=== PATIENT | female | born 1950 | race Caucasian/White ===

== ENCOUNTER → 2016-06-10 | Outpatient (CLI) | payer MEDICARE, BC ==
[2016-06-10 12:07] LABS: Basophils # (A) 0.1 k/uL (0-0.2); Basophils % (A) 1 %; CH 31.7; CHCM 31.8; Eosinophils # (A) 0.5 k/uL (0-0.7); Eosinophils % (A) 8 %; HCT 48.8 % (34.0-46.0); HDW 2.62; HGB 15.2 gm/dL (11.4-16.0); Luc # (Auto) 0.13; Luc % (Auto) 2; Lymphocytes # (A) 1.3 k/uL (1.0-4.8); Lymphocytes % (A) 20 %; MCH 31.2 pg (25.0-35.0); MCHC 31.2 g/dL (31.0-37.0); MCV 100.1 fL (80.0-100.0); Mean Platelet Volume 9.4; Monocytes # (A) 0.4 k/uL (0-1.0); Monocytes % (A) 6 %; Neutrophils # (A) 4.1 k/uL (1.3-7.7); Neutrophils % (A) 63 %; RBC 4.88 m/uL (3.80-5.40); RDW 13.1 % (11.5-15.5); WBC 6.6 k/uL (3.8-10.6); WBC (Perox) 6.54
[2016-06-10 12:42] LABS: ALT 37 U/L (9-52); AST 34 U/L (14-36); Alkaline Phosphatase 95 U/L (38-126); Anion Gap 10 mmol/L; Blood Urea Nitrogen 21 mg/dL (7-17); Calcium 9.6 mg/dL (8.4-10.2); Carbon Dioxide 29 mmol/L (22-30); Chloride 104 mmol/L (98-107); Glucose 182 mg/dL (74-99); Non-African American GFR(MDRD) >60 (>60 ml/min/1.73 sqM); Potassium 4.9 mmol/L (3.5-5.1); Sodium 143 mmol/L (137-145); Total Bilirubin 0.9 mg/dL (0.2-1.3); Total Protein 7.3 g/dL (6.3-8.2)
[2016-06-10 14:20] LABS: Hemoglobin A1C 7.8 % (4.2-6.1)
== END | disposition home or self-care (01) ==
LOC: LABWHC1 11:08
PROVIDERS: ATTEND Family Medicine
DX: E11.9 Type 2 diabetes mellitus without complications (principal)
CPT/HCPCS: 36415; 80053; 83036; 85025

== ENCOUNTER → 2016-11-28 | Outpatient (CLI) | payer MEDICARE, BC ==
[2016-11-28 11:50] LABS: Basophils % (A) 1 %; CH 31.8; CHCM 32.4; Eosinophils # (A) 0.4 k/uL (0-0.7); Eosinophils % (A) 8 %; HCT 47.4 % (34.0-46.0); HDW 2.65; HGB 15.3 gm/dL (11.4-16.0); Luc # (Auto) 0.11; Luc % (Auto) 2; Lymphocytes # (A) 1.2 k/uL (1.0-4.8); Lymphocytes % (A) 24 %; MCH 31.8 pg (25.0-35.0); MCHC 32.3 g/dL (31.0-37.0); MCV 98.6 fL (80.0-100.0); Mean Platelet Volume 8.4; Monocytes # (A) 0.3 k/uL (0-1.0); Monocytes % (A) 5 %; Neutrophils # (A) 3.2 k/uL (1.3-7.7); Neutrophils % (A) 61 %; RBC 4.81 m/uL (3.80-5.40); RDW 12.6 % (11.5-15.5); WBC 5.3 k/uL (3.8-10.6); WBC (Perox) 5.41
[2016-11-28 12:04] LABS: ALT 40 U/L (9-52); AST 26 U/L (14-36); Alkaline Phosphatase 85 U/L (38-126); Anion Gap 9 mmol/L; Blood Urea Nitrogen 20 mg/dL (7-17); Calcium 9.7 mg/dL (8.4-10.2); Carbon Dioxide 28 mmol/L (22-30); Chloride 105 mmol/L (98-107); Cholesterol 163 mg/dL (<200); Glucose 153 mg/dL (74-99); HDL Cholesterol 61 mg/dL (40-60); Non-African American GFR(MDRD) >60 (>60 ml/min/1.73 sqM); Potassium 4.9 mmol/L (3.5-5.1); Sodium 142 mmol/L (137-145); Total Bilirubin 0.8 mg/dL (0.2-1.3); Total Protein 6.8 g/dL (6.3-8.2); Triglycerides 167 mg/dL (<150)
[2016-11-28 13:59] LABS: Hemoglobin A1C 7.6 % (4.2-6.1)
== END | disposition home or self-care (01) ==
LOC: LABWHC1 11:14
PROVIDERS: ATTEND Family Medicine
DX: E55.9 Vitamin D deficiency, unspecified (principal); E66.9 Obesity, unspecified; E11.9 Type 2 diabetes mellitus without complications
CPT/HCPCS: 36415; 80053; 80061; 82306; 83036; 84443; 85025

== ENCOUNTER → 2016-12-20 | Outpatient (CLI) | payer MEDICARE, BC ==
--- NOTE | 2016-12-24 07:13 | MM ---
Reason for exam: screening (asymptomatic). Last mammogram was performed 1 year and 3 months ago. History: Patient is postmenopausal. Family history of premenopausal breast cancer in sister at age 40. Physical Findings: A clinical breast exam by your physician is recommended on an annual basis and results should be correlated with mammographic findings. MG 3D Screening Mammo W/Cad Bilateral CC and MLO view(s) were taken. Prior study comparison: October 04, 2015, bilateral MG 3d screening mammo w/cad. April 13, 2014, bilateral MG screening mammo w CAD. March 05, 2013, bilateral digital screening mammo w/CAD. There are scattered fibroglandular densities. Finding: There are typically benign round, linear calcifications in both breasts. There is no discrete abnormality. ASSESSMENT: Benign, BI-RAD 2 RECOMMENDATION: Routine screening mammogram of both breasts in 1 year.
== END | disposition home or self-care (01) ==
LOC: RADMAMWWP 14:46
PROVIDERS: ATTEND Family Medicine
DX: Z12.31 Encounter for screening mammogram for malignant neoplasm of breast (principal)
CPT/HCPCS: 77063; G0202

== ENCOUNTER → 2017-02-05 | Outpatient (CLI) | payer MEDICARE, BC ==
[2017-02-05 11:57] LABS: Basophils % (A) 0 %; CH 32.1; CHCM 32.4; Eosinophils # (A) 0.5 k/uL (0-0.7); Eosinophils % (A) 8 %; HCT 48.5 % (34.0-46.0); HDW 2.66; HGB 15.8 gm/dL (11.4-16.0); Luc # (Auto) 0.16; Luc % (Auto) 2; Lymphocytes # (A) 1.7 k/uL (1.0-4.8); Lymphocytes % (A) 24 %; MCH 32.5 pg (25.0-35.0); MCHC 32.7 g/dL (31.0-37.0); MCV 99.6 fL (80.0-100.0); Mean Platelet Volume 8.5; Monocytes # (A) 0.4 k/uL (0-1.0); Monocytes % (A) 5 %; Neutrophils # (A) 4.2 k/uL (1.3-7.7); Neutrophils % (A) 60 %; RBC 4.87 m/uL (3.80-5.40); RDW 12.6 % (11.5-15.5); WBC (Perox) 6.82
[2017-02-05 12:32] LABS: Hemoglobin A1C 6.8 % (4.2-6.1)
[2017-02-05 12:50] LABS: ALT 34 U/L (9-52); AST 26 U/L (14-36); Alkaline Phosphatase 92 U/L (38-126); Anion Gap 10 mmol/L; Blood Urea Nitrogen 18 mg/dL (7-17); C Reactive Protein 9.5 mg/L (<10.0); Calcium 9.5 mg/dL (8.4-10.2); Carbon Dioxide 27 mmol/L (22-30); Chloride 104 mmol/L (98-107); Cholesterol 189 mg/dL (<200); Creatine Kinase 29 U/L (30-135); Glucose 166 mg/dL (74-99); HDL Cholesterol 57 mg/dL (40-60); Magnesium 1.8 mg/dL (1.6-2.3); Non-African American GFR(MDRD) >60 (>60 ml/min/1.73 sqM); Potassium 5.5 mmol/L (3.5-5.1); Sodium 141 mmol/L (137-145); Total Bilirubin 0.8 mg/dL (0.2-1.3); Total Protein 7.1 g/dL (6.3-8.2); Uric Acid 6.6 mg/dL (3.7-7.4)
[2017-02-05 14:35] LABS: Erythrocyte Sedimentation Rate 10 mm/hr (0-20)
[2017-02-06 01:45] LABS: ANA w/Reflex to Titer POSITIVE (NEGATIVE); Cyclic Citrull Pep IgG Unit <0.5 U/mL; Cyclic Citrullinated Pep IgG NEGATIVE (NEGATIVE)
== END | disposition home or self-care (01) ==
LOC: LABWHC1 10:36
PROVIDERS: ATTEND Internal Medicine
DX: E78.5 Hyperlipidemia, unspecified (principal); E11.9 Type 2 diabetes mellitus without complications; E03.9 Hypothyroidism, unspecified; E66.9 Obesity, unspecified; E55.9 Vitamin D deficiency, unspecified; M06.9 Rheumatoid arthritis, unspecified
CPT/HCPCS: 36415; 80053; 80061; 82306; 82550; 82570; 83036; 83605; 83735; 84156; 84439; 84443; 84550; 85025; 85652; 86038; 86039; 86140; 86200; 86225

== ENCOUNTER → 2017-02-17 | Outpatient (CLI) | payer MEDICARE, BC | END | disposition home or self-care (01) | LOC: LABWHC1 14:42 | PROVIDERS: ATTEND Internal Medicine | DX: E87.5 Hyperkalemia (principal); E11.9 Type 2 diabetes mellitus without complications | CPT/HCPCS: 36415; 84132 ==

== ENCOUNTER → 2017-07-03 | Outpatient (CLI) | payer MEDICARE, BC ==
[2017-07-03 10:55] LABS: Basophils # (A) 0.1 k/uL (0-0.2); Basophils % (A) 1 %; Eosinophils # (A) 0.6 k/uL (0-0.7); Eosinophils % (A) 9 %; HCT 46.8 % (34.0-46.0); HGB 14.5 gm/dL (11.4-16.0); Lymphocytes # (A) 1.5 k/uL (1.0-4.8); Lymphocytes % (A) 24 %; MCH 31.5 pg (25.0-35.0); MCHC 31.1 g/dL (31.0-37.0); MCV 101.3 fL (80.0-100.0); Mean Platelet Volume 8.7; Monocytes # (A) 0.3 k/uL (0-1.0); Monocytes % (A) 5 %; Neutrophils # (A) 3.7 k/uL (1.3-7.7); Neutrophils % (A) 59 %; Platelet Count 191 k/uL (150-450); RBC 4.62 m/uL (3.80-5.40); RDW 12.3 % (11.5-15.5); WBC 6.2 k/uL (3.8-10.6)
[2017-07-03 11:14] LABS: ALT 25 U/L (9-52); AST 22 U/L (14-36); Albumin 3.7 g/dL (3.5-5.0); Alkaline Phosphatase 90 U/L (38-126); Anion Gap 9 mmol/L; Blood Urea Nitrogen 18 mg/dL (7-17); Calcium 9.4 mg/dL (8.4-10.2); Carbon Dioxide 30 mmol/L (22-30); Chloride 105 mmol/L (98-107); Cholesterol 165 mg/dL (<200); Glucose 167 mg/dL (74-99); HDL Cholesterol 55 mg/dL (40-60); LDL Cholesterol,Calculated 84 mg/dL (0-99); Potassium 4.8 mmol/L (3.5-5.1); Sodium 144 mmol/L (137-145); Total Bilirubin 0.5 mg/dL (0.2-1.3); Total Protein 6.5 g/dL (6.3-8.2); Triglycerides 131 mg/dL (<150)
--- NOTE | 2017-07-03 13:47 | XR ---
EXAMINATION TYPE: XR bone survey complete DATE OF EXAM: 07/03/2017 COMPARISON: NONE HISTORY: Deep vein thrombosis of lower extremities (HCC) Technique: Complete bone survey. FINDINGS: CXR: Lungs are clear without pleural effusion or pneumothorax seen bilaterally. Cardiac silhouette size is within normal limits. Accessory right C7 rib noted. No suspicious focal lytic or expansile o sseous lesion clearly seen. Bony calvarium : 2 views of the bony calvarium demonstrate no suspicious definitive focal irregular l ytic lesion. Spine: Two views of the cervical, thoracic and lumbar spines are submitted. Lumbar spine shows disc space narrowing with spurring L2-L3 level. There is vacuum disc phenomenon with sclerosis L3-L4 level . There is moderate to advanced disc space narrowing with vacuum disc phenomenon L4-L5 level. Spine i s straightened on lateral view. Osseous structures are somewhat demineralized. No definitive focal ly tic lesion is present. Moderate vascular calcification right neck is noted at carotid bulb level. PELVIS: Single view of the pelvis demonstrates metallic stent graft left common iliac region. Lucenc y from overlying bowel gas is noted making evaluation slightly suboptimal. No obvious suspicious lyti c lesion is present. UPPER EXTREMITIES: Two views of the upper extremities show no definitive focal lytic lesion. LOWER EXTREMITIES: 2 views of the lower extremities shows degenerative change at bilateral knee joint s. No definitive suspicious focal lytic scalloping lesion is identified. IMPRESSION: No definitive suspicious focal lytic lesions identified on survey.
[2017-07-03 17:37] LABS: Hemoglobin A1C 7.3 % (4.0-6.0)
== END | disposition home or self-care (01) ==
LOC: LABWHC1 10:18
PROVIDERS: ATTEND Internal Medicine Hematology & Oncology
DX: E03.9 Hypothyroidism, unspecified (principal); E11.9 Type 2 diabetes mellitus without complications; E78.2 Mixed hyperlipidemia; E55.9 Vitamin D deficiency, unspecified; I82.5Z9 Chronic embolism and thrombosis of unspecified deep veins of unspecified distal lower extremity; M17.0 Bilateral primary osteoarthritis of knee
CPT/HCPCS: 36415; 77075; 80053; 80061; 82043; 82306; 82570; 83036; 84443; 85025

== ENCOUNTER → 2018-06-09 | Outpatient (CLI) | payer MEDICARE, BC ==
--- NOTE | 2018-06-13 11:09 | MM ---
Reason for exam: screening (asymptomatic). Last mammogram was performed 1 year and 6 months ago. History: Patient is postmenopausal. Family history of premenopausal breast cancer in sister at age 40. Took hormonal contraceptives for 5 years. MG 3D Screening Mammo W/Cad Bilateral CC and MLO view(s) were taken. Prior study comparison: December 20, 2016, bilateral MG 3d screening mammo w/cad. October 04, 2015, bilateral MG 3d screening mammo w/cad. There are scattered fibroglandular densities. No significant changes when compared with prior studies. ASSESSMENT: Benign, BI-RAD 2 RECOMMENDATION: Routine screening mammogram of both breasts in 1 year.
== END | disposition home or self-care (01) ==
LOC: RADMAMWWP 15:39
PROVIDERS: ATTEND Internal Medicine
DX: Z12.31 Encounter for screening mammogram for malignant neoplasm of breast (principal)
CPT/HCPCS: 77063; 77067

== ENCOUNTER → 2018-10-30 | Outpatient (CLI) | payer MEDICARE, BC ==
--- NOTE | 2018-10-30 15:38 | XR ---
EXAMINATION TYPE: XR chest 2V DATE OF EXAM: 10/30/2018 COMPARISON: 06/08/2013 HISTORY: Persistent cough TECHNIQUE: Frontal and lateral views of the chest are obtained. FINDINGS: Diffuse interstitial prominence in the gradient effect greatest at the lung bases. Cardiom ediastinal limits within normal limits. No sizable pleural effusion or pneumothorax. Mild diffuse oss eous demineralization and minimal degenerative changes of the spine are seen. Overall there are low l faustino volumes. IMPRESSION: Although there are low lung volumes accentuate pulmonary vasculature there appears to be mild diffuse interstitial prominence that can be seen in atypical pneumonitis or mild interstitial p ulmonary edema.
== END ==
LOC: RADXRMAIN 15:13
PROVIDERS: ATTEND Internal Medicine
DX: R05 Cough (principal)
CPT/HCPCS: 71046

== ENCOUNTER → 2018-11-17 | Outpatient (CLI) | payer MEDICARE, BC ==
[2018-11-17 12:52] LABS: Basophils % (A) 1 %; Eosinophils # (A) 0.4 k/uL (0-0.7); Eosinophils % (A) 7 %; HGB 14.5 gm/dL (11.4-16.0); Lymphocytes # (A) 1.3 k/uL (1.0-4.8); Lymphocytes % (A) 19 %; MCH 31.5 pg (25.0-35.0); MCHC 31.5 g/dL (31.0-37.0); MCV 100.3 fL (80.0-100.0); Mean Platelet Volume 8.2; Monocytes # (A) 0.3 k/uL (0-1.0); Monocytes % (A) 5 %; Neutrophils # (A) 4.4 k/uL (1.3-7.7); Neutrophils % (A) 66 %; Platelet Count 183 k/uL (150-450); RBC 4.59 m/uL (3.80-5.40); RDW 12.6 % (11.5-15.5); WBC 6.6 k/uL (3.8-10.6)
[2018-11-17 13:12] LABS: Appearance,Urine Cloudy (Clear); Bilirubin,Urine Negative (Negative); Blood,Urine Small (Negative); Color,Urine Yellow; Glucose,Urine (UA) Negative (Negative); Hyaline Casts,Urine 1 /lpf (0-2); Ketones,Urine Negative (Negative); Leukocyte Esterase,Urine Trace (Negative); Mucus,Urine Rare /hpf; Nitrite,Urine Negative (Negative); PH, Urine 5.5 (5.0-8.0); Protein,Urine 1+ (Negative); RBC,Urine 8 /hpf (0-5); Specific Gravity,Urine 1.027 (1.001-1.035); Squamous Epithelial Cell,Urine 3 /hpf (0-4); Uric Acid Crystals,Urine Few /hpf; Urobilinogen,Urine <2.0 mg/dL (<2.0); WBC,Urine 7 /hpf (0-5)
[2018-11-17 22:35] LABS: Hemoglobin A1C 7.2 % (4.0-6.0)
[2018-11-18 03:47] LABS: African American GFR (CKD) 103.2 (60.0-200.0); Albumin 4.1 g/dL (3.80-4.90); Albumin/Globulin Ratio 1.78 (1.60-3.17); Anion Gap 10.2 mmol/L (4.00-12.00); BUN/Creat Ratio 24.29 Ratio (12.00-20.00); Calcium 9.7 mg/dL (8.7-10.3); Carbon Dioxide 23.8 mmol/L (21.6-31.8); Globulin 2.3 g/dL (1.6-3.3); Potassium 5.3 mmol/L (3.5-5.5); Total Bilirubin 0.8 mg/dL (0.3-1.2); Total Protein 6.4 g/dL (6.2-8.2)
== END | disposition home or self-care (01) ==
LOC: LABWHC1 11:21
PROVIDERS: ATTEND Internal Medicine
DX: E11.9 Type 2 diabetes mellitus without complications (principal); E55.9 Vitamin D deficiency, unspecified; N39.0 Urinary tract infection, site not specified; E03.9 Hypothyroidism, unspecified; E78.2 Mixed hyperlipidemia
CPT/HCPCS: 36415; 80053; 80061; 81001; 82043; 82306; 82570; 83036; 84443; 85025; 87086

== ENCOUNTER 2018-12-01 15:21 | Emergency (ER) | payer MEDICARE, BC ==
[2018-12-01] MEDS ORDERED: OXYMETAZOLINE 0.05% NASL SPRAY 1 SPRAY BOTTLE NASAL STA (16:13)
[2018-12-01 16:28] VITALS: RESP 20
--- NOTE | 2018-12-01 17:00 | ED ---
ENT HPI - General Chief complaint: ENT Stated complaint: nose bleed Time Seen by Provider: 12/01/18 15:41 Source: patient Mode of arrival: wheelchair Limitations: no limitations - History of Present Illness Initial comments: Patient is a 68-year-old female presenting to emergency Department with epistaxis. Patient reports active bleeding started approximately one hour ago and has only resolved recently. Patient reports swallowing and spitting up blood. Patient reports applying pressure on bilateral nostrils leaning her head forward. Patient reports the bleeding is localized to the right nausea. Patient denies nausea, vomiting, headache, dizziness, lightheadedness or syncope. Patient denies any trauma to the nose. Patient denies previous h istory of epistaxis. Patient reports sleeping next to her and her conditioning vent. - Related Data Home Medications Medication Instructions Recorded Confirmed Acetaminophen [Tylenol 8 Hour] 650 mg PO Q8H 12/01/18 12/01/18 Albuterol Sulfate [Proair Hfa] 2 puff INHALATION RT-Q6H PRN 12/01/18 12/01/18 Aspirin EC [Ecotrin Low Dose] 81 mg PO BID 12/01/18 12/01/18 Cholecalciferol [Vitamin D3 (25 4,000 unit PO BID 12/01/18 12/01/18 Mcg = 1000 Iu)] metFORMIN HCL [Glucophage] 500 mg PO BID 12/01/18 12/01/18 Allergies Allergy/AdvReac Type Severity Reaction Status Date / Time amoxicillin Allergy Rash/Hives Verified 12/01/18 16:05 dill weed Allergy Rash/Hives Uncoded 12/01/18 16:05 Review of Systems ROS Statement: Those systems with pertinent positive or pertinent negative responses have been documented in the HPI. ROS Other: All systems not noted in ROS Statement are negative. Past Medical History Additional Past Medical History / Comment(s): kidney stones. blood clot in leg History of Any Multi-Drug Resistant Organisms: None Reported Past Surgical History: Hysterectomy, Orthopedic Surgery, Tubal Ligation Additional Past Surgical History / Comment(s): kidney stone removal Past Psychological History: No Psychological Hx Reported Smoking Status: Former smoker Past Alcohol Use History: None Reported Past Drug Use History: None Reported General Exam Limitations: no limitations General appearance: alert, in no apparent distress, obese Head exam: Present: atraumatic, normocephalic, normal inspection Eye exam: Present: normal appearance, PERRL, EOMI Pupils: Present: normal accommodation ENT exam: Present: mucous membranes moist, normal external ear exam. Absent: normal exam, normal oropharynx (Blood residue noted in the right nostril. Blood residue also noted on the posterior pharynx. Ruptured blood vessel cannot be localized) Neck exam: Present: normal inspection, full ROM Respiratory exam: Present: normal lung sounds bilaterally Cardiovascular Exam: Present: regular rate, normal rhythm, normal heart sounds Extremities exam: Present: normal inspection, full ROM Back exam: Present: normal inspection, full ROM Neurological exam: Present: alert, oriented X3 Psychiatric exam: Present: normal affect, normal mood Skin exam: Present: warm, intact, normal color Course Vital Signs 12/01/18 12/01/18 12/01/18 15:33 16:27 17:10 Temperature 97.5 F L 98.1 F Pulse Rate 101 H 106 H 88 Respiratory 18 20 20 Rate Blood Pressure 173/108 154/91 157/85 O2 Sat by Pulse 95 95 99 Oximetry Medical Decision Making - Medical Decision Making Patient is a 68-year-old female presenting to the emergency department with epistaxis. On examination no active bleeding was noted . Afrin nasal spray was applied to bilateral nostrils and pressure was reapplied for approximately 10- 15 minutes. At this point the bleeding has completely resolved. I could not visualize a blood vessel responsible for the epistaxis. Although I suspect this to be an anterior nosebleed. Patient advised to use [place] several times throughout the day and avoid staying close to open air vents. Patient advised to apply Vaseline bilateral nostrils twice a day. Patient advised to follow up with ENT. Strict return parameters were thoroughly discussed with patient who is understanding and agreeable. Case discussed with physician. Disposition Clinical Impression: Epistaxis not due to trauma Disposition: HOME SELF-CARE Condition: Stable Instructions (If sedation given, give patient instructions): Nosebleed (ED) Additional Instructions: Please follow-up with ENT. Avoid staying close to air-conditioning or events. Apply [place] several times throughout the day and Vaseline in both nostrils. Use Afrin spray if the nosebleed recurs. Is patient prescribed a controlled substance at d/c from ED?: No Referrals: Pat Angulo MD [Primary Care Provider] - 1-2 days Ronni Bateman DO [Doctor of Osteopathic Medicine] - 1-2 days Time of Disposition: 17:00
[2018-12-01 17:20] VITALS: BP 157/85; PULSE 88; TEMP 98.1
== END 2018-12-01 17:10 | disposition home or self-care (01) ==
LOC: EC 15:21
DX: R04.0 Epistaxis (principal); Z79.82 Long term (current) use of aspirin; Z79.84 Long term (current) use of oral hypoglycemic drugs; Z88.0 Allergy status to penicillin; Z91.048 Other nonmedicinal substance allergy status; Z87.891 Personal history of nicotine dependence
CPT/HCPCS: 99283

== ENCOUNTER → 2018-12-24 | Outpatient (CLI) | payer MEDICARE, BC ==
--- NOTE | 2018-12-25 07:57 | XR ---
EXAMINATION TYPE: XR KUB DATE OF EXAM: 12/24/2018 4:14 PM CLINICAL HISTORY: Follow-up for bilateral kidney stones TECHNIQUE: Single supine KUB image of the abdomen is obtained. COMPARISON: 05/16/2013. FINDINGS: There is a levoscoliosis of the lumbar spine and severe degenerative disc disease. Left com mon iliac vascular graft is noted. Similar to 2013 there is a calculus overlying the right renal shadow appearing 1.7 cm in size. Puncta te 2 mm left lower pole renal calculus is suspected. Phleboliths are seen within the pelvis. No calcu li overlie the course of the ureters. No dilated large or small bowel. IMPRESSION: Similar approximately 1.6 cm calculus overlying the right renal midpole/pelvis in compari son the prior 2012 with probable left lower pole renal calculus.
== END | disposition home or self-care (01) ==
LOC: RADXRMAIN 16:03
PROVIDERS: ATTEND Urology
DX: N20.0 Calculus of kidney (principal)
CPT/HCPCS: 74018

== ENCOUNTER 2019-02-05 14:15 | Emergency (ER) | payer MEDICARE, BC ==
[2019-02-05 15:02] LABS: Appearance,Urine Clear (Clear); Bilirubin,Urine Negative (Negative); Blood,Urine Moderate (Negative); Color,Urine Yellow; Glucose,Urine (UA) 2+ (Negative); Ketones,Urine Negative (Negative); Leukocyte Esterase,Urine Negative (Negative); Mucus,Urine Rare /hpf; Nitrite,Urine Negative (Negative); PH, Urine 5.5 (5.0-8.0); Protein,Urine 1+ (Negative); RBC,Urine 178 /hpf (0-5); Specific Gravity,Urine 1.011 (1.001-1.035); Squamous Epithelial Cell,Urine 1 /hpf (0-4); Urobilinogen,Urine <2.0 mg/dL (<2.0); WBC,Urine 5 /hpf (0-5)
[2019-02-05] MEDS ORDERED: SODIUM CHLORIDE 0.9% 500 ML 500 ML IV STA (15:32)
[2019-02-05 16:33] LABS: Basophils # (A) 0.2 k/uL (0-0.2); Basophils % (A) 1 %; Eosinophils # (A) 0.5 k/uL (0-0.7); Eosinophils % (A) 4 %; HCT 48.7 % (34.0-46.0); HGB 15.2 gm/dL (11.4-16.0); Lymphocytes # (A) 1.6 k/uL (1.0-4.8); Lymphocytes % (A) 12 %; MCH 30.9 pg (25.0-35.0); MCHC 31.2 g/dL (31.0-37.0); MCV 99.2 fL (80.0-100.0); Mean Platelet Volume 8.4; Monocytes # (A) 0.5 k/uL (0-1.0); Monocytes % (A) 4 %; Neutrophils # (A) 10.4 k/uL (1.3-7.7); Neutrophils % (A) 78 %; Platelet Count 216 k/uL (150-450); RBC 4.91 m/uL (3.80-5.40); RDW 12.4 % (11.5-15.5); WBC 13.4 k/uL (3.8-10.6)
--- NOTE | 2019-02-05 16:53 | XR ---
EXAMINATION TYPE: XR KUB DATE OF EXAM: 02/05/2019 4:47 PM CLINICAL HISTORY: Left lower quadrant pain. History of kidney stones. TECHNIQUE: Two Upright KUB images of the abdomen are obtained. COMPARISON: Abdominal x-ray December 24, 2018. FINDINGS: Some paucity of bowel gas. Scattered gas seen in nondistended small and large bowel loops i ncluding rectum. Left common iliac artery stent graft noted. Underlying levoconvex scoliosis. Multile nicolette moderate to severe disc space narrowing and spurring in the mid to lower lumbar spine. No definit veronica nephrolithiasis. Lung bases are clear. IMPRESSION: Overall nonobstructive bowel gas pattern. No definitive nephrolithiasis.
--- NOTE | 2019-02-05 17:02 | US ---
EXAMINATION TYPE: US renals and bladder DATE OF EXAM: 02/05/2019 COMPARISON: CT abdomen and pelvis May 17, 2013 CLINICAL HISTORY: pain, hx kidney stone. LLQ pain hx of kidney stones stent in left kidney.Exam limit ed due to body habitus. EXAM MEASUREMENTS: Right Kidney: 12.3 x 6.8 x 7.3 cm Left Kidney: 11.3 x 5.8 x 5.4 cm Right Kidney: Multiple echogenic foci seen suggestive of kidney stones. Left Kidney: No hydronephrosis or stones seen. Bladder: wnl Bilateral Jets seen: No left. Suboptimal due to body habitus. No gross hydronephrosis is present bilaterally. Bladder not greatly d istended. Probable large simple appearing cyst right kidney as there is lobulated anechoic to hypoech oic area upper to midpole level correlating with CT. IMPRESSION: Suboptimal study without gross hydronephrosis identified bilaterally.
[2019-02-05 18:11] LABS: ALT 18 U/L (9-52); AST 25 U/L (14-36); African American GFR (CKD) >90 (>60 ml/min/1.73 sqM); Albumin 3.7 g/dL (3.5-5.0); Alkaline Phosphatase 69 U/L (38-126); Anion Gap 9 mmol/L; Blood Urea Nitrogen 17 mg/dL (7-17); Calcium 8.9 mg/dL (8.4-10.2); Carbon Dioxide 22 mmol/L (22-30); Chloride 110 mmol/L (98-107); Glucose 125 mg/dL (74-99); Non-African American GFR(CKD) >90 (>60 ml/min/1.73 sqM); Potassium 4.6 mmol/L (3.5-5.1); Sodium 141 mmol/L (137-145); Total Bilirubin 0.6 mg/dL (0.2-1.3); Total Protein 6.5 g/dL (6.3-8.2)
--- NOTE | 2019-02-05 19:28 | CT ---
EXAMINATION TYPE: CT abdomen pelvis wo con DATE OF EXAM: 02/05/2019 COMPARISON: CT abdomen/pelvis 05/17/2013 HISTORY: LLQ pain CT DLP: [id number] mGycm Automated exposure control for dose reduction was used. TECHNIQUE: Helical acquisition of images was performed from the lung bases through the pelvis. No co ntrast was given. FINDINGS: The study is limited due to lack of intravenous contrast. Limited evaluation of the lung bases due to respiratory motion. The liver is morphologically normal. Fatty atrophy of the pancreas. The spleen is not enlarged. No ca lcified gallstones. Adrenal glands are morphologically normal. Bilateral fluid attenuation renal lesions statistically represent cysts. Multiple calculi within the right renal pelvis which are noncoalescing currently. Nonspecific perinephric fat stranding, left mor e so than right. Punctate calcification in the region of the right ureterovesicular junction without hydronephrosis. Punctate nonobstructing left renal calculi. No urinary bladder calculi. Atrophic vers us surgically absent uterus. Multiple pelvic phleboliths. No dilated bowel, free air, or free fluid. Sigmoid colonic diverticula without mesenteric inflammatio n. Appendix is nondilated. Small sliding-type hiatal hernia. Aortoiliac vascular calcifications without aortic aneurysm. Left common iliac venous stent noted. No osseous destructive lesion. Degenerative changes throughout the lumbar spine, advanced on L2-L5. IMPRESSION: 1. Multiple calculi within the right renal pelvis possibly forming early staghorn calculus. Punctate calcification near the right ureterovesicular junction favors a small ureteral calculus over phleboli th; no hydronephrosis. Nonobstructing left renal calculi. 2. Colonic diverticulosis without evidence of diverticulitis. 3. Small hiatal hernia.
--- NOTE | 2019-02-05 20:00 | ED ---
General Adult HPI <Haris Loyola - Last Filed: 02/05/19 20:04> - General Source: patient, RN notes reviewed, old records reviewed Mode of arrival: wheelchair Limitations: no limitations <Antony Posada - Last Filed: 02/05/19 20:11> - General Chief complaint: Abdominal Pain Stated complaint: kidney stone Time Seen by Provider: 02/05/19 14:58 - History of Present Illness Initial comments: 68-year-old female patient past history of renal calculi presents ED with left- sided lower flank pain, left lower quadrant pain. Patient reports she has some nausea without emesis. Denies any chest pain shortness of breath. Denies any complaints. Patient follows up with Dr. Nicole for her renal calculi. Denies other complaints. Systemic: Pt denies fatigue, fever/chills, rash. Pt denies weakness, night swe ats, weight loss. Neuro: Pt denies headache, visual disturbances, syncope or pre-syncope. HEENT: Pt denies ocular discharge or irritation, otalgia, rhinorrhea, pharyngitis or notable lymphadenopathy. Cardiopulmonary: Pt denies chest pain, SOB, heart palpitations, dyspnea on exertion. Abdominal/GI: Pt denies abdominal pain, n/v/d. : Pt denies dysuria, burning w/ urination, frequency/urgency. Denies new onset urinary or bowel incontinence. MSK: Pt denies myalgia, loss of strength or function in extremities. Neuro: Pt denies new onset weakness, paresthesias. (Antony Posada) - Related Data Home Medications Medication Instructions Recorded Confirmed Acetaminophen [Tylenol 8 Hour] 650 mg PO Q8H 12/01/18 02/05/19 Albuterol Sulfate [Proair Hfa] 2 puff INHALATION RT-Q6H PRN 12/01/18 02/05/19 Aspirin EC [Ecotrin Low Dose] 81 mg PO BID 12/01/18 02/05/19 Cholecalciferol [Vitamin D3 (25 4,000 unit PO BID 12/01/18 02/05/19 Mcg = 1000 Iu)] metFORMIN HCL [Glucophage] 500 mg PO BID 12/01/18 02/05/19 Previous Rx's Medication Instructions Recorded traMADol HCl [Ultram] 50 mg PO Q6H PRN 3 Days #12 tab 02/05/19 Allergies Allergy/AdvReac Type Severity Reaction Status Date / Time amoxicillin Allergy Rash/Hives Verified 02/05/19 15:13 dill weed Allergy Rash/Hives Uncoded 02/05/19 15:13 Review of Systems ROS Other: All systems not noted in ROS Statement are negative. <NirHaris - Last Filed: 02/05/19 20:04> ROS Other: All systems not noted in ROS Statement are negative. <Antony Posada - Last Filed: 02/05/19 20:11> ROS Statement: Those systems with pertinent positive or pertinent negative responses have been documented in the HPI. Past Medical History Additional Past Medical History / Comment(s): kidney stones. blood clot in leg History of Any Multi-Drug Resistant Organisms: None Reported Past Surgical History: Hysterectomy, Orthopedic Surgery, Tubal Ligation Additional Past Surgical History / Comment(s): kidney stone removal Past Psychological History: No Psychological Hx Reported Smoking Status: Former smoker Past Alcohol Use History: None Reported Past Drug Use History: None Reported <Antony Posada - Last Filed: 02/05/19 20:11> General Exam Limitations: no limitations <Antony Posada - Last Filed: 02/05/19 20:11> - General Exam Comments Initial Comments: Constitutional: NAD, AOX3, Pt has pleasant affect. HEENT: NC/AT, trachea midline, neck supple, no lymphadenopathy. Posterior pharynx non erythematous, without exudates. External ears appear normal, without discharge. Mucous membranes moist. Eyes PERRLA, EOM intact. There is no scleral icterus. No pallor noted. Cardiopulmonary: RRR, no murmurs, rubs or gallops, no JVD noted. Lungs CTAB in anterior and posterior davis. No peripheral edema. Abdominal exam: Abdomen soft and non-distended. Left lower quadrant mild tenderness to palpation, no other areas of rebound tenderness, no ecchymoses.. Bowel sounds active in LLQ. No hepatosplenomegaly. No ecchymosis Neuro: CN II-XII grossly intact. No nuchal rigidity. No raccon eyes, no tao sign, no hemotympanum. No cervical spinal tenderness. MSK: No posterior calf tenderness bilaterally, homans sign negative bilaterally. Posterior tibialis and radial pulse +2 bilaterally. Sensation intact in upper and lower extremities. Full active ROM in upper and lower extremities, 5/5 stregnth. (Antony Posada) Course Vital Signs 02/05/19 02/05/19 14:15 18:37 Temperature 97.9 F Pulse Rate 104 H 90 Respiratory 20 16 Rate Blood Pressure 159/93 145/97 O2 Sat by Pulse 94 L 95 Oximetry Medical Decision Making - Lab Data Result diagrams: 02/05/19 16:20 02/05/19 17:30 <Haris Loyola - Last Filed: 02/05/19 20:04> - Lab Data Result diagrams: 02/05/19 16:20 02/05/19 17:30 <Antony Posada - Last Filed: 02/05/19 20:11> - Medical Decision Making Medical decision making; this is a 68-year-old female here with significant other. The patient had left lower quadrant pain. She thought she may be having a kidney stone as she has had multiple the past. She has chronic blood in the urine from chronic kidney stones and renal cyst. The patient took one Ultram the pain went away. The patient is in emergency room at this time. Parent cur rently pain-free no nausea no vomiting. The patient was also afraid she may have had an episode of diverticulitis. In emergency room the patient had lab work done that showed a white count of 13.4 hemoglobin 15 hematocrit of 48 with potassium 4.6. BUN 17 creatinine 0.59 and GFR greater than 90. Glucose 125. Urine shows 178 reds and 5 whites. Patient has chronic hematuria. She does see a year and a urologist for this. The patient had an ultrasound which evaluated probable renal cyst but due to the body habitus was difficult for the radiologist to determine. Patient had a CAT scan of the abdomen and pelvis and the radiologist states her multiple calculi. There is especially in the right renal pelvis. Possibly one small stone at the right UVJ but otherwise no hydronephrosis. There is colonic diverticulosis but no diverticulitis. As read by I evaluated the patient and she states she is pain-free since taking that one Ultram earlier when the pain started. She'll be following up with her urologist. Advised increase her fluids. Use Ultram for resolution of discom fort. Denies any nausea denies or declines antinausea medications at this time. Patient denies any chills or fever or sweats. Patient will be discharged home and advised to strain her urine and follow with her urologist. Dr. Loyola (Haris Loyola) 68-year-old female patient past history of renal calculi presents ED with left- sided lower flank pain, left lower quadrant pain. Patient reports she has some nausea without emesis. Denies any chest pain shortness of breath. Denies any complaints. Patient follows up with Dr. Nicole for her renal calculi. Denies other complaints. Patient vital signs stable, afebrile. Physical exam displayed mild left lower quadrant tenderness to palpation. No CVA tenderness. Investigations revealed monocytosis at 13.4. CMP unremarkable. Lactic acid 2.0. UA displayed hematuria. Patient reports this has been ongoing for weeks to to kidney stones. Patient initially declined CT abdomen and pelvis, KUB and renal ultrasound as acute process. At. Patient stressed concern that this could be diverticulitis. This was previously discussed with patient on CT was recommended. Patient reports that she does now want a CT. CTM pelvis displayed right renal calculi in the right renal pelvis, right ureteral calculi. left renal colic light. Diverticulosis without diverticulitis, small hiatal hernia. Patient reports that pain was relieved iwth ultram. At reccomendation by Dr. Loyola, Pt will be discharged with 3 days of ultram and f/u with urology and PCP. Case discussed and pt seen by Dr. Loyola. (Antony Posada) - Lab Data Lab Results 02/05/19 02/05/19 02/05/19 Range/Units 14:10 16:20 16:20 WBC 13.4 H (3.8-10.6) k/uL RBC 4.91 (3.80-5.40) m/uL Hgb 15.2 (11.4-16.0) gm/dL Hct 48.7 H (34.0-46.0) % MCV 99.2 (80.0-100.0) fL MCH 30.9 (25.0-35.0) pg MCHC 31.2 (31.0-37.0) g/dL RDW 12.4 (11.5-15.5) % Plt Count 216 (150-450) k/uL Neutrophils % 78 % Lymphocytes % 12 % Monocytes % 4 % Eosinophils % 4 % Basophils % 1 % Neutrophils # 10.4 H (1.3-7.7) k/uL Lymphocytes # 1.6 (1.0-4.8) k/uL Monocytes # 0.5 (0-1.0) k/uL Eosinophils # 0.5 (0-0.7) k/uL Basophils # 0.2 (0-0.2) k/uL Sodium (137-145) mmol/L Potassium (3.5-5.1) mmol/L Chloride (98-107) mmol/L Carbon Dioxide (22-30) mmol/L Anion Gap mmol/L BUN (7-17) mg/dL Creatinine (0.52-1.04) mg/dL Est GFR (CKD-EPI)AfAm (>60 ml/min/1.73 sqM) Est GFR (CKD-EPI)NonAf (>60 ml/min/1.73 sqM) Glucose (74-99) mg/dL Plasma Lactic Acid Srinivasa 2.0 (0.7-2.0) mmol/L Calcium (8.4-10.2) mg/dL Total Bilirubin (0.2-1.3) mg/dL AST (14-36) U/L ALT (9-52) U/L Alkaline Phosphatase (38-126) U/L Total Protein (6.3-8.2) g/dL Albumin (3.5-5.0) g/dL Urine Color Yellow Urine Appearance Clear (Clear) Urine pH 5.5 (5.0-8.0) Ur Specific [place] 1.011 (1.001-1.035) Urine Protein 1+ H (Negative) Urine Glucose (UA) 2+ H (Negative) Urine Ketones Negative (Negative) Urine Blood Moderate H (Negative) Urine Nitrite Negative (Negative) Urine Bilirubin Negative (Negative) Urine Urobilinogen <2.0 (<2.0) mg/dL Ur Leukocyte Esterase Negative (Negative) Urine RBC 178 H (0-5) /hpf Urine WBC 5 (0-5) /hpf Ur Squamous Epith Cells 1 (0-4) /hpf Urine Mucus Rare H (None) /hpf 02/05/19 Range/Units 17:30 WBC (3.8-10.6) k/uL RBC (3.80-5.40) m/uL Hgb (11.4-16.0) gm/dL Hct (34.0-46.0) % MCV (80.0-100.0) fL MCH (25.0-35.0) pg MCHC (31.0-37.0) g/dL RDW (11.5-15.5) % Plt Count (150-450) k/uL Neutrophils % % Lymphocytes % % Monocytes % % Eosinophils % % Basophils % % Neutrophils # (1.3-7.7) k/uL Lymphocytes # (1.0-4.8) k/uL Monocytes # (0-1.0) k/uL Eosinophils # (0-0.7) k/uL Basophils # (0-0.2) k/uL Sodium 141 (137-145) mmol/L Potassium 4.6 (3.5-5.1) mmol/L Chloride 110 H (98-107) mmol/L Carbon Dioxide 22 (22-30) mmol/L Anion Gap 9 mmol/L BUN 17 (7-17) mg/dL Creatinine 0.59 (0.52-1.04) mg/dL Est GFR (CKD-EPI)AfAm >90 (>60 ml/min/1.73 sqM) Est GFR (CKD-EPI)NonAf >90 (>60 ml/min/1.73 sqM) Glucose 125 H (74-99) mg/dL Plasma Lactic Acid Srinivasa (0.7-2.0) mmol/L Calcium 8.9 (8.4-10.2) mg/dL Total Bilirubin 0.6 (0.2-1.3) mg/dL AST 25 (14-36) U/L ALT 18 (9-52) U/L Alkaline Phosphatase 69 (38-126) U/L Total Protein 6.5 (6.3-8.2) g/dL Albumin 3.7 (3.5-5.0) g/dL Urine Color Urine Appearance (Clear) Urine pH (5.0-8.0) Ur Specific [place] (1.001-1.035) Urine Protein (Negative) Urine Glucose (UA) (Negative) Urine Ketones (Negative) Urine Blood (Negative) Urine Nitrite (Negative) Urine Bilirubin (Negative) Urine Urobilinogen (<2.0) mg/dL Ur Leukocyte Esterase (Negative) Urine RBC (0-5) /hpf Urine WBC (0-5) /hpf Ur Squamous Epith Cells (0-4) /hpf Urine Mucus (None) /hpf Disposition <Haris Loyola - Last Filed: 02/05/19 20:04> Is patient prescribed a controlled substance at d/c from ED?: No <Antony Posada Kathy - Last Filed: 02/05/19 20:11> Clinical Impression: Abdominal pain, Ureteral calculi Disposition: HOME SELF-CARE Condition: Stable Instructions (If sedation given, give patient instructions): Renal Colic (ED), Kidney Stones (ED) Additional Instructions: Patient to adhere to previously discussed treatment plan and will take medication(s) as directed. Patient to follow up with PCP in 1-2 days. Patient to return to ED if symptoms do not improve. Take medication as directed. Follow-up with urologist. Return to ER if condition worsens. Prescriptions: traMADol HCl [Ultram] 50 mg PO Q6H PRN 3 Days #12 tab PRN Reason: Pain Referrals: Pat Angulo MD [Primary Care Provider] - 1-2 days Ayush Nicole MD [Family Provider] - 1-2 days
--- NOTE | 2019-02-05 20:12 | ED ---
Medical Decision Making - Lab Data Result diagrams: 02/05/19 16:20 02/05/19 17:30 Lab Results 02/05/19 02/05/19 02/05/19 Range/Units 14:10 16:20 16:20 WBC 13.4 H (3.8-10.6) k/uL RBC 4.91 (3.80-5.40) m/uL Hgb 15.2 (11.4-16.0) gm/dL Hct 48.7 H (34.0-46.0) % MCV 99.2 (80.0-100.0) fL MCH 30.9 (25.0-35.0) pg MCHC 31.2 (31.0-37.0) g/dL RDW 12.4 (11.5-15.5) % Plt Count 216 (150-450) k/uL Neutrophils % 78 % Lymphocytes % 12 % Monocytes % 4 % Eosinophils % 4 % Basophils % 1 % Neutrophils # 10.4 H (1.3-7.7) k/uL Lymphocytes # 1.6 (1.0-4.8) k/uL Monocytes # 0.5 (0-1.0) k/uL Eosinophils # 0.5 (0-0.7) k/uL Basophils # 0.2 (0-0.2) k/uL Sodium (137-145) mmol/L Potassium (3.5-5.1) mmol/L Chloride (98-107) mmol/L Carbon Dioxide (22-30) mmol/L Anion Gap mmol/L BUN (7-17) mg/dL Creatinine (0.52-1.04) mg/dL Est GFR (CKD-EPI)AfAm (>60 ml/min/1.73 sqM) Est GFR (CKD-EPI)NonAf (>60 ml/min/1.73 sqM) Glucose (74-99) mg/dL Plasma Lactic Acid Srinivasa 2.0 (0.7-2.0) mmol/L Calcium (8.4-10.2) mg/dL Total Bilirubin (0.2-1.3) mg/dL AST (14-36) U/L ALT (9-52) U/L Alkaline Phosphatase (38-126) U/L Total Protein (6.3-8.2) g/dL Albumin (3.5-5.0) g/dL Urine Color Yellow Urine Appearance Clear (Clear) Urine pH 5.5 (5.0-8.0) Ur Specific [place] 1.011 (1.001-1.035) Urine Protein 1+ H (Negative) Urine Glucose (UA) 2+ H (Negative) Urine Ketones Negative (Negative) Urine Blood Moderate H (Negative) Urine Nitrite Negative (Negative) Urine Bilirubin Negative (Negative) Urine Urobilinogen <2.0 (<2.0) mg/dL Ur Leukocyte Esterase Negative (Negative) Urine RBC 178 H (0-5) /hpf Urine WBC 5 (0-5) /hpf Ur Squamous Epith Cells 1 (0-4) /hpf Urine Mucus Rare H (None) /hpf 02/05/19 Range/Units 17:30 WBC (3.8-10.6) k/uL RBC (3.80-5.40) m/uL Hgb (11.4-16.0) gm/dL Hct (34.0-46.0) % MCV (80.0-100.0) fL MCH (25.0-35.0) pg MCHC (31.0-37.0) g/dL RDW (11.5-15.5) % Plt Count (150-450) k/uL Neutrophils % % Lymphocytes % % Monocytes % % Eosinophils % % Basophils % % Neutrophils # (1.3-7.7) k/uL Lymphocytes # (1.0-4.8) k/uL Monocytes # (0-1.0) k/uL Eosinophils # (0-0.7) k/uL Basophils # (0-0.2) k/uL Sodium 141 (137-145) mmol/L Potassium 4.6 (3.5-5.1) mmol/L Chloride 110 H (98-107) mmol/L Carbon Dioxide 22 (22-30) mmol/L Anion Gap 9 mmol/L BUN 17 (7-17) mg/dL Creatinine 0.59 (0.52-1.04) mg/dL Est GFR (CKD-EPI)AfAm >90 (>60 ml/min/1.73 sqM) Est GFR (CKD-EPI)NonAf >90 (>60 ml/min/1.73 sqM) Glucose 125 H (74-99) mg/dL Plasma Lactic Acid Srinivasa (0.7-2.0) mmol/L Calcium 8.9 (8.4-10.2) mg/dL Total Bilirubin 0.6 (0.2-1.3) mg/dL AST 25 (14-36) U/L ALT 18 (9-52) U/L Alkaline Phosphatase 69 (38-126) U/L Total Protein 6.5 (6.3-8.2) g/dL Albumin 3.7 (3.5-5.0) g/dL Urine Color Urine Appearance (Clear) Urine pH (5.0-8.0) Ur Specific [place] (1.001-1.035) Urine Protein (Negative) Urine Glucose (UA) (Negative) Urine Ketones (Negative) Urine Blood (Negative) Urine Nitrite (Negative) Urine Bilirubin (Negative) Urine Urobilinogen (<2.0) mg/dL Ur Leukocyte Esterase (Negative) Urine RBC (0-5) /hpf Urine WBC (0-5) /hpf Ur Squamous Epith Cells (0-4) /hpf Urine Mucus (None) /hpf Disposition Clinical Impression: Abdominal pain, Ureteral calculi Disposition: HOME SELF-CARE Condition: Stable Instructions (If sedation given, give patient instructions): Kidney Stones (ED), Renal Colic (ED) Additional Instructions: Patient to adhere to previously discussed treatment plan and will take medication(s) as directed. Patient to follow up with PCP in 1-2 days. Patient to return to ED if symptoms do not improve. Take medication as directed. Follow-up with urologist. Return to ER if condition worsens. Prescriptions: traMADol HCl [Ultram] 50 mg PO Q6H PRN 3 Days #12 tab PRN Reason: Pain Is patient prescribed a controlled substance at d/c from ED?: Yes When asked, does pt state using other controlled substances?: No If prescribed controlled substance>3 days was MAPS reviewed?: Prescribed <3 Days If opioid is for acute pain is fill amount 7 days or less?: Yes If Rx opioid, was Start Talking consent form obtained?: Yes Referrals: Ayush Nicole MD [Family Provider] - 1-2 days Pat Angulo MD [Primary Care Provider] - 1-2 days
[2019-02-05 20:51] VITALS: BP 139/79; PULSE 77; RESP 20; TEMP 97
== END 2019-02-05 20:51 | disposition home or self-care (01) ==
LOC: EC 14:15
DX: N20.2 Calculus of kidney with calculus of ureter (principal); K57.30 Diverticulosis of large intestine without perforation or abscess without bleeding; K44.9 Diaphragmatic hernia without obstruction or gangrene; Z87.891 Personal history of nicotine dependence; Z88.0 Allergy status to penicillin; Z91.048 Other nonmedicinal substance allergy status; Z79.82 Long term (current) use of aspirin; Z79.84 Long term (current) use of oral hypoglycemic drugs; Z79.891 Long term (current) use of opiate analgesic; Z98.890 Other specified postprocedural states
CPT/HCPCS: 36415; 74018; 74176; 76770; 80053; 81001; 83605; 85025; 96360; 96361; 99284

== ENCOUNTER → 2019-07-28 | Outpatient (CLI) | payer MEDICARE, BC ==
--- NOTE | 2019-07-30 13:22 | MM ---
Reason for exam: screening (asymptomatic). Last mammogram was performed 1 year and 2 months ago. History: Patient is postmenopausal. Family history of premenopausal breast cancer in sister at age 40. Took hormonal contraceptives for 5 years. Physical Findings: A clinical breast exam by your physician is recommended on an annual basis and results should be correlated with mammographic findings. MG 3D Screening Mammo W/Cad Bilateral CC and MLO view(s) were taken. Prior study comparison: June 09, 2018, bilateral MG 3d screening mammo w/cad. December 20, 2016, bilateral MG 3d screening mammo w/cad. There are scattered fibroglandular densities. No significant changes when compared with prior studies. ASSESSMENT: Negative, BI-RAD 1 RECOMMENDATION: Routine screening mammogram of both breasts in 1 year.
== END | disposition home or self-care (01) ==
LOC: RADMAMWWP 14:03
PROVIDERS: ATTEND Internal Medicine
DX: Z12.31 Encounter for screening mammogram for malignant neoplasm of breast (principal)
CPT/HCPCS: 77063; 77067

== ENCOUNTER → 2019-12-07 | Outpatient (CLI) | payer MEDICARE, BC ==
--- NOTE | 2019-12-07 17:11 | XR ---
EXAMINATION TYPE: XR KUB DATE OF EXAM: 12/07/2019 COMPARISON: 02/05/2019 INDICATION: Renal calculus TECHNIQUE: Single view abdomen supine view FINDINGS: There is a normal bowel gas pattern. Psoas margins are normal. No organomegaly is present. 1.6 and 2.1 cm large calcifications may lie within the expected region of the right renal pelvis. Cou ple smaller calcifications may be more laterally. Stent is within the left iliac region. Degenerative lumbar spine changes are present. IMPRESSION: 1. Large renal pelvic region calcifications on the right.
== END | disposition home or self-care (01) ==
LOC: RADXRMAIN 11:46
PROVIDERS: ATTEND Urology
DX: N20.0 Calculus of kidney (principal)
CPT/HCPCS: 74018

== ENCOUNTER → 2019-12-07 | Outpatient (CLI) | payer MEDICARE, BC ==
[2019-12-07 13:35] LABS: Basophils % (A) 1 %; Eosinophils # (A) 0.4 k/uL (0-0.7); Eosinophils % (A) 7 %; HCT 46.8 % (34.0-46.0); HGB 14.5 gm/dL (11.4-16.0); Lymphocytes # (A) 1.5 k/uL (1.0-4.8); Lymphocytes % (A) 23 %; MCH 31.6 pg (25.0-35.0); MCHC 31.1 g/dL (31.0-37.0); MCV 101.5 fL (80.0-100.0); Monocytes # (A) 0.3 k/uL (0-1.0); Monocytes % (A) 5 %; Neutrophils # (A) 4.1 k/uL (1.3-7.7); Neutrophils % (A) 63 %; Platelet Count 196 k/uL (150-450); RBC 4.61 m/uL (3.80-5.40); RDW 12.3 % (11.5-15.5); WBC 6.6 k/uL (3.8-10.6)
[2019-12-07 18:44] LABS: African American GFR (CKD) 102.5 (60.0-200.0); Albumin 4.1 g/dL (3.80-4.90); Albumin/Globulin Ratio 1.78 (1.60-3.17); Anion Gap 8.5 mmol/L (4.00-12.00); BUN/Creat Ratio 22.86 Ratio (12.00-20.00); Calcium 9.4 mg/dL (8.7-10.3); Carbon Dioxide 27.5 mmol/L (21.6-31.8); Chol/HDL Ratio 3.73; Globulin 2.3 g/dL (1.6-3.3); LDL Cholesterol,Calculated 99.8 mg/dL (0.0-131.0); Non-African American GFR(CKD) 88.4 (60.0-200.0); Potassium 4.9 mmol/L (3.5-5.5); Total Bilirubin 0.8 mg/dL (0.3-1.2); Total Protein 6.4 g/dL (6.2-8.2); VLDL Calculation 34.2 mg/dL (5.00-40.00)
== END | disposition home or self-care (01) ==
LOC: LABWHC1 12:02
PROVIDERS: ATTEND Internal Medicine
DX: E78.2 Mixed hyperlipidemia (principal); E55.9 Vitamin D deficiency, unspecified; R53.83 Other fatigue; E11.65 Type 2 diabetes mellitus with hyperglycemia
CPT/HCPCS: 36415; 80053; 80061; 82306; 84443; 85025

== ENCOUNTER → 2020-01-06 | Outpatient (CLI) | payer MEDICARE, BC ==
[2020-01-06 15:23] LABS: Basophils # (A) 0.1 k/uL (0-0.2); Basophils % (A) 1 %; Eosinophils # (A) 0.4 k/uL (0-0.7); Eosinophils % (A) 4 %; HCT 47.4 % (34.0-46.0); HGB 14.9 gm/dL (11.4-16.0); Hypochromasia Slight; Lymphocytes # (A) 1.9 k/uL (1.0-4.8); Lymphocytes % (A) 23 %; MCH 32.4 pg (25.0-35.0); MCHC 31.6 g/dL (31.0-37.0); MCV 102.5 fL (80.0-100.0); Macrocytosis Slight; Monocytes # (A) 0.4 k/uL (0-1.0); Monocytes % (A) 5 %; Neutrophils # (A) 5.5 k/uL (1.3-7.7); Neutrophils % (A) 66 %; Platelet Count 213 k/uL (150-450); RBC 4.62 m/uL (3.80-5.40); RDW 12.3 % (11.5-15.5); WBC 8.4 k/uL (3.8-10.6)
[2020-01-06 15:32] LABS: African American GFR (CKD) >90 (>60 ml/min/1.73 sqM); Anion Gap 9 mmol/L; Blood Urea Nitrogen 19 mg/dL (7-17); Calcium 9.4 mg/dL (8.4-10.2); Carbon Dioxide 23 mmol/L (22-30); Chloride 106 mmol/L (98-107); Glucose 252 mg/dL (74-99); Non-African American GFR(CKD) >90 (>60 ml/min/1.73 sqM); Potassium 4.6 mmol/L (3.5-5.1); Sodium 138 mmol/L (137-145)
== END | disposition home or self-care (01) ==
LOC: LABPAT 14:47
PROVIDERS: ATTEND Urology
DX: Z01.810 Encounter for preprocedural cardiovascular examination (principal); Z01.818 Encounter for other preprocedural examination; N20.0 Calculus of kidney
CPT/HCPCS: 80048; 85025; 87086; 93005

== ENCOUNTER → 2020-01-13 | Day surgery (SDC) | payer MEDICARE, BC ==
[2020-01-07 13:22] VITALS: BMI 48.1
--- NOTE | 2020-01-10 06:47 | P.GSHP ---
History of Present Illness H&P Date: 12/26/19 Chief Complaint: Right flank pain The patient is a 69-year-old white female with a history of recurrent urolithiasis. A recent KUB x-ray shows 2 large right renal pelvic calcifications, measuring 16 and 21 mm in size. The patient was offered the options of extracorporal shockwave lithotripsy (ESWL), percutaneous nephrolithotomy (PCNL), and ureteroscopy with laser lithotripsy. The pros and cons of each were reviewed. ESWL was discouraged due to the large stone burden. PCNL is the favored treatment given the stone burden, but the patient prefers to undergo ureteroscopy with laser lithotripsy. She understands that multiple treatments are likely to be required. - Constitutional Constitutional: Denies chills, Denies fever - Gastrointestinal Gastrointestinal: Reports nausea - Genitourinary (Female) Genitourinary: Reports flank pain, Reports hematuria, Reports kidney stones Past Medical History Additional Past Medical History / Comment(s): kidney stones. blood clot in leg History of Any Multi-Drug Resistant Organisms: None Reported Past Surgical History: Hysterectomy, Orthopedic Surgery, Tubal Ligation Additional Past Surgical History / Comment(s): kidney stone removal Past Psychological History: No Psychological Hx Reported Past Alcohol Use History: None Reported Past Drug Use History: None Reported - Past Family History Mother Family Medical History: Cancer Father Family Medical History: Cancer Sister(s) Family Medical History: Cancer Additional Family Medical History / Comment(s): breast cancer Brother(s) Family Medical History: Cancer Daughter(s) Additional Family Medical History / Comment(s): daughter developed blood clot to shoulder and neck after IV insertion. granddaughter hx MTHFR with blood clot to groin Medications and Allergies Home Medications Medication Instructions Recorded Confirmed Type Acetaminophen [Tylenol 8 Hour] 650 mg PO Q8H 12/01/18 01/07/20 History Albuterol Sulfate [Proair Hfa] 2 puff INHALATION RT-Q6H PRN 12/01/18 01/07/20 History Aspirin EC [Ecotrin Low Dose] 81 mg PO BID 12/01/18 01/07/20 History Cholecalciferol [Vitamin D3 (25 2,000 unit PO BID 12/01/18 01/07/20 History Mcg = 1000 Iu)] metFORMIN HCL [Glucophage] 500 mg PO BID 12/01/18 01/07/20 History traMADol HCl [Ultram] 50 mg PO Q6H PRN 3 Days #12 tab 02/05/19 01/07/20 Rx Allergies Allergy/AdvReac Type Severity Reaction Status Date / Time amoxicillin Allergy Rash/Hives Verified 01/07/20 13:02 dill weed Allergy Rash/Hives Uncoded 01/07/20 13:02 Surgical - Exam - General well developed, well nourished, no distress - Respiratory normal respiratory effort, clear to auscultation - Cardiovascular Rhythm: regular Abnormal Heart Sounds: no systolic murmur, no diastolic murmur, no rub, no S3 Gallop, no S4 Gallop, no click, no other - Abdomen Abdomen: soft, non tender, no guarding, no rigid, no rebound - Psychiatric oriented to time, oriented to person, oriented to place, speech is normal, memory intact Results - Imaging Abdominal x-ray: report reviewed, image reviewed Assessment and Plan (1) Calculus of kidney Status: Acute Code(s): N20.0 - CALCULUS OF KIDNEY SNOMED Code(s): 14808177 Plan: Cystoscopy, right ureteroscopy with Holmium laser lithotripsy, right ureteral stent insertion. The procedure has been reviewed in detail with the patient and her . They have been made aware of potential risks, which include anesthesia, bleeding, infection, and ureteral injury. The planned approach will be to fragment the calculi as much as possible, likely utilizing a dusting technique. A ureteral stent will be placed, and a secondary procedure will be required to remove any residual calculus fragments.
[~2020-01-13] MED LIST: DEXAMETHASONE SOD PHOSPHATE 10 MG/ML 1 ML VIAL IV ONE; HYDROmorphone 0.5 MG/0.5 ML SYRINGE IVP PRN; INSULIN ASPART (NovoLOG) 100 UNIT/ML VIAL SQ ONE; LACTATED RINGERS 1,000 ML IV SCH; LEVOFLOXACIN 500MG-D5W PMX 500 MG in DEXTROSE/WATER 1 100ML.BAG IVPB ONE; LIDOCAINE 1% INJ 10MG/ML (20 ML MDV) ONE; MIDAZOLAM 2 MG/2 ML VIAL ONE; ONDANSETRON 4 MG/2 ML VIAL IVP ONE; ONDANSETRON 4 MG/2 ML VIAL ONE; PROPOFOL 10 MG/ML 20 ML VIAL IV ONE; SUCCINYLCHOLINE CHLORIDE 100 MG/5 ML SYR IV ONE; fentaNYL (PF) 50 MCG/ML 2 ML AMP ONE
--- NOTE | 2020-01-13 08:45 | XR ---
EXAMINATION TYPE: XR KUB DATE OF EXAM: 01/13/2020 COMPARISON: 12/07/2019 HISTORY: Preop TECHNIQUE: One view abdominal series FINDINGS: The osseous structures are intact. The bowel gas pattern is nonspecific. Vascular stent noted. Stabl e appearing pelvic calcifications. Arthropathy of the hips. Severe multilevel degenerative disc disea se. No definite radio metallic densities overlying the kidneys. Vague densities previously noted in o verlying the upper pole persist measuring 1.6 and 2.1 cm. IMPRESSION: 1. Stable vague densities overlying the right kidney likely related to renal calculi.
[2020-01-13 09:01] VITALS: RESP 16
[2020-01-13 09:14] LABS: Glucose,Whole Blood 184 mg/dL (75-99)
--- NOTE | 2020-01-13 12:34 | FL ---
EXAMINATION TYPE: FL guidance operating room DATE OF EXAM: 01/13/2020 HISTORY: Fluoroscopy time 11 seconds of fluoroscopy provided. IMPRESSION: 1. Fluoroscopy time.
[2020-01-13 12:38] VITALS: TEMP 98
--- NOTE | 2020-01-13 12:51 | P.OP ---
Date of Procedure: 01/13/20 Preoperative Diagnosis: Right renal calculi Postoperative Diagnosis: Same Procedure(s) Performed: Cystoscopy, right ureteroscopy with Holmium laser lithotripsy, right ureteral stent insertion Anesthesia: GETA Surgeon: Ayush Nicole Estimated Blood Loss (ml): 10 IV fluids (ml): 700 Pathology: none sent Condition: stable Disposition: PACU Indications for Procedure: The patient is a 69-year-old white female with a history of recurrent urolithiasis. A recent KUB x-ray shows 2 large right renal pelvic calcifications, measuring 16 and 21 mm in size. The patient was offered the options of extracorporal shockwave lithotripsy (ESWL), percutaneous nephroli thotomy (PCNL), and ureteroscopy with laser lithotripsy. The pros and cons of each were reviewed. ESWL was discouraged due to the large stone burden. PCNL is the favored treatment given the stone burden, but the patient prefers to undergo ureteroscopy with laser lithotripsy. She understands that multiple treatments are likely to be required. Operative Findings: Several right renal calculi, fragmented completely. Description of Procedure: The patient was taken to the operating room and placed in the dorsolithotomy position, with legs supported in Stephon stirrups. The external genitalia was prepped and draped sterilely. The 30 lens was used to introduce the 21-Dominican Higginbotham cystoscopic sheath through the urethra and into the bladder under direct vision. The bladder was examined in its entirety. Both ureteral orifices were normal anatomic location and configuration, and clear urine effluxed from both. No tumors or foreign bodies were seen. A 0.038 inch Glidewire was passed through the cystoscope. The right ureteral orifice was cannulated, and the Glidewire was advanced up to the right renal pelvis. An 11/13-Dominican ureteral access catheter was passed over the wire, up to the proximal ureter. The Boa flexible ureteroscope was passed through the ureteral access catheter sheath and up to the right renal pelvis, were several large calculi were seen in addition to multiple tiny calculi. The 272 micron Holmium laser probe was passed through the ureteroscope, and lithotripsy was performed using both fragmenting and dusting modes. This was done until there were no visible calculus fragments exceeding 2 mm in size, though visualization was quite limited due to a snowstorm effect. The Glidewire was passed through the ureteroscope, which was removed. The Glidewire was backloaded into the cystoscope, which was passed into the bladder. A 24 cm, 6-Dominican double-J ureteral stent was placed over the wire. Proper stent positioning was verified fluoroscopically and endoscopically. The bladder was emptied and the cystoscope removed. The patient tolerated the procedure well and was taken to the recovery room in stable condition. [facility] Report: Procedure Acuity: Elective Ureteral Dilation: No Ureteral Access Sheath Used: Yes Stone Sent for Analysis: Yes All Stones/Fragments Were Removed with a Basket: No Complications: No Preoperative Antibiotics Given: Yes Stent Placed: Yes If Stent Placed, Was String Left Attached: No If Stent Placed, When is it to be Removed: 3 weeks Discharge Medications: None
[2020-01-13 13:56] LABS: Glucose,Whole Blood 239 mg/dL (75-99)
[2020-01-13 14:38] VITALS: BP 139/87; PULSE 108
[2020-01-13 14:52] LABS: Glucose,Whole Blood 228 mg/dL (75-99)
== END | disposition home or self-care (01) ==
LOC: OR 08:22
PROVIDERS: ATTEND Urology
DX: N20.0 Calculus of kidney (principal); Z87.442 Personal history of urinary calculi; F41.9 Anxiety disorder, unspecified; E11.9 Type 2 diabetes mellitus without complications; E66.01 Morbid (severe) obesity due to excess calories; I82.409 Acute embolism and thrombosis of unspecified deep veins of unspecified lower extremity; H35.30 Unspecified macular degeneration; J30.2 Other seasonal allergic rhinitis; Z88.0 Allergy status to penicillin; Z91.09 Other allergy status, other than to drugs and biological substances; Z88.6 Allergy status to analgesic agent; Z79.84 Long term (current) use of oral hypoglycemic drugs; Z79.891 Long term (current) use of opiate analgesic; Z79.82 Long term (current) use of aspirin; Z79.899 Other long term (current) drug therapy; Z90.710 Acquired absence of both cervix and uterus; Z98.51 Tubal ligation status; Z98.890 Other specified postprocedural states; Z80.3 Family history of malignant neoplasm of breast; Z80.9 Family history of malignant neoplasm, unspecified; Z68.42 Body mass index [BMI] 45.0-49.9, adult
CPT/HCPCS: 52356; 74018; C2625; C1769; J2250; J1100; J2405; J1956; J2001; J3010; J0330; J2704

== ENCOUNTER 2020-01-27 08:59 | Day surgery (SDC) | payer MEDICARE, BC ==
--- NOTE | 2020-01-22 17:30 | P.GSHP ---
History of Present Illness H&P Date: 01/22/20 Chief Complaint: Right flank pain The patient is a 69-year-old white female with a history of recurrent urolithiasis. A recent KUB x-ray shows 2 large right renal pelvic calcifications, measuring 16 and 21 mm in size. The patient was offered the options of extracorporal shockwave lithotripsy (ESWL), percutaneous nephrolithotomy (PCNL), and ureteroscopy with laser lithotripsy. The pros and cons of each were reviewed. She underwent ureteroscopy with laser lithotripsy, and both calculi were fragmented. A ureteral stent was placed. She now returns for stent removal, and ureteroscopy will be performed to treat any residual fragments. - Constitutional Constitutional: Denies chills, Denies fever - Gastrointestinal Gastrointestinal: Reports nausea - Genitourinary (Female) Genitourinary: Reports flank pain, Reports hematuria Past Medical History Past Medical History: Diabetes Mellitus, Deep Vein Thrombosis (DVT), Pneumonia Additional Past Medical History / Comment(s): kidney stones. blood clot in leg History of Any Multi-Drug Resistant Organisms: None Reported Past Surgical History: Hysterectomy, Orthopedic Surgery, Tubal Ligation Additional Past Surgical History / Comment(s): kidney stone removal Past Anesthesia/Blood Transfusion Reactions: Previous Problems w/ Anesthesia Additional Past Anesthesia/Blood Transfusion Reaction / Comment(s): difficulty with breathing when waking up from previous kidney stone surgery Past Psychological History: No Psychological Hx Reported - Past Family History Mother Family Medical History: Cancer Father Family Medical History: Cancer Sister(s) Family Medical History: Cancer Additional Family Medical History / Comment(s): breast cancer Brother(s) Family Medical History: Cancer Daughter(s) Additional Family Medical History / Comment(s): daughter developed blood clot to shoulder and neck after IV insertion. granddaughter hx MTHFR with blood clot to groin Medications and Allergies Home Medications Medication Instructions Recorded Confirmed Type Acetaminophen [Tylenol 8 Hour] 650 mg PO Q8H 12/01/18 01/13/20 History Albuterol Sulfate [Proair Hfa] 2 puff INHALATION RT-Q6H PRN 12/01/18 01/13/20 History Aspirin EC [Ecotrin Low Dose] 81 mg PO BID 12/01/18 01/13/20 History Cholecalciferol [Vitamin D3 (25 2,000 unit PO BID 12/01/18 01/13/20 History Mcg = 1000 Iu)] metFORMIN HCL [Glucophage] 500 mg PO BID 12/01/18 01/13/20 History traMADol HCl [Ultram] 50 mg PO Q6H PRN 3 Days #12 tab 02/05/19 01/13/20 Rx Allergies Allergy/AdvReac Type Severity Reaction Status Date / Time amoxicillin Allergy Rash/Hives Verified 01/13/20 08:54 dill weed Allergy Rash/Hives Uncoded 01/13/20 08:54 Surgical - Exam - General well developed, well nourished, no distress - Respiratory normal respiratory effort, clear to auscultation - Cardiovascular Rhythm: regular Abnormal Heart Sounds: no systolic murmur, no diastolic murmur, no rub, no S3 Gallop, no S4 Gallop, no click, no other - Abdomen Abdomen: soft, non tender, no guarding, no rigid, no rebound - Psychiatric oriented to time, oriented to person, oriented to place, speech is normal, memory intact Assessment and Plan (1) Calculus of kidney Status: Acute Code(s): N20.0 - CALCULUS OF KIDNEY SNOMED Code(s): 50295082 Plan: Cystoscopy, right ureteral stent removal, right ureteroscopy. If there are any remaining calculus fragments, these will be treated with laser lithotripsy and/or stone basketing.
[2020-01-24 09:26] VITALS: BMI 47.9
[~2020-01-27 08:59] MED LIST changes: -INSULIN ASPART (NovoLOG) 100 UNIT/ML VIAL SQ ONE; -LACTATED RINGERS 1,000 ML IV SCH; -LIDOCAINE 1% INJ 10MG/ML (20 ML MDV) ONE; -MIDAZOLAM 2 MG/2 ML VIAL ONE; -ONDANSETRON 4 MG/2 ML VIAL ONE; -PROPOFOL 10 MG/ML 20 ML VIAL IV ONE; -SUCCINYLCHOLINE CHLORIDE 100 MG/5 ML SYR IV ONE; -fentaNYL (PF) 50 MCG/ML 2 ML AMP ONE
--- NOTE | 2020-01-27 09:16 | XR ---
EXAMINATION TYPE: XR KUB DATE OF EXAM: 01/27/2020 Comparison: 01/13/2020 Clinical History: 69 year-old female right-sided stone eval Findings: Right ureteral stent is present. There is a vague 1.1 cm round density projecting at the lower pole o f the right kidney. Left iliac vessel stent. Phleboliths in the pelvis. Degenerative changes mid to l ower lumbar spine. Nonobstructive bowel gas pattern. Impression: Right ureteral stent. Suspect a 1.1 cm right lower pole renal calculus. Calcifications in the pelvis probably phleboliths.
[2020-01-27 09:44] VITALS: TEMP 97.2
[2020-01-27] MEDS ORDERED: LIDOCAINE 1% (10MG/ML) FOR IV START INTRADERMA ONE (10:00)
[2020-01-27] MEDS: LACTATED RINGERS 1,000 ML IV SCH ×2 (10:00→10:49)
[2020-01-27 10:07] LABS: Glucose,Whole Blood 183 mg/dL (75-99)
[2020-01-27] MEDS ORDERED: fentaNYL (PF) 50 MCG/ML 2 ML AMP ONE (10:47)
[2020-01-27] MEDS ORDERED: LIDOCAINE 1% INJ 10MG/ML (20 ML MDV) ONE (10:47)
[2020-01-27] MEDS ORDERED: SUCCINYLCHOLINE CHLORIDE 100 MG/5 ML SYR IV ONE (10:47)
[2020-01-27] MEDS ORDERED: MIDAZOLAM 2 MG/2 ML VIAL ONE (10:47)
[2020-01-27] MEDS ORDERED: PROPOFOL 10 MG/ML 20 ML VIAL IV ONE (10:47)
--- NOTE | 2020-01-27 12:28 | P.OP ---
Date of Procedure: 01/27/20 Preoperative Diagnosis: Right renal calculi Postoperative Diagnosis: Same Procedure(s) Performed: Cystoscopy, right ureteroscopy with Holmium laser lithotripsy and stone basketing, right ureteral stent change Anesthesia: VAZQUEZA Surgeon: Ayush Nicole Estimated Blood Loss (ml): 0 IV fluids (ml): 600 Pathology: none sent Condition: stable Disposition: PACU Indications for Procedure: The patient is a 69-year-old white female with a history of recurrent urol ithiasis. A recent KUB x-ray shows 2 large right renal pelvic calcifications, measuring 16 and 21 mm in size. The patient was offered the options of extracorporal shockwave lithotripsy (ESWL), percutaneous nephrolithotomy (PCNL), and ureteroscopy with laser lithotripsy. The pros and cons of each were reviewed. She underwent ureteroscopy with laser lithotripsy, and both calculi were fragmented. A ureteral stent was placed. She now returns for stent removal, and ureteroscopy will be performed to treat any residual fragments. Operative Findings: Large right renal pelvic calculus, fragmented completely. Description of Procedure: The patient was taken to the operating room and placed in the dorsolithotomy position, with legs supported in Stephon stirrups. The external genitalia was prepped and draped sterilely. The 30 lens was used to introduce the 21-Hebrew Higginbotham cystoscopic sheath through the urethra and into the bladder under direct vision. The bladder was examined in its entirety. Both ureteral orifices were normal anatomic location and configuration. No tumors or foreign bodies were seen. Grasping forceps were used to grasp the distal end of the right ureteral stent, which was withdrawn. The Higginbotham Boa flexible ureteroscope was advanced into the bladder, and the right ureteral orifice was cannulated. The uret eroscope was slowly advanced under direct vision up to the right renal pelvis. A large calculus was seen. The 272 micron Holmium laser probe was passed through the ureteroscope, and lithotripsy was performed using a dusting mode. The calculus fragmented well. Once the majority of the calculus had been dusted, the residual fragments were treated using a fragmenting mode, until there were no residual calculus fragments exceeding 1-2 mm in size. Within an upper pole calyx, several small round calculi were seen. Lithotripsy was performed, but the calculi simply rolled away. An attempt was made to pin the calculi within the calyx, but this was unsuccessful. Therefore, a 1.9 Hebrew nitinol basket was used to grasp these calculi. However, it proved to be so small that they could not be grasped. After ensuring that there were no residual calculus fragments too large to pass, the ureteroscope was slowly withdrawn under direct vision. The cystoscope was reintroduced into the bladder. A 0.035 inch Glidewire was passed through the cystoscope. The right ureteral orifice was cannulated, and the Glidewire was advanced up to the right renal pelvis. A 22 cm, 6-Hebrew double-J ureteral stent was placed over the wire. Proper stent positioning was verified fluoroscopically and endoscopically. The bladder was emptied and the cystoscope removed. The patient tolerated the procedure well and was taken to the recovery room in stable condition. [facility] Report: Procedure Acuity: Elective Stone Size and Location: 15 mm, right renal pelvis Ureteral Dilation: No Ureteral Access Sheath Used: No Stone Sent for Analysis: No All Stones/Fragments Were Removed with a Basket: No Complications: No Preoperative Antibiotics Given: Yes Stent Placed: Yes If Stent Placed, Was String Left Attached: No If Stent Placed, When is it to be Removed: 2 weeks Discharge Medications: None
[2020-01-27 12:59] VITALS: RESP 16
[2020-01-27 14:06] VITALS: BP 148/82; PULSE 99
--- NOTE | 2020-01-27 14:58 | FL ---
EXAMINATION TYPE: FL guidance operating room DATE OF EXAM: 01/27/2020 FLUOROSCOPY Fluoroscopy time of 10 seconds was used during right-sided lithotripsy. 2 image/s document/s the pro cedure.
== END 2020-01-27 14:12 | disposition home or self-care (01) ==
LOC: OR 08:59
PROVIDERS: ATTEND Urology
DX: N20.0 Calculus of kidney (principal); E66.01 Morbid (severe) obesity due to excess calories; E11.9 Type 2 diabetes mellitus without complications; Z88.0 Allergy status to penicillin; Z88.6 Allergy status to analgesic agent; Z79.82 Long term (current) use of aspirin; Z79.891 Long term (current) use of opiate analgesic; Z79.84 Long term (current) use of oral hypoglycemic drugs; Z79.899 Other long term (current) drug therapy; Z87.442 Personal history of urinary calculi; Z90.710 Acquired absence of both cervix and uterus; Z98.51 Tubal ligation status; Z91.09 Other allergy status, other than to drugs and biological substances; Z68.42 Body mass index [BMI] 45.0-49.9, adult
CPT/HCPCS: 52356; 74018; C1769; C1758; J2250; J1100; J2405; J1956; J2001; J3010; J0330; J2704

== ENCOUNTER → 2020-07-06 | Outpatient (CLI) | payer MEDICARE, BC ==
[2020-07-06 19:18] LABS: Basophils # (A) 0.04 X 10*3/uL (0.00-0.10); Basophils % (A) 0.6 %; Eosinophils # (A) 0.49 X 10*3/uL (0.04-0.35); Eosinophils % (A) 7.5 %; HCT 45.9 % (37.2-46.3); HGB 14.2 g/dL (12.0-15.0); Lymphocytes # (A) 1.51 X 10*3/uL (0.90-5.00); Lymphocytes % (A) 23.2 %; MCH 32.1 pg (27.0-32.0); MCHC 30.9 g/dL (32.0-37.0); MCV 103.6 fL (80.0-97.0); Mean Platelet Volume 11.8 fL (9.5-12.2); Monocytes # (A) 0.37 X 10*3/uL (0.20-1.00); Monocytes % (A) 5.7 %; Neutrophils # (A) 4.08 X 10*3/uL (1.80-7.70); Neutrophils % (A) 62.5 %; Platelet Count 193 X 10*3/uL (140-440); RBC 4.43 X 10*6/uL (4.10-5.20); RDW 12.1 % (11.5-14.5); WBC 6.52 X 10*3/uL (4.50-10.00)
[2020-07-06 20:03] LABS: African American GFR (CKD) 86.6 (60.0-200.0); Albumin 4.4 g/dL (3.80-4.90); Albumin/Globulin Ratio 2.32 (1.60-3.17); Calcium 9.2 mg/dL (8.7-10.3); Chol/HDL Ratio 4.11; Globulin 1.9 g/dL (1.6-3.3); Non-African American GFR(CKD) 74.7 (60.0-200.0); Potassium 4.7 mmol/L (3.5-5.5); Total Bilirubin 0.7 mg/dL (0.2-1.2); Total Protein 6.3 g/dL (6.2-8.2)
[2020-07-06 21:42] LABS: Hemoglobin A1C 7.9 % (4.0-6.0)
== END | disposition home or self-care (01) ==
LOC: LABWHC1 12:11
PROVIDERS: ATTEND Internal Medicine
DX: E11.65 Type 2 diabetes mellitus with hyperglycemia (principal); E55.9 Vitamin D deficiency, unspecified; E78.2 Mixed hyperlipidemia; R53.83 Other fatigue
CPT/HCPCS: 36415; 80053; 80061; 82306; 83036; 85025

== ENCOUNTER → 2020-07-06 | Outpatient (CLI) | payer MEDICARE, BC ==
--- NOTE | 2020-07-06 13:42 | US ---
EXAMINATION TYPE: US kidneys/renal and bladder DATE OF EXAM: 07/06/2020 COMPARISON: NONE CLINICAL HISTORY: N20.0 Calculus of kidney. lithotripsy 3 months ago on the right due to large stone, h/o multiple renal stones, large body habitus, came in wheelchair with limited mobility. EXAM MEASUREMENTS: Right Kidney: 11.1 x 6.9 x 6.7 cm Left Kidney: 10.4 x 4.7 x 6.6 cm Right Kidney: anechoic area within renal 7.2 x 5.5cm may represent cyst noted on previous CT, 1.4cm e chogenic area that my represent remanent stone, limited images of right renal due to habitus . There is some hypoechoic area adjacent to the renal stone which could be hydronephrosis. This is limited ho wever due to visualization through this region. Left Kidney: limited views appear wnl Bladder: wnl Bilateral Jets seen: left IMPRESSION: 1. Right renal cyst. 2. Right renal stone with hydronephrosis.. Visualization however is limited.
--- NOTE | 2020-07-06 21:08 | XR ---
EXAMINATION TYPE: XR KUB DATE OF EXAM: 07/06/2020 COMPARISON: 01/27/2020 INDICATION: History of kidney stones TECHNIQUE: Single view abdomen supine view FINDINGS: There is a normal bowel gas pattern. Psoas margins are normal. No organomegaly is present. There is a 0.9 cm calcification at the inferior pole right kidney. This is smaller than 1.1 cm previo us. Previous ureteral stent is been removed. Phleboliths remain within the pelvis common iliac stent is present IMPRESSION: 1. A 0.9 cm renal stone at the inferior pole right kidney. This is smaller than the 1.1 cm previous.
== END | disposition home or self-care (01) ==
LOC: RADUSWWP 12:14
PROVIDERS: ATTEND Urology
DX: N28.1 Cyst of kidney, acquired (principal); N13.2 Hydronephrosis with renal and ureteral calculous obstruction
CPT/HCPCS: 74018; 76770

== ENCOUNTER 2021-01-04 06:11 | Day surgery (SDC) | payer MEDICARE, BC ==
[2021-01-01 17:40] VITALS: BMI 48.1
--- NOTE | 2021-01-03 22:08 | P.GSHP ---
History of Present Illness H&P Date: 01/03/21 Chief Complaint: Right flank pain The patient is a 70-year-old white female with a history of recurrent urolithiasis. She was found last year to have 2 large right renal pelvic calcifications, measuring 16 and 21 mm in size. The patient was offered the options of extracorporal shockwave lithotripsy (ESWL), percutaneous nephrolithotomy (PCNL), and ureteroscopy with laser lithotripsy. She underwent 2 ureteroscopic procedures with laser lithotripsy and presents back with occasional right flank discomfort. KUB x-ray shows a 9 mm right renal calculus, and ultrasound shows mild right hydronephrosis. She now comes for ureteroscopic removal of the calculus. - Constitutional Constitutional: Denies chills, Denies fever - Gastrointestinal Gastrointestinal: Reports nausea, Reports vomiting - Genitourinary (Female) Genitourinary: Reports flank pain, Reports kidney stones, Denies hematuria Past Medical History Past Medical History: Diabetes Mellitus, Deep Vein Thrombosis (DVT), Eye Disorder, Osteoarthritis (OA), Pneumonia Additional Past Medical History / Comment(s): Seasonal allergies, recent congestions and also bladder infection, finishing po AB Rx. Macular degeneration, Rt eye worse. Edema in legs, hx water blisters, wears jobst stockings. kidney stones. Hx blood clot in leg History of Any Multi-Drug Resistant Organisms: None Reported Past Surgical History: Hysterectomy, Tubal Ligation Additional Past Surgical History / Comment(s): Multiple Kidney stone removals, LITHOTRIPSY. Blood clot removal left thigh, placed stent lt groin 2012 est. Past Anesthesia/Blood Transfusion Reactions: Previous Problems w/ Anesthesia Additional Past Anesthesia/Blood Transfusion Reaction / Comment(s): difficulty with breathing when waking up from previous kidney stone surgery x1 Smoking Status: Former smoker - Past Family History Mother Family Medical History: Cancer Additional Family Medical History / Comment(s): colon cancer Father Family Medical History: Cancer Additional Family Medical History / Comment(s): lung cancer Sister(s) Family Medical History: Cancer Additional Family Medical History / Comment(s): breast cancer Brother(s) Family Medical History: Cancer, Pulmonary Embolus Daughter(s) Additional Family Medical History / Comment(s): daughter developed blood clot to shoulder and neck after IV PICC line insertion. granddaughter hx MTHFR with blood clot to groin Medications and Allergies Home Medications Medication Instructions Recorded Confirmed Type Acetaminophen [Tylenol 8 Hour] 650 mg PO Q8H PRN 12/01/18 01/01/21 History Albuterol Sulfate [Proair Hfa] 2 puff INHALATION RT-Q6H PRN 12/01/18 01/01/21 H istory Aspirin EC [Ecotrin Low Dose] 81 mg PO BID 12/01/18 01/01/21 History Cholecalciferol [Vitamin D3 (25 2,000 unit PO BID 12/01/18 01/01/21 History Mcg = 1000 Iu)] metFORMIN HCL [Glucophage] 500 mg PO BID 12/01/18 01/01/21 History traMADol HCl [Ultram] 50 mg PO Q6H PRN 3 Days #12 tab 02/05/19 01/01/21 Rx Levofloxacin [Levaquin] 500 mg PO DAILY 01/01/21 01/01/21 History Allergies Allergy/AdvReac Type Severity Reaction Status Date / Time amoxicillin Allergy Rash/Hives Verified 01/01/21 17:08 dill weed Allergy Rash/Hives Uncoded 01/01/21 17:08 Surgical - Exam - General well developed, well nourished, no distress - Respiratory normal respiratory effort - Abdomen Abdomen: soft, non tender, no guarding, no rigid, no rebound - Psychiatric oriented to time, oriented to person, oriented to place, speech is normal, memory intact Results - Imaging CT scan - abdomen: report reviewed, image reviewed Assessment and Plan (1) Calculus of kidney Status: Acute Code(s): N20.0 - CALCULUS OF KIDNEY SNOMED Code(s): 19690062 Plan: Cystoscopy, right ureteroscopy with Holmium laser lithotripsy and possible stone basketing, right ureteral stent insertion. The procedure then reviewed in detail with the patient and her . They understand potential risks to include anesthesia, bleeding, infection, and ureteral injury.
[~2021-01-04 06:11] MED LIST changes: -DEXAMETHASONE SOD PHOSPHATE 10 MG/ML 1 ML VIAL IV ONE; +DEXAMETHASONE SOD PHOSPHATE 4 MG/ML 1 ML VIAL IV ONE; +LACTATED RINGERS 1,000 ML IV SCH; -LEVOFLOXACIN 500MG-D5W PMX 500 MG in DEXTROSE/WATER 1 100ML.BAG IVPB ONE; +LEVOFLOXACIN 500MG-D5W PMX 500 MG in DEXTROSE/WATER 1 100ML.BAG IVPB PRN
--- NOTE | 2021-01-04 06:34 | XR ---
EXAMINATION TYPE: XR KUB DATE OF EXAM: 01/04/2021 COMPARISON: 07/06/2020 HISTORY: Renal calculus. Preop TECHNIQUE: Single view FINDINGS: The bowel gas pattern is normal. There is no sign of intestinal obstruction or pneumoperito neum. Fecal pattern is normal. There is moderate spondylotic change in the lower lumbar spine. There is stent in the left iliac vein. There are some faint calcifications over both kidneys at the lower p oles. IMPRESSION: Bilateral renal calculi. No sign of an acute abdomen. Renal calculi not well seen. Calcul i probably increased compared to old exam.
[2021-01-04 06:58] VITALS: TEMP 98.6
[2021-01-04] MEDS ORDERED: LIDOCAINE 1% (10MG/ML) FOR IV START INTRADERMA ONE (07:09)
[2021-01-04 07:10] LABS: Glucose,Whole Blood 171 mg/dL (75-99)
[2021-01-04] MEDS ORDERED: ROCURONIUM 10 MG/ML (5 ML VIAL) IV ONE (07:25)
[2021-01-04] MEDS ORDERED: PHENYLEPHRINE-0.9% NACL SYG 1,000 MCG/10 ML SYRINGE ONE (07:25)
[2021-01-04] MEDS ORDERED: MIDAZOLAM 2 MG/2 ML VIAL ONE (07:25)
[2021-01-04] MEDS ORDERED: GLYCOPYRROLATE 0.2 MG/ML 2 ML VIAL ONE (07:25)
[2021-01-04] MEDS ORDERED: LIDOCAINE 1% INJ 10MG/ML (20 ML MDV) ONE (07:25)
[2021-01-04] MEDS ORDERED: NEOSTIGMINE 1 MG/ML 10 ML VIAL ONE (07:25)
[2021-01-04] MEDS ORDERED: SUCCINYLCHOLINE CHLORIDE 100 MG/5 ML SYR IV ONE (07:25)
[2021-01-04] MEDS ORDERED: PROPOFOL 10 MG/ML 20 ML VIAL IV ONE (07:25)
[2021-01-04] MEDS ORDERED: fentaNYL (PF) 50 MCG/ML 2 ML AMP ONE (07:25)
[2021-01-04] MEDS ORDERED: IOPAMIDOL-370 50ML BTL IRRIGATION ONE (07:58)
--- NOTE | 2021-01-04 09:02 | FL ---
EXAMINATION TYPE: FL urography retrograde DATE OF EXAM: 01/04/2021 FLUOROSCOPY Fluoroscopy time of 28 seconds was used during right kidney stone lithotripsy. 2 image/s document/s the procedure.
--- NOTE | 2021-01-04 09:18 | P.OP ---
Date of Procedure: 01/04/21 Preoperative Diagnosis: Right renal calculi Postoperative Diagnosis: Same Procedure(s) Performed: Cystoscopy, right retrograde pyelogram, right ureteroscopy with Holmium laser lithotripsy, right ureteral stent insertion Anesthesia: VAZQUEZA Surgeon: Ayush Nicole Estimated Blood Loss (ml): 0 IV fluids (ml): 300 Pathology: none sent Condition: stable Disposition: PACU Indications for Procedure: The patient is a 70-year-old white female with a history of recurrent urolithiasis. She was found last year to have 2 large right renal pelvic calcifications, measuring 16 and 21 mm in size. The patient was offered the options of extracorporal shockwave lithotripsy (ESWL), percutaneous nephrolithotomy (PCNL), and ureteroscopy with laser lithotripsy. She underwent 2 ureteroscopic procedures with laser lithotripsy and presents back with occasional right flank discomfort. KUB x-ray shows a 9 mm right renal calculus, and ultrasound shows mild right hydronephrosis. She now comes for ureteroscopic removal of the calculus. Operative Findings: Multiple small, round calculi within 3 separate calyces, all fragmented completely. Description of Procedure: The patient was taken to the operating room and placed in the dorsolithotomy position, with legs supported in Stephon stirrups. The external genitalia was prepped and draped sterilely. The 30 lens was used to introduce the 21-Slovak Higginbotham cystoscopic sheath through the urethra and into the bladder under direct vision. The bladder was examined in its entirety. Both ureteral orifices were normal anatomic location and configuration, and clear urine effluxed from both. No tumors or foreign bodies were seen. Using a 10-Slovak cone-tipped catheter, a right retrograde pyelogram was performed. The entire course of the ureter was seen on fluoroscopy. No filling defects were seen, and there was no evidence of obstruction as the ureter was normal in caliber. The right renal pelvis opacified incompletely. A 0.038 inch Glidewire was passed through the cystoscope. The right ureteral orifice was cannulated, and the Glidewire was advanced up to the right renal pelvis. The cystoscope was removed, and an 11/13-Slovak ureteral access catheter was passed over the wire, up to the proximal ureter. The flexible ureteroscope was then passed through the ureteral access catheter sheath and advanced under direct vision into the right renal pelvis. Each calyx was examined. Within 3 separate calyces, 2 lower pole and 1 mid pole, were multiple small, round calculi measuring up to 5 mm. The 272 micron Holmium laser probe was passed through the ureteroscope, and lithotripsy was performed with in each of the involved calyces using a popcorning method. This resulted in dusting of the calculi, leaving no residual calculus fragments exceeding 1 mm. Pullout ureteroscopy was performed, revealing no evidence of ureteral trauma. The cystoscope was passed into the bladder, and the Glidewire was advanced up to the right renal pelvis. A 24 cm, 4.8-Slovak double-J ureteral stent was placed over the wire. Proper stent positioning was verified fluoroscopically and endoscopically. The bladder was emptied and the cystoscope removed. The patient tolerated the procedure well and was taken to the recovery room in stable condition. [facility] Report: Procedure Acuity: Elective Stone Size and Location: Multiple right renal calculi measuring up to 5 mm Ureteral Dilation: No Ureteral Access Sheath Used: Yes Stone Sent for Analysis: No All Stones/Fragments Were Removed with a Basket: No Complications: No Preoperative Antibiotics Given: Yes Stent Placed: Yes If Stent Placed, Was String Left Attached: No If Stent Placed, When is it to be Removed: 2 weeks Discharge Medications: None
[2021-01-04 10:22] VITALS: BP 137/77; PULSE 90; RESP 18
== END 2021-01-04 10:51 | disposition home or self-care (01) ==
LOC: OR 06:11
PROVIDERS: ATTEND Urology
DX: N13.2 Hydronephrosis with renal and ureteral calculous obstruction (principal); Z87.442 Personal history of urinary calculi
CPT/HCPCS: 52356; 74420; 74018; C1758; C1769; C1894; J2250; J1100; J2710; J2405; J1956; J2001; J3010; J2370; J0330; J2704; Q9967

== ENCOUNTER → 2021-02-27 | Outpatient (CLI) | payer MEDICARE, BC ==
--- NOTE | 2021-02-28 08:11 | XR ---
EXAMINATION TYPE: XR KUB DATE OF EXAM: 02/27/2021 COMPARISON: 01/04/2021 INDICATION: Renal calculus TECHNIQUE: Single view abdomen frontal projection FINDINGS: There is a normal bowel gas pattern. Psoas margins are normal. No organomegaly is present. Phleboliths appear to be within the pelvis. There is iliac stent on the left. Scoliosis and degenerat veronica disc changes are within the lumbar spine. There may be a couple of faint calcifications over the inferior pole left kidney measuring 0.6 and 0.7 cm. No suspicious calcifications are otherwise ident ified. IMPRESSION: 1. May be a couple of calcifications over the inferior pole left kidney. 2. Abdomen is otherwise unremarkable
--- NOTE | 2021-02-28 08:11 | US ---
EXAMINATION TYPE: US kidneys/renal and bladder DATE OF EXAM: 02/27/2021 COMPARISON: Most recent ultrasound July 06, 2010. CLINICAL HISTORY: N20.0 Calculus of Kidney. Post lithotripsy EXAM MEASUREMENTS: Right Kidney: 13.7 x 5.7 x 5.7 cm Left Kidney: 10.0 x 5.2 x 5.7 cm Morbidly obese patient, technically difficult limited study. Right Kidney: cyst measuring 6.7 x 6.6 x 5.6cm, possible echogenic foci seen mid, measures large Left Kidney: cyst measuring 1.9 x 1.8 x 2.1cm Bladder: wnl Exam is suboptimal due to patient's large body habitus particularly for nonobstructing calculi. Large exophytic thin-walled cyst with lobulated contour upper pole level right kidney is redemonstrated. N o obvious hydronephrosis. Bladder not greatly distended. No left-sided hydronephrosis. Roughly 2.0 cm thin-walled cyst upper pole level left kidney noted towards end of study. IMPRESSION: Suboptimal study. No obvious hydronephrosis after recent lithotripsy.
== END | disposition home or self-care (01) ==
LOC: RADUSWWP 15:03
PROVIDERS: ATTEND Urology
DX: N20.0 Calculus of kidney (principal)
CPT/HCPCS: 74018; 76770

== ENCOUNTER → 2021-03-28 | Outpatient (CLI) | payer MEDICARE, BC ==
[2021-03-28 13:48] LABS: HCT 45.3 % (34.0-46.0); HGB 14.9 gm/dL (11.4-16.0); MCH 33.3 pg (25.0-35.0); Macrocytosis Slight; Mean Platelet Volume 9.3; Platelet Count 177 k/uL (150-450); RBC 4.48 m/uL (3.80-5.40); RDW 13.1 % (11.5-15.5); WBC 6.9 k/uL (3.8-10.6)
[2021-03-28 14:09] LABS: ALT 13 U/L (4-34); AST 21 U/L (14-36); African American GFR (CKD) >90 (>60 ml/min/1.73 sqM); Albumin 4.1 g/dL (3.5-5.0); Albumin/Globulin Ratio 1.4; Alkaline Phosphatase 81 U/L (38-126); Anion Gap 7 mmol/L; Blood Urea Nitrogen 18 mg/dL (7-17); Calcium 9.6 mg/dL (8.4-10.2); Carbon Dioxide 28 mmol/L (22-30); Chloride 103 mmol/L (98-107); Glucose 146 mg/dL (74-99); Non-African American GFR(CKD) >90 (>60 ml/min/1.73 sqM); Potassium 5.2 mmol/L (3.5-5.1); Sodium 138 mmol/L (137-145); Total Bilirubin 0.7 mg/dL (0.2-1.3); Total Protein 7.1 g/dL (6.3-8.2)
[2021-03-29 02:26] LABS: Chol/HDL Ratio 3.47 Ratio
--- NOTE | 2021-03-29 16:19 | BD ---
EXAMINATION TYPE: Axial Bone Density DATE OF EXAM: 03/28/2021 COMPARISON: NONE CLINICAL HISTORY: Postmenopausal screening Height: 64 Weight: 291.0 FRAX RISK QUESTIONS: Alcohol (3 or more units per day): no Family History (Parent hip fracture): no Glucocorticoids (More than 3mos): no (Ex: prednisone, prednisolone, methylprednisolone, dexamethasone, and hydrocortisone). History of Fracture in Adulthood: no Secondary Osteoporosis: 1. Type 1 Diabetes: no 2. Hyperthyroidism: no 3. Menopause before 45: yes 4. Malnutrition: no 5. Chronic liver disease: no Rheumatoid Arthritis: no Current Tobacco Use: no RISK FACTORS HISTORY OF: Surgery to Spine/Hip(right/left)/Wrist (right/left): no Family History of Osteoporosis: no Active: yes Diet low in dairy products/other sources of calcium: no Postmenopausal woman: yes Lost more than 2 inches in height since high school: no Medication: tramadol as needed, aspirin, vit d3, Tylenol, metformin Additional History: EXAM MEASUREMENTS: Bone mineral densitometry was performed using the [employer] System. Bone mineral density as measured about the Lumbar spine is: ----- L1-L4(G/cm2): 1.493 T Score Values are as follows: ----- L2: 1.6 ----- L3: 4.1 ----- L4: 5.2 ----- L1-L4: 2.6 Bone mineral density : baseline Bone mineral density about the R hip (g/cm2): 0.852 Bone mineral density about the L hip (g/cm2): 0.857 T Score values are as follows: -----R Neck: -1.3 -----L Neck: -1.3 -----R Total: -0.8 -----L Total: -0.7 Bone mineral density : baseline IMPRESSION: Osteopenia (T Score between -2.5 and -1). There is slightly increased risk of fracture and the patient may be considered for treatment. Re-Screen 2-5 years. NOTE: T-SCORE=SD OF THE YOUNG ADULT MEAN.
--- NOTE | 2021-03-30 14:25 | MM ---
Reason for exam: screening (asymptomatic). Last mammogram was performed 1 year and 8 months ago. History: Patient is postmenopausal. Family history of premenopausal breast cancer in sister at age 40. Took hormonal contraceptives for 5 years. Physical Findings: A clinical breast exam by your physician is recommended on an annual basis and results should be correlated with mammographic findings. MG 3D Screening Mammo W/Cad Bilateral CC and MLO view(s) were taken. Prior study comparison: July 28, 2019, bilateral MG 3d screening mammo w/cad. June 09, 2018, bilateral MG 3d screening mammo w/cad. There are scattered fibroglandular densities. Scattered benign round calcifications. Elongated group of calcifications left upper outer quadrant has been gradually increasing. ASSESSMENT: Incomplete: need additional imaging evaluation, BI-RAD 0 RECOMMENDATION: Special view mammogram of the left breast. (magnification) [facility] will attempt to contact patient to return for supplemental views.
== END | disposition home or self-care (01) ==
LOC: RADMAMWWP 11:56
PROVIDERS: ATTEND Internal Medicine
DX: Z12.31 Encounter for screening mammogram for malignant neoplasm of breast (principal); N95.1 Menopausal and female climacteric states; E11.9 Type 2 diabetes mellitus without complications; E78.5 Hyperlipidemia, unspecified; M85.80 Other specified disorders of bone density and structure, unspecified site
CPT/HCPCS: 77063; 77067; 77080; 80053; 80061; 83036; 84443; 85027

== ENCOUNTER → 2021-04-13 | Outpatient (CLI) | payer MEDICARE, BC ==
--- NOTE | 2021-04-16 13:31 | MM ---
Reason for exam: additional evaluation requested from abnormal screening. Last mammogram was performed 1 month ago. History: Patient is postmenopausal. Family history of premenopausal breast cancer in sister at age 40. Took hormonal contraceptives for 5 years. Physical Findings: Nurse did not find any significant physical abnormalities on exam. MG 3D Work Up W/Cad LT CC with magnification, LM with magnification, and LM view(s) were taken of the left breast. Prior study comparison: March 28, 2021, bilateral MG 3d screening mammo w/cad. July 28, 2019, bilateral MG 3d screening mammo w/cad. There are scattered fibroglandular densities. 2 o'clock grouped and regional calcifications, punctate and round, likely benign. 6 month follow up recommended. These results were verbally communicated with the patient and result sheet given to the patient on 04/13/21. ASSESSMENT: Probably benign, BI-RAD 3 RECOMMENDATION: Routine screening mammogram of the left breast in 6 months.
== END | disposition home or self-care (01) ==
LOC: RADMAMWWP 14:59
PROVIDERS: ATTEND Internal Medicine
DX: R92.8 Other abnormal and inconclusive findings on diagnostic imaging of breast (principal)
CPT/HCPCS: 77065; G0279; 77061

== ENCOUNTER → 2021-12-06 | Outpatient (CLI) | payer MEDICARE, BC ==
--- NOTE | 2021-12-07 14:01 | MM ---
Reason for Exam: Follow-up at short interval from prior study. Last screening mammogram was performed 8 month(s) ago. Patient History: Menarche at age 12. First Full-Term at age 18. Hysterectomy at age 39. Postmenopausal. Patient used Hormonal Contraceptives for 5 years. Sister had breast cancer, age 40. Risk Values: Abena 5 year model risk: 3.2%. NCI Lifetime model risk: 8.8%. Prior Study Comparison: 07/28/2019 Bilateral Screening Mammogram, [facility]. 03/28/2021 Bilateral Screening Mammogram, [facility]. 04/13/2021 Left Diagnostic Mammogram, [facility]. Tissue Density: Left: The breast tissue is heterogeneously dense. This may lower the sensitivity of mammography. Findings: Analyzed By CAD. Loosely clustered calcifications remain unchanged upper outer quadrant left breast dating back to 2019. Continued follow-up advised. No evidence for distortion or mass. Overall Assessment: Probably benign, BI-RAD 3 Management: Diagnostic Mammogram of both breasts in 4 months. A clinical breast exam by your physician is recommended on an annual basis and results should be correlated with mammographic findings. This exam should not preclude additional follow-up of suspicious palpable abnormalities. Results were given to the patient verbally at the time of exam. Electronically signed and approved by: Estuardo Cardona M.D. Radiologis
== END | disposition home or self-care (01) ==
LOC: RADMAMWWP 14:59
PROVIDERS: ATTEND Internal Medicine
DX: R92.8 Other abnormal and inconclusive findings on diagnostic imaging of breast (principal)
CPT/HCPCS: 77065; G0279; 77061

== ENCOUNTER 2023-04-24 15:15 | Inpatient (IN) | payer MEDICARE, BC ==
--- NOTE | 2023-04-24 17:35 | ED ---
General Adult HPI - General Chief complaint: Extremity Problem,Nontraumatic Stated complaint: Cellulitis Time Seen by Provider: 04/24/23 15:18 Source: patient, EMS Mode of arrival: EMS Limitations: no limitations - History of Present Illness Initial comments: This patient is a 72-year-old woman who presents with multiple complaints that been going on over the past couple of weeks. She states she is having swelling of the legs bilaterally. She is feeling short of breath and has a cough with some clear to white sputum. Patient denies fever or chills. She also has had some tingling to the hands bilaterally and she has seen Dr. Jha from orthop edic surgery about that. Today she has some pain to the right lower extremity from the low back down to the buttock and thigh. Patient denied trauma. She does note she has some weeping ulcers bilaterally. -: days(s) Improves with: none Worsens with: none Treatments Prior to Arrival: none - Related Data Home Medications Medication Instructions Recorded Confirmed Acetaminophen [Tylenol 8 Hour] 650 mg PO Q8H PRN 12/01/18 04/24/23 Albuterol Sulfate [Proair Hfa] 2 puff INHALATION RT-Q6H PRN 12/01/18 04/24/23 Aspirin EC [Ecotrin Low Dose] 81 mg PO BID 12/01/18 04/24/23 metFORMIN HCL [Glucophage] 500 mg PO BID 12/01/18 04/24/23 Cholecalciferol [Vitamin D3 (25 25 mcg PO BID 04/24/23 04/24/23 Mcg = 1000 Iu)] Tolterodine ER [Detrol LA] 4 mg PO HS 04/24/23 04/24/23 traMADol HCl [Ultram] 50 mg PO TID PRN 04/24/23 04/24/23 Allergies Allergy/AdvReac Type Severity Reaction Status Date / Time amoxicillin Allergy Rash/Hives Verified 04/24/23 18:42 dill weed Allergy Rash/Hives Uncoded 04/24/23 15:42 Review of Systems ROS Statement: Those systems with pertinent positive or pertinent negative responses have been documented in the HPI. ROS Other: All systems not noted in ROS Statement are negative. Constitutional: Denies: fever, chills Respiratory: Reports: cough, dyspnea. Denies: wheezes, hemoptysis Cardiovascular: Reports: orthopnea, edema. Denies: chest pain, palpitations, syncope Gastrointestinal: Denies: abdominal pain, vomiting, diarrhea Genitourinary: Denies: dysuria, hematuria Musculoskeletal: Reports: back pain Skin: Reports: other (Weeping leg ulcers). Denies: rash Neurological: Reports: paresthesias. Denies: headache, weakness Past Medical History Past Medical History: Diabetes Mellitus, Deep Vein Thrombosis (DVT), Eye Disorder, Osteoarthritis (OA), Pneumonia Additional Past Medical History / Comment(s): Seasonal allergies, recent congestions and also bladder infection, finishing po AB Rx. Macular degeneration, Rt eye worse. Edema in legs, hx water blisters, wears jobst stockings. kidney stones. Hx blood clot in leg History of Any Multi-Drug Resistant Organisms: None Reported Past Surgical History: Hysterectomy, Tubal Ligation Additional Past Surgical History / Comment(s): Multiple Kidney stone removals, LITHOTRIPSY. Blood clot removal left thigh, placed stent lt groin 2012 est. Past Anesthesia/Blood Transfusion Reactions: Previous Problems w/ Anesthesia Additional Past Anesthesia/Blood Transfusion Reaction / Comment(s): difficulty with breathing when waking up from previous kidney stone surgery x1 Past Psychological History: No Psychological Hx Reported Smoking Status: Former smoker - Past Family History Mother Family Medical History: Cancer Additional Family Medical History / Comment(s): colon cancer Father Family Medical History: Cancer Additional Family Medical History / Comment(s): lung cancer Sister(s) Family Medical History: Cancer Additional Family Medical History / Comment(s): breast cancer Brother(s) Family Medical History: Cancer, Pulmonary Embolus Daughter(s) Additional Family Medical History / Comment(s): daughter developed blood clot to shoulder and neck after IV PICC line insertion. granddaughter hx MTHFR with blood clot to groin General Exam Limitations: no limitations General appearance: alert, in no apparent distress Head exam: Present: atraumatic, normocephalic Eye exam: Present: normal appearance. Absent: scleral icterus, conjunctival injection ENT exam: Present: normal oropharynx Neck exam: Present: normal inspection, full ROM Respiratory exam: Present: normal lung sounds bilaterally. Absent: respiratory distress, wheezes, rales, rhonchi, stridor Cardiovascular Exam: Present: regular rate, normal rhythm GI/Abdominal exam: Present: soft. Absent: distended, tenderness, guarding, rebound, rigid, mass Extremities exam: Present: normal capillary refill, pedal edema. Absent: calf tenderness Neurological exam: Present: alert Skin exam: Present: warm, dry, intact, normal color. Absent: rash Course Vital Signs 04/24/23 04/24/23 04/24/23 15:27 18:26 20:06 Temperature 98.4 F 98.0 F Pulse Rate 100 94 93 Pulse Rate [ Director Game ] Respiratory 20 20 20 Rate Blood Pressure 135/76 143/101 126/79 O2 Sat by Pulse 93 L 93 L 96 Oximetry 04/24/23 04/25/23 04/25/23 22:57 00:00 04:00 Temperature 97.5 F L Pulse Rate 106 H 96 103 H Pulse Rate [ 103 H Director Game ] Respiratory 18 18 14 Rate Blood Pressure 130/76 138/70 143/79 O2 Sat by Pulse 94 L 94 L 94 L Oximetry 04/25/23 04/25/23 04/25/23 07:56 15:09 18:37 Temperature 98.9 F 98 F Pulse Rate 95 96 100 Pulse Rate [ Director Game ] Respiratory 18 20 20 Rate Blood Pressure 122/63 125/63 148/79 O2 Sat by Pulse 96 97 Oximetry EKG Findings - EKG Comments: EKG Findings:: Possible old inferior infarct - EKG Results: EKG: interpreted by HOLLY, sinus rhythm (Rate 93 bpm) - Blocks, [place], Hypertrophy, ST Abn: QRS axis and voltage: indeterminate axis, low voltage (<0.5 MV total QRS and <1.0 MV in each precordial lead) Medical Decision Making - Medical Decision Making Patient is 72-year-old woman who presents with a constellation of symptoms that includes dyspnea, orthopnea, cough with occasional clear or white sputum, leg swelling and weeping. The workup and exam consistent with congestive heart failure. Patient denies known history of this. The patient is admitted to have further workup including echocardiogram, cardiology consultation, and is pending computed tomography scan for PE and duplex Doppler to rule out DVT at the time of admission. The patient is given dose of Lovenox. Was pt. sent in by a medical professional or institution (, PA, DOT NET DEVELOPER, urgent care, hospital, or fdc...) When possible be specific @ -[No] Did you speak to anyone other than the patient for history (EMS, parent, family, police, friend...)? What history was obtained from this source @ -[No] Did you review nursing and triage notes (agree or disagree)? Why? @ -[I reviewed and agree with nursing and triage notes] Were old charts reviewed (outside hosp., previous admission, EMS record, old EKG, old radiological studies, urgent care reports/EKG's, fdc records)? Report findings @ -[No old charts were reviewed] Differential Diagnosis (chest pain, altered mental status, abdominal pain women, abdominal pain men, vaginal bleeding, weakness, fever, dyspnea, syncope, headache, dizziness, GI bleed, back pain, seizure, CVA, palpatations, mental health, musculoskeletal)? @ -[Differential Dyspnea: Coronary syndrome, arrhythmia, tamponade, asthma, COPD, pulmonary embolism, pneumonia, pneumothorax, pulmonary effusion, anaphylaxis, diabetic ketoacidosis, flailed chest, pulmonary contusion, diaphragmatic rupture, anemia, neuromuscular, this is not meant to be an all-inclusive list. EKG interpreted by me (3pts min.). @ -[I interpreted As above] X-rays interpreted by me (1pt min.). @ -[I interpreted as above CT interpreted by me (1pt min.). @ -[None done] U/S interpreted by me (1pt. min.). @ -[None done] What testing was considered but not performed or refused? (CT, X-rays, U/S, labs)? Why? @ -[None] What meds were considered but not given or refused? Why? @ -[None] Did you discuss the management of the patient with other professionals (professionals i.e. , PA, DOT NET DEVELOPER, lab, RT, psych nurse, social service liaison, hand former helper, teacher, head correction officer, spring encaser)? Give summary @ -Case is discussed with admitting physician and treatment recommendations are incorporated Was smoking cessation discussed for >3mins.? @ -[No] Was critical care preformed (if so, how long)? @ -[No] Were there social determinants of health that impacted care today? How? (Homel essness, low income, unemployed, alcoholism, drug addiction, transportation, low edu. Level, literacy, decrease access to med. care, prison, rehab)? @ -[No] Was there de-escalation of care discussed even if they declined (Discuss DNR or withdrawal of care, Hospice)? DNR status @ -[No] What co-morbidities impacted this encounter? (DM, HTN, Smoking, COPD, CAD, Cancer, CVA, ARF, Chemo, Hep., AIDS, mental health diagnosis, sleep apnea, morbid obesity)? @ -[None] Was patient admitted / discharged? Hospital course, mention meds given and route, prescriptions, significant lab abnormalities, going to OR and other pertinent info. @ -[I's patient is 72-year-old woman admitted for what appears to be congestive heart failure, there are some outstanding studies at time of admission including CT for possible pulmonary embolism and urinalysis. Undiagnosed new problem with uncertain prognosis? @ -[No] Drug Therapy requiring intensive monitoring for toxicity (Heparin, Nitro, Insulin, Cardizem)? @ -[No] Were any procedures done? @ -[No] Diagnosis/symptom? @ -[Acute congestive heart failure Elevated d-dimer Acute, or Chronic, or Acute on Chronic? @ -[Acute Uncomplicated (without systemic symptoms) or Complicated (systemic symptoms)? @ -[Complicated by dyspnea Side effects of treatment? @ -[No] Exacerbation, Progression, or Severe Exacerbation? @ -[No] Poses a threat to life or bodily function? How? (Chest pain, [place], [place], pneumonia, PE, COPD, DKA, ARF, appy, cholecystitis, CVA, Diverticulitis, Homicidal, Suicidal, threat to staff... and all critical care pts) @ -[Yes untreated congestive heart failure may progress to respiratory failure and - Lab Data Result diagrams: 05/09/23 06:00 05/09/23 06:00 Lab Results 04/24/23 04/24/23 04/24/23 Range/Units 16:57 16:57 16:57 WBC 6.6 (3.8-10.6) k/uL RBC 4.35 (3.80-5.40) m/uL Hgb 12.9 (11.4-16.0) gm/dL Hct 42.6 (34.0-46.0) % MCV 97.9 (80.0-100.0) fL MCH 29.7 (25.0-35.0) pg MCHC 30.3 L (31.0-37.0) g/dL RDW 15.8 H (11.5-15.5) % Plt Count 101 L (150-450) k/uL MPV 9.8 Neutrophils % 71 % Lymphocytes % 19 % Monocytes % 4 % Eosinophils % 5 % Basophils % 0 % Neutrophils # 4.7 (1.3-7.7) k/uL Lymphocytes # 1.2 (1.0-4.8) k/uL Monocytes # 0.3 (0-1.0) k/uL Eosinophils # 0.3 (0-0.7) k/uL Basophils # 0.0 (0-0.2) k/uL Hypochromasia Marked Macrocytosis Slight PT (10.0-12.5) sec INR (<1.2) APTT (22.0-30.0) sec D-Dimer (<0.60) mg/L FEU VBG pH (7.31-7.41) VBG pCO2 (37-51) mmHg VBG HCO3 (24-28) mmol/L Sodium 140 (137-145) mmol/L Potassium 4.7 (3.5-5.1) mmol/L Chloride 105 (98-107) mmol/L Carbon Dioxide 25 (22-30) mmol/L Anion Gap 10 mmol/L BUN 22 H (7-17) mg/dL Creatinine 0.69 (0.52-1.04) mg/dL Est GFR (CKD-EPI)AfAm >90 (>60 ml/min/1.73 sqM) Est GFR (CKD-EPI)NonAf 87 (>60 ml/min/1.73 sqM) Glucose 119 H (74-99) mg/dL Lactic Ac Sepsis Rflx Plasma Lactic Acid Srinivasa (0.7-2.0) mmol/L Calcium 8.6 (8.4-10.2) mg/dL Total Bilirubin 0.7 (0.2-1.3) mg/dL AST 19 (14-36) U/L ALT 12 (4-34) U/L Alkaline Phosphatase 78 (38-126) U/L Troponin I (0.000-0.034) ng/mL NT-Pro-B Natriuret Pep 5250 pg/mL Total Protein 6.4 (6.3-8.2) g/dL Albumin 3.4 L (3.5-5.0) g/dL Urine Color Yellow Urine Appearance Clear (Clear) Urine pH 5.5 (5.0-8.0) Ur Specific Harvel 1.025 (1.001-1.035) Urine Protein 2+ H (Negative) Urine Glucose (UA) Negative (Negative) Urine Ketones Negative (Negative) Urine Blood Moderate H (Negative) Urine Nitrite Negative (Negative) Urine Bilirubin Negative (Negative) Urine Urobilinogen <2.0 (<2.0) mg/dL Ur Leukocyte Esterase Large H (Negative) Urine RBC 93 H (0-5) /hpf Urine WBC 74 H (0-5) /hpf Ur Squamous Epith Cells 1 (0-4) /hpf Urine Bacteria Rare H (None) /hpf Hyaline Casts 1 (0-2) /lpf Urine Mucus Occasional H (None) /hpf 04/24/23 04/24/23 04/24/23 Range/Units 16:57 16:57 18:04 WBC (3.8-10.6) k/uL RBC (3.80-5.40) m/uL Hgb (11.4-16.0) gm/dL Hct (34.0-46.0) % MCV (80.0-100.0) fL MCH (25.0-35.0) pg MCHC (31.0-37.0) g/dL RDW (11.5-15.5) % Plt Count (150-450) k/uL MPV Neutrophils % % Lymphocytes % % Monocytes % % Eosinophils % % Basophils % % Neutrophils # (1.3-7.7) k/uL Lymphocytes # (1.0-4.8) k/uL Monocytes # (0-1.0) k/uL Eosinophils # (0-0.7) k/uL Basophils # (0-0.2) k/uL Hypochromasia Macrocytosis PT (10.0-12.5) sec INR (<1.2) APTT (22.0-30.0) sec D-Dimer (<0.60) mg/L FEU VBG pH (7.31-7.41) VBG pCO2 (37-51) mmHg VBG HCO3 (24-28) mmol/L Sodium (137-145) mmol/L Potassium (3.5-5.1) mmol/L Chloride (98-107) mmol/L Carbon Dioxide (22-30) mmol/L Anion Gap mmol/L BUN (7-17) mg/dL Creatinine (0.52-1.04) mg/dL Est GFR (CKD-EPI)AfAm (>60 ml/min/1.73 sqM) Est GFR (CKD-EPI)NonAf (>60 ml/min/1.73 sqM) Glucose (74-99) mg/dL Lactic Ac Sepsis Rflx Y Plasma Lactic Acid Srinivasa 2.1 H* (0.7-2.0) mmol/L Calcium (8.4-10.2) mg/dL Total Bilirubin (0.2-1.3) mg/dL AST (14-36) U/L ALT (4-34) U/L Alkaline Phosphatase (38-126) U/L Troponin I <0.012 (0.000-0.034) ng/mL NT-Pro-B Natriuret Pep pg/mL Total Protein (6.3-8.2) g/dL Albumin (3.5-5.0) g/dL Urine Color Urine Appearance (Clear) Urine pH (5.0-8.0) Ur Specific [place] (1.001-1.035) Urine Protein (Negative) Urine Glucose (UA) (Negative) Urine Ketones (Negative) Urine Blood (Negative) Urine Nitrite (Negative) Urine Bilirubin (Negative) Urine Urobilinogen (<2.0) mg/dL Ur Leukocyte Esterase (Negative) Urine RBC (0-5) /hpf Urine WBC (0-5) /hpf Ur Squamous Epith Cells (0-4) /hpf Urine Bacteria (None) /hpf Hyaline Casts (0-2) /lpf Urine Mucus (None) /hpf 04/24/23 04/24/23 Range/Units 18:29 18:35 WBC (3.8-10.6) k/uL RBC (3.80-5.40) m/uL Hgb (11.4-16.0) gm/dL Hct (34.0-46.0) % MCV (80.0-100.0) fL MCH (25.0-35.0) pg MCHC (31.0-37.0) g/dL RDW (11.5-15.5) % Plt Count (150-450) k/uL MPV Neutrophils % % Lymphocytes % % Monocytes % % Eosinophils % % Basophils % % Neutrophils # (1.3-7.7) k/uL Lymphocytes # (1.0-4.8) k/uL Monocytes # (0-1.0) k/uL Eosinophils # (0-0.7) k/uL Basophils # (0-0.2) k/uL Hypochromasia Macrocytosis PT 11.3 (10.0-12.5) sec INR 1.0 (<1.2) APTT 19.7 L (22.0-30.0) sec D-Dimer 2.31 H (<0.60) mg/L FEU VBG pH 7.36 (7.31-7.41) VBG pCO2 49 (37-51) mmHg VBG HCO3 27 (24-28) mmol/L Sodium (137-145) mmol/L Potassium (3.5-5.1) mmol/L Chloride (98-107) mmol/L Carbon Dioxide (22-30) mmol/L Anion Gap mmol/L BUN (7-17) mg/dL Creatinine (0.52-1.04) mg/dL Est GFR (CKD-EPI)AfAm (>60 ml/min/1.73 sqM) Est GFR (CKD-EPI)NonAf (>60 ml/min/1.73 sqM) Glucose (74-99) mg/dL Lactic Ac Sepsis Rflx Plasma Lactic Acid Srinivasa (0.7-2.0) mmol/L Calcium (8.4-10.2) mg/dL Total Bilirubin (0.2-1.3) mg/dL AST (14-36) U/L ALT (4-34) U/L Alkaline Phosphatase (38-126) U/L Troponin I (0.000-0.034) ng/mL NT-Pro-B Natriuret Pep pg/mL Total Protein (6.3-8.2) g/dL Albumin (3.5-5.0) g/dL Urine Color Urine Appearance (Clear) Urine pH (5.0-8.0) Ur Specific [place] (1.001-1.035) Urine Protein (Negative) Urine Glucose (UA) (Negative) Urine Ketones (Negative) Urine Blood (Negative) Urine Nitrite (Negative) Urine Bilirubin (Negative) Urine Urobilinogen (<2.0) mg/dL Ur Leukocyte Esterase (Negative) Urine RBC (0-5) /hpf Urine WBC (0-5) /hpf Ur Squamous Epith Cells (0-4) /hpf Urine Bacteria (None) /hpf Hyaline Casts (0-2) /lpf Urine Mucus (None) /hpf Disposition Clinical Impression: CHF (congestive heart failure), Elevated d-dimer Disposition: ADMITTED IP TO THIS HOSP Condition: Fair
[2023-04-24 17:51] LABS: Basophils % (A) 0 %; Eosinophils # (A) 0.3 k/uL (0-0.7); Eosinophils % (A) 5 %; HCT 42.6 % (34.0-46.0); HGB 12.9 gm/dL (11.4-16.0); Hypochromasia Marked; Lymphocytes # (A) 1.2 k/uL (1.0-4.8); Lymphocytes % (A) 19 %; MCH 29.7 pg (25.0-35.0); MCHC 30.3 g/dL (31.0-37.0); MCV 97.9 fL (80.0-100.0); Macrocytosis Slight; Mean Platelet Volume 9.8; Monocytes # (A) 0.3 k/uL (0-1.0); Monocytes % (A) 4 %; Neutrophils # (A) 4.7 k/uL (1.3-7.7); Neutrophils % (A) 71 %; Platelet Count 101 k/uL (150-450); RBC 4.35 m/uL (3.80-5.40); RDW 15.8 % (11.5-15.5); WBC 6.6 k/uL (3.8-10.6)
[2023-04-24 17:55] LABS: Appearance,Urine Clear (Clear); Bacteria,Urine Rare /hpf; Bilirubin,Urine Negative (Negative); Blood,Urine Moderate (Negative); Color,Urine Yellow; Glucose,Urine (UA) Negative (Negative); Hyaline Casts,Urine 1 /lpf (0-2); Ketones,Urine Negative (Negative); Leukocyte Esterase,Urine Large (Negative); Mucus,Urine Occasional /hpf; Nitrite,Urine Negative (Negative); PH, Urine 5.5 (5.0-8.0); Protein,Urine 2+ (Negative); RBC,Urine 93 /hpf (0-5); Specific Gravity,Urine 1.025 (1.001-1.035); Squamous Epithelial Cell,Urine 1 /hpf (0-4); Urobilinogen,Urine <2.0 mg/dL (<2.0); WBC,Urine 74 /hpf (0-5)
[2023-04-24 18:00] LABS: ALT 12 U/L (4-34); AST 19 U/L (14-36); African American GFR (CKD) >90 (>60 ml/min/1.73 sqM); Albumin 3.4 g/dL (3.5-5.0); Alkaline Phosphatase 78 U/L (38-126); Anion Gap 10 mmol/L; Blood Urea Nitrogen 22 mg/dL (7-17); Calcium 8.6 mg/dL (8.4-10.2); Carbon Dioxide 25 mmol/L (22-30); Chloride 105 mmol/L (98-107); Glucose 119 mg/dL (74-99); Non-African American GFR(CKD) 87 (>60 ml/min/1.73 sqM); Potassium 4.7 mmol/L (3.5-5.1); Sodium 140 mmol/L (137-145); Total Bilirubin 0.7 mg/dL (0.2-1.3); Total Protein 6.4 g/dL (6.3-8.2)
[2023-04-24 18:09] LABS: NT-Pro-B-Type Natriuretic Pept 5250 pg/mL
--- NOTE | 2023-04-24 18:14 | XR ---
EXAMINATION: XR chest 2V: 04/24/2023 5:59 PM CLINICAL INDICATION: difficulty breathing TECHNIQUE: Departmental protocol COMPARISON: 10/30/2018 FINDINGS: Overlying soft tissues are prominent. There is prominent pulmonary venous congestion and moderate bilateral symmetric silhouetting of the p ulmonary vasculature throughout the bilateral upper, mid, and lower lung zones by a fine reticular pa ttern of increased density reaching the periphery as septal lines. Pleural spaces appear negative. The cardiac silhouette appears moderately enlarged, mildly more so than on 10/30/2018. The skeletal structures and soft tissues are negative for acute findings. IMPRESSION: Marked interstitial phase pulmonary edema, presumably cardiogenic etiology.
[2023-04-24 18:51] LABS: VBG PH 7.36 (7.31-7.41)
[2023-04-24] MEDS ORDERED: FUROSEMIDE 10 MG/ML 4 ML VIAL IV SCH (19:00)
[2023-04-24] MEDS ORDERED: FUROSEMIDE 10 MG/ML 4 ML VIAL IV STA (19:05)
[2023-04-24] MEDS ORDERED: NITROGLYCERIN OINT 1 INCH/GM PACKET TOPICAL STA (19:05)
[2023-04-24 19:08] LABS: Prothrombin Time 11.3 sec (10.0-12.5)
[2023-04-24 19:12] LABS: Partial Thromboplastin Time 19.7 sec (22.0-30.0)
[2023-04-24] MEDS ORDERED: ENOXAPARIN 150 MG/ML SYRINGE SQ STA (21:09)
--- NOTE | 2023-04-24 22:59 | CT ---
EXAM: CT Angiography Chest With Intravenous Contrast CLINICAL HISTORY: CT Reason: possible PE TECHNIQUE: Axial computed tomographic angiography images of the chest with intravenous contrast. CTDI is 65.2 mGy and DLP is 1654.6 mGy-cm. This CT exam was performed using one or more of the following dose reduction techniques: automated exposure control, adjustment of the mA and/or kV according to patient size, and/or use of iterative reconstruction technique. MIP reconstructed images were created and reviewed. COMPARISON: Chest x-ray from October 30, 2018 FINDINGS: Pulmonary arteries: The pulmonary arterial tree is adequately opacified with contrast. No large central emboli are visible. There is under opacification of a small segmental branches in the left lower lobe laterally. No discrete thrombus is visible. This is of questionable significance. Aorta: The aortic arch is mildly calcified but nondilated. There is no aneurysm or dissection. Lungs: Scattered reticular infiltrates in the right upper lobe and both lung bases. Consider viral interstitial pneumonia. No focal consolidation is seen. Pleural space: Unremarkable. No significant effusion. No pneumothorax. Heart: The heart is mildly enlarged. Moderate to severe coronary calcification is present. There is a trace pericardial effusion. No evidence of RV dysfunction. Bones/joints: Mild degenerative changes in the spine. No acute fracture or destructive bone lesion is seen. No dislocation. Soft tissues: Unremarkable. Lymph nodes: Unremarkable. No enlarged lymph nodes. IMPRESSION: 1. The heart is mildly enlarged. Moderate to severe coronary calcification is present. There is a trace pericardial effusion. 2. Scattered reticular infiltrates in the right upper lobe and both lung bases. Consider viral interstitial pneumonia. No focal consolidation is seen. 3. The pulmonary arterial tree is adequately opacified with contrast. No large central emboli are visible. There is under opacification of a small segmental branch in the left lower lobe laterally. No discrete thrombus is visible. This is of questionable significance. A small segmental pulmonary embolism cannot be excluded. 4. The aortic arch is mildly calcified but nondilated. There is no aneurysm or dissection. <MYCVCSECTION> Communications: 04/24/23 23:09 Call Doctor Regarding Above results, called Dr. Olea on 04/24 23:09 (-05:00)
--- NOTE | 2023-04-25 00:08 | US ---
EXAM: US Duplex Bilateral Lower Extremities Veins CLINICAL HISTORY: ITS.REASON US Reason: possible DVT TECHNIQUE: Real-time duplex ultrasound scan of the bilateral lower extremity veins integrating B-mode two-dimensional vascular structure, Doppler spectral analysis, color flow Doppler imaging and compression. COMPARISON: None FINDINGS: Right deep veins: No DVT in the right common femoral, proximal and mid femoral, or proximal deep femoral. The visualized veins demonstrate normal color flow, are normally compressible, with normal phasic flow and/or augmentation response. The right distal superficial femoral vein and popliteal vein and calf veins are not well visualized. Right superficial veins: Unremarkable. No thrombus in the visualized right great saphenous vein. Left deep veins: No DVT in the left common femoral, femoral, proximal deep femoral or popliteal veins. The veins demonstrate normal color flow, are normally compressible, with normal phasic flow and/or augmentation response. The left distal superficial femoral vein and popliteal vein and calf veins are not well visualized. Left superficial veins: Unremarkable. No thrombus in the visualized left great saphenous vein. Soft tissues: No acute findings. No popliteal cyst. IMPRESSION: No deep venous thrombosis identified in the visualized veins of either lower extremity. The bilateral distal superficial femoral veins, popliteal veins, and calf veins are not visualized.
[2023-04-25] MEDS: FUROSEMIDE 10 MG/ML 4 ML VIAL IV SCH ×2 (06:47→20:14)
[2023-04-25] MEDS ORDERED: ALBUTEROL HFA INHALER INHALATION PRN (09:02)
--- NOTE | 2023-04-25 12:24 | P.CRDCN ---
History of Present Illness History of present illness: HISTORY OF PRESENT ILLNESS: This is a 72-year-old female with a past medical history significant for diabetes and morbid obesity. 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 We have been asked to see the patient in consultation for new onset CHF. Patient examined at the bedside in the emergency room. Patient states that she presented to the hospital due to shortness of breath with exertion and increased lower extremity edema. She also reports her hands were swollen and sore. The patient was diagnosed with pneumonia and was started on antibiotics. She was also found to be in acute congestive heart failure and was started on IV Lasix 40 mg every 12 hours. The patient denies a previous history of congestive heart failure. She states that she does have some chronic lower extremity edema at baseline and sees Dr. Hennessy on an outpatient basis regarding this. She states that he had prescribed her KUSH hose in the past. The patient denies a history of obstructive sleep apnea but states that she was supposed to have a sleep study performed in which she has not done yet. * EKG reveals sinus mechanism with no signs of acute ischemia * Chest xray marked interstitial phase pulmonary edema * Laboratory data: D-dimer 2.31. Troponin negative 3. ProBNP 5250 * Current home cardiac medications include aspirin 81 mg twice a day * Chest CTA: Negative for pulmonary embolism. Moderate to severe coronary calcifications. No evidence of RV dysfunction. Scattered reticular infiltrates in the right upper lobe and both lung bases. Consider bilateral interstitial pneumonia. No large central embolism is visible. A small segmental pulmonary embolus and cannot be excluded. * Lower extremity Doppler: Negative for DVT REVIEW OF SYSTEMS: At the time of my exam: CONSTITUTIONAL: Denies fever or chills. HEENT: Denies blurred vision, vision changes, or eye pain. Denies hemoptysis CARDIOVASCULAR: Denies chest pain. Denies orthopnea. Denies PND. Denies palpitations RESPIRATORY: Denies shortness of breath. GASTROINTESTINAL: Denies abdominal pain. Denies nausea or vomiting. HEMATOLOGIC: Denies bleeding disorders. GENITOURINARY: Denies any blood in urine. SKIN: Denies pruitis. Denies rash. PHYSICAL EXAM: VITAL SIGNS: Reviewed. GENERAL: Well-developed in no acute distress. HEENT: Head is normocephalic. Pupils are equal, round. Sclerae anicteric. Mucous membranes of the mouth are moist. Neck supple. No JVD or thyromegaly LUNGS: Respirations even and unlabored. Lungs essentially clear to auscultation bilaterally. HEART: Regular rate and rhythm. S1 and S2 heard. ABDOMEN: Soft. Nondistended. Nontender. EXTREMITIES: Normal range of motion. No clubbing or cyanosis. Peripheral pulses intact. Bilateral lower extremity edema noted. NEUROLOGIC: Awake and alert. Oriented x 3. ASSESSMENT: Bilateral pneumonia New onset heart failure, type unknown, echo pending, proBNP 5250 Moderate to severe coronary calcifications, per computed tomography scan Diabetes Morbid obesity: BMI 50.6 PLAN: Obtain 2-D echo to assess cardiac structure and function Continue IV Lasix 40 mg every 12 hours Daily weights, accurate I&O, and monitoring of kidney function Continue treatment of pneumonia per primary medicine Recommend outpatient sleep study evaluation Further recommendations pending patient's course Nurse practitioner note has been reviewed by physician. Signing provider agrees with the documented findings, assessment, and plan of care. Past Medical History Past Medical History: Diabetes Mellitus, Deep Vein Thrombosis (DVT), Eye Disorder, Osteoarthritis (OA), Pneumonia Additional Past Medical History / Comment(s): Seasonal allergies, recent congestions and also bladder infection, finishing po AB Rx. Macular degeneration, Rt eye worse. Edema in legs, hx water blisters, wears jobst stockings. kidney stones. Hx blood clot in leg History of Any Multi-Drug Resistant Organisms: None Reported Past Surgical History: Hysterectomy, Tubal Ligation Additional Past Surgical History / Comment(s): Multiple Kidney stone removals, LITHOTRIPSY. Blood clot removal left thigh, placed stent lt groin 2012 est. Past Anesthesia/Blood Transfusion Reactions: Previous Problems w/ Anesthesia Additional Past Anesthesia/Blood Transfusion Reaction / Comment(s): difficulty with breathing when waking up from previous kidney stone surgery x1 Past Psychological History: No Psychological Hx Reported Smoking Status: Former smoker - Past Family History Mother Family Medical History: Cancer Additional Family Medical History / Comment(s): colon cancer Father Family Medical History: Cancer Additional Family Medical History / Comment(s): lung cancer Sister(s) Family Medical History: Cancer Additional Family Medical History / Comment(s): breast cancer Brother(s) Family Medical History: Cancer, Pulmonary Embolus Daughter(s) Additional Family Medical History / Comment(s): daughter developed blood clot to shoulder and neck after IV PICC line insertion. granddaughter hx MTHFR with blood clot to groin Medications and Allergies Home Medications Medication Instructions Recorded Confirmed Type Acetaminophen [Tylenol 8 Hour] 650 mg PO Q8H PRN 12/01/18 04/24/23 History Albuterol Sulfate [Proair Hfa] 2 puff INHALATION RT-Q6H PRN 12/01/18 04/24/23 History Aspirin EC [Ecotrin Low Dose] 81 mg PO BID 12/01/18 04/24/23 History metFORMIN HCL [Glucophage] 500 mg PO BID 12/01/18 04/24/23 History Cholecalciferol [Vitamin D3 (25 25 mcg PO BID 04/24/23 04/24/23 History Mcg = 1000 Iu)] Tolterodine ER [Detrol LA] 4 mg PO HS 04/24/23 04/24/23 History traMADol HCl [Ultram] 50 mg PO TID PRN 04/24/23 04/24/23 History Allergies Allergy/AdvReac Type Severity Reaction Status Date / Time amoxicillin Allergy Rash/Hives Verified 04/24/23 18:42 dill weed Allergy Rash/Hives Uncoded 04/24/23 15:42 Physical Exam Vitals: Vital Signs Temp Pulse Pulse Resp BP Pulse Ox 04/25/23 07:56 95 18 122/63 96 04/25/23 04:00 103 H 103 H 14 143/79 94 L 04/25/23 00:00 96 18 138/70 94 L 04/24/23 22:57 97.5 F L 106 H 18 130/76 94 L 04/24/23 20:06 98.0 F 93 20 126/79 96 04/24/23 18:26 94 20 143/101 93 L 04/24/23 15:27 98.4 F 100 20 135/76 93 L Intake and Output 04/24/23 04/25/23 04/25/23 22:59 06:59 14:59 Output Total 1400 1500 Balance -1400 -1500 Output: Urine 1400 1500 Other: Voiding Method External Catheter Weight 137.892 kg Results 04/24/23 16:57 04/24/23 16:57 Cardiac Enzymes 04/24/23 04/24/23 04/24/23 Range/Units 16:57 16:57 19:51 AST 19 (14-36) U/L Troponin I <0.012 <0.012 (0.000-0.034) ng/mL 04/25/23 Range/Units 00:38 AST (14-36) U/L Troponin I <0.012 (0.000-0.034) ng/mL Coagulation 04/24/23 Range/Units 18:29 PT 11.3 (10.0-12.5) sec APTT 19.7 L (22.0-30.0) sec CBC 04/24/23 Range/Units 16:57 WBC 6.6 (3.8-10.6) k/uL RBC 4.35 (3.80-5.40) m/uL Hgb 12.9 (11.4-16.0) gm/dL Hct 42.6 (34.0-46.0) % Plt Count 101 L (150-450) k/uL Comprehensive Metabolic Panel 04/24/23 Range/Units 16:57 Sodium 140 (137-145) mmol/L Potassium 4.7 (3.5-5.1) mmol/L Chloride 105 (98-107) mmol/L Carbon Dioxide 25 (22-30) mmol/L BUN 22 H (7-17) mg/dL Creatinine 0.69 (0.52-1.04) mg/dL Glucose 119 H (74-99) mg/dL Calcium 8.6 (8.4-10.2) mg/dL AST 19 (14-36) U/L ALT 12 (4-34) U/L Alkaline Phosphatase 78 (38-126) U/L Total Protein 6.4 (6.3-8.2) g/dL Albumin 3.4 L (3.5-5.0) g/dL Current Medications Generic Name Dose Route Start Last Admin Trade Name Freq PRN Reason Stop Dose Admin Albuterol Sulfate 2 puff 04/25/23 09:02 Albuterol Hfa Inhaler INHALATION RT-Q6H PRN Shortness Of Breath Aspirin 81 mg 04/25/23 21:00 Aspirin 81 Mg PO BID GUS Cholecalciferol 25 mcg 04/25/23 21:00 Cholecalciferol 25 Mcg (1000 Iu) Tablet PO BID GUS Furosemide 40 mg 04/25/23 07:00 04/25/23 06:47 Furosemide 10 Mg/Ml 4 Ml Vial IV 40 mg Q12H GUS Administration Oxybutynin Chloride 10 mg 04/25/23 21:00 Oxybutynin 10 Mg Tab.Er.24 PO HS GUS Sodium Chloride 10 ml 04/24/23 21:00 04/24/23 22:41 Sodium Chloride 0.9% Flush 10 Ml Syringe IV 10 ml BID GUS Administration Tramadol HCl 50 mg 04/25/23 09:02 Tramadol 50 Mg Tab PO TID PRN Pain Intake and Output 04/24/23 04/25/23 04/25/23 22:59 06:59 14:59 Output Total 1400 1500 Balance -1400 -1500 Output: Urine 1400 1500 Other: Voiding Method External Catheter Weight 137.892 kg 04/24/23 16:57 04/24/23 16:57
[2023-04-25] MEDS: ENOXAPARIN 40 MG/0.4 ML SYRINGE SQ SCH (14:52)
--- NOTE | 2023-04-25 15:45 | CA ---
Transthoracic Echo Report Name: Lorene Palma Age: 72 Gender: F : 1950 Exam Date: 04/25/2023 11:01 Exam Location: [facility] Ht (in): 65 Wt (lb): 305 Ordering Physician: Eldon Fernandes MD Attending/Referring Phys: Knife Grinder Lydia Arellano RDCS Procedure CPT: Indications: Heart failure Cardiac Hx: Technical Quality: Poor Contrast 1: Definity Total Dose (mL): 2 Contrast 2: Total Dose (mL): MEASUREMENTS (Male / Female) Normal Values 2D ECHO LV Diastolic Diameter PLAX 4.6 cm 4.2 - 5.9 / 3.9 - 5.3 cm LV Systolic Diameter PLAX 2.6 cm IVS Diastolic Thickness 0.9 cm 0.6 - 1.0 / 0.6 - 0.9 cm LVPW Diastolic Thickness 1.0 cm 0.6 - 1.0 / 0.6 - 0.9 cm LV Relative Wall Thickness 0.4 RV Internal Dim ED PLAX 4.9 cm LVOT Diameter 1.7 cm LA Volume 70.6 cm??? 18 - 58 / 22 - 52 cm??? LA Volume Index 27.1 cm???/m??? 16 - 28 cm???/m??? M-MODE Aortic Root Diameter MM 3.3 cm LA Systolic Diameter MM 4.3 cm LA Ao Ratio MM 1.3 DOPPLER AV Peak Velocity 195.9 cm/s AV Peak Gradient 15.3 mmHg AV Mean Velocity 154.1 cm/s AV Mean Gradient 10.2 mmHg AV Velocity Time Integral 38.1 cm LVOT Peak Velocity 91.0 cm/s LVOT Peak Gradient 3.3 mmHg LVOT Velocity Time Integral 18.3 cm LVOT Stroke Volume 41.5 cm??? LVOT Stroke Volume Index 17.5 ml/m??? LVOT Cardiac Index 1515.2 cm???/min???m??? AV Area Cont Eq vti 1.1 cm??? AV Area Cont Eq pk 1.1 cm??? MV Area PHT 3.7 cm??? Mitral E Point Velocity 79.1 cm/s Mitral A Point Velocity 123.3 cm/s Mitral E to A Ratio 0.6 MV Deceleration Time 203.3 ms MV E' Velocity 5.5 cm/s Mitral E to MV E' Ratio 14.4 TR Peak Velocity 347.7 cm/s TR Peak Gradient 48.4 mmHg Right Atrial Pressure 20.0 mmHg Pulmonary Artery Systolic Pressu 68.4 mmHg Right Ventricular Systolic Press 68.4 mmHg FINDINGS Left Ventricle Left ventricular cavity size normal. Left ventricular wall thickness normal. No obvious regional wall motion abnormalities. Left ventricular ejection fraction is estimated at 50-55%. Right Ventricle Severe right ventricular dilatation. Severe pulmonary hypertension. Right Atrium Moderate right atrial dilatation. Left Atrium Moderately increased left atrial volume. Mildly increased left atrial area. Mitral Valve Structurally normal mitral valve. Mitral valve thickened. Mild mitral annular calcification. [id number] mitral regurgitation. Aortic Valve No aortic valve stenosis or regurgitation. Tricuspid Valve Structurally normal tricuspid valve. [id number] tricuspid regurgitation. Pulmonic Valve Trace pulmonic regurgitation. Pericardium Small pericardial effusion. Aorta Normal size aortic root and proximal ascending aorta. CONCLUSIONS Normal LV function Severe pulmonary hypertension Moderate to severe tricuspid regurgitation Small pericardial effusion Previewed by: Dr. Jarvis Galindo MD (Electronically Signed) Final Date: 25 April 2023 15:44
--- NOTE | 2023-04-25 16:06 | P.CNPUL ---
History of Present Illness Consult date: 04/25/23 Requesting physician: Pat Angulo Reason for consult: hypoxemia, pleural effusion, abnormal CXR/CT Chief complaint: Shortness of breath. History of present illness: Pulmonary consult dated 04/25/2023. 72-year-old female seen in the emergency department, room 15. She's here with her . She apparently presented to the emergency department, on April 24, with multiple complaints including leg swelling, shortness of breath, cough, and generally just not feeling well. She also has some tingling to her hands bilaterally, and apparently has been seen by one of the hand surgeons. The patient is laying flat in bed. She is on a couple liters of oxygen. She's not receiving any IV fluids. She tells me that she has cellulitis of the lower extremities. She is a rather large woman. She also tells me that her only major medical problem is diabetes mellitus. Although, she apparently has a history of DVT, osteoarthritis, and pneumonia. She also has a previous history of kidney stones, status post lithotripsy. Current labs include a white count 6.6, hemoglobin 12.9, hematocrit 42.6, and a platelet count of 101,000. D-dimer is 2.31. Venous blood gases showed CO2 49 and a pH is 7.36. Sodium 140, potassium 4.7, chlorides 105, CO2 25, BUN 22, creatinine 0.69. The N-terminal proBNP is elevated at 5250. Troponins were negative 2. Urine showed 2+ protein and moderate blood and large leukocyte esterase, 93 RBCs 74 WBCs, rare bacteria, and occasional mucus. Testing for coronavirus was negative. Chest x- ray showed changes consistent with pulmonary edema/fluid overload. CT angiogram was negative for pulmonary embolism. Doppler of the lower semis was negative for DVT. Review of Systems REVIEW OF SYSTEMS: CONSTITUTIONAL: [Negative.] NEUROLOGIC: Tingling in her hands. HEENT: [ Negative.] CARDIAC: Lower extremity edema. PULMONARY: Shortness of breath. GI: [Negative.] : [Negative.] RHEUMATOLOGIC: [ Negative.] IMMUNOLOGIC: [ Negative.] ENDOCRINE: [Negative. ] DERMATOLOGIC: Possible sinusitis. Past Medical History Past Medical History: Diabetes Mellitus, Deep Vein Thrombosis (DVT), Eye Disorder, Osteoarthritis (OA), Pneumonia Additional Past Medical History / Comment(s): Seasonal allergies, recent congestions and also bladder infection, finishing po AB Rx. Macular degeneration, Rt eye worse. Edema in legs, hx water blisters, wears jobst stockings. kidney stones. Hx blood clot in leg History of Any Multi-Drug Resistant Organisms: None Reported Past Surgical History: Hysterectomy, Tubal Ligation Additional Past Surgical History / Comment(s): Multiple Kidney stone removals, LITHOTRIPSY. Blood clot removal left thigh, placed stent lt groin 2012 est. Past Anesthesia/Blood Transfusion Reactions: Previous Problems w/ Anesthesia Additional Past Anesthesia/Blood Transfusion Reaction / Comment(s): difficulty with breathing when waking up from previous kidney stone surgery x1 Past Psychological History: No Psychological Hx Reported Smoking Status: Former smoker - Past Family History Mother Family Medical History: Cancer Additional Family Medical History / Comment(s): colon cancer Father Family Medical History: Cancer Additional Family Medical History / Comment(s): lung cancer Sister(s) Family Medical History: Cancer Additional Family Medical History / Comment(s): breast cancer Brother(s) Family Medical History: Cancer, Pulmonary Embolus Daughter(s) Additional Family Medical History / Comment(s): daughter developed blood clot to shoulder and neck after IV PICC line insertion. granddaughter hx MTHFR with blood clot to groin Medications and Allergies Home Medications Medication Instructions Recorded Confirmed Type Acetaminophen [Tylenol 8 Hour] 650 mg PO Q8H PRN 12/01/18 04/24/23 History Albuterol Sulfate [Proair Hfa] 2 puff INHALATION RT-Q6H PRN 12/01/18 04/24/23 History Aspirin EC [Ecotrin Low Dose] 81 mg PO BID 12/01/18 04/24/23 History metFORMIN HCL [Glucophage] 500 mg PO BID 12/01/18 04/24/23 History Cholecalciferol [Vitamin D3 (25 25 mcg PO BID 04/24/23 04/24/23 History Mcg = 1000 Iu)] Tolterodine ER [Detrol LA] 4 mg PO HS 04/24/23 04/24/23 History traMADol HCl [Ultram] 50 mg PO TID PRN 04/24/23 04/24/23 History Allergies Allergy/AdvReac Type Severity Reaction Status Date / Time amoxicillin Allergy Rash/Hives Verified 04/24/23 18:42 dill weed Allergy Rash/Hives Uncoded 04/24/23 15:42 Physical Exam Osteopathic Statement: *. No significant issues noted on an osteopathic structural exam other than those noted in the History and Physical/Consult. Vitals: Vital Signs Temp Pulse Pulse Resp BP Pulse Ox 04/25/23 15:09 98.9 F 96 20 125/63 04/25/23 07:56 95 18 122/63 96 04/25/23 04:00 103 H 103 H 14 143/79 94 L 04/25/23 00:00 96 18 138/70 94 L 04/24/23 22:57 97.5 F L 106 H 18 130/76 94 L 04/24/23 20:06 98.0 F 93 20 126/79 96 04/24/23 18:26 94 20 143/101 93 L Intake and Output 04/25/23 04/25/23 04/25/23 06:59 14:59 22:59 Output Total 1400 2600 Balance -1400 -2600 Output: Urine 1400 2600 Other: Voiding Method External Catheter No acute distress, oriented 3. Currently on 2 L of oxygen. HEENT examination is grossly unremarkable. Neck supple. Full range of motion. No adenopathy thyromegaly or neck vein distention. Cardiovascular examination reveals regular rhythm rate. S1-S2 normal. No S3 or S4. No discernible murmur noted. Heart rate 96 bpm. Heart sounds are distant. Lungs reveal scattered crackles. Breath sounds equal. 3 L saturation is 93%. No rhonchi or wheezes. Abdomen obese, without masses or tenderness. Bowel sounds are noted. Extremities are intact. No cyanosis or clubbing. After significant bilateral lower shimmy edema. Skin reveals cellulitic changes in the lower extremities. Neurologic examination is brief but nonfocal. Results - Laboratory Findings CBC and BMP: 04/24/23 16:57 04/24/23 16:57 PT/INR, D-dimer PT 11.3 sec (10.0-12.5) 04/24/23 18:29 INR 1.0 (<1.2) 04/24/23 18:29 D-Dimer 2.31 mg/L FEU (<0.60) H 04/24/23 18:29 Abnormal lab findings: Abnormal Labs 04/24/23 04/24/23 04/24/23 16:57 16:57 16:57 MCHC 30.3 L RDW 15.8 H Plt Count 101 L APTT D-Dimer BUN 22 H Glucose 119 H Plasma Lactic Acid Srinivasa Albumin 3.4 L Urine Protein 2+ H Urine Blood Moderate H Ur Leukocyte Esterase Large H Urine RBC 93 H Urine WBC 74 H Urine Bacteria Rare H Urine Mucus Occasional H 04/24/23 04/24/23 16:57 18:29 MCHC RDW Plt Count APTT 19.7 L D-Dimer 2.31 H BUN Glucose Plasma Lactic Acid Srinivasa 2.1 H* Albumin Urine Protein Urine Blood Ur Leukocyte Esterase Urine RBC Urine WBC Urine Bacteria Urine Mucus - Diagnostic Findings Chest x-ray: image reviewed CT scan - chest: image reviewed U/S of Legs: image reviewed Assessment and Plan Assessment: Shortness of breath, consistent with fluid overload, given the x-ray changes, lower extremity edema, and elevated BNP. Probable cellulitis, bilateral lower extremities. No evidence of pulmonary embolism or DVT. Morbid obesity. History of diabetes mellitus. History of vitamin D deficiency. Prior history of DVT. History of osteoarthritis. History of pneumonia. History of kidney stones. Stress urinary incontinence. Plan: Plan dated 04/25/2023. The patient was placed on Rocephin, for suspected cellulitis. She may also have a urinary tract infection. She should receive diuretics, for her shortness of breath, and findings consistent with CHF. The patient has no history of pulmonary disease. We will continue to follow. She's currently on 2 L. Labs, x-rays, and medications are reviewed. Prognosis is guarded. Time with Patient: Greater than 30
[2023-04-25] MEDS: traMADol 50 MG TAB PO PRN (17:38)
[2023-04-25] MEDS: ceFAZolin 3 GM in SODIUM CHLORIDE 0.9% 100 ML IVPB SCH (18:17)
[2023-04-25 20:12] LABS: Glucose,Whole Blood 181 mg/dL (70-110)
[2023-04-25] MEDS: ASPIRIN 81 MG PO SCH (20:13)
[2023-04-25] MEDS: ACETAMINOPHEN TAB 325 MG TAB PO PRN (20:13)
[2023-04-25] MEDS: OXYBUTYNIN 10 MG TAB.ER.24 PO SCH (20:14)
[2023-04-25] MEDS: metFORMIN 500 MG TAB PO SCH (20:14)
[2023-04-25] MEDS: CHOLECALCIFEROL 25 MCG (1000 IU) TABLET PO SCH (20:14)
--- NOTE | 2023-04-25 21:59 | P.CONS ---
History of Present Illness - Reason for Consult Consult date: 04/25/23 Cellulitis, UTI Requesting physician: Pat Angulo - Chief Complaint Increasing swelling redness to bilateral lower extremity x 2 weeks - History of Present Illness Patient is a 72-year-old female with a past medical history significant for diabetes mellitus DVT osteoarthritis pneumonia patient was brought into the hospital for evaluation of increasing swelling to bilateral lower extremity apparently has been getting worse over the last 2 weeks with progressive swelling to the legs and also has developed erythema and some superficial ulceration from ruptured blister, patient complaining of pain to the lower extremity to be sharp moderate intensity without radiation patient also complaining of increasing shortness of breath on minimal exertion patient denies having any chest pain cough or sputum production no nausea vomiting no abdominal pain or any diarrhea patient on presentation to the hospital was afebrile and no fever was recorded subsequently patient was mildly tachycardic patient was mildly hypoxic requiring supplemental oxygen patient did have white count of 6.6 creatinine 0.69 lactic acid was 2.1 liver enzymes are normal urine was positive COVID testing was negative patient did have a chest x-ray mild exacerbation of his pulmonary edema presumably cardiac etiology CT angiogram of the chest no PE scattered reticular infiltrate patient was started on Rocephin concerning for possible UTI with a positive UA however the patient do not have significant urinary symptom infectious disease was consulted for further management of antibiotic therapy Review of Systems Positive point and negatives has been mentioned in the HPI, complete review of systems was performed and all other systems are negative Past Medical History Past Medical History: Diabetes Mellitus, Deep Vein Thrombosis (DVT), Eye Disorder, Osteoarthritis (OA), Pneumonia Additional Past Medical History / Comment(s): Seasonal allergies, recent congestions and also bladder infection, finishing po AB Rx. Macular degeneration, Rt eye worse. Edema in legs, hx water blisters, wears jobst stockings. kidney stones. Hx blood clot in leg History of Any Multi-Drug Resistant Organisms: None Reported Past Surgical History: Hysterectomy, Tubal Ligation Additional Past Surgical History / Comment(s): Multiple Kidney stone removals, LITHOTRIPSY. Blood clot removal left thigh, placed stent lt groin 2012 est. Past Anesthesia/Blood Transfusion Reactions: Previous Problems w/ Anesthesia Additional Past Anesthesia/Blood Transfusion Reaction / Comm: difficulty with breathing when waking up from previous kidney stone surgery x1 Past Psychological History: No Psychological Hx Reported Smoking Status: Former smoker - Past Family History Mother Family Medical History: Cancer Additional Family Medical History / Comment(s): colon cancer Father Family Medical History: Cancer Additional Family Medical History / Comment(s): lung cancer Sister(s) Family Medical History: Cancer Additional Family Medical History / Comment(s): breast cancer Brother(s) Family Medical History: Cancer, Pulmonary Embolus Daughter(s) Additional Family Medical History / Comment(s): daughter developed blood clot to shoulder and neck after IV PICC line insertion. granddaughter hx MTHFR with blood clot to groin Medications and Allergies Home Medications Medication Instructions Recorded Confirmed Type Acetaminophen [Tylenol 8 Hour] 650 mg PO Q8H PRN 12/01/18 04/24/23 History Albuterol Sulfate [Proair Hfa] 2 puff INHALATION RT-Q6H PRN 12/01/18 04/24/23 History Aspirin EC [Ecotrin Low Dose] 81 mg PO BID 12/01/18 04/24/23 History metFORMIN HCL [Glucophage] 500 mg PO BID 12/01/18 04/24/23 History Cholecalciferol [Vitamin D3 (25 25 mcg PO BID 04/24/23 04/24/23 History Mcg = 1000 Iu)] Tolterodine ER [Detrol LA] 4 mg PO HS 04/24/23 04/24/23 History traMADol HCl [Ultram] 50 mg PO TID PRN 04/24/23 04/24/23 History Allergies Allergy/AdvReac Type Severity Reaction Status Date / Time amoxicillin Allergy Rash/Hives Verified 04/24/23 18:42 dill weed Allergy Rash/Hives Uncoded 04/24/23 15:42 Physical Exam Vitals: Vital Signs Temp Pulse Pulse Resp BP Pulse Ox 04/25/23 07:56 95 18 122/63 96 04/25/23 04:00 103 H 103 H 14 143/79 94 L 04/25/23 00:00 96 18 138/70 94 L 04/24/23 22:57 97.5 F L 106 H 18 130/76 94 L 04/24/23 20:06 98.0 F 93 20 126/79 96 04/24/23 18:26 94 20 143/101 93 L 04/24/23 15:27 98.4 F 100 20 135/76 93 L Intake and Output 04/24/23 04/25/23 04/25/23 22:59 06:59 14:59 Output Total 1400 2600 Balance -1400 -2600 Output: Urine 1400 2600 Other: Voiding Method External Catheter Weight 137.892 kg GENERAL DESCRIPTION: Elderly female lying in bed, no distress. No tachypnea or accessory muscle of respiration use. HEENT: Shows Pallor , no scleral icterus. Oral mucous membrane is dry. NECK: Trachea central, no thyromegaly. LUNGS: Unlabored breathing. Decreased breath sound at the base. HEART: S1, S2, regular rate and rhythm. No loud murmur ABDOMEN: Soft, no tenderness , guarding or rigidity, no organomegaly EXTREMITIES: Diffuse swelling redness to bilateral lower extremity is warm and tender to touch SKIN: No rash, no masses palpable. NEUROLOGICAL: The patient is awake, alert, oriented x3, mood and affect normal. Results CBC & Chem 7: 04/24/23 16:57 04/24/23 16:57 Labs: Abnormal Lab Results - Last 24 Hours (Table) 04/24/23 04/24/23 04/24/23 Range/Units 16:57 16:57 16:57 MCHC 30.3 L (31.0-37.0) g/dL RDW 15.8 H (11.5-15.5) % Plt Count 101 L (150-450) k/uL APTT (22.0-30.0) sec D-Dimer (<0.60) mg/L FEU BUN 22 H (7-17) mg/dL Glucose 119 H (74-99) mg/dL Plasma Lactic Acid Srinivasa (0.7-2.0) mmol/L Albumin 3.4 L (3.5-5.0) g/dL Urine Protein 2+ H (Negative) Urine Blood Moderate H (Negative) Ur Leukocyte Esterase Large H (Negative) Urine RBC 93 H (0-5) /hpf Urine WBC 74 H (0-5) /hpf Urine Bacteria Rare H (None) /hpf Urine Mucus Occasional H (None) /hpf 04/24/23 04/24/23 Range/Units 16:57 18:29 MCHC (31.0-37.0) g/dL RDW (11.5-15.5) % Plt Count (150-450) k/uL APTT 19.7 L (22.0-30.0) sec D-Dimer 2.31 H (<0.60) mg/L FEU BUN (7-17) mg/dL Glucose (74-99) mg/dL Plasma Lactic Acid Srinivasa 2.1 H* (0.7-2.0) mmol/L Albumin (3.5-5.0) g/dL Urine Protein (Negative) Urine Blood (Negative) Ur Leukocyte Esterase (Negative) Urine RBC (0-5) /hpf Urine WBC (0-5) /hpf Urine Bacteria (None) /hpf Urine Mucus (None) /hpf Assessment and Plan (1) Bilateral lower leg cellulitis Current Visit: Yes Status: Acute Code(s): L03.116 - CELLULITIS OF LEFT LOWER LIMB; L03.115 - CELLULITIS OF RIGHT LOWER LIMB SNOMED Code(s): 791696170 (2) Penicillin allergy Current Visit: Yes Status: Acute Code(s): Z88.0 - ALLERGY STATUS TO PENICILLIN SNOMED Code(s): 89434776 Plan: 1patient presented to hospital with increasing swelling to bilateral lower extremity patient did have evidence of erythema warmth and tenderness to touch concerning for cellulitis likely from gram-positive skin poli such as trapped less likely MRSA or gram-negative infection 2-positive UA but no urinary symptoms more likely asymptomatic bacteriuria 3-we will discontinue Rocephin 4-apply Matthias wrap to both extremities from just about her toes to below the knee 5-start the patient cefazolin 2 g every 8 hours We will follow on clinical condition and cultures to further adjust medication if needed Thank you for this consultation we will follow the patient along with you Dictation was produced using [employer] dictation software. please excuse any grammatical, word or spelling errors. Time with Patient: Greater than 30
[2023-04-26] MEDS: traMADol 50 MG TAB PO PRN ×2 (00:26→13:39)
[2023-04-26] MEDS: ceFAZolin 3 GM in SODIUM CHLORIDE 0.9% 100 ML IVPB SCH ×4 (00:27→16:41)
[2023-04-26] MEDS: ACETAMINOPHEN TAB 325 MG TAB PO PRN (05:15)
[2023-04-26] MEDS: FUROSEMIDE 10 MG/ML 4 ML VIAL IV SCH ×2 (06:32→18:06)
[2023-04-26] MEDS: PANTOPRAZOLE 40 MG TABLET PO SCH (06:33)
--- NOTE | 2023-04-26 09:04 | P.HPIM ---
History of Present Illness H&P Date: 04/25/23 Chief Complaint: Increased shortness of breath bilateral leg swelling cellulitis UTI This is a 72-year-old female who presented with multiple complaints that have been occurring over the past few weeks. Patient reports she's had increased swelling to the lower extremity with weeping ulcers. Patient also reports she's had increased shortness of breath and cough. Patient also reports she's had tingling to hands bilaterally but has followed up with orthopedic surgeon out patient. Patient has a past medical history of diabetes mellitus, DVT, I disorder, osteoporosis, pneumonia and macular degeneration. Chest x-ray completed showing marked interstitial phase pulmonary edema presumably cardiogenic etiology. Lab work revealing elevated d-dimer 2.31. CT of the chest performed showing trace pericardial effusion, scattered reticular infiltrates in the right upper lobe and both lung bases consider viral or interstitial pneumonia. Pulmonary arterial tree is adequately opacified with contrast no large central emboli are visible there is under opacification of a small segmental branch in the left lower lobe laterally no discrete thrombus is visible. This is of questioned significance small segmental pulmonary embolism cannot be excluded. Aortic arch is mildly calcified but nondilated. Will consult pulmonary services. Venous Doppler completed no deep vein thrombosis identified. Troponins negative. BNP elevated at 5250. UA positive for urinary tract infection. At this time patient will be admitted cardiology pulmonary service is consulted. Bilateral lower extremities noted for cellulitis. Infectious disease service is consulted patient started on IV antibiotics. 2-D echo ordered. COVID-19 negative. Patient started on IV Lasix Review of Systems Please refer to HPI otherwise unremarkable Past Medical History Past Medical History: Diabetes Mellitus, Deep Vein Thrombosis (DVT), Eye Disorder, Osteoarthritis (OA), Pneumonia Additional Past Medical History / Comment(s): Seasonal allergies, recent congestions and also bladder infection, finishing po AB Rx. Macular degeneration, Rt eye worse. Edema in legs, hx water blisters, wears jobst stockings. kidney stones. Hx blood clot in leg History of Any Multi-Drug Resistant Organisms: None Reported Past Surgical History: Hysterectomy, Tubal Ligation Additional Past Surgical History / Comment(s): Multiple Kidney stone removals, LITHOTRIPSY. Blood clot removal left thigh, placed stent lt groin 2012 est. Past Anesthesia/Blood Transfusion Reactions: Previous Problems w/ Anesthesia Additional Past Anesthesia/Blood Transfusion Reaction / Comment(s): difficulty with breathing when waking up from previous kidney stone surgery x1 Past Psychological History: No Psychological Hx Reported Smoking Status: Former smoker - Past Family History Mother Family Medical History: Cancer Additional Family Medical History / Comment(s): colon cancer Father Family Medical History: Cancer Additional Family Medical History / Comment(s): lung cancer Sister(s) Family Medical History: Cancer Additional Family Medical History / Comment(s): breast cancer Brother(s) Family Medical History: Cancer, Pulmonary Embolus Daughter(s) Additional Family Medical History / Comment(s): daughter developed blood clot to shoulder and neck after IV PICC line insertion. granddaughter hx MTHFR with blood clot to groin Medications and Allergies Home Medications Medication Instructions Recorded Confirmed Type Acetaminophen [Tylenol 8 Hour] 650 mg PO Q8H PRN 12/01/18 04/24/23 History Albuterol Sulfate [Proair Hfa] 2 puff INHALATION RT-Q6H PRN 12/01/18 04/24/23 History Aspirin EC [Ecotrin Low Dose] 81 mg PO BID 12/01/18 04/24/23 History metFORMIN HCL [Glucophage] 500 mg PO BID 12/01/18 04/24/23 History Cholecalciferol [Vitamin D3 (25 25 mcg PO BID 04/24/23 04/24/23 History Mcg = 1000 Iu)] Tolterodine ER [Detrol LA] 4 mg PO HS 04/24/23 04/24/23 History traMADol HCl [Ultram] 50 mg PO TID PRN 04/24/23 04/24/23 History Allergies Allergy/AdvReac Type Severity Reaction Status Date / Time amoxicillin Allergy Rash/Hives Verified 04/24/23 18:42 dill weed Allergy Rash/Hives Uncoded 04/24/23 15:42 Physical Exam Vitals: Vital Signs Temp Pulse Pulse Resp BP Pulse Ox 04/25/23 07:56 95 18 122/63 96 04/25/23 04:00 103 H 103 H 14 143/79 94 L 04/25/23 00:00 96 18 138/70 94 L 04/24/23 22:57 97.5 F L 106 H 18 130/76 94 L 04/24/23 20:06 98.0 F 93 20 126/79 96 04/24/23 18:26 94 20 143/101 93 L 04/24/23 15:27 98.4 F 100 20 135/76 93 L Intake and Output 04/24/23 04/25/23 04/25/23 22:59 06:59 14:59 Output Total 1400 1500 Balance -1400 -1500 Output: Urine 1400 1500 Other: Voiding Method External Catheter Weight 137.892 kg Head normocephalic Neck supple Lungs clear to auscultation bilaterally no wheezing or crackles Heart regular rate and rhythm S1-S2, no rub or gallop Abdomen is soft nontender nondistended positive bowel sounds no hepatosplenomegaly Extremities bilateral lower extremities erythema with open ulcers Neuro alert and orientated to 3 Results CBC & Chem 7: 04/24/23 16:57 04/24/23 16:57 Labs: Abnormal Lab Results - Last 24 Hours (Table) 04/24/23 04/24/23 04/24/23 Range/Units 16:57 16:57 16:57 MCHC 30.3 L (31.0-37.0) g/dL RDW 15.8 H (11.5-15.5) % Plt Count 101 L (150-450) k/uL APTT (22.0-30.0) sec D-Dimer (<0.60) mg/L FEU BUN 22 H (7-17) mg/dL Glucose 119 H (74-99) mg/dL Plasma Lactic Acid Srinivasa (0.7-2.0) mmol/L Albumin 3.4 L (3.5-5.0) g/dL Urine Protein 2+ H (Negative) Urine Blood Moderate H (Negative) Ur Leukocyte Esterase Large H (Negative) Urine RBC 93 H (0-5) /hpf Urine WBC 74 H (0-5) /hpf Urine Bacteria Rare H (None) /hpf Urine Mucus Occasional H (None) /hpf 04/24/23 04/24/23 Range/Units 16:57 18:29 MCHC (31.0-37.0) g/dL RDW (11.5-15.5) % Plt Count (150-450) k/uL APTT 19.7 L (22.0-30.0) sec D-Dimer 2.31 H (<0.60) mg/L FEU BUN (7-17) mg/dL Glucose (74-99) mg/dL Plasma Lactic Acid Srinivasa 2.1 H* (0.7-2.0) mmol/L Albumin (3.5-5.0) g/dL Urine Protein (Negative) Urine Blood (Negative) Ur Leukocyte Esterase (Negative) Urine RBC (0-5) /hpf Urine WBC (0-5) /hpf Urine Bacteria (None) /hpf Urine Mucus (None) /hpf Assessment and Plan Assessment: 1. Shortness of breath 2. CHF exacerbation. Noted elevated BNP. 2-D echo ordered patient started on IV Lasix 3. Elevated d-dimer. CTA performed negative venous Doppler 4. Possible pneumonia. Pulmonary service is consulted 5. Urinary tract infection urine culture ordered 6. Lower extremity cellulitis. Patient started on IV antibiotics infectious disease service is consulted 7. History of diabetes mellitus 8. History of DVT 9. History of pneumonia 10. History of macular degeneration DVT prophylaxis Lovenox. GI prophylaxis Protonix Cardiology, pulmonary and infectious disease service is consulted Patient started on IV Lasix Patient started on IV antibiotic Blood and urine cultures ordered Repeat labs ordered 2-D echo ordered Time with Patient: Greater than 30 (Greater than 60% of the total time spent in counseling and coordination of care)
[2023-04-26] MEDS: metFORMIN 500 MG TAB PO SCH ×2 (09:14→20:50)
[2023-04-26] MEDS: ASPIRIN 81 MG PO SCH ×2 (09:14→20:50)
[2023-04-26] MEDS: CHOLECALCIFEROL 25 MCG (1000 IU) TABLET PO SCH ×2 (09:14→20:50)
[2023-04-26] MEDS: ENOXAPARIN 40 MG/0.4 ML SYRINGE SQ SCH (09:15)
--- NOTE | 2023-04-26 09:41 | P.PN ---
Subjective Progress Note Date: 04/26/23 Lorene Palma, is a 72-year-old female who presented with multiple complaints that have been occurring over the past few weeks. Patient reports she's had increased swelling to the lower extremity with weeping ulcers. Patient also reports she's had increased shortness of breath and cough. Patient also reports she's had tingling to hands bilaterally but has followed up with orthopedic surgeon outpatient. Patient has a past medical history of diabetes mellitus, DVT, I disorder, osteoporosis, pneumonia and macular degeneration. Chest x-ray completed showing marked interstitial phase pulmonary edema presumably cardiogenic etiology. Lab work revealing elevated d-dimer 2.31. CT of the chest performed showing trace pericardial effusion, scattered reticular infiltrates in the right upper lobe and both lung bases consider viral or interstitial pneumonia. Pulmonary arterial tree is adequately opacified with contrast no large central emboli are visible there is under opacification of a small segmental branch in the left lower lobe laterally no discrete thrombus is visible. This is of questioned significance small segmental pulmonary embolism cannot be excluded. Aortic arch is mildly calcified but nondilated. Will consult pulmonary services. Venous Doppler completed no deep vein thrombosis identified. Troponins negative. BNP elevated at 5250. UA positive for urinary tract infection. At this time patient will be admitted cardiology pulmonary service is consulted. Bilateral lower extremities noted for cellulitis. Infectious disease service is consulted patient started on IV antibiotics. 2-D echo ordered. COVID-19 negative. Patient started on IV Lasix On 04/26/2023 patient was seen and examined on the telemetry floor she is alert and oriented 3 in no apparent distress, she is complaining of bilateral lower extremity pain, site of cellulitis and ulcers, she is also complaining of left shoulder pain and shortness of breath with any activity, otherwise she denies any complaints there is no fever or chills no headache or dizziness no chest pain no cough no nausea or vomiting no abdominal pain no diarrhea no blood in the stools no burning with urination no frequency or urgency and no hematuria. At this time awaiting further recommendation from cardiology. Patient is maintained on IV antibiotic for bilateral lower extremity cellulitis with ulcers, awaiting further input from infectious disease. Objective - Vital Signs Vital signs: Vital Signs Temp 97.9 F 04/26/23 04:00 Pulse 99 04/26/23 04:00 Resp 20 04/26/23 04:00 BP 120/72 04/26/23 04:00 Pulse Ox 92 L 04/26/23 04:00 FiO2 Intake & Output 04/25/23 04/26/23 04/26/23 18:59 06:59 18:59 Output Total 2600 Balance -2600 Weight 137.892 kg Output: Urine 2600 Other: Voiding Method External Catheter - Exam In general patient is alert and oriented x 3 in no distress HEENT head normocephalic and atraumatic Neck is supple no JVD no goiter no lymphadenopathy no carotid bruit Chest examination is clear to auscultation no crackles no wheezing Cardiac exam reveals regular heart sounds S1 and S2 no gallops no murmurs Abdomen is soft nontender no organomegaly with normal bowel sounds Extremity exam reveals bilateral pretibial erythema with superficial ulcers and 2+ edema Neurological examination reveals no gross focal deficits - Labs CBC & Chem 7: 04/24/23 16:57 04/24/23 16:57 Labs: Abnormal Lab Results - Last 24 Hours (Table) 04/25/23 Range/Units 20:11 POC Glucose (mg/dL) 181 H (70-110) mg/dL Microbiology - Last 24 Hours (Table) 04/24/23 20:01 Blood Culture - Preliminary Blood 04/24/23 19:51 Blood Culture - Preliminary Blood Assessment and Plan Assessment: 1. Shortness of breath 2. CHF exacerbation. Noted elevated BNP. 2-D echo ordered patient started on IV Lasix 3. Elevated d-dimer. CTA performed negative venous Doppler 4. Possible pneumonia. Pulmonary service is consulted 5. Urinary tract infection urine culture ordered 6. Lower extremity cellulitis. Patient started on IV antibiotics infectious disease service is consulted 7. History of diabetes mellitus 8. History of DVT 9. History of pneumonia 10. History of macular degeneration DVT prophylaxis Lovenox. GI prophylaxis Protonix Cardiology, pulmonary and infectious disease service is consulted Patient started on IV Lasix Patient started on IV antibiotic Blood and urine cultures ordered Repeat labs ordered 2-D echo ordered
[2023-04-26] MEDS: HYDROmorphone 0.5 MG/0.5 ML SYRINGE IVP PRN (10:08)
--- NOTE | 2023-04-26 11:25 | P.PN ---
Subjective Progress Note Date: 04/26/23 Principal diagnosis: Shortness of breath and leg edema. Pulmonary consult dated 04/25/2023. 72-year-old female seen in the emergency department, room 15. She's here with her . She apparently presented to the emergency department, on April 24, with multiple complaints including leg swelling, shortness of breath, cough, and generally just not feeling well. She also has some tingling to her hands bilaterally, and apparently has been seen by one of the hand surgeons. The patient is laying flat in bed. She is on a couple liters of oxygen. She's not receiving any IV fluids. She tells me that she has cellulitis of the lower extremities. She is a rather large woman. She also tells me that her only major medical problem is diabetes mellitus. Although, she apparently has a history of DVT, osteoarthritis, and pneumonia. She also has a previous history of kidney stones, status post lithotripsy. Current labs include a white count 6.6, hemoglobin 12.9, hematocrit 42.6, and a platelet count of 101,000. D-dimer is 2.31. Venous blood gases showed CO2 49 and a pH is 7.36. Sodium 140, potassium 4.7, chlorides 105, CO2 25, BUN 22, creatinine 0.69. The N-terminal proBNP is elevated at 5250. Troponins were negative 2. Urine showed 2+ protein and moderate blood and large leukocyte esterase, 93 RBCs 74 WBCs, rare bacteria, and occasional mucus. Testing for coronavirus was negative. Chest x- ray showed changes consistent with pulmonary edema/fluid overload. CT angiogram was negative for pulmonary embolism. Doppler of the lower semis was negative for DVT. Progress note dated 04/26/2023. 72-year-old obese female seen yesterday in the emergency department. Today, she is seen in room 368. The patient's currently on 3 L of oxygen. She is rec eiving Lasix and her fluid overload, and Ancef, for her lower extremity edema. Her lower extremity edema is a bit better today. She does feel a bit better today, less short of breath. Current laboratory data includes a glucose of 181. Testing for harper virus was negative. Troponin was less than 0.012, 2. Objective - Vital Signs Vital signs: Vital Signs Temp 97.6 F 04/26/23 09:13 Pulse 98 04/26/23 09:13 Resp 17 04/26/23 09:13 BP 117/73 04/26/23 09:13 Pulse Ox 94 L 04/26/23 09:13 FiO2 Intake & Output 04/25/23 04/26/23 04/26/23 18:59 06:59 18:59 Intake Total 120 Output Total 2600 1600 Balance -2600 -1480 Weight 137.892 kg Intake: Oral 120 Output: Urine 2600 1600 Other: Voiding Method External Catheter External Catheter - Exam No acute distress, oriented 3. Currently on 2 L of oxygen. HEENT examination is grossly unremarkable. Neck supple. Full range of motion. No adenopathy thyromegaly or neck vein distention. Cardiovascular examination reveals regular rhythm rate. S1-S2 normal. No S3 or S4. No discernible murmur noted. Heart rate 88 bpm. Heart sounds are distant. Lungs reveal scattered crackles. Breath sounds equal. 2 L saturation is 94%. No rhonchi or wheezes. Abdomen obese, without masses or tenderness. Bowel sounds are noted. Extremities are intact. No cyanosis or clubbing. After significant bilateral lower extremity edema. Skin reveals cellulitic changes in the lower extremities. Neurologic examination is brief but nonfocal. - Labs CBC & Chem 7: 04/24/23 16:57 04/24/23 16:57 Labs: Abnormal Lab Results - Last 24 Hours (Table) 04/25/23 Range/Units 20:11 POC Glucose (mg/dL) 181 H (70-110) mg/dL Microbiology - Last 24 Hours (Table) 04/24/23 20:01 Blood Culture - Preliminary Blood 04/24/23 19:51 Blood Culture - Preliminary Blood Assessment and Plan Assessment: Shortness of breath, consistent with fluid overload, given the x-ray changes, lower extremity edema, and elevated BNP. Probable cellulitis, bilateral lower extremities. No evidence of pulmonary embolism or DVT. Morbid obesity. History of diabetes mellitus. History of vitamin D deficiency. Prior history of DVT. History of osteoarthritis. History of pneumonia. History of kidney stones. Stress urinary incontinence. Plan: Plan dated 04/25/2023. The patient was placed on Rocephin, for suspected cellulitis. She may also have a urinary tract infection. She should receive diuretics, for her shortness of breath, and findings consistent with CHF. The patient has no history of pulmonary disease. We will continue to follow. She's currently on 2 L. Labs, x-rays, and medications are reviewed. Prognosis is guarded. Plan dated 04/26/2023. Today, we did a consultation on this patient. We saw her in the emergency room. She was admitted with a diagnosis of lower extremity cellulitis, possible urinary tract infection, and fluid overload/CHF. She's currently receiving Ancef, and also receiving Lasix. Testing for coronavirus was negative. Clinically, she feels better. Saturations are more than adequate. We will cont inue to follow make recommendations along the way. Time with Patient: Less than 30
[2023-04-26 11:34] LABS: Anisocytosis Slight; Basophils % (A) 0 %; Eosinophils # (A) 0.5 k/uL (0-0.7); Eosinophils % (A) 7 %; HCT 42.4 % (34.0-46.0); HGB 12.7 gm/dL (11.4-16.0); Hypochromasia Marked; Lymphocytes # (A) 0.8 k/uL (1.0-4.8); Lymphocytes % (A) 11 %; MCH 29.4 pg (25.0-35.0); MCHC 29.9 g/dL (31.0-37.0); MCV 98.5 fL (80.0-100.0); Macrocytosis Slight; Monocytes # (A) 0.6 k/uL (0-1.0); Monocytes % (A) 9 %; Neutrophils # (A) 5.2 k/uL (1.3-7.7); Neutrophils % (A) 72 %; Platelet Count 195 k/uL (150-450); Poikilocytosis Slight; RBC 4.31 m/uL (3.80-5.40); WBC 7.2 k/uL (3.8-10.6)
[2023-04-26 11:58] LABS: ALT 10 U/L (4-34); AST 16 U/L (14-36); African American GFR (CKD) >90 (>60 ml/min/1.73 sqM); Albumin 3.4 g/dL (3.5-5.0); Alkaline Phosphatase 72 U/L (38-126); Anion Gap 10 mmol/L; Blood Urea Nitrogen 18 mg/dL (7-17); Calcium 8.5 mg/dL (8.4-10.2); Carbon Dioxide 32 mmol/L (22-30); Chloride 98 mmol/L (98-107); Glucose 143 mg/dL (74-99); Non-African American GFR(CKD) 87 (>60 ml/min/1.73 sqM); Potassium 3.9 mmol/L (3.5-5.1); Sodium 140 mmol/L (137-145); Total Bilirubin 0.6 mg/dL (0.2-1.3); Total Protein 6.3 g/dL (6.3-8.2)
--- NOTE | 2023-04-26 18:20 | P.PN ---
Subjective Progress Note Date: 04/26/23 Progress note: Patient is doing well from cardiac vessel standpoint. Blood pressure 122/72, BUN 18, creatinine 0.7, patient had good urine output on IV diuretic therapy. Echo cardiac rhythm showed an EF of 55%, normal left reduced systolic function, moderate MR, moderately dilated right atrium with RVSP of 68 mmHg consistent with pulmonary hypertension. PHYSICAL EXAM: VITAL SIGNS: Reviewed. GENERAL: Well-developed in no acute distress. HEENT: Head is normocephalic. Pupils are equal, round. Sclerae anicteric. Mucous membranes of the mouth are moist. Neck supple. No JVD or thyromegaly LUNGS: Respirations even and unlabored. Lungs essentially clear to auscultation bilaterally. HEART: Regular rate and rhythm. S1 and S2 heard. ABDOMEN: Soft. Nondistended. Nontender. EXTREMITIES: Normal range of motion. No clubbing or cyanosis. Peripheral pulses intact. Bilateral lower extremity edema noted. NEUROLOGIC: Awake and alert. Oriented x 3. ASSESSMENT: Bilateral pneumonia [id number] HFpEF exacerbation, currently euvolemic Moderate to severe coronary calcifications, per computed tomography scan Diabetes Morbid obesity: BMI 50.6 PLAN: Discontinue IV Lasix. Start Lasix 40 mg by mouth daily for next 5 days aspirin and statins Patient for benefit tomorrow from an outpatient left and right heart catheterization and sleep study. Continue treatment of pneumonia per primary medicine Further recommendations pending patient's course Objective - Vital Signs Vital signs: Vital Signs Temp 97.6 F 04/26/23 09:13 Pulse 95 04/26/23 15:21 Resp 19 04/26/23 15:21 BP 128/77 04/26/23 15:21 Pulse Ox 92 L 04/26/23 15:21 FiO2 Intake & Output 04/25/23 04/26/23 04/26/23 18:59 06:59 18:59 Intake Total 360 Output Total 2600 1999 Balance -2600 -1640 Weight 137.892 kg 137.892 kg Intake: Oral 360 Output: Urine 2600 1999 Other: Voiding Method External Catheter External Catheter - Labs CBC & Chem 7: 04/26/23 10:57 04/26/23 10:57 Labs: Abnormal Lab Results - Last 24 Hours (Table) 04/25/23 04/26/23 04/26/23 Range/Units 20:11 10:57 10:57 MCHC 29.9 L (31.0-37.0) g/dL RDW 16.0 H (11.5-15.5) % Lymphocytes # 0.8 L (1.0-4.8) k/uL Carbon Dioxide 32 H (22-30) mmol/L BUN 18 H (7-17) mg/dL Glucose 143 H (74-99) mg/dL POC Glucose (mg/dL) 181 H (70-110) mg/dL Albumin 3.4 L (3.5-5.0) g/dL Microbiology - Last 24 Hours (Table) 04/24/23 20:01 Blood Culture - Preliminary Blood 04/24/23 19:51 Blood Culture - Preliminary Blood
[2023-04-26] MEDS: METOPROLOL SUCCINATE (ER) 25 MG TAB.ER.24H PO SCH (18:34)
[2023-04-26] MEDS: ATORVASTATIN 20 MG TAB PO SCH (18:34)
[2023-04-26] MEDS: DAPAGLIFLOZIN PROPANEDIOL 10 MG TABLET PO SCH (18:54)
[2023-04-26 19:55] LABS: Glucose,Whole Blood 185 mg/dL (70-110)
[2023-04-26] MEDS: OXYBUTYNIN 10 MG TAB.ER.24 PO SCH (20:50)
--- NOTE | 2023-04-26 22:32 | P.PN ---
Subjective Progress Note Date: 04/26/23 Principal diagnosis: Reason for follow-up is bilateral lower extremity cellulitis Patient is a 72-year-old female with a past medical history significant for diabetes mellitus DVT osteoarthritis pneumonia patient was brought into the hospital for evaluation of increasing swelling to bilateral lower extremity, patient has been diagnosed with bilateral lower extremity c ellulitis. On today's evaluation that is 04/26/2020. Patient denies having any fever or any chills patient is breathing comfortably on 3 to nasal cannula oxygen patient denies having any chest pain or cough mention significant pain to lower extremity at the time of dressing changes but no drainage no nausea no vomiting no abdominal pain or diarrhea. Patient did have white count of 7.2, creatinine 0.70 cultures are currently pending. Objective - Vital Signs Vital signs: Vital Signs Temp 97.6 F 04/26/23 09:13 Pulse 107 H 04/26/23 12:22 Resp 18 04/26/23 12:22 BP 109/56 04/26/23 12:22 Pulse Ox 95 04/26/23 12:22 FiO2 Intake & Output 04/25/23 04/26/23 04/26/23 18:59 06:59 18:59 Intake Total 120 Output Total 2600 1600 Balance -2600 -1480 Weight 137.892 kg Intake: Oral 120 Output: Urine 2600 1600 Other: Voiding Method External Catheter External Catheter - Exam GENERAL DESCRIPTION: An elderly female lying in bed in no distress RESPIRATORY SYSTEM: Unlabored breathing , clear to auscultation anteriorly HEART: S1 S2 regular rate and rhythm , ABDOMEN: Soft , no tenderness EXTREMITIES: Bilateral lower extremity currently wrapped in Matthias wrap - Labs CBC & Chem 7: 04/26/23 10:57 04/26/23 10:57 Labs: Abnormal Lab Results - Last 24 Hours (Table) 04/25/23 04/26/23 04/26/23 Range/Units 20:11 10:57 10:57 MCHC 29.9 L (31.0-37.0) g/dL RDW 16.0 H (11.5-15.5) % Lymphocytes # 0.8 L (1.0-4.8) k/uL Carbon Dioxide 32 H (22-30) mmol/L BUN 18 H (7-17) mg/dL Glucose 143 H (74-99) mg/dL POC Glucose (mg/dL) 181 H (70-110) mg/dL Albumin 3.4 L (3.5-5.0) g/dL Microbiology - Last 24 Hours (Table) 04/24/23 20:01 Blood Culture - Preliminary Blood 04/24/23 19:51 Blood Culture - Preliminary Blood Assessment and Plan (1) Bilateral lower leg cellulitis Current Visit: Yes Status: Acute Code(s): L03.116 - CELLULITIS OF LEFT LOWER LIMB; L03.115 - CELLULITIS OF RIGHT LOWER LIMB SNOMED Code(s): 871270237 (2) Penicillin allergy Current Visit: Yes Status: Acute Code(s): Z88.0 - ALLERGY STATUS TO PENICILLIN SNOMED Code(s): 38502886 Plan: 1patient presented to hospital with increasing swelling to bilateral lower extremity patient did have evidence of erythema warmth and tenderness to touch concerning for cellulitis likely from gram-positive skin poli such as trapped less likely MRSA or gram-negative infection 2-positive UA but no urinary symptoms more likely asymptomatic bacteriuria 3we will continue the patient on cefazolin 2 g every 8 hours 4--Aquacel silver dressing to the open area followed by Matthias wrap dressing to be changed every 48 hours Questions concerns were answered Dictation was produced using [employer] dictation software. please excuse any grammatical, word or spelling errors. Time with Patient: Less than 30
[2023-04-27] MEDS: traMADol 50 MG TAB PO PRN ×2 (01:16→09:25)
[2023-04-27] MEDS: ceFAZolin 3 GM in SODIUM CHLORIDE 0.9% 100 ML IVPB SCH ×3 (01:16→17:13)
[2023-04-27 05:58] LABS: Glucose,Whole Blood 137 mg/dL (70-110)
[2023-04-27] MEDS: PANTOPRAZOLE 40 MG TABLET PO SCH (06:34)
[2023-04-27] MEDS: ASPIRIN 81 MG PO SCH ×2 (09:23→22:04)
[2023-04-27] MEDS: metFORMIN 500 MG TAB PO SCH ×2 (09:24→22:05)
[2023-04-27] MEDS: FUROSEMIDE 40 MG TAB PO SCH (09:24)
[2023-04-27] MEDS: CHOLECALCIFEROL 25 MCG (1000 IU) TABLET PO SCH ×2 (09:24→22:05)
[2023-04-27] MEDS: ENOXAPARIN 40 MG/0.4 ML SYRINGE SQ SCH (09:24)
[2023-04-27] MEDS: DAPAGLIFLOZIN PROPANEDIOL 10 MG TABLET PO SCH (09:24)
[2023-04-27] MEDS: METOPROLOL SUCCINATE (ER) 25 MG TAB.ER.24H PO SCH ×2 (09:25→22:05)
[2023-04-27] MEDS: ATORVASTATIN 20 MG TAB PO SCH (09:27)
[2023-04-27] MEDS ORDERED: bisacodyL 5 MG TABLET.DR PO PRN (09:41)
--- NOTE | 2023-04-27 10:19 | P.PN ---
Subjective Progress Note Date: 04/27/23 Lorene Palma, is a 72-year-old female who presented with multiple complaints that have been occurring over the past few weeks. Patient reports she's had increased swelling to the lower extremity with weeping ulcers. Patient also reports she's had increased shortness of breath and cough. Patient also reports she's had tingling to hands bilaterally but has followed up with orthopedic surgeon outpatient. Patient has a past medical history of diabetes mellitus, DVT, I disorder, osteoporosis, pneumonia and macular degeneration. Chest x-ray completed showing marked interstitial phase pulmonary edema presumably cardiogenic etiology. Lab work revealing elevated d-dimer 2.31. CT of the chest performed showing trace pericardial effusion, scattered reticular infiltrates in the right upper lobe and both lung bases consider viral or interstitial pneumonia. Pulmonary arterial tree is adequately opacified with contrast no large central emboli are visible there is under opacification of a small segmental branch in the left lower lobe laterally no discrete thrombus is visible. This is of questioned significance small segmental pulmonary embolism cannot be excluded. Aortic arch is mildly calcified but nondilated. Will consult pulmonary services. Venous Doppler completed no deep vein thrombosis identified. Troponins negative. BNP elevated at 5250. UA positive for urinary tract infection. At this time patient will be admitted cardiology pulmonary service is consulted. Bilateral lower extremities noted for cellulitis. Infectious disease service is consulted patient started on IV antibiotics. 2-D echo ordered. COVID-19 negative. Patient started on IV Lasix On 04/26/2023 patient was seen and examined on the telemetry floor she is alert and oriented 3 in no apparent distress, she is complaining of bilateral lower extremity pain, site of cellulitis and ulcers, she is also complaining of left shoulder pain and shortness of breath with any activity, otherwise she denies any complaints there is no fever or chills no headache or dizziness no chest pain no cough no nausea or vomiting no abdominal pain no diarrhea no blood in the stools no burning with urination no frequency or urgency and no hematuria. At this time awaiting further recommendation from cardiology. Patient is maintained on IV antibiotic for bilateral lower extremity cellulitis with ulcers, awaiting further input from infectious disease. On 04/27/2023 patient alert and oriented 3. Patient reports improvement with lower infection many pain. Patient remains on IV cefazolin. Tessalon pearls added for cough. Pulmonary cardiology and infectious disease service is consulted. Vital signs temp 98.3, heart rate 97, respiratory rate 18, blood pressure 119/63 with pulse ox of 91% on 2 L Objective - Vital Signs Vital signs: Vital Signs Temp 98.3 F 04/27/23 08:35 Pulse 97 04/27/23 08:35 Resp 18 04/27/23 08:35 BP 119/63 04/27/23 08:35 Pulse Ox 91 L 04/27/23 08:35 FiO2 Intake & Output 04/26/23 04/27/23 04/27/23 18:59 06:59 18:59 Intake Total 360 236 Output Total 2450 1475 Balance -2089 -1474 236 Weight 137.892 kg Intake: Oral 360 236 Output: Urine 2450 1475 Other: Voiding Method External Catheter External Catheter - Exam In general patient is alert and oriented x 3 in no distress HEENT head normocephalic and atraumatic Neck is supple no JVD no goiter no lymphadenopathy no carotid bruit Chest examination is clear to auscultation no crackles no wheezing Cardiac exam reveals regular heart sounds S1 and S2 no gallops no murmurs Abdomen is soft nontender no organomegaly with normal bowel sounds Extremity exam reveals bilateral pretibial erythema with superficial ulcers and 2+ edema Neurological examination reveals no gross focal deficits - Labs CBC & Chem 7: 04/26/23 10:57 04/26/23 10:57 Labs: Abnormal Lab Results - Last 24 Hours (Table) 04/26/23 04/26/23 04/26/23 Range/Units 10:57 10:57 19:54 MCHC 29.9 L (31.0-37.0) g/dL RDW 16.0 H (11.5-15.5) % Lymphocytes # 0.8 L (1.0-4.8) k/uL Carbon Dioxide 32 H (22-30) mmol/L BUN 18 H (7-17) mg/dL Glucose 143 H (74-99) mg/dL POC Glucose (mg/dL) 185 H (70-110) mg/dL Albumin 3.4 L (3.5-5.0) g/dL 04/27/23 Range/Units 05:57 MCHC (31.0-37.0) g/dL RDW (11.5-15.5) % Lymphocytes # (1.0-4.8) k/uL Carbon Dioxide (22-30) mmol/L BUN (7-17) mg/dL Glucose (74-99) mg/dL POC Glucose (mg/dL) 137 H (70-110) mg/dL Albumin (3.5-5.0) g/dL Microbiology - Last 24 Hours (Table) 04/24/23 20:01 Blood Culture - Preliminary Blood 04/24/23 19:51 Blood Culture - Preliminary Blood Assessment and Plan Assessment: 1. Shortness of breath 2. CHF exacerbation. Noted elevated BNP. 2-D echo ordered patient started on IV Lasix 3. Elevated d-dimer. CTA performed negative venous Doppler 4. Possible pneumonia. Pulmonary service is consulted 5. Urinary tract infection urine culture ordered 6. Lower extremity cellulitis. Patient started on IV antibiotics infectious disease service is consulted 7. History of diabetes mellitus 8. History of DVT 9. History of pneumonia 10. History of macular degeneration DVT prophylaxis Lovenox. GI prophylaxis Protonix Cardiology, pulmonary and infectious disease service is consulted Patient started on IV Lasix Patient started on IV antibiotic Blood and urine cultures ordered Repeat labs ordered 2-D echo ordered
[2023-04-27] MEDS ORDERED: DEXTROSE 50% SYRINGE 50 ML IVP PRN ×2 (11:05)
[2023-04-27] MEDS ORDERED: ONDANSETRON 4 MG/2 ML VIAL IVP PRN (11:17)
--- NOTE | 2023-04-27 11:29 | P.PN ---
Subjective Progress Note Date: 04/27/23 Principal diagnosis: Shortness of breath and leg edema. Pulmonary consult dated 04/25/2023. 72-year-old female seen in the emergency department, room 15. She's here with her . She apparently presented to the emergency department, on April 24, with multiple complaints including leg swelling, shortness of breath, cough, and generally just not feeling well. She also has some tingling to her hands bilaterally, and apparently has been seen by one of the hand surgeons. The patient is laying flat in bed. She is on a couple liters of oxygen. She's not receiving any IV fluids. She tells me that she has cellulitis of the lower extremities. She is a rather large woman. She also tells me that her only major medical problem is diabetes mellitus. Although, she apparently has a history of DVT, osteoarthritis, and pneumonia. She also has a previous history of kidney stones, status post lithotripsy. Current labs include a white count 6.6, hemoglobin 12.9, hematocrit 42.6, and a platelet count of 101,000. D-dimer is 2.31. Venous blood gases showed CO2 49 and a pH is 7.36. Sodium 140, potassium 4.7, chlorides 105, CO2 25, BUN 22, creatinine 0.69. The N-terminal proBNP is elevated at 5250. Troponins were negative 2. Urine showed 2+ protein and moderate blood and large leukocyte esterase, 93 RBCs 74 WBCs, rare bacteria, and occasional mucus. Testing for coronavirus was negative. Chest x- ray showed changes consistent with pulmonary edema/fluid overload. CT angiogram was negative for pulmonary embolism. Doppler of the lower semis was negative for DVT. Progress note dated 04/26/2023. 72-year-old obese female seen yesterday in the emergency department. Today, she is seen in room 368. The patient's currently on 3 L of oxygen. She is rec eiving Lasix and her fluid overload, and Ancef, for her lower extremity edema. Her lower extremity edema is a bit better today. She does feel a bit better today, less short of breath. Current laboratory data includes a glucose of 181. Testing for harper virus was negative. Troponin was less than 0.012, 2. Progress note dated 04/27/2023. 73-year-old female initially seen in the emergency department, but is seen in room 368 today. She continues on oxygen at 3 L. No IV fluids. For her cough, we ordered some Tessalon Perles. In addition, she continues on Ancef for her bilateral lower extremity cellulitis. Also, she is receiving diuretics, for her pulmonary edema. Today's laboratory data includes a glucose of 137. Testing for harper virus was negative. Blood cultures are negative. Objective - Vital Signs Vital signs: Vital Signs Temp 98.3 F 04/27/23 08:35 Pulse 97 04/27/23 08:35 Resp 18 04/27/23 08:35 BP 119/63 04/27/23 08:35 Pulse Ox 91 L 04/27/23 08:35 FiO2 Intake & Output 04/26/23 04/27/23 04/27/23 18:59 06:59 18:59 Intake Total 360 236 Output Total 2450 1475 Balance -2089 -1474 236 Weight 137.892 kg Intake: Oral 360 236 Output: Urine 2450 1475 Other: Voiding Method External Catheter External Catheter - Exam No acute distress, oriented 3. Currently on 3 L of oxygen. HEENT examination is grossly unremarkable. Neck supple. Full range of motion. No adenopathy thyromegaly or neck vein distention. Cardiovascular examination reveals regular rhythm rate. S1-S2 normal. No S3 or S4. No discernible murmur noted. Heart rate 91 bpm. Heart sounds are distant. Lungs reveal scattered crackles. Breath sounds equal. 3 L saturation is 95 %. No rhonchi or wheezes. Abdomen obese, without masses or tenderness. Bowel sounds are noted. Extremities are intact. No cyanosis or clubbing. After significant bilateral lower extremity edema. Her legs have been wrapped with BOGDAN bandages. Skin reveals cellulitic changes in the lower extremities. Neurologic examination is brief but nonfocal. - Labs CBC & Chem 7: 04/26/23 10:57 04/26/23 10:57 Labs: Abnormal Lab Results - Last 24 Hours (Table) 04/26/23 04/26/23 04/26/23 Range/Units 10:57 10:57 19:54 MCHC 29.9 L (31.0-37.0) g/dL RDW 16.0 H (11.5-15.5) % Lymphocytes # 0.8 L (1.0-4.8) k/uL Carbon Dioxide 32 H (22-30) mmol/L BUN 18 H (7-17) mg/dL Glucose 143 H (74-99) mg/dL POC Glucose (mg/dL) 185 H (70-110) mg/dL Albumin 3.4 L (3.5-5.0) g/dL 04/27/23 Range/Units 05:57 MCHC (31.0-37.0) g/dL RDW (11.5-15.5) % Lymphocytes # (1.0-4.8) k/uL Carbon Dioxide (22-30) mmol/L BUN (7-17) mg/dL Glucose (74-99) mg/dL POC Glucose (mg/dL) 137 H (70-110) mg/dL Albumin (3.5-5.0) g/dL Microbiology - Last 24 Hours (Table) 04/24/23 20:01 Blood Culture - Preliminary Blood 04/24/23 19:51 Blood Culture - Preliminary Blood Assessment and Plan Assessment: Shortness of breath, consistent with fluid overload, given the x-ray changes, lower extremity edema, and elevated BNP. Probable cellulitis, bilateral lower extremities. No evidence of pulmonary embolism or DVT. Morbid obesity. History of diabetes mellitus. History of vitamin D deficiency. Prior history of DVT. History of osteoarthritis. History of pneumonia. History of kidney stones. Stress urinary incontinence. Plan: Plan dated 04/25/2023. The patient was placed on Rocephin, for suspected cellulitis. She may also have a urinary tract infection. She should receive diuretics, for her shortness of breath, and findings consistent with CHF. The patient has no history of pulmonary disease. We will continue to follow. She's currently on 2 L. Labs, x-rays, and medications are reviewed. Prognosis is guarded. Plan dated 04/26/2023. Today, we did a consultation on this patient. We saw her in the emergency room. She was admitted with a diagnosis of lower extremity cellulitis, possible urinary tract infection, and fluid overload/CHF. She's currently receiving Ancef, and also receiving Lasix. Testing for coronavirus was negative. Clinically, she feels better. Saturations are more than adequate. We will continue to follow make recommendations along the way. Plan dated 04/27/2023. The patient appears to be relatively stable. Her breathing is improved. Her legs have been wrapped. She continues on Ancef, for her cellulitis. For her cough, we prescribed some Tessalon Perles. Labs, x-rays, and medications are reviewed. Overall, the patient appears to be improved. The patient continues o n diuretics. We will continue to follow make recommendations along the way. Prognosis is guarded. Time with Patient: Less than 30
--- NOTE | 2023-04-27 11:36 | P.PN ---
Progress Note - Text Progress Note Date: 04/27/23 Patient Name: Louie,Lorene Pltat Date of : 1950 Patient Status: Inpatient Attending Provider: Pat Angulo Date: 04/27/23 10:16 Initialization Date: 04/27/23 10:16 Subjective Progress Note Date: 04/27/23 Lorene Palma, is a 72-year-old female who presented with multiple complaints that have been occurring over the past few weeks. Patient reports she's had increased swelling to the lower extremity with weeping ulcers. Patient also reports she's had increased shortness of breath and cough. Patient also reports she's had tingling to hands bilaterally but has followed up with orthopedic surgeon outpatient. Patient has a past medical history of diabetes mellitus, DVT, I disorder, osteoporosis, pneumonia and macular degeneration. Chest x-ray completed showing marked interstitial phase pulmonary edema presumably cardiogenic etiology. Lab work revealing elevated d-dimer 2.31. CT of the chest performed showing trace pericardial effusion, scattered reticular infiltra lakshmi in the right upper lobe and both lung bases consider viral or interstitial pneumonia. Pulmonary arterial tree is adequately opacified with contrast no large central emboli are visible there is under opacification of a small segmental branch in the left lower lobe laterally no discrete thrombus is visible. This is of questioned significance small segmental pulmonary embolism cannot be excluded. Aortic arch is mildly calcified but nondilated. Will consult pulmonary services. Venous Doppler completed no deep vein thrombosis identified. Troponins negative. BNP elevated at 5250. UA positive for urinary tract infection. At this time patient will be admitted cardiology pulmonary service is consulted. Bilateral lower extremities noted for cellulitis. Infectious disease service is consulted patient started on IV antibiotics. 2-D echo ordered. COVID-19 negative. Patient started on IV Lasix On 04/26/2023 patient was seen and examined on the telemetry floor she is alert and oriented 3 in no apparent distress, she is complaining of bilateral lower extremity pain, site of cellulitis and ulcers, she is also complaining of left shoulder pain and shortness of breath with any activity, otherwise she denies any complaints there is no fever or chills no headache or dizziness no chest pain no cough no nausea or vomiting no abdominal pain no diarrhea no blood in the stools no burning with urination no frequency or urgency and no hematuria. At this time awaiting further recommendation from cardiology. Patient is maintained on IV antibiotic for bilateral lower extremity cellulitis with ulcers, awaiting further input from infectious disease. On 04/27/2023 patient alert and oriented 3. Patient reports improvement with lower infection many pain. Patient remains on IV cefazolin. Tessalon pearls added for cough. Pulmonary cardiology and infectious disease service is consulted. Vital signs temp 98.3, heart rate 97, respiratory rate 18, blood pressure 119/63 with pulse ox of 91% on 2 L Objective - Vital Signs Vital signs: Vital Signs Temp 98.3 F 04/27/23 08:35 Pulse 97 04/27/23 08:35 Resp 18 04/27/23 08:35 BP 119/63 04/27/23 08:35 Pulse Ox 91 L 04/27/23 08:35 FiO2 Intake & Output 04/26/23 04/27/23 04/27/23 18:59 06:59 18:59 Intake Total 360 236 Output Total 2450 1475 Balance -2089 236 Weight 137.892 kg Intake: Oral 360 236 Output: Urine 2450 1475 Other: Voiding Method External Catheter External Catheter - Exam In general patient is alert and oriented x 3 in no distress HEENT head normocephalic and atraumatic Neck is supple no JVD no goiter no lymphadenopathy no carotid bruit Chest examination is clear to auscultation no crackles no wheezing Cardiac exam reveals regular heart sounds S1 and S2 no gallops no murmurs Abdomen is soft nontender no organomegaly with normal bowel sounds Extremity exam reveals bilateral pretibial erythema with superficial ulcers and 2+ edema Neurological examination reveals no gross focal deficits - Labs CBC & Chem 7: 04/26/23 10:57 04/26/23 10:57 Labs: Abnormal Lab Results - Last 24 Hours (Table) 04/26/23 04/26/23 04/26/23 Range/Units 10:57 10:57 19:54 MCHC 29.9 L (31.0-37.0) g/dL RDW 16.0 H (11.5-15.5) % Lymphocytes # 0.8 L (1.0-4.8) k/uL Carbon Dioxide 32 H (22-30) mmol/L BUN 18 H (7-17) mg/dL Glucose 143 H (74-99) mg/dL POC Glucose (mg/dL) 185 H (70-110) mg/dL Albumin 3.4 L (3.5-5.0) g/dL 04/27/23 Range/Units 05:57 MCHC (31.0-37.0) g/dL RDW (11.5-15.5) % Lymphocytes # (1.0-4.8) k/uL Carbon Dioxide (22-30) mmol/L BUN (7-17) mg/dL Glucose (74-99) mg/dL POC Glucose (mg/dL) 137 H (70-110) mg/dL Albumin (3.5-5.0) g/dL Microbiology - Last 24 Hours (Table) 04/24/23 20:01 Blood Culture - Preliminary Blood 04/24/23 19:51 Blood Culture - Preliminary Blood Assessment and Plan Assessment: 1. Shortness of breath 2. CHF exacerbation. Noted elevated BNP. 2-D echo ordered patient started on IV Lasix 3. Elevated d-dimer. CTA performed negative venous Doppler 4. Possible pneumonia. Pulmonary service is consulted 5. Urinary tract infection urine culture ordered 6. Lower extremity cellulitis. Patient started on IV antibiotics infectious disease service is consulted 7. History of diabetes mellitus 8. History of DVT 9. History of pneumonia 10. History of macular degeneration DVT prophylaxis Lovenox. GI prophylaxis Protonix Cardiology, pulmonary and infectious disease service is consulted Patient started on IV Lasix Patient started on IV antibiotic Blood and urine cultures ordered Repeat labs ordered 2-D echo ordered
[2023-04-27 12:02] LABS: Glucose,Whole Blood 133 mg/dL (70-110)
[2023-04-27] MEDS: methylPREDNISolone SOD SUCCI 40 MG/ML 1 ML VIAL IV SCH ×2 (12:40→17:13)
[2023-04-27] MEDS: BENZONATATE 100 MG CAP PO SCH ×3 (12:41→22:05)
--- NOTE | 2023-04-27 13:37 | P.PN ---
Subjective Progress Note Date: 04/27/23 Principal diagnosis: Reason for follow-up is bilateral lower extremity cellulitis Patient is a 72-year-old female with a past medical history significant for diabetes mellitus DVT osteoarthritis pneumonia patient was brought into the hospital for evaluation of increasing swelling to bilateral lower extremity, patient has been diagnosed with bilateral lower extremity c ellulitis. On today's evaluation that is 04/27/2023 the patient denies any fever or any chills, the patient denies shortness of breath and is currently breathing comfortably on 2 L cannula oxygen, the patient denies any chest pain chest pain patient did have occasional cough with sputum production, the patient nausea/vomiting or diarrhea and no abdominal pain. Patient did have white count of 7.2, creatinine 0.70 as of 04/26/2023 cultures are currently pending. Objective - Vital Signs Vital signs: Vital Signs Temp 98.3 F 04/27/23 08:35 Pulse 97 04/27/23 08:35 Resp 18 04/27/23 08:35 BP 119/63 04/27/23 08:35 Pulse Ox 91 L 04/27/23 08:35 FiO2 Intake & Output 04/26/23 04/27/23 04/27/23 18:59 06:59 18:59 Intake Total 360 236 Output Total 2450 1475 900 Balance -3971 -0824 -027 Weight 137.892 kg Intake: Oral 360 236 Output: Urine 2450 1475 900 Other: Voiding Method External Catheter External Catheter - Exam GENERAL DESCRIPTION: An elderly female lying in bed in no distress RESPIRATORY SYSTEM: Unlabored breathing , clear to auscultation anteriorly HEART: S1 S2 regular rate and rhythm , ABDOMEN: Soft , no tenderness EXTREMITIES: Bilateral lower extremity currently wrapped in Matthias wrap - Labs CBC & Chem 7: 04/26/23 10:57 04/26/23 10:57 Labs: Abnormal Lab Results - Last 24 Hours (Table) 04/26/23 04/27/23 04/27/23 Range/Units 19:54 05:57 12:00 POC Glucose (mg/dL) 185 H 137 H 133 H (70-110) mg/dL Microbiology - Last 24 Hours (Table) 04/24/23 20:01 Blood Culture - Preliminary Blood 04/24/23 19:51 Blood Culture - Preliminary Blood Assessment and Plan (1) Bilateral lower leg cellulitis Current Visit: Yes Status: Acute Code(s): L03.116 - CELLULITIS OF LEFT LOWER LIMB; L03.115 - CELLULITIS OF RIGHT LOWER LIMB SNOMED Code(s): 784210779 (2) Penicillin allergy Current Visit: Yes Status: Acute Code(s): Z88.0 - ALLERGY STATUS TO PENICILLIN SNOMED Code(s): 84763356 Plan: 1patient presented to hospital with increasing swelling to bilateral lower extremity patient did have evidence of erythema warmth and tenderness to touch concerning for cellulitis likely from gram-positive skin poli such as trapped less likely MRSA or gram-negative infection 2-positive UA but no urinary symptoms more likely asymptomatic bacteriuria 3we will continue-Aquacel silver dressing to the open area followed by Matthias wrap dressing to be changed every 48 hours and reevaluate the legs at the time of dressing change tomorrow 4continue with the cefazolin and monitor clinical course closely Questions concerns were answered Dictation was produced using [employer] dictation software. please excuse any grammatical, word or spelling errors. Time with Patient: Less than 30
[2023-04-27 16:46] LABS: Glucose,Whole Blood 186 mg/dL (70-110)
--- NOTE | 2023-04-27 20:04 | P.PN ---
Subjective Progress Note Date: 04/27/23 Progress note: Patient is doing well from cardiac vessel standpoint. Blood pressure is stable on the current medical regimen. PHYSICAL EXAM: VITAL SIGNS: Reviewed. GENERAL: Well-developed in no acute distress. HEENT: Head is normocephalic. Pupils are equal, round. Sclerae anicteric. Mucous membranes of the mouth are moist. Neck supple. No JVD or thyromegaly LUNGS: Respirations even and unlabored. Lungs essentially clear to auscultation bilaterally. HEART: Regular rate and rhythm. S1 and S2 heard. ABDOMEN: Soft. Nondistended. Nontender. EXTREMITIES: Normal range of motion. No clubbing or cyanosis. Peripheral pulses intact. Bilateral lower extremity edema noted. NEUROLOGIC: Awake and alert. Oriented x 3. ASSESSMENT: Bilateral pneumonia [id number] HFpEF exacerbation, currently euvolemic Moderate to severe coronary calcifications, per computed tomography scan Diabetes Morbid obesity: BMI 50.6 PLAN: Continue Lasix 40 mg by mouth daily for next 5 days Continue Farxiga 10 mg daily Continue metoprolol 25 mg daily aspirin and statins Patient for benefit tomorrow from an outpatient left and right heart catheterization and sleep study. Continue treatment of pneumonia per primary medicine Patient is stable from cardiac vessel standpoint. At this time cardiology team will sign off. All questions were answered for the patient. Objective - Vital Signs Vital signs: Vital Signs Temp 98.5 F 04/27/23 15:32 Pulse 102 H 04/27/23 15:32 Resp 18 04/27/23 15:32 BP 101/55 04/27/23 15:32 Pulse Ox 92 L 04/27/23 15:32 FiO2 Intake & Output 04/27/23 04/27/23 04/28/23 06:59 18:59 06:59 Intake Total 354 Output Total 1475 1350 Balance -1475 -996 Intake: Oral 354 Output: Urine 1475 1350 Other: Voiding Method External Catheter External Catheter - Labs CBC & Chem 7: 04/26/23 10:57 04/26/23 10:57 Labs: Abnormal Lab Results - Last 24 Hours (Table) 04/26/23 04/27/23 04/27/23 Range/Units 10:57 05:57 12:00 POC Glucose (mg/dL) 137 H 133 H (70-110) mg/dL Uric Acid 8.9 H (3.7-7.4) mg/dL 04/27/23 Range/Units 16:45 POC Glucose (mg/dL) 186 H (70-110) mg/dL Uric Acid (3.7-7.4) mg/dL Microbiology - Last 24 Hours (Table) 04/24/23 20:01 Blood Culture - Preliminary Blood 04/24/23 19:51 Blood Culture - Preliminary Blood
[2023-04-27 20:56] LABS: Glucose,Whole Blood 206 mg/dL (70-110)
[2023-04-27] MEDS: OXYBUTYNIN 10 MG TAB.ER.24 PO SCH (22:04)
[2023-04-28] MEDS: traMADol 50 MG TAB PO PRN (00:35)
[2023-04-28] MEDS: ceFAZolin 3 GM in SODIUM CHLORIDE 0.9% 100 ML IVPB SCH ×3 (00:35→15:09)
[2023-04-28] MEDS: methylPREDNISolone SOD SUCCI 40 MG/ML 1 ML VIAL IV SCH ×3 (00:35→15:10)
[2023-04-28] MEDS: HYDROmorphone 0.5 MG/0.5 ML SYRINGE IVP PRN (00:59)
[2023-04-28 03:52] LABS: Glucose,Whole Blood 215 mg/dL (70-110)
[2023-04-28] MEDS ORDERED: FUROSEMIDE 10 MG/ML 4 ML VIAL IV STA (04:51)
[2023-04-28 06:16] LABS: Glucose,Whole Blood 193 mg/dL (70-110)
[2023-04-28] MEDS: PANTOPRAZOLE 40 MG TABLET PO SCH (06:18)
--- NOTE | 2023-04-28 07:11 | XR ---
EXAMINATION TYPE: XR chest 1V portable DATE OF EXAM: 04/28/2023 4:27 AM CLINICAL INDICATION:Female, 72 years old with history of dyspnea, low sats; PH[facility] COMPARISON: Chest radiographs from 04/24/2023 TECHNIQUE: XR chest 1V portable Frontal view of the chest. FINDINGS: Lungs/Pleura: There is no evidence of pleural effusion, focal consolidation, or pneumothorax. Pulmonary vascularity: Unremarkable. Heart/mediastinum: Cardiomediastinal silhouette is enlarged and stable. Musculoskeletal: No acute osseous pathology. Other findings: None IMPRESSION: Low lung volumes with a generalized hazy appearance which could represent atelectasis versus pulmonar y edema correlate with serum BNP.
[2023-04-28] MEDS: CHOLECALCIFEROL 25 MCG (1000 IU) TABLET PO SCH ×2 (08:04→20:48)
[2023-04-28] MEDS: ASPIRIN 81 MG PO SCH ×2 (08:04→20:48)
[2023-04-28] MEDS: metFORMIN 500 MG TAB PO SCH ×2 (08:04→20:54)
[2023-04-28] MEDS: DAPAGLIFLOZIN PROPANEDIOL 10 MG TABLET PO SCH (08:04)
[2023-04-28] MEDS: BENZONATATE 100 MG CAP PO SCH ×3 (08:04→20:48)
[2023-04-28] MEDS: ATORVASTATIN 20 MG TAB PO SCH (08:04)
[2023-04-28] MEDS: FUROSEMIDE 40 MG TAB PO SCH (08:05)
[2023-04-28] MEDS: ENOXAPARIN 40 MG/0.4 ML SYRINGE SQ SCH (08:05)
[2023-04-28] MEDS: METOPROLOL SUCCINATE (ER) 25 MG TAB.ER.24H PO SCH ×2 (08:05→20:48)
[2023-04-28 10:27] LABS: ALT 33 U/L (4-34); AST 139 U/L (14-36); African American GFR (CKD) 53 (>60 ml/min/1.73 sqM); Albumin 3.7 g/dL (3.5-5.0); Alkaline Phosphatase 91 U/L (38-126); Anion Gap 13 mmol/L; Blood Urea Nitrogen 34 mg/dL (7-17); Carbon Dioxide 31 mmol/L (22-30); Chloride 94 mmol/L (98-107); Glucose 209 mg/dL (74-99); Non-African American GFR(CKD) 46 (>60 ml/min/1.73 sqM); Sodium 138 mmol/L (137-145); Total Bilirubin 0.6 mg/dL (0.2-1.3); Total Protein 6.6 g/dL (6.3-8.2)
[2023-04-28 10:29] LABS: Calcium 8.7 mg/dL (8.4-10.2)
--- NOTE | 2023-04-28 10:48 | P.PN ---
Subjective Progress Note Date: 04/28/23 72-year-old female seen in the emergency department, room 15. She's here with her . She apparently presented to the emergency department, on April 24, with multiple complaints including leg swelling, shortness of breath, cough, and generally just not feeling well. She also has some tingling to her hands bilaterally, and apparently has been seen by one of the hand surgeons. The patient is laying flat in bed. She is on a couple liters of oxygen. She's not receiving any IV fluids. She tells me that she has cellulitis of the lower extremities. She is a rather large woman. She also tells me that her only major medical problem is diabetes mellitus. Although, she apparently has a his tory of DVT, osteoarthritis, and pneumonia. She also has a previous history of kidney stones, status post lithotripsy. Current labs include a white count 6.6, hemoglobin 12.9, hematocrit 42.6, and a platelet count of 101,000. D-dimer is 2.31. Venous blood gases showed CO2 49 and a pH is 7.36. Sodium 140, potassium 4.7, chlorides 105, CO2 25, BUN 22, creatinine 0.69. The N-terminal proBNP is elevated at 5250. Troponins were negative 2. Urine showed 2+ protein and moderate blood and large leukocyte esterase, 93 RBCs 74 WBCs, rare bacteria, and occasional mucus. Testing for coronavirus was negative. Chest x-ray showed changes consistent with pulmonary edema/fluid overload. CT angiogram was negative for pulmonary embolism. Doppler of the lower semis was negative for DVT. Progress note dated 04/26/2023. 72-year-old obese female seen yesterday in the emergency department. Today, she is seen in room 368. The patient's currently on 3 L of oxygen. She is receiving Lasix and her fluid overload, and Ancef, for her lower extremity edema. Her lower extremity edema is a bit better today. She does feel a bit better today, less short of breath. Current laboratory data includes a glucose of 181. Testing for harper virus was negative. Troponin was less than 0.012, 2. Progress note dated 04/27/2023. 73-year-old female initially seen in the emergency department, but is seen in room 368 today. She continues on oxygen at 3 L. No IV fluids. For her cough, we ordered some Tessalon Perles. In addition, she continues on Ancef for her bilateral lower extremity cellulitis. Also, she is receiving diuretics, for her pulmonary edema. Today's laboratory data includes a glucose of 137. Testing for harper virus was negative. Blood cultures are negative. On today's evaluation of 04/28/2023, I'm seeing the patient for a follow-up. She is on 10 L of oxygen by nasal cannula. She is in for increased lower extremity edema, hypoxic respiratory failure, lower extremity infection. The patient has some mild cardiomegaly on her CT angiogram. No evidence of any pulmonary embolism. Her echocardiogram showed LV function with ejection fraction of 50-55%. She has severe RV dilatation and severe pulmonary hypertension and she may have an underlying obstructive sleep apnea. No recent CBC, most recent electrolytes show a BUN of 34 with a creatinine 1.1 and sodium level is at 138. She is currently on oxygen at 10 L she is on IV cefazolin. She is also on oral Lasix 40 mg by mouth daily. She remains on bronchodilators with albuterol HFA, IV Solu-Medrol 20 mg every 8 hours and Lovenox 40 mg subcu portably prophylaxis. Objective - Vital Signs Vital signs: Vital Signs Temp 97.7 F 04/28/23 07:58 Pulse 88 04/28/23 07:58 Resp 18 04/28/23 07:58 BP 133/83 04/28/23 07:58 Pulse Ox 91 L 04/28/23 07:58 FiO2 Intake & Output 04/27/23 04/28/23 04/28/23 18:59 06:59 18:59 Intake Total 354 110 Output Total 1350 550 Balance -996 -550 110 Weight 139.5 kg Intake: Oral 354 110 Output: Urine 1350 550 Other: Voiding Method External Catheter External Catheter External Catheter - Exam No acute distress, oriented 3. Currently on 10 L of oxygen. HEENT examination is grossly unremarkable. Neck supple. Full range of motion. No adenopathy thyromegaly or neck vein distention. Cardiovascular examination reveals regular rhythm rate. S1-S2 normal. No S3 or S4. No discernible murmur noted. Heart sounds are distant. Lungs reveal scattered crackles. Breath sounds equal. 3 L saturation is 95 %. No rhonchi or wheezes. Abdomen obese, without masses or tenderness. Bowel sounds are noted. Extremities are intact. No cyanosis or clubbing. After significant bilateral lower extremity edema. Her legs have been wrapped with BOGDAN bandages. Skin reveals cellulitic changes in the lower extremities. Neurologic examination is brief but nonfocal. - Labs CBC & Chem 7: 04/26/23 10:57 04/28/23 08:41 Labs: Abnormal Lab Results - Last 24 Hours (Table) 04/26/23 04/27/23 04/27/23 Range/Units 10:57 12:00 16:45 Chloride (98-107) mmol/L Carbon Dioxide (22-30) mmol/L BUN (7-17) mg/dL Creatinine (0.52-1.04) mg/dL Glucose (74-99) mg/dL POC Glucose (mg/dL) 133 H 186 H (70-110) mg/dL Uric Acid 8.9 H (3.7-7.4) mg/dL AST (14-36) U/L 04/27/23 04/28/23 04/28/23 Range/Units 20:54 03:50 06:14 Chloride (98-107) mmol/L Carbon Dioxide (22-30) mmol/L BUN (7-17) mg/dL Creatinine (0.52-1.04) mg/dL Glucose (74-99) mg/dL POC Glucose (mg/dL) 206 H 215 H 193 H (70-110) mg/dL Uric Acid (3.7-7.4) mg/dL AST (14-36) U/L 04/28/23 Range/Units 08:41 Chloride 94 L (98-107) mmol/L Carbon Dioxide 31 H (22-30) mmol/L BUN 34 H (7-17) mg/dL Creatinine 1.19 H (0.52-1.04) mg/dL Glucose 209 H (74-99) mg/dL POC Glucose (mg/dL) (70-110) mg/dL Uric Acid (3.7-7.4) mg/dL AST 139 H (14-36) U/L Microbiology - Last 24 Hours (Table) 04/24/23 20:01 Blood Culture - Preliminary Blood 04/24/23 19:51 Blood Culture - Preliminary Blood Assessment and Plan Plan: Acute hypoxic respiratory failure, currently on 10 L of oxygen by nasal cannula. Shortness of breath is multifactorial. There is an obvious component of CHF with preserved LV function and severe right-sided heart failure with RV dysfunction and massive fluid overload, improving with diuretics. Right ventricular failure with severe pulmonary hypertension Shortness of breath, consistent with fluid overload, given the x-ray changes, lower extremity edema, and elevated BNP. Probable cellulitis, bilateral lower extremities. No evidence of pulmonary embolism or DVT. Morbid obesity. History of diabetes mellitus. History of vitamin D deficiency. Prior history of DVT. History of osteoarthritis. History of pneumonia. History of kidney stones. Stress urinary incontinence. Plan Wean down FiO2, to maintain a saturation above 90% Continue diuretics Provide incentive spirometer Monitor renal function We'll continue to follow. Obvious features of obstructive sleep apnea and this is to be further worked up on outpatient basis.
[2023-04-28 10:52] LABS: Basophils % (A) 0 %; Eosinophils % (A) 0 %; HCT 45.4 % (34.0-46.0); HGB 13.4 gm/dL (11.4-16.0); Hypochromasia Marked; Lymphocytes # (A) 0.8 k/uL (1.0-4.8); Lymphocytes % (A) 9 %; MCH 29.4 pg (25.0-35.0); MCHC 29.6 g/dL (31.0-37.0); MCV 99.5 fL (80.0-100.0); Macrocytosis Slight; Mean Platelet Volume 10.8; Monocytes # (A) 0.4 k/uL (0-1.0); Monocytes % (A) 5 %; Neutrophils # (A) 7.1 k/uL (1.3-7.7); Neutrophils % (A) 85 %; Platelet Count 185 k/uL (150-450); RBC 4.57 m/uL (3.80-5.40); RDW 15.6 % (11.5-15.5); WBC 8.4 k/uL (3.8-10.6)
[2023-04-28 11:13] LABS: Glucose,Whole Blood 232 mg/dL (70-110)
[2023-04-28 16:22] LABS: Glucose,Whole Blood 232 mg/dL (70-110)
--- NOTE | 2023-04-28 17:35 | P.PN ---
Subjective Progress Note Date: 04/28/23 Lorene Palma, is a 72-year-old female who presented with multiple complaints that have been occurring over the past few weeks. Patient reports she's had increased swelling to the lower extremity with weeping ulcers. Patient also reports she's had increased shortness of breath and cough. Patient also reports she's had tingling to hands bilaterally but has followed up with orthopedic surgeon outpatient. Patient has a past medical history of diabetes mellitus, DVT, I disorder, osteoporosis, pneumonia and macular degeneration. Chest x-ray completed showing marked interstitial phase pulmonary edema presumably cardiogenic etiology. Lab work revealing elevated d-dimer 2.31. CT of the chest performed showing trace pericardial effusion, scattered reticular infiltrates in the right upper lobe and both lung bases consider viral or interstitial pneumonia. Pulmonary arterial tree is adequately opacified with contrast no large central emboli are visible there is under opacification of a small segmental branch in the left lower lobe laterally no discrete thrombus is visible. This is of questioned significance small segmental pulmonary embolism cannot be excluded. Aortic arch is mildly calcified but nondilated. Will consult pulmonary services. Venous Doppler completed no deep vein thrombosis identified. Troponins negative. BNP elevated at 5250. UA positive for urinary tract infection. At this time patient will be admitted cardiology pulmonary service is consulted. Bilateral lower extremities noted for cellulitis. Infectious disease service is consulted patient started on IV antibiotics. 2-D echo ordered. COVID-19 negative. Patient started on IV Lasix On 04/26/2023 patient was seen and examined on the telemetry floor she is alert and oriented 3 in no apparent distress, she is complaining of bilateral lower extremity pain, site of cellulitis and ulcers, she is also complaining of left shoulder pain and shortness of breath with any activity, otherwise she denies any complaints there is no fever or chills no headache or dizziness no chest pain no cough no nausea or vomiting no abdominal pain no diarrhea no blood in the stools no burning with urination no frequency or urgency and no hematuria. At this time awaiting further recommendation from cardiology. Patient is maintained on IV antibiotic for bilateral lower extremity cellulitis with ulcers, awaiting further input from infectious disease. On 04/27/2023 patient alert and oriented 3. Patient reports improvement with lower infection many pain. Patient remains on IV cefazolin. Tessalon pearls added for cough. Pulmonary cardiology and infectious disease service is consulted. Vital signs temp 98.3, heart rate 97, respiratory rate 18, blood pressure 119/63 with pulse ox of 91% on 2 L On 04/28/2023 patient was seen and examined on the telemetry floor she is alert and oriented 3 in no apparent distress yesterday she had worsening shortness of breath at night with significant drop in her O2 sat duration down to the 70s O2 supplements was increased to 15 L high flow, pulmonary and cardiology are fol lowing patient is improving gradually during the day today, repeat chest x-ray ordered will follow closely Objective - Vital Signs Vital signs: Vital Signs Temp 97.7 F 04/28/23 07:58 Pulse 88 04/28/23 07:58 Resp 18 04/28/23 07:58 BP 133/83 04/28/23 07:58 Pulse Ox 91 L 04/28/23 07:58 FiO2 Intake & Output 04/27/23 04/28/23 04/28/23 18:59 06:59 18:59 Intake Total 354 110 Output Total 1350 550 Balance -996 -550 110 Weight 139.5 kg Intake: Oral 354 110 Output: Urine 1350 550 Other: Voiding Method External Catheter External Catheter External Catheter - Exam In general patient is alert and oriented x 3 in no distress HEENT head normocephalic and atraumatic Neck is supple no JVD no goiter no lymphadenopathy no carotid bruit Chest examination is clear to auscultation no crackles no wheezing Cardiac exam reveals regular heart sounds S1 and S2 no gallops no murmurs Abdomen is soft nontender no organomegaly with normal bowel sounds Extremity exam reveals bilateral pretibial erythema with superficial ulcers and 2+ edema Neurological examination reveals no gross focal deficits - Labs CBC & Chem 7: 04/28/23 08:41 04/28/23 08:41 Labs: Abnormal Lab Results - Last 24 Hours (Table) 04/26/23 04/27/23 04/27/23 Range/Units 10:57 12:00 16:45 MCHC (31.0-37.0) g/dL RDW (11.5-15.5) % Lymphocytes # (1.0-4.8) k/uL Chloride (98-107) mmol/L Carbon Dioxide (22-30) mmol/L BUN (7-17) mg/dL Creatinine (0.52-1.04) mg/dL Glucose (74-99) mg/dL POC Glucose (mg/dL) 133 H 186 H (70-110) mg/dL Uric Acid 8.9 H (3.7-7.4) mg/dL AST (14-36) U/L 04/27/23 04/28/23 04/28/23 Range/Units 20:54 03:50 06:14 MCHC (31.0-37.0) g/dL RDW (11.5-15.5) % Lymphocytes # (1.0-4.8) k/uL Chloride (98-107) mmol/L Carbon Dioxide (22-30) mmol/L BUN (7-17) mg/dL Creatinine (0.52-1.04) mg/dL Glucose (74-99) mg/dL POC Glucose (mg/dL) 206 H 215 H 193 H (70-110) mg/dL Uric Acid (3.7-7.4) mg/dL AST (14-36) U/L 04/28/23 04/28/23 Range/Units 08:41 08:41 MCHC 29.6 L (31.0-37.0) g/dL RDW 15.6 H (11.5-15.5) % Lymphocytes # 0.8 L (1.0-4.8) k/uL Chloride 94 L (98-107) mmol/L Carbon Dioxide 31 H (22-30) mmol/L BUN 34 H (7-17) mg/dL Creatinine 1.19 H (0.52-1.04) mg/dL Glucose 209 H (74-99) mg/dL POC Glucose (mg/dL) (70-110) mg/dL Uric Acid (3.7-7.4) mg/dL AST 139 H (14-36) U/L Microbiology - Last 24 Hours (Table) 04/24/23 20:01 Blood Culture - Preliminary Blood 04/24/23 19:51 Blood Culture - Preliminary Blood Assessment and Plan Assessment: 1. Shortness of breath 2. CHF exacerbation. Noted elevated BNP. 2-D echo ordered patient started on IV Lasix 3. Elevated d-dimer. CTA performed negative venous Doppler 4. Possible pneumonia. Pulmonary service is consulted 5. Urinary tract infection urine culture ordered 6. Lower extremity cellulitis. Patient started on IV antibiotics infectious disease service is consulted 7. History of diabetes mellitus 8. History of DVT 9. History of pneumonia 10. History of macular degeneration DVT prophylaxis Lovenox. GI prophylaxis Protonix Cardiology, pulmonary and infectious disease service is consulted Patient started on IV Lasix Patient started on IV antibiotic Blood and urine cultures ordered Repeat labs ordered 2-D echo ordered
[2023-04-28] MEDS: OXYBUTYNIN 10 MG TAB.ER.24 PO SCH (20:54)
[2023-04-29] MEDS: methylPREDNISolone SOD SUCCI 40 MG/ML 1 ML VIAL IV SCH ×2 (01:06→09:26)
[2023-04-29] MEDS: ceFAZolin 3 GM in SODIUM CHLORIDE 0.9% 100 ML IVPB SCH ×3 (01:06→16:35)
[2023-04-29 01:20] LABS: Glucose,Whole Blood 207 mg/dL (70-110)
[2023-04-29 06:27] LABS: Glucose,Whole Blood 212 mg/dL (70-110)
[2023-04-29] MEDS: PANTOPRAZOLE 40 MG TABLET PO SCH (06:48)
[2023-04-29] MEDS ORDERED: DEXTROSE 50% SYRINGE 50 ML IVP PRN ×2 (08:10)
[2023-04-29] MEDS: ASPIRIN 81 MG PO SCH ×2 (09:27→21:14)
[2023-04-29] MEDS: DAPAGLIFLOZIN PROPANEDIOL 10 MG TABLET PO SCH (09:27)
[2023-04-29] MEDS: metFORMIN 500 MG TAB PO SCH ×2 (09:28→21:14)
[2023-04-29] MEDS: METOPROLOL SUCCINATE (ER) 25 MG TAB.ER.24H PO SCH ×2 (09:28→21:14)
[2023-04-29] MEDS: BENZONATATE 100 MG CAP PO SCH ×3 (09:28→21:30)
[2023-04-29] MEDS: FUROSEMIDE 40 MG TAB PO SCH (09:28)
[2023-04-29] MEDS: CHOLECALCIFEROL 25 MCG (1000 IU) TABLET PO SCH ×2 (09:28→21:13)
[2023-04-29] MEDS: ATORVASTATIN 20 MG TAB PO SCH (09:28)
[2023-04-29] MEDS: ENOXAPARIN 40 MG/0.4 ML SYRINGE SQ SCH (09:29)
--- NOTE | 2023-04-29 09:31 | P.PN ---
Subjective Progress Note Date: 04/29/23 Lorene Palma, is a 72-year-old female who presented with multiple complaints that have been occurring over the past few weeks. Patient reports she's had increased swelling to the lower extremity with weeping ulcers. Patient also reports she's had increased shortness of breath and cough. Patient also reports she's had tingling to hands bilaterally but has followed up with orthopedic surgeon outpatient. Patient has a past medical history of diabetes mellitus, DVT, I disorder, osteoporosis, pneumonia and macular degeneration. Chest x-ray completed showing marked interstitial phase pulmonary edema presumably cardiogenic etiology. Lab work revealing elevated d-dimer 2.31. CT of the chest performed showing trace pericardial effusion, scattered reticular infiltrates in the right upper lobe and both lung bases consider viral or interstitial pneumonia. Pulmonary arterial tree is adequately opacified with contrast no large central emboli are visible there is under opacification of a small segmental branch in the left lower lobe laterally no discrete thrombus is visible. This is of questioned significance small segmental pulmonary embolism cannot be excluded. Aortic arch is mildly calcified but nondilated. Will consult pulmonary services. Venous Doppler completed no deep vein thrombosis identified. Troponins negative. BNP elevated at 5250. UA positive for urinary tract infection. At this time patient will be admitted cardiology pulmonary service is consulted. Bilateral lower extremities noted for cellulitis. Infectious disease service is consulted patient started on IV antibiotics. 2-D echo ordered. COVID-19 negative. Patient started on IV Lasix On 04/26/2023 patient was seen and examined on the telemetry floor she is alert and oriented 3 in no apparent distress, she is complaining of bilateral lower extremity pain, site of cellulitis and ulcers, she is also complaining of left shoulder pain and shortness of breath with any activity, otherwise she denies any complaints there is no fever or chills no headache or dizziness no chest pain no cough no nausea or vomiting no abdominal pain no diarrhea no blood in the stools no burning with urination no frequency or urgency and no hematuria. At this time awaiting further recommendation from cardiology. Patient is maintained on IV antibiotic for bilateral lower extremity cellulitis with ulcers, awaiting further input from infectious disease. On 04/27/2023 patient alert and oriented 3. Patient reports improvement with lower infection many pain. Patient remains on IV cefazolin. Tessalon pearls added for cough. Pulmonary cardiology and infectious disease service is consulted. Vital signs temp 98.3, heart rate 97, respiratory rate 18, blood pressure 119/63 with pulse ox of 91% on 2 L On 04/28/2023 patient was seen and examined on the telemetry floor she is alert and oriented 3 in no apparent distress yesterday she had worsening shortness of breath at night with significant drop in her O2 sat duration down to the 70s O2 supplements was increased to 15 L high flow, pulmonary and cardiology are f ollowing patient is improving gradually during the day today, repeat chest x-ray ordered will follow closely On 04/29/2023 patient is alert and oriented 3. Sliding scale insulin added. 97.9, heart rate 76, respiratory rate 14, blood pressure 112/73 with pulse ox of 94% on 6 L. Patient remains on IV Kefzol and IV steroids Objective - Vital Signs Vital signs: Vital Signs Temp 97.9 F 04/29/23 03:54 Pulse 76 04/29/23 03:54 Resp 14 04/29/23 03:54 BP 112/73 04/29/23 03:54 Pulse Ox 92 L 04/29/23 07:52 FiO2 Intake & Output 04/28/23 04/29/23 04/29/23 18:59 06:59 18:59 Intake Total 1000 780 240 Output Total 1000 1200 Balance 0 -420 240 Intake: Intake, IV Titration 100 Amount ceFAZolin 3 gm In Sodium 100 Chloride 0.9% 100 ml @ 200 mls/hr IVPB Q8HR [facility] Rx#:[id number] Oral 1000 680 240 Output: Urine 1000 1200 Other: Voiding Method External Catheter External Catheter # Bowel Movements 1 - Exam In general patient is alert and oriented x 3 in no distress HEENT head normocephalic and atraumatic Neck is supple no JVD no goiter no lymphadenopathy no carotid bruit Chest examination is clear to auscultation no crackles no wheezing Cardiac exam reveals regular heart sounds S1 and S2 no gallops no murmurs Abdomen is soft nontender no organomegaly with normal bowel sounds Extremity exam reveals bilateral pretibial erythema with superficial ulcers and 2+ edema Neurological examination reveals no gross focal deficits - Labs CBC & Chem 7: 04/28/23 08:41 04/28/23 08:41 Labs: Abnormal Lab Results - Last 24 Hours (Table) 04/28/23 04/28/23 04/28/23 Range/Units 08:41 08:41 08:41 MCHC 29.6 L (31.0-37.0) g/dL RDW 15.6 H (11.5-15.5) % Lymphocytes # 0.8 L (1.0-4.8) k/uL Chloride 94 L (98-107) mmol/L Carbon Dioxide 31 H (22-30) mmol/L BUN 34 H (7-17) mg/dL Creatinine 1.19 H (0.52-1.04) mg/dL Glucose 209 H (74-99) mg/dL POC Glucose (mg/dL) (70-110) mg/dL Hemoglobin A1c 7.8 H (<=6.0) % AST 139 H (14-36) U/L 04/28/23 04/28/23 04/29/23 Range/Units 11:11 16:20 01:09 MCHC (31.0-37.0) g/dL RDW (11.5-15.5) % Lymphocytes # (1.0-4.8) k/uL Chloride (98-107) mmol/L Carbon Dioxide (22-30) mmol/L BUN (7-17) mg/dL Creatinine (0.52-1.04) mg/dL Glucose (74-99) mg/dL POC Glucose (mg/dL) 232 H 232 H 207 H (70-110) mg/dL Hemoglobin A1c (<=6.0) % AST (14-36) U/L 04/29/23 Range/Units 06:24 MCHC (31.0-37.0) g/dL RDW (11.5-15.5) % Lymphocytes # (1.0-4.8) k/uL Chloride (98-107) mmol/L Carbon Dioxide (22-30) mmol/L BUN (7-17) mg/dL Creatinine (0.52-1.04) mg/dL Glucose (74-99) mg/dL POC Glucose (mg/dL) 212 H (70-110) mg/dL Hemoglobin A1c (<=6.0) % AST (14-36) U/L Microbiology - Last 24 Hours (Table) 04/24/23 20:01 Blood Culture - Preliminary Blood 04/24/23 19:51 Blood Culture - Preliminary Blood Assessment and Plan Assessment: 1. Shortness of breath 2. CHF exacerbation. Noted elevated BNP. 2-D echo ordered patient started on IV Lasix 3. Elevated d-dimer. CTA performed negative venous Doppler 4. Possible pneumonia. Pulmonary service is consulted 5. Urinary tract infection urine culture ordered 6. Lower extremity cellulitis. Patient started on IV antibiotics infectious disease service is consulted 7. History of diabetes mellitus 8. History of DVT 9. History of pneumonia 10. History of macular degeneration DVT prophylaxis Lovenox. GI prophylaxis Protonix Cardiology, pulmonary and infectious disease service is consulted Patient started on IV Lasix Patient started on IV antibiotic Blood and urine cultures ordered Repeat labs ordered 2-D echo ordered
--- NOTE | 2023-04-29 09:58 | P.PN ---
Subjective Progress Note Date: 04/29/23 72-year-old female seen in the emergency department, room 15. She's here with her . She apparently presented to the emergency department, on April 24, with multiple complaints including leg swelling, shortness of breath, cough, and generally just not feeling well. She also has some tingling to her hands bilaterally, and apparently has been seen by one of the hand surgeons. The patient is laying flat in bed. She is on a couple liters of oxygen. She's not receiving any IV fluids. She tells me that she has cellulitis of the lower extremities. She is a rather large woman. She also tells me that her only major medical problem is diabetes mellitus. Although, she apparently has a his tory of DVT, osteoarthritis, and pneumonia. She also has a previous history of kidney stones, status post lithotripsy. Current labs include a white count 6.6, hemoglobin 12.9, hematocrit 42.6, and a platelet count of 101,000. D-dimer is 2.31. Venous blood gases showed CO2 49 and a pH is 7.36. Sodium 140, potassium 4.7, chlorides 105, CO2 25, BUN 22, creatinine 0.69. The N-terminal proBNP is elevated at 5250. Troponins were negative 2. Urine showed 2+ protein and moderate blood and large leukocyte esterase, 93 RBCs 74 WBCs, rare bacteria, and occasional mucus. Testing for coronavirus was negative. Chest x-ray showed changes consistent with pulmonary edema/fluid overload. CT angiogram was negative for pulmonary embolism. Doppler of the lower semis was negative for DVT. Progress note dated 04/26/2023. 72-year-old obese female seen yesterday in the emergency department. Today, she is seen in room 368. The patient's currently on 3 L of oxygen. She is receiving Lasix and her fluid overload, and Ancef, for her lower extremity edema. Her lower extremity edema is a bit better today. She does feel a bit better today, less short of breath. Current laboratory data includes a glucose of 181. Testing for harper virus was negative. Troponin was less than 0.012, 2. Progress note dated 04/27/2023. 73-year-old female initially seen in the emergency department, but is seen in room 368 today. She continues on oxygen at 3 L. No IV fluids. For her cough, we ordered some Tessalon Perles. In addition, she continues on Ancef for her bilateral lower extremity cellulitis. Also, she is receiving diuretics, for her pulmonary edema. Today's laboratory data includes a glucose of 137. Testing for harper virus was negative. Blood cultures are negative. On today's evaluation of 04/28/2023, I'm seeing the patient for a follow-up. She is on 10 L of oxygen by nasal cannula. She is in for increased lower extremity edema, hypoxic respiratory failure, lower extremity infection. The patient has some mild cardiomegaly on her CT angiogram. No evidence of any pulmonary embolism. Her echocardiogram showed LV function with ejection fraction of 50-55%. She has severe RV dilatation and severe pulmonary hypertension and she may have an underlying obstructive sleep apnea. No recent CBC, most recent electrolytes show a BUN of 34 with a creatinine 1.1 and sodium level is at 138. She is currently on oxygen at 10 L she is on IV cefazolin. She is also on oral Lasix 40 mg by mouth daily. She remains on bronchodilators with albuterol HFA, IV Solu-Medrol 20 mg every 8 hours and Lovenox 40 mg subcu portably prophylaxis. On 04/29/2023, the patient is sitting up in a recliner. Doing well. She is down to 6 L of oxygen nasal cannula. She is still on Lasix. She is in a negative fluid balance. Labs from today are still pending. No other significant events overnight. No angina. No palpitations. No chest pain. Remains on albuterol HFA, IV Solu-Medrol 20 mg every 8 hours then Lovenox 40 mg subcu for DVT prophylaxis. Objective - Vital Signs Vital signs: Vital Signs Temp 97.9 F 04/29/23 03:54 Pulse 76 04/29/23 03:54 Resp 14 04/29/23 03:54 BP 112/73 04/29/23 03:54 Pulse Ox 92 L 04/29/23 07:52 FiO2 Intake & Output 04/28/23 04/29/23 04/29/23 18:59 06:59 18:59 Intake Total 1000 780 240 Output Total 1000 1200 Balance 0 -420 240 Intake: Intake, IV Titration 100 Amount ceFAZolin 3 gm In Sodium 100 Chloride 0.9% 100 ml @ 200 mls/hr IVPB Q8HR [facility] Rx#:[id number] Oral 1000 680 240 Output: Urine 1000 1200 Other: Voiding Method External Catheter External Catheter # Bowel Movements 1 - Exam No acute distress, oriented 3. Currently on 6L of oxygen. HEENT examination is grossly unremarkable. Neck supple. Full range of motion. No adenopathy thyromegaly or neck vein distention. Cardiovascular examination reveals regular rhythm rate. S1-S2 normal. No S3 or S4. No discernible murmur noted. Heart sounds are distant. Lungs reveal scattered crackles. Breath sounds equal. 3 L saturation is 95 %. No rhonchi or wheezes. Abdomen obese, without masses or tenderness. Bowel sounds are noted. Extremities are intact. No cyanosis or clubbing. After significant bilateral lower extremity edema. Her legs have been wrapped with BOGDAN bandages. Skin reveals cellulitic changes in the lower extremities. Neurologic examination is brief but nonfocal. - Labs CBC & Chem 7: 04/28/23 08:41 04/28/23 08:41 Labs: Abnormal Lab Results - Last 24 Hours (Table) 04/28/23 04/28/23 04/28/23 Range/Units 08:41 08:41 08:41 MCHC 29.6 L (31.0-37.0) g/dL RDW 15.6 H (11.5-15.5) % Lymphocytes # 0.8 L (1.0-4.8) k/uL Chloride 94 L (98-107) mmol/L Carbon Dioxide 31 H (22-30) mmol/L BUN 34 H (7-17) mg/dL Creatinine 1.19 H (0.52-1.04) mg/dL Glucose 209 H (74-99) mg/dL POC Glucose (mg/dL) (70-110) mg/dL Hemoglobin A1c 7.8 H (<=6.0) % AST 139 H (14-36) U/L 04/28/23 04/28/23 04/29/23 Range/Units 11:11 16:20 01:09 MCHC (31.0-37.0) g/dL RDW (11.5-15.5) % Lymphocytes # (1.0-4.8) k/uL Chloride (98-107) mmol/L Carbon Dioxide (22-30) mmol/L BUN (7-17) mg/dL Creatinine (0.52-1.04) mg/dL Glucose (74-99) mg/dL POC Glucose (mg/dL) 232 H 232 H 207 H (70-110) mg/dL Hemoglobin A1c (<=6.0) % AST (14-36) U/L 04/29/23 Range/Units 06:24 MCHC (31.0-37.0) g/dL RDW (11.5-15.5) % Lymphocytes # (1.0-4.8) k/uL Chloride (98-107) mmol/L Carbon Dioxide (22-30) mmol/L BUN (7-17) mg/dL Creatinine (0.52-1.04) mg/dL Glucose (74-99) mg/dL POC Glucose (mg/dL) 212 H (70-110) mg/dL Hemoglobin A1c (<=6.0) % AST (14-36) U/L Microbiology - Last 24 Hours (Table) 04/24/23 20:01 Blood Culture - Preliminary Blood 04/24/23 19:51 Blood Culture - Preliminary Blood Assessment and Plan Plan: Acute hypoxic respiratory failure, currently on 6 L of oxygen by nasal cannula. Shortness of breath is multifactorial. There is an obvious component of CHF with preserved LV function and severe right-sided heart failure with RV dysfunction and massive fluid overload, improving with diuretics. Patient is currently on oral Lasix. Negative fluid balance. Awaiting follow-up labs from this morning. Right ventricular failure with severe pulmonary hypertension Shortness of breath, consistent with fluid overload, given the x-ray changes, lo wer extremity edema, and elevated BNP. Probable cellulitis, bilateral lower extremities. No evidence of pulmonary embolism or DVT. Morbid obesity. History of diabetes mellitus. History of vitamin D deficiency. Prior history of DVT. History of osteoarthritis. History of pneumonia. History of kidney stones. Stress urinary incontinence. Plan Wean down FiO2, to maintain a saturation above 90% Continue diuretics Discontinue the Solu-Medrol Provide incentive spirometer Monitor renal function We'll continue to follow. Obvious features of obstructive sleep apnea and this is to be further worked up on outpatient basis.
[2023-04-29 10:19] LABS: Basophils % (A) 0 %; Eosinophils % (A) 0 %; HCT 45.7 % (34.0-46.0); HGB 13.1 gm/dL (11.4-16.0); Hypochromasia Marked; Lymphocytes # (A) 0.7 k/uL (1.0-4.8); Lymphocytes % (A) 9 %; MCH 28.8 pg (25.0-35.0); MCHC 28.7 g/dL (31.0-37.0); MCV 100.4 fL (80.0-100.0); Macrocytosis Slight; Mean Platelet Volume 9.7; Monocytes # (A) 0.3 k/uL (0-1.0); Monocytes % (A) 4 %; Neutrophils # (A) 6.3 k/uL (1.3-7.7); Neutrophils % (A) 86 %; Platelet Count 230 k/uL (150-450); RBC 4.55 m/uL (3.80-5.40); RDW 15.6 % (11.5-15.5); WBC 7.4 k/uL (3.8-10.6)
[2023-04-29 10:27] LABS: ALT 17 U/L (4-34); AST 46 U/L (14-36); African American GFR (CKD) 66 (>60 ml/min/1.73 sqM); Albumin 3.6 g/dL (3.5-5.0); Alkaline Phosphatase 86 U/L (38-126); Anion Gap 13 mmol/L; Blood Urea Nitrogen 45 mg/dL (7-17); Calcium 9.2 mg/dL (8.4-10.2); Carbon Dioxide 32 mmol/L (22-30); Chloride 92 mmol/L (98-107); Glucose 283 mg/dL (74-99); Non-African American GFR(CKD) 57 (>60 ml/min/1.73 sqM); Sodium 137 mmol/L (137-145); Total Bilirubin 0.5 mg/dL (0.2-1.3); Total Protein 6.7 g/dL (6.3-8.2)
[2023-04-29 11:25] LABS: Glucose,Whole Blood 239 mg/dL (70-110)
[2023-04-29] MEDS: INSULIN ASPART (NovoLOG) 100 UNIT/ML VIAL SQ SCH ×3 (11:37→21:14)
--- NOTE | 2023-04-29 14:37 | P.PN ---
Subjective Progress Note Date: 04/28/23 Principal diagnosis: Reason for follow-up is bilateral lower extremity cellulitis Patient is a 72-year-old female with a past medical history significant for diabetes mellitus DVT osteoarthritis pneumonia patient was brought into the hospital for evaluation of increasing swelling to bilateral lower extremity, patient has been diagnosed with bilateral lower extremity c ellulitis. On today's evaluation that is 04/28/2023 the patient remains to be afebrile, the patient is breathing comfortably however is requiring 10 L nasal cannula supplemental oxygen, the patient denies having any chest pain denies any cough or sputum production, patient denies any abdominal pain no nausea vomiting or any diarrhea, patient discomfort to lower extremity has decreased in intensity, bilateral lower extremity dressing was changed by the nurse this morning mention overall improvement in the redness Patient did have white count of 8.4, creatinine 1.19, blood cultures are currently pending. Objective - Vital Signs Vital signs: Vital Signs Temp 97.9 F 04/28/23 11:40 Pulse 80 04/28/23 11:40 Resp 18 04/28/23 11:40 BP 108/70 04/28/23 11:40 Pulse Ox 94 L 04/28/23 11:40 FiO2 Intake & Output 04/27/23 04/28/23 04/28/23 18:59 06:59 18:59 Intake Total 354 650 Output Total 1350 550 700 Balance -996 -550 -50 Weight 139.5 kg Intake: Oral 354 650 Output: Urine 1350 550 700 Other: Voiding Method External Catheter External Catheter External Catheter - Exam GENERAL DESCRIPTION: An elderly female lying in bed in no distress RESPIRATORY SYSTEM: Unlabored breathing , clear to auscultation anteriorly HEART: S1 S2 regular rate and rhythm , ABDOMEN: Soft , no tenderness EXTREMITIES: Bilateral lower extremity currently wrapped in Matthias wrap - Labs CBC & Chem 7: 04/29/23 09:26 04/29/23 09:26 Labs: Abnormal Lab Results - Last 24 Hours (Table) 04/26/23 04/27/23 04/27/23 Range/Units 10:57 16:45 20:54 MCHC (31.0-37.0) g/dL RDW (11.5-15.5) % Lymphocytes # (1.0-4.8) k/uL Chloride (98-107) mmol/L Carbon Dioxide (22-30) mmol/L BUN (7-17) mg/dL Creatinine (0.52-1.04) mg/dL Glucose (74-99) mg/dL POC Glucose (mg/dL) 186 H 206 H (70-110) mg/dL Uric Acid 8.9 H (3.7-7.4) mg/dL AST (14-36) U/L 04/28/23 04/28/23 04/28/23 Range/Units 03:50 06:14 08:41 MCHC 29.6 L (31.0-37.0) g/dL RDW 15.6 H (11.5-15.5) % Lymphocytes # 0.8 L (1.0-4.8) k/uL Chloride (98-107) mmol/L Carbon Dioxide (22-30) mmol/L BUN (7-17) mg/dL Creatinine (0.52-1.04) mg/dL Glucose (74-99) mg/dL POC Glucose (mg/dL) 215 H 193 H (70-110) mg/dL Uric Acid (3.7-7.4) mg/dL AST (14-36) U/L 04/28/23 04/28/23 Range/Units 08:41 11:11 MCHC (31.0-37.0) g/dL RDW (11.5-15.5) % Lymphocytes # (1.0-4.8) k/uL Chloride 94 L (98-107) mmol/L Carbon Dioxide 31 H (22-30) mmol/L BUN 34 H (7-17) mg/dL Creatinine 1.19 H (0.52-1.04) mg/dL Glucose 209 H (74-99) mg/dL POC Glucose (mg/dL) 232 H (70-110) mg/dL Uric Acid (3.7-7.4) mg/dL AST 139 H (14-36) U/L Microbiology - Last 24 Hours (Table) 04/24/23 20:01 Blood Culture - Preliminary Blood 04/24/23 19:51 Blood Culture - Preliminary Blood Assessment and Plan (1) Bilateral lower leg cellulitis Current Visit: Yes Status: Acute Code(s): L03.116 - CELLULITIS OF LEFT LOWER LIMB; L03.115 - CELLULITIS OF RIGHT LOWER LIMB SNOMED Code(s): 509284284 (2) Penicillin allergy Current Visit: Yes Status: Acute Code(s): Z88.0 - ALLERGY STATUS TO PENICILLIN SNOMED Code(s): 11730153 Plan: 1patient presented to hospital with increasing swelling to bilateral lower extremity patient did have evidence of erythema warmth and tenderness to touch concerning for cellulitis likely from gram-positive skin poli such as trapped less likely MRSA or gram-negative infection 2-positive UA but no urinary symptoms more likely asymptomatic bacteriuria 3patient to continue-Aquacel silver dressing to the open area followed by Matthias wrap dressing to be changed every 48 hours 4patient to continue with the cefazolin and monitor clinical course closely Questions concerns were answered Dictation was produced using [employer] dictation software. please excuse any grammatical, word or spelling errors. Time with Patient: Less than 30
--- NOTE | 2023-04-29 14:39 | P.PN ---
Subjective Progress Note Date: 04/29/23 Principal diagnosis: Reason for follow-up is bilateral lower extremity cellulitis Patient is a 72-year-old female with a past medical history significant for diabetes mellitus DVT osteoarthritis pneumonia patient was brought into the hospital for evaluation of increasing swelling to bilateral lower extremity, patient has been diagnosed with bilateral lower extremity c ellulitis. On today's evaluation that is 04/29/2023, the patient continues to be afebrile and is breathing comfortably requiring less supplemental oxygen currently on a 6 L nasal cannula, and patient denies any shortness of breath, chest pain, no cough or sputum production, patient denies nausea/vomiting /diarrhea and no abdominal pain. Lower extremity pain and swelling has decreased Patient did have white count of 7.4, creatinine 0.99, blood cultures are currently pending. Objective - Vital Signs Vital signs: Vital Signs Temp 97.9 F 04/29/23 03:54 Pulse 76 04/29/23 03:54 Resp 14 04/29/23 03:54 BP 112/73 04/29/23 03:54 Pulse Ox 92 L 04/29/23 07:52 FiO2 Intake & Output 04/28/23 04/29/23 04/29/23 18:59 06:59 18:59 Intake Total 1000 780 240 Output Total 1000 1200 Balance 0 -420 240 Intake: Intake, IV Titration 100 Amount ceFAZolin 3 gm In Sodium 100 Chloride 0.9% 100 ml @ 200 mls/hr IVPB Q8HR [facility] Rx#:[id number] Oral 1000 680 240 Output: Urine 1000 1200 Other: Voiding Method External Catheter External Catheter # Bowel Movements 1 - Exam GENERAL DESCRIPTION: An elderly female lying in bed in no distress RESPIRATORY SYSTEM: Unlabored breathing , clear to auscultation anteriorly HEART: S1 S2 regular rate and rhythm , ABDOMEN: Soft , no tenderness EXTREMITIES: Bilateral lower extremity currently wrapped in Matthias wrap - Labs CBC & Chem 7: 04/29/23 09:26 04/29/23 09:26 Labs: Abnormal Lab Results - Last 24 Hours (Table) 04/28/23 04/28/23 04/29/23 Range/Units 08:41 16:20 01:09 MCV (80.0-100.0) fL MCHC (31.0-37.0) g/dL RDW (11.5-15.5) % Lymphocytes # (1.0-4.8) k/uL Chloride (98-107) mmol/L Carbon Dioxide (22-30) mmol/L BUN (7-17) mg/dL Glucose (74-99) mg/dL POC Glucose (mg/dL) 232 H 207 H (70-110) mg/dL Hemoglobin A1c 7.8 H (<=6.0) % AST (14-36) U/L 04/29/23 04/29/23 04/29/23 Range/Units 06:24 09:26 09:26 MCV 100.4 H (80.0-100.0) fL MCHC 28.7 L (31.0-37.0) g/dL RDW 15.6 H (11.5-15.5) % Lymphocytes # 0.7 L (1.0-4.8) k/uL Chloride 92 L (98-107) mmol/L Carbon Dioxide 32 H (22-30) mmol/L BUN 45 H (7-17) mg/dL Glucose 283 H (74-99) mg/dL POC Glucose (mg/dL) 212 H (70-110) mg/dL Hemoglobin A1c (<=6.0) % AST 46 H (14-36) U/L 04/29/23 Range/Units 11:21 MCV (80.0-100.0) fL MCHC (31.0-37.0) g/dL RDW (11.5-15.5) % Lymphocytes # (1.0-4.8) k/uL Chloride (98-107) mmol/L Carbon Dioxide (22-30) mmol/L BUN (7-17) mg/dL Glucose (74-99) mg/dL POC Glucose (mg/dL) 239 H (70-110) mg/dL Hemoglobin A1c (<=6.0) % AST (14-36) U/L Assessment and Plan (1) Bilateral lower leg cellulitis Current Visit: Yes Status: Acute Code(s): L03.116 - CELLULITIS OF LEFT LOWER LIMB; L03.115 - CELLULITIS OF RIGHT LOWER LIMB SNOMED Code(s): 094888853 (2) Penicillin allergy Current Visit: Yes Status: Acute Code(s): Z88.0 - ALLERGY STATUS TO PENICILLIN SNOMED Code(s): 89351732 Plan: 1patient presented to hospital with increasing swelling to bilateral lower extremity patient did have evidence of erythema warmth and tenderness to touch concerning for cellulitis likely from gram-positive skin poli such as trapped less likely MRSA or gram-negative infection 2-positive UA but no urinary symptoms more likely asymptomatic bacteriuria 3patient to continue-Aquacel silver dressing to the open area followed by Matthias wrap dressing to be changed every 48 hours 4patient did have some clinical improvement as for as her lower extremity symptoms are concerned and will to continue with the cefazolin and monitor clinical course closely at the bedside, Questions concerns were answered Dictation was produced using [employer] dictation software. please excuse any grammatical, word or spelling errors. Time with Patient: Less than 30
[2023-04-29 16:17] LABS: Glucose,Whole Blood 282 mg/dL (70-110)
[2023-04-29 19:50] LABS: Glucose,Whole Blood 286 mg/dL (70-110)
[2023-04-29] MEDS: OXYBUTYNIN 10 MG TAB.ER.24 PO SCH (21:13)
[2023-04-30] MEDS: ceFAZolin 3 GM in SODIUM CHLORIDE 0.9% 100 ML IVPB SCH ×3 (00:24→17:34)
[2023-04-30 06:03] LABS: Glucose,Whole Blood 155 mg/dL (70-110)
[2023-04-30] MEDS: PANTOPRAZOLE 40 MG TABLET PO SCH (06:23)
[2023-04-30] MEDS: INSULIN ASPART (NovoLOG) 100 UNIT/ML VIAL SQ SCH ×4 (06:28→21:39)
[2023-04-30] MEDS: ASPIRIN 81 MG PO SCH ×2 (09:36→21:39)
[2023-04-30] MEDS: FUROSEMIDE 40 MG TAB PO SCH (09:36)
[2023-04-30] MEDS: METOPROLOL SUCCINATE (ER) 25 MG TAB.ER.24H PO SCH ×2 (09:37→21:39)
[2023-04-30] MEDS: ATORVASTATIN 20 MG TAB PO SCH (09:37)
[2023-04-30] MEDS: CHOLECALCIFEROL 25 MCG (1000 IU) TABLET PO SCH ×2 (09:37→21:39)
[2023-04-30] MEDS: BENZONATATE 100 MG CAP PO SCH ×3 (09:37→21:39)
[2023-04-30] MEDS: ENOXAPARIN 40 MG/0.4 ML SYRINGE SQ SCH (09:37)
[2023-04-30] MEDS: metFORMIN 500 MG TAB PO SCH ×2 (09:37→21:39)
[2023-04-30] MEDS: DAPAGLIFLOZIN PROPANEDIOL 10 MG TABLET PO SCH (09:40)
--- NOTE | 2023-04-30 10:24 | P.PN ---
Subjective Progress Note Date: 04/30/23 Lorene Palma, is a 72-year-old female who presented with multiple complaints that have been occurring over the past few weeks. Patient reports she's had increased swelling to the lower extremity with weeping ulcers. Patient also reports she's had increased shortness of breath and cough. Patient also reports she's had tingling to hands bilaterally but has followed up with orthopedic surgeon outpatient. Patient has a past medical history of diabetes mellitus, DVT, I disorder, osteoporosis, pneumonia and macular degeneration. Chest x-ray completed showing marked interstitial phase pulmonary edema presumably cardiogenic etiology. Lab work revealing elevated d-dimer 2.31. CT of the chest performed showing trace pericardial effusion, scattered reticular infiltrates in the right upper lobe and both lung bases consider viral or interstitial pneumonia. Pulmonary arterial tree is adequately opacified with contrast no large central emboli are visible there is under opacification of a small segmental branch in the left lower lobe laterally no discrete thrombus is visible. This is of questioned significance small segmental pulmonary embolism cannot be excluded. Aortic arch is mildly calcified but nondilated. Will consult pulmonary services. Venous Doppler completed no deep vein thrombosis identified. Troponins negative. BNP elevated at 5250. UA positive for urinary tract infection. At this time patient will be admitted cardiology pulmonary service is consulted. Bilateral lower extremities noted for cellulitis. Infectious disease service is consulted patient started on IV antibiotics. 2-D echo ordered. COVID-19 negative. Patient started on IV Lasix On 04/26/2023 patient was seen and examined on the telemetry floor she is alert and oriented 3 in no apparent distress, she is complaining of bilateral lower extremity pain, site of cellulitis and ulcers, she is also complaining of left shoulder pain and shortness of breath with any activity, otherwise she denies any complaints there is no fever or chills no headache or dizziness no chest pain no cough no nausea or vomiting no abdominal pain no diarrhea no blood in the stools no burning with urination no frequency or urgency and no hematuria. At this time awaiting further recommendation from cardiology. Patient is maintained on IV antibiotic for bilateral lower extremity cellulitis with ulcers, awaiting further input from infectious disease. On 04/27/2023 patient alert and oriented 3. Patient reports improvement with lower infection many pain. Patient remains on IV cefazolin. Tessalon pearls added for cough. Pulmonary cardiology and infectious disease service is consulted. Vital signs temp 98.3, heart rate 97, respiratory rate 18, blood pressure 119/63 with pulse ox of 91% on 2 L On 04/28/2023 patient was seen and examined on the telemetry floor she is alert and oriented 3 in no apparent distress yesterday she had worsening shortness of breath at night with significant drop in her O2 sat duration down to the 70s O2 supplements was increased to 15 L high flow, pulmonary and cardiology are f gabe patient is improving gradually during the day today, repeat chest x-ray ordered will follow closely On 04/29/2023 patient is alert and oriented 3. Sliding scale insulin added. 97.9, heart rate 76, respiratory rate 14, blood pressure 112/73 with pulse ox of 94% on 6 L. Patient remains on IV Kefzol and IV steroids On 04/30/2023 patient is alert and oriented 3. Patient reports improvement with shortness of breath and bilateral leg pain. Oxygen decreasing to 5 L. Per pulmonary services steroids have been DC'd. Patient remains on IV antibiotics. Pulmonary, cardiology and infectious disease services following. Current vital signs temp 97.9, heart rate 80, respiratory rate 18, blood pressure 115/73 with pulse ox 93% on 5 L Objective - Vital Signs Vital signs: Vital Signs Temp 97.9 F 04/29/23 19:49 Pulse 84 04/30/23 04:06 Resp 18 04/30/23 04:06 BP 145/83 04/30/23 04:06 Pulse Ox 93 L 04/30/23 08:54 FiO2 Intake & Output 04/29/23 04/30/23 04/30/23 18:59 06:59 18:59 Intake Total 465 298 Output Total 1250 1250 475 Balance -785 -1250 -177 Weight 160.5 kg Intake: Oral 465 298 Output: Urine 1250 1250 475 Other: Voiding Method External Catheter External Catheter # Bowel Movements 1 - Exam In general patient is alert and oriented x 3 in no distress HEENT head normocephalic and atraumatic Neck is supple no JVD no goiter no lymphadenopathy no carotid bruit Chest examination is clear to auscultation no crackles no wheezing Cardiac exam reveals regular heart sounds S1 and S2 no gallops no murmurs Abdomen is soft nontender no organomegaly with normal bowel sounds Extremity exam reveals bilateral pretibial erythema with superficial ulcers and 2+ edema Neurological examination reveals no gross focal deficits - Labs CBC & Chem 7: 04/29/23 09:26 04/29/23 09:26 Labs: Abnormal Lab Results - Last 24 Hours (Table) 04/29/23 04/29/23 04/29/23 Range/Units 09:26 11:21 16:15 Chloride 92 L (98-107) mmol/L Carbon Dioxide 32 H (22-30) mmol/L BUN 45 H (7-17) mg/dL Glucose 283 H (74-99) mg/dL POC Glucose (mg/dL) 239 H 282 H (70-110) mg/dL AST 46 H (14-36) U/L 04/29/23 04/30/23 Range/Units 19:47 06:01 Chloride (98-107) mmol/L Carbon Dioxide (22-30) mmol/L BUN (7-17) mg/dL Glucose (74-99) mg/dL POC Glucose (mg/dL) 286 H 155 H (70-110) mg/dL AST (14-36) U/L Microbiology - Last 24 Hours (Table) 04/24/23 20:01 Blood Culture - Final Blood 04/24/23 19:51 Blood Culture - Final Blood Assessment and Plan Assessment: 1. Shortness of breath 2. CHF exacerbation. Noted elevated BNP. 2-D echo ordered patient started on IV Lasix 3. Elevated d-dimer. CTA performed negative venous Doppler 4. Possible pneumonia. Pulmonary service is consulted 5. Urinary tract infection urine culture ordered 6. Lower extremity cellulitis. Patient started on IV antibiotics infectious disease service is consulted 7. History of diabetes mellitus 8. History of DVT 9. History of pneumonia 10. History of macular degeneration DVT prophylaxis Lovenox. GI prophylaxis Protonix Cardiology, pulmonary and infectious disease service is consulted Patient remains on IV antibiotics
[2023-04-30 10:39] LABS: Basophils % (A) 1 %; Eosinophils # (A) 0.1 k/uL (0-0.7); Eosinophils % (A) 1 %; HCT 43.2 % (34.0-46.0); HGB 13.1 gm/dL (11.4-16.0); Hypochromasia Marked; Lymphocytes # (A) 1.5 k/uL (1.0-4.8); Lymphocytes % (A) 16 %; MCH 29.6 pg (25.0-35.0); MCHC 30.2 g/dL (31.0-37.0); MCV 98.1 fL (80.0-100.0); Mean Platelet Volume 10.5; Monocytes # (A) 0.8 k/uL (0-1.0); Monocytes % (A) 9 %; Neutrophils # (A) 6.8 k/uL (1.3-7.7); Neutrophils % (A) 73 %; Platelet Count 243 k/uL (150-450); RDW 15.4 % (11.5-15.5); WBC 9.3 k/uL (3.8-10.6)
[2023-04-30 11:22] LABS: ALT 26 U/L (4-34); AST 45 U/L (14-36); African American GFR (CKD) 88 (>60 ml/min/1.73 sqM); Albumin 3.5 g/dL (3.5-5.0); Alkaline Phosphatase 75 U/L (38-126); Anion Gap 10 mmol/L; Blood Urea Nitrogen 44 mg/dL (7-17); Carbon Dioxide 33 mmol/L (22-30); Chloride 95 mmol/L (98-107); Glucose 168 mg/dL (74-99); Non-African American GFR(CKD) 77 (>60 ml/min/1.73 sqM); Potassium 4.6 mmol/L (3.5-5.1); Sodium 138 mmol/L (137-145); Total Bilirubin 0.5 mg/dL (0.2-1.3); Total Protein 6.4 g/dL (6.3-8.2)
[2023-04-30 11:31] LABS: Glucose,Whole Blood 147 mg/dL (70-110)
--- NOTE | 2023-04-30 12:33 | P.PN ---
Subjective Progress Note Date: 04/30/23 Principal diagnosis: Reason for follow-up is bilateral lower extremity cellulitis Patient is a 72-year-old female with a past medical history significant for diabetes mellitus DVT osteoarthritis pneumonia patient was brought into the hospital for evaluation of increasing swelling to bilateral lower extremity, patient has been diagnosed with bilateral lower extremity c ellulitis. On today's evaluation that is 04/30/2023 the patient remains to be afebrile, the patient is breathing comfortably on 5 L nasal cannula supplemental oxygen, the patient denies having any chest pain or cough and no sputum production, patient denies nausea vomiting or any diarrhea, and no abdominal pain , the patient bilateral lower extremity extremity pain and swelling has decreased, did have some discomfort with change this morning Patient did have white count of 9.3, creatinine is 0.78, blood cultures are negative Objective - Vital Signs Vital signs: Vital Signs Temp 97.9 F 04/29/23 19:49 Pulse 84 04/30/23 04:06 Resp 18 04/30/23 04:06 BP 145/83 04/30/23 04:06 Pulse Ox 93 L 04/30/23 08:54 FiO2 Intake & Output 04/29/23 04/30/23 04/30/23 18:59 06:59 18:59 Intake Total 465 298 Output Total 1250 1250 600 Balance -785 -1250 -302 Weight 160.5 kg Intake: Oral 465 298 Output: Urine 1250 1250 600 Other: Voiding Method External Catheter External Catheter # Bowel Movements 1 1 - Exam GENERAL DESCRIPTION: An elderly female lying in bed in no distress RESPIRATORY SYSTEM: Unlabored breathing , clear to auscultation anteriorly HEART: S1 S2 regular rate and rhythm , ABDOMEN: Soft , no tenderness EXTREMITIES: Bilateral lower extremity currently wrapped in Matthias wrap dressing changed this morning apparently redness has decreased - Labs CBC & Chem 7: 04/30/23 09:39 04/30/23 09:39 Labs: Abnormal Lab Results - Last 24 Hours (Table) 04/29/23 04/29/23 04/30/23 Range/Units 16:15 19:47 06:01 MCHC (31.0-37.0) g/dL Chloride (98-107) mmol/L Carbon Dioxide (22-30) mmol/L BUN (7-17) mg/dL Glucose (74-99) mg/dL POC Glucose (mg/dL) 282 H 286 H 155 H (70-110) mg/dL AST (14-36) U/L 04/30/23 04/30/23 04/30/23 Range/Units 09:39 09:39 11:29 MCHC 30.2 L (31.0-37.0) g/dL Chloride 95 L (98-107) mmol/L Carbon Dioxide 33 H (22-30) mmol/L BUN 44 H (7-17) mg/dL Glucose 168 H (74-99) mg/dL POC Glucose (mg/dL) 147 H (70-110) mg/dL AST 45 H (14-36) U/L Microbiology - Last 24 Hours (Table) 04/24/23 20:01 Blood Culture - Final Blood 04/24/23 19:51 Blood Culture - Final Blood Assessment and Plan (1) Bilateral lower leg cellulitis Current Visit: Yes Status: Acute Code(s): L03.116 - CELLULITIS OF LEFT LOWER LIMB; L03.115 - CELLULITIS OF RIGHT LOWER LIMB SNOMED Code(s): 506592250 (2) Penicillin allergy Current Visit: Yes Status: Acute Code(s): Z88.0 - ALLERGY STATUS TO PENICILLIN SNOMED Code(s): 89318402 Plan: 1patient presented to hospital with increasing swelling to bilateral lower extr emity patient did have evidence of erythema warmth and tenderness to touch concerning for cellulitis likely from gram-positive skin poli such as trapped less likely MRSA or gram-negative infection 2-positive UA but no urinary symptoms more likely asymptomatic bacteriuria 3patient to continue-Aquacel silver dressing to the open area followed by Matthias wrap dressing to be changed every 48 hours 4patient to continue with the cefazolin and plan to finish therapy with oral Keflex Dictation was produced using [employer] dictation software. please excuse any grammatical, word or spelling errors. Time with Patient: Less than 30
--- NOTE | 2023-04-30 16:26 | P.PN ---
Subjective Progress Note Date: 04/30/23 72-year-old female seen in the emergency department, room 15. She's here with her . She apparently presented to the emergency department, on April 24, with multiple complaints including leg swelling, shortness of breath, cough, and generally just not feeling well. She also has some tingling to her hands bilaterally, and apparently has been seen by one of the hand surgeons. The patient is laying flat in bed. She is on a couple liters of oxygen. She's not receiving any IV fluids. She tells me that she has cellulitis of the lower extremities. She is a rather large woman. She also tells me that her only major medical problem is diabetes mellitus. Although, she apparently has a his tory of DVT, osteoarthritis, and pneumonia. She also has a previous history of kidney stones, status post lithotripsy. Current labs include a white count 6.6, hemoglobin 12.9, hematocrit 42.6, and a platelet count of 101,000. D-dimer is 2.31. Venous blood gases showed CO2 49 and a pH is 7.36. Sodium 140, potassium 4.7, chlorides 105, CO2 25, BUN 22, creatinine 0.69. The N-terminal proBNP is elevated at 5250. Troponins were negative 2. Urine showed 2+ protein and moderate blood and large leukocyte esterase, 93 RBCs 74 WBCs, rare bacteria, and occasional mucus. Testing for coronavirus was negative. Chest x-ray showed changes consistent with pulmonary edema/fluid overload. CT angiogram was negative for pulmonary embolism. Doppler of the lower semis was negative for DVT. Progress note dated 04/26/2023. 72-year-old obese female seen yesterday in the emergency department. Today, she is seen in room 368. The patient's currently on 3 L of oxygen. She is receiving Lasix and her fluid overload, and Ancef, for her lower extremity edema. Her lower extremity edema is a bit better today. She does feel a bit better today, less short of breath. Current laboratory data includes a glucose of 181. Testing for harper virus was negative. Troponin was less than 0.012, 2. Progress note dated 04/27/2023. 73-year-old female initially seen in the emergency department, but is seen in room 368 today. She continues on oxygen at 3 L. No IV fluids. For her cough, we ordered some Tessalon Perles. In addition, she continues on Ancef for her bilateral lower extremity cellulitis. Also, she is receiving diuretics, for her pulmonary edema. Today's laboratory data includes a glucose of 137. Testing for harper virus was negative. Blood cultures are negative. On today's evaluation of 04/28/2023, I'm seeing the patient for a follow-up. She is on 10 L of oxygen by nasal cannula. She is in for increased lower extremity edema, hypoxic respiratory failure, lower extremity infection. The patient has some mild cardiomegaly on her CT angiogram. No evidence of any pulmonary embolism. Her echocardiogram showed LV function with ejection fraction of 50-55%. She has severe RV dilatation and severe pulmonary hypertension and she may have an underlying obstructive sleep apnea. No recent CBC, most recent electrolytes show a BUN of 34 with a creatinine 1.1 and sodium level is at 138. She is currently on oxygen at 10 L she is on IV cefazolin. She is also on oral Lasix 40 mg by mouth daily. She remains on bronchodilators with albuterol HFA, IV Solu-Medrol 20 mg every 8 hours and Lovenox 40 mg subcu portably prophylaxis. On 04/29/2023, the patient is sitting up in a recliner. Doing well. She is down to 6 L of oxygen nasal cannula. She is still on Lasix. She is in a negative fluid balance. Labs from today are still pending. No other significant events overnight. No angina. No palpitations. No chest pain. Remains on albuterol HFA, IV Solu-Medrol 20 mg every 8 hours then Lovenox 40 mg subcu for DVT prophylaxis. On 04/30/2023, the patient is being seen for a follow-up. Doing well. No new complaints. The patient has been weaned down to 5 L of oxygen by nasal cannula with a pulse ox of 95%. The patient is diuresing adequately and the patient is a negative fluid balance of at least 2 L over the past 24 hours. The patient is currently on Lasix 40 mg by mouth daily. The patient is still on IV cefazolin regarding lower extremity cellulitis. Edema still present in the legs bilaterally. Blood work from today shows a BUN of 44 with a creatinine of 0.7. Sodium level is at 138. The risks count of 9.3 with a hemoglobin 15.1 and a platelet count of 243. No chest pain. No interval worsening shortness of breath. Objective - Vital Signs Vital signs: Vital Signs Temp 97.9 F 04/29/23 19:49 Pulse 84 04/30/23 04:06 Resp 18 04/30/23 04:06 BP 145/83 04/30/23 04:06 Pulse Ox 93 L 04/30/23 08:54 FiO2 Intake & Output 04/29/23 04/30/23 04/30/23 18:59 06:59 18:59 Intake Total 465 298 Output Total 1250 1250 600 Balance -785 -1250 -302 Weight 160.5 kg Intake: Oral 465 298 Output: Urine 1250 1250 600 Other: Voiding Method External Catheter External Catheter # Bowel Movements 1 1 - Exam No acute distress, oriented 3. Currently on 5 L of oxygen. HEENT examination is grossly unremarkable. Neck supple. Full range of motion. No adenopathy thyromegaly or neck vein distention. Cardiovascular examination reveals regular rhythm rate. S1-S2 normal. No S3 or S4. No discernible murmur noted. Heart sounds are distant. Lungs reveal scattered crackles the patient has diminished breath on lung base bilaterally. No significant wheezes. Abdomen obese, without masses or tenderness. Bowel sounds are noted. Extremities are intact. No cyanosis or clubbing. After significant bilateral lower extremity edema. Her legs have been wrapped with BOGDAN bandages. Skin reveals cellulitic changes in the lower extremities. Neurologic examination is brief but nonfocal. - Labs CBC & Chem 7: 04/30/23 09:39 04/30/23 09:39 Labs: Abnormal Lab Results - Last 24 Hours (Table) 04/29/23 04/29/23 04/29/23 Range/Units 11:21 16:15 19:47 MCHC (31.0-37.0) g/dL POC Glucose (mg/dL) 239 H 282 H 286 H (70-110) mg/dL 04/30/23 04/30/23 Range/Units 06:01 09:39 MCHC 30.2 L (31.0-37.0) g/dL POC Glucose (mg/dL) 155 H (70-110) mg/dL Microbiology - Last 24 Hours (Table) 04/24/23 20:01 Blood Culture - Final Blood 04/24/23 19:51 Blood Culture - Final Blood Assessment and Plan Plan: Acute hypoxic respiratory failure, currently on 5 L of oxygen by nasal cannula. Shortness of breath is multifactorial. There is an obvious component of CHF with preserved LV function and severe right-sided heart failure with RV dysfunction and massive fluid overload, improving with diuretics. Patient is currently on oral Lasix. Negative fluid balance. The patient continues to produce adequate amount of urine output for now. Right ventricular failure with severe pulmonary hypertension Shortness of breath, consistent with fluid overload, given the x-ray changes, lower extremity edema, and elevated BNP. Clinically improving Probable cellulitis, bilateral lower extremities. The patient remains on IV cefazolin No evidence of pulmonary embolism or DVT. Morbid obesity. History of diabetes mellitus. History of vitamin D deficiency. Prior history of DVT. History of osteoarthritis. History of pneumonia. History of kidney stones. Stress urinary incontinence. Plan Wean down FiO2, to maintain a saturation above 90%, currently on 5 L Continue diuretics Monitor fluid balance Provide incentive spirometer Monitor renal function We'll continue to follow. Obvious features of obstructive sleep apnea and this is to be further worked up on outpatient basis.
[2023-04-30 16:30] LABS: Glucose,Whole Blood 146 mg/dL (70-110)
[2023-04-30 20:09] LABS: Glucose,Whole Blood 255 mg/dL (70-110)
[2023-04-30] MEDS: OXYBUTYNIN 10 MG TAB.ER.24 PO SCH (21:39)
[2023-05-01] MEDS: ceFAZolin 3 GM in SODIUM CHLORIDE 0.9% 100 ML IVPB SCH ×4 (00:12→23:34)
[2023-05-01 06:30] LABS: Glucose,Whole Blood 167 mg/dL (70-110)
[2023-05-01] MEDS: PANTOPRAZOLE 40 MG TABLET PO SCH (06:32)
[2023-05-01] MEDS: INSULIN ASPART (NovoLOG) 100 UNIT/ML VIAL SQ SCH ×4 (06:32→21:02)
[2023-05-01] MEDS: FUROSEMIDE 40 MG TAB PO SCH ×2 (08:50→17:27)
[2023-05-01] MEDS: CHOLECALCIFEROL 25 MCG (1000 IU) TABLET PO SCH ×2 (08:50→21:01)
[2023-05-01] MEDS: metFORMIN 500 MG TAB PO SCH ×2 (08:50→21:01)
[2023-05-01] MEDS: ATORVASTATIN 20 MG TAB PO SCH (08:50)
[2023-05-01] MEDS: ASPIRIN 81 MG PO SCH ×2 (08:50→21:01)
[2023-05-01] MEDS: BENZONATATE 100 MG CAP PO SCH ×3 (08:50→21:01)
[2023-05-01] MEDS: METOPROLOL SUCCINATE (ER) 25 MG TAB.ER.24H PO SCH ×2 (08:50→21:01)
[2023-05-01] MEDS: DAPAGLIFLOZIN PROPANEDIOL 10 MG TABLET PO SCH (08:51)
[2023-05-01] MEDS: ENOXAPARIN 40 MG/0.4 ML SYRINGE SQ SCH (08:51)
[2023-05-01 10:17] LABS: Basophils % (A) 0 %; Eosinophils # (A) 0.6 k/uL (0-0.7); Eosinophils % (A) 6 %; HCT 46.5 % (34.0-46.0); HGB 13.4 gm/dL (11.4-16.0); Hypochromasia Marked; Lymphocytes # (A) 0.9 k/uL (1.0-4.8); Lymphocytes % (A) 10 %; MCH 28.8 pg (25.0-35.0); MCHC 28.8 g/dL (31.0-37.0); Macrocytosis Slight; Mean Platelet Volume 10.3; Monocytes # (A) 0.5 k/uL (0-1.0); Monocytes % (A) 6 %; Neutrophils # (A) 6.7 k/uL (1.3-7.7); Neutrophils % (A) 76 %; Platelet Count 178 k/uL (150-450); Poikilocytosis Slight; RBC 4.65 m/uL (3.80-5.40); RDW 15.5 % (11.5-15.5); WBC 8.8 k/uL (3.8-10.6)
[2023-05-01 10:32] LABS: ALT 12 U/L (4-34); AST 25 U/L (14-36); African American GFR (CKD) >90 (>60 ml/min/1.73 sqM); Albumin 3.5 g/dL (3.5-5.0); Alkaline Phosphatase 88 U/L (38-126); Anion Gap 9 mmol/L; Blood Urea Nitrogen 34 mg/dL (7-17); Calcium 9.2 mg/dL (8.4-10.2); Carbon Dioxide 35 mmol/L (22-30); Chloride 97 mmol/L (98-107); Glucose 152 mg/dL (74-99); Non-African American GFR(CKD) 88 (>60 ml/min/1.73 sqM); Sodium 141 mmol/L (137-145); Total Bilirubin 0.5 mg/dL (0.2-1.3); Total Protein 6.3 g/dL (6.3-8.2)
[2023-05-01 10:39] LABS: Potassium 4.4 mmol/L (3.5-5.1)
[2023-05-01 11:19] LABS: Glucose,Whole Blood 168 mg/dL (70-110)
[2023-05-01 11:27] VITALS: BMI 60.3
--- NOTE | 2023-05-01 14:55 | P.PN ---
Subjective Progress Note Date: 05/01/23 72-year-old female seen in the emergency department, room 15. She's here with her . She apparently presented to the emergency department, on April 24, with multiple complaints including leg swelling, shortness of breath, cough, and generally just not feeling well. She also has some tingling to her hands bilaterally, and apparently has been seen by one of the hand surgeons. The patient is laying flat in bed. She is on a couple liters of oxygen. She's not receiving any IV fluids. She tells me that she has cellulitis of the lower extremities. She is a rather large woman. She also tells me that her only major medical problem is diabetes mellitus. Although, she apparently has a his tory of DVT, osteoarthritis, and pneumonia. She also has a previous history of kidney stones, status post lithotripsy. Current labs include a white count 6.6, hemoglobin 12.9, hematocrit 42.6, and a platelet count of 101,000. D-dimer is 2.31. Venous blood gases showed CO2 49 and a pH is 7.36. Sodium 140, potassium 4.7, chlorides 105, CO2 25, BUN 22, creatinine 0.69. The N-terminal proBNP is elevated at 5250. Troponins were negative 2. Urine showed 2+ protein and moderate blood and large leukocyte esterase, 93 RBCs 74 WBCs, rare bacteria, and occasional mucus. Testing for coronavirus was negative. Chest x-ray showed changes consistent with pulmonary edema/fluid overload. CT angiogram was negative for pulmonary embolism. Doppler of the lower semis was negative for DVT. Progress note dated 04/26/2023. 72-year-old obese female seen yesterday in the emergency department. Today, she is seen in room 368. The patient's currently on 3 L of oxygen. She is receiving Lasix and her fluid overload, and Ancef, for her lower extremity edema. Her lower extremity edema is a bit better today. She does feel a bit better today, less short of breath. Current laboratory data includes a glucose of 181. Testing for harper virus was negative. Troponin was less than 0.012, 2. Progress note dated 04/27/2023. 73-year-old female initially seen in the emergency department, but is seen in room 368 today. She continues on oxygen at 3 L. No IV fluids. For her cough, we ordered some Tessalon Perles. In addition, she continues on Ancef for her bilateral lower extremity cellulitis. Also, she is receiving diuretics, for her pulmonary edema. Today's laboratory data includes a glucose of 137. Testing for harper virus was negative. Blood cultures are negative. On today's evaluation of 04/28/2023, I'm seeing the patient for a follow-up. She is on 10 L of oxygen by nasal cannula. She is in for increased lower extremity edema, hypoxic respiratory failure, lower extremity infection. The patient has some mild cardiomegaly on her CT angiogram. No evidence of any pulmonary embolism. Her echocardiogram showed LV function with ejection fraction of 50-55%. She has severe RV dilatation and severe pulmonary hypertension and she may have an underlying obstructive sleep apnea. No recent CBC, most recent electrolytes show a BUN of 34 with a creatinine 1.1 and sodium level is at 138. She is currently on oxygen at 10 L she is on IV cefazolin. She is also on oral Lasix 40 mg by mouth daily. She remains on bronchodilators with albuterol HFA, IV Solu-Medrol 20 mg every 8 hours and Lovenox 40 mg subcu portably prophylaxis. On 04/29/2023, the patient is sitting up in a recliner. Doing well. She is down to 6 L of oxygen nasal cannula. She is still on Lasix. She is in a negative fluid balance. Labs from today are still pending. No other significant events overnight. No angina. No palpitations. No chest pain. Remains on albuterol HFA, IV Solu-Medrol 20 mg every 8 hours then Lovenox 40 mg subcu for DVT prophylaxis. On 04/30/2023, the patient is being seen for a follow-up. Doing well. No new complaints. The patient has been weaned down to 5 L of oxygen by nasal cannula with a pulse ox of 95%. The patient is diuresing adequately and the patient is a negative fluid balance of at least 2 L over the past 24 hours. The patient is currently on Lasix 40 mg by mouth daily. The patient is still on IV cefazolin regarding lower extremity cellulitis. Edema still present in the legs bilaterally. Blood work from today shows a BUN of 44 with a creatinine of 0.7. Sodium level is at 138. The risks count of 9.3 with a hemoglobin 15.1 and a platelet count of 243. No chest pain. No interval worsening shortness of breath. On 05/01/2023, the patient has been weaned down to 5 L. Her current pulse ox is 93%. She is making excellent urine output. Overall fluid balance is -2 L over the past 24 hours. She remains on Lasix 40 mg by mouth and the dose was increased up to twice a day. She remains on IV cefazolin. Lower extremity cellulitis is also improving. Mentally she is awake and alert and communicating. She is trying to increase her mobility. She is working with physical therapy. Blood work shows a sodium level of 141, BUN is 34 with a creatinine of 0.6. LFTs are normal. The viscosity 0.8 with a hemoglobin 15.4 and a platelet count of 178. Objective - Vital Signs Vital signs: Vital Signs Temp 97.7 F 05/01/23 08:20 Pulse 84 05/01/23 08:20 Resp 24 05/01/23 08:20 BP 153/76 05/01/23 08:20 Pulse Ox 95 05/01/23 08:20 FiO2 Intake & Output 04/30/23 05/01/23 05/01/23 18:59 06:59 18:59 Intake Total 520 240 698 Output Total 1000 600 700 Balance -480 -360 -2 Weight 164.5 kg 164.5 kg Intake: Intake, IV Titration 100 Amount ceFAZolin 3 gm In Sodium 100 Chloride 0.9% 100 ml @ 200 mls/hr IVPB Q8HR [facility] Rx#:[id number] Oral 520 240 598 Output: Urine 1000 600 700 Other: Voiding Method External Catheter External Catheter External Catheter # Bowel Movements 1 2 - Exam No acute distress, oriented 3. Currently on 5 L of oxygen. HEENT examination is grossly unremarkable. Neck supple. Full range of motion. No adenopathy thyromegaly or neck vein distention. Cardiovascular examination reveals regular rhythm rate. S1-S2 normal. No S3 or S4. No discernible murmur noted. Heart sounds are distant. Lungs reveal scattered crackles the patient has diminished breath on lung base bilaterally. No significant wheezes. Abdomen obese, without masses or tenderness. Bowel sounds are noted. Extremities are intact. No cyanosis or clubbing. After significant bilateral lower extremity edema. Her legs have been wrapped with BOGDAN bandages. Skin reveals cellulitic changes in the lower extremities. Neurologic examination is brief but nonfocal. - Labs CBC & Chem 7: 05/01/23 09:24 05/01/23 09:24 Labs: Abnormal Lab Results - Last 24 Hours (Table) 04/30/23 04/30/23 04/30/23 Range/Units 09:39 16:28 20:07 Hct (34.0-46.0) % MCHC (31.0-37.0) g/dL Lymphocytes # (1.0-4.8) k/uL Chloride (98-107) mmol/L Carbon Dioxide (22-30) mmol/L BUN (7-17) mg/dL Glucose (74-99) mg/dL POC Glucose (mg/dL) 146 H 255 H (70-110) mg/dL Hemoglobin A1c 8.1 H (<=6.0) % 05/01/23 05/01/23 05/01/23 Range/Units 06:28 09:24 09:24 Hct 46.5 H (34.0-46.0) % MCHC 28.8 L (31.0-37.0) g/dL Lymphocytes # 0.9 L (1.0-4.8) k/uL Chloride 97 L (98-107) mmol/L Carbon Dioxide 35 H (22-30) mmol/L BUN 34 H (7-17) mg/dL Glucose 152 H (74-99) mg/dL POC Glucose (mg/dL) 167 H (70-110) mg/dL Hemoglobin A1c (<=6.0) % 05/01/23 Range/Units 11:17 Hct (34.0-46.0) % MCHC (31.0-37.0) g/dL Lymphocytes # (1.0-4.8) k/uL Chloride (98-107) mmol/L Carbon Dioxide (22-30) mmol/L BUN (7-17) mg/dL Glucose (74-99) mg/dL POC Glucose (mg/dL) 168 H (70-110) mg/dL Hemoglobin A1c (<=6.0) % Assessment and Plan Plan: Acute hypoxic respiratory failure, currently on 5 L of oxygen by nasal cannula. Shortness of breath is multifactorial. There is an obvious component of CHF with preserved LV function and severe right-sided heart failure with RV dysfunction and massive fluid overload, improving with diuretics. Patient is currently on oral Lasix. Negative fluid balance. The patient continues to produce adequate amount of urine output for now. The patient is currently on Lasix and those will be modified to 40 mg twice a day. The patient has produced at least 2 L negative fluid balance over the past 24 hours. Rest or status is stable. Right ventricular failure with severe pulmonary hypertension Shortness of breath, consistent with fluid overload, given the x-ray changes, lower extremity edema, and elevated BNP. Clinically improving Probable cellulitis, bilateral lower extremities. The patient remains on IV cefazolin No evidence of pulmonary embolism or DVT. Morbid obesity. History of diabetes mellitus. History of vitamin D deficiency. Prior history of DVT. History of osteoarthritis. History of pneumonia. History of kidney stones. Stress urinary incontinence. Plan Wean down FiO2, to maintain a saturation above 90%, currently on 5 L, will try to wean her further Continue diuretics, continue Lasix and changed to 40 mg twice a day Fluid balance is negative Monitor fluid balance Provide incentive spirometer Monitor renal function, stable We'll continue to follow. Obvious features of obstructive sleep apnea and this is to be further worked up on outpatient basis. Work with physical therapy
--- NOTE | 2023-05-01 16:31 | P.PN ---
Subjective Progress Note Date: 05/01/23 Lorene Palma, is a 72-year-old female who presented with multiple complaints that have been occurring over the past few weeks. Patient reports she's had increased swelling to the lower extremity with weeping ulcers. Patient also reports she's had increased shortness of breath and cough. Patient also reports she's had tingling to hands bilaterally but has followed up with orthopedic surgeon outpatient. Patient has a past medical history of diabetes mellitus, DVT, I disorder, osteoporosis, pneumonia and macular degeneration. Chest x-ray completed showing marked interstitial phase pulmonary edema presumably cardiogenic etiology. Lab work revealing elevated d-dimer 2.31. CT of the chest performed showing trace pericardial effusion, scattered reticular infiltrates in the right upper lobe and both lung bases consider viral or interstitial pneumonia. Pulmonary arterial tree is adequately opacified with contrast no large central emboli are visible there is under opacification of a small segmental branch in the left lower lobe laterally no discrete thrombus is visible. This is of questioned significance small segmental pulmonary embolism cannot be excluded. Aortic arch is mildly calcified but nondilated. Will consult pulmonary services. Venous Doppler completed no deep vein thrombosis identified. Troponins negative. BNP elevated at 5250. UA positive for urinary tract infection. At this time patient will be admitted cardiology pulmonary service is consulted. Bilateral lower extremities noted for cellulitis. Infectious disease service is consulted patient started on IV antibiotics. 2-D echo ordered. COVID-19 negative. Patient started on IV Lasix On 04/26/2023 patient was seen and examined on the telemetry floor she is alert and oriented 3 in no apparent distress, she is complaining of bilateral lower extremity pain, site of cellulitis and ulcers, she is also complaining of left shoulder pain and shortness of breath with any activity, otherwise she denies any complaints there is no fever or chills no headache or dizziness no chest pain no cough no nausea or vomiting no abdominal pain no diarrhea no blood in the stools no burning with urination no frequency or urgency and no hematuria. At this time awaiting further recommendation from cardiology. Patient is maintained on IV antibiotic for bilateral lower extremity cellulitis with ulcers, awaiting further input from infectious disease. On 04/27/2023 patient alert and oriented 3. Patient reports improvement with lower infection many pain. Patient remains on IV cefazolin. Tessalon pearls added for cough. Pulmonary cardiology and infectious disease service is consulted. Vital signs temp 98.3, heart rate 97, respiratory rate 18, blood pressure 119/63 with pulse ox of 91% on 2 L On 04/28/2023 patient was seen and examined on the telemetry floor she is alert and oriented 3 in no apparent distress yesterday she had worsening shortness of breath at night with significant drop in her O2 sat duration down to the 70s O2 supplements was increased to 15 L high flow, pulmonary and cardiology are fol lowing patient is improving gradually during the day today, repeat chest x-ray ordered will follow closely. On 04/29/2023 patient is alert and oriented 3. Sliding scale insulin added. 97.9, heart rate 76, respiratory rate 14, blood pressure 112/73 with pulse ox of 94% on 6 L. Patient remains on IV Kefzol and IV steroids On 04/30/2023 patient is alert and oriented 3. Patient reports improvement with shortness of breath and bilateral leg pain. Oxygen decreasing to 5 L. Per pulmonary services steroids have been DC'd. Patient remains on IV antibiotics. Pulmonary, cardiology and infectious disease services following. Current vital signs temp 97.9, heart rate 80, respiratory rate 18, blood pressure 115/73 with pulse ox 93% on 5 L On 05/01/2023 patient was seen and examined on the telemetry floor she is alert and oriented 3 in no apparent distress there is no fever or chills no headache or dizziness she is still having shortness of breath she is still requiring 4 L of oxygen there is no chest pain no cough no nausea or vomiting no abdominal pain no diarrhea and no urinary symptoms, she remains on IV cefazolin for bilateral lower extremity cellulitis with ulcers. Objective - Vital Signs Vital signs: Vital Signs Temp 98.1 F 05/01/23 16:25 Pulse 86 05/01/23 16:25 Resp 24 05/01/23 16:25 BP 121/51 05/01/23 16:25 Pulse Ox 94 L 05/01/23 16:25 FiO2 Intake & Output 04/30/23 05/01/23 05/01/23 18:59 06:59 18:59 Intake Total 520 240 698 Output Total 9424 736 1247 Balance -484 -940 -9401 Weight 164.5 kg 164.5 kg Intake: Intake, IV Titration 100 Amount ceFAZolin 3 gm In Sodium 100 Chloride 0.9% 100 ml @ 200 mls/hr IVPB Q8HR [facility] Rx#:[id number] Oral 520 240 598 Output: Urine 1962 413 0360 Other: Voiding Method External Catheter External Catheter External Catheter # Bowel Movements 1 2 - Exam In general patient is alert and oriented x 3 in no distress HEENT head normocephalic and atraumatic Neck is supple no JVD no goiter no lymphadenopathy no carotid bruit Chest examination is clear to auscultation no crackles no wheezing Cardiac exam reveals regular heart sounds S1 and S2 no gallops no murmurs Abdomen is soft nontender no organomegaly with normal bowel sounds Extremity exam reveals bilateral pretibial erythema with superficial ulcers and 2+ edema Neurological examination reveals no gross focal deficits - Labs CBC & Chem 7: 05/01/23 09:24 05/01/23 09:24 Labs: Abnormal Lab Results - Last 24 Hours (Table) 04/30/23 04/30/23 04/30/23 Range/Units 09:39 16:28 20:07 Hct (34.0-46.0) % MCHC (31.0-37.0) g/dL Lymphocytes # (1.0-4.8) k/uL Chloride (98-107) mmol/L Carbon Dioxide (22-30) mmol/L BUN (7-17) mg/dL Glucose (74-99) mg/dL POC Glucose (mg/dL) 146 H 255 H (70-110) mg/dL Hemoglobin A1c 8.1 H (<=6.0) % 05/01/23 05/01/23 05/01/23 Range/Units 06:28 09:24 09:24 Hct 46.5 H (34.0-46.0) % MCHC 28.8 L (31.0-37.0) g/dL Lymphocytes # 0.9 L (1.0-4.8) k/uL Chloride 97 L (98-107) mmol/L Carbon Dioxide 35 H (22-30) mmol/L BUN 34 H (7-17) mg/dL Glucose 152 H (74-99) mg/dL POC Glucose (mg/dL) 167 H (70-110) mg/dL Hemoglobin A1c (<=6.0) % 05/01/23 Range/Units 11:17 Hct (34.0-46.0) % MCHC (31.0-37.0) g/dL Lymphocytes # (1.0-4.8) k/uL Chloride (98-107) mmol/L Carbon Dioxide (22-30) mmol/L BUN (7-17) mg/dL Glucose (74-99) mg/dL POC Glucose (mg/dL) 168 H (70-110) mg/dL Hemoglobin A1c (<=6.0) % Assessment and Plan Assessment: 1. Shortness of breath 2. CHF exacerbation. Noted elevated BNP. 2-D echo ordered patient started on IV Lasix 3. Elevated d-dimer. CTA performed negative venous Doppler 4. Possible pneumonia. Pulmonary service is consulted 5. Urinary tract infection urine culture ordered 6. Lower extremity cellulitis. Patient started on IV antibiotics infectious disease service is consulted 7. History of diabetes mellitus 8. History of DVT 9. History of pneumonia 10. History of macular degeneration DVT prophylaxis Lovenox. GI prophylaxis Protonix Cardiology, pulmonary and infectious disease service is consulted Patient started on IV Lasix Patient started on IV antibiotic Blood and urine cultures ordered Repeat labs ordered 2-D echo ordered
--- NOTE | 2023-05-01 16:32 | P.PN ---
Subjective Progress Note Date: 05/01/23 Principal diagnosis: Reason for follow-up is bilateral lower extremity cellulitis Patient is a 72-year-old female with a past medical history significant for diabetes mellitus DVT osteoarthritis pneumonia patient was brought into the hospital for evaluation of increasing swelling to bilateral lower extremity, patient has been diagnosed with bilateral lower extremity c ellulitis. On today's evaluation that is 05/01/2023, the patient continues to be afebrile and is breathing comfortably on 5 L nasal cannula oxygen, patient denies any chest pain and no cough or sputum production, patient denies abdominal pain, no nausea/vomiting and no diarrhea has been reported the patient bilateral lower extremity extremity pain and swelling has decreased in intensity Patient did have white count of 8.8 and a creatinine of 0.67 blood cultures are negative Objective - Vital Signs Vital signs: Vital Signs Temp 98 F 05/01/23 11:37 Pulse 76 05/01/23 11:37 Resp 24 05/01/23 11:37 BP 128/75 05/01/23 11:37 Pulse Ox 93 L 05/01/23 11:37 FiO2 Intake & Output 04/30/23 05/01/23 05/01/23 18:59 06:59 18:59 Intake Total 520 240 698 Output Total 3847 692 4055 Balance -634 -349 -2822 Weight 164.5 kg 164.5 kg Intake: Intake, IV Titration 100 Amount ceFAZolin 3 gm In Sodium 100 Chloride 0.9% 100 ml @ 200 mls/hr IVPB Q8HR [facility] Rx#:[id number] Oral 520 240 598 Output: Urine 0269 738 4540 Other: Voiding Method External Catheter External Catheter External Catheter # Bowel Movements 1 2 - Exam GENERAL DESCRIPTION: An elderly female lying in bed in no distress RESPIRATORY SYSTEM: Unlabored breathing , clear to auscultation anteriorly HEART: S1 S2 regular rate and rhythm , ABDOMEN: Soft , no tenderness EXTREMITIES: Bilateral lower extremity currently wrapped in Matthias wrap dressing changed this morning apparently redness has decreased - Labs CBC & Chem 7: 05/01/23 09:24 05/01/23 09:24 Labs: Abnormal Lab Results - Last 24 Hours (Table) 04/30/23 04/30/23 04/30/23 Range/Units 09:39 16:28 20:07 Hct (34.0-46.0) % MCHC (31.0-37.0) g/dL Lymphocytes # (1.0-4.8) k/uL Chloride (98-107) mmol/L Carbon Dioxide (22-30) mmol/L BUN (7-17) mg/dL Glucose (74-99) mg/dL POC Glucose (mg/dL) 146 H 255 H (70-110) mg/dL Hemoglobin A1c 8.1 H (<=6.0) % 05/01/23 05/01/23 05/01/23 Range/Units 06:28 09:24 09:24 Hct 46.5 H (34.0-46.0) % MCHC 28.8 L (31.0-37.0) g/dL Lymphocytes # 0.9 L (1.0-4.8) k/uL Chloride 97 L (98-107) mmol/L Carbon Dioxide 35 H (22-30) mmol/L BUN 34 H (7-17) mg/dL Glucose 152 H (74-99) mg/dL POC Glucose (mg/dL) 167 H (70-110) mg/dL Hemoglobin A1c (<=6.0) % 05/01/23 Range/Units 11:17 Hct (34.0-46.0) % MCHC (31.0-37.0) g/dL Lymphocytes # (1.0-4.8) k/uL Chloride (98-107) mmol/L Carbon Dioxide (22-30) mmol/L BUN (7-17) mg/dL Glucose (74-99) mg/dL POC Glucose (mg/dL) 168 H (70-110) mg/dL Hemoglobin A1c (<=6.0) % Assessment and Plan (1) Bilateral lower leg cellulitis Current Visit: Yes Status: Acute Code(s): L03.116 - CELLULITIS OF LEFT LOWER LIMB; L03.115 - CELLULITIS OF RIGHT LOWER LIMB SNOMED Code(s): 891624502 (2) Penicillin allergy Current Visit: Yes Status: Acute Code(s): Z88.0 - ALLERGY STATUS TO PENICILLIN SNOMED Code(s): 08916710 Plan: 1patient presented to hospital with increasing swelling to bilateral lower extremity patient did have evidence of erythema warmth and tenderness to touch concerning for cellulitis likely from gram-positive skin poli such as trapped less likely MRSA or gram-negative infection 2-positive UA but no urinary symptoms more likely asymptomatic bacteriuria 3patient to continue-Aquacel silver dressing to the open area followed by Matthias wrap dressing to be changed every 48 hours 4patient to continue with the cefazolin and will reevaluate lower extremity at the time of dressing change tomorrow and monitor clinical course closely Dictation was produced using [employer] dictation software. please excuse any grammatical, word or spelling errors. Time with Patient: Less than 30
[2023-05-01 17:01] LABS: Glucose,Whole Blood 146 mg/dL (70-110)
[2023-05-01 20:17] LABS: Glucose,Whole Blood 195 mg/dL (70-110)
[2023-05-01] MEDS: OXYBUTYNIN 10 MG TAB.ER.24 PO SCH (21:01)
[2023-05-01] MEDS: traMADol 50 MG TAB PO PRN (23:32)
[2023-05-02 05:56] LABS: Glucose,Whole Blood 156 mg/dL (70-110)
[2023-05-02] MEDS: INSULIN ASPART (NovoLOG) 100 UNIT/ML VIAL SQ SCH ×4 (06:25→21:26)
[2023-05-02] MEDS: PANTOPRAZOLE 40 MG TABLET PO SCH (06:25)
[2023-05-02] MEDS: METOPROLOL SUCCINATE (ER) 25 MG TAB.ER.24H PO SCH ×2 (08:48→21:24)
[2023-05-02] MEDS: ATORVASTATIN 20 MG TAB PO SCH (08:48)
[2023-05-02] MEDS: DAPAGLIFLOZIN PROPANEDIOL 10 MG TABLET PO SCH (08:48)
[2023-05-02] MEDS: metFORMIN 500 MG TAB PO SCH ×2 (08:48→21:24)
[2023-05-02] MEDS: FUROSEMIDE 40 MG TAB PO SCH ×2 (08:48→15:36)
[2023-05-02] MEDS: ASPIRIN 81 MG PO SCH ×2 (08:48→21:24)
[2023-05-02] MEDS: BENZONATATE 100 MG CAP PO SCH ×3 (08:48→21:24)
[2023-05-02] MEDS: CHOLECALCIFEROL 25 MCG (1000 IU) TABLET PO SCH ×2 (08:48→21:24)
[2023-05-02] MEDS: ceFAZolin 3 GM in SODIUM CHLORIDE 0.9% 100 ML IVPB SCH ×2 (08:49→15:36)
[2023-05-02] MEDS: ENOXAPARIN 40 MG/0.4 ML SYRINGE SQ SCH (08:49)
[2023-05-02 08:57] LABS: Basophils # (A) 0.1 k/uL (0-0.2); Basophils % (A) 1 %; Eosinophils # (A) 0.6 k/uL (0-0.7); Eosinophils % (A) 8 %; HGB 13.4 gm/dL (11.4-16.0); Hypochromasia Marked; Lymphocytes # (A) 0.9 k/uL (1.0-4.8); Lymphocytes % (A) 11 %; MCH 29.2 pg (25.0-35.0); MCHC 29.9 g/dL (31.0-37.0); MCV 97.6 fL (80.0-100.0); Mean Platelet Volume 9.3; Monocytes # (A) 0.5 k/uL (0-1.0); Monocytes % (A) 6 %; Neutrophils # (A) 6.1 k/uL (1.3-7.7); Neutrophils % (A) 74 %; Platelet Count 181 k/uL (150-450); RBC 4.61 m/uL (3.80-5.40); RDW 15.5 % (11.5-15.5); WBC 8.2 k/uL (3.8-10.6)
[2023-05-02 09:49] LABS: ALT 8 U/L (4-34); AST 19 U/L (14-36); African American GFR (CKD) >90 (>60 ml/min/1.73 sqM); Albumin 3.1 g/dL (3.5-5.0); Alkaline Phosphatase 78 U/L (38-126); Blood Urea Nitrogen 28 mg/dL (7-17); Calcium 8.8 mg/dL (8.4-10.2); Chloride 92 mmol/L (98-107); Glucose 137 mg/dL (74-99); Non-African American GFR(CKD) 90 (>60 ml/min/1.73 sqM); Sodium 140 mmol/L (137-145); Total Bilirubin 0.9 mg/dL (0.2-1.3); Total Protein 5.8 g/dL (6.3-8.2)
[2023-05-02 09:54] LABS: Anion Gap 9 mmol/L
[2023-05-02 09:55] LABS: Carbon Dioxide 39 mmol/L (22-30)
--- NOTE | 2023-05-02 10:15 | P.PN ---
Subjective Progress Note Date: 05/02/23 Lorene Palma, is a 72-year-old female who presented with multiple complaints that have been occurring over the past few weeks. Patient reports she's had increased swelling to the lower extremity with weeping ulcers. Patient also reports she's had increased shortness of breath and cough. Patient also reports she's had tingling to hands bilaterally but has followed up with orthopedic surgeon outpatient. Patient has a past medical history of diabetes mellitus, DVT, I disorder, osteoporosis, pneumonia and macular degeneration. Chest x-ray completed showing marked interstitial phase pulmonary edema presumably cardiogenic etiology. Lab work revealing elevated d-dimer 2.31. CT of the chest performed showing trace pericardial effusion, scattered reticular infiltrates in the right upper lobe and both lung bases consider viral or interstitial pneumonia. Pulmonary arterial tree is adequately opacified with contrast no large central emboli are visible there is under opacification of a small segmental branch in the left lower lobe laterally no discrete thrombus is visible. This is of questioned significance small segmental pulmonary embolism cannot be excluded. Aortic arch is mildly calcified but nondilated. Will consult pulmonary services. Venous Doppler completed no deep vein thrombosis identified. Troponins negative. BNP elevated at 5250. UA positive for urinary tract infection. At this time patient will be admitted cardiology pulmonary service is consulted. Bilateral lower extremities noted for cellulitis. Infectious disease service is consulted patient started on IV antibiotics. 2-D echo ordered. COVID-19 negative. Patient started on IV Lasix On 04/26/2023 patient was seen and examined on the telemetry floor she is alert and oriented 3 in no apparent distress, she is complaining of bilateral lower extremity pain, site of cellulitis and ulcers, she is also complaining of left shoulder pain and shortness of breath with any activity, otherwise she denies any complaints there is no fever or chills no headache or dizziness no chest pain no cough no nausea or vomiting no abdominal pain no diarrhea no blood in the stools no burning with urination no frequency or urgency and no hematuria. At this time awaiting further recommendation from cardiology. Patient is maintained on IV antibiotic for bilateral lower extremity cellulitis with ulcers, awaiting further input from infectious disease. On 04/27/2023 patient alert and oriented 3. Patient reports improvement with lower infection many pain. Patient remains on IV cefazolin. Tessalon pearls added for cough. Pulmonary cardiology and infectious disease service is consulted. Vital signs temp 98.3, heart rate 97, respiratory rate 18, blood pressure 119/63 with pulse ox of 91% on 2 L On 04/28/2023 patient was seen and examined on the telemetry floor she is alert and oriented 3 in no apparent distress yesterday she had worsening shortness of breath at night with significant drop in her O2 sat duration down to the 70s O2 supplements was increased to 15 L high flow, pulmonary and cardiology are fol lowing patient is improving gradually during the day today, repeat chest x-ray ordered will follow closely. On 04/29/2023 patient is alert and oriented 3. Sliding scale insulin added. 97.9, heart rate 76, respiratory rate 14, blood pressure 112/73 with pulse ox of 94% on 6 L. Patient remains on IV Kefzol and IV steroids On 04/30/2023 patient is alert and oriented 3. Patient reports improvement with shortness of breath and bilateral leg pain. Oxygen decreasing to 5 L. Per pulmonary services steroids have been DC'd. Patient remains on IV antibiotics. Pulmonary, cardiology and infectious disease services following. Current vital signs temp 97.9, heart rate 80, respiratory rate 18, blood pressure 115/73 with pulse ox 93% on 5 L On 05/01/2023 patient was seen and examined on the telemetry floor she is alert and oriented 3 in no apparent distress there is no fever or chills no headache or dizziness she is still having shortness of breath she is still requiring 4 L of oxygen there is no chest pain no cough no nausea or vomiting no abdominal pain no diarrhea and no urinary symptoms, she remains on IV cefazolin for bilateral lower extremity cellulitis with ulcers. On 05/02/2023 patient is alert and oriented 3. Current vital signs temp 98, heart rate 86, respiratory rate 22, blood pressure 128/76 with a pulse ox 92% on 5 L. By mouth Lasix increased to twice daily. Patient remains on IV antibiotics. Infectious disease pulmonary and cardiology services following Objective - Vital Signs Vital signs: Vital Signs Temp 98 F 05/02/23 08:00 Pulse 86 05/02/23 08:00 Resp 22 05/02/23 08:00 BP 128/76 05/02/23 08:00 Pulse Ox 92 L 05/02/23 08:00 FiO2 Intake & Output 05/01/23 05/02/23 05/02/23 18:59 06:59 18:59 Intake Total 1278 540 240 Output Total 3300 850 Balance -2021 240 Weight 164.5 kg 157 kg Intake: Intake, IV Titration 100 Amount ceFAZolin 3 gm In Sodium 100 Chloride 0.9% 100 ml @ 200 mls/hr IVPB Q8HR [facility] Rx#:[id number] Oral 1178 540 240 Output: Urine 3300 850 Other: Voiding Method External Catheter External Catheter External Catheter # Bowel Movements 2 - Exam In general patient is alert and oriented x 3 in no distress HEENT head normocephalic and atraumatic Neck is supple no JVD no goiter no lymphadenopathy no carotid bruit Chest examination is clear to auscultation no crackles no wheezing Cardiac exam reveals regular heart sounds S1 and S2 no gallops no murmurs Abdomen is soft nontender no organomegaly with normal bowel sounds Extremity exam reveals bilateral pretibial erythema with superficial ulcers and 2+ edema Neurological examination reveals no gross focal deficits - Labs CBC & Chem 7: 05/02/23 08:06 05/02/23 08:06 Labs: Abnormal Lab Results - Last 24 Hours (Table) 05/01/23 05/01/23 05/01/23 Range/Units 09:24 09:24 11:17 Hct 46.5 H (34.0-46.0) % MCHC 28.8 L (31.0-37.0) g/dL Lymphocytes # 0.9 L (1.0-4.8) k/uL Chloride 97 L (98-107) mmol/L Carbon Dioxide 35 H (22-30) mmol/L BUN 34 H (7-17) mg/dL Glucose 152 H (74-99) mg/dL POC Glucose (mg/dL) 168 H (70-110) mg/dL Total Protein (6.3-8.2) g/dL Albumin (3.5-5.0) g/dL 05/01/23 05/01/23 05/02/23 Range/Units 16:39 20:15 05:54 Hct (34.0-46.0) % MCHC (31.0-37.0) g/dL Lymphocytes # (1.0-4.8) k/uL Chloride (98-107) mmol/L Carbon Dioxide (22-30) mmol/L BUN (7-17) mg/dL Glucose (74-99) mg/dL POC Glucose (mg/dL) 146 H 195 H 156 H (70-110) mg/dL Total Protein (6.3-8.2) g/dL Albumin (3.5-5.0) g/dL 05/02/23 05/02/23 Range/Units 08:06 08:06 Hct (34.0-46.0) % MCHC 29.9 L (31.0-37.0) g/dL Lymphocytes # 0.9 L (1.0-4.8) k/uL Chloride 92 L (98-107) mmol/L Carbon Dioxide 39 H (22-30) mmol/L BUN 28 H (7-17) mg/dL Glucose 137 H (74-99) mg/dL POC Glucose (mg/dL) (70-110) mg/dL Total Protein 5.8 L (6.3-8.2) g/dL Albumin 3.1 L (3.5-5.0) g/dL Assessment and Plan Assessment: 1. Shortness of breath 2. CHF exacerbation. Noted elevated BNP. 2-D echo ordered patient started on IV Lasix 3. Elevated d-dimer. CTA performed negative venous Doppler 4. Possible pneumonia. Pulmonary service is consulted 5. Urinary tract infection urine culture ordered 6. Lower extremity cellulitis. Patient started on IV antibiotics infectious disease service is consulted 7. History of diabetes mellitus 8. History of DVT 9. History of pneumonia 10. History of macular degeneration DVT prophylaxis Lovenox. GI prophylaxis Protonix Cardiology, pulmonary and infectious disease service is consulted Patient started on IV antibiotic Maintained on by mouth Lasix
[2023-05-02 11:29] LABS: Glucose,Whole Blood 171 mg/dL (70-110)
--- NOTE | 2023-05-02 13:14 | P.PN ---
Subjective Progress Note Date: 05/02/23 72-year-old female seen in the emergency department, room 15. She's here with her . She apparently presented to the emergency department, on April 24, with multiple complaints including leg swelling, shortness of breath, cough, and generally just not feeling well. She also has some tingling to her hands bilaterally, and apparently has been seen by one of the hand surgeons. The patient is laying flat in bed. She is on a couple liters of oxygen. She's not receiving any IV fluids. She tells me that she has cellulitis of the lower extremities. She is a rather large woman. She also tells me that her only major medical problem is diabetes mellitus. Although, she apparently has a his tory of DVT, osteoarthritis, and pneumonia. She also has a previous history of kidney stones, status post lithotripsy. Current labs include a white count 6.6, hemoglobin 12.9, hematocrit 42.6, and a platelet count of 101,000. D-dimer is 2.31. Venous blood gases showed CO2 49 and a pH is 7.36. Sodium 140, potassium 4.7, chlorides 105, CO2 25, BUN 22, creatinine 0.69. The N-terminal proBNP is elevated at 5250. Troponins were negative 2. Urine showed 2+ protein and moderate blood and large leukocyte esterase, 93 RBCs 74 WBCs, rare bacteria, and occasional mucus. Testing for coronavirus was negative. Chest x-ray showed changes consistent with pulmonary edema/fluid overload. CT angiogram was negative for pulmonary embolism. Doppler of the lower semis was negative for DVT. Progress note dated 04/26/2023. 72-year-old obese female seen yesterday in the emergency department. Today, she is seen in room 368. The patient's currently on 3 L of oxygen. She is receiving Lasix and her fluid overload, and Ancef, for her lower extremity edema. Her lower extremity edema is a bit better today. She does feel a bit better today, less short of breath. Current laboratory data includes a glucose of 181. Testing for harper virus was negative. Troponin was less than 0.012, 2. Progress note dated 04/27/2023. 73-year-old female initially seen in the emergency department, but is seen in room 368 today. She continues on oxygen at 3 L. No IV fluids. For her cough, we ordered some Tessalon Perles. In addition, she continues on Ancef for her bilateral lower extremity cellulitis. Also, she is receiving diuretics, for her pulmonary edema. Today's laboratory data includes a glucose of 137. Testing for harper virus was negative. Blood cultures are negative. On today's evaluation of 04/28/2023, I'm seeing the patient for a follow-up. She is on 10 L of oxygen by nasal cannula. She is in for increased lower extremity edema, hypoxic respiratory failure, lower extremity infection. The patient has some mild cardiomegaly on her CT angiogram. No evidence of any pulmonary embolism. Her echocardiogram showed LV function with ejection fraction of 50-55%. She has severe RV dilatation and severe pulmonary hypertension and she may have an underlying obstructive sleep apnea. No recent CBC, most recent electrolytes show a BUN of 34 with a creatinine 1.1 and sodium level is at 138. She is currently on oxygen at 10 L she is on IV cefazolin. She is also on oral Lasix 40 mg by mouth daily. She remains on bronchodilators with albuterol HFA, IV Solu-Medrol 20 mg every 8 hours and Lovenox 40 mg subcu portably prophylaxis. On 04/29/2023, the patient is sitting up in a recliner. Doing well. She is down to 6 L of oxygen nasal cannula. She is still on Lasix. She is in a negative fluid balance. Labs from today are still pending. No other significant events overnight. No angina. No palpitations. No chest pain. Remains on albuterol HFA, IV Solu-Medrol 20 mg every 8 hours then Lovenox 40 mg subcu for DVT prophylaxis. On 04/30/2023, the patient is being seen for a follow-up. Doing well. No new complaints. The patient has been weaned down to 5 L of oxygen by nasal cannula with a pulse ox of 95%. The patient is diuresing adequately and the patient is a negative fluid balance of at least 2 L over the past 24 hours. The patient is currently on Lasix 40 mg by mouth daily. The patient is still on IV cefazolin regarding lower extremity cellulitis. Edema still present in the legs bilaterally. Blood work from today shows a BUN of 44 with a creatinine of 0.7. Sodium level is at 138. The risks count of 9.3 with a hemoglobin 15.1 and a platelet count of 243. No chest pain. No interval worsening shortness of breath. On 05/01/2023, the patient has been weaned down to 5 L. Her current pulse ox is 93%. She is making excellent urine output. Overall fluid balance is -2 L over the past 24 hours. She remains on Lasix 40 mg by mouth and the dose was increased up to twice a day. She remains on IV cefazolin. Lower extremity cellulitis is also improving. Mentally she is awake and alert and communicating. She is trying to increase her mobility. She is working with physical therapy. Blood work shows a sodium level of 141, BUN is 34 with a creatinine of 0.6. LFTs are normal. The viscosity 0.8 with a hemoglobin 15.4 and a platelet count of 178. on today's evaluation of 05/02/2023, the patient is still on 5 L of O2 nasal cannula. She is producing excellent urine output. There is significant improvement in lower extremity edema and the wound over the right lower extremity so is essentially eating at this point in time. There is no active drainage. The wound is very healthy-looking. Edema lower extremity is also improving. Meanwhile, the patient remains on oral Lasix. Fluid balance is negative at least 2 L over the past 24 hours.White cell count of 8.2 with a hemoglobin of 13.4 and a platelet count of 181. BUN is at 28 with a creatinine of 0.6 and a sodium level is at 140. Potassium levels at 4.0. The patient r emains on IV cefazolin. The patient is on Lasix 40 mg by mouth twice a day. Rest of the medications remain unchanged. The patient and KVO. We will balance is -2.3 L over the past 24 hours. Objective - Vital Signs Vital signs: Vital Signs Temp 98 F 05/02/23 08:00 Pulse 86 05/02/23 08:00 Resp 22 05/02/23 08:00 BP 128/76 05/02/23 08:00 Pulse Ox 92 L 05/02/23 08:00 FiO2 Intake & Output 05/01/23 05/02/23 05/02/23 18:59 06:59 18:59 Intake Total 1278 540 240 Output Total 3300 850 Balance -2021 -310 240 Weight 164.5 kg 157 kg Intake: Intake, IV Titration 100 Amount ceFAZolin 3 gm In Sodium 100 Chloride 0.9% 100 ml @ 200 mls/hr IVPB Q8HR [facility] Rx#:[id number] Oral 1178 540 240 Output: Urine 3300 850 Other: Voiding Method External Catheter External Catheter External Catheter # Bowel Movements 2 - Exam No acute distress, oriented 3. Currently on 5 L of oxygen. HEENT examination is grossly unremarkable. Neck supple. Full range of motion. No adenopathy thyromegaly or neck vein distention. Cardiovascular examination reveals regular rhythm rate. S1-S2 normal. No S3 or S4. No discernible murmur noted. Heart sounds are distant. Lungs reveal scattered crackles the patient has diminished breath on lung base bilaterally. No significant wheezes. Abdomen obese, without masses or tenderness. Bowel sounds are noted. Extremities are intact. No cyanosis or clubbing. After significant bilateral lower extremity edema. Her legs have been wrapped with BOGDAN bandages. Skin reveals cellulitic changes in the lower extremities. Neurologic examination is brief but nonfocal. - Labs CBC & Chem 7: 05/02/23 08:06 05/02/23 08:06 Labs: Abnormal Lab Results - Last 24 Hours (Table) 05/01/23 05/01/23 05/01/23 Range/Units 11:17 16:39 20:15 MCHC (31.0-37.0) g/dL Lymphocytes # (1.0-4.8) k/uL Chloride (98-107) mmol/L Carbon Dioxide (22-30) mmol/L BUN (7-17) mg/dL Glucose (74-99) mg/dL POC Glucose (mg/dL) 168 H 146 H 195 H (70-110) mg/dL Total Protein (6.3-8.2) g/dL Albumin (3.5-5.0) g/dL 05/02/23 05/02/23 05/02/23 Range/Units 05:54 08:06 08:06 MCHC 29.9 L (31.0-37.0) g/dL Lymphocytes # 0.9 L (1.0-4.8) k/uL Chloride 92 L (98-107) mmol/L Carbon Dioxide 39 H (22-30) mmol/L BUN 28 H (7-17) mg/dL Glucose 137 H (74-99) mg/dL POC Glucose (mg/dL) 156 H (70-110) mg/dL Total Protein 5.8 L (6.3-8.2) g/dL Albumin 3.1 L (3.5-5.0) g/dL Assessment and Plan Plan: Acute hypoxic respiratory failure, currently on 5 L of oxygen by nasal cannula. Shortness of breath is multifactorial. There is an obvious component of CHF with preserved LV function and severe right-sided heart failure with RV dysfunction and massive fluid overload, improving with diuretics. Patient is currently on oral Lasix. Negative fluid balance. The patient continues to produce adequate amount of urine output for now. patient is doing well. She'll be further weaned on 100 FiO2. Right ventricular failure with severe pulmonary hypertension Shortness of breath, consistent with fluid overload, given the x-ray changes, lower extremity edema, and elevated BNP. Clinically improving Probable cellulitis, bilateral lower extremities. The patient remains on IV cefazolin, and inspection of the right lower extremity so wound shows significant improvement. No evidence of pulmonary embolism or DVT. Morbid obesity. History of diabetes mellitus. History of vitamin D deficiency. Prior history of DVT. History of osteoarthritis. History of pneumonia. History of kidney stones. Stress urinary incontinence. Plan no new complaints and overall condition is stable. Shortness of breath is stable. Wean down FiO2, to maintain a saturation above 90%, currently on 5 L, will try to wean her further Continue diuretics, continue Lasix and changed to 40 mg twice a day Fluid balance is negative Monitor fluid balance Provide incentive spirometer Monitor renal function, stable We'll continue to follow. Obvious features of obstructive sleep apnea and this is to be further worked up on outpatient basis. Work with physical therapy
[2023-05-02] MEDS: SPIRONOLACTONE 25 MG TAB PO SCH (13:34)
--- NOTE | 2023-05-02 13:55 | P.PN ---
Subjective Progress Note Date: 05/02/23 This is a 72-year-old female with a past medical history significant for diabetes and morbid obesity. Patient does not follow with a edger technician. We have been asked to see the patient in consultation for new onset CHF. Patient examined at the bedside in the emergency room. Patient states that she presented to the hospital due to shortness of breath with exertion and increased lower extremity edema. She also reports her hands were swollen and sore. The patient was diagnosed with pneumonia and was started on antibiotics. She was also found to be in acute congestive heart failure and was started on IV Lasix 40 mg every 12 hours. The patient denies a previous history of congestive heart failure. She states that she does have some chronic lower extremity edema at baseline and sees Dr. Hennessy on an outpatient basis regarding this. She states that he had prescribed her KUSH hose in the past. The patient denies a history of obstructive sleep apnea but states that she was supposed to have a sleep study performed in which she has not done yet. * EKG reveals sinus mechanism with no signs of acute ischemia * Chest xray marked interstitial phase pulmonary edema * Laboratory data: D-dimer 2.31. Troponin negative 3. ProBNP 5250 * Current home cardiac medications include aspirin 81 mg twice a day * Chest CTA: Negative for pulmonary embolism. Moderate to severe coronary calcifications. No evidence of RV dysfunction. Scattered reticular infiltrates in the right upper lobe and both lung bases. Consider bilateral interstitial pneumonia. No large central embolism is visible. A small segmental pulmonary embolus and cannot be excluded. * Lower extremity Doppler: Negative for DVT 05/02 Patient has been treated for [id number] heart failure with preserved EF e xacerbation and was transitioned to oral Lasix and cardiology signed off. Yesterday, consult was added for CHF. Patient is being treated for pneumonia as well as bilateral lower extremity cellulitis with ulcers. She is currently on oral Lasix 40 mg twice daily which was increased in frequency yesterday by pulmonary medicine. Blood pressure 128/76, heart rate in the 80s, afebrile, pulse ox 92% on 4 L nasal cannula. Repeat blood work today reveals potassium 4, CO2 39, BUN 28 creatinine 0.63. States that her breathing is little bit better. She continues of cough with yellow sputum production. She states she has lower extremity edema on and off for some time. Patient is requesting follow-up with Dr. Carrasquillo at the time of discharge because her also sees Dr. Carrasquillo. PHYSICAL EXAM: VITAL SIGNS: Reviewed. GENERAL: Well-developed in no acute distress. HEENT: Head is normocephalic. Pupils are equal, round. Sclerae anicteric. Mucous membranes of the mouth are moist. Neck supple. No JVD or thyromegaly LUNGS: Respirations even and unlabored. Lungs essentially clear to auscultation bilaterally. HEART: Regular rate and rhythm. S1 and S2 heard. ABDOMEN: Soft. Nondistended. Nontender. EXTREMITIES: Normal range of motion. No clubbing or cyanosis. Peripheral pulses intact. Bilateral lower extremity edema noted. NEUROLOGIC: Awake and alert. Oriented x 3. ASSESSMENT: Bilateral pneumonia [id number] HFpEF exacerbation, currently euvolemic Moderate to severe coronary calcifications, per computed tomography scan Diabetes Morbid obesity: BMI 50.6 Cellulitis of the bilateral lower extremities PLAN: Continue Lasix 40 mg by mouth twice daily Continue Farxiga 10 mg daily Continue metoprolol 25 mg daily aspirin and statins Add Aldactone 25 mg daily. Continue treatment of pneumonia per primary medicine Patient will follow up with Dr. Carrasquillo in one to 2 weeks at the time of discharge. Nurse practitioner note has been reviewed, I agree with the documented findings and plan of care. Patient was seen and examined. Objective - Vital Signs Vital signs: Vital Signs Temp 98 F 05/02/23 08:00 Pulse 86 05/02/23 08:00 Resp 22 05/02/23 08:00 BP 128/76 05/02/23 08:00 Pulse Ox 92 L 05/02/23 08:00 FiO2 Intake & Output 05/01/23 05/02/23 05/02/23 18:59 06:59 18:59 Intake Total 1278 540 240 Output Total 3300 850 Balance -2021 240 Weight 164.5 kg 157 kg Intake: Intake, IV Titration 100 Amount ceFAZolin 3 gm In Sodium 100 Chloride 0.9% 100 ml @ 200 mls/hr IVPB Q8HR [facility] Rx#:[id number] Oral [id number] 540 240 Output: Urine 3300 850 Other: Voiding Method External Catheter External Catheter External Catheter # Bowel Movements 2 - Labs CBC & Chem 7: 05/02/23 08:06 05/02/23 08:06 Labs: Abnormal Lab Results - Last 24 Hours (Table) 05/01/23 05/01/23 05/01/23 Range/Units 09:24 09:24 11:17 Hct 46.5 H (34.0-46.0) % MCHC 28.8 L (31.0-37.0) g/dL Lymphocytes # 0.9 L (1.0-4.8) k/uL Chloride 97 L (98-107) mmol/L Carbon Dioxide 35 H (22-30) mmol/L BUN 34 H (7-17) mg/dL Glucose 152 H (74-99) mg/dL POC Glucose (mg/dL) 168 H (70-110) mg/dL Total Protein (6.3-8.2) g/dL Albumin (3.5-5.0) g/dL 05/01/23 05/01/23 05/02/23 Range/Units 16:39 20:15 05:54 Hct (34.0-46.0) % MCHC (31.0-37.0) g/dL Lymphocytes # (1.0-4.8) k/uL Chloride (98-107) mmol/L Carbon Dioxide (22-30) mmol/L BUN (7-17) mg/dL Glucose (74-99) mg/dL POC Glucose (mg/dL) 146 H 195 H 156 H (70-110) mg/dL Total Protein (6.3-8.2) g/dL Albumin (3.5-5.0) g/dL 05/02/23 05/02/23 Range/Units 08:06 08:06 Hct (34.0-46.0) % MCHC 29.9 L (31.0-37.0) g/dL Lymphocytes # 0.9 L (1.0-4.8) k/uL Chloride 92 L (98-107) mmol/L Carbon Dioxide 39 H (22-30) mmol/L BUN 28 H (7-17) mg/dL Glucose 137 H (74-99) mg/dL POC Glucose (mg/dL) (70-110) mg/dL Total Protein 5.8 L (6.3-8.2) g/dL Albumin 3.1 L (3.5-5.0) g/dL
[2023-05-02 16:37] LABS: Glucose,Whole Blood 286 mg/dL (70-110)
[2023-05-02 20:06] LABS: Glucose,Whole Blood 241 mg/dL (70-110)
[2023-05-02] MEDS: OXYBUTYNIN 10 MG TAB.ER.24 PO SCH (21:24)
[2023-05-03] MEDS: ceFAZolin 3 GM in SODIUM CHLORIDE 0.9% 100 ML IVPB SCH ×3 (00:16→16:32)
[2023-05-03 05:05] LABS: Basophils # (A) 0.1 k/uL (0-0.2); Basophils % (A) 0 %; Eosinophils # (A) 0.5 k/uL (0-0.7); Eosinophils % (A) 5 %; HCT 46.1 % (34.0-46.0); HGB 13.8 gm/dL (11.4-16.0); Hypochromasia Marked; Lymphocytes # (A) 1.2 k/uL (1.0-4.8); Lymphocytes % (A) 11 %; MCH 29.6 pg (25.0-35.0); MCV 98.9 fL (80.0-100.0); Macrocytosis Slight; Mean Platelet Volume 9.8; Monocytes # (A) 0.6 k/uL (0-1.0); Monocytes % (A) 5 %; Neutrophils # (A) 8.7 k/uL (1.3-7.7); Neutrophils % (A) 78 %; Platelet Count 181 k/uL (150-450); RBC 4.66 m/uL (3.80-5.40); RDW 15.6 % (11.5-15.5); WBC 11.1 k/uL (3.8-10.6)
[2023-05-03 05:15] LABS: ALT 7 U/L (4-34); AST 18 U/L (14-36); African American GFR (CKD) >90 (>60 ml/min/1.73 sqM); Albumin 3.2 g/dL (3.5-5.0); Alkaline Phosphatase 81 U/L (38-126); Blood Urea Nitrogen 28 mg/dL (7-17); Calcium 8.8 mg/dL (8.4-10.2); Chloride 92 mmol/L (98-107); Glucose 144 mg/dL (74-99); Non-African American GFR(CKD) 89 (>60 ml/min/1.73 sqM); Potassium 3.8 mmol/L (3.5-5.1); Sodium 140 mmol/L (137-145); Total Bilirubin 1.2 mg/dL (0.2-1.3)
[2023-05-03 05:22] LABS: Anion Gap 7 mmol/L
[2023-05-03 05:51] LABS: Carbon Dioxide 41 mmol/L (22-30)
[2023-05-03 07:37] LABS: Glucose,Whole Blood 146 mg/dL (70-110)
[2023-05-03] MEDS: INSULIN ASPART (NovoLOG) 100 UNIT/ML VIAL SQ SCH ×4 (07:42→21:13)
[2023-05-03] MEDS: acetaZOLAMIDE 250 MG TAB PO SCH ×2 (09:14→22:31)
[2023-05-03] MEDS: DAPAGLIFLOZIN PROPANEDIOL 10 MG TABLET PO SCH (09:14)
[2023-05-03] MEDS: PANTOPRAZOLE 40 MG TABLET PO SCH (09:15)
[2023-05-03] MEDS: ASPIRIN 81 MG PO SCH ×2 (09:15→21:14)
[2023-05-03] MEDS: BENZONATATE 100 MG CAP PO SCH ×3 (09:15→21:15)
[2023-05-03] MEDS: ENOXAPARIN 40 MG/0.4 ML SYRINGE SQ SCH (09:15)
[2023-05-03] MEDS: FUROSEMIDE 40 MG TAB PO SCH ×2 (09:15→16:32)
[2023-05-03] MEDS: CHOLECALCIFEROL 25 MCG (1000 IU) TABLET PO SCH ×2 (09:15→21:14)
[2023-05-03] MEDS: METOPROLOL SUCCINATE (ER) 25 MG TAB.ER.24H PO SCH ×2 (09:15→21:15)
[2023-05-03] MEDS: metFORMIN 500 MG TAB PO SCH ×2 (09:15→21:14)
[2023-05-03] MEDS: SPIRONOLACTONE 25 MG TAB PO SCH (09:15)
[2023-05-03] MEDS: ATORVASTATIN 20 MG TAB PO SCH (09:15)
--- NOTE | 2023-05-03 10:15 | P.PN ---
Subjective Progress Note Date: 05/03/23 Lorene Palma, is a 72-year-old female who presented with multiple complaints that have been occurring over the past few weeks. Patient reports she's had increased swelling to the lower extremity with weeping ulcers. Patient also reports she's had increased shortness of breath and cough. Patient also reports she's had tingling to hands bilaterally but has followed up with orthopedic surgeon outpatient. Patient has a past medical history of diabetes mellitus, DVT, I disorder, osteoporosis, pneumonia and macular degeneration. Chest x-ray completed showing marked interstitial phase pulmonary edema presumably cardiogenic etiology. Lab work revealing elevated d-dimer 2.31. CT of the chest performed showing trace pericardial effusion, scattered reticular infiltrates in the right upper lobe and both lung bases consider viral or interstitial pneumonia. Pulmonary arterial tree is adequately opacified with contrast no large central emboli are visible there is under opacification of a small segmental branch in the left lower lobe laterally no discrete thrombus is visible. This is of questioned significance small segmental pulmonary embolism cannot be excluded. Aortic arch is mildly calcified but nondilated. Will consult pulmonary services. Venous Doppler completed no deep vein thrombosis identified. Troponins negative. BNP elevated at 5250. UA positive for urinary tract infection. At this time patient will be admitted cardiology pulmonary service is consulted. Bilateral lower extremities noted for cellulitis. Infectious disease service is consulted patient started on IV antibiotics. 2-D echo ordered. COVID-19 negative. Patient started on IV Lasix On 04/26/2023 patient was seen and examined on the telemetry floor she is alert and oriented 3 in no apparent distress, she is complaining of bilateral lower extremity pain, site of cellulitis and ulcers, she is also complaining of left shoulder pain and shortness of breath with any activity, otherwise she denies any complaints there is no fever or chills no headache or dizziness no chest pain no cough no nausea or vomiting no abdominal pain no diarrhea no blood in the stools no burning with urination no frequency or urgency and no hematuria. At this time awaiting further recommendation from cardiology. Patient is maintained on IV antibiotic for bilateral lower extremity cellulitis with ulcers, awaiting further input from infectious disease. On 04/27/2023 patient alert and oriented 3. Patient reports improvement with lower infection many pain. Patient remains on IV cefazolin. Tessalon pearls added for cough. Pulmonary cardiology and infectious disease service is consulted. Vital signs temp 98.3, heart rate 97, respiratory rate 18, blood pressure 119/63 with pulse ox of 91% on 2 L On 04/28/2023 patient was seen and examined on the telemetry floor she is alert and oriented 3 in no apparent distress yesterday she had worsening shortness of breath at night with significant drop in her O2 sat duration down to the 70s O2 supplements was increased to 15 L high flow, pulmonary and cardiology are fol lowing patient is improving gradually during the day today, repeat chest x-ray ordered will follow closely. On 04/29/2023 patient is alert and oriented 3. Sliding scale insulin added. 97.9, heart rate 76, respiratory rate 14, blood pressure 112/73 with pulse ox of 94% on 6 L. Patient remains on IV Kefzol and IV steroids On 04/30/2023 patient is alert and oriented 3. Patient reports improvement with shortness of breath and bilateral leg pain. Oxygen decreasing to 5 L. Per pulmonary services steroids have been DC'd. Patient remains on IV antibiotics. Pulmonary, cardiology and infectious disease services following. Current vital signs temp 97.9, heart rate 80, respiratory rate 18, blood pressure 115/73 with pulse ox 93% on 5 L On 05/01/2023 patient was seen and examined on the telemetry floor she is alert and oriented 3 in no apparent distress there is no fever or chills no headache or dizziness she is still having shortness of breath she is still requiring 4 L of oxygen there is no chest pain no cough no nausea or vomiting no abdominal pain no diarrhea and no urinary symptoms, she remains on IV cefazolin for bilateral lower extremity cellulitis with ulcers. On 05/02/2023 patient is alert and oriented 3. Current vital signs temp 98, heart rate 86, respiratory rate 22, blood pressure 128/76 with a pulse ox 92% on 5 L. By mouth Lasix increased to twice daily. Patient remains on IV antibiotics. Infectious disease pulmonary and cardiology services following On 05/03/2023 patient alert and oriented 3 currently sitting up in chair. Patient was started on Diamox for elevated CO2. Patient also started on Aldactone per cardiology services. Pulmonary cardiology service is currently following. Current vital signs temp 97.9, pulse rate 79, respiratory rate 18, blood pressure 122/84 with a pulse ox 90% on 5 L Objective - Vital Signs Vital signs: Vital Signs Temp 97.5 F L 05/03/23 01:16 Pulse 84 05/03/23 01:16 Resp 28 H 05/03/23 01:16 BP 138/77 05/03/23 01:16 Pulse Ox 91 L 05/03/23 01:16 FiO2 Intake & Output 05/02/23 05/03/23 05/03/23 18:59 06:59 18:59 Intake Total 1545 Output Total 1950 Balance -405 Weight 153 kg Intake: Oral 1545 Output: Urine 1950 Other: Voiding Method External Catheter Diaper External Catheter # Voids 1 - Exam In general patient is alert and oriented x 3 in no distress HEENT head normocephalic and atraumatic Neck is supple no JVD no goiter no lymphadenopathy no carotid bruit Chest examination is clear to auscultation no crackles no wheezing Cardiac exam reveals regular heart sounds S1 and S2 no gallops no murmurs Abdomen is soft nontender no organomegaly with normal bowel sounds Extremity exam reveals bilateral pretibial erythema with superficial ulcers and 2+ edema Neurological examination reveals no gross focal deficits - Labs CBC & Chem 7: 05/03/23 04:42 05/03/23 04:42 Labs: Abnormal Lab Results - Last 24 Hours (Table) 05/02/23 05/02/23 05/02/23 Range/Units 08:06 08:06 11:19 WBC (3.8-10.6) k/uL Hct (34.0-46.0) % MCHC 29.9 L (31.0-37.0) g/dL RDW (11.5-15.5) % Neutrophils # (1.3-7.7) k/uL Lymphocytes # 0.9 L (1.0-4.8) k/uL Chloride 92 L (98-107) mmol/L Carbon Dioxide 39 H (22-30) mmol/L BUN 28 H (7-17) mg/dL Glucose 137 H (74-99) mg/dL POC Glucose (mg/dL) 171 H (70-110) mg/dL Total Protein 5.8 L (6.3-8.2) g/dL Albumin 3.1 L (3.5-5.0) g/dL 05/02/23 05/02/23 05/03/23 Range/Units 16:22 20:05 04:42 WBC 11.1 H (3.8-10.6) k/uL Hct 46.1 H (34.0-46.0) % MCHC 30.0 L (31.0-37.0) g/dL RDW 15.6 H (11.5-15.5) % Neutrophils # 8.7 H (1.3-7.7) k/uL Lymphocytes # (1.0-4.8) k/uL Chloride (98-107) mmol/L Carbon Dioxide (22-30) mmol/L BUN (7-17) mg/dL Glucose (74-99) mg/dL POC Glucose (mg/dL) 286 H 241 H (70-110) mg/dL Total Protein (6.3-8.2) g/dL Albumin (3.5-5.0) g/dL 05/03/23 05/03/23 Range/Units 04:42 07:35 WBC (3.8-10.6) k/uL Hct (34.0-46.0) % MCHC (31.0-37.0) g/dL RDW (11.5-15.5) % Neutrophils # (1.3-7.7) k/uL Lymphocytes # (1.0-4.8) k/uL Chloride 92 L (98-107) mmol/L Carbon Dioxide 41 H* (22-30) mmol/L BUN 28 H (7-17) mg/dL Glucose 144 H (74-99) mg/dL POC Glucose (mg/dL) 146 H (70-110) mg/dL Total Protein 6.0 L (6.3-8.2) g/dL Albumin 3.2 L (3.5-5.0) g/dL Assessment and Plan Assessment: 1. Shortness of breath 2. CHF exacerbation. Noted elevated BNP. 2-D echo ordered patient started on IV Lasix 3. Elevated d-dimer. CTA performed negative venous Doppler 4. Possible pneumonia. Pulmonary service is consulted 5. Urinary tract infection urine culture ordered 6. Lower extremity cellulitis. Patient started on IV antibiotics infectious disease service is consulted 7. History of diabetes mellitus 8. History of DVT 9. History of pneumonia 10. History of macular degeneration 11. Elevated CO2 patient started Diamox DVT prophylaxis Lovenox. GI prophylaxis Protonix Cardiology, pulmonary and infectious disease service is consulted Patient started on IV antibiotic Maintained on by mouth Lasix
--- NOTE | 2023-05-03 12:03 | P.PN ---
Subjective Progress Note Date: 05/03/23 This is a 72-year-old female with a past medical history significant for diabetes and morbid obesity. 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 We have been asked to see the patient in consultation for new onset CHF. Patient examined at the bedside in the emergency room. Patient states that she present ed to the hospital due to shortness of breath with exertion and increased lower extremity edema. She also reports her hands were swollen and sore. The patient was diagnosed with pneumonia and was started on antibiotics. She was also found to be in acute congestive heart failure and was started on IV Lasix 40 mg every 12 hours. The patient denies a previous history of congestive heart failure. She states that she does have some chronic lower extremity edema at baseline and sees Dr. Hennessy on an outpatient basis regarding this. She states that he had prescribed her KUSH hose in the past. The patient denies a history of obstructive sleep apnea but states that she was supposed to have a sleep study performed in which she has not done yet. * EKG reveals sinus mechanism with no signs of acute ischemia * Chest xray marked interstitial phase pulmonary edema * Laboratory data: D-dimer 2.31. Troponin negative 3. ProBNP 5250 * Current home cardiac medications include aspirin 81 mg twice a day * Chest CTA: Negative for pulmonary embolism. Moderate to severe coronary calcifications. No evidence of RV dysfunction. Scattered reticular infiltrates in the right upper lobe and both lung bases. Consider bilateral interstitial pneumonia. No large central embolism is visible. A small segm ental pulmonary embolus and cannot be excluded. * Lower extremity Doppler: Negative for DVT * Echocardiogram with Doppler study revealed ejection fraction 50-55% with severe RV dilatation and severe pulmonary hypertension, mild to moderate MR and moderate to severe TR. 05/03/2023 She was seen and examined sitting up in a chair. She continues to be on oral Lasix as well as spironolactone. Diamox was added due to elevated CO2. Overall her main complaint is feeling quite tired. According to the she dozes off frequently while sitting in the chair. Continues to be treated for pneumonia as well as bilateral lower extremity cellulitis with ulcers. She is being followed by pulmonary with plans for outpatient sleep study. Continues to cough up yellow sputum. The patient and her continue to request follow- up with Dr. aCrrasquillo. Objective - Vital Signs Vital signs: Vital Signs Temp 97.9 F 05/03/23 07:35 Pulse 79 05/03/23 07:35 Resp 18 05/03/23 07:35 BP 122/84 05/03/23 07:35 Pulse Ox 90 L 05/03/23 07:35 FiO2 Intake & Output 05/02/23 05/03/23 05/03/23 18:59 06:59 18:59 Intake Total 1545 Output Total 1950 Balance -405 Weight 153 kg Intake: Oral 1545 Output: Urine 1950 Other: Voiding Method External Catheter Diaper External Catheter # Voids 1 - Exam GENERAL: Well-developed in no acute distress. HEENT: Head is normocephalic. Pupils are equal, round. Sclerae anicteric. Mucous membranes of the mouth are moist. Neck supple. No JVD or thyromegaly LUNGS: Respirations even and unlabored. Lungs reveal expiratory wheezing throughout. HEART: Regular rate and rhythm. S1 and S2 heard. ABDOMEN: Soft. Nondistended. Nontender. EXTREMITIES: Normal range of motion. No clubbing or cyanosis. Peripheral pulses intact. Bilateral lower extremity edema noted. NEUROLOGIC: Awake and alert. Oriented x 3. - Labs CBC & Chem 7: 05/03/23 04:42 05/03/23 04:42 Labs: Abnormal Lab Results - Last 24 Hours (Table) 05/02/23 05/02/23 05/02/23 Range/Units 11:19 16:22 20:05 WBC (3.8-10.6) k/uL Hct (34.0-46.0) % MCHC (31.0-37.0) g/dL RDW (11.5-15.5) % Neutrophils # (1.3-7.7) k/uL Chloride (98-107) mmol/L Carbon Dioxide (22-30) mmol/L BUN (7-17) mg/dL Glucose (74-99) mg/dL POC Glucose (mg/dL) 171 H 286 H 241 H (70-110) mg/dL Total Protein (6.3-8.2) g/dL Albumin (3.5-5.0) g/dL 05/03/23 05/03/23 05/03/23 Range/Units 04:42 04:42 07:35 WBC 11.1 H (3.8-10.6) k/uL Hct 46.1 H (34.0-46.0) % MCHC 30.0 L (31.0-37.0) g/dL RDW 15.6 H (11.5-15.5) % Neutrophils # 8.7 H (1.3-7.7) k/uL Chloride 92 L (98-107) mmol/L Carbon Dioxide 41 H* (22-30) mmol/L BUN 28 H (7-17) mg/dL Glucose 144 H (74-99) mg/dL POC Glucose (mg/dL) 146 H (70-110) mg/dL Total Protein 6.0 L (6.3-8.2) g/dL Albumin 3.2 L (3.5-5.0) g/dL Assessment and Plan Assessment: Bilateral pneumonia [id number] HFpEF exacerbation, currently euvolemic Moderate to severe coronary calcifications, per computed tomography scan Diabetes Morbid obesity: BMI 50.6 Cellulitis of the bilateral lower extremities Plan: From cardiology's perspective medications were reviewed and we will continue the same. Continue to monitor renal function, electrolytes and daily weights. Plan for follow-up with Dr. Carrasquillo as an outpatient upon discharge. PLASTER MOLDER note has been reviewed, I agree with a documented findings and plan of care. Patient was seen and examined.
[2023-05-03 12:20] LABS: Glucose,Whole Blood 164 mg/dL (70-110)
--- NOTE | 2023-05-03 15:50 | P.PN ---
Subjective Progress Note Date: 05/03/23 72-year-old female seen in the emergency department, room 15. She's here with her . She apparently presented to the emergency department, on April 24, with multiple complaints including leg swelling, shortness of breath, cough, and generally just not feeling well. She also has some tingling to her hands bilaterally, and apparently has been seen by one of the hand surgeons. The patient is laying flat in bed. She is on a couple liters of oxygen. She's not receiving any IV fluids. She tells me that she has cellulitis of the lower extremities. She is a rather large woman. She also tells me that her only major medical problem is diabetes mellitus. Although, she apparently has a his tory of DVT, osteoarthritis, and pneumonia. She also has a previous history of kidney stones, status post lithotripsy. Current labs include a white count 6.6, hemoglobin 12.9, hematocrit 42.6, and a platelet count of 101,000. D-dimer is 2.31. Venous blood gases showed CO2 49 and a pH is 7.36. Sodium 140, potassium 4.7, chlorides 105, CO2 25, BUN 22, creatinine 0.69. The N-terminal proBNP is elevated at 5250. Troponins were negative 2. Urine showed 2+ protein and moderate blood and large leukocyte esterase, 93 RBCs 74 WBCs, rare bacteria, and occasional mucus. Testing for coronavirus was negative. Chest x-ray showed changes consistent with pulmonary edema/fluid overload. CT angiogram was negative for pulmonary embolism. Doppler of the lower semis was negative for DVT. Progress note dated 04/26/2023. 72-year-old obese female seen yesterday in the emergency department. Today, she is seen in room 368. The patient's currently on 3 L of oxygen. She is receiving Lasix and her fluid overload, and Ancef, for her lower extremity edema. Her lower extremity edema is a bit better today. She does feel a bit better today, less short of breath. Current laboratory data includes a glucose of 181. Testing for harper virus was negative. Troponin was less than 0.012, 2. Progress note dated 04/27/2023. 73-year-old female initially seen in the emergency department, but is seen in room 368 today. She continues on oxygen at 3 L. No IV fluids. For her cough, we ordered some Tessalon Perles. In addition, she continues on Ancef for her bilateral lower extremity cellulitis. Also, she is receiving diuretics, for her pulmonary edema. Today's laboratory data includes a glucose of 137. Testing for harper virus was negative. Blood cultures are negative. On today's evaluation of 04/28/2023, I'm seeing the patient for a follow-up. She is on 10 L of oxygen by nasal cannula. She is in for increased lower extremity edema, hypoxic respiratory failure, lower extremity infection. The patient has some mild cardiomegaly on her CT angiogram. No evidence of any pulmonary embolism. Her echocardiogram showed LV function with ejection fraction of 50-55%. She has severe RV dilatation and severe pulmonary hypertension and she may have an underlying obstructive sleep apnea. No recent CBC, most recent electrolytes show a BUN of 34 with a creatinine 1.1 and sodium level is at 138. She is currently on oxygen at 10 L she is on IV cefazolin. She is also on oral Lasix 40 mg by mouth daily. She remains on bronchodilators with albuterol HFA, IV Solu-Medrol 20 mg every 8 hours and Lovenox 40 mg subcu portably prophylaxis. On 04/29/2023, the patient is sitting up in a recliner. Doing well. She is down to 6 L of oxygen nasal cannula. She is still on Lasix. She is in a negative fluid balance. Labs from today are still pending. No other significant events overnight. No angina. No palpitations. No chest pain. Remains on albuterol HFA, IV Solu-Medrol 20 mg every 8 hours then Lovenox 40 mg subcu for DVT prophylaxis. On 04/30/2023, the patient is being seen for a follow-up. Doing well. No new complaints. The patient has been weaned down to 5 L of oxygen by nasal cannula with a pulse ox of 95%. The patient is diuresing adequately and the patient is a negative fluid balance of at least 2 L over the past 24 hours. The patient is currently on Lasix 40 mg by mouth daily. The patient is still on IV cefazolin regarding lower extremity cellulitis. Edema still present in the legs bilaterally. Blood work from today shows a BUN of 44 with a creatinine of 0.7. Sodium level is at 138. The risks count of 9.3 with a hemoglobin 15.1 and a platelet count of 243. No chest pain. No interval worsening shortness of breath. On 05/01/2023, the patient has been weaned down to 5 L. Her current pulse ox is 93%. She is making excellent urine output. Overall fluid balance is -2 L over the past 24 hours. She remains on Lasix 40 mg by mouth and the dose was increased up to twice a day. She remains on IV cefazolin. Lower extremity cellulitis is also improving. Mentally she is awake and alert and communicating. She is trying to increase her mobility. She is working with physical therapy. Blood work shows a sodium level of 141, BUN is 34 with a creatinine of 0.6. LFTs are normal. The viscosity 0.8 with a hemoglobin 15.4 and a platelet count of 178. on today's evaluation of 05/02/2023, the patient is still on 5 L of O2 nasal cannula. She is producing excellent urine output. There is significant improvement in lower extremity edema and the wound over the right lower extremity so is essentially eating at this point in time. There is no active drainage. The wound is very healthy-looking. Edema lower extremity is also improving. Meanwhile, the patient remains on oral Lasix. Fluid balance is negative at least 2 L over the past 24 hours.White cell count of 8.2 with a hemoglobin of 13.4 and a platelet count of 181. BUN is at 28 with a creatinine of 0.6 and a sodium level is at 140. Potassium levels at 4.0. The patient r emains on IV cefazolin. The patient is on Lasix 40 mg by mouth twice a day. Rest of the medications remain unchanged. The patient and KVO. We will balance is -2.3 L over the past 24 hours. On 05/03/2023, no new complaints. The patient is sitting up on a chair. She is currently on room air oxygen. Oxygen saturation is improved. The patient was transferred to the [facility]. The fluid balance is negative at least 2.3 L. The labs are all stable, the viscosity 11.1, he was 13.8, serum bicarbonate is 41, BUN is 28 with a creatinine of 0.66 Objective - Vital Signs Vital signs: Vital Signs Temp 97.8 F 05/03/23 13:14 Pulse 88 05/03/23 13:14 Resp 16 05/03/23 13:14 BP 115/74 05/03/23 13:14 Pulse Ox 93 L 05/03/23 13:14 FiO2 Intake & Output 05/02/23 05/03/23 05/03/23 18:59 06:59 18:59 Intake Total 1545 Output Total 1950 Balance -405 Weight 153 kg Intake: Oral 1545 Output: Urine 1950 Other: Voiding Method External Catheter Diaper Diaper External Catheter External Catheter # Voids 1 - Exam No acute distress, oriented 3. Currently on 5 L of oxygen. Patient was checked on room air oxygen and the pulse ox was 93% HEENT examination is grossly unremarkable. Neck supple. Full range of motion. No adenopathy thyromegaly or neck vein distention. Cardiovascular examination reveals regular rhythm rate. S1-S2 normal. No S3 or S4. No discernible murmur noted. Heart sounds are distant. Lungs reveal scattered crackles the patient has diminished breath on lung base bilaterally. No significant wheezes. Abdomen obese, without masses or tenderness. Bowel sounds are noted. Extremities are intact. No cyanosis or clubbing. After significant bilateral lower extremity edema. Her legs have been wrapped with BOGDAN bandages. Skin reveals cellulitic changes in the lower extremities. Neurologic examination is brief but nonfocal. - Labs CBC & Chem 7: 05/03/23 04:42 05/03/23 04:42 Labs: Abnormal Lab Results - Last 24 Hours (Table) 05/02/23 05/02/23 05/03/23 Range/Units 16:22 20:05 04:42 WBC 11.1 H (3.8-10.6) k/uL Hct 46.1 H (34.0-46.0) % MCHC 30.0 L (31.0-37.0) g/dL RDW 15.6 H (11.5-15.5) % Neutrophils # 8.7 H (1.3-7.7) k/uL Chloride (98-107) mmol/L Carbon Dioxide (22-30) mmol/L BUN (7-17) mg/dL Glucose (74-99) mg/dL POC Glucose (mg/dL) 286 H 241 H (70-110) mg/dL Total Protein (6.3-8.2) g/dL Albumin (3.5-5.0) g/dL 05/03/23 05/03/23 05/03/23 Range/Units 04:42 07:35 12:18 WBC (3.8-10.6) k/uL Hct (34.0-46.0) % MCHC (31.0-37.0) g/dL RDW (11.5-15.5) % Neutrophils # (1.3-7.7) k/uL Chloride 92 L (98-107) mmol/L Carbon Dioxide 41 H* (22-30) mmol/L BUN 28 H (7-17) mg/dL Glucose 144 H (74-99) mg/dL POC Glucose (mg/dL) 146 H 164 H (70-110) mg/dL Total Protein 6.0 L (6.3-8.2) g/dL Albumin 3.2 L (3.5-5.0) g/dL Assessment and Plan Plan: Acute hypoxic respiratory failure, currently on 5 L of oxygen by nasal cannula. Shortness of breath is multifactorial. There is an obvious component of CHF with preserved LV function and severe right-sided heart failure with RV dysfunction and massive fluid overload, improving with diuretics. Patient is currently on oral Lasix. Negative fluid balance. The patient continues to produce adequate amount of urine output for now. Oxygen she continues to improve and the patient be able to wean off to room air possibly today or within next 24 hours. Right ventricular failure with severe pulmonary hypertension Shortness of breath, consistent with fluid overload, given the x-ray changes, lower extremity edema, and elevated BNP. Clinically improving Probable cellulitis, bilateral lower extremities. The patient remains on IV cefazolin, and inspection of the right lower extremity so wound shows significant improvement. No evidence of pulmonary embolism or DVT. Morbid obesity. History of diabetes mellitus. History of vitamin D deficiency. Prior history of DVT. History of osteoarthritis. History of pneumonia. History of kidney stones. Stress urinary incontinence. Plan May down FiO2 no new complaints and overall condition is stable. Shortness of breath is stable. Clinically stable and improving Continue diuretics, continue Lasix and changed to 40 mg twice a day Fluid balance is negative Monitor fluid balance Provide incentive spirometer Monitor renal function, stable We'll continue to follow. Obvious features of obstructive sleep apnea and this is to be further worked up on outpatient basis. Work with physical therapy Stable from the pulmonary standpoint
[2023-05-03 17:43] LABS: Glucose,Whole Blood 159 mg/dL (70-110)
[2023-05-03 21:05] LABS: Glucose,Whole Blood 241 mg/dL (70-110)
[2023-05-03] MEDS: OXYBUTYNIN 10 MG TAB.ER.24 PO SCH (22:31)
[2023-05-04] MEDS: ceFAZolin 3 GM in SODIUM CHLORIDE 0.9% 100 ML IVPB SCH ×4 (00:05→23:54)
[2023-05-04 07:30] LABS: Glucose,Whole Blood 142 mg/dL (70-110)
[2023-05-04] MEDS: INSULIN ASPART (NovoLOG) 100 UNIT/ML VIAL SQ SCH ×4 (08:20→21:01)
[2023-05-04] MEDS: ENOXAPARIN 40 MG/0.4 ML SYRINGE SQ SCH (10:05)
[2023-05-04] MEDS: PANTOPRAZOLE 40 MG TABLET PO SCH (10:06)
[2023-05-04] MEDS: FUROSEMIDE 40 MG TAB PO SCH ×2 (10:06→16:18)
[2023-05-04] MEDS: BENZONATATE 100 MG CAP PO SCH ×3 (10:06→21:00)
[2023-05-04] MEDS: CHOLECALCIFEROL 25 MCG (1000 IU) TABLET PO SCH ×2 (10:07→21:00)
[2023-05-04] MEDS: ASPIRIN 81 MG PO SCH ×2 (10:07→21:00)
[2023-05-04] MEDS: ATORVASTATIN 20 MG TAB PO SCH (10:07)
[2023-05-04] MEDS: SPIRONOLACTONE 25 MG TAB PO SCH (10:07)
[2023-05-04] MEDS: metFORMIN 500 MG TAB PO SCH ×2 (10:07→21:00)
[2023-05-04] MEDS: METOPROLOL SUCCINATE (ER) 25 MG TAB.ER.24H PO SCH ×2 (10:07→21:00)
[2023-05-04] MEDS: DAPAGLIFLOZIN PROPANEDIOL 10 MG TABLET PO SCH (10:33)
[2023-05-04] MEDS: acetaZOLAMIDE 250 MG TAB PO SCH ×2 (10:33→21:00)
--- NOTE | 2023-05-04 11:57 | P.PN ---
Subjective Progress Note Date: 05/04/23 Lorene Palma, is a 72-year-old female who presented with multiple complaints that have been occurring over the past few weeks. Patient reports she's had increased swelling to the lower extremity with weeping ulcers. Patient also reports she's had increased shortness of breath and cough. Patient also reports she's had tingling to hands bilaterally but has followed up with orthopedic surgeon outpatient. Patient has a past medical history of diabetes mellitus, DVT, I disorder, osteoporosis, pneumonia and macular degeneration. Chest x-ray completed showing marked interstitial phase pulmonary edema presumably cardiogenic etiology. Lab work revealing elevated d-dimer 2.31. CT of the chest performed showing trace pericardial effusion, scattered reticular infiltrates in the right upper lobe and both lung bases consider viral or interstitial pneumonia. Pulmonary arterial tree is adequately opacified with contrast no large central emboli are visible there is under opacification of a small segmental branch in the left lower lobe laterally no discrete thrombus is visible. This is of questioned significance small segmental pulmonary embolism cannot be excluded. Aortic arch is mildly calcified but nondilated. Will consult pulmonary services. Venous Doppler completed no deep vein thrombosis identified. Troponins negative. BNP elevated at 5250. UA positive for urinary tract infection. At this time patient will be admitted cardiology pulmonary service is consulted. Bilateral lower extremities noted for cellulitis. Infectious disease service is consulted patient started on IV antibiotics. 2-D echo ordered. COVID-19 negative. Patient started on IV Lasix On 04/26/2023 patient was seen and examined on the telemetry floor she is alert and oriented 3 in no apparent distress, she is complaining of bilateral lower extremity pain, site of cellulitis and ulcers, she is also complaining of left shoulder pain and shortness of breath with any activity, otherwise she denies any complaints there is no fever or chills no headache or dizziness no chest pain no cough no nausea or vomiting no abdominal pain no diarrhea no blood in the stools no burning with urination no frequency or urgency and no hematuria. At this time awaiting further recommendation from cardiology. Patient is maintained on IV antibiotic for bilateral lower extremity cellulitis with ulcers, awaiting further input from infectious disease. On 04/27/2023 patient alert and oriented 3. Patient reports improvement with lower infection many pain. Patient remains on IV cefazolin. Tessalon pearls added for cough. Pulmonary cardiology and infectious disease service is consulted. Vital signs temp 98.3, heart rate 97, respiratory rate 18, blood pressure 119/63 with pulse ox of 91% on 2 L On 04/28/2023 patient was seen and examined on the telemetry floor she is alert and oriented 3 in no apparent distress yesterday she had worsening shortness of breath at night with significant drop in her O2 sat duration down to the 70s O2 supplements was increased to 15 L high flow, pulmonary and cardiology are fol lowing patient is improving gradually during the day today, repeat chest x-ray ordered will follow closely. On 04/29/2023 patient is alert and oriented 3. Sliding scale insulin added. 97.9, heart rate 76, respiratory rate 14, blood pressure 112/73 with pulse ox of 94% on 6 L. Patient remains on IV Kefzol and IV steroids On 04/30/2023 patient is alert and oriented 3. Patient reports improvement with shortness of breath and bilateral leg pain. Oxygen decreasing to 5 L. Per pulmonary services steroids have been DC'd. Patient remains on IV antibiotics. Pulmonary, cardiology and infectious disease services following. Current vital signs temp 97.9, heart rate 80, respiratory rate 18, blood pressure 115/73 with pulse ox 93% on 5 L On 05/01/2023 patient was seen and examined on the telemetry floor she is alert and oriented 3 in no apparent distress there is no fever or chills no headache or dizziness she is still having shortness of breath she is still requiring 4 L of oxygen there is no chest pain no cough no nausea or vomiting no abdominal pain no diarrhea and no urinary symptoms, she remains on IV cefazolin for bilateral lower extremity cellulitis with ulcers. On 05/02/2023 patient is alert and oriented 3. Current vital signs temp 98, heart rate 86, respiratory rate 22, blood pressure 128/76 with a pulse ox 92% on 5 L. By mouth Lasix increased to twice daily. Patient remains on IV antibiotics. Infectious disease pulmonary and cardiology services following On 05/03/2023 patient alert and oriented 3 currently sitting up in chair. Patient was started on Diamox for elevated CO2. Patient also started on Aldactone per cardiology services. Pulmonary cardiology service is currently following. Current vital signs temp 97.9, pulse rate 79, respiratory rate 18, blood pressure 122/84 with a pulse ox 90% on 5 L On 05/04/2023 patient was seen and examined on the medical floor, she is alert and oriented 3 in no apparent distress, she is still complaining of shortness of breath with any activity, she is also complaining of bilateral lower extremity edema erythema and tenderness, there is a large ulcer on the right pretibial area. Patient remains on oxygen supplements at 5 L/m, she remains on Lasix and Aldactone and Diamox vital exam reveals a temperature of 98.3 pulse 72 respiration 18 blood pressure 123/71 pulse ox 93% on 5 L nasal cannula, labs to day are still pending Objective - Vital Signs Vital signs: Vital Signs Temp 98.3 F 05/04/23 07:29 Pulse 72 05/04/23 07:29 Resp 18 05/04/23 07:29 BP 123/71 05/04/23 07:29 Pulse Ox 96 05/04/23 08:12 FiO2 Intake & Output 05/03/23 05/04/23 05/04/23 18:59 06:59 18:59 Intake Total 1600 Output Total 800 Balance 1600 -800 Weight 140.2 kg Intake: Intake, IV Titration 200 Amount ceFAZolin 3 gm In Sodium 200 Chloride 0.9% 100 ml @ 200 mls/hr IVPB Q8HR COUNTS INCLUDE 234 BEDS AT THE [facility] Rx#:[id number] Oral 1400 Output: Urine 800 Other: Voiding Method Diaper Diaper External Catheter External Catheter - Exam In general patient is alert and oriented x 3 in no distress HEENT head normocephalic and atraumatic Neck is supple no JVD no goiter no lymphadenopathy no carotid bruit Chest examination is clear to auscultation no crackles no wheezing Cardiac exam reveals regular heart sounds S1 and S2 no gallops no murmurs Abdomen is soft nontender no organomegaly with normal bowel sounds Extremity exam reveals bilateral pretibial erythema with superficial ulcers and 2+ edema Neurological examination reveals no gross focal deficits - Labs CBC & Chem 7: 05/03/23 04:42 05/03/23 04:42 Labs: Abnormal Lab Results - Last 24 Hours (Table) 05/03/23 05/03/23 05/03/23 Range/Units 12:18 17:41 20:55 POC Glucose (mg/dL) 164 H 159 H 241 H (70-110) mg/dL 05/04/23 Range/Units 07:28 POC Glucose (mg/dL) 142 H (70-110) mg/dL Assessment and Plan Assessment: 1. Shortness of breath 2. CHF exacerbation. Noted elevated BNP. 2-D echo ordered patient started on IV Lasix 3. Elevated d-dimer. CTA performed negative venous Doppler 4. Possible pneumonia. Pulmonary service is consulted 5. Urinary tract infection urine culture ordered 6. Lower extremity cellulitis. Patient started on IV antibiotics infectious disease service is consulted 7. History of diabetes mellitus 8. History of DVT 9. History of pneumonia 10. History of macular degeneration 11. Elevated CO2 patient started Diamox DVT prophylaxis Lovenox. GI prophylaxis Protonix Cardiology, pulmonary and infectious disease service is consulted Patient started on IV antibiotic Maintained on by mouth Lasix
[2023-05-04 12:06] LABS: Glucose,Whole Blood 197 mg/dL (70-110)
[2023-05-04] MEDS: IPRATROPIUM-ALBUTEROL 3 ML NEB INHALATION SCH ×3 (12:10→20:18)
--- NOTE | 2023-05-04 12:42 | P.PN ---
Subjective Progress Note Date: 05/04/23 72-year-old female seen in the emergency department, room 15. She's here with her . She apparently presented to the emergency department, on April 24, with multiple complaints including leg swelling, shortness of breath, cough, and generally just not feeling well. She also has some tingling to her hands bilaterally, and apparently has been seen by one of the hand surgeons. The patient is laying flat in bed. She is on a couple liters of oxygen. She's not receiving any IV fluids. She tells me that she has cellulitis of the lower extremities. She is a rather large woman. She also tells me that her only major medical problem is diabetes mellitus. Although, she apparently has a his tory of DVT, osteoarthritis, and pneumonia. She also has a previous history of kidney stones, status post lithotripsy. Current labs include a white count 6.6, hemoglobin 12.9, hematocrit 42.6, and a platelet count of 101,000. D-dimer is 2.31. Venous blood gases showed CO2 49 and a pH is 7.36. Sodium 140, potassium 4.7, chlorides 105, CO2 25, BUN 22, creatinine 0.69. The N-terminal proBNP is elevated at 5250. Troponins were negative 2. Urine showed 2+ protein and moderate blood and large leukocyte esterase, 93 RBCs 74 WBCs, rare bacteria, and occasional mucus. Testing for coronavirus was negative. Chest x-ray showed changes consistent with pulmonary edema/fluid overload. CT angiogram was negative for pulmonary embolism. Doppler of the lower semis was negative for DVT. Progress note dated 04/26/2023. 72-year-old obese female seen yesterday in the emergency department. Today, she is seen in room 368. The patient's currently on 3 L of oxygen. She is receiving Lasix and her fluid overload, and Ancef, for her lower extremity edema. Her lower extremity edema is a bit better today. She does feel a bit better today, less short of breath. Current laboratory data includes a glucose of 181. Testing for harper virus was negative. Troponin was less than 0.012, 2. Progress note dated 04/27/2023. 73-year-old female initially seen in the emergency department, but is seen in room 368 today. She continues on oxygen at 3 L. No IV fluids. For her cough, we ordered some Tessalon Perles. In addition, she continues on Ancef for her bilateral lower extremity cellulitis. Also, she is receiving diuretics, for her pulmonary edema. Today's laboratory data includes a glucose of 137. Testing for harper virus was negative. Blood cultures are negative. On today's evaluation of 04/28/2023, I'm seeing the patient for a follow-up. She is on 10 L of oxygen by nasal cannula. She is in for increased lower extremity edema, hypoxic respiratory failure, lower extremity infection. The patient has some mild cardiomegaly on her CT angiogram. No evidence of any pulmonary embolism. Her echocardiogram showed LV function with ejection fraction of 50-55%. She has severe RV dilatation and severe pulmonary hypertension and she may have an underlying obstructive sleep apnea. No recent CBC, most recent electrolytes show a BUN of 34 with a creatinine 1.1 and sodium level is at 138. She is currently on oxygen at 10 L she is on IV cefazolin. She is also on oral Lasix 40 mg by mouth daily. She remains on bronchodilators with albuterol HFA, IV Solu-Medrol 20 mg every 8 hours and Lovenox 40 mg subcu portably prophylaxis. On 04/29/2023, the patient is sitting up in a recliner. Doing well. She is down to 6 L of oxygen nasal cannula. She is still on Lasix. She is in a negative fluid balance. Labs from today are still pending. No other significant events overnight. No angina. No palpitations. No chest pain. Remains on albuterol HFA, IV Solu-Medrol 20 mg every 8 hours then Lovenox 40 mg subcu for DVT prophylaxis. On 04/30/2023, the patient is being seen for a follow-up. Doing well. No new complaints. The patient has been weaned down to 5 L of oxygen by nasal cannula with a pulse ox of 95%. The patient is diuresing adequately and the patient is a negative fluid balance of at least 2 L over the past 24 hours. The patient is currently on Lasix 40 mg by mouth daily. The patient is still on IV cefazolin regarding lower extremity cellulitis. Edema still present in the legs bilaterally. Blood work from today shows a BUN of 44 with a creatinine of 0.7. Sodium level is at 138. The risks count of 9.3 with a hemoglobin 15.1 and a platelet count of 243. No chest pain. No interval worsening shortness of breath. On 05/01/2023, the patient has been weaned down to 5 L. Her current pulse ox is 93%. She is making excellent urine output. Overall fluid balance is -2 L over the past 24 hours. She remains on Lasix 40 mg by mouth and the dose was increased up to twice a day. She remains on IV cefazolin. Lower extremity cellulitis is also improving. Mentally she is awake and alert and communicating. She is trying to increase her mobility. She is working with physical therapy. Blood work shows a sodium level of 141, BUN is 34 with a creatinine of 0.6. LFTs are normal. The viscosity 0.8 with a hemoglobin 15.4 and a platelet count of 178. on today's evaluation of 05/02/2023, the patient is still on 5 L of O2 nasal cannula. She is producing excellent urine output. There is significant improvement in lower extremity edema and the wound over the right lower extremity so is essentially eating at this point in time. There is no active drainage. The wound is very healthy-looking. Edema lower extremity is also improving. Meanwhile, the patient remains on oral Lasix. Fluid balance is negative at least 2 L over the past 24 hours.White cell count of 8.2 with a hemoglobin of 13.4 and a platelet count of 181. BUN is at 28 with a creatinine of 0.6 and a sodium level is at 140. Potassium levels at 4.0. The patient r emains on IV cefazolin. The patient is on Lasix 40 mg by mouth twice a day. Rest of the medications remain unchanged. The patient and KVO. We will balance is -2.3 L over the past 24 hours. On 05/03/2023, no new complaints. The patient is sitting up on a chair. She is currently on room air oxygen. Oxygen saturation is improved. The patient was transferred to the [facility]. The fluid balance is negative at least 2.3 L. The labs are all stable, the viscosity 11.1, he was 13.8, serum bicarbonate is 41, BUN is 28 with a creatinine of 0.66 05/04/2023, condition is stable. Still on 5 L of O2 nasal cannula. She patient continues to the stable and saturations improved. We should be able to wean down FiO2. No new complaints otherwise for now. Objective - Vital Signs Vital signs: Vital Signs Temp 98.3 F 05/04/23 07:29 Pulse 72 05/04/23 07:29 Resp 18 05/04/23 07:29 BP 123/71 05/04/23 07:29 Pulse Ox 96 05/04/23 08:12 FiO2 Intake & Output 05/03/23 05/04/23 05/04/23 18:59 06:59 18:59 Intake Total 1600 Output Total 800 Balance 1600 -800 Weight 140.2 kg Intake: Intake, IV Titration 200 Amount ceFAZolin 3 gm In Sodium 200 Chloride 0.9% 100 ml @ 200 mls/hr IVPB Q8HR [facility] Rx#:[id number] Oral 1400 Output: Urine 800 Other: Voiding Method Diaper Diaper External Catheter External Catheter - Exam No acute distress, oriented 3. Currently on 5 L of oxygen. Patient was checked on room air oxygen and the pulse ox was 93% HEENT examination is grossly unremarkable. Neck supple. Full range of motion. No adenopathy thyromegaly or neck vein dist ention. Cardiovascular examination reveals regular rhythm rate. S1-S2 normal. No S3 or S4. No discernible murmur noted. Heart sounds are distant. Lungs reveal scattered crackles the patient has diminished breath on lung base bilaterally. No significant wheezes. Abdomen obese, without masses or tenderness. Bowel sounds are noted. Extremities are intact. No cyanosis or clubbing. After significant bilateral lower extremity edema. Her legs have been wrapped with BOGDAN bandages. Skin reveals cellulitic changes in the lower extremities. Neurologic examination is brief but nonfocal. - Labs CBC & Chem 7: 05/03/23 04:42 05/03/23 04:42 Labs: Abnormal Lab Results - Last 24 Hours (Table) 05/03/23 05/03/23 05/03/23 Range/Units 12:18 17:41 20:55 POC Glucose (mg/dL) 164 H 159 H 241 H (70-110) mg/dL 05/04/23 Range/Units 07:28 POC Glucose (mg/dL) 142 H (70-110) mg/dL Assessment and Plan Plan: Acute hypoxic respiratory failure, currently on 5 L of oxygen by nasal cannula. Shortness of breath is multifactorial. There is an obvious component of CHF with preserved LV function and severe right-sided heart failure with RV dysfu nction and massive fluid overload, improving with diuretics. Patient is currently on oral Lasix. Negative fluid balance. The patient continues to produce adequate amount of urine output for now. Patient is stable currently on 5 L Right ventricular failure with severe pulmonary hypertension Shortness of breath, consistent with fluid overload, given the x-ray changes, lower extremity edema, and elevated BNP. Clinically improving Probable cellulitis, bilateral lower extremities. The patient remains on IV cefazolin, and inspection of the right lower extremity so wound shows significant improvement. No evidence of pulmonary embolism or DVT. Morbid obesity. History of diabetes mellitus. History of vitamin D deficiency. Prior history of DVT. History of osteoarthritis. History of pneumonia. History of kidney stones. Stress urinary incontinence. Plan May down FiO2 no new complaints and overall condition is stable. Shortness of breath is stable. Clinically stable and improving Continue diuretics, continue Lasix and changed to 40 mg twice a day Fluid balance is negative Monitor fluid balance Provide incentive spirometer Monitor renal function, stable We'll continue to follow. Obvious features of obstructive sleep apnea and this is to be further worked up on outpatient basis. Work with physical therapy Stable from the pulmonary standpoint
--- NOTE | 2023-05-04 14:17 | P.PN ---
Subjective Progress Note Date: 05/04/23 This is a 72-year-old female with a past medical history significant for diabetes and morbid obesity. 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 We have been asked to see the patient in consultation for new onset CHF. Patient examined at the bedside in the emergency room. Patient states that she present ed to the hospital due to shortness of breath with exertion and increased lower extremity edema. She also reports her hands were swollen and sore. The patient was diagnosed with pneumonia and was started on antibiotics. She was also found to be in acute congestive heart failure and was started on IV Lasix 40 mg every 12 hours. The patient denies a previous history of congestive heart failure. She states that she does have some chronic lower extremity edema at baseline and sees Dr. Hennessy on an outpatient basis regarding this. She states that he had prescribed her KUSH hose in the past. The patient denies a history of obstructive sleep apnea but states that she was supposed to have a sleep study performed in which she has not done yet. * EKG reveals sinus mechanism with no signs of acute ischemia * Chest xray marked interstitial phase pulmonary edema * Laboratory data: D-dimer 2.31. Troponin negative 3. ProBNP 5250 * Current home cardiac medications include aspirin 81 mg twice a day * Chest CTA: Negative for pulmonary embolism. Moderate to severe coronary calcifications. No evidence of RV dysfunction. Scattered reticular infiltrates in the right upper lobe and both lung bases. Consider bilateral interstitial pneumonia. No large central embolism is visible. A small segm ental pulmonary embolus and cannot be excluded. * Lower extremity Doppler: Negative for DVT * Echocardiogram with Doppler study revealed ejection fraction 50-55% with severe RV dilatation and severe pulmonary hypertension, mild to moderate MR and moderate to severe TR. 05/03/2023 She was seen and examined sitting up in a chair. She continues to be on oral Lasix as well as spironolactone. Diamox was added due to elevated CO2. Overall her main complaint is feeling quite tired. According to the she dozes off frequently while sitting in the chair. Continues to be treated for pneumonia as well as bilateral lower extremity cellulitis with ulcers. She is being followed by pulmonary with plans for outpatient sleep study. Continues to cough up yellow sputum. The patient and her continue to request follow- up with Dr. Carrasquillo. 05/04/2023 Patient was seen and examined resting comfortably in bed. She continues on oral Lasix and spironolactone. She has more awake today. She feels her breathing is stable, continues to cough up yellow sputum. Objective - Vital Signs Vital signs: Vital Signs Temp 98 F 05/04/23 12:08 Pulse 75 05/04/23 12:22 Resp 18 05/04/23 12:08 BP 117/74 05/04/23 12:08 Pulse Ox 92 L 05/04/23 12:08 FiO2 Intake & Output 05/03/23 05/04/23 05/04/23 18:59 06:59 18:59 Intake Total 1600 Output Total 800 1000 Balance 1600 -800 -1000 Weight 140.2 kg 127.9 kg Intake: Intake, IV Titration 200 Amount ceFAZolin 3 gm In Sodium 200 Chloride 0.9% 100 ml @ 200 mls/hr IVPB Q8HR [facility] Rx#:[id number] Oral 1400 Output: Urine 800 1000 Other: Voiding Method Diaper Diaper Diaper External Catheter External Catheter External Catheter - Exam GENERAL: Well-developed in no acute distress. HEENT: Head is normocephalic. Pupils are equal, round. Sclerae anicteric. Mucous membranes of the mouth are moist. Neck supple. No JVD or thyromegaly LUNGS: Respirations even and unlabored. Lungs reveal improved air entry throughout. HEART: Regular rate and rhythm. S1 and S2 heard. ABDOMEN: Soft. Nondistended. Nontender. EXTREMITIES: Normal range of motion. No clubbing or cyanosis. Peripheral pulses intact. Bilateral lower extremity edema noted. NEUROLOGIC: Awake and alert. Oriented x 3. - Labs CBC & Chem 7: 05/03/23 04:42 05/03/23 04:42 Labs: Abnormal Lab Results - Last 24 Hours (Table) 05/03/23 05/03/23 05/04/23 Range/Units 17:41 20:55 07:28 POC Glucose (mg/dL) 159 H 241 H 142 H (70-110) mg/dL 05/04/23 Range/Units 12:05 POC Glucose (mg/dL) 197 H (70-110) mg/dL Assessment and Plan Assessment: Bilateral pneumonia [id number] HFpEF exacerbation, currently euvolemic Moderate to severe coronary calcifications, per computed tomography scan Diabetes Morbid obesity: BMI 50.6 Cellulitis of the bilateral lower extremities Plan: From cardiology's perspective medications were reviewed and we will continue the same. Continue to monitor renal function, electrolytes and daily weights. Patient would benefit from incentive spirometry. Plan for follow-up with Dr. Carrasquillo as an outpatient upon discharge. DIRECT CASTING OPERATOR note has been reviewed, I agree with a documented findings and plan of care. Patient was seen and examined.
[2023-05-04 17:16] LABS: Glucose,Whole Blood 234 mg/dL (70-110)
[2023-05-04 20:46] LABS: Glucose,Whole Blood 228 mg/dL (70-110)
[2023-05-04] MEDS: OXYBUTYNIN 10 MG TAB.ER.24 PO SCH (21:00)
[2023-05-05 07:28] LABS: Glucose,Whole Blood 182 mg/dL (70-110)
[2023-05-05 07:46] LABS: ALT 7 U/L (4-34); AST 16 U/L (14-36); African American GFR (CKD) 82 (>60 ml/min/1.73 sqM); Albumin 3.3 g/dL (3.5-5.0); Albumin/Globulin Ratio 1.1; Alkaline Phosphatase 89 U/L (38-126); Anion Gap 14 mmol/L; Blood Urea Nitrogen 29 mg/dL (7-17); Calcium 9.1 mg/dL (8.4-10.2); Carbon Dioxide 25 mmol/L (22-30); Chloride 99 mmol/L (98-107); Glucose 173 mg/dL (74-99); Non-African American GFR(CKD) 71 (>60 ml/min/1.73 sqM); Potassium 3.7 mmol/L (3.5-5.1); Sodium 138 mmol/L (137-145); Total Bilirubin 0.9 mg/dL (0.2-1.3); Total Protein 6.3 g/dL (6.3-8.2)
[2023-05-05] MEDS: IPRATROPIUM-ALBUTEROL 3 ML NEB INHALATION SCH ×4 (08:26→18:33)
[2023-05-05] MEDS: ceFAZolin 3 GM in SODIUM CHLORIDE 0.9% 100 ML IVPB SCH ×2 (08:56→16:26)
[2023-05-05] MEDS: BENZONATATE 100 MG CAP PO SCH ×3 (08:56→21:57)
[2023-05-05] MEDS: ENOXAPARIN 40 MG/0.4 ML SYRINGE SQ SCH (08:56)
[2023-05-05] MEDS: SPIRONOLACTONE 25 MG TAB PO SCH (08:57)
[2023-05-05] MEDS: acetaZOLAMIDE 250 MG TAB PO SCH ×2 (08:57→20:17)
[2023-05-05] MEDS: metFORMIN 500 MG TAB PO SCH ×2 (08:57→20:17)
[2023-05-05] MEDS: PANTOPRAZOLE 40 MG TABLET PO SCH (08:57)
[2023-05-05] MEDS: ASPIRIN 81 MG PO SCH ×2 (08:57→20:17)
[2023-05-05] MEDS: CHOLECALCIFEROL 25 MCG (1000 IU) TABLET PO SCH ×2 (08:57→20:17)
[2023-05-05] MEDS: METOPROLOL SUCCINATE (ER) 25 MG TAB.ER.24H PO SCH ×2 (08:57→20:17)
[2023-05-05] MEDS: ATORVASTATIN 20 MG TAB PO SCH (08:57)
[2023-05-05] MEDS: FUROSEMIDE 40 MG TAB PO SCH ×2 (08:58→16:28)
[2023-05-05] MEDS: DAPAGLIFLOZIN PROPANEDIOL 10 MG TABLET PO SCH (08:58)
[2023-05-05 11:00] LABS: Basophils # (A) 0.05 X 10*3/uL (0.00-0.10); Basophils % (A) 0.4 %; Eosinophils # (A) 0.53 X 10*3/uL (0.04-0.35); Eosinophils % (A) 4.3 %; HGB 13.5 g/dL (12.0-15.0); Lymphocytes # (A) 1.03 X 10*3/uL (0.90-5.00); Lymphocytes % (A) 8.4 %; MCHC 29.3 g/dL (32.0-37.0); MCV 98.7 FL (80.0-97.0); Mean Platelet Volume 12.4 FL (9.5-12.2); Monocytes # (A) 0.77 X 10*3/uL (0.20-1.00); Monocytes % (A) 6.3 %; NRBC Per 100 WBC 0 X 10*3/uL (0.00-0.01); Neutrophils % (A) 79.9 %; Platelet Count 232 X 10*3/uL (140-440); RBC 4.66 X 10*6/uL (4.10-5.20); RDW 15.3 % (11.5-14.5); WBC 12.27 X 10*3/uL (4.50-10.00)
[2023-05-05 11:41] LABS: Glucose,Whole Blood 215 mg/dL (70-110)
[2023-05-05] MEDS: INSULIN ASPART (NovoLOG) 100 UNIT/ML VIAL SQ SCH ×4 (11:45→20:26)
--- NOTE | 2023-05-05 13:14 | P.PN ---
Subjective Progress Note Date: 05/05/23 72-year-old female seen in the emergency department, room 15. She's here with her . She apparently presented to the emergency department, on April 24, with multiple complaints including leg swelling, shortness of breath, cough, and generally just not feeling well. She also has some tingling to her hands bilaterally, and apparently has been seen by one of the hand surgeons. The patient is laying flat in bed. She is on a couple liters of oxygen. She's not receiving any IV fluids. She tells me that she has cellulitis of the lower extremities. She is a rather large woman. She also tells me that her only major medical problem is diabetes mellitus. Although, she apparently has a hist ory of DVT, osteoarthritis, and pneumonia. She also has a previous history of kidney stones, status post lithotripsy. Current labs include a white count 6.6, hemoglobin 12.9, hematocrit 42.6, and a platelet count of 101,000. D-dimer is 2.31. Venous blood gases showed CO2 49 and a pH is 7.36. Sodium 140, potassium 4.7, chlorides 105, CO2 25, BUN 22, creatinine 0.69. The N-terminal proBNP is e levated at 5250. Troponins were negative 2. Urine showed 2+ protein and moderate blood and large leukocyte esterase, 93 RBCs 74 WBCs, rare bacteria, and occasional mucus. Testing for coronavirus was negative. Chest x-ray showed changes consistent with pulmonary edema/fluid overload. CT angiogram was negative for pulmonary embolism. Doppler of the lower semis was negative for DVT. Progress note dated 04/26/2023. 72-year-old obese female seen yesterday in the emergency department. Today, she is seen in room 368. The patient's currently on 3 L of oxygen. She is receiving Lasix and her fluid overload, and Ancef, for her lower extremity edema. Her lower extremity edema is a bit better today. She does feel a bit better today, less short of breath. Current laboratory data includes a glucose of 181. Testing for harper virus was negative. Troponin was less than 0.012, 2. Progress note dated 04/27/2023. 73-year-old female initially seen in the emergency department, but is seen in room 368 today. She continues on oxygen at 3 L. No IV fluids. For her cough, we ordered some Tessalon Perles. In addition, she continues on Ancef for her bilateral lower extremity cellulitis. Also, she is receiving diuretics, for her pulmonary edema. Today's laboratory data includes a glucose of 137. Testing for harper virus was negative. Blood cultures are negative. On today's evaluation of 04/28/2023, I'm seeing the patient for a follow-up. She is on 10 L of oxygen by nasal cannula. She is in for increased lower extremity edema, hypoxic respiratory failure, lower extremity infection. The patient has some mild cardiomegaly on her CT angiogram. No evidence of any pulmonary embolism. Her echocardiogram showed LV function with ejection fraction of 50-55%. She has severe RV dilatation and severe pulmonary hypertension and she may have an underlying obstructive sleep apnea. No recent CBC, most recent electrolytes show a BUN of 34 with a creatinine 1.1 and sodium level is at 138. She is currently on oxygen at 10 L she is on IV cefazolin. She is also on oral Lasix 40 mg by mouth daily. She remains on bronchodilators with albuterol HFA, IV Solu-Medrol 20 mg every 8 hours and Lovenox 40 mg subcu portably prophylaxis. On 04/29/2023, the patient is sitting up in a recliner. Doing well. She is down to 6 L of oxygen nasal cannula. She is still on Lasix. She is in a negative fluid balance. Labs from today are still pending. No other significant events overnight. No angina. No palpitations. No chest pain. Remains on albuterol HFA, IV Solu-Medrol 20 mg every 8 hours then Lovenox 40 mg subcu for DVT prophylaxis. On 04/30/2023, the patient is being seen for a follow-up. Doing well. No new complaints. The patient has been weaned down to 5 L of oxygen by nasal cannula with a pulse ox of 95%. The patient is diuresing adequately and the patient is a negative fluid balance of at least 2 L over the past 24 hours. The patient is currently on Lasix 40 mg by mouth daily. The patient is still on IV cefazolin regarding lower extremity cellulitis. Edema still present in the legs bilaterally. Blood work from today shows a BUN of 44 with a creatinine of 0.7. Sodium level is at 138. The risks count of 9.3 with a hemoglobin 15.1 and a platelet count of 243. No chest pain. No interval worsening shortness of breath. On 05/01/2023, the patient has been weaned down to 5 L. Her current pulse ox is 93%. She is making excellent urine output. Overall fluid balance is -2 L over the past 24 hours. She remains on Lasix 40 mg by mouth and the dose was increased up to twice a day. She remains on IV cefazolin. Lower extremity cellulitis is also improving. Mentally she is awake and alert and communicating. She is trying to increase her mobility. She is working with physical therapy. Blood work shows a sodium level of 141, BUN is 34 with a creatinine of 0.6. LFTs are normal. The viscosity 0.8 with a hemoglobin 15.4 and a platelet count of 178. on today's evaluation of 05/02/2023, the patient is still on 5 L of O2 nasal cannula. She is producing excellent urine output. There is significant improvement in lower extremity edema and the wound over the right lower extremity so is essentially eating at this point in time. There is no active drainage. The wound is very healthy-looking. Edema lower extremity is also improving. Meanwhile, the patient remains on oral Lasix. Fluid balance is negative at least 2 L over the past 24 hours.White cell count of 8.2 with a hemoglobin of 13.4 and a platelet count of 181. BUN is at 28 with a creatinine of 0.6 and a sodium level is at 140. Potassium levels at 4.0. The patient re atif on IV cefazolin. The patient is on Lasix 40 mg by mouth twice a day. Rest of the medications remain unchanged. The patient and KVO. We will balance is -2.3 L over the past 24 hours. On 05/03/2023, no new complaints. The patient is sitting up on a chair. She is currently on room air oxygen. Oxygen saturation is improved. The patient was transferred to the [facility]. The fluid balance is negative at least 2.3 L. The labs are all stable, the viscosity 11.1, he was 13.8, serum bicarbonate is 41, BUN is 28 with a creatinine of 0.66 05/04/2023, condition is stable. Still on 5 L of O2 nasal cannula. She patient continues to the stable and saturations improved. We should be able to wean down FiO2. No new complaints otherwise for now. The patient is seen today 05/05/2023 in follow-up on the regular medical floor. She is currently resting in bed. Awake and alert in no acute distress. She denies any worsening shortness of breath, cough or congestion. He is maintainin g O2 saturation in the 90s on 3 L/m per nasal cannula. She's afebrile. Hemodynamically stable. Blood cultures revealed no growth. White count 12.2. Hemoglobin 13.5. Platelets 232. Sodium 138. Potassium 3.7. Bicarb 25. BUN 29. Creatinine 0.83. Glucose 173. She is continued on DuoNeb inhalations. Remains on antibiotics in the form of cefazolin. Continued on oral diuretics. Currently in a negative balance. Objective - Vital Signs Vital signs: Vital Signs Temp 98.4 F 05/05/23 12:35 Pulse 85 05/05/23 12:35 Resp 18 05/05/23 12:35 BP 112/76 05/05/23 12:35 Pulse Ox 90 L 05/05/23 12:35 FiO2 Intake & Output 05/04/23 05/05/23 05/05/23 18:59 06:59 18:59 Output Total 1650 1300 675 Balance -1650 -1300 -675 Weight 127.9 kg 131.5 kg Output: Urine 1650 1300 675 Other: Voiding Method Diaper Diaper External Catheter Incontinent External Catheter - Exam GENERAL EXAM: Alert, isn't, morbidly obese 72-year-old female patient, 3 L nasal cannula, comfortable in no apparent distress. HEAD: Normocephalic. EYES: Normal reaction of pupils, equal size. NOSE: Clear with pink turbinates. THROAT: No erythema or exudates. NECK: No masses, no JVD. CHEST: No chest wall deformity. LUNGS: Equal air entry with few scattered rhonchi. CVS: S1 and S2 normal with no audible murmur, regular rhythm. ABDOMEN: Obese, normal bowel sounds, no guarding or rigidity. SPINE: No scoliosis or deformity SKIN: His of chronic venous stasis of the bilateral lower extremities with cellulitis. CENTRAL NERVOUS SYSTEM: No focal deficits, tone is normal in all 4 extremities. EXTREMITIES: Cellulitis of the bilateral lower extremities, Matthias wraps in place. No clubbing, no cyanosis. Peripheral pulses are intact. - Labs CBC & Chem 7: 05/05/23 06:23 05/05/23 06:23 Labs: Abnormal Lab Results - Last 24 Hours (Table) 05/04/23 05/04/23 05/05/23 Range/Units 17:14 20:44 06:23 WBC (4.50-10.00) X 10*3/uL MCV (80.0-97.0) FL MCHC (32.0-37.0) g/dL RDW (11.5-14.5) % MPV (9.5-12.2) FL Immature Gran # (0.00-0.04) X 10*3/uL Neutrophils # (1.80-7.70) X 10*3/uL Eosinophils # (0.04-0.35) X 10*3/uL BUN 29 H (7-17) mg/dL Glucose 173 H (74-99) mg/dL POC Glucose (mg/dL) 234 H 228 H (70-110) mg/dL Albumin 3.3 L (3.5-5.0) g/dL 05/05/23 05/05/23 05/05/23 Range/Units 06:23 07:27 11:39 WBC 12.27 H (4.50-10.00) X 10*3/uL MCV 98.7 H (80.0-97.0) FL MCHC 29.3 L (32.0-37.0) g/dL RDW 15.3 H (11.5-14.5) % MPV 12.4 H (9.5-12.2) FL Immature Gran # 0.09 H (0.00-0.04) X 10*3/uL Neutrophils # 9.80 H (1.80-7.70) X 10*3/uL Eosinophils # 0.53 H (0.04-0.35) X 10*3/uL BUN (7-17) mg/dL Glucose (74-99) mg/dL POC Glucose (mg/dL) 182 H 215 H (70-110) mg/dL Albumin (3.5-5.0) g/dL Assessment and Plan Assessment: Acute hypoxic respiratory failure, currently on 3 L of oxygen by nasal cannula. Shortness of breath is multifactorial. There is an obvious component of CHF with preserved LV function and severe right-sided heart failure with RV dysfunction and massive fluid overload, improving with diuretics. Patient is currently on oral Lasix. Negative fluid balance. The patient continues to produce adequate amount of urine. Right ventricular failure with severe pulmonary hypertension. Shortness of breath, consistent with fluid overload, given the x-ray changes, lower extremity edema, and elevated BNP. Clinically improving. Probable cellulitis, bilateral lower extremities. The patient remains on IV cefazolin, and inspection of the right lower extremity so wound shows significant improvement. No evidence of pulmonary embolism or DVT. Morbid obesity. History of diabetes mellitus. History of vitamin D deficiency. Prior history of DVT. History of osteoarthritis. History of pneumonia. History of kidney stones. Stress urinary incontinence. Plan: The patient was seen and evaluated Labs and medications reviewed Stable and on 3 L nasal cannula Titrate down the FiO2 Assessment for possible home oxygen Antibiotics per ID services This patient was seen independently by the nurse practitioner I have personally seen and examined the patient, performed the documentation and the assessment and plan as written. Number of minutes spent on the visit: 22.
--- NOTE | 2023-05-05 16:38 | P.PN ---
Subjective Progress Note Date: 05/05/23 Lorene Palma, is a 72-year-old female who presented with multiple complaints that have been occurring over the past few weeks. Patient reports she's had increased swelling to the lower extremity with weeping ulcers. Patient also reports she's had increased shortness of breath and cough. Patient also reports she's had tingling to hands bilaterally but has followed up with orthopedic surgeon outpatient. Patient has a past medical history of diabetes mellitus, DVT, I disorder, osteoporosis, pneumonia and macular degeneration. Chest x-ray completed showing marked interstitial phase pulmonary edema presumably cardiogenic etiology. Lab work revealing elevated d-dimer 2.31. CT of the chest performed showing trace pericardial effusion, scattered reticular infiltrates in the right upper lobe and both lung bases consider viral or interstitial pneumonia. Pulmonary arterial tree is adequately opacified with contrast no large central emboli are visible there is under opacification of a small segmental branch in the left lower lobe laterally no discrete thrombus is visible. This is of questioned significance small segmental pulmonary embolism cannot be excluded. Aortic arch is mildly calcified but nondilated. Will consult pulmonary services. Venous Doppler completed no deep vein thrombosis identified. Troponins negative. BNP elevated at 5250. UA positive for urinary tract infection. At this time patient will be admitted cardiology pulmonary service is consulted. Bilateral lower extremities noted for cellulitis. Infectious disease service is consulted patient started on IV antibiotics. 2-D echo ordered. COVID-19 negative. Patient started on IV Lasix On 04/26/2023 patient was seen and examined on the telemetry floor she is alert and oriented 3 in no apparent distress, she is complaining of bilateral lower extremity pain, site of cellulitis and ulcers, she is also complaining of left shoulder pain and shortness of breath with any activity, otherwise she denies any complaints there is no fever or chills no headache or dizziness no chest pain no cough no nausea or vomiting no abdominal pain no diarrhea no blood in the stools no burning with urination no frequency or urgency and no hematuria. At this time awaiting further recommendation from cardiology. Patient is maintained on IV antibiotic for bilateral lower extremity cellulitis with ulcers, awaiting further input from infectious disease. On 04/27/2023 patient alert and oriented 3. Patient reports improvement with lower infection many pain. Patient remains on IV cefazolin. Tessalon pearls added for cough. Pulmonary cardiology and infectious disease service is consulted. Vital signs temp 98.3, heart rate 97, respiratory rate 18, blood pressure 119/63 with pulse ox of 91% on 2 L On 04/28/2023 patient was seen and examined on the telemetry floor she is alert and oriented 3 in no apparent distress yesterday she had worsening shortness of breath at night with significant drop in her O2 sat duration down to the 70s O2 supplements was increased to 15 L high flow, pulmonary and cardiology are fol lowing patient is improving gradually during the day today, repeat chest x-ray ordered will follow closely. On 04/29/2023 patient is alert and oriented 3. Sliding scale insulin added. 97.9, heart rate 76, respiratory rate 14, blood pressure 112/73 with pulse ox of 94% on 6 L. Patient remains on IV Kefzol and IV steroids On 04/30/2023 patient is alert and oriented 3. Patient reports improvement with shortness of breath and bilateral leg pain. Oxygen decreasing to 5 L. Per pulmonary services steroids have been DC'd. Patient remains on IV antibiotics. Pulmonary, cardiology and infectious disease services following. Current vital signs temp 97.9, heart rate 80, respiratory rate 18, blood pressure 115/73 with pulse ox 93% on 5 L On 05/01/2023 patient was seen and examined on the telemetry floor she is alert and oriented 3 in no apparent distress there is no fever or chills no headache or dizziness she is still having shortness of breath she is still requiring 4 L of oxygen there is no chest pain no cough no nausea or vomiting no abdominal pain no diarrhea and no urinary symptoms, she remains on IV cefazolin for bilateral lower extremity cellulitis with ulcers. On 05/02/2023 patient is alert and oriented 3. Current vital signs temp 98, heart rate 86, respiratory rate 22, blood pressure 128/76 with a pulse ox 92% on 5 L. By mouth Lasix increased to twice daily. Patient remains on IV antibiotics. Infectious disease pulmonary and cardiology services following On 05/03/2023 patient alert and oriented 3 currently sitting up in chair. Patient was started on Diamox for elevated CO2. Patient also started on Aldactone per cardiology services. Pulmonary cardiology service is currently following. Current vital signs temp 97.9, pulse rate 79, respiratory rate 18, blood pressure 122/84 with a pulse ox 90% on 5 L On 05/04/2023 patient was seen and examined on the medical floor, she is alert and oriented 3 in no apparent distress, she is still complaining of shortness of breath with any activity, she is also complaining of bilateral lower extremity edema erythema and tenderness, there is a large ulcer on the right pretibial area. Patient remains on oxygen supplements at 5 L/m, she remains on Lasix and Aldactone and Diamox vital exam reveals a temperature of 98.3 pulse 72 respiration 18 blood pressure 123/71 pulse ox 93% on 5 L nasal cannula, labs to day are still pending. On 05/05/2023 patient was seen and examined on the medical floor she is alert and oriented 3 in no apparent distress there is no fever or chills no headache or dizziness no chest pain no shortness of breath at rest, she is still having significant shortness of breath with any activity she is still maintained on oxygen 3 L nasal cannula, she is still having some cough no nausea or vomiting no abdominal pain no diarrhea and no urinary symptoms. Patient is maintained on Ancef for bilateral lower extremity cellulitis infectious disease following, will recheck labs and follow-up in the am Objective - Vital Signs Vital signs: Vital Signs Temp 98 F 05/05/23 07:27 Pulse 96 05/05/23 07:27 Resp 18 05/05/23 07:27 BP 131/76 05/05/23 07:27 Pulse Ox 95 05/05/23 07:27 FiO2 Intake & Output 05/04/23 05/05/23 05/05/23 18:59 06:59 18:59 Output Total 1650 1300 Balance -1650 -1300 Weight 127.9 kg 131.5 kg Output: Urine 1650 1300 Other: Voiding Method Diaper Diaper External Catheter Incontinent External Catheter - Exam In general patient is alert and oriented x 3 in no distress HEENT head normocephalic and atraumatic Neck is supple no JVD no goiter no lymphadenopathy no carotid bruit Chest examination is clear to auscultation no crackles no wheezing Cardiac exam reveals regular heart sounds S1 and S2 no gallops no murmurs Abdomen is soft nontender no organomegaly with normal bowel sounds Extremity exam reveals bilateral pretibial erythema with superficial ulcers and 2+ edema Neurological examination reveals no gross focal deficits - Labs CBC & Chem 7: 05/05/23 06:23 05/05/23 06:23 Labs: Abnormal Lab Results - Last 24 Hours (Table) 05/04/23 05/04/23 05/04/23 Range/Units 12:05 17:14 20:44 BUN (7-17) mg/dL Glucose (74-99) mg/dL POC Glucose (mg/dL) 197 H 234 H 228 H (70-110) mg/dL Albumin (3.5-5.0) g/dL 05/05/23 05/05/23 Range/Units 06:23 07:27 BUN 29 H (7-17) mg/dL Glucose 173 H (74-99) mg/dL POC Glucose (mg/dL) 182 H (70-110) mg/dL Albumin 3.3 L (3.5-5.0) g/dL Assessment and Plan Assessment: 1. Shortness of breath 2. CHF exacerbation. Noted elevated BNP. 2-D echo ordered patient started on IV Lasix 3. Elevated d-dimer. CTA performed negative venous Doppler 4. Possible pneumonia. Pulmonary service is consulted 5. Urinary tract infection urine culture ordered 6. Lower extremity cellulitis. Patient started on IV antibiotics infectious disease service is consulted 7. History of diabetes mellitus 8. History of DVT 9. History of pneumonia 10. History of macular degeneration 11. Elevated CO2 patient started Diamox DVT prophylaxis Lovenox. GI prophylaxis Protonix Cardiology, pulmonary and infectious disease service is consulted Patient started on IV antibiotic Maintained on by mouth Lasix
[2023-05-05 17:15] LABS: Glucose,Whole Blood 189 mg/dL (70-110)
--- NOTE | 2023-05-05 17:39 | XR ---
EXAMINATION TYPE: XR chest 1V portable DATE OF EXAM: 05/05/2023 Comparison: 04/28/2023 Clinical History: 72 year-old female shortness of breath, dyspnea Findings: Heart mildly enlarged. Diffuse interstitial density persists. Somewhat increasing patchy opacity righ t midlung. Impression: 1. Mild cardiomegaly and ongoing interstitial densities. Correlate to exclude mild pulmonary vascular congestion. 2. Patchy density at the right midlung is increasing. Possible developing patchy pulmonary edema. Cor relate to exclude underlying pneumonia.
[2023-05-05 20:17] LABS: Glucose,Whole Blood 267 mg/dL (70-110)
[2023-05-05] MEDS: OXYBUTYNIN 10 MG TAB.ER.24 PO SCH (20:17)
[2023-05-06] MEDS: ceFAZolin 3 GM in SODIUM CHLORIDE 0.9% 100 ML IVPB SCH ×2 (00:07→09:15)
[2023-05-06 07:49] LABS: Glucose,Whole Blood 159 mg/dL (70-110)
[2023-05-06] MEDS: IPRATROPIUM-ALBUTEROL 3 ML NEB INHALATION SCH ×4 (07:52→19:59)
[2023-05-06] MEDS: BENZONATATE 100 MG CAP PO SCH ×3 (09:14→21:13)
[2023-05-06] MEDS: ENOXAPARIN 40 MG/0.4 ML SYRINGE SQ SCH (09:14)
[2023-05-06] MEDS: metFORMIN 500 MG TAB PO SCH ×2 (09:15→20:38)
[2023-05-06] MEDS: CHOLECALCIFEROL 25 MCG (1000 IU) TABLET PO SCH ×2 (09:15→20:37)
[2023-05-06] MEDS: SPIRONOLACTONE 25 MG TAB PO SCH (09:15)
[2023-05-06] MEDS: PANTOPRAZOLE 40 MG TABLET PO SCH (09:15)
[2023-05-06] MEDS: ATORVASTATIN 20 MG TAB PO SCH (09:15)
[2023-05-06] MEDS: FUROSEMIDE 40 MG TAB PO SCH ×2 (09:15→15:22)
[2023-05-06] MEDS: DAPAGLIFLOZIN PROPANEDIOL 10 MG TABLET PO SCH (09:15)
[2023-05-06] MEDS: acetaZOLAMIDE 250 MG TAB PO SCH (09:15)
[2023-05-06] MEDS: ASPIRIN 81 MG PO SCH ×2 (09:15→20:37)
[2023-05-06] MEDS: METOPROLOL SUCCINATE (ER) 25 MG TAB.ER.24H PO SCH ×2 (09:15→20:38)
--- NOTE | 2023-05-06 09:50 | P.PN ---
Subjective Progress Note Date: 05/06/23 Lorene Palma, is a 72-year-old female who presented with multiple complaints that have been occurring over the past few weeks. Patient reports she's had increased swelling to the lower extremity with weeping ulcers. Patient also reports she's had increased shortness of breath and cough. Patient also reports she's had tingling to hands bilaterally but has followed up with orthopedic surgeon outpatient. Patient has a past medical history of diabetes mellitus, DVT, I disorder, osteoporosis, pneumonia and macular degeneration. Chest x-ray completed showing marked interstitial phase pulmonary edema presumably cardiogenic etiology. Lab work revealing elevated d-dimer 2.31. CT of the chest performed showing trace pericardial effusion, scattered reticular infiltrates in the right upper lobe and both lung bases consider viral or interstitial pneumonia. Pulmonary arterial tree is adequately opacified with contrast no large central emboli are visible there is under opacification of a small segmental branch in the left lower lobe laterally no discrete thrombus is visible. This is of questioned significance small segmental pulmonary embolism cannot be excluded. Aortic arch is mildly calcified but nondilated. Will consult pulmonary services. Venous Doppler completed no deep vein thrombosis i dentified. Troponins negative. BNP elevated at 5250. UA positive for urinary tract infection. At this time patient will be admitted cardiology pulmonary service is consulted. Bilateral lower extremities noted for cellulitis. Infectious disease service is consulted patient started on IV antibiotics. 2-D echo ordered. COVID-19 negative. Patient started on IV Lasix On 04/26/2023 patient was seen and examined on the telemetry floor she is alert and oriented 3 in no apparent distress, she is complaining of bilateral lower extremity pain, site of cellulitis and ulcers, she is also complaining of left shoulder pain and shortness of breath with any activity, otherwise she denies any complaints there is no fever or chills no headache or dizziness no chest pain no cough no nausea or vomiting no abdominal pain no diarrhea no blood in the stools no burning with urination no frequency or urgency and no hematuria. At this time awaiting further recommendation from cardiology. Patient is maintained on IV antibiotic for bilateral lower extremity cellulitis with ulcers, awaiting further input from infectious disease. On 04/27/2023 patient alert and oriented 3. Patient reports improvement with lower infection many pain. Patient remains on IV cefazolin. Tessalon pearls added for cough. Pulmonary cardiology and infectious disease service is consulted. Vital signs temp 98.3, heart rate 97, respiratory rate 18, blood pressure 119/63 with pulse ox of 91% on 2 L On 04/28/2023 patient was seen and examined on the telemetry floor she is alert and oriented 3 in no apparent distress yesterday she had worsening shortness of breath at night with significant drop in her O2 sat duration down to the 70s O2 supplements was increased to 15 L high flow, pulmonary and cardiology are foll owing patient is improving gradually during the day today, repeat chest x-ray ordered will follow closely. On 04/29/2023 patient is alert and oriented 3. Sliding scale insulin added. 97.9, heart rate 76, respiratory rate 14, blood pressure 112/73 with pulse ox of 94% on 6 L. Patient remains on IV Kefzol and IV steroids On 04/30/2023 patient is alert and oriented 3. Patient reports improvement with shortness of breath and bilateral leg pain. Oxygen decreasing to 5 L. Per pulmonary services steroids have been DC'd. Patient remains on IV antibiotics. Pulmonary, cardiology and infectious disease services following. Current vital signs temp 97.9, heart rate 80, respiratory rate 18, blood pressure 115/73 with pulse ox 93% on 5 L On 05/01/2023 patient was seen and examined on the telemetry floor she is alert and oriented 3 in no apparent distress there is no fever or chills no headache or dizziness she is still having shortness of breath she is still requiring 4 L of oxygen there is no chest pain no cough no nausea or vomiting no abdominal pain no diarrhea and no urinary symptoms, she remains on IV cefazolin for bilateral lower extremity cellulitis with ulcers. On 05/02/2023 patient is alert and oriented 3. Current vital signs temp 98, heart rate 86, respiratory rate 22, blood pressure 128/76 with a pulse ox 92% on 5 L. By mouth Lasix increased to twice daily. Patient remains on IV antibiotics. Infectious disease pulmonary and cardiology services following On 05/03/2023 patient alert and oriented 3 currently sitting up in chair. Patient was started on Diamox for elevated CO2. Patient also started on Aldactone per cardiology services. Pulmonary cardiology service is currently following. Current vital signs temp 97.9, pulse rate 79, respiratory rate 18, blood pressure 122/84 with a pulse ox 90% on 5 L On 05/04/2023 patient was seen and examined on the medical floor, she is alert and oriented 3 in no apparent distress, she is still complaining of shortness of breath with any activity, she is also complaining of bilateral lower extremity edema erythema and tenderness, there is a large ulcer on the right pretibial area. Patient remains on oxygen supplements at 5 L/m, she remains on Lasix and Aldactone and Diamox vital exam reveals a temperature of 98.3 pulse 72 respiration 18 blood pressure 123/71 pulse ox 93% on 5 L nasal cannula, labs tod ay are still pending. On 05/05/2023 patient was seen and examined on the medical floor she is alert and oriented 3 in no apparent distress there is no fever or chills no headache or dizziness no chest pain no shortness of breath at rest, she is still having significant shortness of breath with any activity she is still maintained on oxygen 3 L nasal cannula, she is still having some cough no nausea or vomiting no abdominal pain no diarrhea and no urinary symptoms. Patient is maintained on Ancef for bilateral lower extremity cellulitis infectious disease following, will recheck labs and follow-up in the am On 05/06/2023 patient's alert and oriented 3. Still complaining of some shortness breath and coughing. Pulmonary services are following. Current vital signs temp 97.9, heart rate 79, respiratory rate 16, blood pressure 107/70 with a pulse ox of 93% on 4 L Objective - Vital Signs Vital signs: Vital Signs Temp 97.9 F 05/06/23 07:48 Pulse 79 05/06/23 07:48 Resp 16 05/06/23 07:48 BP 107/70 05/06/23 07:48 Pulse Ox 91 L 05/06/23 07:48 FiO2 Intake & Output 05/05/23 05/06/23 05/06/23 18:59 06:59 18:59 Output Total 1075 875 Balance -1075 -875 Weight 130 kg Output: Urine 1075 875 Other: Voiding Method Diaper Diaper Incontinent Incontinent External Catheter External Catheter - Exam In general patient is alert and oriented x 3 in no distress HEENT head normocephalic and atraumatic Neck is supple no JVD no goiter no lymphadenopathy no carotid bruit Chest examination is clear to auscultation no crackles no wheezing Cardiac exam reveals regular heart sounds S1 and S2 no gallops no murmurs Abdomen is soft nontender no organomegaly with normal bowel sounds Extremity exam reveals bilateral pretibial erythema with superficial ulcers and 2+ edema Neurological examination reveals no gross focal deficits - Labs CBC & Chem 7: 05/05/23 06:23 05/05/23 06:23 Labs: Abnormal Lab Results - Last 24 Hours (Table) 05/05/23 05/05/23 05/05/23 Range/Units 06:23 11:39 17:13 WBC 12.27 H (4.50-10.00) X 10*3/uL MCV 98.7 H (80.0-97.0) FL MCHC 29.3 L (32.0-37.0) g/dL RDW 15.3 H (11.5-14.5) % MPV 12.4 H (9.5-12.2) FL Immature Gran # 0.09 H (0.00-0.04) X 10*3/uL Neutrophils # 9.80 H (1.80-7.70) X 10*3/uL Eosinophils # 0.53 H (0.04-0.35) X 10*3/uL POC Glucose (mg/dL) 215 H 189 H (70-110) mg/dL 05/05/23 05/06/23 Range/Units 20:16 07:48 WBC (4.50-10.00) X 10*3/uL MCV (80.0-97.0) FL MCHC (32.0-37.0) g/dL RDW (11.5-14.5) % MPV (9.5-12.2) FL Immature Gran # (0.00-0.04) X 10*3/uL Neutrophils # (1.80-7.70) X 10*3/uL Eosinophils # (0.04-0.35) X 10*3/uL POC Glucose (mg/dL) 267 H 159 H (70-110) mg/dL Assessment and Plan Assessment: 1. Shortness of breath 2. CHF exacerbation. Noted elevated BNP. 2-D echo ordered patient started on IV Lasix 3. Elevated d-dimer. CTA performed negative venous Doppler 4. Possible pneumonia. Pulmonary service is consulted 5. Urinary tract infection urine culture ordered 6. Lower extremity cellulitis. Patient started on IV antibiotics infectious disease service is consulted 7. History of diabetes mellitus 8. History of DVT 9. History of pneumonia 10. History of macular degeneration 11. Elevated CO2 patient started Diamox DVT prophylaxis Lovenox. GI prophylaxis Protonix Cardiology, pulmonary and infectious disease service is consulted Patient started on IV antibiotic Maintained on by mouth Lasix
[2023-05-06] MEDS: INSULIN ASPART (NovoLOG) 100 UNIT/ML VIAL SQ SCH ×4 (10:07→20:38)
[2023-05-06 11:08] LABS: Basophils # (A) 0.06 X 10*3/uL (0.00-0.10); Basophils % (A) 0.6 %; Eosinophils # (A) 0.46 X 10*3/uL (0.04-0.35); Eosinophils % (A) 4.4 %; HCT 43.6 % (37.2-46.3); HGB 12.9 g/dL (12.0-15.0); Lymphocytes # (A) 1.17 X 10*3/uL (0.90-5.00); Lymphocytes % (A) 11.3 %; MCH 28.9 pg (27.0-32.0); MCHC 29.6 g/dL (32.0-37.0); MCV 97.5 FL (80.0-97.0); Mean Platelet Volume 12.3 FL (9.5-12.2); Monocytes # (A) 0.82 X 10*3/uL (0.20-1.00); Monocytes % (A) 7.9 %; NRBC Per 100 WBC 0 X 10*3/uL (0.00-0.01); Neutrophils # (A) 7.81 X 10*3/uL (1.80-7.70); Platelet Count 218 X 10*3/uL (140-440); RBC 4.47 X 10*6/uL (4.10-5.20); RDW 15.3 % (11.5-14.5)
[2023-05-06 11:50] LABS: Glucose,Whole Blood 163 mg/dL (70-110)
--- NOTE | 2023-05-06 13:14 | P.PN ---
Subjective Progress Note Date: 05/06/23 Lorene Palma, is a 72-year-old female who presented with multiple complaints that have been occurring over the past few weeks. Patient reports she's had increased swelling to the lower extremity with weeping ulcers. Patient also reports she's had increased shortness of breath and cough. Patient also reports she's had tingling to hands bilaterally but has followed up with orthopedic surgeon outpatient. Patient has a past medical history of diabetes mellitus, DVT, I disorder, osteoporosis, pneumonia and macular degeneration. Chest x-ray completed showing marked interstitial phase pulmonary edema presumably cardiogenic etiology. Lab work revealing elevated d-dimer 2.31. CT of the chest performed showing trace pericardial effusion, scattered reticular infiltrates in the right upper lobe and both lung bases consider viral or interstitial pneumonia. Pulmonary arterial tree is adequately opacified with contrast no large central emboli are visible there is under opacification of a small segmental branch in the left lower lobe laterally no discrete thrombus is visible. This is of questioned significance small segmental pulmonary embolism cannot be excluded. Aortic arch is mildly calcified but nondilated. Will consult pulmonary services. Venous Doppler completed no deep vein thrombosis identified. Troponins negative. BNP elevated at 5250. UA positive for urinary tract infection. At this time patient will be admitted cardiology pulmonary service is consulted. Bilateral lower extremities noted for cellulitis. Infectious disease service is consulted patient started on IV antibiotics. 2-D echo ordered. COVID-19 negative. Patient started on IV Lasix On 04/26/2023 patient was seen and examined on the telemetry floor she is alert and oriented 3 in no apparent distress, she is complaining of bilateral lower extremity pain, site of cellulitis and ulcers, she is also complaining of left shoulder pain and shortness of breath with any activity, otherwise she denies any complaints there is no fever or chills no headache or dizziness no chest pain no cough no nausea or vomiting no abdominal pain no diarrhea no blood in the stools no burning with urination no frequency or urgency and no hematuria. At this time awaiting further recommendation from cardiology. Patient is maintained on IV antibiotic for bilateral lower extremity cellulitis with ulcers, awaiting further input from infectious disease. On 04/27/2023 patient alert and oriented 3. Patient reports improvement with lower infection many pain. Patient remains on IV cefazolin. Tessalon pearls added for cough. Pulmonary cardiology and infectious disease service is consulted. Vital signs temp 98.3, heart rate 97, respiratory rate 18, blood pressure 119/63 with pulse ox of 91% on 2 L On 04/28/2023 patient was seen and examined on the telemetry floor she is alert and oriented 3 in no apparent distress yesterday she had worsening shortness of breath at night with significant drop in her O2 sat duration down to the 70s O2 supplements was increased to 15 L high flow, pulmonary and cardiology are fol lowing patient is improving gradually during the day today, repeat chest x-ray ordered will follow closely. On 04/29/2023 patient is alert and oriented 3. Sliding scale insulin added. 97.9, heart rate 76, respiratory rate 14, blood pressure 112/73 with pulse ox of 94% on 6 L. Patient remains on IV Kefzol and IV steroids On 04/30/2023 patient is alert and oriented 3. Patient reports improvement with shortness of breath and bilateral leg pain. Oxygen decreasing to 5 L. Per pulmonary services steroids have been DC'd. Patient remains on IV antibiotics. Pulmonary, cardiology and infectious disease services following. Current vital signs temp 97.9, heart rate 80, respiratory rate 18, blood pressure 115/73 with pulse ox 93% on 5 L On 05/01/2023 patient was seen and examined on the telemetry floor she is alert and oriented 3 in no apparent distress there is no fever or chills no headache or dizziness she is still having shortness of breath she is still requiring 4 L of oxygen there is no chest pain no cough no nausea or vomiting no abdominal pain no diarrhea and no urinary symptoms, she remains on IV cefazolin for bilateral lower extremity cellulitis with ulcers. On 05/02/2023 patient is alert and oriented 3. Current vital signs temp 98, heart rate 86, respiratory rate 22, blood pressure 128/76 with a pulse ox 92% on 5 L. By mouth Lasix increased to twice daily. Patient remains on IV antibiotics. Infectious disease pulmonary and cardiology services following On 05/03/2023 patient alert and oriented 3 currently sitting up in chair. Patient was started on Diamox for elevated CO2. Patient also started on Aldactone per cardiology services. Pulmonary cardiology service is currently following. Current vital signs temp 97.9, pulse rate 79, respiratory rate 18, blood pressure 122/84 with a pulse ox 90% on 5 L On 05/04/2023 patient was seen and examined on the medical floor, she is alert and oriented 3 in no apparent distress, she is still complaining of shortness of breath with any activity, she is also complaining of bilateral lower extremity edema erythema and tenderness, there is a large ulcer on the right pretibial area. Patient remains on oxygen supplements at 5 L/m, she remains on Lasix and Aldactone and Diamox vital exam reveals a temperature of 98.3 pulse 72 respiration 18 blood pressure 123/71 pulse ox 93% on 5 L nasal cannula, labs to day are still pending. On 05/05/2023 patient was seen and examined on the medical floor she is alert and oriented 3 in no apparent distress there is no fever or chills no headache or dizziness no chest pain no shortness of breath at rest, she is still having significant shortness of breath with any activity she is still maintained on oxygen 3 L nasal cannula, she is still having some cough no nausea or vomiting no abdominal pain no diarrhea and no urinary symptoms. Patient is maintained on Ancef for bilateral lower extremity cellulitis infectious disease following, will recheck labs and follow-up in the am On 05/06/2023 patient's alert and oriented 3. Still complaining of some shortness breath and coughing. Pulmonary services are following. Current vital signs temp 97.9, heart rate 79, respiratory rate 16, blood pressure 107/70 with a pulse ox of 93% on 4 L Chest x-ray done yesterday revealed evidence of cardiomegaly with ongoing interstitial densities and patchy density at the right mid lung which is increasing. Objective - Vital Signs Vital signs: Vital Signs Temp 97.9 F 05/06/23 07:48 Pulse 79 05/06/23 07:48 Resp 16 05/06/23 07:48 BP 107/70 05/06/23 07:48 Pulse Ox 91 L 05/06/23 07:48 FiO2 Intake & Output 05/05/23 05/06/23 05/06/23 18:59 06:59 18:59 Output Total 1075 875 Balance -1075 -875 Weight 130 kg Output: Urine 1075 875 Other: Voiding Method Diaper Diaper Diaper Incontinent Incontinent Incontinent External Catheter External Catheter External Catheter - Exam In general patient is alert and oriented x 3 in no distress HEENT head normocephalic and atraumatic Neck is supple no JVD no goiter no lymphadenopathy no carotid bruit Chest examination is clear to auscultation no crackles no wheezing Cardiac exam reveals regular heart sounds S1 and S2 no gallops no murmurs Abdomen is soft nontender no organomegaly with normal bowel sounds Extremity exam reveals bilateral pretibial erythema with superficial ulcers and 2+ edema Neurological examination reveals no gross focal deficits - Labs CBC & Chem 7: 05/06/23 06:17 05/05/23 06:23 Labs: Abnormal Lab Results - Last 24 Hours (Table) 05/05/23 05/05/23 05/06/23 Range/Units 17:13 20:16 06:17 WBC 10.40 H (4.50-10.00) X 10*3/uL MCV 97.5 H (80.0-97.0) FL MCHC 29.6 L (32.0-37.0) g/dL RDW 15.3 H (11.5-14.5) % MPV 12.3 H (9.5-12.2) FL Immature Gran # 0.08 H (0.00-0.04) X 10*3/uL Neutrophils # 7.81 H (1.80-7.70) X 10*3/uL Eosinophils # 0.46 H (0.04-0.35) X 10*3/uL POC Glucose (mg/dL) 189 H 267 H (70-110) mg/dL 05/06/23 05/06/23 Range/Units 07:48 11:48 WBC (4.50-10.00) X 10*3/uL MCV (80.0-97.0) FL MCHC (32.0-37.0) g/dL RDW (11.5-14.5) % MPV (9.5-12.2) FL Immature Gran # (0.00-0.04) X 10*3/uL Neutrophils # (1.80-7.70) X 10*3/uL Eosinophils # (0.04-0.35) X 10*3/uL POC Glucose (mg/dL) 159 H 163 H (70-110) mg/dL Assessment and Plan Assessment: 1. Shortness of breath 2. CHF exacerbation. Noted elevated BNP. 2-D echo ordered patient started on IV Lasix 3. Elevated d-dimer. CTA performed negative venous Doppler 4. Possible pneumonia. Pulmonary service is consulted 5. Urinary tract infection urine culture ordered 6. Lower extremity cellulitis. Patient started on IV antibiotics infectious disease service is consulted 7. History of diabetes mellitus 8. History of DVT 9. History of pneumonia 10. History of macular degeneration 11. Elevated CO2 patient started Diamox DVT prophylaxis Lovenox. GI prophylaxis Protonix Cardiology, pulmonary and infectious disease service is consulted Patient started on IV antibiotic Maintained on by mouth Lasix
[2023-05-06 13:30] LABS: ALT 8 U/L (8-44); AST 18 U/L (13-35); Albumin 3.6 g/dL (3.8-4.9); Albumin/Globulin Ratio 1.12 Ratio (1.60-3.17); Alkaline Phosphatase 146 U/L (41-126); BUN/Creat Ratio 11.58 Ratio (12.00-20.00); Blood Urea Nitrogen 13.9 mg/dL (9.0-27.0); Calcium 9.1 mg/dL (8.7-10.3); Carbon Dioxide 17.3 mmol/L (21.6-31.8); Chloride 104 mmol/L (96-109); Globulin 3.2 g/dL (1.6-3.3); Glucose 79 mg/dL (70-110); Potassium 4.1 mmol/L (3.5-5.5); Sodium 140 mmol/L (135-145); Total Bilirubin <0.2 mg/dL (0.3-1.2); Total Protein 6.8 g/dL (6.2-8.2)
--- NOTE | 2023-05-06 13:34 | P.PN ---
Subjective Progress Note Date: 05/06/23 72-year-old female seen in the emergency department, room 15. She's here with her . She apparently presented to the emergency department, on April 24, with multiple complaints including leg swelling, shortness of breath, cough, and generally just not feeling well. She also has some tingling to her hands bilaterally, and apparently has been seen by one of the hand surgeons. The patient is laying flat in bed. She is on a couple liters of oxygen. She's not receiving any IV fluids. She tells me that she has cellulitis of the lower extremities. She is a rather large woman. She also tells me that her only major medical problem is diabetes mellitus. Although, she apparently has a hist ory of DVT, osteoarthritis, and pneumonia. She also has a previous history of kidney stones, status post lithotripsy. Current labs include a white count 6.6, hemoglobin 12.9, hematocrit 42.6, and a platelet count of 101,000. D-dimer is 2.31. Venous blood gases showed CO2 49 and a pH is 7.36. Sodium 140, potassium 4.7, chlorides 105, CO2 25, BUN 22, creatinine 0.69. The N-terminal proBNP is e levated at 5250. Troponins were negative 2. Urine showed 2+ protein and moderate blood and large leukocyte esterase, 93 RBCs 74 WBCs, rare bacteria, and occasional mucus. Testing for coronavirus was negative. Chest x-ray showed changes consistent with pulmonary edema/fluid overload. CT angiogram was negative for pulmonary embolism. Doppler of the lower semis was negative for DVT. Progress note dated 04/26/2023. 72-year-old obese female seen yesterday in the emergency department. Today, she is seen in room 368. The patient's currently on 3 L of oxygen. She is receiving Lasix and her fluid overload, and Ancef, for her lower extremity edema. Her lower extremity edema is a bit better today. She does feel a bit better today, less short of breath. Current laboratory data includes a glucose of 181. Testing for harper virus was negative. Troponin was less than 0.012, 2. Progress note dated 04/27/2023. 73-year-old female initially seen in the emergency department, but is seen in room 368 today. She continues on oxygen at 3 L. No IV fluids. For her cough, we ordered some Tessalon Perles. In addition, she continues on Ancef for her bilateral lower extremity cellulitis. Also, she is receiving diuretics, for her pulmonary edema. Today's laboratory data includes a glucose of 137. Testing for harper virus was negative. Blood cultures are negative. On today's evaluation of 04/28/2023, I'm seeing the patient for a follow-up. She is on 10 L of oxygen by nasal cannula. She is in for increased lower extremity edema, hypoxic respiratory failure, lower extremity infection. The patient has some mild cardiomegaly on her CT angiogram. No evidence of any pulmonary embolism. Her echocardiogram showed LV function with ejection fraction of 50-55%. She has severe RV dilatation and severe pulmonary hypertension and she may have an underlying obstructive sleep apnea. No recent CBC, most recent electrolytes show a BUN of 34 with a creatinine 1.1 and sodium level is at 138. She is currently on oxygen at 10 L she is on IV cefazolin. She is also on oral Lasix 40 mg by mouth daily. She remains on bronchodilators with albuterol HFA, IV Solu-Medrol 20 mg every 8 hours and Lovenox 40 mg subcu portably prophylaxis. On 04/29/2023, the patient is sitting up in a recliner. Doing well. She is down to 6 L of oxygen nasal cannula. She is still on Lasix. She is in a negative fluid balance. Labs from today are still pending. No other significant events overnight. No angina. No palpitations. No chest pain. Remains on albuterol HFA, IV Solu-Medrol 20 mg every 8 hours then Lovenox 40 mg subcu for DVT prophylaxis. On 04/30/2023, the patient is being seen for a follow-up. Doing well. No new complaints. The patient has been weaned down to 5 L of oxygen by nasal cannula with a pulse ox of 95%. The patient is diuresing adequately and the patient is a negative fluid balance of at least 2 L over the past 24 hours. The patient is currently on Lasix 40 mg by mouth daily. The patient is still on IV cefazolin regarding lower extremity cellulitis. Edema still present in the legs bilaterally. Blood work from today shows a BUN of 44 with a creatinine of 0.7. Sodium level is at 138. The risks count of 9.3 with a hemoglobin 15.1 and a platelet count of 243. No chest pain. No interval worsening shortness of breath. On 05/01/2023, the patient has been weaned down to 5 L. Her current pulse ox is 93%. She is making excellent urine output. Overall fluid balance is -2 L over the past 24 hours. She remains on Lasix 40 mg by mouth and the dose was increased up to twice a day. She remains on IV cefazolin. Lower extremity cellulitis is also improving. Mentally she is awake and alert and communicating. She is trying to increase her mobility. She is working with physical therapy. Blood work shows a sodium level of 141, BUN is 34 with a creatinine of 0.6. LFTs are normal. The viscosity 0.8 with a hemoglobin 15.4 and a platelet count of 178. on today's evaluation of 05/02/2023, the patient is still on 5 L of O2 nasal cannula. She is producing excellent urine output. There is significant improvement in lower extremity edema and the wound over the right lower extremity so is essentially eating at this point in time. There is no active drainage. The wound is very healthy-looking. Edema lower extremity is also improving. Meanwhile, the patient remains on oral Lasix. Fluid balance is negative at least 2 L over the past 24 hours.White cell count of 8.2 with a hemoglobin of 13.4 and a platelet count of 181. BUN is at 28 with a creatinine of 0.6 and a sodium level is at 140. Potassium levels at 4.0. The patient re atif on IV cefazolin. The patient is on Lasix 40 mg by mouth twice a day. Rest of the medications remain unchanged. The patient and KVO. We will balance is -2.3 L over the past 24 hours. On 05/03/2023, no new complaints. The patient is sitting up on a chair. She is currently on room air oxygen. Oxygen saturation is improved. The patient was transferred to the [facility]. The fluid balance is negative at least 2.3 L. The labs are all stable, the viscosity 11.1, he was 13.8, serum bicarbonate is 41, BUN is 28 with a creatinine of 0.66 05/04/2023, condition is stable. Still on 5 L of O2 nasal cannula. She patient continues to the stable and saturations improved. We should be able to wean down FiO2. No new complaints otherwise for now. The patient is seen today 05/05/2023 in follow-up on the regular medical floor. She is currently resting in bed. Awake and alert in no acute distress. She denies any worsening shortness of breath, cough or congestion. He is maintainin g O2 saturation in the 90s on 3 L/m per nasal cannula. She's afebrile. Hemodynamically stable. Blood cultures revealed no growth. White count 12.2. Hemoglobin 13.5. Platelets 232. Sodium 138. Potassium 3.7. Bicarb 25. BUN 29. Creatinine 0.83. Glucose 173. She is continued on DuoNeb inhalations. Remains on antibiotics in the form of cefazolin. Continued on oral diuretics. Currently in a negative balance. The patient is seen today 05/06/2023 in follow-up on the regular medical floor. She is currently laying flat in bed. Awake and alert in no acute distress. Denies any worsening shortness of breath. She continues with a dry nonproductive cough. She is maintaining good O2 saturations in the 90s on 4 L/m per nasal cannula. She's afebrile. Hemodynamically stable. Follow-up chest x- ray shows mild cardiomegaly and ongoing interstitial densities. Mild pulmonary vascular congestion. Patchy density in the right midlung. I count 10.4. Hemoglobin 12.9. Platelets 218. Glucose 159. She continues on bronchodilators. Oral diuretics. Lovenox for DVT prophylaxis. Remains on cefazolin per ID services. Objective - Vital Signs Vital signs: Vital Signs Temp 97.9 F 05/06/23 07:48 Pulse 79 05/06/23 07:48 Resp 16 05/06/23 07:48 BP 107/70 05/06/23 07:48 Pulse Ox 91 L 05/06/23 07:48 FiO2 Intake & Output 05/05/23 05/06/23 05/06/23 18:59 06:59 18:59 Output Total 1075 875 Balance -1075 -875 Weight 130 kg Output: Urine 1075 875 Other: Voiding Method Diaper Diaper Diaper Incontinent Incontinent Incontinent External Catheter External Catheter External Catheter - Exam GENERAL EXAM: Alert, pleasant morbidly obese 72-year-old female patient, on 4 L nasal cannula, comfortable in no apparent distress. HEAD: Normocephalic. EYES: Normal reaction of pupils, equal size. NOSE: Clear with pink turbinates. THROAT: No erythema or exudates. NECK: No masses, no JVD. CHEST: No chest wall deformity. LUNGS: Equal air entry with few scattered rhonchi. CVS: S1 and S2 normal with no audible murmur, regular rhythm. ABDOMEN: Obese, normal bowel sounds, no guarding or rigidity. SPINE: No scoliosis or deformity SKIN: His of chronic venous stasis of the bilateral lower extremities with cellulitis. CENTRAL NERVOUS SYSTEM: No focal deficits, tone is normal in all 4 extremities. EXTREMITIES: Cellulitis of the bilateral lower extremities, Matthias wraps in place. No clubbing, no cyanosis. Peripheral pulses are intact. - Labs CBC & Chem 7: 05/06/23 06:17 05/05/23 06:23 Labs: Abnormal Lab Results - Last 24 Hours (Table) 05/05/23 05/05/23 05/06/23 Range/Units 17:13 20:16 06:17 WBC 10.40 H (4.50-10.00) X 10*3/uL MCV 97.5 H (80.0-97.0) FL MCHC 29.6 L (32.0-37.0) g/dL RDW 15.3 H (11.5-14.5) % MPV 12.3 H (9.5-12.2) FL Immature Gran # 0.08 H (0.00-0.04) X 10*3/uL Neutrophils # 7.81 H (1.80-7.70) X 10*3/uL Eosinophils # 0.46 H (0.04-0.35) X 10*3/uL POC Glucose (mg/dL) 189 H 267 H (70-110) mg/dL 05/06/23 05/06/23 Range/Units 07:48 11:48 WBC (4.50-10.00) X 10*3/uL MCV (80.0-97.0) FL MCHC (32.0-37.0) g/dL RDW (11.5-14.5) % MPV (9.5-12.2) FL Immature Gran # (0.00-0.04) X 10*3/uL Neutrophils # (1.80-7.70) X 10*3/uL Eosinophils # (0.04-0.35) X 10*3/uL POC Glucose (mg/dL) 159 H 163 H (70-110) mg/dL Assessment and Plan Assessment: Acute hypoxic respiratory failure, currently on 4 L of oxygen by nasal cannula. Shortness of breath is multifactorial. There is an obvious component of CHF with preserved LV function and severe right-sided heart failure with RV dysfu nction and fluid overload, improving with diuretics. Patient is currently on oral Lasix. The patient continues to produce adequate amount of urine. Right ventricular failure with severe pulmonary hypertension. Shortness of breath, consistent with fluid overload, given the x-ray changes, lower extremity edema, and elevated BNP. Clinically improving. Probable cellulitis, bilateral lower extremities. The patient remains on cefazolin, and inspection of the right lower extremity so wound shows significant improvement. No evidence of pulmonary embolism or DVT. Morbid obesity. History of diabetes mellitus. History of vitamin D deficiency. Prior history of DVT. History of osteoarthritis. History of pneumonia. History of kidney stones. Stress urinary incontinence. Plan: The patient was seen and evaluated Chest x-ray, labs and medications reviewed Stable and on 4 L nasal cannula Remains on bronchodilators, diuretics Lovenox for DVT prophylaxis Encouraged the increased use of the incentive spirometer Encouraged increase activity and up in a chair as much as possible Titrate down the FiO2 Antibiotics per ID services This patient was seen independently by the nurse practitioner who performed the medical decision making I have personally seen and examined the patient, performed the documentation and the assessment and plan as written. Number of minutes spent on the visit: 23.
[2023-05-06 17:17] LABS: Glucose,Whole Blood 207 mg/dL (70-110)
--- NOTE | 2023-05-06 17:42 | P.PN ---
Subjective Progress Note Date: 05/02/23 Principal diagnosis: Reason for follow-up is bilateral lower extremity cellulitis Patient is a 72-year-old female with a past medical history significant for diabetes mellitus DVT osteoarthritis pneumonia patient was brought into the hospital for evaluation of increasing swelling to bilateral lower extremity, patient has been diagnosed with bilateral lower extremity c ellulitis. On today's evaluation that is 05/02/2023, the patient remains to be afebrile and is breathing comfortably on 3 L nasal cannula oxygen, and patient denies chest pain shortness of breath, and no cough or sputum production, patient denies nausea/vomiting, denies having any diarrhea and no abdominal pain the patient lower extremity extremity pain and swelling has decreased in intensity did have some discomfort with the dressing change on the right leg Patient did have white count of 8.2 and a creatinine of 0.66, blood cultures are negative Objective - Vital Signs Vital signs: Vital Signs Temp 98.5 F 05/02/23 11:51 Pulse 85 05/02/23 11:51 Resp 20 05/02/23 11:51 BP 155/85 05/02/23 11:51 Pulse Ox 92 L 05/02/23 11:51 FiO2 Intake & Output 05/01/23 05/02/23 05/02/23 18:59 06:59 18:59 Intake Total 1278 540 780 Output Total 3300 850 700 Balance -2021 80 Weight 164.5 kg 157 kg Intake: Intake, IV Titration 100 Amount ceFAZolin 3 gm In Sodium 100 Chloride 0.9% 100 ml @ 200 mls/hr IVPB Q8HR [facility] Rx#:[id number] Oral 1178 540 780 Output: Urine 3300 850 700 Other: Voiding Method External Catheter External Catheter External Catheter # Bowel Movements 2 - Exam GENERAL DESCRIPTION: An elderly female lying in bed in no distress RESPIRATORY SYSTEM: Unlabored breathing , clear to auscultation anteriorly HEART: S1 S2 regular rate and rhythm , ABDOMEN: Soft , no tenderness EXTREMITIES: Bilateral lower extremity currently wrapped with Matthias wrap - Labs CBC & Chem 7: 05/06/23 06:17 05/06/23 06:17 Labs: Abnormal Lab Results - Last 24 Hours (Table) 05/01/23 05/01/23 05/02/23 Range/Units 16:39 20:15 05:54 MCHC (31.0-37.0) g/dL Lymphocytes # (1.0-4.8) k/uL Chloride (98-107) mmol/L Carbon Dioxide (22-30) mmol/L BUN (7-17) mg/dL Glucose (74-99) mg/dL POC Glucose (mg/dL) 146 H 195 H 156 H (70-110) mg/dL Total Protein (6.3-8.2) g/dL Albumin (3.5-5.0) g/dL 05/02/23 05/02/23 05/02/23 Range/Units 08:06 08:06 11:19 MCHC 29.9 L (31.0-37.0) g/dL Lymphocytes # 0.9 L (1.0-4.8) k/uL Chloride 92 L (98-107) mmol/L Carbon Dioxide 39 H (22-30) mmol/L BUN 28 H (7-17) mg/dL Glucose 137 H (74-99) mg/dL POC Glucose (mg/dL) 171 H (70-110) mg/dL Total Protein 5.8 L (6.3-8.2) g/dL Albumin 3.1 L (3.5-5.0) g/dL Assessment and Plan (1) Bilateral lower leg cellulitis Current Visit: Yes Status: Acute Code(s): L03.116 - CELLULITIS OF LEFT LOWER LIMB; L03.115 - CELLULITIS OF RIGHT LOWER LIMB SNOMED Code(s): 250402862 (2) Penicillin allergy Current Visit: Yes Status: Acute Code(s): Z88.0 - ALLERGY STATUS TO PENICILLIN SNOMED Code(s): 88605043 Plan: 1patient presented to hospital with increasing swelling to bilateral lower extremity patient did have evidence of erythema warmth and tenderness to touch concerning for cellulitis likely from gram-positive skin poli such as trapped less likely MRSA or gram-negative infection 2-positive UA but no urinary symptoms more likely asymptomatic bacteriuria 3patient to call To continue with silver dressing to the open area followed by Matthias wrap dressing to be changed every 72 hours 4patient to continue with the cefazolin and plan to finish therapy with oral Keflex Dictation was produced using [employer] software. please excuse any grammatical, word or spelling errors. Time with Patient: Less than 30
--- NOTE | 2023-05-06 17:44 | P.PN ---
Subjective Progress Note Date: 05/03/23 Principal diagnosis: Reason for follow-up is bilateral lower extremity cellulitis This is a teleheath visit Patient is a 72-year-old female with a past medical history si gnificant for diabetes mellitus DVT osteoarthritis pneumonia patient was brought into the hospital for evaluation of increasing swelling to bilateral lower extremity, patient has been diagnosed with bilateral lower extremity cellulitis. On today's evaluation that is 05/03/2023, the patient continues to be afebrile and is breathing comfortably on 5 L nasal cannula oxygen, and patient denies chest pain has been complaining of shortness of breath on exertion did have occasional dry cough , patient denies nausea/vomiting, denies having any diarrhea and no abdominal pain the patient lower extremity extremity pain and swelling has decreased in intensity Patient did have white count of 11.1 and a creatinine of 0.66, blood cultures are negative Objective - Vital Signs Vital signs: Vital Signs Temp 97.5 F L 05/03/23 01:16 Pulse 84 05/03/23 01:16 Resp 28 H 05/03/23 01:16 BP 138/77 05/03/23 01:16 Pulse Ox 91 L 05/03/23 01:16 FiO2 Intake & Output 05/02/23 05/03/23 05/03/23 18:59 06:59 18:59 Intake Total 1545 Output Total 1950 Balance -405 Weight 153 kg Intake: Oral 1545 Output: Urine 1950 Other: Voiding Method External Catheter Diaper External Catheter # Voids 1 - Exam GENERAL DESCRIPTION: An elderly female lying in bed in no distress RESPIRATORY SYSTEM: Unlabored breathing , clear to auscultation anteriorly HEART: S1 S2 regular rate and rhythm , ABDOMEN: Soft , no tenderness EXTREMITIES: Bilateral lower extremity currently wrapped with Matthias wrap Exam completed with the help of HAND PRINTED CIRCUIT BOARD ASSEMBLER - Labs CBC & Chem 7: 05/06/23 06:17 05/06/23 06:17 Labs: Abnormal Lab Results - Last 24 Hours (Table) 05/02/23 05/02/23 05/02/23 Range/Units 08:06 11:19 16:22 WBC (3.8-10.6) k/uL Hct (34.0-46.0) % MCHC (31.0-37.0) g/dL RDW (11.5-15.5) % Neutrophils # (1.3-7.7) k/uL Chloride 92 L (98-107) mmol/L Carbon Dioxide 39 H (22-30) mmol/L BUN 28 H (7-17) mg/dL Glucose 137 H (74-99) mg/dL POC Glucose (mg/dL) 171 H 286 H (70-110) mg/dL Total Protein 5.8 L (6.3-8.2) g/dL Albumin 3.1 L (3.5-5.0) g/dL 05/02/23 05/03/23 05/03/23 Range/Units 20:05 04:42 04:42 WBC 11.1 H (3.8-10.6) k/uL Hct 46.1 H (34.0-46.0) % MCHC 30.0 L (31.0-37.0) g/dL RDW 15.6 H (11.5-15.5) % Neutrophils # 8.7 H (1.3-7.7) k/uL Chloride 92 L (98-107) mmol/L Carbon Dioxide 41 H* (22-30) mmol/L BUN 28 H (7-17) mg/dL Glucose 144 H (74-99) mg/dL POC Glucose (mg/dL) 241 H (70-110) mg/dL Total Protein 6.0 L (6.3-8.2) g/dL Albumin 3.2 L (3.5-5.0) g/dL 05/03/23 Range/Units 07:35 WBC (3.8-10.6) k/uL Hct (34.0-46.0) % MCHC (31.0-37.0) g/dL RDW (11.5-15.5) % Neutrophils # (1.3-7.7) k/uL Chloride (98-107) mmol/L Carbon Dioxide (22-30) mmol/L BUN (7-17) mg/dL Glucose (74-99) mg/dL POC Glucose (mg/dL) 146 H (70-110) mg/dL Total Protein (6.3-8.2) g/dL Albumin (3.5-5.0) g/dL Assessment and Plan (1) Bilateral lower leg cellulitis Current Visit: Yes Status: Acute Code(s): L03.116 - CELLULITIS OF LEFT LOWER LIMB; L03.115 - CELLULITIS OF RIGHT LOWER LIMB SNOMED Code(s): 970150125 (2) Penicillin allergy Current Visit: Yes Status: Acute Code(s): Z88.0 - ALLERGY STATUS TO PENICILLIN SNOMED Code(s): 70582674 Plan: 1patient presented to hospital with increasing swelling to bilateral lower extremity patient did have evidence of erythema warmth and tenderness to touch concerning for cellulitis likely from gram-positive skin poli such as trapped less likely MRSA or gram-negative infection 2-positive UA but no urinary symptoms more likely asymptomatic bacteriuria 3patient to call To continue with silver dressing to the open area followed by Matthias wrap dressing to be changed every 72 hours 4patient to continue with the cefazolin while inpatient and monitor clinical course closely Dictation was produced using [employer] dictation software. please excuse any grammatical, word or spelling errors.
--- NOTE | 2023-05-06 17:45 | P.PN ---
Subjective Progress Note Date: 05/04/23 Principal diagnosis: Reason for follow-up is bilateral lower extremity cellulitis This is a teleheath visit Patient is a 72-year-old female with a past medical history si gnificant for diabetes mellitus DVT osteoarthritis pneumonia patient was brought into the hospital for evaluation of increasing swelling to bilateral lower extremity, patient has been diagnosed with bilateral lower extremity cellulitis. On today's evaluation that is 05/04/2023, the patient remains to be afebrile and is breathing comfortably on 5 L nasal cannula oxygen, and patient denies chest pain denies any worsening shortness of breath cough or sputum production , patient denies nausea/vomiting, denies having any diarrhea and no abdominal pain the patient lower extremity extremity pain and swelling has decreased in intensity Patient did have white count of 11.1 and a creatinine of 0.66 as of 05/03/2023 no lab draw today, blood cultures are negative Objective - Vital Signs Vital signs: Vital Signs Temp 98.3 F 05/04/23 07:29 Pulse 72 05/04/23 07:29 Resp 18 05/04/23 07:29 BP 123/71 05/04/23 07:29 Pulse Ox 96 05/04/23 08:12 FiO2 Intake & Output 05/03/23 05/04/23 05/04/23 18:59 06:59 18:59 Intake Total 1600 Output Total 800 Balance 1600 -800 Weight 140.2 kg Intake: Intake, IV Titration 200 Amount ceFAZolin 3 gm In Sodium 200 Chloride 0.9% 100 ml @ 200 mls/hr IVPB Q8HR [facility] Rx#:[id number] Oral 1400 Output: Urine 800 Other: Voiding Method Diaper Diaper External Catheter External Catheter - Exam GENERAL DESCRIPTION: An elderly female lying in bed in no distress RESPIRATORY SYSTEM: Unlabored breathing , clear to auscultation anteriorly HEART: S1 S2 regular rate and rhythm , ABDOMEN: Soft , no tenderness EXTREMITIES: Bilateral lower extremity currently wrapped with Matthias wrap Exam completed with the help of NAIL MAKING MACHINE TENDER - Labs CBC & Chem 7: 05/06/23 06:17 05/06/23 06:17 Labs: Abnormal Lab Results - Last 24 Hours (Table) 05/03/23 05/03/23 05/03/23 Range/Units 12:18 17:41 20:55 POC Glucose (mg/dL) 164 H 159 H 241 H (70-110) mg/dL 05/04/23 Range/Units 07:28 POC Glucose (mg/dL) 142 H (70-110) mg/dL Assessment and Plan (1) Bilateral lower leg cellulitis Current Visit: Yes Status: Acute Code(s): L03.116 - CELLULITIS OF LEFT LOWER LIMB; L03.115 - CELLULITIS OF RIGHT LOWER LIMB SNOMED Code(s): 047133303 (2) Penicillin allergy Current Visit: Yes Status: Acute Code(s): Z88.0 - ALLERGY STATUS TO PENICILLIN SNOMED Code(s): 38187821 Plan: 1patient presented to hospital with increasing swelling to bilateral lower extremity patient did have evidence of erythema warmth and tenderness to touch concerning for cellulitis likely from gram-positive skin poli such as trapped less likely MRSA or gram-negative infection 2-patient local wound care continue with silver dressing to the open area followed by Matthias wrap dressing to be changed every 72 hours 3we will continue the patient on cefazolin while the patient plan is for oral antibiotics on discharge Dictation was produced using [employer] dictation software. please excuse any grammatical, word or spelling errors. Time with Patient: Less than 30
--- NOTE | 2023-05-06 17:47 | P.PN ---
Subjective Progress Note Date: 05/05/23 Principal diagnosis: Reason for follow-up is bilateral lower extremity cellulitis Patient is a 72-year-old female with a past medical history significant for diabetes mellitus DVT osteoarthritis pneumonia patient was brought into the hospital for evaluation of increasing swelling to bilateral lower extremity, patient has been diagnosed with bilateral lower extremity cellulitis. On today's evaluation that is 05/05/2023, the patient continues to be afebrile patient is currently on 3 L cannula oxygen denies any worsening shortness of breath patient is complaining of a cough with occasional sputum production which is slightly more than yesterday, patient denies any abdominal pain no nausea no vomiting no diarrhea or any worsening pain to the lower extremity Patient did have white count is slightly up from 12.27, creatinine 0.83 Objective - Vital Signs Vital signs: Vital Signs Temp 98.4 F 05/05/23 12:35 Pulse 85 05/05/23 12:35 Resp 18 05/05/23 12:35 BP 112/76 05/05/23 12:35 Pulse Ox 90 L 05/05/23 12:35 FiO2 Intake & Output 05/04/23 05/05/23 05/05/23 18:59 06:59 18:59 Output Total 1657 1615 675 Balance -9749 -3337 -456 Weight 127.9 kg 131.5 kg Output: Urine 1650 1300 675 Other: Voiding Method Diaper Diaper External Catheter Incontinent External Catheter - Exam GENERAL DESCRIPTION: An elderly female lying in bed in no distress RESPIRATORY SYSTEM: Unlabored breathing , clear to auscultation anteriorly HEART: S1 S2 regular rate and rhythm , ABDOMEN: Soft , no tenderness EXTREMITIES: Bilateral lower extremity currently wrapped with Matthias wrap - Labs CBC & Chem 7: 05/06/23 06:17 05/06/23 06:17 Labs: Abnormal Lab Results - Last 24 Hours (Table) 05/04/23 05/04/23 05/05/23 Range/Units 17:14 20:44 06:23 WBC (4.50-10.00) X 10*3/uL MCV (80.0-97.0) FL MCHC (32.0-37.0) g/dL RDW (11.5-14.5) % MPV (9.5-12.2) FL Immature Gran # (0.00-0.04) X 10*3/uL Neutrophils # (1.80-7.70) X 10*3/uL Eosinophils # (0.04-0.35) X 10*3/uL BUN 29 H (7-17) mg/dL Glucose 173 H (74-99) mg/dL POC Glucose (mg/dL) 234 H 228 H (70-110) mg/dL Albumin 3.3 L (3.5-5.0) g/dL 05/05/23 05/05/23 05/05/23 Range/Units 06:23 07:27 11:39 WBC 12.27 H (4.50-10.00) X 10*3/uL MCV 98.7 H (80.0-97.0) FL MCHC 29.3 L (32.0-37.0) g/dL RDW 15.3 H (11.5-14.5) % MPV 12.4 H (9.5-12.2) FL Immature Gran # 0.09 H (0.00-0.04) X 10*3/uL Neutrophils # 9.80 H (1.80-7.70) X 10*3/uL Eosinophils # 0.53 H (0.04-0.35) X 10*3/uL BUN (7-17) mg/dL Glucose (74-99) mg/dL POC Glucose (mg/dL) 182 H 215 H (70-110) mg/dL Albumin (3.5-5.0) g/dL Assessment and Plan (1) Bilateral lower leg cellulitis Current Visit: Yes Status: Acute Code(s): L03.116 - CELLULITIS OF LEFT LOWER LIMB; L03.115 - CELLULITIS OF RIGHT LOWER LIMB SNOMED Code(s): 962902390 (2) Penicillin allergy Current Visit: Yes Status: Acute Code(s): Z88.0 - ALLERGY STATUS TO PENICILLIN SNOMED Code(s): 54646549 Plan: 1patient presented to hospital with increasing swelling to bilateral lower extremity patient did have evidence of erythema warmth and tenderness to touch concerning for cellulitis likely from gram-positive skin poli such as trapped less likely MRSA or gram-negative infection 2-patient local wound care continue with silver dressing to the open area followed by Matthias wrap dressing to be changed every 72 hours 3patient is complaining of more respiratory symptoms with cough and sputum production chest x-ray ordered results will be followed continue with the cefazolin Dictation was produced using [employer] dictation software. please excuse any grammatical, word or spelling errors. Time with Patient: Less than 30
--- NOTE | 2023-05-06 17:49 | P.PN ---
Subjective Progress Note Date: 05/06/23 Principal diagnosis: Reason for follow-up is bilateral lower extremity cellulitis Patient is a 72-year-old female with a past medical history significant for diabetes mellitus DVT osteoarthritis pneumonia patient was brought into the hospital for evaluation of increasing swelling to bilateral lower extremity, patient has been diagnosed with bilateral lower extremity cellulitis. On today's evaluation that is 05/06/2023, the patient remains to be afebrile, the patient denies any worsening shortness of breath and is currently on 4 L nasal cannula oxygen, patient is complaining of a cough with occasional yellow sputum production , patient denies any abdominal pain no nausea no vomiting no diarrhea or any worsening pain to the lower extremity Patient did have white count is 10.40 creatinine 1.2 Objective - Vital Signs Vital signs: Vital Signs Temp 97.9 F 05/06/23 07:48 Pulse 79 05/06/23 07:48 Resp 16 05/06/23 07:48 BP 107/70 05/06/23 07:48 Pulse Ox 91 L 05/06/23 07:48 FiO2 Intake & Output 05/05/23 05/06/23 05/06/23 18:59 06:59 18:59 Output Total 1075 875 Balance -1075 -875 Weight 130 kg Output: Urine 1075 875 Other: Voiding Method Diaper Diaper Diaper Incontinent Incontinent Incontinent External Catheter External Catheter External Catheter - Exam GENERAL DESCRIPTION: An elderly female lying in bed in no distress RESPIRATORY SYSTEM: Unlabored breathing , clear to auscultation anteriorly HEART: S1 S2 regular rate and rhythm , ABDOMEN: Soft , no tenderness EXTREMITIES: Bilateral lower extremity swelling and redness has improved wound on the right leg has decreased in size no slough tissue - Labs CBC & Chem 7: 05/06/23 06:17 05/06/23 06:17 Labs: Abnormal Lab Results - Last 24 Hours (Table) 05/05/23 05/05/23 05/05/23 Range/Units 11:39 17:13 20:16 WBC (4.50-10.00) X 10*3/uL MCV (80.0-97.0) FL MCHC (32.0-37.0) g/dL RDW (11.5-14.5) % MPV (9.5-12.2) FL Immature Gran # (0.00-0.04) X 10*3/uL Neutrophils # (1.80-7.70) X 10*3/uL Eosinophils # (0.04-0.35) X 10*3/uL POC Glucose (mg/dL) 215 H 189 H 267 H (70-110) mg/dL 05/06/23 05/06/23 Range/Units 06:17 07:48 WBC 10.40 H (4.50-10.00) X 10*3/uL MCV 97.5 H (80.0-97.0) FL MCHC 29.6 L (32.0-37.0) g/dL RDW 15.3 H (11.5-14.5) % MPV 12.3 H (9.5-12.2) FL Immature Gran # 0.08 H (0.00-0.04) X 10*3/uL Neutrophils # 7.81 H (1.80-7.70) X 10*3/uL Eosinophils # 0.46 H (0.04-0.35) X 10*3/uL POC Glucose (mg/dL) 159 H (70-110) mg/dL Assessment and Plan (1) Bilateral lower leg cellulitis Current Visit: Yes Status: Acute Code(s): L03.116 - CELLULITIS OF LEFT LOWER LIMB; L03.115 - CELLULITIS OF RIGHT LOWER LIMB SNOMED Code(s): 879875971 (2) Penicillin allergy Current Visit: Yes Status: Acute Code(s): Z88.0 - ALLERGY STATUS TO PENICILLIN SNOMED Code(s): 91683522 (3) Abnormal chest x-ray Current Visit: Yes Status: Acute Code(s): R93.89 - ABNORMAL FINDINGS ON DX IMAGING OF OTH BODY STRUCTURES SNOMED Code(s): 191254637 Plan: 1patient presented to hospital with increasing swelling to bilateral lower extremity patient did have evidence of erythema warmth and tenderness to touch concerning for cellulitis likely from gram-positive skin poli such as trapped less likely MRSA or gram-negative infection 2-patient local wound care continue with silver dressing to the open area followed by Matthias wrap dressing to be changed every 72 hours 3patient is complaining of more respiratory symptoms with cough and sputum production chest x-ray concern for possible developing infiltrate versus fluid, we will wait for the procalcitonin level, discontinue cefazolin and start the patient on Omnicef Multiple questions concerned were answered Dictation was produced using [employer] dictation software. please excuse any gramm atical, word or spelling errors. Time with Patient: Less than 30
[2023-05-06 18:14] LABS: Color,Urine Light Yellow
[2023-05-06 18:15] LABS: Appearance,Urine Slightly Cloudy (Clear); Bilirubin,Urine Negative (Negative); Glucose,Urine (UA) 4+ (Negative); Ketones,Urine 1+ (Negative); Leukocyte Esterase,Urine Small (Negative); Nitrite,Urine Negative (Negative); Protein,Urine Trace (Negative); Specific Gravity,Urine 1.005 (1.001-1.035); Urobilinogen,Urine <2.0 mg/dL (<2.0)
[2023-05-06 18:45] LABS: Blood,Urine Large (Negative)
[2023-05-06 18:46] LABS: RBC,Urine 68 /hpf (0-5); Squamous Epithelial Cell,Urine <1 /hpf (0-4); WBC,Urine 21 /hpf (0-5)
[2023-05-06 20:24] LABS: Glucose,Whole Blood 221 mg/dL (70-110)
[2023-05-06] MEDS: CEFDINIR 300 MG CAP PO SCH (20:37)
[2023-05-06] MEDS: OXYBUTYNIN 10 MG TAB.ER.24 PO SCH (20:38)
[2023-05-07 07:22] LABS: Glucose,Whole Blood 160 mg/dL (70-110)
[2023-05-07] MEDS: IPRATROPIUM-ALBUTEROL 3 ML NEB INHALATION SCH ×4 (07:56→20:21)
--- NOTE | 2023-05-07 09:20 | P.PN ---
Subjective Progress Note Date: 05/07/23 Lorene Palma, is a 72-year-old female who presented with multiple complaints that have been occurring over the past few weeks. Patient reports she's had increased swelling to the lower extremity with weeping ulcers. Patient also reports she's had increased shortness of breath and cough. Patient also reports she's had tingling to hands bilaterally but has followed up with orthopedic surgeon outpatient. Patient has a past medical history of diabetes mellitus, DVT, I disorder, osteoporosis, pneumonia and macular degeneration. Chest x-ray completed showing marked interstitial phase pulmonary edema presumably cardiogenic etiology. Lab work revealing elevated d-dimer 2.31. CT of the chest performed showing trace pericardial effusion, scattered reticular infiltrates in the right upper lobe and both lung bases consider viral or interstitial pneumonia. Pulmonary arterial tree is adequately opacified with contrast no large central emboli are visible there is under opacification of a small segmental branch in the left lower lobe laterally no discrete thrombus is visible. This is of questioned significance small segmental pulmonary embolism cannot be excluded. Aortic arch is mildly calcified but nondilated. Will consult pulmonary services. Venous Doppler completed no deep vein thrombosis identified. Troponins negative. BNP elevated at 5250. UA positive for urinary tract infection. At this time patient will be admitted cardiology pulmonary service is consulted. Bilateral lower extremities noted for cellulitis. Infectious disease service is consulted patient started on IV antibiotics. 2-D echo ordered. COVID-19 negative. Patient started on IV Lasix On 04/26/2023 patient was seen and examined on the telemetry floor she is alert and oriented 3 in no apparent distress, she is complaining of bilateral lower extremity pain, site of cellulitis and ulcers, she is also complaining of left shoulder pain and shortness of breath with any activity, otherwise she denies any complaints there is no fever or chills no headache or dizziness no chest pain no cough no nausea or vomiting no abdominal pain no diarrhea no blood in the stools no burning with urination no frequency or urgency and no hematuria. At this time awaiting further recommendation from cardiology. Patient is maintained on IV antibiotic for bilateral lower extremity cellulitis with ulcers, awaiting further input from infectious disease. On 04/27/2023 patient alert and oriented 3. Patient reports improvement with lower infection many pain. Patient remains on IV cefazolin. Tessalon pearls added for cough. Pulmonary cardiology and infectious disease service is consulted. Vital signs temp 98.3, heart rate 97, respiratory rate 18, blood pressure 119/63 with pulse ox of 91% on 2 L On 04/28/2023 patient was seen and examined on the telemetry floor she is alert and oriented 3 in no apparent distress yesterday she had worsening shortness of breath at night with significant drop in her O2 sat duration down to the 70s O2 supplements was increased to 15 L high flow, pulmonary and cardiology are fol lowing patient is improving gradually during the day today, repeat chest x-ray ordered will follow closely. On 04/29/2023 patient is alert and oriented 3. Sliding scale insulin added. 97.9, heart rate 76, respiratory rate 14, blood pressure 112/73 with pulse ox of 94% on 6 L. Patient remains on IV Kefzol and IV steroids On 04/30/2023 patient is alert and oriented 3. Patient reports improvement with shortness of breath and bilateral leg pain. Oxygen decreasing to 5 L. Per pulmonary services steroids have been DC'd. Patient remains on IV antibiotics. Pulmonary, cardiology and infectious disease services following. Current vital signs temp 97.9, heart rate 80, respiratory rate 18, blood pressure 115/73 with pulse ox 93% on 5 L On 05/01/2023 patient was seen and examined on the telemetry floor she is alert and oriented 3 in no apparent distress there is no fever or chills no headache or dizziness she is still having shortness of breath she is still requiring 4 L of oxygen there is no chest pain no cough no nausea or vomiting no abdominal pain no diarrhea and no urinary symptoms, she remains on IV cefazolin for bilateral lower extremity cellulitis with ulcers. On 05/02/2023 patient is alert and oriented 3. Current vital signs temp 98, heart rate 86, respiratory rate 22, blood pressure 128/76 with a pulse ox 92% on 5 L. By mouth Lasix increased to twice daily. Patient remains on IV antibiotics. Infectious disease pulmonary and cardiology services following On 05/03/2023 patient alert and oriented 3 currently sitting up in chair. Patient was started on Diamox for elevated CO2. Patient also started on Aldactone per cardiology services. Pulmonary cardiology service is currently following. Current vital signs temp 97.9, pulse rate 79, respiratory rate 18, blood pressure 122/84 with a pulse ox 90% on 5 L On 05/04/2023 patient was seen and examined on the medical floor, she is alert and oriented 3 in no apparent distress, she is still complaining of shortness of breath with any activity, she is also complaining of bilateral lower extremity edema erythema and tenderness, there is a large ulcer on the right pretibial area. Patient remains on oxygen supplements at 5 L/m, she remains on Lasix and Aldactone and Diamox vital exam reveals a temperature of 98.3 pulse 72 respiration 18 blood pressure 123/71 pulse ox 93% on 5 L nasal cannula, labs to day are still pending. On 05/05/2023 patient was seen and examined on the medical floor she is alert and oriented 3 in no apparent distress there is no fever or chills no headache or dizziness no chest pain no shortness of breath at rest, she is still having significant shortness of breath with any activity she is still maintained on oxygen 3 L nasal cannula, she is still having some cough no nausea or vomiting no abdominal pain no diarrhea and no urinary symptoms. Patient is maintained on Ancef for bilateral lower extremity cellulitis infectious disease following, will recheck labs and follow-up in the am On 05/06/2023 patient's alert and oriented 3. Still complaining of some shortness breath and coughing. Pulmonary services are following. Current vital signs temp 97.9, heart rate 79, respiratory rate 16, blood pressure 107/70 with a pulse ox of 93% on 4 L Chest x-ray done yesterday revealed evidence of cardiomegaly with ongoing interstitial densities and patchy density at the right mid lung which is increasing. On 05/07/2023 patient is alert and oriented 3. Sputum culture ordered per pulmonary. Ultrasound of bladder and abdomen completed results pending. Vital signs temp 98.2, her 85, respiratory rate 16, blood pressure 117/76 with pulse ox of 91% on 4 L Objective - Vital Signs Vital signs: Vital Signs Temp 98.2 F 05/07/23 07:24 Pulse 80 05/07/23 08:10 Resp 16 05/07/23 07:24 BP 117/76 05/07/23 07:24 Pulse Ox 90 L 05/07/23 08:00 FiO2 Intake & Output 05/06/23 05/07/23 05/07/23 18:59 06:59 18:59 Other: Voiding Method External Catheter Diaper Incontinent External Catheter # Voids 2 - Exam In general patient is alert and oriented x 3 in no distress HEENT head normocephalic and atraumatic Neck is supple no JVD no goiter no lymphadenopathy no carotid bruit Chest examination is clear to auscultation no crackles no wheezing Cardiac exam reveals regular heart sounds S1 and S2 no gallops no murmurs Abdomen is soft nontender no organomegaly with normal bowel sounds Extremity exam reveals bilateral pretibial erythema with superficial ulcers and 2+ edema Neurological examination reveals no gross focal deficits - Labs CBC & Chem 7: 05/06/23 06:17 12 06:17 Labs: Abnormal Lab Results - Last 24 Hours (Table) 05/06/23 05/06/23 05/06/23 Range/Units 06:17 06:17 06:17 WBC 10.40 H (4.50-10.00) X 10*3/uL MCV 97.5 H (80.0-97.0) FL MCHC 29.6 L (32.0-37.0) g/dL RDW 15.3 H (11.5-14.5) % MPV 12.3 H (9.5-12.2) FL Immature Gran # 0.08 H (0.00-0.04) X 10*3/uL Neutrophils # 7.81 H (1.80-7.70) X 10*3/uL Eosinophils # 0.46 H (0.04-0.35) X 10*3/uL Carbon Dioxide 17.3 L (21.6-31.8) mmol/L Anion Gap 18.70 H (4.00-12.00) mmol/L Est GFR (CKD-EPI) 48 L (>=60) BUN/Creatinine Ratio 11.58 L (12.00-20.00) Ratio POC Glucose (mg/dL) (70-110) mg/dL Total Bilirubin <0.2 L (0.3-1.2) mg/dL Alkaline Phosphatase 146 H (41-126) U/L Albumin 3.6 L (3.8-4.9) g/dL Albumin/Globulin Ratio 1.12 L (1.60-3.17) Ratio Procalcitonin 0.10 H (0.02-0.09) ng/mL Urine Appearance (Clear) Urine Protein (Negative) Urine Glucose (UA) (Negative) Urine Ketones (Negative) Urine Blood (Negative) Ur Leukocyte Esterase (Negative) Urine RBC (0-5) /hpf Urine WBC (0-5) /hpf 05/06/23 05/06/23 05/06/23 Range/Units 11:48 17:16 17:35 WBC (4.50-10.00) X 10*3/uL MCV (80.0-97.0) FL MCHC (32.0-37.0) g/dL RDW (11.5-14.5) % MPV (9.5-12.2) FL Immature Gran # (0.00-0.04) X 10*3/uL Neutrophils # (1.80-7.70) X 10*3/uL Eosinophils # (0.04-0.35) X 10*3/uL Carbon Dioxide (21.6-31.8) mmol/L Anion Gap (4.00-12.00) mmol/L Est GFR (CKD-EPI) (>=60) BUN/Creatinine Ratio (12.00-20.00) Ratio POC Glucose (mg/dL) 163 H 207 H (70-110) mg/dL Total Bilirubin (0.3-1.2) mg/dL Alkaline Phosphatase (41-126) U/L Albumin (3.8-4.9) g/dL Albumin/Globulin Ratio (1.60-3.17) Ratio Procalcitonin (0.02-0.09) ng/mL Urine Appearance Slightly Cloudy H (Clear) Urine Protein Trace H (Negative) Urine Glucose (UA) 4+ H (Negative) Urine Ketones 1+ H (Negative) Urine Blood Large H (Negative) Ur Leukocyte Esterase Small H (Negative) Urine RBC 68 H (0-5) /hpf Urine WBC 21 H (0-5) /hpf 05/06/23 05/07/23 Range/Units 20:23 07:21 WBC (4.50-10.00) X 10*3/uL MCV (80.0-97.0) FL MCHC (32.0-37.0) g/dL RDW (11.5-14.5) % MPV (9.5-12.2) FL Immature Gran # (0.00-0.04) X 10*3/uL Neutrophils # (1.80-7.70) X 10*3/uL Eosinophils # (0.04-0.35) X 10*3/uL Carbon Dioxide (21.6-31.8) mmol/L Anion Gap (4.00-12.00) mmol/L Est GFR (CKD-EPI) (>=60) BUN/Creatinine Ratio (12.00-20.00) Ratio POC Glucose (mg/dL) 221 H 160 H (70-110) mg/dL Total Bilirubin (0.3-1.2) mg/dL Alkaline Phosphatase (41-126) U/L Albumin (3.8-4.9) g/dL Albumin/Globulin Ratio (1.60-3.17) Ratio Procalcitonin (0.02-0.09) ng/mL Urine Appearance (Clear) Urine Protein (Negative) Urine Glucose (UA) (Negative) Urine Ketones (Negative) Urine Blood (Negative) Ur Leukocyte Esterase (Negative) Urine RBC (0-5) /hpf Urine WBC (0-5) /hpf Assessment and Plan Assessment: 1. Shortness of breath 2. CHF exacerbation. Noted elevated BNP. 2-D echo ordered patient started on IV Lasix 3. Elevated d-dimer. CTA performed negative venous Doppler 4. Possible pneumonia. Pulmonary service is consulted 5. Urinary tract infection urine culture ordered 6. Lower extremity cellulitis. Patient started on IV antibiotics infectious disease service is consulted 7. History of diabetes mellitus 8. History of DVT 9. History of pneumonia 10. History of macular degeneration 11. Elevated CO2 patient started Diamox DVT prophylaxis Lovenox. GI prophylaxis Protonix Cardiology, pulmonary and infectious disease service is consulted Patient started on IV antibiotic sputum culture ordered Maintained on by mouth Lasix
[2023-05-07] MEDS: INSULIN ASPART (NovoLOG) 100 UNIT/ML VIAL SQ SCH ×6 (10:16→21:20)
[2023-05-07] MEDS: ATORVASTATIN 20 MG TAB PO SCH (10:17)
[2023-05-07] MEDS: SPIRONOLACTONE 25 MG TAB PO SCH (10:17)
[2023-05-07] MEDS: ASPIRIN 81 MG PO SCH ×2 (10:17→21:16)
[2023-05-07] MEDS: BENZONATATE 100 MG CAP PO SCH ×3 (10:17→21:17)
[2023-05-07] MEDS: PANTOPRAZOLE 40 MG TABLET PO SCH (10:18)
[2023-05-07] MEDS: FUROSEMIDE 40 MG TAB PO SCH ×2 (10:18→17:29)
[2023-05-07] MEDS: CHOLECALCIFEROL 25 MCG (1000 IU) TABLET PO SCH ×2 (10:18→21:17)
[2023-05-07] MEDS: METOPROLOL SUCCINATE (ER) 25 MG TAB.ER.24H PO SCH ×2 (10:18→21:17)
[2023-05-07] MEDS: acetaZOLAMIDE 250 MG TAB PO SCH (10:19)
[2023-05-07] MEDS: CEFDINIR 300 MG CAP PO SCH ×2 (10:19→21:17)
[2023-05-07] MEDS: DAPAGLIFLOZIN PROPANEDIOL 10 MG TABLET PO SCH (10:19)
[2023-05-07] MEDS: ENOXAPARIN 40 MG/0.4 ML SYRINGE SQ SCH (10:19)
[2023-05-07] MEDS: metFORMIN 500 MG TAB PO SCH ×2 (10:23→21:16)
[2023-05-07 12:01] LABS: Glucose,Whole Blood 156 mg/dL (70-110)
--- NOTE | 2023-05-07 12:23 | P.PN ---
Subjective Progress Note Date: 05/07/23 72-year-old female seen in the emergency department, room 15. She's here with her . She apparently presented to the emergency department, on April 24, with multiple complaints including leg swelling, shortness of breath, cough, and generally just not feeling well. She also has some tingling to her hands bilaterally, and apparently has been seen by one of the hand surgeons. The patient is laying flat in bed. She is on a couple liters of oxygen. She's not receiving any IV fluids. She tells me that she has cellulitis of the lower extremities. She is a rather large woman. She also tells me that her only major medical problem is diabetes mellitus. Although, she apparently has a hist ory of DVT, osteoarthritis, and pneumonia. She also has a previous history of kidney stones, status post lithotripsy. Current labs include a white count 6.6, hemoglobin 12.9, hematocrit 42.6, and a platelet count of 101,000. D-dimer is 2.31. Venous blood gases showed CO2 49 and a pH is 7.36. Sodium 140, potassium 4.7, chlorides 105, CO2 25, BUN 22, creatinine 0.69. The N-terminal proBNP is e levated at 5250. Troponins were negative 2. Urine showed 2+ protein and moderate blood and large leukocyte esterase, 93 RBCs 74 WBCs, rare bacteria, and occasional mucus. Testing for coronavirus was negative. Chest x-ray showed changes consistent with pulmonary edema/fluid overload. CT angiogram was negative for pulmonary embolism. Doppler of the lower semis was negative for DVT. Progress note dated 04/26/2023. 72-year-old obese female seen yesterday in the emergency department. Today, she is seen in room 368. The patient's currently on 3 L of oxygen. She is receiving Lasix and her fluid overload, and Ancef, for her lower extremity edema. Her lower extremity edema is a bit better today. She does feel a bit better today, less short of breath. Current laboratory data includes a glucose of 181. Testing for harper virus was negative. Troponin was less than 0.012, 2. Progress note dated 04/27/2023. 73-year-old female initially seen in the emergency department, but is seen in room 368 today. She continues on oxygen at 3 L. No IV fluids. For her cough, we ordered some Tessalon Perles. In addition, she continues on Ancef for her bilateral lower extremity cellulitis. Also, she is receiving diuretics, for her pulmonary edema. Today's laboratory data includes a glucose of 137. Testing for harper virus was negative. Blood cultures are negative. On today's evaluation of 04/28/2023, I'm seeing the patient for a follow-up. She is on 10 L of oxygen by nasal cannula. She is in for increased lower extremity edema, hypoxic respiratory failure, lower extremity infection. The patient has some mild cardiomegaly on her CT angiogram. No evidence of any pulmonary embolism. Her echocardiogram showed LV function with ejection fraction of 50-55%. She has severe RV dilatation and severe pulmonary hypertension and she may have an underlying obstructive sleep apnea. No recent CBC, most recent electrolytes show a BUN of 34 with a creatinine 1.1 and sodium level is at 138. She is currently on oxygen at 10 L she is on IV cefazolin. She is also on oral Lasix 40 mg by mouth daily. She remains on bronchodilators with albuterol HFA, IV Solu-Medrol 20 mg every 8 hours and Lovenox 40 mg subcu portably prophylaxis. On 04/29/2023, the patient is sitting up in a recliner. Doing well. She is down to 6 L of oxygen nasal cannula. She is still on Lasix. She is in a negative fluid balance. Labs from today are still pending. No other significant events overnight. No angina. No palpitations. No chest pain. Remains on albuterol HFA, IV Solu-Medrol 20 mg every 8 hours then Lovenox 40 mg subcu for DVT prophylaxis. On 04/30/2023, the patient is being seen for a follow-up. Doing well. No new complaints. The patient has been weaned down to 5 L of oxygen by nasal cannula with a pulse ox of 95%. The patient is diuresing adequately and the patient is a negative fluid balance of at least 2 L over the past 24 hours. The patient is currently on Lasix 40 mg by mouth daily. The patient is still on IV cefazolin regarding lower extremity cellulitis. Edema still present in the legs bilaterally. Blood work from today shows a BUN of 44 with a creatinine of 0.7. Sodium level is at 138. The risks count of 9.3 with a hemoglobin 15.1 and a platelet count of 243. No chest pain. No interval worsening shortness of breath. On 05/01/2023, the patient has been weaned down to 5 L. Her current pulse ox is 93%. She is making excellent urine output. Overall fluid balance is -2 L over the past 24 hours. She remains on Lasix 40 mg by mouth and the dose was increased up to twice a day. She remains on IV cefazolin. Lower extremity cellulitis is also improving. Mentally she is awake and alert and communicating. She is trying to increase her mobility. She is working with physical therapy. Blood work shows a sodium level of 141, BUN is 34 with a creatinine of 0.6. LFTs are normal. The viscosity 0.8 with a hemoglobin 15.4 and a platelet count of 178. on today's evaluation of 05/02/2023, the patient is still on 5 L of O2 nasal cannula. She is producing excellent urine output. There is significant improvement in lower extremity edema and the wound over the right lower extremity so is essentially eating at this point in time. There is no active drainage. The wound is very healthy-looking. Edema lower extremity is also improving. Meanwhile, the patient remains on oral Lasix. Fluid balance is negative at least 2 L over the past 24 hours.White cell count of 8.2 with a hemoglobin of 13.4 and a platelet count of 181. BUN is at 28 with a creatinine of 0.6 and a sodium level is at 140. Potassium levels at 4.0. The patient re atif on IV cefazolin. The patient is on Lasix 40 mg by mouth twice a day. Rest of the medications remain unchanged. The patient and KVO. We will balance is -2.3 L over the past 24 hours. On 05/03/2023, no new complaints. The patient is sitting up on a chair. She is currently on room air oxygen. Oxygen saturation is improved. The patient was transferred to the [facility]. The fluid balance is negative at least 2.3 L. The labs are all stable, the viscosity 11.1, he was 13.8, serum bicarbonate is 41, BUN is 28 with a creatinine of 0.66 05/04/2023, condition is stable. Still on 5 L of O2 nasal cannula. She patient continues to the stable and saturations improved. We should be able to wean down FiO2. No new complaints otherwise for now. The patient is seen today 05/05/2023 in follow-up on the regular medical floor. She is currently resting in bed. Awake and alert in no acute distress. She denies any worsening shortness of breath, cough or congestion. He is maintainin g O2 saturation in the 90s on 3 L/m per nasal cannula. She's afebrile. Hemodynamically stable. Blood cultures revealed no growth. White count 12.2. Hemoglobin 13.5. Platelets 232. Sodium 138. Potassium 3.7. Bicarb 25. BUN 29. Creatinine 0.83. Glucose 173. She is continued on DuoNeb inhalations. Remains on antibiotics in the form of cefazolin. Continued on oral diuretics. Currently in a negative balance. The patient is seen today 05/06/2023 in follow-up on the regular medical floor. She is currently laying flat in bed. Awake and alert in no acute distress. Denies any worsening shortness of breath. She continues with a dry nonproductive cough. She is maintaining good O2 saturations in the 90s on 4 L/m per nasal cannula. She's afebrile. Hemodynamically stable. Follow-up chest x- ray shows mild cardiomegaly and ongoing interstitial densities. Mild pulmonary vascular congestion. Patchy density in the right midlung. I count 10.4. Hemoglobin 12.9. Platelets 218. Glucose 159. She continues on bronchodilators. Oral diuretics. Lovenox for DVT prophylaxis. Remains on cefazolin per ID services. The patient is seen today 05/07/2023 in follow-up on the regular medical floor. She is sitting up in bed. Awake and alert. Having breakfast. Denies any worsening shortness of breath, cough or congestion. Maintaining O2 saturations in the 90s on 4 L/m per nasal cannula. She's been afebrile. Hemodynamically stable. Glucose 156. She remains on Diamox, Lasix, Aldactone. Continued on bronchodilators, Tessalon Perles. Lovenox for DVT prophylaxis. Antibiotics in the form of Omnicef. Objective - Vital Signs Vital signs: Vital Signs Temp 98.2 F 05/07/23 07:24 Pulse 80 05/07/23 08:10 Resp 16 05/07/23 07:24 BP 117/76 05/07/23 07:24 Pulse Ox 90 L 05/07/23 08:00 FiO2 Intake & Output 05/06/23 05/07/23 05/07/23 18:59 06:59 18:59 Other: Voiding Method External Catheter Diaper Incontinent External Catheter # Voids 2 - Exam GENERAL EXAM: Alert, morbidly obese 72-year-old female patient, sitting up in bed, on 4 L nasal cannula, comfortable in no apparent distress. HEAD: Normocephalic. EYES: Normal reaction of pupils, equal size. NOSE: Clear with pink turbinates. THROAT: No erythema or exudates. NECK: No masses, no JVD. CHEST: No chest wall deformity. LUNGS: Equal air entry with few scattered rhonchi. CVS: S1 and S2 normal with no audible murmur, regular rhythm. ABDOMEN: Obese, normal bowel sounds, no guarding or rigidity. SPINE: No scoliosis or deformity SKIN: His of chronic venous stasis of the bilateral lower extremities with cellulitis. CENTRAL NERVOUS SYSTEM: No focal deficits, tone is normal in all 4 extremities. EXTREMITIES: Cellulitis of the bilateral lower extremities, Matthias wraps in place. No clubbing, no cyanosis. Peripheral pulses are intact. - Labs CBC & Chem 7: 05/06/23 06:17 05/06/23 06:17 Labs: Abnormal Lab Results - Last 24 Hours (Table) 05/06/23 05/06/23 05/06/23 Range/Units 06:17 06:17 17:16 Carbon Dioxide 17.3 L (21.6-31.8) mmol/L Anion Gap 18.70 H (4.00-12.00) mmol/L Est GFR (CKD-EPI) 48 L (>=60) BUN/Creatinine Ratio 11.58 L (12.00-20.00) Ratio POC Glucose (mg/dL) 207 H (70-110) mg/dL Total Bilirubin <0.2 L (0.3-1.2) mg/dL Alkaline Phosphatase 146 H (41-126) U/L Albumin 3.6 L (3.8-4.9) g/dL Albumin/Globulin Ratio 1.12 L (1.60-3.17) Ratio Procalcitonin 0.10 H (0.02-0.09) ng/mL Urine Appearance (Clear) Urine Protein (Negative) Urine Glucose (UA) (Negative) Urine Ketones (Negative) Urine Blood (Negative) Ur Leukocyte Esterase (Negative) Urine RBC (0-5) /hpf Urine WBC (0-5) /hpf 05/06/23 05/06/23 05/07/23 Range/Units 17:35 20:23 07:21 Carbon Dioxide (21.6-31.8) mmol/L Anion Gap (4.00-12.00) mmol/L Est GFR (CKD-EPI) (>=60) BUN/Creatinine Ratio (12.00-20.00) Ratio POC Glucose (mg/dL) 221 H 160 H (70-110) mg/dL Total Bilirubin (0.3-1.2) mg/dL Alkaline Phosphatase (41-126) U/L Albumin (3.8-4.9) g/dL Albumin/Globulin Ratio (1.60-3.17) Ratio Procalcitonin (0.02-0.09) ng/mL Urine Appearance Slightly Cloudy H (Clear) Urine Protein Trace H (Negative) Urine Glucose (UA) 4+ H (Negative) Urine Ketones 1+ H (Negative) Urine Blood Large H (Negative) Ur Leukocyte Esterase Small H (Negative) Urine RBC 68 H (0-5) /hpf Urine WBC 21 H (0-5) /hpf 05/07/23 Range/Units 12:00 Carbon Dioxide (21.6-31.8) mmol/L Anion Gap (4.00-12.00) mmol/L Est GFR (CKD-EPI) (>=60) BUN/Creatinine Ratio (12.00-20.00) Ratio POC Glucose (mg/dL) 156 H (70-110) mg/dL Total Bilirubin (0.3-1.2) mg/dL Alkaline Phosphatase (41-126) U/L Albumin (3.8-4.9) g/dL Albumin/Globulin Ratio (1.60-3.17) Ratio Procalcitonin (0.02-0.09) ng/mL Urine Appearance (Clear) Urine Protein (Negative) Urine Glucose (UA) (Negative) Urine Ketones (Negative) Urine Blood (Negative) Ur Leukocyte Esterase (Negative) Urine RBC (0-5) /hpf Urine WBC (0-5) /hpf Assessment and Plan Assessment: Acute hypoxic respiratory failure, currently on 4 L of oxygen by nasal cannula. Shortness of breath is multifactorial. There is an obvious component of CHF with preserved LV function and severe right-sided heart failure with RV dysfunction and fluid overload, improving with diuretics. Remains on oral diuretics. The patient continues to produce adequate amount of urine. Right ventricular failure with severe pulmonary hypertension. Shortness of breath, consistent with fluid overload, given the x-ray changes, lower extremity edema, and elevated BNP. Clinically improving. Probable cellulitis, bilateral lower extremities. The patient remains on Omnicef, so wound shows significant improvement. No evidence of pulmonary embolism or DVT. Morbid obesity. History of diabetes mellitus. History of vitamin D deficiency. Prior history of DVT. History of osteoarthritis. History of pneumonia. History of kidney stones. Stress urinary incontinence. Plan: The patient was seen and evaluated Labs and medications reviewed Remains on oral diuretics Transitioned to oral antibiotics Increase the use of the incentive spirometer Increase her activity Titrate down the FiO2 Plan is to return home with home care upon discharge This patient was seen independently by the nurse practitioner who performed the medical decision making I have personally seen and examined the patient, performed the documentation and the assessment and plan as written. Number of minutes spent on the visit: 24.
--- NOTE | 2023-05-07 15:10 | US ---
EXAMINATION TYPE: US kidneys/renal and bladder DATE OF EXAM: 05/06/2023 COMPARISON: NONE CLINICAL INDICATION: Female, 72 years old with history of hematuria; Hx multiple episodes of renal st ones with lithotripsy EXAM MEASUREMENTS: Right Kidney: 13.5 x 4.6 x 4.9 cm Left Kidney: 11.7 x 6.8 x 5.5 cm Right Kidney: Cyst = 8.5 x 6.4 x 8.4 cm Left Kidney: cyst = 3.4 x 2.6 x 3.3 cm Bladder: wnl Bilateral Jets seen: Yes Limited exam; patient not in bed and did not want to transfer, scanned sitting semi erect. Limited visualization of bilateral kidneys due to obesity. IMPRESSION: 1. Bilateral renal cysts
[2023-05-07 17:21] LABS: Glucose,Whole Blood 181 mg/dL (70-110)
[2023-05-07 20:18] LABS: Glucose,Whole Blood 233 mg/dL (70-110)
[2023-05-07] MEDS: OXYBUTYNIN 10 MG TAB.ER.24 PO SCH (21:16)
[2023-05-08 07:59] LABS: Glucose,Whole Blood 163 mg/dL (70-110)
[2023-05-08] MEDS: IPRATROPIUM-ALBUTEROL 3 ML NEB INHALATION SCH ×4 (08:31→18:23)
[2023-05-08] MEDS: INSULIN ASPART (NovoLOG) 100 UNIT/ML VIAL SQ SCH ×4 (08:41→20:43)
[2023-05-08] MEDS: ENOXAPARIN 40 MG/0.4 ML SYRINGE SQ SCH (08:41)
[2023-05-08] MEDS: ASPIRIN 81 MG PO SCH ×2 (08:42→21:00)
[2023-05-08] MEDS: METOPROLOL SUCCINATE (ER) 25 MG TAB.ER.24H PO SCH ×2 (08:42→21:00)
[2023-05-08] MEDS: CHOLECALCIFEROL 25 MCG (1000 IU) TABLET PO SCH ×2 (08:42→21:00)
[2023-05-08] MEDS: SPIRONOLACTONE 25 MG TAB PO SCH ×2 (08:45→21:00)
[2023-05-08] MEDS: FUROSEMIDE 40 MG TAB PO SCH (08:45)
[2023-05-08] MEDS: BENZONATATE 100 MG CAP PO SCH ×3 (08:45→21:00)
[2023-05-08] MEDS: metFORMIN 500 MG TAB PO SCH ×2 (08:45→21:01)
[2023-05-08] MEDS: PANTOPRAZOLE 40 MG TABLET PO SCH (08:46)
[2023-05-08] MEDS: ATORVASTATIN 20 MG TAB PO SCH (08:53)
[2023-05-08 09:03] LABS: ALT 6 U/L (8-44); AST 11 U/L (13-35); Albumin 3.4 g/dL (3.8-4.9); Albumin/Globulin Ratio 1.26 Ratio (1.60-3.17); Alkaline Phosphatase 84 U/L (41-126); Blood Urea Nitrogen 30.4 mg/dL (9.0-27.0); Calcium 9.3 mg/dL (8.7-10.3); Carbon Dioxide 26.5 mmol/L (21.6-31.8); Chloride 102 mmol/L (96-109); Globulin 2.7 g/dL (1.6-3.3); Glucose 184 mg/dL (70-110); Sodium 140 mmol/L (135-145); Total Bilirubin 0.4 mg/dL (0.3-1.2); Total Protein 6.1 g/dL (6.2-8.2)
[2023-05-08] MEDS: DAPAGLIFLOZIN PROPANEDIOL 10 MG TABLET PO SCH (09:17)
[2023-05-08] MEDS: CEFDINIR 300 MG CAP PO SCH ×2 (09:17→21:00)
[2023-05-08 09:22] LABS: Basophils # (A) 0.04 X 10*3/uL (0.00-0.10); Basophils % (A) 0.4 %; Eosinophils # (A) 0.56 X 10*3/uL (0.04-0.35); Eosinophils % (A) 5.8 %; HCT 43.3 % (37.2-46.3); HGB 12.7 g/dL (12.0-15.0); Lymphocytes # (A) 1.04 X 10*3/uL (0.90-5.00); Lymphocytes % (A) 10.7 %; MCH 29.1 pg (27.0-32.0); MCHC 29.3 g/dL (32.0-37.0); MCV 99.1 FL (80.0-97.0); Monocytes # (A) 0.76 X 10*3/uL (0.20-1.00); Monocytes % (A) 7.8 %; NRBC Per 100 WBC 0 X 10*3/uL (0.00-0.01); Neutrophils # (A) 7.22 X 10*3/uL (1.80-7.70); Neutrophils % (A) 74.4 %; Platelet Count 249 X 10*3/uL (140-440); RBC 4.37 X 10*6/uL (4.10-5.20); RDW 15.1 % (11.5-14.5); WBC 9.71 X 10*3/uL (4.50-10.00)
--- NOTE | 2023-05-08 11:21 | XR ---
EXAMINATION TYPE: XR chest 1V portable DATE OF EXAM: 05/08/2023 HISTORY: Shortness of breath. COMPARISON: 05/05/2023 TECHNIQUE: Single view of the chest is submitted. FINDINGS: Demonstrated are scattered senescent parenchymal change. Persistent cardiomegaly with mild interstitial prominence which could be related to interstitial andrea a however interstitial pneumonia not excluded. Correlate clinically. Hilar and mediastinal structures are within normal limits. Degenerative changes are seen of the dorsal spine. IMPRESSION: 1. Persistent cardiomegaly with mild interstitial prominence which could be related to interstitial edema however interstitial pneumonia not excluded. Correlate clinically.
[2023-05-08 12:01] LABS: Glucose,Whole Blood 165 mg/dL (70-110)
--- NOTE | 2023-05-08 12:05 | P.GSCN ---
History of Present Illness Consult date: 05/08/23 Reason for Consult: Gross hematuria History of present illness: This is a 72-year-old female admitted to the hospital with acute respiratory fa ilure. Urology is consulted for gross hematuria. She is a known patient of Dr. Nicole she follow up with him for overactive bladder and history of recurrent kidney stones. She indicated he's been having intermittent gross hematuria. Denies any dysuria or difficulty voiding. Denies any flank pain. He did undergo a CT angiogram on presentation which partially evaluated both kidneys which showed significant bilateral stone burden. There is some dilation of the bilateral renal pelvises, but the kidney was not completely evaluated. She did undergo ureteroscopy in 2020 and had a cystoscopy at that time that showed no evidence of any pathology, she is also been set up for an outpatient cystoscopy with Botox. Review of Systems - Constitutional Denies chills, Denies fever - EENT Ears, nose, mouth and throat: Reports as per HPI - Cardiovascular Reports edema, Denies chest pain - Respiratory Reports dyspnea, Denies cough - Gastrointestinal Reports as per HPI - Genitourinary Genitourinary: Reports hematuria, Denies dysuria, Denies flank pain - Integumentary Denies rash, Denies unusual bruising - Neurological Denies headaches, Denies syncope Past Medical History Past Medical History: Diabetes Mellitus, Deep Vein Thrombosis (DVT), Eye Disorder, Osteoarthritis (OA), Pneumonia Additional Past Medical History / Comment(s): Seasonal allergies, recent congestions and also bladder infection, finishing po AB Rx. Macular degeneration, Rt eye worse. Edema in legs, hx water blisters, wears jobst stockings. kidney stones. Hx blood clot in leg History of Any Multi-Drug Resistant Organisms: None Reported Past Surgical History: Hysterectomy, Tubal Ligation Additional Past Surgical History / Comment(s): Multiple Kidney stone removals, LITHOTRIPSY. Blood clot removal left thigh, placed stent lt groin 2012 est. Past Anesthesia/Blood Transfusion Reactions: Previous Problems w/ Anesthesia Additional Past Anesthesia/Blood Transfusion Reaction / Comm: difficulty with breathing when waking up from previous kidney stone surgery x1 Past Psychological History: No Psychological Hx Reported Smoking Status: Former smoker Past Alcohol Use History: None Reported Additional Past Alcohol Use History / Comment(s): smoker for 6 years, 1 ppd, qu it 1999 est Past Drug Use History: None Reported - Past Family History Mother Family Medical History: Cancer Additional Family Medical History / Comment(s): colon cancer Father Family Medical History: Cancer Additional Family Medical History / Comment(s): lung cancer Sister(s) Family Medical History: Cancer Additional Family Medical History / Comment(s): breast cancer Brother(s) Family Medical History: Cancer, Pulmonary Embolus Daughter(s) Additional Family Medical History / Comment(s): daughter developed blood clot to shoulder and neck after IV PICC line insertion. granddaughter hx MTHFR with blood clot to groin Medications and Allergies Home Medications Medication Instructions Recorded Confirmed Type Acetaminophen [Tylenol 8 Hour] 650 mg PO Q8H PRN 12/01/18 04/24/23 History Albuterol Sulfate [Proair Hfa] 2 puff INHALATION RT-Q6H PRN 12/01/18 04/24/23 H istory Aspirin EC [Ecotrin Low Dose] 81 mg PO BID 12/01/18 04/24/23 History metFORMIN HCL [Glucophage] 500 mg PO BID 12/01/18 04/24/23 History Cholecalciferol [Vitamin D3 (25 25 mcg PO BID 04/24/23 04/24/23 History Mcg = 1000 Iu)] Tolterodine ER [Detrol LA] 4 mg PO HS 04/24/23 04/24/23 History traMADol HCl [Ultram] 50 mg PO TID PRN 04/24/23 04/24/23 History Allergies Allergy/AdvReac Type Severity Reaction Status Date / Time amoxicillin Allergy Rash/Hives Verified 04/24/23 18:42 dill weed Allergy Rash/Hives Uncoded 04/24/23 15:42 Surgical - Exam Vital Signs Temp Pulse Resp BP Pulse Ox 98.4 F 100 20 135/76 93 L 04/24/23 15:27 04/24/23 15:27 04/24/23 15:27 04/24/23 15:27 04/24/23 15:27 - General no distress, no pain - Eyes normal ocular movement, no pale - ENT normal nares, normal mucosa - Respiratory normal expansion, normal respiratory effort - Abdomen Abdomen: soft, non tender - Psychiatric oriented to time, oriented to person, oriented to place Results - Labs 05/08/23 06:00 05/08/23 06:00 Abnormal Lab Results - Last 24 Hours (Table) 05/07/23 05/07/23 05/07/23 Range/Units 12:00 17:20 20:14 MCV (80.0-97.0) FL MCHC (32.0-37.0) g/dL RDW (11.5-14.5) % Immature Gran # (0.00-0.04) X 10*3/uL Eosinophils # (0.04-0.35) X 10*3/uL BUN (9.0-27.0) mg/dL BUN/Creatinine Ratio (12.00-20.00) Ratio Glucose (70-110) mg/dL POC Glucose (mg/dL) 156 H 181 H 233 H (70-110) mg/dL AST (13-35) U/L ALT (8-44) U/L Total Protein (6.2-8.2) g/dL Albumin (3.8-4.9) g/dL Albumin/Globulin Ratio (1.60-3.17) Ratio 05/08/23 05/08/23 05/08/23 Range/Units 06:00 06:00 07:44 MCV 99.1 H (80.0-97.0) FL MCHC 29.3 L (32.0-37.0) g/dL RDW 15.1 H (11.5-14.5) % Immature Gran # 0.09 H (0.00-0.04) X 10*3/uL Eosinophils # 0.56 H (0.04-0.35) X 10*3/uL BUN 30.4 H (9.0-27.0) mg/dL BUN/Creatinine Ratio 38.00 H (12.00-20.00) Ratio Glucose 184 H (70-110) mg/dL POC Glucose (mg/dL) 163 H (70-110) mg/dL AST 11 L (13-35) U/L ALT 6 L (8-44) U/L Total Protein 6.1 L (6.2-8.2) g/dL Albumin 3.4 L (3.8-4.9) g/dL Albumin/Globulin Ratio 1.26 L (1.60-3.17) Ratio Microbiology - Last 24 Hours (Table) 05/06/23 17:35 Urine Culture - Preliminary Urine,Voided Gram Neg Bacilli Diabetes panel 05/08/23 Range/Units 06:00 Sodium 140 (135-145) mmol/L Potassium 4.0 (3.5-5.5) mmol/L Chloride 102 (96-109) mmol/L Carbon Dioxide 26.5 (21.6-31.8) mmol/L BUN 30.4 H (9.0-27.0) mg/dL Creatinine 0.8 (0.6-1.5) mg/dL Glucose 184 H (70-110) mg/dL Calcium 9.3 (8.7-10.3) mg/dL AST 11 L (13-35) U/L ALT 6 L (8-44) U/L Alkaline Phosphatase 84 (41-126) U/L Total Protein 6.1 L (6.2-8.2) g/dL Albumin 3.4 L (3.8-4.9) g/dL Calcium panel 05/08/23 Range/Units 06:00 Calcium 9.3 (8.7-10.3) mg/dL Albumin 3.4 L (3.8-4.9) g/dL Pituitary panel 05/08/23 Range/Units 06:00 Sodium 140 (135-145) mmol/L Potassium 4.0 (3.5-5.5) mmol/L Chloride 102 (96-109) mmol/L Carbon Dioxide 26.5 (21.6-31.8) mmol/L BUN 30.4 H (9.0-27.0) mg/dL Creatinine 0.8 (0.6-1.5) mg/dL Glucose 184 H (70-110) mg/dL Calcium 9.3 (8.7-10.3) mg/dL Adrenal panel 05/08/23 Range/Units 06:00 Sodium 140 (135-145) mmol/L Potassium 4.0 (3.5-5.5) mmol/L Chloride 102 (96-109) mmol/L Carbon Dioxide 26.5 (21.6-31.8) mmol/L BUN 30.4 H (9.0-27.0) mg/dL Creatinine 0.8 (0.6-1.5) mg/dL Glucose 184 H (70-110) mg/dL Calcium 9.3 (8.7-10.3) mg/dL Total Bilirubin 0.4 (0.3-1.2) mg/dL AST 11 L (13-35) U/L ALT 6 L (8-44) U/L Alkaline Phosphatase 84 (41-126) U/L Total Protein 6.1 L (6.2-8.2) g/dL Albumin 3.4 L (3.8-4.9) g/dL Assessment and Plan Assessment: 72-year-old female history of gross hematuria. Had a negative cystoscopy in 2020 and there is a plan to set her up for outpatient cystoscopy and botox with Dr. Nicole. CT angiogram showed evidence of bilateral renal stones within the kidney, but kidney was not completely evaluated. Her gross hematuria is most likely secondary to her significant bilateral stone burden. But will plan on obtaining a CT abdomen and pelvis to further evaluate given the gross hematuria and stones. -Keep f/u for outpatient cystoscopy and botox with Dr Nicole -CT Urogram
--- NOTE | 2023-05-08 12:11 | P.PN ---
Subjective Progress Note Date: 05/08/23 72-year-old female seen in the emergency department, room 15. She's here with her . She apparently presented to the emergency department, on April 24, with multiple complaints including leg swelling, shortness of breath, cough, and generally just not feeling well. She also has some tingling to her hands bilaterally, and apparently has been seen by one of the hand surgeons. The patient is laying flat in bed. She is on a couple liters of oxygen. She's not receiving any IV fluids. She tells me that she has cellulitis of the lower extremities. She is a rather large woman. She also tells me that her only major medical problem is diabetes mellitus. Although, she apparently has a hist ory of DVT, osteoarthritis, and pneumonia. She also has a previous history of kidney stones, status post lithotripsy. Current labs include a white count 6.6, hemoglobin 12.9, hematocrit 42.6, and a platelet count of 101,000. D-dimer is 2.31. Venous blood gases showed CO2 49 and a pH is 7.36. Sodium 140, potassium 4.7, chlorides 105, CO2 25, BUN 22, creatinine 0.69. The N-terminal proBNP is e levated at 5250. Troponins were negative 2. Urine showed 2+ protein and moderate blood and large leukocyte esterase, 93 RBCs 74 WBCs, rare bacteria, and occasional mucus. Testing for coronavirus was negative. Chest x-ray showed changes consistent with pulmonary edema/fluid overload. CT angiogram was negative for pulmonary embolism. Doppler of the lower semis was negative for DVT. Progress note dated 04/26/2023. 72-year-old obese female seen yesterday in the emergency department. Today, she is seen in room 368. The patient's currently on 3 L of oxygen. She is receiving Lasix and her fluid overload, and Ancef, for her lower extremity edema. Her lower extremity edema is a bit better today. She does feel a bit better today, less short of breath. Current laboratory data includes a glucose of 181. Testing for harper virus was negative. Troponin was less than 0.012, 2. Progress note dated 04/27/2023. 73-year-old female initially seen in the emergency department, but is seen in room 368 today. She continues on oxygen at 3 L. No IV fluids. For her cough, we ordered some Tessalon Perles. In addition, she continues on Ancef for her bilateral lower extremity cellulitis. Also, she is receiving diuretics, for her pulmonary edema. Today's laboratory data includes a glucose of 137. Testing for harper virus was negative. Blood cultures are negative. On today's evaluation of 04/28/2023, I'm seeing the patient for a follow-up. She is on 10 L of oxygen by nasal cannula. She is in for increased lower extremity edema, hypoxic respiratory failure, lower extremity infection. The patient has some mild cardiomegaly on her CT angiogram. No evidence of any pulmonary embolism. Her echocardiogram showed LV function with ejection fraction of 50-55%. She has severe RV dilatation and severe pulmonary hypertension and she may have an underlying obstructive sleep apnea. No recent CBC, most recent electrolytes show a BUN of 34 with a creatinine 1.1 and sodium level is at 138. She is currently on oxygen at 10 L she is on IV cefazolin. She is also on oral Lasix 40 mg by mouth daily. She remains on bronchodilators with albuterol HFA, IV Solu-Medrol 20 mg every 8 hours and Lovenox 40 mg subcu portably prophylaxis. On 04/29/2023, the patient is sitting up in a recliner. Doing well. She is down to 6 L of oxygen nasal cannula. She is still on Lasix. She is in a negative fluid balance. Labs from today are still pending. No other significant events overnight. No angina. No palpitations. No chest pain. Remains on albuterol HFA, IV Solu-Medrol 20 mg every 8 hours then Lovenox 40 mg subcu for DVT prophylaxis. On 04/30/2023, the patient is being seen for a follow-up. Doing well. No new complaints. The patient has been weaned down to 5 L of oxygen by nasal cannula with a pulse ox of 95%. The patient is diuresing adequately and the patient is a negative fluid balance of at least 2 L over the past 24 hours. The patient is currently on Lasix 40 mg by mouth daily. The patient is still on IV cefazolin regarding lower extremity cellulitis. Edema still present in the legs bilaterally. Blood work from today shows a BUN of 44 with a creatinine of 0.7. Sodium level is at 138. The risks count of 9.3 with a hemoglobin 15.1 and a platelet count of 243. No chest pain. No interval worsening shortness of breath. On 05/01/2023, the patient has been weaned down to 5 L. Her current pulse ox is 93%. She is making excellent urine output. Overall fluid balance is -2 L over the past 24 hours. She remains on Lasix 40 mg by mouth and the dose was increased up to twice a day. She remains on IV cefazolin. Lower extremity cellulitis is also improving. Mentally she is awake and alert and communicating. She is trying to increase her mobility. She is working with physical therapy. Blood work shows a sodium level of 141, BUN is 34 with a creatinine of 0.6. LFTs are normal. The viscosity 0.8 with a hemoglobin 15.4 and a platelet count of 178. on today's evaluation of 05/02/2023, the patient is still on 5 L of O2 nasal cannula. She is producing excellent urine output. There is significant improvement in lower extremity edema and the wound over the right lower extremity so is essentially eating at this point in time. There is no active drainage. The wound is very healthy-looking. Edema lower extremity is also improving. Meanwhile, the patient remains on oral Lasix. Fluid balance is negative at least 2 L over the past 24 hours.White cell count of 8.2 with a hemoglobin of 13.4 and a platelet count of 181. BUN is at 28 with a creatinine of 0.6 and a sodium level is at 140. Potassium levels at 4.0. The patient re atif on IV cefazolin. The patient is on Lasix 40 mg by mouth twice a day. Rest of the medications remain unchanged. The patient and KVO. We will balance is -2.3 L over the past 24 hours. On 05/03/2023, no new complaints. The patient is sitting up on a chair. She is currently on room air oxygen. Oxygen saturation is improved. The patient was transferred to the [facility]. The fluid balance is negative at least 2.3 L. The labs are all stable, the viscosity 11.1, he was 13.8, serum bicarbonate is 41, BUN is 28 with a creatinine of 0.66 05/04/2023, condition is stable. Still on 5 L of O2 nasal cannula. She patient continues to the stable and saturations improved. We should be able to wean down FiO2. No new complaints otherwise for now. The patient is seen today 05/05/2023 in follow-up on the regular medical floor. She is currently resting in bed. Awake and alert in no acute distress. She denies any worsening shortness of breath, cough or congestion. He is maintainin g O2 saturation in the 90s on 3 L/m per nasal cannula. She's afebrile. Hemodynamically stable. Blood cultures revealed no growth. White count 12.2. Hemoglobin 13.5. Platelets 232. Sodium 138. Potassium 3.7. Bicarb 25. BUN 29. Creatinine 0.83. Glucose 173. She is continued on DuoNeb inhalations. Remains on antibiotics in the form of cefazolin. Continued on oral diuretics. Currently in a negative balance. The patient is seen today 05/06/2023 in follow-up on the regular medical floor. She is currently laying flat in bed. Awake and alert in no acute distress. Denies any worsening shortness of breath. She continues with a dry nonproductive cough. She is maintaining good O2 saturations in the 90s on 4 L/m per nasal cannula. She's afebrile. Hemodynamically stable. Follow-up chest x- ray shows mild cardiomegaly and ongoing interstitial densities. Mild pulmonary vascular congestion. Patchy density in the right midlung. I count 10.4. Hemoglobin 12.9. Platelets 218. Glucose 159. She continues on bronchodilators. Oral diuretics. Lovenox for DVT prophylaxis. Remains on cefazolin per ID services. The patient is seen today 05/07/2023 in follow-up on the regular medical floor. She is sitting up in bed. Awake and alert. Having breakfast. Denies any worsening shortness of breath, cough or congestion. Maintaining O2 saturations in the 90s on 4 L/m per nasal cannula. She's been afebrile. Hemodynamically stable. Glucose 156. She remains on Diamox, Lasix, Aldactone. Continued on bronchodilators, Tessalon Perles. Lovenox for DVT prophylaxis. Antibiotics in the form of Omnicef. The patient is seen today 05/08/2023 in follow-up on the regular medical floor. She remains awake and alert in no acute distress. Continues with a cough with occasional yellow phlegm. No fever chills. No chest pain. Pro-calcitonin was 0.10. She continues to maintain good O2 saturations in the 90s on 4 L/m per nasal cannula. She's been afebrile. Hemodynamically stable. During culture positive for gram-negative bacilli. Blood cultures revealed no growth. Follow- up chest x-ray today continues to show evidence of fluid volume overload. Count 9.7. Hemoglobin 12.7. Platelets 249. Sodium 140. Potassium 4.0. Bicarb 27. BUN 30. Creatinine 0.8. Glucose 184. AST 11. ALT 6. He is continued on DuoNeb inhalations, Tessalon Perles, antibiotics in the form of Omnicef. She is on Lasix 40 mg by mouth twice a day long with Aldactone 25 mg daily Objective - Vital Signs Vital signs: Vital Signs Temp 97.6 F 05/08/23 07:40 Pulse 80 05/08/23 11:45 Resp 16 05/08/23 07:40 BP 129/84 05/08/23 07:40 Pulse Ox 94 L 05/08/23 11:33 FiO2 Intake & Output 05/07/23 05/08/23 05/08/23 18:59 06:59 18:59 Output Total 600 1300 Balance -600 -1300 Output: Urine 600 1300 Other: Voiding Method Diaper Diaper Incontinent Incontinent External Catheter External Catheter - Exam GENERAL EXAM: Alert, morbidly obese 72-year-old female, resting in bed, on 4 L nasal cannula, comfortable in no apparent distress. HEAD: Normocephalic. EYES: Normal reaction of pupils, equal size. NOSE: Clear with pink turbinates. THROAT: No erythema or exudates. NECK: No masses, no JVD. CHEST: No chest wall deformity. LUNGS: Equal air entry with few scattered rhonchi, crackles in the posterior bases. CVS: S1 and S2 normal with no audible murmur, regular rhythm. ABDOMEN: Obese, normal bowel sounds, no guarding or rigidity. SPINE: No scoliosis or deformity SKIN: His of chronic venous stasis of the bilateral lower extremities with cellulitis. CENTRAL NERVOUS SYSTEM: No focal deficits, tone is normal in all 4 extremities. EXTREMITIES: Cellulitis of the bilateral lower extremities, Matthias wraps in place. No clubbing, no cyanosis. Peripheral pulses are intact. - Labs CBC & Chem 7: 12/14/23 06:00 05/08/23 06:00 Labs: Abnormal Lab Results - Last 24 Hours (Table) 05/07/23 05/07/23 05/07/23 Range/Units 12:00 17:20 20:14 MCV (80.0-97.0) FL MCHC (32.0-37.0) g/dL RDW (11.5-14.5) % Immature Gran # (0.00-0.04) X 10*3/uL Eosinophils # (0.04-0.35) X 10*3/uL BUN (9.0-27.0) mg/dL BUN/Creatinine Ratio (12.00-20.00) Ratio Glucose (70-110) mg/dL POC Glucose (mg/dL) 156 H 181 H 233 H (70-110) mg/dL AST (13-35) U/L ALT (8-44) U/L Total Protein (6.2-8.2) g/dL Albumin (3.8-4.9) g/dL Albumin/Globulin Ratio (1.60-3.17) Ratio 05/08/23 05/08/23 05/08/23 Range/Units 06:00 06:00 07:44 MCV 99.1 H (80.0-97.0) FL MCHC 29.3 L (32.0-37.0) g/dL RDW 15.1 H (11.5-14.5) % Immature Gran # 0.09 H (0.00-0.04) X 10*3/uL Eosinophils # 0.56 H (0.04-0.35) X 10*3/uL BUN 30.4 H (9.0-27.0) mg/dL BUN/Creatinine Ratio 38.00 H (12.00-20.00) Ratio Glucose 184 H (70-110) mg/dL POC Glucose (mg/dL) 163 H (70-110) mg/dL AST 11 L (13-35) U/L ALT 6 L (8-44) U/L Total Protein 6.1 L (6.2-8.2) g/dL Albumin 3.4 L (3.8-4.9) g/dL Albumin/Globulin Ratio 1.26 L (1.60-3.17) Ratio Microbiology - Last 24 Hours (Table) 05/06/23 17:35 Urine Culture - Preliminary Urine,Voided Gram Neg Bacilli Assessment and Plan Assessment: Acute hypoxic respiratory failure, currently on 4 L of oxygen by nasal cannula. Shortness of breath is multifactorial. There is an obvious component of CHF with preserved LV function and severe right-sided heart failure with RV dysfunction and fluid overload. Follow-up chest x-ray today continues to show recurrence of fluid volume overload and interstitial edema. Right ventricular failure with severe pulmonary hypertension. Shortness of breath, consistent with fluid overload, given the x-ray changes, lower extremity edema, and elevated BNP. Probable cellulitis, bilateral lower extremities. The patient remains on Omnicef, so wound shows significant improvement. No evidence of pulmonary embolism or DVT. Urinary tract infection secondary to gram-negative bacilli. Morbid obesity. History of diabetes mellitus. History of vitamin D deficiency. Prior history of DVT. History of osteoarthritis. History of pneumonia. History of kidney stones with intermittent gross hematuria Stress urinary incontinence. Plan: The patient was seen and evaluated Chest x-ray, labs and medications reviewed BNP ordered Discontinue oral Lasix Initiate Lasix 40 mg IV every 8 hours Increase Aldactone to 25 mg twice daily Antibiotics per ID service Increase the use of the incentive spirometer Increase her activity as tolerated Titrate down the FiO2 as tolerated Urology consult regarding hematuria This patient was seen independently by the nurse practitioner who performed the medical decision making I have personally seen and examined the patient, performed the documentation and the assessment and plan as written. Number of minutes spent on the visit: 25.
[2023-05-08] MEDS: FUROSEMIDE 10 MG/ML 4 ML VIAL IV SCH ×2 (13:53→21:01)
--- NOTE | 2023-05-08 14:39 | P.CONS ---
History of Present Illness - Reason for Consult Consult date: 05/08/23 - History of Present Illness This patient is a 72-year-old female with PMH of DVT, osteoarthritis she came in for worsening swelling in legs and SOB. Per EMR review: Chest x-ray completed showing marked interstitial phase pulmonary edema presumably cardiogenic etiology. Lab work revealing elevated d-dimer 2.31. CT of the chest performed showing trace pericardial effusion, scattered reticular infiltrates in the right upper lobe and both lung bases consider viral or interstitial pneumonia. Pulmonary arterial tree is adequately opacified with contrast no large central emboli are visible there is under opacification of a small segmental branch in the left lower lobe laterally no discrete thrombus is visible. Troponins negative. BNP elevated at 5250. She completed course IV abx, EF was normal 50-55%. SHe was diuresed. Still endorsing cough. At home she lives with her . He was helping her physically for the last few weeks including helping her with a "transport chair" in the house. She reports prior to the last few weeks she did not use any AD. She has been to [facility] in the past in 1999 when she diagnosed with DVT. She endorses cough and SOB. No c/p. 05/08/23: PT: Pt. able to maintain sitting balance without assist. Pt. ambulated with short step gait with rolling walker. Pt. required min assist to move walker on turn. Pt. reported increased LE fatigue, R knee pain requiring to sit down after 30 feet ambulation. Pt. declined to attempt further activity. Review of Systems 10 point ROS and negative unless per HPI Past Medical History Past Medical History: Diabetes Mellitus, Deep Vein Thrombosis (DVT), Eye Disorder, Osteoarthritis (OA), Pneumonia Additional Past Medical History / Comment(s): Seasonal allergies, recent congestions and also bladder infection, finishing po AB Rx. Macular degeneration, Rt eye worse. Edema in legs, hx water blisters, wears jobst stockings. kidney stones. Hx blood clot in leg History of Any Multi-Drug Resistant Organisms: None Reported Past Surgical History: Hysterectomy, Tubal Ligation Additional Past Surgical History / Comment(s): Multiple Kidney stone removals, LITHOTRIPSY. Blood clot removal left thigh, placed stent lt groin 2011 est. Past Anesthesia/Blood Transfusion Reactions: Previous Problems w/ Anesthesia Additional Past Anesthesia/Blood Transfusion Reaction / Comm: difficulty with breathing when waking up from previous kidney stone surgery x1 Past Psychological History: No Psychological Hx Reported Smoking Status: Former smoker Past Alcohol Use History: None Reported Additional Past Alcohol Use History / Comment(s): smoker for 6 years, 1 ppd, quit 1999 est Past Drug Use History: None Reported - Past Family History Mother Family Medical History: Cancer Additional Family Medical History / Comment(s): colon cancer Father Family Medical History: Cancer Additional Family Medical History / Comment(s): lung cancer Sister(s) Family Medical History: Cancer Additional Family Medical History / Comment(s): breast cancer Brother(s) Family Medical History: Cancer, Pulmonary Embolus Daughter(s) Additional Family Medical History / Comment(s): daughter developed blood clot to shoulder and neck after IV PICC line insertion. granddaughter hx MTHFR with blood clot to groin Medications and Allergies Home Medications Medication Instructions Recorded Confirmed Type Acetaminophen [Tylenol 8 Hour] 650 mg PO Q8H PRN 12/01/18 04/24/23 History Albuterol Sulfate [Proair Hfa] 2 puff INHALATION RT-Q6H PRN 12/01/18 04/24/23 History Aspirin EC [Ecotrin Low Dose] 81 mg PO BID 12/01/18 04/24/23 History metFORMIN HCL [Glucophage] 500 mg PO BID 12/01/18 04/24/23 History Cholecalciferol [Vitamin D3 (25 25 mcg PO BID 04/24/23 04/24/23 History Mcg = 1000 Iu)] Tolterodine ER [Detrol LA] 4 mg PO HS 04/24/23 04/24/23 History traMADol HCl [Ultram] 50 mg PO TID PRN 04/24/23 04/24/23 History Allergies Allergy/AdvReac Type Severity Reaction Status Date / Time amoxicillin Allergy Rash/Hives Verified 04/24/23 18:42 dill weed Allergy Rash/Hives Uncoded 04/24/23 15:42 Physical Exam Vitals: Vital Signs Temp Pulse Pulse Resp BP BP Pulse Ox 05/08/23 11:55 97.8 F 83 20 115/71 92 L 05/08/23 11:45 80 05/08/23 11:33 76 94 L 05/08/23 07:40 97.6 F 83 16 129/84 93 L 05/08/23 02:00 97.7 F 89 20 143/81 93 L 05/07/23 20:33 92 05/07/23 20:22 92 05/07/23 20:10 20 05/07/23 19:22 97.4 F L 86 20 136/74 92 L 05/07/23 15:31 78 05/07/23 15:19 74 05/07/23 14:56 97.9 F 80 17 109/64 94 L Intake and Output 05/07/23 05/08/23 05/08/23 22:59 06:59 14:59 Output Total 1300 600 Balance -1300 -600 Output: Urine 1300 600 Other: Voiding Method Diaper Incontinent External Catheter - Constitutional NAD General appearance: obese - EENT Eyes: PERRLA, normal appearance ENT: hearing grossly normal - Respiratory on nasal cannula - Gastrointestinal non distended General gastrointestinal: soft - Integumentary lower extremity dressings dry and clean Integumentary: cellulitis - Neurologic Neurologic: CNII-XII intact - Musculoskeletal Musculoskeletal: generalized weakness - Psychiatric Psychiatric: A&O x's 3, appropriate affect Results CBC & Chem 7: 05/08/23 06:00 05/08/23 06:00 Labs: Abnormal Lab Results - Last 24 Hours (Table) 05/07/23 05/07/23 05/08/23 Range/Units 17:20 20:14 06:00 MCV 99.1 H (80.0-97.0) FL MCHC 29.3 L (32.0-37.0) g/dL RDW 15.1 H (11.5-14.5) % Immature Gran # 0.09 H (0.00-0.04) X 10*3/uL Eosinophils # 0.56 H (0.04-0.35) X 10*3/uL BUN (9.0-27.0) mg/dL BUN/Creatinine Ratio (12.00-20.00) Ratio Glucose (70-110) mg/dL POC Glucose (mg/dL) 181 H 233 H (70-110) mg/dL AST (13-35) U/L ALT (8-44) U/L Total Protein (6.2-8.2) g/dL Albumin (3.8-4.9) g/dL Albumin/Globulin Ratio (1.60-3.17) Ratio 05/08/23 05/08/23 05/08/23 Range/Units 06:00 07:44 11:59 MCV (80.0-97.0) FL MCHC (32.0-37.0) g/dL RDW (11.5-14.5) % Immature Gran # (0.00-0.04) X 10*3/uL Eosinophils # (0.04-0.35) X 10*3/uL BUN 30.4 H (9.0-27.0) mg/dL BUN/Creatinine Ratio 38.00 H (12.00-20.00) Ratio Glucose 184 H (70-110) mg/dL POC Glucose (mg/dL) 163 H 165 H (70-110) mg/dL AST 11 L (13-35) U/L ALT 6 L (8-44) U/L Total Protein 6.1 L (6.2-8.2) g/dL Albumin 3.4 L (3.8-4.9) g/dL Albumin/Globulin Ratio 1.26 L (1.60-3.17) Ratio Microbiology - Last 24 Hours (Table) 05/06/23 20:00 Gram Stain - Preliminary Sputum Sputum Culture - Preliminary Gram Neg Bacilli 05/06/23 17:35 Urine Culture - Preliminary Urine,Voided Gram Neg Bacilli Assessment and Plan Assessment: #Debility #CHF exacerbation, normal EF 50-55% #Lower extremity cellulitis #History of DVT #History of pneumonia #Macular degeneration Recs: Continue with PT/OT while in hospital as tolerated. Patient refusing IPR/CHRIS options and would like to go home with C. Patient counseled on risk of falling at home and increased risk for morbidity/mortality if that happens. She has been ambulating 30 feet with some assistance and min assist for bed mobility. She believes she is close to baseline function. HHC per patient's request.
[2023-05-08 17:26] LABS: Glucose,Whole Blood 173 mg/dL (70-110)
[2023-05-08 20:20] LABS: Glucose,Whole Blood 235 mg/dL (70-110)
[2023-05-08] MEDS: OXYBUTYNIN 10 MG TAB.ER.24 PO SCH (21:00)
[2023-05-09] MEDS: FUROSEMIDE 10 MG/ML 4 ML VIAL IV SCH ×3 (03:41→20:18)
[2023-05-09 07:01] LABS: Glucose,Whole Blood 177 mg/dL (70-110)
[2023-05-09] MEDS: IPRATROPIUM-ALBUTEROL 3 ML NEB INHALATION SCH ×4 (07:25→19:51)
--- NOTE | 2023-05-09 07:46 | XR ---
EXAMINATION TYPE: XR knee complete RT DATE OF EXAM: 05/08/2023 3:53 PM CLINICAL INDICATION:Female, 72 years old with history of rt knee pain; [facility] COMPARISON: None. TECHNIQUE: XR knee complete RT; examined in Frontal, lateral and oblique projections. FINDINGS: No evidence of any acute osseous pathology, soft tissue swelling, or joint effusion is no frankie. Tricompartmental osteophyte formation involving the femoral condyles, tibial plateau and patella. Mo derate joint space narrowing. Atherosclerosis of the arterial vasculature. IMPRESSION: 1. No acute osseous pathology. 2. Moderate tricompartmental osteoarthritic changes.
--- NOTE | 2023-05-09 08:14 | XR ---
EXAMINATION TYPE: XR chest 1V portable DATE OF EXAM: 05/09/2023 8:08 AM CLINICAL INDICATION:Female, 72 years old with history of chf; H COMPARISON: Chest radiographs from 05/08/2023 TECHNIQUE: XR chest 1V portable Frontal view of the chest. FINDINGS: Lungs/Pleura: There is no evidence of pleural effusion, focal consolidation, or pneumothorax. Pulmonary vascularity: Pulmonary vascular congestion. Heart/mediastinum: Cardiomediastinal silhouette is prominent in size. Musculoskeletal: No acute osseous pathology. Other findings: None IMPRESSION: Similar, Cardiomegaly and mild pulmonary vascular congestion. Correlate with BNP for congestive heart failure.
[2023-05-09] MEDS: INSULIN ASPART (NovoLOG) 100 UNIT/ML VIAL SQ SCH ×4 (08:25→20:35)
--- NOTE | 2023-05-09 08:25 | P.CNOR ---
History of Present Illness - [facility] Consult date: 05/09/23 Consult reason: joint pain (Right knee pain) History of present illness: Patient is a 72-year-old female who has been admitted at [facility] since 04/24/2023 with multiple medical comorbidities. During her hospital stay she has complained of right knee pain, our orthopedic team was consulted. Patient is known to our orthopedic practice, she does see Dr. Britt in the outpatient setting for her right knee. She has a history of known osteoarthritis. Patient has received occasional cortisone shots and Visco supplementation for her symptoms. Patient denies any new trauma to the knee, she states that the knee has given out on her a few times when ambulating with her walker since being in the hospital. Patient has a lot of medical comorbidities and makes her high risk for surgery, we have continued with conservative management with her in the outpatient setting. Patient has no other orthopedic complaints at this time. Review of Systems Constitutional: Reports as per HPI Past Medical History Past Medical History: Diabetes Mellitus, Deep Vein Thrombosis (DVT), Eye Disorder, Osteoarthritis (OA), Pneumonia Additional Past Medical History / Comment(s): Seasonal allergies, recent congestions and also bladder infection, finishing po AB Rx. Macular degeneration, Rt eye worse. Edema in legs, hx water blisters, wears jobst stockings. kidney stones. Hx blood clot in leg History of Any Multi-Drug Resistant Organisms: None Reported Past Surgical History: Hysterectomy, Tubal Ligation Additional Past Surgical History / Comment(s): Multiple Kidney stone removals, LITHOTRIPSY. Blood clot removal left thigh, placed stent lt groin 2011 est. Past Anesthesia/Blood Transfusion Reactions: Previous Problems w/ Anesthesia Additional Past Anesthesia/Blood Transfusion Reaction / Comm: difficulty with breathing when waking up from previous kidney stone surgery x1 Past Psychological History: No Psychological Hx Reported Smoking Status: Former smoker Past Alcohol Use History: None Reported Additional Past Alcohol Use History / Comment(s): smoker for 6 years, 1 ppd, quit 1999 est Past Drug Use History: None Reported - Past Family History Mother Family Medical History: Cancer Additional Family Medical History / Comment(s): colon cancer Father Family Medical History: Cancer Additional Family Medical History / Comment(s): lung cancer Sister(s) Family Medical History: Cancer Additional Family Medical History / Comment(s): breast cancer Brother(s) Family Medical History: Cancer, Pulmonary Embolus Daughter(s) Additional Family Medical History / Comment(s): daughter developed blood clot to shoulder and neck after IV PICC line insertion. granddaughter hx MTHFR with blood clot to groin Medications and Allergies Home Medications Medication Instructions Recorded Confirmed Type Acetaminophen [Tylenol 8 Hour] 650 mg PO Q8H PRN 12/01/18 04/24/23 History Albuterol Sulfate [Proair Hfa] 2 puff INHALATION RT-Q6H PRN 12/01/18 04/24/23 History Aspirin EC [Ecotrin Low Dose] 81 mg PO BID 12/01/18 04/24/23 History metFORMIN HCL [Glucophage] 500 mg PO BID 12/01/18 04/24/23 History Cholecalciferol [Vitamin D3 (25 25 mcg PO BID 04/24/23 04/24/23 History Mcg = 1000 Iu)] Tolterodine ER [Detrol LA] 4 mg PO HS 04/24/23 04/24/23 History traMADol HCl [Ultram] 50 mg PO TID PRN 04/24/23 04/24/23 History Allergies Allergy/AdvReac Type Severity Reaction Status Date / Time amoxicillin Allergy Rash/Hives Verified 04/24/23 18:42 dill weed Allergy Rash/Hives Uncoded 04/24/23 15:42 Physical Examination Right lower extremity: Matthias bandages present from just below the knee joint to the lower leg, patient states that she still with cellulitis since being in the hospital. There is no erythema surrounding the right knee, there is no obvious joint effusion present, there are no open lesion surrounding the knee Passive active range of motion reproduces no acute pain. She does demonstrate tenderness with palpation to the medial side of the joint. Crepitance is appreciated over the patellofemoral joint with range of motion. The knee is stable to both varus and valgus force Plantar flexion, dorsiflexion, EHL, FHL are intact Her sensory exam to light touch is intact throughout the extremity Skin is warm to touch Logroll maneuver reproduces no groin pain Results - Labs Labs: Abnormal Lab Results - Last 24 Hours (Table) 05/08/23 05/08/23 05/08/23 Range/Units 06:00 06:00 11:59 MCV 99.1 H (80.0-97.0) FL MCHC 29.3 L (32.0-37.0) g/dL RDW 15.1 H (11.5-14.5) % Immature Gran # 0.09 H (0.00-0.04) X 10*3/uL Eosinophils # 0.56 H (0.04-0.35) X 10*3/uL BUN 30.4 H (9.0-27.0) mg/dL BUN/Creatinine Ratio 38.00 H (12.00-20.00) Ratio Glucose 184 H (70-110) mg/dL POC Glucose (mg/dL) 165 H (70-110) mg/dL AST 11 L (13-35) U/L ALT 6 L (8-44) U/L Total Protein 6.1 L (6.2-8.2) g/dL Albumin 3.4 L (3.8-4.9) g/dL Albumin/Globulin Ratio 1.26 L (1.60-3.17) Ratio 05/08/23 05/08/23 05/09/23 Range/Units 17:24 20:17 07:00 MCV (80.0-97.0) FL MCHC (32.0-37.0) g/dL RDW (11.5-14.5) % Immature Gran # (0.00-0.04) X 10*3/uL Eosinophils # (0.04-0.35) X 10*3/uL BUN (9.0-27.0) mg/dL BUN/Creatinine Ratio (12.00-20.00) Ratio Glucose (70-110) mg/dL POC Glucose (mg/dL) 173 H 235 H 177 H (70-110) mg/dL AST (13-35) U/L ALT (8-44) U/L Total Protein (6.2-8.2) g/dL Albumin (3.8-4.9) g/dL Albumin/Globulin Ratio (1.60-3.17) Ratio Microbiology - Last 24 Hours (Table) 05/06/23 20:00 Gram Stain - Preliminary Sputum Sputum Culture - Preliminary Gram Neg Bacilli 05/06/23 17:35 Urine Culture - Preliminary Urine,Voided Gram Neg Bacilli H & H 04/24/23 04/26/23 04/28/23 Range/Units 16:57 10:57 08:41 Hgb 12.9 12.7 13.4 (11.4-16.0) gm/dL Hct 42.6 42.4 45.4 (34.0-46.0) % 04/29/23 04/30/23 05/01/23 Range/Units 09:26 09:39 09:24 Hgb 13.1 13.1 13.4 (11.4-16.0) gm/dL Hct 45.7 43.2 46.5 H (34.0-46.0) % 05/02/23 05/03/23 05/05/23 Range/Units 08:06 04:42 06:23 Hgb 13.4 13.8 13.5 (11.4-16.0) gm/dL Hct 45.0 46.1 H 46.0 (34.0-46.0) % 05/06/23 05/08/23 Range/Units 06:17 06:00 Hgb 12.9 12.7 (11.4-16.0) gm/dL Hct 43.6 43.3 (34.0-46.0) % Coagulation 04/24/23 Range/Units 18:29 INR 1.0 (<1.2) Result Diagrams: 05/08/23 06:00 05/08/23 06:00 - Diagnostic results Knee x-ray: report reviewed, image reviewed (X-rays were reviewed of the right knee from 05/08/2023 obtained to [facility]. Images demonstrate no acute fractures or dislocations. Severe medial joint osteoarthritis is noted with joint space narrowing and subchondral sclerosis) Assessment and Plan Assessment: Right knee pain Right knee osteoarthritis Multiple medical comorbidities Plan: I was able to discuss the case, this including physical exam findings and imaging studies my attending Dr. Britt. No emergent orthopedic surgical intervention recommended at this time Recommend conservative measures, this did include the use of Tylenol, NSAIDs or even pain medication. Ice and elevating techniques were also discussed With patient's current medical state and cellulitis to the right lower extremity we are not recommending any steroid injection at this time. The hope is patient improves with her overall medical state and she can see Dr. Britt in the outpatient setting for a cortisone injection in the next month or so. Patient remained stable via the orthopedic standpoint for discharge Please contact our service regarding any other questions for this patient Time with Patient: Less than 30
[2023-05-09] MEDS: PANTOPRAZOLE 40 MG TABLET PO SCH (08:38)
[2023-05-09] MEDS: ENOXAPARIN 40 MG/0.4 ML SYRINGE SQ SCH (08:38)
[2023-05-09] MEDS: METOPROLOL SUCCINATE (ER) 25 MG TAB.ER.24H PO SCH ×2 (08:38→20:19)
[2023-05-09] MEDS: ATORVASTATIN 20 MG TAB PO SCH (08:38)
[2023-05-09] MEDS: DAPAGLIFLOZIN PROPANEDIOL 10 MG TABLET PO SCH (08:38)
[2023-05-09] MEDS: CHOLECALCIFEROL 25 MCG (1000 IU) TABLET PO SCH ×2 (08:38→20:19)
[2023-05-09] MEDS: BENZONATATE 100 MG CAP PO SCH ×3 (08:38→21:23)
[2023-05-09] MEDS: SPIRONOLACTONE 25 MG TAB PO SCH ×2 (08:38→20:18)
[2023-05-09] MEDS: CEFDINIR 300 MG CAP PO SCH (08:38)
[2023-05-09] MEDS: metFORMIN 500 MG TAB PO SCH ×2 (08:38→20:19)
[2023-05-09] MEDS: ASPIRIN 81 MG PO SCH ×2 (08:38→20:18)
[2023-05-09 08:49] LABS: Basophils # (A) 0.07 X 10*3/uL (0.00-0.10); Basophils % (A) 0.5 %; Eosinophils # (A) 0.64 X 10*3/uL (0.04-0.35); Eosinophils % (A) 4.3 %; HCT 44.5 % (37.2-46.3); HGB 13.3 g/dL (12.0-15.0); Lymphocytes # (A) 1.03 X 10*3/uL (0.90-5.00); Lymphocytes % (A) 6.9 %; MCHC 29.9 g/dL (32.0-37.0); MCV 96.9 FL (80.0-97.0); Monocytes # (A) 0.98 X 10*3/uL (0.20-1.00); Monocytes % (A) 6.6 %; NRBC Per 100 WBC 0 X 10*3/uL (0.00-0.01); Platelet Count 277 X 10*3/uL (140-440); RBC 4.59 X 10*6/uL (4.10-5.20); RDW 15.1 % (11.5-14.5); WBC 14.93 X 10*3/uL (4.50-10.00)
[2023-05-09 09:13] LABS: ALT 7 U/L (8-44); AST 13 U/L (13-35); Albumin 3.6 g/dL (3.8-4.9); Albumin/Globulin Ratio 1.24 Ratio (1.60-3.17); Alkaline Phosphatase 85 U/L (41-126); Calcium 9.6 mg/dL (8.7-10.3); Chloride 99 mmol/L (96-109); Globulin 2.9 g/dL (1.6-3.3); Glucose 188 mg/dL (70-110); Potassium 4.1 mmol/L (3.5-5.5); Sodium 140 mmol/L (135-145); Total Bilirubin 0.5 mg/dL (0.3-1.2); Total Protein 6.5 g/dL (6.2-8.2)
--- NOTE | 2023-05-09 10:14 | P.PN ---
Subjective Progress Note Date: 05/08/23 Lorene Palma, is a 72-year-old female who presented with multiple complaints that have been occurring over the past few weeks. Patient reports she's had increased swelling to the lower extremity with weeping ulcers. Patient also reports she's had increased shortness of breath and cough. Patient also reports she's had tingling to hands bilaterally but has followed up with orthopedic surgeon outpatient. Patient has a past medical history of diabetes mellitus, DVT, I disorder, osteoporosis, pneumonia and macular degeneration. Chest x-ray completed showing marked interstitial phase pulmonary edema presumably cardiogenic etiology. Lab work revealing elevated d-dimer 2.31. CT of the chest performed showing trace pericardial effusion, scattered reticular infiltrates in the right upper lobe and both lung bases consider viral or interstitial pneumonia. Pulmonary arterial tree is adequately opacified with contrast no large central emboli are visible there is under opacification of a small segmental branch in the left lower lobe laterally no discrete thrombus is visible. This is of questioned significance small segmental pulmonary embolism cannot be excluded. Aortic arch is mildly calcified but nondilated. Will consult pulmonary services. Venous Doppler completed no deep vein thrombosis identified. Troponins negative. BNP elevated at 5250. UA positive for urinary tract infection. At this time patient will be admitted cardiology pulmonary service is consulted. Bilateral lower extremities noted for cellulitis. Infectious disease service is consulted patient started on IV antibiotics. 2-D echo ordered. COVID-19 negative. Patient started on IV Lasix On 04/26/2023 patient was seen and examined on the telemetry floor she is alert and oriented 3 in no apparent distress, she is complaining of bilateral lower extremity pain, site of cellulitis and ulcers, she is also complaining of left shoulder pain and shortness of breath with any activity, otherwise she denies any complaints there is no fever or chills no headache or dizziness no chest pain no cough no nausea or vomiting no abdominal pain no diarrhea no blood in the stools no burning with urination no frequency or urgency and no hematuria. At this time awaiting further recommendation from cardiology. Patient is maintained on IV antibiotic for bilateral lower extremity cellulitis with ulcers, awaiting further input from infectious disease. On 04/27/2023 patient alert and oriented 3. Patient reports improvement with lower infection many pain. Patient remains on IV cefazolin. Tessalon pearls added for cough. Pulmonary cardiology and infectious disease service is consulted. Vital signs temp 98.3, heart rate 97, respiratory rate 18, blood pressure 119/63 with pulse ox of 91% on 2 L On 04/28/2023 patient was seen and examined on the telemetry floor she is alert and oriented 3 in no apparent distress yesterday she had worsening shortness of breath at night with significant drop in her O2 sat duration down to the 70s O2 supplements was increased to 15 L high flow, pulmonary and cardiology are fol lowing patient is improving gradually during the day today, repeat chest x-ray ordered will follow closely. On 04/29/2023 patient is alert and oriented 3. Sliding scale insulin added. 97.9, heart rate 76, respiratory rate 14, blood pressure 112/73 with pulse ox of 94% on 6 L. Patient remains on IV Kefzol and IV steroids On 04/30/2023 patient is alert and oriented 3. Patient reports improvement with shortness of breath and bilateral leg pain. Oxygen decreasing to 5 L. Per pulmonary services steroids have been DC'd. Patient remains on IV antibiotics. Pulmonary, cardiology and infectious disease services following. Current vital signs temp 97.9, heart rate 80, respiratory rate 18, blood pressure 115/73 with pulse ox 93% on 5 L On 05/01/2023 patient was seen and examined on the telemetry floor she is alert and oriented 3 in no apparent distress there is no fever or chills no headache or dizziness she is still having shortness of breath she is still requiring 4 L of oxygen there is no chest pain no cough no nausea or vomiting no abdominal pain no diarrhea and no urinary symptoms, she remains on IV cefazolin for bilateral lower extremity cellulitis with ulcers. On 05/02/2023 patient is alert and oriented 3. Current vital signs temp 98, heart rate 86, respiratory rate 22, blood pressure 128/76 with a pulse ox 92% on 5 L. By mouth Lasix increased to twice daily. Patient remains on IV antibiotics. Infectious disease pulmonary and cardiology services following On 05/03/2023 patient alert and oriented 3 currently sitting up in chair. Patient was started on Diamox for elevated CO2. Patient also started on Aldactone per cardiology services. Pulmonary cardiology service is currently following. Current vital signs temp 97.9, pulse rate 79, respiratory rate 18, blood pressure 122/84 with a pulse ox 90% on 5 L On 05/04/2023 patient was seen and examined on the medical floor, she is alert and oriented 3 in no apparent distress, she is still complaining of shortness of breath with any activity, she is also complaining of bilateral lower extremity edema erythema and tenderness, there is a large ulcer on the right pretibial area. Patient remains on oxygen supplements at 5 L/m, she remains on Lasix and Aldactone and Diamox vital exam reveals a temperature of 98.3 pulse 72 respiration 18 blood pressure 123/71 pulse ox 93% on 5 L nasal cannula, labs to day are still pending. On 05/05/2023 patient was seen and examined on the medical floor she is alert and oriented 3 in no apparent distress there is no fever or chills no headache or dizziness no chest pain no shortness of breath at rest, she is still having significant shortness of breath with any activity she is still maintained on oxygen 3 L nasal cannula, she is still having some cough no nausea or vomiting no abdominal pain no diarrhea and no urinary symptoms. Patient is maintained on Ancef for bilateral lower extremity cellulitis infectious disease following, will recheck labs and follow-up in the am On 05/06/2023 patient's alert and oriented 3. Still complaining of some shortness breath and coughing. Pulmonary services are following. Current vital signs temp 97.9, heart rate 79, respiratory rate 16, blood pressure 107/70 with a pulse ox of 93% on 4 L Chest x-ray done yesterday revealed evidence of cardiomegaly with ongoing interstitial densities and patchy density at the right mid lung which is increasing. On 05/07/2023 patient is alert and oriented 3. Sputum culture ordered per pulmonary. Ultrasound of bladder and abdomen completed results pending. Vital signs temp 98.2, her 85, respiratory rate 16, blood pressure 117/76 with pulse ox of 91% on 4 L. On 05/08/2023 patient is alert and oriented 3. Pulmonary services are following. Orthopedic services and urology services consulted. Patient still complaining of some shortness of breath. Patient denies chest pain. Patient denies nausea vomiting or diarrhea. Patient denies any urinary burning or isaias quency Objective - Vital Signs Vital signs: Vital Signs Temp 97.6 F 05/08/23 07:40 Pulse 83 05/08/23 07:40 Resp 16 05/08/23 07:40 BP 129/84 05/08/23 07:40 Pulse Ox 93 L 05/08/23 07:40 FiO2 Intake & Output 05/07/23 05/08/23 05/08/23 18:59 06:59 18:59 Output Total 600 1300 Balance -600 -1300 Output: Urine 600 1300 Other: Voiding Method Diaper Diaper Incontinent Incontinent External Catheter External Catheter - Exam In general patient is alert and oriented x 3 in no distress HEENT head normocephalic and atraumatic Neck is supple no JVD no goiter no lymphadenopathy no carotid bruit Chest examination is clear to auscultation no crackles no wheezing Cardiac exam reveals regular heart sounds S1 and S2 no gallops no murmurs Abdomen is soft nontender no organomegaly with normal bowel sounds Extremity exam reveals bilateral pretibial erythema with superficial ulcers and 2+ edema Neurological examination reveals no gross focal deficits - Labs CBC & Chem 7: 05/09/23 06:00 05/09/23 06:00 Labs: Abnormal Lab Results - Last 24 Hours (Table) 05/07/23 05/07/23 05/07/23 Range/Units 12:00 17:20 20:14 POC Glucose (mg/dL) 156 H 181 H 233 H (70-110) mg/dL 05/08/23 Range/Units 07:44 POC Glucose (mg/dL) 163 H (70-110) mg/dL Assessment and Plan Assessment: 1. Shortness of breath 2. CHF exacerbation. Noted elevated BNP. 2-D echo ordered patient started on IV Lasix 3. Elevated d-dimer. CTA performed negative venous Doppler 4. Possible pneumonia. Pulmonary service is consulted 5. Urinary tract infection urine culture ordered 6. Lower extremity cellulitis. Patient started on IV antibiotics infectious disease service is consulted 7. History of diabetes mellitus 8. History of DVT 9. History of pneumonia 10. History of macular degeneration 11. Elevated CO2 patient started Diamox DVT prophylaxis Lovenox. GI prophylaxis Protonix Cardiology, pulmonary and infectious disease service is consulted Patient started on IV antibiotic sputum culture ordered Maintained on by mouth Lasix
--- NOTE | 2023-05-09 10:18 | P.PN ---
Subjective Progress Note Date: 05/09/23 Lorene Palma, is a 72-year-old female who presented with multiple complaints that have been occurring over the past few weeks. Patient reports she's had increased swelling to the lower extremity with weeping ulcers. Patient also reports she's had increased shortness of breath and cough. Patient also reports she's had tingling to hands bilaterally but has followed up with orthopedic surgeon outpatient. Patient has a past medical history of diabetes mellitus, DVT, I disorder, osteoporosis, pneumonia and macular degeneration. Chest x-ray completed showing marked interstitial phase pulmonary edema presumably cardiogenic etiology. Lab work revealing elevated d-dimer 2.31. CT of the chest performed showing trace pericardial effusion, scattered reticular infiltrates in the right upper lobe and both lung bases consider viral or interstitial pneumonia. Pulmonary arterial tree is adequately opacified with contrast no large central emboli are visible there is under opacification of a small segmental branch in the left lower lobe laterally no discrete thrombus is visible. This is of questioned significance small segmental pulmonary embolism cannot be excluded. Aortic arch is mildly calcified but nondilated. Will consult pulmonary services. Venous Doppler completed no deep vein thrombosis identified. Troponins negative. BNP elevated at 5250. UA positive for urinary tract infection. At this time patient will be admitted cardiology pulmonary service is consulted. Bilateral lower extremities noted for cellulitis. Infectious disease service is consulted patient started on IV antibiotics. 2-D echo ordered. COVID-19 negative. Patient started on IV Lasix On 04/26/2023 patient was seen and examined on the telemetry floor she is alert and oriented 3 in no apparent distress, she is complaining of bilateral lower extremity pain, site of cellulitis and ulcers, she is also complaining of left shoulder pain and shortness of breath with any activity, otherwise she denies any complaints there is no fever or chills no headache or dizziness no chest pain no cough no nausea or vomiting no abdominal pain no diarrhea no blood in the stools no burning with urination no frequency or urgency and no hematuria. At this time awaiting further recommendation from cardiology. Patient is maintained on IV antibiotic for bilateral lower extremity cellulitis with ulcers, awaiting further input from infectious disease. On 04/27/2023 patient alert and oriented 3. Patient reports improvement with lower infection many pain. Patient remains on IV cefazolin. Tessalon pearls added for cough. Pulmonary cardiology and infectious disease service is consulted. Vital signs temp 98.3, heart rate 97, respiratory rate 18, blood pressure 119/63 with pulse ox of 91% on 2 L On 04/28/2023 patient was seen and examined on the telemetry floor she is alert and oriented 3 in no apparent distress yesterday she had worsening shortness of breath at night with significant drop in her O2 sat duration down to the 70s O2 supplements was increased to 15 L high flow, pulmonary and cardiology are fol lowing patient is improving gradually during the day today, repeat chest x-ray ordered will follow closely. On 04/29/2023 patient is alert and oriented 3. Sliding scale insulin added. 97.9, heart rate 76, respiratory rate 14, blood pressure 112/73 with pulse ox of 94% on 6 L. Patient remains on IV Kefzol and IV steroids On 04/30/2023 patient is alert and oriented 3. Patient reports improvement with shortness of breath and bilateral leg pain. Oxygen decreasing to 5 L. Per pulmonary services steroids have been DC'd. Patient remains on IV antibiotics. Pulmonary, cardiology and infectious disease services following. Current vital signs temp 97.9, heart rate 80, respiratory rate 18, blood pressure 115/73 with pulse ox 93% on 5 L On 05/01/2023 patient was seen and examined on the telemetry floor she is alert and oriented 3 in no apparent distress there is no fever or chills no headache or dizziness she is still having shortness of breath she is still requiring 4 L of oxygen there is no chest pain no cough no nausea or vomiting no abdominal pain no diarrhea and no urinary symptoms, she remains on IV cefazolin for bilateral lower extremity cellulitis with ulcers. On 05/02/2023 patient is alert and oriented 3. Current vital signs temp 98, heart rate 86, respiratory rate 22, blood pressure 128/76 with a pulse ox 92% on 5 L. By mouth Lasix increased to twice daily. Patient remains on IV antibiotics. Infectious disease pulmonary and cardiology services following On 05/03/2023 patient alert and oriented 3 currently sitting up in chair. Patient was started on Diamox for elevated CO2. Patient also started on Aldactone per cardiology services. Pulmonary cardiology service is currently following. Current vital signs temp 97.9, pulse rate 79, respiratory rate 18, blood pressure 122/84 with a pulse ox 90% on 5 L On 05/04/2023 patient was seen and examined on the medical floor, she is alert and oriented 3 in no apparent distress, she is still complaining of shortness of breath with any activity, she is also complaining of bilateral lower extremity edema erythema and tenderness, there is a large ulcer on the right pretibial area. Patient remains on oxygen supplements at 5 L/m, she remains on Lasix and Aldactone and Diamox vital exam reveals a temperature of 98.3 pulse 72 respiration 18 blood pressure 123/71 pulse ox 93% on 5 L nasal cannula, labs to day are still pending. On 05/05/2023 patient was seen and examined on the medical floor she is alert and oriented 3 in no apparent distress there is no fever or chills no headache or dizziness no chest pain no shortness of breath at rest, she is still having significant shortness of breath with any activity she is still maintained on oxygen 3 L nasal cannula, she is still having some cough no nausea or vomiting no abdominal pain no diarrhea and no urinary symptoms. Patient is maintained on Ancef for bilateral lower extremity cellulitis infectious disease following, will recheck labs and follow-up in the am On 05/06/2023 patient's alert and oriented 3. Still complaining of some shortness breath and coughing. Pulmonary services are following. Current vital signs temp 97.9, heart rate 79, respiratory rate 16, blood pressure 107/70 with a pulse ox of 93% on 4 L Chest x-ray done yesterday revealed evidence of cardiomegaly with ongoing interstitial densities and patchy density at the right mid lung which is increasing. On 05/07/2023 patient is alert and oriented 3. Sputum culture ordered per pulmonary. Ultrasound of bladder and abdomen completed results pending. Vital signs temp 98.2, her 85, respiratory rate 16, blood pressure 117/76 with pulse ox of 91% on 4 L. On 05/08/2023 patient is alert and oriented 3. Pulmonary services are following. Orthopedic services and urology services consulted. Patient still complaining of some shortness of breath. Patient denies chest pain. Patient denies nausea vomiting or diarrhea. Patient denies any urinary burning or isaias quency On 05/09/2023 patient's alert and oriented 3. Patient has been started on IV Lasix per pulmonary. orthopedic services evaluated continue conservative management for knee pain. Urology service is following for hematuria. Patient playing of dry cough. Patient denies chest pain. Patient denies nausea vomiting or diarrhea. Patient denies any urinary burning or frequency Objective - Vital Signs Vital signs: Vital Signs Temp 98.5 F 05/09/23 07:03 Pulse 84 05/09/23 07:40 Resp 18 05/09/23 07:03 BP 128/66 05/09/23 07:03 Pulse Ox 95 05/09/23 07:28 FiO2 Intake & Output 05/08/23 05/09/23 05/09/23 18:59 06:59 18:59 Output Total 900 1100 Balance -900 -1100 Output: Urine 900 1100 Other: Voiding Method Diaper Diaper Incontinent Incontinent External Catheter External Catheter # Voids 1 - Exam In general patient is alert and oriented x 3 in no distress HEENT head normocephalic and atraumatic Neck is supple no JVD no goiter no lymphadenopathy no carotid bruit Chest examination is clear to auscultation no crackles no wheezing Cardiac exam reveals regular heart sounds S1 and S2 no gallops no murmurs Abdomen is soft nontender no organomegaly with normal bowel sounds Extremity exam reveals bilateral pretibial erythema with superficial ulcers and 2+ edema Neurological examination reveals no gross focal deficits - Labs CBC & Chem 7: 05/09/23 06:00 05/09/23 06:00 Labs: Abnormal Lab Results - Last 24 Hours (Table) 05/08/23 05/08/23 05/08/23 Range/Units 11:59 17:24 20:17 WBC (4.50-10.00) X 10*3/uL MCHC (32.0-37.0) g/dL RDW (11.5-14.5) % Immature Gran # (0.00-0.04) X 10*3/uL Neutrophils # (1.80-7.70) X 10*3/uL Eosinophils # (0.04-0.35) X 10*3/uL BUN (9.0-27.0) mg/dL BUN/Creatinine Ratio (12.00-20.00) Ratio Glucose (70-110) mg/dL POC Glucose (mg/dL) 165 H 173 H 235 H (70-110) mg/dL ALT (8-44) U/L Albumin (3.8-4.9) g/dL Albumin/Globulin Ratio (1.60-3.17) Ratio 05/09/23 05/09/23 05/09/23 Range/Units 06:00 06:00 07:00 WBC 14.93 H (4.50-10.00) X 10*3/uL MCHC 29.9 L (32.0-37.0) g/dL RDW 15.1 H (11.5-14.5) % Immature Gran # 0.11 H (0.00-0.04) X 10*3/uL Neutrophils # 12.10 H (1.80-7.70) X 10*3/uL Eosinophils # 0.64 H (0.04-0.35) X 10*3/uL BUN 29.0 H (9.0-27.0) mg/dL BUN/Creatinine Ratio 29.00 H (12.00-20.00) Ratio Glucose 188 H (70-110) mg/dL POC Glucose (mg/dL) 177 H (70-110) mg/dL ALT 7 L (8-44) U/L Albumin 3.6 L (3.8-4.9) g/dL Albumin/Globulin Ratio 1.24 L (1.60-3.17) Ratio Microbiology - Last 24 Hours (Table) 05/06/23 20:00 Gram Stain - Preliminary Sputum Sputum Culture - Preliminary Gram Neg Bacilli 05/06/23 17:35 Urine Culture - Preliminary Urine,Voided Gram Neg Bacilli Assessment and Plan Assessment: 1. Shortness of breath 2. CHF exacerbation. Noted elevated BNP. 2-D echo ordered patient started on IV Lasix 3. Elevated d-dimer. CTA performed negative venous Doppler 4. Possible pneumonia. Pulmonary service is consulted 5. Urinary tract infection urine culture ordered 6. Lower extremity cellulitis. Patient started on IV antibiotics infectious disease service is consulted 7. History of diabetes mellitus 8. History of DVT 9. History of pneumonia 10. History of macular degeneration 11. Elevated CO2 patient started Diamox 12. Hematuria. Urology service is following 13. Knee pain. Orthopedic service consulted DVT prophylaxis Lovenox. GI prophylaxis Protonix Cardiology, pulmonary and infectious disease service is consulted Patient started on IV antibiotic sputum culture ordered Maintained on by mouth Lasix
--- NOTE | 2023-05-09 11:40 | P.PN ---
Subjective Progress Note Date: 05/09/23 72-year-old female seen in the emergency department, room 15. She's here with her . She apparently presented to the emergency department, on April 24, with multiple complaints including leg swelling, shortness of breath, cough, and generally just not feeling well. She also has some tingling to her hands bilaterally, and apparently has been seen by one of the hand surgeons. The patient is laying flat in bed. She is on a couple liters of oxygen. She's not receiving any IV fluids. She tells me that she has cellulitis of the lower extremities. She is a rather large woman. She also tells me that her only major medical problem is diabetes mellitus. Although, she apparently has a hist ory of DVT, osteoarthritis, and pneumonia. She also has a previous history of kidney stones, status post lithotripsy. Current labs include a white count 6.6, hemoglobin 12.9, hematocrit 42.6, and a platelet count of 101,000. D-dimer is 2.31. Venous blood gases showed CO2 49 and a pH is 7.36. Sodium 140, potassium 4.7, chlorides 105, CO2 25, BUN 22, creatinine 0.69. The N-terminal proBNP is e levated at 5250. Troponins were negative 2. Urine showed 2+ protein and moderate blood and large leukocyte esterase, 93 RBCs 74 WBCs, rare bacteria, and occasional mucus. Testing for coronavirus was negative. Chest x-ray showed changes consistent with pulmonary edema/fluid overload. CT angiogram was negative for pulmonary embolism. Doppler of the lower semis was negative for DVT. Progress note dated 04/26/2023. 72-year-old obese female seen yesterday in the emergency department. Today, she is seen in room 368. The patient's currently on 3 L of oxygen. She is receiving Lasix and her fluid overload, and Ancef, for her lower extremity edema. Her lower extremity edema is a bit better today. She does feel a bit better today, less short of breath. Current laboratory data includes a glucose of 181. Testing for harper virus was negative. Troponin was less than 0.012, 2. Progress note dated 04/27/2023. 73-year-old female initially seen in the emergency department, but is seen in room 368 today. She continues on oxygen at 3 L. No IV fluids. For her cough, we ordered some Tessalon Perles. In addition, she continues on Ancef for her bilateral lower extremity cellulitis. Also, she is receiving diuretics, for her pulmonary edema. Today's laboratory data includes a glucose of 137. Testing for harper virus was negative. Blood cultures are negative. On today's evaluation of 04/28/2023, I'm seeing the patient for a follow-up. She is on 10 L of oxygen by nasal cannula. She is in for increased lower extremity edema, hypoxic respiratory failure, lower extremity infection. The patient has some mild cardiomegaly on her CT angiogram. No evidence of any pulmonary embolism. Her echocardiogram showed LV function with ejection fraction of 50-55%. She has severe RV dilatation and severe pulmonary hypertension and she may have an underlying obstructive sleep apnea. No recent CBC, most recent electrolytes show a BUN of 34 with a creatinine 1.1 and sodium level is at 138. She is currently on oxygen at 10 L she is on IV cefazolin. She is also on oral Lasix 40 mg by mouth daily. She remains on bronchodilators with albuterol HFA, IV Solu-Medrol 20 mg every 8 hours and Lovenox 40 mg subcu portably prophylaxis. On 04/29/2023, the patient is sitting up in a recliner. Doing well. She is down to 6 L of oxygen nasal cannula. She is still on Lasix. She is in a negative fluid balance. Labs from today are still pending. No other significant events overnight. No angina. No palpitations. No chest pain. Remains on albuterol HFA, IV Solu-Medrol 20 mg every 8 hours then Lovenox 40 mg subcu for DVT prophylaxis. On 04/30/2023, the patient is being seen for a follow-up. Doing well. No new complaints. The patient has been weaned down to 5 L of oxygen by nasal cannula with a pulse ox of 95%. The patient is diuresing adequately and the patient is a negative fluid balance of at least 2 L over the past 24 hours. The patient is currently on Lasix 40 mg by mouth daily. The patient is still on IV cefazolin regarding lower extremity cellulitis. Edema still present in the legs bilaterally. Blood work from today shows a BUN of 44 with a creatinine of 0.7. Sodium level is at 138. The risks count of 9.3 with a hemoglobin 15.1 and a platelet count of 243. No chest pain. No interval worsening shortness of breath. On 05/01/2023, the patient has been weaned down to 5 L. Her current pulse ox is 93%. She is making excellent urine output. Overall fluid balance is -2 L over the past 24 hours. She remains on Lasix 40 mg by mouth and the dose was increased up to twice a day. She remains on IV cefazolin. Lower extremity cellulitis is also improving. Mentally she is awake and alert and communicating. She is trying to increase her mobility. She is working with physical therapy. Blood work shows a sodium level of 141, BUN is 34 with a creatinine of 0.6. LFTs are normal. The viscosity 0.8 with a hemoglobin 15.4 and a platelet count of 178. on today's evaluation of 05/02/2023, the patient is still on 5 L of O2 nasal cannula. She is producing excellent urine output. There is significant improvement in lower extremity edema and the wound over the right lower extremity so is essentially eating at this point in time. There is no active drainage. The wound is very healthy-looking. Edema lower extremity is also improving. Meanwhile, the patient remains on oral Lasix. Fluid balance is negative at least 2 L over the past 24 hours.White cell count of 8.2 with a hemoglobin of 13.4 and a platelet count of 181. BUN is at 28 with a creatinine of 0.6 and a sodium level is at 140. Potassium levels at 4.0. The patient re atif on IV cefazolin. The patient is on Lasix 40 mg by mouth twice a day. Rest of the medications remain unchanged. The patient and KVO. We will balance is -2.3 L over the past 24 hours. On 05/03/2023, no new complaints. The patient is sitting up on a chair. She is currently on room air oxygen. Oxygen saturation is improved. The patient was transferred to the [facility]. The fluid balance is negative at least 2.3 L. The labs are all stable, the viscosity 11.1, he was 13.8, serum bicarbonate is 41, BUN is 28 with a creatinine of 0.66 05/04/2023, condition is stable. Still on 5 L of O2 nasal cannula. She patient continues to the stable and saturations improved. We should be able to wean down FiO2. No new complaints otherwise for now. The patient is seen today 05/05/2023 in follow-up on the regular medical floor. She is currently resting in bed. Awake and alert in no acute distress. She denies any worsening shortness of breath, cough or congestion. He is maintainin g O2 saturation in the 90s on 3 L/m per nasal cannula. She's afebrile. Hemodynamically stable. Blood cultures revealed no growth. White count 12.2. Hemoglobin 13.5. Platelets 232. Sodium 138. Potassium 3.7. Bicarb 25. BUN 29. Creatinine 0.83. Glucose 173. She is continued on DuoNeb inhalations. Remains on antibiotics in the form of cefazolin. Continued on oral diuretics. Currently in a negative balance. The patient is seen today 05/06/2023 in follow-up on the regular medical floor. She is currently laying flat in bed. Awake and alert in no acute distress. Denies any worsening shortness of breath. She continues with a dry nonproductive cough. She is maintaining good O2 saturations in the 90s on 4 L/m per nasal cannula. She's afebrile. Hemodynamically stable. Follow-up chest x- ray shows mild cardiomegaly and ongoing interstitial densities. Mild pulmonary vascular congestion. Patchy density in the right midlung. I count 10.4. Hemoglobin 12.9. Platelets 218. Glucose 159. She continues on bronchodilators. Oral diuretics. Lovenox for DVT prophylaxis. Remains on cefazolin per ID services. The patient is seen today 05/07/2023 in follow-up on the regular medical floor. She is sitting up in bed. Awake and alert. Having breakfast. Denies any worsening shortness of breath, cough or congestion. Maintaining O2 saturations in the 90s on 4 L/m per nasal cannula. She's been afebrile. Hemodynamically stable. Glucose 156. She remains on Diamox, Lasix, Aldactone. Continued on bronchodilators, Tessalon Perles. Lovenox for DVT prophylaxis. Antibiotics in the form of Omnicef. The patient is seen today 05/08/2023 in follow-up on the regular medical floor. She remains awake and alert in no acute distress. Continues with a cough with occasional yellow phlegm. No fever chills. No chest pain. Pro-calcitonin was 0.10. She continues to maintain good O2 saturations in the 90s on 4 L/m per nasal cannula. She's been afebrile. Hemodynamically stable. During culture positive for gram-negative bacilli. Blood cultures revealed no growth. Follow- up chest x-ray today continues to show evidence of fluid volume overload. Count 9.7. Hemoglobin 12.7. Platelets 249. Sodium 140. Potassium 4.0. Bicarb 27. BUN 30. Creatinine 0.8. Glucose 184. AST 11. ALT 6. He is continued on DuoNeb inhalations, Tessalon Perles, antibiotics in the form of Omnicef. She is on Lasix 40 mg by mouth twice a day long with Aldactone 25 mg daily. The patient is seen today 05/09/2023 in follow-up on the regular medical floor. She is resting comfortably in bed. Awake and alert in no acute distress. Maintaining good O2 saturations in the 90s on 4 L/m per nasal cannula. Today's chest x-ray continues to show cardiomegaly there is improvement in the pulmonary venous congestion. She remains on IV diuretics. Currently in a -2 L balance. She had undergone urogram CT today. Results are pending. Yesterday she had some complaints of right knee pain. X-ray revealed no acute osseous pathology. Urine culture had been positive for pseudomonas aeruginosa. Sputum culture showing gram-negative bacilli. White count 14.9. Hemoglobin 13.3. Platelets 277. Sodium 140. Potassium 4.1. Bicarb 29. BUN 29. Creatinine 1.0. Glucose 188. ProBNP 1320. She is continued on DuoNeb inhalations, Tessalon Perles, antibiotics in the form of Omnicef. She is on Lasix 40 mg IV 8 hours, Aldactone 25 mg twice a day. Objective - Vital Signs Vital signs: Vital Signs Temp 98.5 F 05/09/23 07:03 Pulse 80 05/09/23 11:21 Resp 18 05/09/23 07:03 BP 128/66 05/09/23 07:03 Pulse Ox 82 L 05/09/23 11:14 FiO2 Intake & Output 05/08/23 05/09/23 05/09/23 18:59 06:59 18:59 Output Total 900 1100 Balance -900 -1100 Output: Urine 900 1100 Other: Voiding Method Diaper Diaper Diaper Incontinent Incontinent Incontinent External Catheter External Catheter External Catheter # Voids 1 - Exam GENERAL EXAM: Alert, oriented, morbidly obese 72-year-old female, resting in bed, on 4 L nasal cannula, in no apparent distress. HEAD: Normocephalic. EYES: Normal reaction of pupils, equal size. NOSE: Clear with pink turbinates. THROAT: No erythema or exudates. NECK: No masses, no JVD. CHEST: No chest wall deformity. LUNGS: Equal air entry with few scattered rhonchi, crackles in the posterior bases. CVS: S1 and S2 normal with no audible murmur, regular rhythm. ABDOMEN: Obese, normal bowel sounds, no guarding or rigidity. SPINE: No scoliosis or deformity SKIN: His of chronic venous stasis of the bilateral lower extremities with cellulitis. CENTRAL NERVOUS SYSTEM: No focal deficits, tone is normal in all 4 extremities. EXTREMITIES: Cellulitis of the bilateral lower extremities, Matthias wraps in place. No clubbing, no cyanosis. Peripheral pulses are intact. - Labs CBC & Chem 7: 05/09/23 06:00 05/09/23 06:00 Labs: Abnormal Lab Results - Last 24 Hours (Table) 05/08/23 05/08/23 05/08/23 Range/Units 11:59 17:24 20:17 WBC (4.50-10.00) X 10*3/uL MCHC (32.0-37.0) g/dL RDW (11.5-14.5) % Immature Gran # (0.00-0.04) X 10*3/uL Neutrophils # (1.80-7.70) X 10*3/uL Eosinophils # (0.04-0.35) X 10*3/uL BUN (9.0-27.0) mg/dL BUN/Creatinine Ratio (12.00-20.00) Ratio Glucose (70-110) mg/dL POC Glucose (mg/dL) 165 H 173 H 235 H (70-110) mg/dL ALT (8-44) U/L Albumin (3.8-4.9) g/dL Albumin/Globulin Ratio (1.60-3.17) Ratio 05/09/23 05/09/23 05/09/23 Range/Units 06:00 06:00 07:00 WBC 14.93 H (4.50-10.00) X 10*3/uL MCHC 29.9 L (32.0-37.0) g/dL RDW 15.1 H (11.5-14.5) % Immature Gran # 0.11 H (0.00-0.04) X 10*3/uL Neutrophils # 12.10 H (1.80-7.70) X 10*3/uL Eosinophils # 0.64 H (0.04-0.35) X 10*3/uL BUN 29.0 H (9.0-27.0) mg/dL BUN/Creatinine Ratio 29.00 H (12.00-20.00) Ratio Glucose 188 H (70-110) mg/dL POC Glucose (mg/dL) 177 H (70-110) mg/dL ALT 7 L (8-44) U/L Albumin 3.6 L (3.8-4.9) g/dL Albumin/Globulin Ratio 1.24 L (1.60-3.17) Ratio Microbiology - Last 24 Hours (Table) 05/06/23 17:35 Urine Culture - Final Urine,Voided Pseudomonas aeruginosa 05/06/23 20:00 Gram Stain - Preliminary Sputum Sputum Culture - Preliminary Gram Neg Bacilli Assessment and Plan Assessment: Acute hypoxic respiratory failure, currently on 4 L of oxygen by nasal cannula. Shortness of breath is multifactorial. There is an obvious component of CHF with preserved LV function and severe right-sided heart failure with RV dysfunction and fluid overload. Follow-up chest x-ray today shows improvement in the fluid volume overload and interstitial edema. Right ventricular failure with severe pulmonary hypertension. Shortness of breath, consistent with fluid overload, given the x-ray changes, lower extremity edema, and elevated BNP. Probable cellulitis, bilateral lower extremities. The patient remains on Omnicef, so wound shows significant improvement. No evidence of pulmonary embolism or DVT. Urinary tract infection secondary to gram-negative bacilli. Morbid obesity. History of diabetes mellitus. History of vitamin D deficiency. Prior history of DVT. History of osteoarthritis. History of pneumonia. History of kidney stones with intermittent gross hematuria Stress urinary incontinence. Plan: The patient was seen and evaluated Chest x-ray, labs and medications reviewed Continue the current treatment plan Antibiotics per infectious disease who is following Urology is on the case as well, urogram CT ordered Increase the use of the incentive spirometer Increase her activity as tolerated Titrate down the FiO2 as tolerated We will continue to follow This patient was seen independently by the pulmonary nurse practitioner who performed the medical decision making I have personally seen and examined the patient, performed the documentation and the assessment and plan as written. Number of minutes spent on the visit: 22.
[2023-05-09 11:55] LABS: Glucose,Whole Blood 249 mg/dL (70-110)
--- NOTE | 2023-05-09 12:29 | P.PN ---
Subjective Progress Note Date: 05/09/23 No acute overnight event, CT Urogram showed bilateral renal stones, there is delayed drainage from right collecting system, but no hydronephrosis appreciated. continue to deny flank pain. Objective - Vital Signs Vital signs: Vital Signs Temp 98.5 F 05/09/23 07:03 Pulse 80 05/09/23 11:21 Resp 18 05/09/23 07:03 BP 128/66 05/09/23 07:03 Pulse Ox 82 L 05/09/23 11:14 FiO2 Intake & Output 05/08/23 05/09/23 05/09/23 18:59 06:59 18:59 Output Total 900 1100 Balance -900 -1100 Output: Urine 900 1100 Other: Voiding Method Diaper Diaper Diaper Incontinent Incontinent Incontinent External Catheter External Catheter External Catheter # Voids 1 - Constitutional General appearance: Present: no acute distress - Psychiatric Psychiatric: Present: A&O x's 3 - Labs CBC & Chem 7: 05/09/23 06:00 05/09/23 06:00 Labs: Abnormal Lab Results - Last 24 Hours (Table) 05/08/23 05/08/23 05/09/23 Range/Units 17:24 20:17 06:00 WBC 14.93 H (4.50-10.00) X 10*3/uL MCHC 29.9 L (32.0-37.0) g/dL RDW 15.1 H (11.5-14.5) % Immature Gran # 0.11 H (0.00-0.04) X 10*3/uL Neutrophils # 12.10 H (1.80-7.70) X 10*3/uL Eosinophils # 0.64 H (0.04-0.35) X 10*3/uL BUN (9.0-27.0) mg/dL BUN/Creatinine Ratio (12.00-20.00) Ratio Glucose (70-110) mg/dL POC Glucose (mg/dL) 173 H 235 H (70-110) mg/dL ALT (8-44) U/L Albumin (3.8-4.9) g/dL Albumin/Globulin Ratio (1.60-3.17) Ratio 05/09/23 05/09/23 05/09/23 Range/Units 06:00 07:00 11:53 WBC (4.50-10.00) X 10*3/uL MCHC (32.0-37.0) g/dL RDW (11.5-14.5) % Immature Gran # (0.00-0.04) X 10*3/uL Neutrophils # (1.80-7.70) X 10*3/uL Eosinophils # (0.04-0.35) X 10*3/uL BUN 29.0 H (9.0-27.0) mg/dL BUN/Creatinine Ratio 29.00 H (12.00-20.00) Ratio Glucose 188 H (70-110) mg/dL POC Glucose (mg/dL) 177 H 249 H (70-110) mg/dL ALT 7 L (8-44) U/L Albumin 3.6 L (3.8-4.9) g/dL Albumin/Globulin Ratio 1.24 L (1.60-3.17) Ratio Microbiology - Last 24 Hours (Table) 05/06/23 17:35 Urine Culture - Final Urine,Voided Pseudomonas aeruginosa 05/06/23 20:00 Gram Stain - Preliminary Sputum Sputum Culture - Preliminary Gram Neg Bacilli Assessment and Plan Assessment: 72-year-old female history of gross hematuria. Had a negative cystoscopy in 2020 and there is a plan to set her up for outpatient cystoscopy and botox with Dr. Nicole. CT angiogram showed evidence of bilateral renal stones within the kidney, but kidney was not completely evaluated. Her gross hematuria is most likely secondary to her significant bilateral stone burden. CT Urogram showed bilateral stone burden, delayed drainage on right sided of collecting system -F/U as an outpatient for her gross hematuria and renal stone management with Dr Nicole
--- NOTE | 2023-05-09 13:14 | CT ---
EXAMINATION TYPE: CT urogram wo/w con DATE OF EXAM: 05/09/2023 COMPARISON: 02/05/2019 HISTORY: 72-year-old female gross hematuria TECHNIQUE: Contiguous axial scanning of the abdomen and pelvis performed without and with IV Contrast , patient injected with 80 mL of Isovue 300. Delayed images through the kidneys and bladder were obta ined. Coronal/sagittal reconstructions performed.. 3-D reconstructions generated on a dedicated [employer] workstation. CT DLP: 5642 mGycm Automated exposure control for dose reduction was used. FINDINGS: Visualized lower chest shows patchy airspace opacity right lower lobe. Correlation recommended to exc lude pneumonia. Three-vessel coronary artery calcifications. Possible underlying pulmonary arterial h ypertension. No pleural effusion. Tiny hiatal hernia. No focal liver lesion. Portal venous system is patent. No biliary ductal dilatation. Gallbladder, adrenal glands, spleen, and atrophic pancreas show no gross body. Large lobulated cyst of the right kidney measuring 7.9 cm versus 7.7 cm back in 2019. Multiple right- sided renal calculi measuring up to 9 mm some present within the minor calyceal system. No hydronephr osis. Left kidney shows a benign 3.5 cm cyst posterior mid left kidney (2.4 cm, previously). There is a 1.4 cm stone or layering or casting within the left renal pelvis. Additional few nonobstructive left farhat al calculi measuring up to 9 mm. No hydronephrosis. No suspicious cysts renal mass is identified. Nonenhancement along segment of the right ureter. No obvious abnormality along the expected course of the right ureter. Left ureter appears satisfactory. [id number] atherosclerotic calcifications infrarenal abdominal aorta. There is a left common il iac vein stent noted. No dilated small bowel, free fluid, or free air. No mesenteric or retroperitoneal lymphadenopathy. [id number] stool burden. Sigmoid diverticulosis. No pericolic inflammatory change. Bladder is urine distended. Uterus surgically absent. Both ovaries are visualized. No abnormal fluid collection in the pelvis or pelvic lymphadenopathy. Bones: Moderate to severe degenerative disc disease mid to lower lumbar spine. IMPRESSION: 1. NEW OPACITY RIGHT LOWER LOBE. CORRELATE FOR PNEUMONIA. 2. LARGE LOBULATED CYST OF THE RIGHT KIDNEY MEASURING 7.9 CM. SMALLER 2.5 CM CYST OF THE LEFT KIDNEY. BOTH SLIGHTLY LARGER FROM 2019. NO SUSPICIOUS RENAL MASS OR HYDRONEPHROSIS IS SEEN. 3. BILATERAL NONOBSTRUCTIVE RENAL CALCULI MEASURING UP TO 9 MM ON THE RIGHT. SOME OF THE STONES MAY B E PRESENT WITHIN A MINOR CALYCEAL SYSTEM. LARGEST ON THE LEFT MAY BE EITHER LAYERING OR CASTING IN TH E LEFT RENAL PELVIS MEASURING UP TO 1.4 CM. 4. LIMITED ASSESSMENT OF THE RIGHT URETER. MOST OF THE RIGHT URETER REMAINS NONENHANCED. 5. SIGMOID DIVERTICULOSIS AND TINY HIATAL HERNIA.
[2023-05-09] MEDS: CEFEPIME 2 GM in SODIUM CHLORIDE 0.9% 100 ML IVPB SCH ×2 (16:38→23:50)
[2023-05-09 17:43] LABS: Glucose,Whole Blood 258 mg/dL (70-110)
[2023-05-09] MEDS: NYSTATIN 100,000 UNIT/GM POWD 15 GM TOPICAL SCH ×2 (17:48→21:23)
[2023-05-09] MEDS: guaiFENesin-Coden 100-10MG/5ML 10 ML CUP PO PRN (17:48)
[2023-05-09 20:12] LABS: Glucose,Whole Blood 344 mg/dL (70-110)
[2023-05-09] MEDS: OXYBUTYNIN 10 MG TAB.ER.24 PO SCH (20:19)
[2023-05-10] MEDS: FUROSEMIDE 10 MG/ML 4 ML VIAL IV SCH ×3 (03:51→20:54)
[2023-05-10] MEDS: PANTOPRAZOLE 40 MG TABLET PO SCH (07:22)
[2023-05-10] MEDS: BENZONATATE 100 MG CAP PO SCH ×3 (07:22→20:56)
[2023-05-10] MEDS: metFORMIN 500 MG TAB PO SCH ×2 (07:22→20:53)
[2023-05-10] MEDS: SPIRONOLACTONE 25 MG TAB PO SCH ×2 (07:22→20:53)
[2023-05-10] MEDS: ASPIRIN 81 MG PO SCH ×2 (07:22→20:53)
[2023-05-10] MEDS: CHOLECALCIFEROL 25 MCG (1000 IU) TABLET PO SCH ×2 (07:22→20:53)
[2023-05-10] MEDS: METOPROLOL SUCCINATE (ER) 25 MG TAB.ER.24H PO SCH ×2 (07:22→20:53)
[2023-05-10 07:23] LABS: Glucose,Whole Blood 232 mg/dL (70-110)
[2023-05-10] MEDS: ATORVASTATIN 20 MG TAB PO SCH (07:23)
[2023-05-10] MEDS: DAPAGLIFLOZIN PROPANEDIOL 10 MG TABLET PO SCH (07:23)
[2023-05-10] MEDS: CEFEPIME 2 GM in SODIUM CHLORIDE 0.9% 100 ML IVPB SCH ×2 (07:23→20:55)
[2023-05-10] MEDS: ENOXAPARIN 40 MG/0.4 ML SYRINGE SQ SCH (07:23)
[2023-05-10] MEDS: IPRATROPIUM-ALBUTEROL 3 ML NEB INHALATION SCH ×4 (07:30→18:08)
[2023-05-10] MEDS: INSULIN ASPART (NovoLOG) 100 UNIT/ML VIAL SQ SCH ×4 (07:30→20:57)
[2023-05-10] MEDS: NYSTATIN 100,000 UNIT/GM POWD 15 GM TOPICAL SCH ×3 (09:18→21:00)
--- NOTE | 2023-05-10 11:17 | P.PN ---
Subjective Progress Note Date: 05/10/23 72-year-old female seen in the emergency department, room 15. She's here with her . She apparently presented to the emergency department, on April 24, with multiple complaints including leg swelling, shortness of breath, cough, and generally just not feeling well. She also has some tingling to her hands bilaterally, and apparently has been seen by one of the hand surgeons. The patient is laying flat in bed. She is on a couple liters of oxygen. She's not receiving any IV fluids. She tells me that she has cellulitis of the lower extremities. She is a rather large woman. She also tells me that her only major medical problem is diabetes mellitus. Although, she apparently has a hist ory of DVT, osteoarthritis, and pneumonia. She also has a previous history of kidney stones, status post lithotripsy. Current labs include a white count 6.6, hemoglobin 12.9, hematocrit 42.6, and a platelet count of 101,000. D-dimer is 2.31. Venous blood gases showed CO2 49 and a pH is 7.36. Sodium 140, potassium 4.7, chlorides 105, CO2 25, BUN 22, creatinine 0.69. The N-terminal proBNP is e levated at 5250. Troponins were negative 2. Urine showed 2+ protein and moderate blood and large leukocyte esterase, 93 RBCs 74 WBCs, rare bacteria, and occasional mucus. Testing for coronavirus was negative. Chest x-ray showed changes consistent with pulmonary edema/fluid overload. CT angiogram was negative for pulmonary embolism. Doppler of the lower semis was negative for DVT. Progress note dated 04/26/2023. 72-year-old obese female seen yesterday in the emergency department. Today, she is seen in room 368. The patient's currently on 3 L of oxygen. She is receiving Lasix and her fluid overload, and Ancef, for her lower extremity edema. Her lower extremity edema is a bit better today. She does feel a bit better today, less short of breath. Current laboratory data includes a glucose of 181. Testing for harper virus was negative. Troponin was less than 0.012, 2. Progress note dated 04/27/2023. 73-year-old female initially seen in the emergency department, but is seen in room 368 today. She continues on oxygen at 3 L. No IV fluids. For her cough, we ordered some Tessalon Perles. In addition, she continues on Ancef for her bilateral lower extremity cellulitis. Also, she is receiving diuretics, for her pulmonary edema. Today's laboratory data includes a glucose of 137. Testing for harper virus was negative. Blood cultures are negative. On today's evaluation of 04/28/2023, I'm seeing the patient for a follow-up. She is on 10 L of oxygen by nasal cannula. She is in for increased lower extremity edema, hypoxic respiratory failure, lower extremity infection. The patient has some mild cardiomegaly on her CT angiogram. No evidence of any pulmonary embolism. Her echocardiogram showed LV function with ejection fraction of 50-55%. She has severe RV dilatation and severe pulmonary hypertension and she may have an underlying obstructive sleep apnea. No recent CBC, most recent electrolytes show a BUN of 34 with a creatinine 1.1 and sodium level is at 138. She is currently on oxygen at 10 L she is on IV cefazolin. She is also on oral Lasix 40 mg by mouth daily. She remains on bronchodilators with albuterol HFA, IV Solu-Medrol 20 mg every 8 hours and Lovenox 40 mg subcu portably prophylaxis. On 04/29/2023, the patient is sitting up in a recliner. Doing well. She is down to 6 L of oxygen nasal cannula. She is still on Lasix. She is in a negative fluid balance. Labs from today are still pending. No other significant events overnight. No angina. No palpitations. No chest pain. Remains on albuterol HFA, IV Solu-Medrol 20 mg every 8 hours then Lovenox 40 mg subcu for DVT prophylaxis. On 04/30/2023, the patient is being seen for a follow-up. Doing well. No new complaints. The patient has been weaned down to 5 L of oxygen by nasal cannula with a pulse ox of 95%. The patient is diuresing adequately and the patient is a negative fluid balance of at least 2 L over the past 24 hours. The patient is currently on Lasix 40 mg by mouth daily. The patient is still on IV cefazolin regarding lower extremity cellulitis. Edema still present in the legs bilaterally. Blood work from today shows a BUN of 44 with a creatinine of 0.7. Sodium level is at 138. The risks count of 9.3 with a hemoglobin 15.1 and a platelet count of 243. No chest pain. No interval worsening shortness of breath. On 05/01/2023, the patient has been weaned down to 5 L. Her current pulse ox is 93%. She is making excellent urine output. Overall fluid balance is -2 L over the past 24 hours. She remains on Lasix 40 mg by mouth and the dose was increased up to twice a day. She remains on IV cefazolin. Lower extremity cellulitis is also improving. Mentally she is awake and alert and communicating. She is trying to increase her mobility. She is working with physical therapy. Blood work shows a sodium level of 141, BUN is 34 with a creatinine of 0.6. LFTs are normal. The viscosity 0.8 with a hemoglobin 15.4 and a platelet count of 178. on today's evaluation of 05/02/2023, the patient is still on 5 L of O2 nasal cannula. She is producing excellent urine output. There is significant improvement in lower extremity edema and the wound over the right lower extremity so is essentially eating at this point in time. There is no active drainage. The wound is very healthy-looking. Edema lower extremity is also improving. Meanwhile, the patient remains on oral Lasix. Fluid balance is negative at least 2 L over the past 24 hours.White cell count of 8.2 with a hemoglobin of 13.4 and a platelet count of 181. BUN is at 28 with a creatinine of 0.6 and a sodium level is at 140. Potassium levels at 4.0. The patient re atif on IV cefazolin. The patient is on Lasix 40 mg by mouth twice a day. Rest of the medications remain unchanged. The patient and KVO. We will balance is -2.3 L over the past 24 hours. On 05/03/2023, no new complaints. The patient is sitting up on a chair. She is currently on room air oxygen. Oxygen saturation is improved. The patient was transferred to the [facility]. The fluid balance is negative at least 2.3 L. The labs are all stable, the viscosity 11.1, he was 13.8, serum bicarbonate is 41, BUN is 28 with a creatinine of 0.66 05/04/2023, condition is stable. Still on 5 L of O2 nasal cannula. She patient continues to the stable and saturations improved. We should be able to wean down FiO2. No new complaints otherwise for now. The patient is seen today 05/05/2023 in follow-up on the regular medical floor. She is currently resting in bed. Awake and alert in no acute distress. She denies any worsening shortness of breath, cough or congestion. He is maintainin g O2 saturation in the 90s on 3 L/m per nasal cannula. She's afebrile. Hemodynamically stable. Blood cultures revealed no growth. White count 12.2. Hemoglobin 13.5. Platelets 232. Sodium 138. Potassium 3.7. Bicarb 25. BUN 29. Creatinine 0.83. Glucose 173. She is continued on DuoNeb inhalations. Remains on antibiotics in the form of cefazolin. Continued on oral diuretics. Currently in a negative balance. The patient is seen today 05/06/2023 in follow-up on the regular medical floor. She is currently laying flat in bed. Awake and alert in no acute distress. Denies any worsening shortness of breath. She continues with a dry nonproductive cough. She is maintaining good O2 saturations in the 90s on 4 L/m per nasal cannula. She's afebrile. Hemodynamically stable. Follow-up chest x- ray shows mild cardiomegaly and ongoing interstitial densities. Mild pulmonary vascular congestion. Patchy density in the right midlung. I count 10.4. Hemoglobin 12.9. Platelets 218. Glucose 159. She continues on bronchodilators. Oral diuretics. Lovenox for DVT prophylaxis. Remains on cefazolin per ID services. The patient is seen today 05/07/2023 in follow-up on the regular medical floor. She is sitting up in bed. Awake and alert. Having breakfast. Denies any worsening shortness of breath, cough or congestion. Maintaining O2 saturations in the 90s on 4 L/m per nasal cannula. She's been afebrile. Hemodynamically stable. Glucose 156. She remains on Diamox, Lasix, Aldactone. Continued on bronchodilators, Tessalon Perles. Lovenox for DVT prophylaxis. Antibiotics in the form of Omnicef. The patient is seen today 05/08/2023 in follow-up on the regular medical floor. She remains awake and alert in no acute distress. Continues with a cough with occasional yellow phlegm. No fever chills. No chest pain. Pro-calcitonin was 0.10. She continues to maintain good O2 saturations in the 90s on 4 L/m per nasal cannula. She's been afebrile. Hemodynamically stable. During culture positive for gram-negative bacilli. Blood cultures revealed no growth. Follow- up chest x-ray today continues to show evidence of fluid volume overload. Count 9.7. Hemoglobin 12.7. Platelets 249. Sodium 140. Potassium 4.0. Bicarb 27. BUN 30. Creatinine 0.8. Glucose 184. AST 11. ALT 6. He is continued on DuoNeb inhalations, Tessalon Perles, antibiotics in the form of Omnicef. She is on Lasix 40 mg by mouth twice a day long with Aldactone 25 mg daily. The patient is seen today 05/09/2023 in follow-up on the regular medical floor. She is resting comfortably in bed. Awake and alert in no acute distress. Maintaining good O2 saturations in the 90s on 4 L/m per nasal cannula. Today's chest x-ray continues to show cardiomegaly there is improvement in the pulmonary venous congestion. She remains on IV diuretics. Currently in a -2 L balance. She had undergone urogram CT today. Results are pending. Yesterday she had some complaints of right knee pain. X-ray revealed no acute osseous pathology. Urine culture had been positive for pseudomonas aeruginosa. Sputum culture showing gram-negative bacilli. White count 14.9. Hemoglobin 13.3. Platelets 277. Sodium 140. Potassium 4.1. Bicarb 29. BUN 29. Creatinine 1.0. Glucose 188. ProBNP 1320. She is continued on DuoNeb inhalations, Tessalon Perles, antibiotics in the form of Omnicef. She is on Lasix 40 mg IV 8 hours, Aldactone 25 mg twice a day. The patient is seen today 05/10/2023 in follow-up on the regular medical floor. She is awake and alert in no acute distress. Resting fairly comfortably in bed. Denies any worsening shortness of breath, cough or congestion. She is maintai nancy O2 saturations in the mid 90s on 4 L/m per nasal cannula. She's been afebrile. Hemodynamically stable. She's been up ambulating in her room to the bathroom with assistance. Spending more time up in a chair as encouraged. Urogram CT revealed opacity in the right lower lobe. Large lobulated cyst of the right kidney measuring 7.9 cm. Smaller 2.5 cm cyst of the left kidney. No suspicious renal mass or hydronephrosis is seen. There is bilateral nonobstructive renal calculi measuring up to 9 mm on the right. She continues to deny any flank pain. Urine culture was positive for pseudomonas aeruginosa. Sputum culture with gram-negative bacilli. She is currently on cefepime per ID services. Remains on IV diuretics. Currently in a negative balance. Remains on bronchodilators. Tessalon Perles and Robitussin as needed for her cough. Lovenox for DVT prophylaxis. Objective - Vital Signs Vital signs: Vital Signs Temp 97.6 F 05/10/23 07:24 Pulse 80 05/10/23 07:41 Resp 20 05/10/23 07:24 BP 112/72 05/10/23 07:24 Pulse Ox 95 05/10/23 07:31 FiO2 Intake & Output 05/09/23 05/10/23 05/10/23 18:59 06:59 18:59 Intake Total 700 Output Total 700 950 Balance -700 -250 Weight 127 kg Intake: Intake, IV Titration 100 Amount Cefepime 2 gm In Sodium 100 Chloride 0.9% 100 ml @ 25 mls/hr IVPB Q8HR [facility] Rx# :[id number] Oral 600 Output: Urine 700 950 Other: Voiding Method Diaper Diaper Diaper Incontinent Incontinent Incontinent External Catheter External Catheter External Catheter # Voids 1 1 # Bowel Movements 1 1 1 - Exam GENERAL EXAM: Alert, morbidly obese 72-year-old female, on 4 L nasal cannula, in no apparent distress. HEAD: Normocephalic. EYES: Normal reaction of pupils, equal size. NOSE: Clear with pink turbinates. THROAT: No erythema or exudates. NECK: No masses, no JVD. CHEST: No chest wall deformity. LUNGS: Equal air entry with few scattered rhonchi, crackles in the posterior bases. CVS: S1 and S2 normal with no audible murmur, regular rhythm. ABDOMEN: Obese, normal bowel sounds, no guarding or rigidity. SPINE: No scoliosis or deformity SKIN: His of chronic venous stasis of the bilateral lower extremities with cellulitis. CENTRAL NERVOUS SYSTEM: No focal deficits, tone is normal in all 4 extremities. EXTREMITIES: Cellulitis of the bilateral lower extremities, improving, Matthias wraps in place. No clubbing, no cyanosis. Peripheral pulses are intact. - Labs CBC & Chem 7: 05/09/23 06:00 05/09/23 06:00 Labs: Abnormal Lab Results - Last 24 Hours (Table) 05/09/23 05/09/23 05/09/23 Range/Units 11:53 17:41 20:11 POC Glucose (mg/dL) 249 H 258 H 344 H (70-110) mg/dL 05/10/23 Range/Units 07:22 POC Glucose (mg/dL) 232 H (70-110) mg/dL Microbiology - Last 24 Hours (Table) 05/06/23 17:35 Urine Culture - Final Urine,Voided Pseudomonas aeruginosa Assessment and Plan Assessment: Acute hypoxic respiratory failure, currently on 4 L of oxygen by nasal cannula. Shortness of breath is multifactorial. There is an obvious component of CHF with preserved LV function and severe right-sided heart failure with RV dysfunction and fluid overload. Follow-up chest x-ray shows improvement in the fluid volume overload and interstitial edema. There has been some right lower lobe consolidation. Sputum culture with gram-negative bacilli. Right ventricular failure with severe pulmonary hypertension. Shortness of breath, consistent with fluid overload, given the x-ray changes, lower extremity edema, and elevated BNP. Probable cellulitis, bilateral lower extremities. Treated with Omnicef, so wound shows significant improvement. No evidence of pulmonary embolism or DVT. Urinary tract infection secondary to pseudomonas aeruginosa. Morbid obesity. History of diabetes mellitus. History of vitamin D deficiency. Prior history of DVT. History of osteoarthritis. History of pneumonia. History of kidney stones with intermittent gross hematuria Stress urinary incontinence. Plan: The patient was seen and evaluated Urogram CT, labs and medications reviewed Continue the current treatment plan Initiated on cefepime per ID service Urology is planning outpatient workup Increase the use of the incentive spirometer Increase her activity as tolerated Titrate down the FiO2 as tolerated We will continue to follow This patient was seen independently by the pulmonary nurse practitioner who performed the medical decision making I have personally seen and examined the patient, performed the documentation and the assessment and plan as written. Number of minutes spent on the visit: 23.
[2023-05-10 12:00] LABS: Glucose,Whole Blood 219 mg/dL (70-110)
--- NOTE | 2023-05-10 13:59 | P.PN ---
Subjective Progress Note Date: 05/10/23 Lorene Palma, is a 72-year-old female who presented with multiple complaints that have been occurring over the past few weeks. Patient reports she's had increased swelling to the lower extremity with weeping ulcers. Patient also reports she's had increased shortness of breath and cough. Patient also reports she's had tingling to hands bilaterally but has followed up with orthopedic surgeon outpatient. Patient has a past medical history of diabetes mellitus, DVT, I disorder, osteoporosis, pneumonia and macular degeneration. Chest x-ray completed showing marked interstitial phase pulmonary edema presumably cardiogenic etiology. Lab work revealing elevated d-dimer 2.31. CT of the chest performed showing trace pericardial effusion, scattered reticular infiltrates in the right upper lobe and both lung bases consider viral or interstitial pneumonia. Pulmonary arterial tree is adequately opacified with contrast no large central emboli are visible there is under opacification of a small segmental branch in the left lower lobe laterally no discrete thrombus is visible. This is of questioned significance small segmental pulmonary embolism cannot be excluded. Aortic arch is mildly calcified but nondilated. Will consult pulmonary services. Venous Doppler completed no deep vein thrombosis identified. Troponins negative. BNP elevated at 5250. UA positive for urinary tract infection. At this time patient will be admitted cardiology pulmonary service is consulted. Bilateral lower extremities noted for cellulitis. Infectious disease service is consulted patient started on IV antibiotics. 2-D echo ordered. COVID-19 negative. Patient started on IV Lasix On 04/26/2023 patient was seen and examined on the telemetry floor she is alert and oriented 3 in no apparent distress, she is complaining of bilateral lower extremity pain, site of cellulitis and ulcers, she is also complaining of left shoulder pain and shortness of breath with any activity, otherwise she denies any complaints there is no fever or chills no headache or dizziness no chest pain no cough no nausea or vomiting no abdominal pain no diarrhea no blood in the stools no burning with urination no frequency or urgency and no hematuria. At this time awaiting further recommendation from cardiology. Patient is maintained on IV antibiotic for bilateral lower extremity cellulitis with ulcers, awaiting further input from infectious disease. On 04/27/2023 patient alert and oriented 3. Patient reports improvement with lower infection many pain. Patient remains on IV cefazolin. Tessalon pearls added for cough. Pulmonary cardiology and infectious disease service is consulted. Vital signs temp 98.3, heart rate 97, respiratory rate 18, blood pressure 119/63 with pulse ox of 91% on 2 L On 04/28/2023 patient was seen and examined on the telemetry floor she is alert and oriented 3 in no apparent distress yesterday she had worsening shortness of breath at night with significant drop in her O2 sat duration down to the 70s O2 supplements was increased to 15 L high flow, pulmonary and cardiology are fol lowing patient is improving gradually during the day today, repeat chest x-ray ordered will follow closely. On 04/29/2023 patient is alert and oriented 3. Sliding scale insulin added. 97.9, heart rate 76, respiratory rate 14, blood pressure 112/73 with pulse ox of 94% on 6 L. Patient remains on IV Kefzol and IV steroids On 04/30/2023 patient is alert and oriented 3. Patient reports improvement with shortness of breath and bilateral leg pain. Oxygen decreasing to 5 L. Per pulmonary services steroids have been DC'd. Patient remains on IV antibiotics. Pulmonary, cardiology and infectious disease services following. Current vital signs temp 97.9, heart rate 80, respiratory rate 18, blood pressure 115/73 with pulse ox 93% on 5 L On 05/01/2023 patient was seen and examined on the telemetry floor she is alert and oriented 3 in no apparent distress there is no fever or chills no headache or dizziness she is still having shortness of breath she is still requiring 4 L of oxygen there is no chest pain no cough no nausea or vomiting no abdominal pain no diarrhea and no urinary symptoms, she remains on IV cefazolin for bilateral lower extremity cellulitis with ulcers. On 05/02/2023 patient is alert and oriented 3. Current vital signs temp 98, heart rate 86, respiratory rate 22, blood pressure 128/76 with a pulse ox 92% on 5 L. By mouth Lasix increased to twice daily. Patient remains on IV antibiotics. Infectious disease pulmonary and cardiology services following On 05/03/2023 patient alert and oriented 3 currently sitting up in chair. Patient was started on Diamox for elevated CO2. Patient also started on Aldactone per cardiology services. Pulmonary cardiology service is currently following. Current vital signs temp 97.9, pulse rate 79, respiratory rate 18, blood pressure 122/84 with a pulse ox 90% on 5 L On 05/04/2023 patient was seen and examined on the medical floor, she is alert and oriented 3 in no apparent distress, she is still complaining of shortness of breath with any activity, she is also complaining of bilateral lower extremity edema erythema and tenderness, there is a large ulcer on the right pretibial area. Patient remains on oxygen supplements at 5 L/m, she remains on Lasix and Aldactone and Diamox vital exam reveals a temperature of 98.3 pulse 72 respiration 18 blood pressure 123/71 pulse ox 93% on 5 L nasal cannula, labs to day are still pending. On 05/05/2023 patient was seen and examined on the medical floor she is alert and oriented 3 in no apparent distress there is no fever or chills no headache or dizziness no chest pain no shortness of breath at rest, she is still having significant shortness of breath with any activity she is still maintained on oxygen 3 L nasal cannula, she is still having some cough no nausea or vomiting no abdominal pain no diarrhea and no urinary symptoms. Patient is maintained on Ancef for bilateral lower extremity cellulitis infectious disease following, will recheck labs and follow-up in the am On 05/06/2023 patient's alert and oriented 3. Still complaining of some shortness breath and coughing. Pulmonary services are following. Current vital signs temp 97.9, heart rate 79, respiratory rate 16, blood pressure 107/70 with a pulse ox of 93% on 4 L Chest x-ray done yesterday revealed evidence of cardiomegaly with ongoing interstitial densities and patchy density at the right mid lung which is increasing. On 05/07/2023 patient is alert and oriented 3. Sputum culture ordered per pulmonary. Ultrasound of bladder and abdomen completed results pending. Vital signs temp 98.2, her 85, respiratory rate 16, blood pressure 117/76 with pulse ox of 91% on 4 L. On 05/08/2023 patient is alert and oriented 3. Pulmonary services are following. Orthopedic services and urology services consulted. Patient still complaining of some shortness of breath. Patient denies chest pain. Patient denies nausea vomiting or diarrhea. Patient denies any urinary burning or isaias quency On 05/09/2023 patient's alert and oriented 3. Patient has been started on IV Lasix per pulmonary. orthopedic services evaluated continue conservative management for knee pain. Urology service is following for hematuria. Patient playing of dry cough. Patient denies chest pain. Patient denies nausea vomiting or diarrhea. Patient denies any urinary burning or frequency. On 05/10/2023 patient was seen and examined on the medical floor she is alert and oriented 3 in no apparent distress she is sitting up in a chair she is complaining of cough and shortness of breath with any activity otherwise she denies any complaints there is no fever or chills no headache or dizziness no chest pain or vomiting no abdominal pain no diarrhea no blood in the stools no burning with urination no frequency or urgency and Objective - Vital Signs Vital signs: Vital Signs Temp 97.6 F 05/10/23 07:24 Pulse 80 05/10/23 11:37 Resp 20 05/10/23 07:24 BP 112/72 05/10/23 07:24 Pulse Ox 95 05/10/23 07:31 FiO2 Intake & Output 05/09/23 05/10/23 05/10/23 18:59 06:59 18:59 Intake Total 700 Output Total 700 950 Balance -700 -250 Weight 127 kg Intake: Intake, IV Titration 100 Amount Cefepime 2 gm In Sodium 100 Chloride 0.9% 100 ml @ 25 mls/hr IVPB Q8HR [facility] Rx# :[id number] Oral 600 Output: Urine 700 950 Other: Voiding Method Diaper Diaper Diaper Incontinent Incontinent Incontinent External Catheter External Catheter External Catheter # Voids 1 1 # Bowel Movements 1 1 1 - Exam In general patient is alert and oriented x 3 in no distress HEENT head normocephalic and atraumatic Neck is supple no JVD no goiter no lymphadenopathy no carotid bruit Chest examination is clear to auscultation no crackles no wheezing Cardiac exam reveals regular heart sounds S1 and S2 no gallops no murmurs Abdomen is soft nontender no organomegaly with normal bowel sounds Extremity exam reveals bilateral pretibial erythema with superficial ulcers and 2+ edema Neurological examination reveals no gross focal deficits - Labs CBC & Chem 7: 05/09/23 06:00 05/09/23 06:00 Labs: Abnormal Lab Results - Last 24 Hours (Table) 05/09/23 05/09/23 05/10/23 Range/Units 17:41 20:11 07:22 POC Glucose (mg/dL) 258 H 344 H 232 H (70-110) mg/dL 05/10/23 Range/Units 11:59 POC Glucose (mg/dL) 219 H (70-110) mg/dL Microbiology - Last 24 Hours (Table) 05/06/23 20:00 Gram Stain - Final Sputum Sputum Culture - Final Pseudomonas aeruginosa 05/06/23 17:35 Urine Culture - Final Urine,Voided Pseudomonas aeruginosa Assessment and Plan Assessment: 1. Shortness of breath 2. CHF exacerbation. Noted elevated BNP. 2-D echo ordered patient started on IV Lasix 3. Elevated d-dimer. CTA performed negative venous Doppler 4. Possible pneumonia. Pulmonary service is consulted 5. Urinary tract infection urine culture ordered 6. Lower extremity cellulitis. Patient started on IV antibiotics infectious disease service is consulted 7. History of diabetes mellitus 8. History of DVT 9. History of pneumonia 10. History of macular degeneration 11. Elevated CO2 patient started Diamox 12. Hematuria. Urology service is following 13. Knee pain. Orthopedic service consulted DVT prophylaxis Lovenox. GI prophylaxis Protonix Cardiology, pulmonary and infectious disease service is consulted Patient started on IV antibiotic sputum culture ordered Maintained on by mouth Lasix
--- NOTE | 2023-05-10 14:17 | P.PN ---
Subjective Progress Note Date: 05/07/23 Principal diagnosis: Reason for follow-up is bilateral lower extremity cellulitis Patient is a 72-year-old female with a past medical history significant for diabetes mellitus DVT osteoarthritis pneumonia patient was brought into the hospital for evaluation of increasing swelling to bilateral lower extremity, patient has been diagnosed with bilateral lower extremity cellulitis. On today's evaluation that is 05/07/2023 the patient continues to be afebrile, the patient is breathing comfortably on 4 L nasal cannula oxygen, the patient denies having any chest pain has been complaining of some cough with occasional sputum production, patient denies nausea vomiting or any diarrhea, and no abdominal pain, the patient pain to the lower extremity is currently controlled Patient did have white count is 10.40 creatinine 1.2 As of 05/06/2023 Objective - Vital Signs Vital signs: Vital Signs Temp 98.2 F 05/07/23 07:24 Pulse 80 05/07/23 08:10 Resp 16 05/07/23 07:24 BP 117/76 05/07/23 07:24 Pulse Ox 90 L 05/07/23 08:00 FiO2 Intake & Output 05/06/23 05/07/23 05/07/23 18:59 06:59 18:59 Other: Voiding Method External Catheter Diaper Incontinent External Catheter # Voids 2 - Exam GENERAL DESCRIPTION: An elderly female lying in bed in no distress RESPIRATORY SYSTEM: Unlabored breathing , clear to auscultation anteriorly HEART: S1 S2 regular rate and rhythm , ABDOMEN: Soft , no tenderness EXTREMITIES: Bilateral lower extremity swelling and redness has improved wound on the right leg has decreased in size no slough tissue - Labs CBC & Chem 7: 05/09/23 06:00 05/09/23 06:00 Labs: Abnormal Lab Results - Last 24 Hours (Table) 05/06/23 05/06/23 05/06/23 Range/Units 06:17 06:17 17:16 Carbon Dioxide 17.3 L (21.6-31.8) mmol/L Anion Gap 18.70 H (4.00-12.00) mmol/L Est GFR (CKD-EPI) 48 L (>=60) BUN/Creatinine Ratio 11.58 L (12.00-20.00) Ratio POC Glucose (mg/dL) 207 H (70-110) mg/dL Total Bilirubin <0.2 L (0.3-1.2) mg/dL Alkaline Phosphatase 146 H (41-126) U/L Albumin 3.6 L (3.8-4.9) g/dL Albumin/Globulin Ratio 1.12 L (1.60-3.17) Ratio Procalcitonin 0.10 H (0.02-0.09) ng/mL Urine Appearance (Clear) Urine Protein (Negative) Urine Glucose (UA) (Negative) Urine Ketones (Negative) Urine Blood (Negative) Ur Leukocyte Esterase (Negative) Urine RBC (0-5) /hpf Urine WBC (0-5) /hpf 05/06/23 05/06/23 05/07/23 Range/Units 17:35 20:23 07:21 Carbon Dioxide (21.6-31.8) mmol/L Anion Gap (4.00-12.00) mmol/L Est GFR (CKD-EPI) (>=60) BUN/Creatinine Ratio (12.00-20.00) Ratio POC Glucose (mg/dL) 221 H 160 H (70-110) mg/dL Total Bilirubin (0.3-1.2) mg/dL Alkaline Phosphatase (41-126) U/L Albumin (3.8-4.9) g/dL Albumin/Globulin Ratio (1.60-3.17) Ratio Procalcitonin (0.02-0.09) ng/mL Urine Appearance Slightly Cloudy H (Clear) Urine Protein Trace H (Negative) Urine Glucose (UA) 4+ H (Negative) Urine Ketones 1+ H (Negative) Urine Blood Large H (Negative) Ur Leukocyte Esterase Small H (Negative) Urine RBC 68 H (0-5) /hpf Urine WBC 21 H (0-5) /hpf 05/07/23 Range/Units 12:00 Carbon Dioxide (21.6-31.8) mmol/L Anion Gap (4.00-12.00) mmol/L Est GFR (CKD-EPI) (>=60) BUN/Creatinine Ratio (12.00-20.00) Ratio POC Glucose (mg/dL) 156 H (70-110) mg/dL Total Bilirubin (0.3-1.2) mg/dL Alkaline Phosphatase (41-126) U/L Albumin (3.8-4.9) g/dL Albumin/Globulin Ratio (1.60-3.17) Ratio Procalcitonin (0.02-0.09) ng/mL Urine Appearance (Clear) Urine Protein (Negative) Urine Glucose (UA) (Negative) Urine Ketones (Negative) Urine Blood (Negative) Ur Leukocyte Esterase (Negative) Urine RBC (0-5) /hpf Urine WBC (0-5) /hpf Assessment and Plan (1) Bilateral lower leg cellulitis Current Visit: Yes Status: Acute Code(s): L03.116 - CELLULITIS OF LEFT LOWER LIMB; L03.115 - CELLULITIS OF RIGHT LOWER LIMB SNOMED Code(s): 501581197 (2) Penicillin allergy Current Visit: Yes Status: Acute Code(s): Z88.0 - ALLERGY STATUS TO PENICILLIN SNOMED Code(s): 17558505 (3) Abnormal chest x-ray Current Visit: Yes Status: Acute Code(s): R93.89 - ABNORMAL FINDINGS ON DX IMAGING OF OTH BODY STRUCTURES SNOMED Code(s): 109352830 Plan: 1patient presented to hospital with increasing swelling to bilateral lower extremity patient did have evidence of erythema warmth and tenderness to touch concerning for cellulitis likely from gram-positive skin poli such as trapped less likely MRSA or gram-negative infection 2-patient local wound care continue with silver dressing to the open area followed by Matthias wrap dressing to be changed every 72 hours 3patient is complaining of more respiratory symptoms with cough and sputum production chest x-ray concern for possible developing infiltrate versus fluid, Patient procalcitonin is only 0.10, patient is currently covered with the Omnicef to continue sputum culture has been ordered results will be followed Dictation was produced using [employer] dictation software. please excuse any grammatical, word or spelling errors. Time with Patient: Less than 30
--- NOTE | 2023-05-10 14:18 | P.PN ---
Subjective Progress Note Date: 05/08/23 Principal diagnosis: Reason for follow-up is bilateral lower extremity cellulitis Patient is a 72-year-old female with a past medical history significant for diabetes mellitus DVT osteoarthritis pneumonia patient was brought into the hospital for evaluation of increasing swelling to bilateral lower extremity, patient has been diagnosed with bilateral lower extremity cellulitis. On today's evaluation that is 05/08/2023, the patient denies any fever or any chills, the patient is breathing comfortably on 4 L nasal cannula oxygen air, patient denies chest pain has been complaining of cough with minimal sputum production, patient denies Abdominal pain and denies any nausea/vomiting or diarrhea , the patient pain to the lower extremity is currently controlled, co mplaining of some hematuria for which urology has been consulted The patient white count normal at 9.71, creatinine 0.8 Objective - Vital Signs Vital signs: Vital Signs Temp 97.8 F 05/08/23 11:55 Pulse 83 05/08/23 11:55 Resp 20 05/08/23 11:55 BP 115/71 05/08/23 11:55 Pulse Ox 92 L 05/08/23 11:55 FiO2 Intake & Output 05/07/23 05/08/23 05/08/23 18:59 06:59 18:59 Output Total 600 1300 Balance -600 -1300 Output: Urine 600 1300 Other: Voiding Method Diaper Diaper Incontinent Incontinent External Catheter External Catheter - Exam GENERAL DESCRIPTION: An elderly female lying in bed in no distress RESPIRATORY SYSTEM: Unlabored breathing , clear to auscultation anteriorly HEART: S1 S2 regular rate and rhythm , ABDOMEN: Soft , no tenderness EXTREMITIES: Bilateral lower extremity swelling and redness has improved wound on the right leg has decreased in size no slough tissue - Labs CBC & Chem 7: 05/09/23 06:00 05/09/23 06:00 Labs: Abnormal Lab Results - Last 24 Hours (Table) 05/07/23 05/07/23 05/08/23 Range/Units 17:20 20:14 06:00 MCV 99.1 H (80.0-97.0) FL MCHC 29.3 L (32.0-37.0) g/dL RDW 15.1 H (11.5-14.5) % Immature Gran # 0.09 H (0.00-0.04) X 10*3/uL Eosinophils # 0.56 H (0.04-0.35) X 10*3/uL BUN (9.0-27.0) mg/dL BUN/Creatinine Ratio (12.00-20.00) Ratio Glucose (70-110) mg/dL POC Glucose (mg/dL) 181 H 233 H (70-110) mg/dL AST (13-35) U/L ALT (8-44) U/L Total Protein (6.2-8.2) g/dL Albumin (3.8-4.9) g/dL Albumin/Globulin Ratio (1.60-3.17) Ratio 05/08/23 05/08/23 05/08/23 Range/Units 06:00 07:44 11:59 MCV (80.0-97.0) FL MCHC (32.0-37.0) g/dL RDW (11.5-14.5) % Immature Gran # (0.00-0.04) X 10*3/uL Eosinophils # (0.04-0.35) X 10*3/uL BUN 30.4 H (9.0-27.0) mg/dL BUN/Creatinine Ratio 38.00 H (12.00-20.00) Ratio Glucose 184 H (70-110) mg/dL POC Glucose (mg/dL) 163 H 165 H (70-110) mg/dL AST 11 L (13-35) U/L ALT 6 L (8-44) U/L Total Protein 6.1 L (6.2-8.2) g/dL Albumin 3.4 L (3.8-4.9) g/dL Albumin/Globulin Ratio 1.26 L (1.60-3.17) Ratio Microbiology - Last 24 Hours (Table) 05/06/23 17:35 Urine Culture - Preliminary Urine,Voided Gram Neg Bacilli Assessment and Plan (1) Bilateral lower leg cellulitis Current Visit: Yes Status: Acute Code(s): L03.116 - CELLULITIS OF LEFT LOWER LIMB; L03.115 - CELLULITIS OF RIGHT LOWER LIMB SNOMED Code(s): 183417181 (2) Penicillin allergy Current Visit: Yes Status: Acute Code(s): Z88.0 - ALLERGY STATUS TO PENICILL IN SNOMED Code(s): 23610903 (3) Abnormal chest x-ray Current Visit: Yes Status: Acute Code(s): R93.89 - ABNORMAL FINDINGS ON DX IMAGING OF OTH BODY STRUCTURES SNOMED Code(s): 962436988 Plan: 1patient presented to hospital with increasing swelling to bilateral lower extremity patient did have evidence of erythema warmth and tenderness to touch concerning for cellulitis likely from gram-positive skin poli such as trapped less likely MRSA or gram-negative infection 2-patient local wound care continue with silver dressing to the open area followed by Matthias wrap dressing to be changed every 72 hours 3patient is complaining of more respiratory symptoms with cough and sputum production chest x-ray concern for possible developing infiltrate versus fluid, Patient procalcitonin 0.10, white count is normal at 9.71 creatinine 0.8 patient to continue with Omnicef multiple questions concern answered Dictation was produced using [employer] dictation software. please excuse any grammatical, word or spelling errors. Time with Patient: Less than 30
--- NOTE | 2023-05-10 14:20 | P.PN ---
Subjective Progress Note Date: 05/09/23 Principal diagnosis: Reason for follow-up is bilateral lower extremity cellulitis Patient is a 72-year-old female with a past medical history significant for diabetes mellitus DVT osteoarthritis pneumonia patient was brought into the hospital for evaluation of increasing swelling to bilateral lower extremity, patient has been diagnosed with bilateral lower extremity cellulitis. On today's evaluation that is 05/09/2023 patient remains to be afebrile, patient is currently on a 4 L nasal cannula oxygen patient denies having any chest pain currently complains of cough with occasional sputum production denies any nausea vomiting no abdominal pain no diarrhea and no worsening pain to the right lower extremity. Patient white count slightly up to 14.93 creatinine is 1.0 Objective - Vital Signs Vital signs: Vital Signs Temp 98.5 F 05/09/23 07:03 Pulse 84 05/09/23 07:40 Resp 18 05/09/23 07:03 BP 128/66 05/09/23 07:03 Pulse Ox 95 05/09/23 07:28 FiO2 Intake & Output 05/08/23 05/09/23 05/09/23 18:59 06:59 18:59 Output Total 900 1100 Balance -900 -1100 Output: Urine 900 1100 Other: Voiding Method Diaper Diaper Incontinent Incontinent External Catheter External Catheter # Voids 1 - Exam GENERAL DESCRIPTION: An elderly female lying in bed in no distress RESPIRATORY SYSTEM: Unlabored breathing , clear to auscultation anteriorly HEART: S1 S2 regular rate and rhythm , ABDOMEN: Soft , no tenderness EXTREMITIES: Right lower extremity wound is healed swelling redness has improved no drainage - Labs CBC & Chem 7: 05/09/23 06:00 05/09/23 06:00 Labs: Abnormal Lab Results - Last 24 Hours (Table) 05/08/23 05/08/23 05/08/23 Range/Units 11:59 17:24 20:17 WBC (4.50-10.00) X 10*3/uL MCHC (32.0-37.0) g/dL RDW (11.5-14.5) % Immature Gran # (0.00-0.04) X 10*3/uL Neutrophils # (1.80-7.70) X 10*3/uL Eosinophils # (0.04-0.35) X 10*3/uL BUN (9.0-27.0) mg/dL BUN/Creatinine Ratio (12.00-20.00) Ratio Glucose (70-110) mg/dL POC Glucose (mg/dL) 165 H 173 H 235 H (70-110) mg/dL ALT (8-44) U/L Albumin (3.8-4.9) g/dL Albumin/Globulin Ratio (1.60-3.17) Ratio 05/09/23 05/09/23 05/09/23 Range/Units 06:00 06:00 07:00 WBC 14.93 H (4.50-10.00) X 10*3/uL MCHC 29.9 L (32.0-37.0) g/dL RDW 15.1 H (11.5-14.5) % Immature Gran # 0.11 H (0.00-0.04) X 10*3/uL Neutrophils # 12.10 H (1.80-7.70) X 10*3/uL Eosinophils # 0.64 H (0.04-0.35) X 10*3/uL BUN 29.0 H (9.0-27.0) mg/dL BUN/Creatinine Ratio 29.00 H (12.00-20.00) Ratio Glucose 188 H (70-110) mg/dL POC Glucose (mg/dL) 177 H (70-110) mg/dL ALT 7 L (8-44) U/L Albumin 3.6 L (3.8-4.9) g/dL Albumin/Globulin Ratio 1.24 L (1.60-3.17) Ratio Microbiology - Last 24 Hours (Table) 05/06/23 20:00 Gram Stain - Preliminary Sputum Sputum Culture - Preliminary Gram Neg Bacilli 05/06/23 17:35 Urine Culture - Preliminary Urine,Voided Gram Neg Bacilli Assessment and Plan (1) Bilateral lower leg cellulitis Current Visit: Yes Status: Acute Code(s): L03.116 - CELLULITIS OF LEFT LOWER LIMB; L03.115 - CELLULITIS OF RIGHT LOWER LIMB SNOMED Code(s): 428650034 (2) Penicillin allergy Current Visit: Yes Status: Acute Code(s): Z88.0 - ALLERGY STATUS TO PENICILLIN SNOMED Code(s): 21378104 (3) Abnormal chest x-ray Current Visit: Yes Status: Acute Code(s): R93.89 - ABNORMAL FINDINGS ON DX IMAGING OF OTH BODY STRUCTURES SNOMED Code(s): 509918967 (4) UTI (urinary tract infection) Current Visit: Yes Status: Acute Code(s): N39.0 - URINARY TRACT INFECTION, SITE NOT SPECIFIED SNOMED Code(s): 59284673 Plan: 1patient presented to hospital with increasing swelling to bilateral lower extremity patient did have evidence of erythema warmth and tenderness to touch concerning for cellulitis likely from gram-positive skin poli such as trapped less likely MRSA or gram-negative infection 2-patient local wound care continue with silver dressing to the open area followed by Matthias wrap dressing to be changed every 72 hours 3patient did have hematuria with evidence of bilateral renal stones being monitored by urology urine is not growing Pseudomonas and the sputum is showing gram-negative bacilli with ID sensitivities pending we will discontinue Omnicef and start the patient on cefepime discussed with the admitting team Dictation was produced using [employer] dictation software. please excuse any grammatical, word or spelling errors. Time with Patient: Less than 30
--- NOTE | 2023-05-10 14:23 | P.PN ---
Subjective Progress Note Date: 05/10/23 Principal diagnosis: Reason for follow-up is bilateral lower extremity cellulitis Patient is a 72-year-old female with a past medical history significant for diabetes mellitus DVT osteoarthritis pneumonia patient was brought into the hospital for evaluation of increasing swelling to bilateral lower extremity, patient has been diagnosed with bilateral lower extremity cellulitis. On today's evaluation that is 05/10/2023 patient continues to be afebrile, patient remains to be on a 4 L nasal cannula oxygen still complaining of shortness of breath on exertion patient denies having any chest pain currently complains of cough with occasional sputum production denies any nausea vomiting no abdominal pain no diarrhea, pain to the right lower extremity as decreased in intensity. Patient white count slightly up to 14.93 creatinine is 1.0 as of 05/09/2023 Objective - Vital Signs Vital signs: Vital Signs Temp 97.6 F 05/10/23 07:24 Pulse 80 05/10/23 07:41 Resp 20 05/10/23 07:24 BP 112/72 05/10/23 07:24 Pulse Ox 95 05/10/23 07:31 FiO2 Intake & Output 05/09/23 05/10/23 05/10/23 18:59 06:59 18:59 Intake Total 700 Output Total 700 950 Balance -700 -250 Weight 127 kg Intake: Intake, IV Titration 100 Amount Cefepime 2 gm In Sodium 100 Chloride 0.9% 100 ml @ 25 mls/hr IVPB Q8HR [facility] Rx# :[id number] Oral 600 Output: Urine 700 950 Other: Voiding Method Diaper Diaper Diaper Incontinent Incontinent Incontinent External Catheter External Catheter External Catheter # Voids 1 1 # Bowel Movements 1 1 1 - Exam GENERAL DESCRIPTION: An elderly female lying in bed in no distress RESPIRATORY SYSTEM: Unlabored breathing , clear to auscultation anteriorly HEART: S1 S2 regular rate and rhythm , ABDOMEN: Soft , no tenderness EXTREMITIES: Bilateral lower extremity covered with compression stocking with no drainage - Labs CBC & Chem 7: 05/09/23 06:00 05/09/23 06:00 Labs: Abnormal Lab Results - Last 24 Hours (Table) 05/09/23 05/09/23 05/09/23 Range/Units 11:53 17:41 20:11 POC Glucose (mg/dL) 249 H 258 H 344 H (70-110) mg/dL 05/10/23 Range/Units 07:22 POC Glucose (mg/dL) 232 H (70-110) mg/dL Microbiology - Last 24 Hours (Table) 05/06/23 17:35 Urine Culture - Final Urine,Voided Pseudomonas aeruginosa Assessment and Plan (1) Bilateral lower leg cellulitis Current Visit: Yes Status: Acute Code(s): L03.116 - CELLULITIS OF LEFT LOWER LIMB; L03.115 - CELLULITIS OF RIGHT LOWER LIMB SNOMED Code(s): 157740329 (2) Penicillin allergy Current Visit: Yes Status: Acute Code(s): Z88.0 - ALLERGY STATUS TO PENICILLIN SNOMED Code(s): 03651293 (3) Abnormal chest x-ray Current Visit: Yes Status: Acute Code(s): R93.89 - ABNORMAL FINDINGS ON DX IMAGING OF OTH BODY STRUCTURES SNOMED Code(s): 139585564 Plan: 1patient presented to hospital with increasing swelling to bilateral lower extremity patient did have evidence of erythema warmth and tenderness to touch concerning for cellulitis likely from gram-positive skin poli such as trapped less likely MRSA or gram-negative infection 2-patient local wound care continue with silver dressing to the open area followed by Matthias wrap dressing to be changed every 72 hours 3patient did have hematuria with evidence of bilateral renal stones being monitored by urology urine is growing Pseudomonas and the sputum is showing gram-negative bacilli with ID sensitivities pending, patient will continue with the cefepime while waiting for the sputum culture to finalize to determine her discharge antibiotics Dictation was produced using [employer] dictation software. please excuse any grammatical, word or spelling errors. Time with Patient: Less than 30
[2023-05-10 17:12] LABS: Glucose,Whole Blood 277 mg/dL (70-110)
[2023-05-10] MEDS: traMADol 50 MG TAB PO PRN (17:35)
[2023-05-10 20:20] LABS: Glucose,Whole Blood 314 mg/dL (70-110)
[2023-05-10] MEDS: OXYBUTYNIN 10 MG TAB.ER.24 PO SCH (20:53)
[2023-05-11] MEDS: FUROSEMIDE 10 MG/ML 4 ML VIAL IV SCH ×3 (03:43→20:43)
[2023-05-11 07:17] LABS: Glucose,Whole Blood 184 mg/dL (70-110)
[2023-05-11] MEDS: INSULIN ASPART (NovoLOG) 100 UNIT/ML VIAL SQ SCH ×4 (07:52→20:28)
[2023-05-11] MEDS: IPRATROPIUM-ALBUTEROL 3 ML NEB INHALATION SCH ×4 (08:16→21:38)
[2023-05-11] MEDS: ASPIRIN 81 MG PO SCH ×2 (09:18→20:43)
[2023-05-11] MEDS: METOPROLOL SUCCINATE (ER) 25 MG TAB.ER.24H PO SCH ×2 (09:19→20:43)
[2023-05-11] MEDS: BENZONATATE 100 MG CAP PO SCH ×3 (09:19→21:07)
[2023-05-11] MEDS: DAPAGLIFLOZIN PROPANEDIOL 10 MG TABLET PO SCH (09:19)
[2023-05-11] MEDS: metFORMIN 500 MG TAB PO SCH ×2 (09:19→20:43)
[2023-05-11] MEDS: ENOXAPARIN 40 MG/0.4 ML SYRINGE SQ SCH (09:19)
[2023-05-11] MEDS: SPIRONOLACTONE 25 MG TAB PO SCH ×2 (09:19→20:43)
[2023-05-11] MEDS: ATORVASTATIN 20 MG TAB PO SCH (09:19)
[2023-05-11] MEDS: CHOLECALCIFEROL 25 MCG (1000 IU) TABLET PO SCH ×2 (09:19→20:43)
[2023-05-11] MEDS: PANTOPRAZOLE 40 MG TABLET PO SCH (09:19)
[2023-05-11] MEDS: NYSTATIN 100,000 UNIT/GM POWD 15 GM TOPICAL SCH ×3 (09:21→21:51)
[2023-05-11] MEDS: CEFEPIME 2 GM in SODIUM CHLORIDE 0.9% 100 ML IVPB SCH ×2 (09:42→20:44)
--- NOTE | 2023-05-11 09:59 | P.PN ---
Subjective Progress Note Date: 05/11/23 Lorene Palma, is a 72-year-old female who presented with multiple complaints that have been occurring over the past few weeks. Patient reports she's had increased swelling to the lower extremity with weeping ulcers. Patient also reports she's had increased shortness of breath and cough. Patient also reports she's had tingling to hands bilaterally but has followed up with orthopedic surgeon outpatient. Patient has a past medical history of diabetes mellitus, DVT, I disorder, osteoporosis, pneumonia and macular degeneration. Chest x-ray completed showing marked interstitial phase pulmonary edema presumably cardiogenic etiology. Lab work revealing elevated d-dimer 2.31. CT of the chest performed showing trace pericardial effusion, scattered reticular infiltrates in the right upper lobe and both lung bases consider viral or interstitial pneumonia. Pulmonary arterial tree is adequately opacified with contrast no large central emboli are visible there is under opacification of a small segmental branch in the left lower lobe laterally no discrete thrombus is visible. This is of questioned significance small segmental pulmonary embolism cannot be excluded. Aortic arch is mildly calcified but nondilated. Will consult pulmonary services. Venous Doppler completed no deep vein thrombosis i dentified. Troponins negative. BNP elevated at 5250. UA positive for urinary tract infection. At this time patient will be admitted cardiology pulmonary service is consulted. Bilateral lower extremities noted for cellulitis. Infectious disease service is consulted patient started on IV antibiotics. 2-D echo ordered. COVID-19 negative. Patient started on IV Lasix On 04/26/2023 patient was seen and examined on the telemetry floor she is alert and oriented 3 in no apparent distress, she is complaining of bilateral lower extremity pain, site of cellulitis and ulcers, she is also complaining of left shoulder pain and shortness of breath with any activity, otherwise she denies any complaints there is no fever or chills no headache or dizziness no chest pain no cough no nausea or vomiting no abdominal pain no diarrhea no blood in the stools no burning with urination no frequency or urgency and no hematuria. At this time awaiting further recommendation from cardiology. Patient is maintained on IV antibiotic for bilateral lower extremity cellulitis with ulcers, awaiting further input from infectious disease. On 04/27/2023 patient alert and oriented 3. Patient reports improvement with lower infection many pain. Patient remains on IV cefazolin. Tessalon pearls added for cough. Pulmonary cardiology and infectious disease service is consulted. Vital signs temp 98.3, heart rate 97, respiratory rate 18, blood pressure 119/63 with pulse ox of 91% on 2 L On 04/28/2023 patient was seen and examined on the telemetry floor she is alert and oriented 3 in no apparent distress yesterday she had worsening shortness of breath at night with significant drop in her O2 sat duration down to the 70s O2 supplements was increased to 15 L high flow, pulmonary and cardiology are foll owing patient is improving gradually during the day today, repeat chest x-ray ordered will follow closely. On 04/29/2023 patient is alert and oriented 3. Sliding scale insulin added. 97.9, heart rate 76, respiratory rate 14, blood pressure 112/73 with pulse ox of 94% on 6 L. Patient remains on IV Kefzol and IV steroids On 04/30/2023 patient is alert and oriented 3. Patient reports improvement with shortness of breath and bilateral leg pain. Oxygen decreasing to 5 L. Per pulmonary services steroids have been DC'd. Patient remains on IV antibiotics. Pulmonary, cardiology and infectious disease services following. Current vital signs temp 97.9, heart rate 80, respiratory rate 18, blood pressure 115/73 with pulse ox 93% on 5 L On 05/01/2023 patient was seen and examined on the telemetry floor she is alert and oriented 3 in no apparent distress there is no fever or chills no headache or dizziness she is still having shortness of breath she is still requiring 4 L of oxygen there is no chest pain no cough no nausea or vomiting no abdominal pain no diarrhea and no urinary symptoms, she remains on IV cefazolin for bilateral lower extremity cellulitis with ulcers. On 05/02/2023 patient is alert and oriented 3. Current vital signs temp 98, heart rate 86, respiratory rate 22, blood pressure 128/76 with a pulse ox 92% on 5 L. By mouth Lasix increased to twice daily. Patient remains on IV antibiotics. Infectious disease pulmonary and cardiology services following On 05/03/2023 patient alert and oriented 3 currently sitting up in chair. Patient was started on Diamox for elevated CO2. Patient also started on Aldactone per cardiology services. Pulmonary cardiology service is currently following. Current vital signs temp 97.9, pulse rate 79, respiratory rate 18, blood pressure 122/84 with a pulse ox 90% on 5 L On 05/04/2023 patient was seen and examined on the medical floor, she is alert and oriented 3 in no apparent distress, she is still complaining of shortness of breath with any activity, she is also complaining of bilateral lower extremity edema erythema and tenderness, there is a large ulcer on the right pretibial area. Patient remains on oxygen supplements at 5 L/m, she remains on Lasix and Aldactone and Diamox vital exam reveals a temperature of 98.3 pulse 72 respiration 18 blood pressure 123/71 pulse ox 93% on 5 L nasal cannula, labs tod ay are still pending. On 05/05/2023 patient was seen and examined on the medical floor she is alert and oriented 3 in no apparent distress there is no fever or chills no headache or dizziness no chest pain no shortness of breath at rest, she is still having significant shortness of breath with any activity she is still maintained on oxygen 3 L nasal cannula, she is still having some cough no nausea or vomiting no abdominal pain no diarrhea and no urinary symptoms. Patient is maintained on Ancef for bilateral lower extremity cellulitis infectious disease following, will recheck labs and follow-up in the am On 05/06/2023 patient's alert and oriented 3. Still complaining of some shortness breath and coughing. Pulmonary services are following. Current vital signs temp 97.9, heart rate 79, respiratory rate 16, blood pressure 107/70 with a pulse ox of 93% on 4 L Chest x-ray done yesterday revealed evidence of cardiomegaly with ongoing interstitial densities and patchy density at the right mid lung which is increasing. On 05/07/2023 patient is alert and oriented 3. Sputum culture ordered per pulmonary. Ultrasound of bladder and abdomen completed results pending. Vital signs temp 98.2, her 85, respiratory rate 16, blood pressure 117/76 with pulse ox of 91% on 4 L. On 05/08/2023 patient is alert and oriented 3. Pulmonary services are following. Orthopedic services and urology services consulted. Patient still complaining of some shortness of breath. Patient denies chest pain. Patient denies nausea vomiting or diarrhea. Patient denies any urinary burning or freq uency On 05/09/2023 patient's alert and oriented 3. Patient has been started on IV Lasix per pulmonary. orthopedic services evaluated continue conservative management for knee pain. Urology service is following for hematuria. Patient playing of dry cough. Patient denies chest pain. Patient denies nausea vomiting or diarrhea. Patient denies any urinary burning or frequency. On 05/10/2023 patient was seen and examined on the medical floor she is alert and oriented 3 in no apparent distress she is sitting up in a chair she is complaining of cough and shortness of breath with any activity otherwise she denies any complaints there is no fever or chills no headache or dizziness no chest pain or vomiting no abdominal pain no diarrhea no blood in the stools no burning with urination no frequency or urgency and On 05/11/2023 patient's alert and oriented 3. Patient remains on IV Maxipime per infectious disease awaiting culture finalization. Patient also proved for home oxygen. continues to express that she is not ready to go home due to continued cough. Patient remains on IV Lasix. Patient denies chest pain. Patient denies nausea vomiting or diarrhea. Patient denies any urinary burning or frequency. Current vital signs temp 98.2, pulse rate 80, respiratory rate 20, blood pressure 144/76 with pulse is 92% on 4 L Objective - Vital Signs Vital signs: Vital Signs Temp 98.2 F 05/11/23 07:18 Pulse 80 05/11/23 07:18 Resp 20 05/11/23 07:18 BP 144/76 05/11/23 07:18 Pulse Ox 93 L 05/11/23 07:18 FiO2 Intake & Output 05/10/23 05/11/23 05/11/23 18:59 06:59 18:59 Intake Total 100 Output Total 700 1200 Balance -600 -1200 Weight 127 kg Intake: Intake, IV Titration 100 Amount Cefepime 2 gm In Sodium 100 Chloride 0.9% 100 ml @ 25 mls/hr IVPB Q8HR [facility] Rx# :[id number] Output: Urine 700 1200 Other: Voiding Method Diaper Diaper Diaper Incontinent Incontinent Incontinent External Catheter External Catheter External Catheter # Voids 1 # Bowel Movements 1 1 - Exam In general patient is alert and oriented x 3 in no distress HEENT head normocephalic and atraumatic Neck is supple no JVD no goiter no lymphadenopathy no carotid bruit Chest examination is clear to auscultation no crackles no wheezing Cardiac exam reveals regular heart sounds S1 and S2 no gallops no murmurs Abdomen is soft nontender no organomegaly with normal bowel sounds Extremity exam reveals bilateral pretibial erythema with superficial ulcers and 2+ edema Neurological examination reveals no gross focal deficits - Labs CBC & Chem 7: 05/09/23 06:00 05/09/23 06:00 Labs: Abnormal Lab Results - Last 24 Hours (Table) 05/10/23 05/10/23 05/10/23 Range/Units 11:59 17:11 20:18 POC Glucose (mg/dL) 219 H 277 H 314 H (70-110) mg/dL 05/11/23 Range/Units 07:16 POC Glucose (mg/dL) 184 H (70-110) mg/dL Microbiology - Last 24 Hours (Table) 05/06/23 20:00 Gram Stain - Final Sputum Sputum Culture - Final Pseudomonas aeruginosa Assessment and Plan Assessment: 1. Shortness of breath 2. CHF exacerbation. Noted elevated BNP. 2-D echo ordered patient started on IV Lasix 3. Elevated d-dimer. CTA performed negative venous Doppler 4. Possible pneumonia. Pulmonary service is consulted 5. Urinary tract infection urine culture ordered 6. Lower extremity cellulitis. Patient started on IV antibiotics infectious disease service is consulted 7. History of diabetes mellitus 8. History of DVT 9. History of pneumonia 10. History of macular degeneration 11. Elevated CO2 patient started Diamox DVT prophylaxis Lovenox. GI prophylaxis Protonix Cardiology, pulmonary and infectious disease service is consulted Patient started on IV antibiotic Maintained on by mouth Lasix
--- NOTE | 2023-05-11 10:46 | P.PN ---
Subjective Progress Note Date: 05/11/23 72-year-old female seen in the emergency department, room 15. She's here with her . She apparently presented to the emergency department, on April 24, with multiple complaints including leg swelling, shortness of breath, cough, and generally just not feeling well. She also has some tingling to her hands bilaterally, and apparently has been seen by one of the hand surgeons. The patient is laying flat in bed. She is on a couple liters of oxygen. She's not receiving any IV fluids. She tells me that she has cellulitis of the lower extremities. She is a rather large woman. She also tells me that her only major medical problem is diabetes mellitus. Although, she apparently has a hist ory of DVT, osteoarthritis, and pneumonia. She also has a previous history of kidney stones, status post lithotripsy. Current labs include a white count 6.6, hemoglobin 12.9, hematocrit 42.6, and a platelet count of 101,000. D-dimer is 2.31. Venous blood gases showed CO2 49 and a pH is 7.36. Sodium 140, potassium 4.7, chlorides 105, CO2 25, BUN 22, creatinine 0.69. The N-terminal proBNP is e levated at 5250. Troponins were negative 2. Urine showed 2+ protein and moderate blood and large leukocyte esterase, 93 RBCs 74 WBCs, rare bacteria, and occasional mucus. Testing for coronavirus was negative. Chest x-ray showed changes consistent with pulmonary edema/fluid overload. CT angiogram was negative for pulmonary embolism. Doppler of the lower semis was negative for DVT. Progress note dated 04/26/2023. 72-year-old obese female seen yesterday in the emergency department. Today, she is seen in room 368. The patient's currently on 3 L of oxygen. She is receiving Lasix and her fluid overload, and Ancef, for her lower extremity edema. Her lower extremity edema is a bit better today. She does feel a bit better today, less short of breath. Current laboratory data includes a glucose of 181. Testing for harper virus was negative. Troponin was less than 0.012, 2. Progress note dated 04/27/2023. 73-year-old female initially seen in the emergency department, but is seen in room 368 today. She continues on oxygen at 3 L. No IV fluids. For her cough, we ordered some Tessalon Perles. In addition, she continues on Ancef for her bilateral lower extremity cellulitis. Also, she is receiving diuretics, for her pulmonary edema. Today's laboratory data includes a glucose of 137. Testing for harper virus was negative. Blood cultures are negative. On today's evaluation of 04/28/2023, I'm seeing the patient for a follow-up. She is on 10 L of oxygen by nasal cannula. She is in for increased lower extremity edema, hypoxic respiratory failure, lower extremity infection. The patient has some mild cardiomegaly on her CT angiogram. No evidence of any pulmonary embolism. Her echocardiogram showed LV function with ejection fraction of 50-55%. She has severe RV dilatation and severe pulmonary hypertension and she may have an underlying obstructive sleep apnea. No recent CBC, most recent electrolytes show a BUN of 34 with a creatinine 1.1 and sodium level is at 138. She is currently on oxygen at 10 L she is on IV cefazolin. She is also on oral Lasix 40 mg by mouth daily. She remains on bronchodilators with albuterol HFA, IV Solu-Medrol 20 mg every 8 hours and Lovenox 40 mg subcu portably prophylaxis. On 04/29/2023, the patient is sitting up in a recliner. Doing well. She is down to 6 L of oxygen nasal cannula. She is still on Lasix. She is in a negative fluid balance. Labs from today are still pending. No other significant events overnight. No angina. No palpitations. No chest pain. Remains on albuterol HFA, IV Solu-Medrol 20 mg every 8 hours then Lovenox 40 mg subcu for DVT prophylaxis. On 04/30/2023, the patient is being seen for a follow-up. Doing well. No new complaints. The patient has been weaned down to 5 L of oxygen by nasal cannula with a pulse ox of 95%. The patient is diuresing adequately and the patient is a negative fluid balance of at least 2 L over the past 24 hours. The patient is currently on Lasix 40 mg by mouth daily. The patient is still on IV cefazolin regarding lower extremity cellulitis. Edema still present in the legs bilaterally. Blood work from today shows a BUN of 44 with a creatinine of 0.7. Sodium level is at 138. The risks count of 9.3 with a hemoglobin 15.1 and a platelet count of 243. No chest pain. No interval worsening shortness of breath. On 05/01/2023, the patient has been weaned down to 5 L. Her current pulse ox is 93%. She is making excellent urine output. Overall fluid balance is -2 L over the past 24 hours. She remains on Lasix 40 mg by mouth and the dose was increased up to twice a day. She remains on IV cefazolin. Lower extremity cellulitis is also improving. Mentally she is awake and alert and communicating. She is trying to increase her mobility. She is working with physical therapy. Blood work shows a sodium level of 141, BUN is 34 with a creatinine of 0.6. LFTs are normal. The viscosity 0.8 with a hemoglobin 15.4 and a platelet count of 178. on today's evaluation of 05/02/2023, the patient is still on 5 L of O2 nasal cannula. She is producing excellent urine output. There is significant improvement in lower extremity edema and the wound over the right lower extremity so is essentially eating at this point in time. There is no active drainage. The wound is very healthy-looking. Edema lower extremity is also improving. Meanwhile, the patient remains on oral Lasix. Fluid balance is negative at least 2 L over the past 24 hours.White cell count of 8.2 with a hemoglobin of 13.4 and a platelet count of 181. BUN is at 28 with a creatinine of 0.6 and a sodium level is at 140. Potassium levels at 4.0. The patient re atif on IV cefazolin. The patient is on Lasix 40 mg by mouth twice a day. Rest of the medications remain unchanged. The patient and KVO. We will balance is -2.3 L over the past 24 hours. On 05/03/2023, no new complaints. The patient is sitting up on a chair. She is currently on room air oxygen. Oxygen saturation is improved. The patient was transferred to the [facility]. The fluid balance is negative at least 2.3 L. The labs are all stable, the viscosity 11.1, he was 13.8, serum bicarbonate is 41, BUN is 28 with a creatinine of 0.66 05/04/2023, condition is stable. Still on 5 L of O2 nasal cannula. She patient continues to the stable and saturations improved. We should be able to wean down FiO2. No new complaints otherwise for now. The patient is seen today 05/05/2023 in follow-up on the regular medical floor. She is currently resting in bed. Awake and alert in no acute distress. She denies any worsening shortness of breath, cough or congestion. He is maintainin g O2 saturation in the 90s on 3 L/m per nasal cannula. She's afebrile. Hemodynamically stable. Blood cultures revealed no growth. White count 12.2. Hemoglobin 13.5. Platelets 232. Sodium 138. Potassium 3.7. Bicarb 25. BUN 29. Creatinine 0.83. Glucose 173. She is continued on DuoNeb inhalations. Remains on antibiotics in the form of cefazolin. Continued on oral diuretics. Currently in a negative balance. The patient is seen today 05/06/2023 in follow-up on the regular medical floor. She is currently laying flat in bed. Awake and alert in no acute distress. Denies any worsening shortness of breath. She continues with a dry nonproductive cough. She is maintaining good O2 saturations in the 90s on 4 L/m per nasal cannula. She's afebrile. Hemodynamically stable. Follow-up chest x- ray shows mild cardiomegaly and ongoing interstitial densities. Mild pulmonary vascular congestion. Patchy density in the right midlung. I count 10.4. Hemoglobin 12.9. Platelets 218. Glucose 159. She continues on bronchodilators. Oral diuretics. Lovenox for DVT prophylaxis. Remains on cefazolin per ID services. The patient is seen today 05/07/2023 in follow-up on the regular medical floor. She is sitting up in bed. Awake and alert. Having breakfast. Denies any worsening shortness of breath, cough or congestion. Maintaining O2 saturations in the 90s on 4 L/m per nasal cannula. She's been afebrile. Hemodynamically stable. Glucose 156. She remains on Diamox, Lasix, Aldactone. Continued on bronchodilators, Tessalon Perles. Lovenox for DVT prophylaxis. Antibiotics in the form of Omnicef. The patient is seen today 05/08/2023 in follow-up on the regular medical floor. She remains awake and alert in no acute distress. Continues with a cough with occasional yellow phlegm. No fever chills. No chest pain. Pro-calcitonin was 0.10. She continues to maintain good O2 saturations in the 90s on 4 L/m per nasal cannula. She's been afebrile. Hemodynamically stable. During culture positive for gram-negative bacilli. Blood cultures revealed no growth. Follow- up chest x-ray today continues to show evidence of fluid volume overload. Count 9.7. Hemoglobin 12.7. Platelets 249. Sodium 140. Potassium 4.0. Bicarb 27. BUN 30. Creatinine 0.8. Glucose 184. AST 11. ALT 6. He is continued on DuoNeb inhalations, Tessalon Perles, antibiotics in the form of Omnicef. She is on Lasix 40 mg by mouth twice a day long with Aldactone 25 mg daily. The patient is seen today 05/09/2023 in follow-up on the regular medical floor. She is resting comfortably in bed. Awake and alert in no acute distress. Maintaining good O2 saturations in the 90s on 4 L/m per nasal cannula. Today's chest x-ray continues to show cardiomegaly there is improvement in the pulmonary venous congestion. She remains on IV diuretics. Currently in a -2 L balance. She had undergone urogram CT today. Results are pending. Yesterday she had some complaints of right knee pain. X-ray revealed no acute osseous pathology. Urine culture had been positive for pseudomonas aeruginosa. Sputum culture showing gram-negative bacilli. White count 14.9. Hemoglobin 13.3. Platelets 277. Sodium 140. Potassium 4.1. Bicarb 29. BUN 29. Creatinine 1.0. Glucose 188. ProBNP 1320. She is continued on DuoNeb inhalations, Tessalon Perles, antibiotics in the form of Omnicef. She is on Lasix 40 mg IV 8 hours, Aldactone 25 mg twice a day. The patient is seen today 05/10/2023 in follow-up on the regular medical floor. She is awake and alert in no acute distress. Resting fairly comfortably in bed. Denies any worsening shortness of breath, cough or congestion. She is maintai nancy O2 saturations in the mid 90s on 4 L/m per nasal cannula. She's been afebrile. Hemodynamically stable. She's been up ambulating in her room to the bathroom with assistance. Spending more time up in a chair as encouraged. Urogram CT revealed opacity in the right lower lobe. Large lobulated cyst of the right kidney measuring 7.9 cm. Smaller 2.5 cm cyst of the left kidney. No suspicious renal mass or hydronephrosis is seen. There is bilateral nonobstructive renal calculi measuring up to 9 mm on the right. She continues to deny any flank pain. Urine culture was positive for pseudomonas aeruginosa. Sputum culture with gram-negative bacilli. She is currently on cefepime per ID services. Remains on IV diuretics. Currently in a negative balance. Remains on bronchodilators. Tessalon Perles and Robitussin as needed for her cough. Lovenox for DVT prophylaxis. The patient is seen today 05/11/2023 in follow-up on the regular medical floor. She is resting comfortably in bed. Awake and alert in no acute distress. She is maintaining O2 saturations in the 90s on 4 L/m per nasal cannula. She's afebrile. Hemodynamically stable. Her blood cultures revealed no growth. Uri ne culture was positive for pseudomonas aeruginosa. Sputum culture is positive for pseudomonas aeruginosa. She is being followed by infectious disease. She remains on cefepime. She is continued on DuoNeb inhalations, Tessalon Perles and Robitussin for cough. Remains on IV diuretics. Currently in a -1.8 L balance. Glucose level 184. Objective - Vital Signs Vital signs: Vital Signs Temp 98.2 F 05/11/23 07:18 Pulse 80 05/11/23 07:18 Resp 20 05/11/23 07:18 BP 144/76 05/11/23 07:18 Pulse Ox 93 L 05/11/23 07:18 FiO2 Intake & Output 05/10/23 05/11/23 05/11/23 18:59 06:59 18:59 Intake Total 100 Output Total 700 1200 Balance -600 -1200 Weight 127 kg Intake: Intake, IV Titration 100 Amount Cefepime 2 gm In Sodium 100 Chloride 0.9% 100 ml @ 25 mls/hr IVPB Q8HR [facility] Rx# :[id number] Output: Urine 700 1200 Other: Voiding Method Diaper Diaper Diaper Incontinent Incontinent Incontinent External Catheter External Catheter External Catheter # Voids 1 # Bowel Movements 1 1 - Exam GENERAL EXAM: Alert, morbidly obese 72-year-old female, resting in bed, on 4 L nasal cannula, comfortable in no apparent distress. HEAD: Normocephalic. EYES: Normal reaction of pupils, equal size. NOSE: Clear with pink turbinates. THROAT: No erythema or exudates. NECK: No masses, no JVD. CHEST: No chest wall deformity. LUNGS: Equal air entry with few scattered rhonchi, crackles in the posterior bases. CVS: S1 and S2 normal with no audible murmur, regular rhythm. ABDOMEN: Obese, normal bowel sounds, no guarding or rigidity. SPINE: No scoliosis or deformity SKIN: His of chronic venous stasis of the bilateral lower extremities with cellulitis. CENTRAL NERVOUS SYSTEM: No focal deficits, tone is normal in all 4 extremities. EXTREMITIES: Cellulitis of the bilateral lower extremities, improving, Matthias wraps in place. No clubbing, no cyanosis. Peripheral pulses are intact. - Labs CBC & Chem 7: 05/09/23 06:00 05/09/23 06:00 Labs: Abnormal Lab Results - Last 24 Hours (Table) 05/10/23 05/10/23 05/10/23 Range/Units 11:59 17:11 20:18 POC Glucose (mg/dL) 219 H 277 H 314 H (70-110) mg/dL 05/11/23 Range/Units 07:16 POC Glucose (mg/dL) 184 H (70-110) mg/dL Microbiology - Last 24 Hours (Table) 05/06/23 20:00 Gram Stain - Final Sputum Sputum Culture - Final Pseudomonas aeruginosa Assessment and Plan Assessment: Acute hypoxic respiratory failure, currently on 4 L of oxygen by nasal cannula. Shortness of breath is multifactorial. There is an obvious component of CHF with preserved LV function and severe right-sided heart failure with RV dysfunction and fluid overload. Follow-up chest x-ray shows improvement in the fluid volume overload and interstitial edema. There has been some right lower lobe consolidation. Sputum culture with pneumonias aeruginosa. Early on cefepime, remains on IV diuretics Right ventricular failure with severe pulmonary hypertension Cellulitis, bilateral lower extremities. Treated with Omnicef, wound shows significant improvement Urinary tract infection secondary to pseudomonas aeruginosa Morbid obesity History of diabetes mellitus History of vitamin D deficiency Prior history of DVT History of osteoarthritis History of pneumonia History of kidney stones with intermittent gross hematuria Stress urinary incontinence Plan: The patient was seen and evaluated Labs and medications reviewed Remains on cefepime Remains on IV diuretics Continue the current treatment plan Increase the use of the incentive spirometer Titrate down the FiO2 as tolerated Follow-up chest x-ray and labs in a.m. Increase her activity as tolerated Should be out of bed as much as possible We will continue to follow This patient was seen independently by the pulmonary nurse practitioner who performed the medical decision making I have personally seen and examined the patient, performed the documentation and the assessment and plan as written. Number of minutes spent on the visit: 22.
[2023-05-11 12:16] LABS: Glucose,Whole Blood 224 mg/dL (70-110)
--- NOTE | 2023-05-11 12:33 | P.PN ---
Subjective Progress Note Date: 05/11/23 Denies any flank pain, gross hematuria. reviewed t the CT results with both patient and her Objective - Vital Signs Vital signs: Vital Signs Temp 98.2 F 05/11/23 07:18 Pulse 84 05/11/23 12:19 Resp 20 05/11/23 07:18 BP 144/76 05/11/23 07:18 Pulse Ox 93 L 05/11/23 07:18 FiO2 Intake & Output 05/10/23 05/11/23 05/11/23 18:59 06:59 18:59 Intake Total 100 Output Total 700 1200 Balance -600 -1200 Weight 127 kg Intake: Intake, IV Titration 100 Amount Cefepime 2 gm In Sodium 100 Chloride 0.9% 100 ml @ 25 mls/hr IVPB Q8HR [facility] Rx# :[id number] Output: Urine 700 1200 Other: Voiding Method Diaper Diaper Diaper Incontinent Incontinent Incontinent External Catheter External Catheter External Catheter # Voids 1 # Bowel Movements 1 1 - Constitutional General appearance: Present: no acute distress - Gastrointestinal General gastrointestinal: Present: soft. Absent: distended, tenderness - Psychiatric Psychiatric: Present: A&O x's 3 - Labs CBC & Chem 7: 05/09/23 06:00 05/09/23 06:00 Labs: Abnormal Lab Results - Last 24 Hours (Table) 05/10/23 05/10/23 05/11/23 Range/Units 17:11 20:18 07:16 POC Glucose (mg/dL) 277 H 314 H 184 H (70-110) mg/dL 05/11/23 Range/Units 12:15 POC Glucose (mg/dL) 224 H (70-110) mg/dL Microbiology - Last 24 Hours (Table) 05/06/23 20:00 Gram Stain - Final Sputum Sputum Culture - Final Pseudomonas aeruginosa Assessment and Plan Assessment: 72-year-old female history of gross hematuria. Had a negative cystoscopy in 2020 and there is a plan to set her up for outpatient cystoscopy and botox with Dr. Nicole. CT angiogram showed evidence of bilateral renal stones within the kidney, but kidney was not completely evaluated. Her gross hematuria is most likely secondary to her significant bilateral stone burden. CT Urogram showed bilateral stone burden, delayed drainage on right sided of collecting system -F/U as an outpatient for her gross hematuria and renal stone management with Dr Nicole
[2023-05-11 17:11] LABS: Glucose,Whole Blood 213 mg/dL (70-110)
[2023-05-11 20:26] LABS: Glucose,Whole Blood 319 mg/dL (70-110)
[2023-05-11] MEDS: OXYBUTYNIN 10 MG TAB.ER.24 PO SCH (20:43)
[2023-05-11] MEDS: guaiFENesin-Coden 100-10MG/5ML 10 ML CUP PO PRN (21:51)
[2023-05-12] MEDS: FUROSEMIDE 10 MG/ML 4 ML VIAL IV SCH (03:46)
[2023-05-12 07:34] LABS: Glucose,Whole Blood 186 mg/dL (70-110)
[2023-05-12] MEDS: IPRATROPIUM-ALBUTEROL 3 ML NEB INHALATION SCH ×4 (07:40→20:18)
[2023-05-12] MEDS: INSULIN ASPART (NovoLOG) 100 UNIT/ML VIAL SQ SCH ×4 (07:49→20:14)
[2023-05-12 09:03] LABS: Basophils # (A) 0.06 X 10*3/uL (0.00-0.10); Basophils % (A) 0.6 %; Eosinophils % (A) 7.4 %; HCT 44.8 % (37.2-46.3); HGB 13.2 g/dL (12.0-15.0); Lymphocytes # (A) 0.84 X 10*3/uL (0.90-5.00); Lymphocytes % (A) 8.9 %; MCH 28.4 pg (27.0-32.0); MCHC 29.5 g/dL (32.0-37.0); MCV 96.3 FL (80.0-97.0); Mean Platelet Volume 11.8 FL (9.5-12.2); Monocytes # (A) 0.56 X 10*3/uL (0.20-1.00); NRBC Per 100 WBC 0 X 10*3/uL (0.00-0.01); Neutrophils # (A) 7.15 X 10*3/uL (1.80-7.70); Neutrophils % (A) 76.1 %; Platelet Count 258 X 10*3/uL (140-440); RBC 4.65 X 10*6/uL (4.10-5.20); RDW 15.2 % (11.5-14.5)
[2023-05-12] MEDS: PANTOPRAZOLE 40 MG TABLET PO SCH (09:50)
[2023-05-12] MEDS: ASPIRIN 81 MG PO SCH ×2 (09:50→21:14)
[2023-05-12] MEDS: metFORMIN 500 MG TAB PO SCH ×2 (09:50→21:14)
[2023-05-12] MEDS: BENZONATATE 100 MG CAP PO SCH ×3 (09:50→21:15)
[2023-05-12] MEDS: METOPROLOL SUCCINATE (ER) 25 MG TAB.ER.24H PO SCH ×2 (09:50→21:15)
[2023-05-12] MEDS: ATORVASTATIN 20 MG TAB PO SCH (09:50)
[2023-05-12] MEDS: DAPAGLIFLOZIN PROPANEDIOL 10 MG TABLET PO SCH (09:50)
[2023-05-12] MEDS: CHOLECALCIFEROL 25 MCG (1000 IU) TABLET PO SCH ×2 (09:50→21:14)
[2023-05-12] MEDS: SPIRONOLACTONE 25 MG TAB PO SCH ×2 (09:50→21:14)
[2023-05-12] MEDS: FUROSEMIDE 40 MG TAB PO SCH ×2 (09:50→15:50)
[2023-05-12] MEDS: CEFEPIME 2 GM in SODIUM CHLORIDE 0.9% 100 ML IVPB SCH ×2 (09:51→21:15)
[2023-05-12] MEDS: ENOXAPARIN 40 MG/0.4 ML SYRINGE SQ SCH (09:51)
[2023-05-12] MEDS: NYSTATIN 100,000 UNIT/GM POWD 15 GM TOPICAL SCH ×3 (09:52→21:15)
[2023-05-12 10:00] LABS: ALT 7 U/L (8-44); AST 12 U/L (13-35); Albumin 3.5 g/dL (3.8-4.9); Albumin/Globulin Ratio 1.13 Ratio (1.60-3.17); Alkaline Phosphatase 84 U/L (41-126); Blood Urea Nitrogen 34.5 mg/dL (9.0-27.0); Calcium 9.6 mg/dL (8.7-10.3); Carbon Dioxide 28.9 mmol/L (21.6-31.8); Chloride 98 mmol/L (96-109); Globulin 3.1 g/dL (1.6-3.3); Glucose 198 mg/dL (70-110); Potassium 4.1 mmol/L (3.5-5.5); Sodium 139 mmol/L (135-145); Total Bilirubin 0.5 mg/dL (0.3-1.2); Total Protein 6.6 g/dL (6.2-8.2)
[2023-05-12 12:05] LABS: Glucose,Whole Blood 245 mg/dL (70-110)
--- NOTE | 2023-05-12 13:08 | P.PN ---
Subjective Progress Note Date: 05/12/23 72-year-old female seen in the emergency department, room 15. She's here with her . She apparently presented to the emergency department, on April 24, with multiple complaints including leg swelling, shortness of breath, cough, and generally just not feeling well. She also has some tingling to her hands bilaterally, and apparently has been seen by one of the hand surgeons. The patient is laying flat in bed. She is on a couple liters of oxygen. She's not receiving any IV fluids. She tells me that she has cellulitis of the lower extremities. She is a rather large woman. She also tells me that her only major medical problem is diabetes mellitus. Although, she apparently has a hist ory of DVT, osteoarthritis, and pneumonia. She also has a previous history of kidney stones, status post lithotripsy. Current labs include a white count 6.6, hemoglobin 12.9, hematocrit 42.6, and a platelet count of 101,000. D-dimer is 2.31. Venous blood gases showed CO2 49 and a pH is 7.36. Sodium 140, potassium 4.7, chlorides 105, CO2 25, BUN 22, creatinine 0.69. The N-terminal proBNP is e levated at 5250. Troponins were negative 2. Urine showed 2+ protein and moderate blood and large leukocyte esterase, 93 RBCs 74 WBCs, rare bacteria, and occasional mucus. Testing for coronavirus was negative. Chest x-ray showed changes consistent with pulmonary edema/fluid overload. CT angiogram was negative for pulmonary embolism. Doppler of the lower semis was negative for DVT. Progress note dated 04/26/2023. 72-year-old obese female seen yesterday in the emergency department. Today, she is seen in room 368. The patient's currently on 3 L of oxygen. She is receiving Lasix and her fluid overload, and Ancef, for her lower extremity edema. Her lower extremity edema is a bit better today. She does feel a bit better today, less short of breath. Current laboratory data includes a glucose of 181. Testing for harper virus was negative. Troponin was less than 0.012, 2. Progress note dated 04/27/2023. 73-year-old female initially seen in the emergency department, but is seen in room 368 today. She continues on oxygen at 3 L. No IV fluids. For her cough, we ordered some Tessalon Perles. In addition, she continues on Ancef for her bilateral lower extremity cellulitis. Also, she is receiving diuretics, for her pulmonary edema. Today's laboratory data includes a glucose of 137. Testing for harper virus was negative. Blood cultures are negative. On today's evaluation of 04/28/2023, I'm seeing the patient for a follow-up. She is on 10 L of oxygen by nasal cannula. She is in for increased lower extremity edema, hypoxic respiratory failure, lower extremity infection. The patient has some mild cardiomegaly on her CT angiogram. No evidence of any pulmonary embolism. Her echocardiogram showed LV function with ejection fraction of 50-55%. She has severe RV dilatation and severe pulmonary hypertension and she may have an underlying obstructive sleep apnea. No recent CBC, most recent electrolytes show a BUN of 34 with a creatinine 1.1 and sodium level is at 138. She is currently on oxygen at 10 L she is on IV cefazolin. She is also on oral Lasix 40 mg by mouth daily. She remains on bronchodilators with albuterol HFA, IV Solu-Medrol 20 mg every 8 hours and Lovenox 40 mg subcu portably prophylaxis. On 04/29/2023, the patient is sitting up in a recliner. Doing well. She is down to 6 L of oxygen nasal cannula. She is still on Lasix. She is in a negative fluid balance. Labs from today are still pending. No other significant events overnight. No angina. No palpitations. No chest pain. Remains on albuterol HFA, IV Solu-Medrol 20 mg every 8 hours then Lovenox 40 mg subcu for DVT prophylaxis. On 04/30/2023, the patient is being seen for a follow-up. Doing well. No new complaints. The patient has been weaned down to 5 L of oxygen by nasal cannula with a pulse ox of 95%. The patient is diuresing adequately and the patient is a negative fluid balance of at least 2 L over the past 24 hours. The patient is currently on Lasix 40 mg by mouth daily. The patient is still on IV cefazolin regarding lower extremity cellulitis. Edema still present in the legs bilaterally. Blood work from today shows a BUN of 44 with a creatinine of 0.7. Sodium level is at 138. The risks count of 9.3 with a hemoglobin 15.1 and a platelet count of 243. No chest pain. No interval worsening shortness of breath. On 05/01/2023, the patient has been weaned down to 5 L. Her current pulse ox is 93%. She is making excellent urine output. Overall fluid balance is -2 L over the past 24 hours. She remains on Lasix 40 mg by mouth and the dose was increased up to twice a day. She remains on IV cefazolin. Lower extremity cellulitis is also improving. Mentally she is awake and alert and communicating. She is trying to increase her mobility. She is working with physical therapy. Blood work shows a sodium level of 141, BUN is 34 with a creatinine of 0.6. LFTs are normal. The viscosity 0.8 with a hemoglobin 15.4 and a platelet count of 178. on today's evaluation of 05/02/2023, the patient is still on 5 L of O2 nasal cannula. She is producing excellent urine output. There is significant improvement in lower extremity edema and the wound over the right lower extremity so is essentially eating at this point in time. There is no active drainage. The wound is very healthy-looking. Edema lower extremity is also improving. Meanwhile, the patient remains on oral Lasix. Fluid balance is negative at least 2 L over the past 24 hours.White cell count of 8.2 with a hemoglobin of 13.4 and a platelet count of 181. BUN is at 28 with a creatinine of 0.6 and a sodium level is at 140. Potassium levels at 4.0. The patient re atif on IV cefazolin. The patient is on Lasix 40 mg by mouth twice a day. Rest of the medications remain unchanged. The patient and KVO. We will balance is -2.3 L over the past 24 hours. On 05/03/2023, no new complaints. The patient is sitting up on a chair. She is currently on room air oxygen. Oxygen saturation is improved. The patient was transferred to the [facility]. The fluid balance is negative at least 2.3 L. The labs are all stable, the viscosity 11.1, he was 13.8, serum bicarbonate is 41, BUN is 28 with a creatinine of 0.66 05/04/2023, condition is stable. Still on 5 L of O2 nasal cannula. She patient continues to the stable and saturations improved. We should be able to wean down FiO2. No new complaints otherwise for now. The patient is seen today 05/05/2023 in follow-up on the regular medical floor. She is currently resting in bed. Awake and alert in no acute distress. She denies any worsening shortness of breath, cough or congestion. He is maintainin g O2 saturation in the 90s on 3 L/m per nasal cannula. She's afebrile. Hemodynamically stable. Blood cultures revealed no growth. White count 12.2. Hemoglobin 13.5. Platelets 232. Sodium 138. Potassium 3.7. Bicarb 25. BUN 29. Creatinine 0.83. Glucose 173. She is continued on DuoNeb inhalations. Remains on antibiotics in the form of cefazolin. Continued on oral diuretics. Currently in a negative balance. The patient is seen today 05/06/2023 in follow-up on the regular medical floor. She is currently laying flat in bed. Awake and alert in no acute distress. Denies any worsening shortness of breath. She continues with a dry nonproductive cough. She is maintaining good O2 saturations in the 90s on 4 L/m per nasal cannula. She's afebrile. Hemodynamically stable. Follow-up chest x- ray shows mild cardiomegaly and ongoing interstitial densities. Mild pulmonary vascular congestion. Patchy density in the right midlung. I count 10.4. Hemoglobin 12.9. Platelets 218. Glucose 159. She continues on bronchodilators. Oral diuretics. Lovenox for DVT prophylaxis. Remains on cefazolin per ID services. The patient is seen today 05/07/2023 in follow-up on the regular medical floor. She is sitting up in bed. Awake and alert. Having breakfast. Denies any worsening shortness of breath, cough or congestion. Maintaining O2 saturations in the 90s on 4 L/m per nasal cannula. She's been afebrile. Hemodynamically stable. Glucose 156. She remains on Diamox, Lasix, Aldactone. Continued on bronchodilators, Tessalon Perles. Lovenox for DVT prophylaxis. Antibiotics in the form of Omnicef. The patient is seen today 05/08/2023 in follow-up on the regular medical floor. She remains awake and alert in no acute distress. Continues with a cough with occasional yellow phlegm. No fever chills. No chest pain. Pro-calcitonin was 0.10. She continues to maintain good O2 saturations in the 90s on 4 L/m per nasal cannula. She's been afebrile. Hemodynamically stable. During culture positive for gram-negative bacilli. Blood cultures revealed no growth. Follow- up chest x-ray today continues to show evidence of fluid volume overload. Count 9.7. Hemoglobin 12.7. Platelets 249. Sodium 140. Potassium 4.0. Bicarb 27. BUN 30. Creatinine 0.8. Glucose 184. AST 11. ALT 6. He is continued on DuoNeb inhalations, Tessalon Perles, antibiotics in the form of Omnicef. She is on Lasix 40 mg by mouth twice a day long with Aldactone 25 mg daily. The patient is seen today 05/09/2023 in follow-up on the regular medical floor. She is resting comfortably in bed. Awake and alert in no acute distress. Maintaining good O2 saturations in the 90s on 4 L/m per nasal cannula. Today's chest x-ray continues to show cardiomegaly there is improvement in the pulmonary venous congestion. She remains on IV diuretics. Currently in a -2 L balance. She had undergone urogram CT today. Results are pending. Yesterday she had some complaints of right knee pain. X-ray revealed no acute osseous pathology. Urine culture had been positive for pseudomonas aeruginosa. Sputum culture showing gram-negative bacilli. White count 14.9. Hemoglobin 13.3. Platelets 277. Sodium 140. Potassium 4.1. Bicarb 29. BUN 29. Creatinine 1.0. Glucose 188. ProBNP 1320. She is continued on DuoNeb inhalations, Tessalon Perles, antibiotics in the form of Omnicef. She is on Lasix 40 mg IV 8 hours, Aldactone 25 mg twice a day. The patient is seen today 05/10/2023 in follow-up on the regular medical floor. She is awake and alert in no acute distress. Resting fairly comfortably in bed. Denies any worsening shortness of breath, cough or congestion. She is maintai nancy O2 saturations in the mid 90s on 4 L/m per nasal cannula. She's been afebrile. Hemodynamically stable. She's been up ambulating in her room to the bathroom with assistance. Spending more time up in a chair as encouraged. Urogram CT revealed opacity in the right lower lobe. Large lobulated cyst of the right kidney measuring 7.9 cm. Smaller 2.5 cm cyst of the left kidney. No suspicious renal mass or hydronephrosis is seen. There is bilateral nonobstructive renal calculi measuring up to 9 mm on the right. She continues to deny any flank pain. Urine culture was positive for pseudomonas aeruginosa. Sputum culture with gram-negative bacilli. She is currently on cefepime per ID services. Remains on IV diuretics. Currently in a negative balance. Remains on bronchodilators. Tessalon Perles and Robitussin as needed for her cough. Lovenox for DVT prophylaxis. The patient is seen today 05/11/2023 in follow-up on the regular medical floor. She is resting comfortably in bed. Awake and alert in no acute distress. She is maintaining O2 saturations in the 90s on 4 L/m per nasal cannula. She's afebrile. Hemodynamically stable. Her blood cultures revealed no growth. Uri ne culture was positive for pseudomonas aeruginosa. Sputum culture is positive for pseudomonas aeruginosa. She is being followed by infectious disease. She remains on cefepime. She is continued on DuoNeb inhalations, Tessalon Perles and Robitussin for cough. Remains on IV diuretics. Currently in a -1.8 L balance. Glucose level 184. The patient is seen today 05/12/2023 in follow-up on the regular medical floor. She is awake and alert in no acute distress. Resting comfortably in bed. Ángela ntaining O2 saturations in the 90s on 4 L/m per nasal cannula. She is still having ongoing issues with a dry nonproductive cough. No worsening shortness of breath, cough or congestion. Blood culture revealed no growth. Urine culture was positive for pseudomonas aeruginosa. Sputum culture was positive for pseudomonas aeruginosa. White count 9.4. Hemoglobin 13.2. Platelets 258. Sodium 139. Potassium 4.1. Bicarb 29. BUN 35. Creatinine 1.0. Glucose 198. She remains on IV diuretics. Remains in a negative balance. Continue bronchodilators, Tessalon Perles and Robitussin for her cough. Remains on antibiotics in the form of cefepime. Objective - Vital Signs Vital signs: Vital Signs Temp 97.4 F L 12/18/23 07:31 Pulse 84 05/12/23 11:21 Resp 18 05/12/23 07:31 BP 143/82 05/12/23 07:31 Pulse Ox 93 L 05/12/23 07:31 FiO2 Intake & Output 05/11/23 05/12/23 05/12/23 18:59 06:59 18:59 Intake Total 590 Output Total 1100 301 401 Balance -1100 289 -401 Weight 126.6 kg Intake: Oral 590 Output: Urine 1100 300 400 Stool 1 1 Other: Voiding Method Diaper Diaper Diaper Incontinent Incontinent Incontinent External Catheter External Catheter External Catheter - Exam GENERAL EXAM: Alert, pleasant 72-year-old female, on 4 L nasal cannula, comfortable in no apparent distress. HEAD: Normocephalic. EYES: Normal reaction of pupils, equal size. NOSE: Clear with pink turbinates. THROAT: No erythema or exudates. NECK: No masses, no JVD. CHEST: No chest wall deformity. LUNGS: Equal air entry with few scattered rhonchi, crackles in the posterior bases. CVS: S1 and S2 normal with no audible murmur, regular rhythm. ABDOMEN: Obese, normal bowel sounds, no guarding or rigidity. SPINE: No scoliosis or deformity SKIN: His of chronic venous stasis of the bilateral lower extremities with cellulitis. CENTRAL NERVOUS SYSTEM: No focal deficits, tone is normal in all 4 extremities. EXTREMITIES: Cellulitis of the bilateral lower extremities, improving, Matthias wraps in place. No clubbing, no cyanosis. Peripheral pulses are intact. - Labs CBC & Chem 7: 05/12/23 05:58 05/12/23 05:58 Labs: Abnormal Lab Results - Last 24 Hours (Table) 05/11/23 05/11/23 05/12/23 Range/Units 17:10 20:23 05:58 MCHC 29.5 L (32.0-37.0) g/dL RDW 15.2 H (11.5-14.5) % Immature Gran # 0.09 H (0.00-0.04) X 10*3/uL Lymphocytes # 0.84 L (0.90-5.00) X 10*3/uL Eosinophils # 0.70 H (0.04-0.35) X 10*3/uL Anion Gap (4.00-12.00) mmol/L BUN (9.0-27.0) mg/dL BUN/Creatinine Ratio (12.00-20.00) Ratio Glucose (70-110) mg/dL POC Glucose (mg/dL) 213 H 319 H (70-110) mg/dL AST (13-35) U/L ALT (8-44) U/L Albumin (3.8-4.9) g/dL Albumin/Globulin Ratio (1.60-3.17) Ratio 05/12/23 05/12/23 05/12/23 Range/Units 05:58 07:33 12:04 MCHC (32.0-37.0) g/dL RDW (11.5-14.5) % Immature Gran # (0.00-0.04) X 10*3/uL Lymphocytes # (0.90-5.00) X 10*3/uL Eosinophils # (0.04-0.35) X 10*3/uL Anion Gap 12.10 H (4.00-12.00) mmol/L BUN 34.5 H (9.0-27.0) mg/dL BUN/Creatinine Ratio 34.50 H (12.00-20.00) Ratio Glucose 198 H (70-110) mg/dL POC Glucose (mg/dL) 186 H 245 H (70-110) mg/dL AST 12 L (13-35) U/L ALT 7 L (8-44) U/L Albumin 3.5 L (3.8-4.9) g/dL Albumin/Globulin Ratio 1.13 L (1.60-3.17) Ratio Assessment and Plan Assessment: Acute hypoxic respiratory failure, currently on 4 L of oxygen by nasal cannula. Shortness of breath is multifactorial. There is an obvious component of CHF with preserved LV function and severe right-sided heart failure with RV dysfunction and fluid overload. Follow-up chest x-ray shows improvement in the fluid volume overload and interstitial edema. There has been some right lower lobe consolidation. Sputum culture with pneumonias aeruginosa. On cefepime, remains on IV diuretics Right ventricular failure with severe pulmonary hypertension Cellulitis, bilateral lower extremities. Treated with Omnicef, wound shows significant improvement Urinary tract infection secondary to pseudomonas aeruginosa Morbid obesity History of diabetes mellitus History of vitamin D deficiency Prior history of DVT History of osteoarthritis History of pneumonia History of kidney stones with intermittent gross hematuria Stress urinary incontinence Plan: The patient was seen and evaluated Labs and medications reviewed Transitioned IV diuretics to oral Chest x-ray pending Antibiotics per ID services Increase her activity as tolerated Should be out of bed as much as possible May need subacute rehabilitation Discussed the plan of care with the who remains at the bedside This patient was seen independently by the pulmonary nurse practitioner I have personally seen and examined the patient, performed the documentation and the assessment and plan as written. Number of minutes spent on the visit: 25.
--- NOTE | 2023-05-12 14:27 | P.PN ---
Subjective Progress Note Date: 05/12/23 This patient is a 72-year-old female with PMH of DVT, osteoarthritis she came in for worsening swelling in legs and SOB. Per EMR review: Chest x-ray completed showing marked interstitial phase pulmonary edema presumably cardiogenic etiology. Lab work revealing elevated d-dimer 2.31. CT of the chest performed showing trace pericardial effusion, scattered reticular infiltrates in the right upper lobe and both lung bases consider viral or interstitial pneumonia. Pulmonary arterial tree is adequately opacified with contrast no large central emboli are visible there is under opacification of a small segmental branch in the left lower lobe laterally no discrete thrombus is visible. Troponins negative. BNP elevated at 5250. She completed course IV abx, EF was normal 50-55%. SHe was diuresed. Still endorsing cough. At home she lives with her . He was helping her physically for the last few weeks including helping her with a "transport chair" in the house. She reports prior to the last few weeks she did not use any AD. She has been to [facility] in the past in 1999 when she diagnosed with DVT. She endorses cough and SOB. No c/p. 05/08/23: PT: Pt. able to maintain sitting balance without assist. Pt. ambulated with short step gait with rolling walker. Pt. required min assist to move walker on turn. Pt. reported increased LE fatigue, R knee pain requiring to sit down after 30 feet ambulation. Pt. declined to attempt further activity. Patient has had prolonged hospital stay. She is on O2 via NC, normally not on O2 at home. 05/12/23: Patient assessed sitting in reclining chair at bedside with her . Patient's states they have discussed with Dr Angulo and they are now agreeable to IPR as she is needing too much help to go home. She denies CP, does have SOB, no abdominal pain. She reports her leg swelling is much improved. She had a small BM today, purewick for urination. She reports her leg edema is much improved, currently wrapped. Discussed with Dr Angulo that patient is now agreeable to IPR and will plan for admission tomorrow. He reports patient is medically stable. Therapy notes: patient is min assist with bathing, UB dressing supervision, LB dressing mod x 2 ppl, total assist with toileting, ambulated 30 ft RW min assist. Objective - Vital Signs Vital signs: Vital Signs Temp 97.4 F L 05/12/23 07:31 Pulse 84 05/12/23 11:21 Resp 18 05/12/23 07:31 BP 143/82 05/12/23 07:31 Pulse Ox 93 L 05/12/23 07:31 FiO2 Intake & Output 05/11/23 05/12/23 05/12/23 18:59 06:59 18:59 Intake Total 590 Output Total 1100 301 401 Balance -1100 289 -401 Weight 126.6 kg Intake: Oral 590 Output: Urine 1100 300 400 Stool 1 1 Other: Voiding Method Diaper Diaper Diaper Incontinent Incontinent Incontinent External Catheter External Catheter External Catheter - Exam General: WDWN, elderly female, in reclining chair with her at her side.legs elevated, NAD Head: Normocephalic, atraumatic. Eyes: Symmetric Ears: Symmetric. Hearing within normal limits. Mouth: Clear. Neck: Supple. Cardiac: scleroscope tester on, B/L LE wrapped, + edema Lungs: Breathing comfortably on O2 via NC. Chest symmetric. Abdomen: Soft, nontender. Extremities: Arthritic changes consistent with age. Neurological: Alert and oriented x 4. Speech is clear and fluent without paraphasic errors Sensation: Intact and symmetrical limbs. Musculoskeletal: ROM WFL EXCEPT: decreased bilateral hips and knees, complaints of OA in knees MMT UE Sh Abd EE EF FABD WE HG Right 4+ 4 4+ 5 Left 4+ 4 4+ 5 MMT LE HF KE DF EHL Right 4 4 5- 5- Left 3 4 5- 5- Skin: Skin intact where visible to head, neck, and bilateral upper and lower extremities EXCEPT: bilateral legs wrapped with bella wraps, peripheral IV Psych: Calm, cooperative - Labs CBC & Chem 7: 05/12/23 05:58 05/12/23 05:58 Labs: Abnormal Lab Results - Last 24 Hours (Table) 05/11/23 05/11/23 05/12/23 Range/Units 17:10 20:23 05:58 MCHC 29.5 L (32.0-37.0) g/dL RDW 15.2 H (11.5-14.5) % Immature Gran # 0.09 H (0.00-0.04) X 10*3/uL Lymphocytes # 0.84 L (0.90-5.00) X 10*3/uL Eosinophils # 0.70 H (0.04-0.35) X 10*3/uL Anion Gap (4.00-12.00) mmol/L BUN (9.0-27.0) mg/dL BUN/Creatinine Ratio (12.00-20.00) Ratio Glucose (70-110) mg/dL POC Glucose (mg/dL) 213 H 319 H (70-110) mg/dL AST (13-35) U/L ALT (8-44) U/L Albumin (3.8-4.9) g/dL Albumin/Globulin Ratio (1.60-3.17) Ratio 05/12/23 05/12/23 05/12/23 Range/Units 05:58 07:33 12:04 MCHC (32.0-37.0) g/dL RDW (11.5-14.5) % Immature Gran # (0.00-0.04) X 10*3/uL Lymphocytes # (0.90-5.00) X 10*3/uL Eosinophils # (0.04-0.35) X 10*3/uL Anion Gap 12.10 H (4.00-12.00) mmol/L BUN 34.5 H (9.0-27.0) mg/dL BUN/Creatinine Ratio 34.50 H (12.00-20.00) Ratio Glucose 198 H (70-110) mg/dL POC Glucose (mg/dL) 186 H 245 H (70-110) mg/dL AST 12 L (13-35) U/L ALT 7 L (8-44) U/L Albumin 3.5 L (3.8-4.9) g/dL Albumin/Globulin Ratio 1.13 L (1.60-3.17) Ratio Assessment and Plan Assessment: # Impaired gait and ADLs secondary to AHRF, currently on O2 via NC -wean as tolerated, PT/OT #Debility #CHF exacerbation, normal EF 50-55% #Lower extremity cellulitis #History of DVT #History of pneumonia #Macular degeneration #Right ventricular failure with severe pulmonary hypertension #Urinary tract infection secondary to pseudomonas aeruginosa #Morbid obesity #History of diabetes mellitus #History of osteoarthritis -reports bilateral knee pain, chronic #Comorbidities: History of vitamin D deficiency, History of pneumonia, History of kidney stones with intermittent gross hematuria, Stress urinary incontinence Disposition: Patient and are now agreeable to IPR, discussed with Dr Angulo, Will discuss with referral liaison at [facility]. Will plan for admission tomorrow morning. Patient seen and examined in coordination with Dr Olmstead Patient seen and examined in coordination with AVANI Maradiaga; agree with above.
--- NOTE | 2023-05-12 15:07 | XR ---
EXAMINATION TYPE: XR chest 1V portable DATE OF EXAM: 05/12/2023 COMPARISON: 05/09/2023 INDICATION: CHF TECHNIQUE: Single frontal view of the chest is obtained. FINDINGS: The heart size is normal. The pulmonary vasculature is prominent. Right basilar infiltrates are present. Correlate for atypical pulmonary edema. IMPRESSION: 1. Focal correlation recommended for bibasilar infiltrates. Atypical pulmonary edema, pneumonia, and atelectasis could be considered.
[2023-05-12 17:13] LABS: Glucose,Whole Blood 204 mg/dL (70-110)
--- NOTE | 2023-05-12 17:13 | P.PN ---
Subjective Progress Note Date: 05/12/23 Lorene Palma, is a 72-year-old female who presented with multiple complaints that have been occurring over the past few weeks. Patient reports she's had increased swelling to the lower extremity with weeping ulcers. Patient also reports she's had increased shortness of breath and cough. Patient also reports she's had tingling to hands bilaterally but has followed up with orthopedic surgeon outpatient. Patient has a past medical history of diabetes mellitus, DVT, I disorder, osteoporosis, pneumonia and macular degeneration. Chest x-ray completed showing marked interstitial phase pulmonary edema presumably cardiogenic etiology. Lab work revealing elevated d-dimer 2.31. CT of the chest performed showing trace pericardial effusion, scattered reticular infiltrates in the right upper lobe and both lung bases consider viral or interstitial pneumonia. Pulmonary arterial tree is adequately opacified with contrast no large central emboli are visible there is under opacification of a small segmental branch in the left lower lobe laterally no discrete thrombus is visible. This is of questioned significance small segmental pulmonary embolism cannot be excluded. Aortic arch is mildly calcified but nondilated. Will consult pulmonary services. Venous Doppler completed no deep vein thrombosis identified. Troponins negative. BNP elevated at 5250. UA positive for urinary tract infection. At this time patient will be admitted cardiology pulmonary service is consulted. Bilateral lower extremities noted for cellulitis. Infectious disease service is consulted patient started on IV antibiotics. 2-D echo ordered. COVID-19 negative. Patient started on IV Lasix On 04/26/2023 patient was seen and examined on the telemetry floor she is alert and oriented 3 in no apparent distress, she is complaining of bilateral lower extremity pain, site of cellulitis and ulcers, she is also complaining of left shoulder pain and shortness of breath with any activity, otherwise she denies any complaints there is no fever or chills no headache or dizziness no chest pain no cough no nausea or vomiting no abdominal pain no diarrhea no blood in the stools no burning with urination no frequency or urgency and no hematuria. At this time awaiting further recommendation from cardiology. Patient is maintained on IV antibiotic for bilateral lower extremity cellulitis with ulcers, awaiting further input from infectious disease. On 04/27/2023 patient alert and oriented 3. Patient reports improvement with lower infection many pain. Patient remains on IV cefazolin. Tessalon pearls added for cough. Pulmonary cardiology and infectious disease service is consulted. Vital signs temp 98.3, heart rate 97, respiratory rate 18, blood pressure 119/63 with pulse ox of 91% on 2 L On 04/28/2023 patient was seen and examined on the telemetry floor she is alert and oriented 3 in no apparent distress yesterday she had worsening shortness of breath at night with significant drop in her O2 sat duration down to the 70s O2 supplements was increased to 15 L high flow, pulmonary and cardiology are fol lowing patient is improving gradually during the day today, repeat chest x-ray ordered will follow closely. On 04/29/2023 patient is alert and oriented 3. Sliding scale insulin added. 97.9, heart rate 76, respiratory rate 14, blood pressure 112/73 with pulse ox of 94% on 6 L. Patient remains on IV Kefzol and IV steroids On 04/30/2023 patient is alert and oriented 3. Patient reports improvement with shortness of breath and bilateral leg pain. Oxygen decreasing to 5 L. Per pulmonary services steroids have been DC'd. Patient remains on IV antibiotics. Pulmonary, cardiology and infectious disease services following. Current vital signs temp 97.9, heart rate 80, respiratory rate 18, blood pressure 115/73 with pulse ox 93% on 5 L On 05/01/2023 patient was seen and examined on the telemetry floor she is alert and oriented 3 in no apparent distress there is no fever or chills no headache or dizziness she is still having shortness of breath she is still requiring 4 L of oxygen there is no chest pain no cough no nausea or vomiting no abdominal pain no diarrhea and no urinary symptoms, she remains on IV cefazolin for bilateral lower extremity cellulitis with ulcers. On 05/02/2023 patient is alert and oriented 3. Current vital signs temp 98, heart rate 86, respiratory rate 22, blood pressure 128/76 with a pulse ox 92% on 5 L. By mouth Lasix increased to twice daily. Patient remains on IV antibiotics. Infectious disease pulmonary and cardiology services following On 05/03/2023 patient alert and oriented 3 currently sitting up in chair. Patient was started on Diamox for elevated CO2. Patient also started on Aldactone per cardiology services. Pulmonary cardiology service is currently following. Current vital signs temp 97.9, pulse rate 79, respiratory rate 18, blood pressure 122/84 with a pulse ox 90% on 5 L On 05/04/2023 patient was seen and examined on the medical floor, she is alert and oriented 3 in no apparent distress, she is still complaining of shortness of breath with any activity, she is also complaining of bilateral lower extremity edema erythema and tenderness, there is a large ulcer on the right pretibial area. Patient remains on oxygen supplements at 5 L/m, she remains on Lasix and Aldactone and Diamox vital exam reveals a temperature of 98.3 pulse 72 respiration 18 blood pressure 123/71 pulse ox 93% on 5 L nasal cannula, labs to day are still pending. On 05/05/2023 patient was seen and examined on the medical floor she is alert and oriented 3 in no apparent distress there is no fever or chills no headache or dizziness no chest pain no shortness of breath at rest, she is still having significant shortness of breath with any activity she is still maintained on oxygen 3 L nasal cannula, she is still having some cough no nausea or vomiting no abdominal pain no diarrhea and no urinary symptoms. Patient is maintained on Ancef for bilateral lower extremity cellulitis infectious disease following, will recheck labs and follow-up in the am On 05/06/2023 patient's alert and oriented 3. Still complaining of some shortness breath and coughing. Pulmonary services are following. Current vital signs temp 97.9, heart rate 79, respiratory rate 16, blood pressure 107/70 with a pulse ox of 93% on 4 L Chest x-ray done yesterday revealed evidence of cardiomegaly with ongoing interstitial densities and patchy density at the right mid lung which is increasing. On 05/07/2023 patient is alert and oriented 3. Sputum culture ordered per pulmonary. Ultrasound of bladder and abdomen completed results pending. Vital signs temp 98.2, her 85, respiratory rate 16, blood pressure 117/76 with pulse ox of 91% on 4 L. On 05/08/2023 patient is alert and oriented 3. Pulmonary services are following. Orthopedic services and urology services consulted. Patient still complaining of some shortness of breath. Patient denies chest pain. Patient denies nausea vomiting or diarrhea. Patient denies any urinary burning or isaias quency On 05/09/2023 patient's alert and oriented 3. Patient has been started on IV Lasix per pulmonary. orthopedic services evaluated continue conservative management for knee pain. Urology service is following for hematuria. Patient playing of dry cough. Patient denies chest pain. Patient denies nausea vomiting or diarrhea. Patient denies any urinary burning or frequency. On 05/10/2023 patient was seen and examined on the medical floor she is alert and oriented 3 in no apparent distress she is sitting up in a chair she is complaining of cough and shortness of breath with any activity otherwise she denies any complaints there is no fever or chills no headache or dizziness no chest pain or vomiting no abdominal pain no diarrhea no blood in the stools no burning with urination no frequency or urgency . On 05/11/2023 patient's alert and oriented 3. Patient remains on IV Maxipime per infectious disease awaiting culture finalization. Patient also proved for home oxygen. continues to express that she is not ready to go home due to continued cough. Patient remains on IV Lasix. Patient denies chest pain. Patient denies nausea vomiting or diarrhea. Patient denies any urinary burning or frequency. Current vital signs temp 98.2, pulse rate 80, respiratory rate 20, blood pressure 144/76 with pulse is 92% on 4 L On 05/12/2023 patient was seen and examined on the medical floor she is alert and oriented 3 in no apparent distress there is no fever or chills no headache or dizziness no chest pain no shortness of breath at rest, she is still having significant shortness of breath with any activity she is still maintained on oxygen 4 L nasal cannula, she is still complaining of cough no nausea or vomiting no abdominal pain no diarrhea and no urinary symptoms. Patient is maintained on Cefepime for bilateral lower extremity cellulitis, urinary tract infection and possible pneumonia, urine and sputum culture positive for Pseudomonas aeroginosa, infectious disease following, will recheck labs and follow-up in the am, plan is for transfer to inpatient rehab in am. Objective - Vital Signs Vital signs: Vital Signs Temp 97.7 F 05/12/23 14:26 Pulse 92 05/12/23 15:09 Resp 16 05/12/23 14:26 BP 115/62 05/12/23 14:26 Pulse Ox 91 L 05/12/23 14:26 FiO2 Intake & Output 05/11/23 05/12/23 05/12/23 18:59 06:59 18:59 Intake Total 590 Output Total 1100 301 401 Balance -1100 289 -401 Weight 126.6 kg Intake: Oral 590 Output: Urine 1100 300 400 Stool 1 1 Other: Voiding Method Diaper Diaper Diaper Incontinent Incontinent Incontinent External Catheter External Catheter External Catheter - Exam In general patient is alert and oriented x 3 in no distress HEENT head normocephalic and atraumatic Neck is supple no JVD no goiter no lymphadenopathy no carotid bruit Chest examination is clear to auscultation no crackles no wheezing Cardiac exam reveals regular heart sounds S1 and S2 no gallops no murmurs Abdomen is soft nontender no organomegaly with normal bowel sounds Extremity exam reveals bilateral pretibial erythema with superficial ulcers and 2+ edema Neurological examination reveals no gross focal deficits - Labs CBC & Chem 7: 05/12/23 05:58 05/12/23 05:58 Labs: Abnormal Lab Results - Last 24 Hours (Table) 05/11/23 05/11/23 05/12/23 Range/Units 17:10 20:23 05:58 MCHC 29.5 L (32.0-37.0) g/dL RDW 15.2 H (11.5-14.5) % Immature Gran # 0.09 H (0.00-0.04) X 10*3/uL Lymphocytes # 0.84 L (0.90-5.00) X 10*3/uL Eosinophils # 0.70 H (0.04-0.35) X 10*3/uL Anion Gap (4.00-12.00) mmol/L BUN (9.0-27.0) mg/dL BUN/Creatinine Ratio (12.00-20.00) Ratio Glucose (70-110) mg/dL POC Glucose (mg/dL) 213 H 319 H (70-110) mg/dL AST (13-35) U/L ALT (8-44) U/L Albumin (3.8-4.9) g/dL Albumin/Globulin Ratio (1.60-3.17) Ratio 05/12/23 05/12/23 05/12/23 Range/Units 05:58 07:33 12:04 MCHC (32.0-37.0) g/dL RDW (11.5-14.5) % Immature Gran # (0.00-0.04) X 10*3/uL Lymphocytes # (0.90-5.00) X 10*3/uL Eosinophils # (0.04-0.35) X 10*3/uL Anion Gap 12.10 H (4.00-12.00) mmol/L BUN 34.5 H (9.0-27.0) mg/dL BUN/Creatinine Ratio 34.50 H (12.00-20.00) Ratio Glucose 198 H (70-110) mg/dL POC Glucose (mg/dL) 186 H 245 H (70-110) mg/dL AST 12 L (13-35) U/L ALT 7 L (8-44) U/L Albumin 3.5 L (3.8-4.9) g/dL Albumin/Globulin Ratio 1.13 L (1.60-3.17) Ratio Assessment and Plan Assessment: 1. Shortness of breath 2. CHF exacerbation. Noted elevated BNP. 2-D echo ordered patient started on IV Lasix 3. Elevated d-dimer. CTA performed negative venous Doppler 4. Possible pneumonia. Pulmonary service is consulted 5. Urinary tract infection urine culture ordered 6. Lower extremity cellulitis. Patient started on IV antibiotics infectious disease service is consulted 7. History of diabetes mellitus 8. History of DVT 9. History of pneumonia 10. History of macular degeneration 11. Elevated CO2 patient started Diamox 12. Hematuria. Urology service is following 13. Knee pain. Orthopedic service consulted DVT prophylaxis Lovenox. GI prophylaxis Protonix Cardiology, pulmonary and infectious disease service is consulted Patient started on IV antibiotic sputum culture ordered Maintained on by mouth Lasix
[2023-05-12 20:14] LABS: Glucose,Whole Blood 266 mg/dL (70-110)
[2023-05-12] MEDS: OXYBUTYNIN 10 MG TAB.ER.24 PO SCH (21:14)
--- NOTE | 2023-05-12 23:43 | P.PN ---
Subjective Progress Note Date: 05/11/23 Principal diagnosis: Reason for follow-up is bilateral lower extremity cellulitis Patient is a 72-year-old female with a past medical history significant for diabetes mellitus DVT osteoarthritis pneumonia patient was brought into the hospital for evaluation of increasing swelling to bilateral lower extremity, patient has been diagnosed with bilateral lower extremity cellulitis. On today's evaluation that is 05/11/2023 the patient remains to be afebrile patient is currently on 4 L nasal cannula oxygen patient currently complaining of a dry hacking cough unable to bring up any sputum some nausea vomiting no abdominal pain and no diarrhea patient lower extremity swelling and redness has decreased and denies any worsening pain to the leg. Patient did not have any lab draw today Objective - Vital Signs Vital signs: Vital Signs Temp 97.7 F 05/11/23 13:13 Pulse 84 05/11/23 13:13 Resp 18 05/11/23 13:13 BP 134/73 05/11/23 13:13 Pulse Ox 91 L 05/11/23 13:13 FiO2 Intake & Output 05/10/23 05/11/23 05/11/23 18:59 06:59 18:59 Intake Total 100 Output Total 700 1200 Balance -600 -1200 Weight 127 kg Intake: Intake, IV Titration 100 Amount Cefepime 2 gm In Sodium 100 Chloride 0.9% 100 ml @ 25 mls/hr IVPB Q8HR [facility] Rx# :[id number] Output: Urine 700 1200 Other: Voiding Method Diaper Diaper Diaper Incontinent Incontinent Incontinent External Catheter External Catheter External Catheter # Voids 1 # Bowel Movements 1 1 - Exam GENERAL DESCRIPTION: An elderly female lying in bed in no distress RESPIRATORY SYSTEM: Unlabored breathing , clear to auscultation anteriorly HEART: S1 S2 regular rate and rhythm , ABDOMEN: Soft , no tenderness EXTREMITIES: Bilateral lower extremity covered with compression stocking with no drainage - Labs CBC & Chem 7: 05/12/23 05:58 05/12/23 05:58 Labs: Abnormal Lab Results - Last 24 Hours (Table) 05/10/23 05/10/23 05/11/23 Range/Units 17:11 20:18 07:16 POC Glucose (mg/dL) 277 H 314 H 184 H (70-110) mg/dL 05/11/23 Range/Units 12:15 POC Glucose (mg/dL) 224 H (70-110) mg/dL Microbiology - Last 24 Hours (Table) 05/06/23 20:00 Gram Stain - Final Sputum Sputum Culture - Final Pseudomonas aeruginosa Assessment and Plan (1) Bilateral lower leg cellulitis Current Visit: Yes Status: Acute Code(s): L03.116 - CELLULITIS OF LEFT LOWER LIMB; L03.115 - CELLULITIS OF RIGHT LOWER LIMB SNOMED Code(s): 927136199 (2) Penicillin allergy Current Visit: Yes Status: Acute Code(s): Z88.0 - ALLERGY STATUS TO PENICILLIN SNOMED Code(s): 98989014 (3) Abnormal chest x-ray Current Visit: Yes Status: Acute Code(s): R93.89 - ABNORMAL FINDINGS ON DX IMAGING OF OTH BODY STRUCTURES SNOMED Code(s): 899005353 Plan: 1patient presented to hospital with increasing swelling to bilateral lower extremity patient did have evidence of erythema warmth and tenderness to touch concerning for cellulitis likely from gram-positive skin poli such as trapped less likely MRSA or gram-negative infection 2-patient local wound care continue with silver dressing to the open area followed by Matthias wrap dressing to be changed every 72 hours 3patient did have hematuria with evidence of bilateral renal stones being monitored by urology urine is growing Pseudomonas and the sputum is showing gram-negative bacilli with ID sensitivities pending 4- patient will continue with the cefepime while waiting for the sputum culture to finalize to determine her discharge antibiotics Dictation was produced using [email or web address] dictation software. please excuse any grammatical, word or spelling errors. Time with Patient: Less than 30
--- NOTE | 2023-05-12 23:47 | P.PN ---
Subjective Progress Note Date: 05/12/23 Principal diagnosis: Reason for follow-up is bilateral lower extremity cellulitis Patient is a 72-year-old female with a past medical history significant for diabetes mellitus DVT osteoarthritis pneumonia patient was brought into the hospital for evaluation of increasing swelling to bilateral lower extremity, patient has been diagnosed with bilateral lower extremity cellulitis. On today's evaluation that is 05/12/2023 the patient continues to be afebrile patient is breathing comfortably on 4 L nasal cannula oxygen however still complaining of a dry hacking cough unable to bring up any sputum some nausea vomiting no abdominal pain and no diarrhea patient lower extremity swelling has decreased in intensity currently using Matthias wrap for compression Patient did have a white count of 9.40 creatinine is 1.0 Objective - Vital Signs Vital signs: Vital Signs Temp 97.4 F L 05/12/23 07:31 Pulse 84 05/12/23 07:49 Resp 18 05/12/23 07:31 BP 143/82 05/12/23 07:31 Pulse Ox 93 L 05/12/23 07:31 FiO2 Intake & Output 05/11/23 05/12/23 05/12/23 18:59 06:59 18:59 Intake Total 590 Output Total 1100 301 401 Balance -1100 289 -401 Weight 126.6 kg Intake: Oral 590 Output: Urine 1100 300 400 Stool 1 1 Other: Voiding Method Diaper Diaper Diaper Incontinent Incontinent Incontinent External Catheter External Catheter External Catheter - Exam GENERAL DESCRIPTION: An elderly female lying in bed in no distress RESPIRATORY SYSTEM: Unlabored breathing ,coarse breath sounds bilaterally HEART: S1 S2 regular rate and rhythm , ABDOMEN: Soft , no tenderness EXTREMITIES: Bilateral lower extremity covered with compression stocking with no drainage - Labs CBC & Chem 7: 05/12/23 05:58 05/12/23 05:58 Labs: Abnormal Lab Results - Last 24 Hours (Table) 05/11/23 05/11/23 05/11/23 Range/Units 12:15 17:10 20:23 MCHC (32.0-37.0) g/dL RDW (11.5-14.5) % Immature Gran # (0.00-0.04) X 10*3/uL Lymphocytes # (0.90-5.00) X 10*3/uL Eosinophils # (0.04-0.35) X 10*3/uL Anion Gap (4.00-12.00) mmol/L BUN (9.0-27.0) mg/dL BUN/Creatinine Ratio (12.00-20.00) Ratio Glucose (70-110) mg/dL POC Glucose (mg/dL) 224 H 213 H 319 H (70-110) mg/dL AST (13-35) U/L ALT (8-44) U/L Albumin (3.8-4.9) g/dL Albumin/Globulin Ratio (1.60-3.17) Ratio 05/12/23 05/12/23 05/12/23 Range/Units 05:58 05:58 07:33 MCHC 29.5 L (32.0-37.0) g/dL RDW 15.2 H (11.5-14.5) % Immature Gran # 0.09 H (0.00-0.04) X 10*3/uL Lymphocytes # 0.84 L (0.90-5.00) X 10*3/uL Eosinophils # 0.70 H (0.04-0.35) X 10*3/uL Anion Gap 12.10 H (4.00-12.00) mmol/L BUN 34.5 H (9.0-27.0) mg/dL BUN/Creatinine Ratio 34.50 H (12.00-20.00) Ratio Glucose 198 H (70-110) mg/dL POC Glucose (mg/dL) 186 H (70-110) mg/dL AST 12 L (13-35) U/L ALT 7 L (8-44) U/L Albumin 3.5 L (3.8-4.9) g/dL Albumin/Globulin Ratio 1.13 L (1.60-3.17) Ratio Assessment and Plan (1) Bilateral lower leg cellulitis Current Visit: Yes Status: Acute Code(s): L03.116 - CELLULITIS OF LEFT LOWER LIMB; L03.115 - CELLULITIS OF RIGHT LOWER LIMB SNOMED Code(s): 794315586 (2) Penicillin allergy Current Visit: Yes Status: Acute Code(s): Z88.0 - ALLERGY STATUS TO PENICILLIN SNOMED Code(s): 09490856 (3) Abnormal chest x-ray Current Visit: Yes Status: Acute Code(s): R93.89 - ABNORMAL FINDINGS ON DX IMAGING OF OTH BODY STRUCTURES SNOMED Code(s): 745280076 Plan: 1patient presented to hospital with increasing swelling to bilateral lower extremity patient did have evidence of erythema warmth and tenderness to touch concerning for cellulitis likely from gram-positive skin poli such as trapped less likely MRSA or gram-negative infection 2-patient local wound care continue with silver dressing to the open area followed by Matthias wrap dressing to be changed every 72 hours 3patient did have hematuria with evidence of bilateral renal stones being monitored by urology urine is growing Pseudomonas , Sputum culture has been finalized with Pseudomonas aeruginosa that is sensitive to cefepime and Cipro. 4patient to continue cefazolin while inpatient however patient will be able to finish therapy with oral Cipro prescription sent to the pharmacy at the bedside multiple questions concern answered Dictation was produced using [employer] dictation software. please excuse any grammatical, word or spelling errors. Time with Patient: Less than 30
[2023-05-13 07:56] LABS: Glucose,Whole Blood 185 mg/dL (70-110)
[2023-05-13] MEDS: IPRATROPIUM-ALBUTEROL 3 ML NEB INHALATION SCH ×2 (08:06→11:42)
[2023-05-13] MEDS: INSULIN ASPART (NovoLOG) 100 UNIT/ML VIAL SQ SCH ×2 (09:03→12:39)
[2023-05-13] MEDS: ENOXAPARIN 40 MG/0.4 ML SYRINGE SQ SCH (09:06)
[2023-05-13] MEDS: CHOLECALCIFEROL 25 MCG (1000 IU) TABLET PO SCH (09:07)
[2023-05-13] MEDS: BENZONATATE 100 MG CAP PO SCH (09:07)
[2023-05-13] MEDS: METOPROLOL SUCCINATE (ER) 25 MG TAB.ER.24H PO SCH (09:07)
[2023-05-13] MEDS: ASPIRIN 81 MG PO SCH (09:07)
[2023-05-13] MEDS: PANTOPRAZOLE 40 MG TABLET PO SCH (09:07)
[2023-05-13] MEDS: FUROSEMIDE 40 MG TAB PO SCH (09:07)
[2023-05-13] MEDS: DAPAGLIFLOZIN PROPANEDIOL 10 MG TABLET PO SCH (09:07)
[2023-05-13] MEDS: ATORVASTATIN 20 MG TAB PO SCH (09:07)
[2023-05-13] MEDS: metFORMIN 500 MG TAB PO SCH (09:07)
[2023-05-13] MEDS: CEFEPIME 2 GM in SODIUM CHLORIDE 0.9% 100 ML IVPB SCH (09:07)
[2023-05-13] MEDS: SPIRONOLACTONE 25 MG TAB PO SCH (09:07)
[2023-05-13] MEDS: NYSTATIN 100,000 UNIT/GM POWD 15 GM TOPICAL SCH (09:08)
--- NOTE | 2023-05-13 11:39 | P.PN ---
Subjective Progress Note Date: 05/13/23 72-year-old female seen in the emergency department, room 15. She's here with her . She apparently presented to the emergency department, on April 24, with multiple complaints including leg swelling, shortness of breath, cough, and generally just not feeling well. She also has some tingling to her hands bilaterally, and apparently has been seen by one of the hand surgeons. The patient is laying flat in bed. She is on a couple liters of oxygen. She's not receiving any IV fluids. She tells me that she has cellulitis of the lower extremities. She is a rather large woman. She also tells me that her only major medical problem is diabetes mellitus. Although, she apparently has a hist ory of DVT, osteoarthritis, and pneumonia. She also has a previous history of kidney stones, status post lithotripsy. Current labs include a white count 6.6, hemoglobin 12.9, hematocrit 42.6, and a platelet count of 101,000. D-dimer is 2.31. Venous blood gases showed CO2 49 and a pH is 7.36. Sodium 140, potassium 4.7, chlorides 105, CO2 25, BUN 22, creatinine 0.69. The N-terminal proBNP is e levated at 5250. Troponins were negative 2. Urine showed 2+ protein and moderate blood and large leukocyte esterase, 93 RBCs 74 WBCs, rare bacteria, and occasional mucus. Testing for coronavirus was negative. Chest x-ray showed changes consistent with pulmonary edema/fluid overload. CT angiogram was negative for pulmonary embolism. Doppler of the lower semis was negative for DVT. Progress note dated 04/26/2023. 72-year-old obese female seen yesterday in the emergency department. Today, she is seen in room 368. The patient's currently on 3 L of oxygen. She is receiving Lasix and her fluid overload, and Ancef, for her lower extremity edema. Her lower extremity edema is a bit better today. She does feel a bit better today, less short of breath. Current laboratory data includes a glucose of 181. Testing for harper virus was negative. Troponin was less than 0.012, 2. Progress note dated 04/27/2023. 73-year-old female initially seen in the emergency department, but is seen in room 368 today. She continues on oxygen at 3 L. No IV fluids. For her cough, we ordered some Tessalon Perles. In addition, she continues on Ancef for her bilateral lower extremity cellulitis. Also, she is receiving diuretics, for her pulmonary edema. Today's laboratory data includes a glucose of 137. Testing for harper virus was negative. Blood cultures are negative. On today's evaluation of 04/28/2023, I'm seeing the patient for a follow-up. She is on 10 L of oxygen by nasal cannula. She is in for increased lower extremity edema, hypoxic respiratory failure, lower extremity infection. The patient has some mild cardiomegaly on her CT angiogram. No evidence of any pulmonary embolism. Her echocardiogram showed LV function with ejection fraction of 50-55%. She has severe RV dilatation and severe pulmonary hypertension and she may have an underlying obstructive sleep apnea. No recent CBC, most recent electrolytes show a BUN of 34 with a creatinine 1.1 and sodium level is at 138. She is currently on oxygen at 10 L she is on IV cefazolin. She is also on oral Lasix 40 mg by mouth daily. She remains on bronchodilators with albuterol HFA, IV Solu-Medrol 20 mg every 8 hours and Lovenox 40 mg subcu portably prophylaxis. On 04/29/2023, the patient is sitting up in a recliner. Doing well. She is down to 6 L of oxygen nasal cannula. She is still on Lasix. She is in a negative fluid balance. Labs from today are still pending. No other significant events overnight. No angina. No palpitations. No chest pain. Remains on albuterol HFA, IV Solu-Medrol 20 mg every 8 hours then Lovenox 40 mg subcu for DVT prophylaxis. On 04/30/2023, the patient is being seen for a follow-up. Doing well. No new complaints. The patient has been weaned down to 5 L of oxygen by nasal cannula with a pulse ox of 95%. The patient is diuresing adequately and the patient is a negative fluid balance of at least 2 L over the past 24 hours. The patient is currently on Lasix 40 mg by mouth daily. The patient is still on IV cefazolin regarding lower extremity cellulitis. Edema still present in the legs bilaterally. Blood work from today shows a BUN of 44 with a creatinine of 0.7. Sodium level is at 138. The risks count of 9.3 with a hemoglobin 15.1 and a platelet count of 243. No chest pain. No interval worsening shortness of breath. On 05/01/2023, the patient has been weaned down to 5 L. Her current pulse ox is 93%. She is making excellent urine output. Overall fluid balance is -2 L over the past 24 hours. She remains on Lasix 40 mg by mouth and the dose was increased up to twice a day. She remains on IV cefazolin. Lower extremity cellulitis is also improving. Mentally she is awake and alert and communicating. She is trying to increase her mobility. She is working with physical therapy. Blood work shows a sodium level of 141, BUN is 34 with a creatinine of 0.6. LFTs are normal. The viscosity 0.8 with a hemoglobin 15.4 and a platelet count of 178. on today's evaluation of 05/02/2023, the patient is still on 5 L of O2 nasal cannula. She is producing excellent urine output. There is significant improvement in lower extremity edema and the wound over the right lower extremity so is essentially eating at this point in time. There is no active drainage. The wound is very healthy-looking. Edema lower extremity is also improving. Meanwhile, the patient remains on oral Lasix. Fluid balance is negative at least 2 L over the past 24 hours.White cell count of 8.2 with a hemoglobin of 13.4 and a platelet count of 181. BUN is at 28 with a creatinine of 0.6 and a sodium level is at 140. Potassium levels at 4.0. The patient re atif on IV cefazolin. The patient is on Lasix 40 mg by mouth twice a day. Rest of the medications remain unchanged. The patient and KVO. We will balance is -2.3 L over the past 24 hours. On 05/03/2023, no new complaints. The patient is sitting up on a chair. She is currently on room air oxygen. Oxygen saturation is improved. The patient was transferred to the [facility]. The fluid balance is negative at least 2.3 L. The labs are all stable, the viscosity 11.1, he was 13.8, serum bicarbonate is 41, BUN is 28 with a creatinine of 0.66 05/04/2023, condition is stable. Still on 5 L of O2 nasal cannula. She patient continues to the stable and saturations improved. We should be able to wean down FiO2. No new complaints otherwise for now. The patient is seen today 05/05/2023 in follow-up on the regular medical floor. She is currently resting in bed. Awake and alert in no acute distress. She denies any worsening shortness of breath, cough or congestion. He is maintainin g O2 saturation in the 90s on 3 L/m per nasal cannula. She's afebrile. Hemodynamically stable. Blood cultures revealed no growth. White count 12.2. Hemoglobin 13.5. Platelets 232. Sodium 138. Potassium 3.7. Bicarb 25. BUN 29. Creatinine 0.83. Glucose 173. She is continued on DuoNeb inhalations. Remains on antibiotics in the form of cefazolin. Continued on oral diuretics. Currently in a negative balance. The patient is seen today 05/06/2023 in follow-up on the regular medical floor. She is currently laying flat in bed. Awake and alert in no acute distress. Denies any worsening shortness of breath. She continues with a dry nonproductive cough. She is maintaining good O2 saturations in the 90s on 4 L/m per nasal cannula. She's afebrile. Hemodynamically stable. Follow-up chest x- ray shows mild cardiomegaly and ongoing interstitial densities. Mild pulmonary vascular congestion. Patchy density in the right midlung. I count 10.4. Hemoglobin 12.9. Platelets 218. Glucose 159. She continues on bronchodilators. Oral diuretics. Lovenox for DVT prophylaxis. Remains on cefazolin per ID services. The patient is seen today 05/07/2023 in follow-up on the regular medical floor. She is sitting up in bed. Awake and alert. Having breakfast. Denies any worsening shortness of breath, cough or congestion. Maintaining O2 saturations in the 90s on 4 L/m per nasal cannula. She's been afebrile. Hemodynamically stable. Glucose 156. She remains on Diamox, Lasix, Aldactone. Continued on bronchodilators, Tessalon Perles. Lovenox for DVT prophylaxis. Antibiotics in the form of Omnicef. The patient is seen today 05/08/2023 in follow-up on the regular medical floor. She remains awake and alert in no acute distress. Continues with a cough with occasional yellow phlegm. No fever chills. No chest pain. Pro-calcitonin was 0.10. She continues to maintain good O2 saturations in the 90s on 4 L/m per nasal cannula. She's been afebrile. Hemodynamically stable. During culture positive for gram-negative bacilli. Blood cultures revealed no growth. Follow- up chest x-ray today continues to show evidence of fluid volume overload. Count 9.7. Hemoglobin 12.7. Platelets 249. Sodium 140. Potassium 4.0. Bicarb 27. BUN 30. Creatinine 0.8. Glucose 184. AST 11. ALT 6. He is continued on DuoNeb inhalations, Tessalon Perles, antibiotics in the form of Omnicef. She is on Lasix 40 mg by mouth twice a day long with Aldactone 25 mg daily. The patient is seen today 05/09/2023 in follow-up on the regular medical floor. She is resting comfortably in bed. Awake and alert in no acute distress. Maintaining good O2 saturations in the 90s on 4 L/m per nasal cannula. Today's chest x-ray continues to show cardiomegaly there is improvement in the pulmonary venous congestion. She remains on IV diuretics. Currently in a -2 L balance. She had undergone urogram CT today. Results are pending. Yesterday she had some complaints of right knee pain. X-ray revealed no acute osseous pathology. Urine culture had been positive for pseudomonas aeruginosa. Sputum culture showing gram-negative bacilli. White count 14.9. Hemoglobin 13.3. Platelets 277. Sodium 140. Potassium 4.1. Bicarb 29. BUN 29. Creatinine 1.0. Glucose 188. ProBNP 1320. She is continued on DuoNeb inhalations, Tessalon Perles, antibiotics in the form of Omnicef. She is on Lasix 40 mg IV 8 hours, Aldactone 25 mg twice a day. The patient is seen today 05/10/2023 in follow-up on the regular medical floor. She is awake and alert in no acute distress. Resting fairly comfortably in bed. Denies any worsening shortness of breath, cough or congestion. She is maintai nancy O2 saturations in the mid 90s on 4 L/m per nasal cannula. She's been afebrile. Hemodynamically stable. She's been up ambulating in her room to the bathroom with assistance. Spending more time up in a chair as encouraged. Urogram CT revealed opacity in the right lower lobe. Large lobulated cyst of the right kidney measuring 7.9 cm. Smaller 2.5 cm cyst of the left kidney. No suspicious renal mass or hydronephrosis is seen. There is bilateral nonobstructive renal calculi measuring up to 9 mm on the right. She continues to deny any flank pain. Urine culture was positive for pseudomonas aeruginosa. Sputum culture with gram-negative bacilli. She is currently on cefepime per ID services. Remains on IV diuretics. Currently in a negative balance. Remains on bronchodilators. Tessalon Perles and Robitussin as needed for her cough. Lovenox for DVT prophylaxis. The patient is seen today 05/11/2023 in follow-up on the regular medical floor. She is resting comfortably in bed. Awake and alert in no acute distress. She is maintaining O2 saturations in the 90s on 4 L/m per nasal cannula. She's afebrile. Hemodynamically stable. Her blood cultures revealed no growth. Uri ne culture was positive for pseudomonas aeruginosa. Sputum culture is positive for pseudomonas aeruginosa. She is being followed by infectious disease. She remains on cefepime. She is continued on DuoNeb inhalations, Tessalon Perles and Robitussin for cough. Remains on IV diuretics. Currently in a -1.8 L balance. Glucose level 184. The patient is seen today 05/12/2023 in follow-up on the regular medical floor. She is awake and alert in no acute distress. Resting comfortably in bed. Ángela ntaining O2 saturations in the 90s on 4 L/m per nasal cannula. She is still having ongoing issues with a dry nonproductive cough. No worsening shortness of breath, cough or congestion. Blood culture revealed no growth. Urine culture was positive for pseudomonas aeruginosa. Sputum culture was positive for pseudomonas aeruginosa. White count 9.4. Hemoglobin 13.2. Platelets 258. Sodium 139. Potassium 4.1. Bicarb 29. BUN 35. Creatinine 1.0. Glucose 198. She remains on IV diuretics. Remains in a negative balance. Continue bronchodilators, Tessalon Perles and Robitussin for her cough. Remains on antibiotics in the form of cefepime. The patient is seen today 05/13/2023 in follow-up on the regular medical floor. She remains awake and alert in no acute distress. Remains resting comfortably in bed. Remains on 4 L nasal cannula. Chest x-ray continues to show basilar atelectasis. His again encouraged regarding increased use of the incentive spirometer. She remains on oral diuretics. Remains on bronchodilators, cough suppressants. Of the lower extremities has improved. Her blood cultures reveal no growth. Urine culture and sputum cultures positive for pseudomonas. C urrently on cefepime. Blood glucose 185. Objective - Vital Signs Vital signs: Vital Signs Temp 97.9 F 05/13/23 07:52 Pulse 88 05/13/23 08:17 Resp 21 05/13/23 07:52 BP 136/84 05/13/23 07:52 Pulse Ox 94 L 05/13/23 07:52 FiO2 Intake & Output 05/12/23 05/13/23 05/13/23 18:59 06:59 18:59 Output Total 1201 625 Balance -1201 -625 Output: Urine 1200 625 Stool 1 Other: Voiding Method Diaper Diaper Diaper Incontinent Incontinent Incontinent External Catheter External Catheter External Catheter # Voids 2 1 # Bowel Movements 1 - Exam GENERAL EXAM: Alert, morbidly obese 72-year-old female, on 4 L nasal cannula, comfortable in no apparent distress. HEAD: Normocephalic. EYES: Normal reaction of pupils, equal size. NOSE: Clear with pink turbinates. THROAT: No erythema or exudates. NECK: No masses, no JVD. CHEST: No chest wall deformity. LUNGS: Equal air entry with few scattered rhonchi, crackles in the posterior bas es. CVS: S1 and S2 normal with no audible murmur, regular rhythm. ABDOMEN: Obese, normal bowel sounds, no guarding or rigidity. SPINE: No scoliosis or deformity SKIN: His of chronic venous stasis of the bilateral lower extremities with cellulitis. CENTRAL NERVOUS SYSTEM: No focal deficits, tone is normal in all 4 extremities. EXTREMITIES: Cellulitis of the bilateral lower extremities, improving, Matthias wraps in place. Less edema. No clubbing, no cyanosis. Peripheral pulses are intact. - Labs CBC & Chem 7: 05/12/23 05:58 05/12/23 05:58 Labs: Abnormal Lab Results - Last 24 Hours (Table) 05/12/23 05/12/2323 Range/Units 12:04 17:11 20:12 POC Glucose (mg/dL) 245 H 204 H 266 H (70-110) mg/dL 05/13/23 Range/Units 07:54 POC Glucose (mg/dL) 185 H (70-110) mg/dL Assessment and Plan Assessment: Acute hypoxic respiratory failure, currently on 4 L of oxygen by nasal cannula. Shortness of breath is multifactorial. There is an obvious component of CHF with preserved LV function and severe right-sided heart failure with RV dysfunction and fluid overload. Follow-up chest x-ray shows improvement in the fluid volume overload and interstitial edema. Sputum culture with pneumonias aeruginosa. On cefepime. Right ventricular failure with severe pulmonary hypertension Cellulitis, bilateral lower extremities. Treated with Omnicef, wound shows si gnificant improvement Urinary tract infection secondary to pseudomonas aeruginosa, treated with cef epime Morbid obesity History of diabetes mellitus History of vitamin D deficiency Prior history of DVT History of osteoarthritis History of pneumonia History of kidney stones with intermittent gross hematuria Stress urinary incontinence Plan: The patient was seen and evaluated Labs and medications reviewed Continue bronchodilators Antibiotics per ID services Increase her activity as tolerated Titrate her FiO2 as tolerated Should be out of bed as much as possible Encouraged the increased use of the incentive spirometer Plan is for inpatient rehabilitation post discharge This patient was seen independently by the nurse practitioner who performed the pulmonary medical decision making I have personally seen and examined the patient, performed the documentation and the assessment and plan as written. Number of minutes spent on the visit: 23.
--- NOTE | 2023-05-13 12:17 | P.DS ---
Providers Date of admission: 04/24/23 18:56 Expected date of discharge: 05/13/23 Attending physician: Pat Angulo Consults: 04/24/23 18:56 Consult Physician Routine Consulting Provider: Malik Carrasquillo Consult Reason/Comments: CHF, new onset Do you want consulting provider notified?: Yes 04/25/23 09:00 Consult Physician Routine Consulting Provider: Raheel Manzano Consult Reason/Comments: CTA result. possible pneumonia Do you want consulting provider notified?: Yes 04/25/23 10:27 Consult Physician Routine Consulting Provider: Ramandeep English Consult Reason/Comments: cellulitis, uti Do you want consulting provider notified?: Yes 05/01/23 16:29 Consult Physician Routine Consulting Provider: Jules Reyes Consult Reason/Comments: CHF Do you want consulting provider notified?: Yes 05/07/23 15:43 Consult Physician Routine Consulting Provider: Ayush Nicole Consult Reason/Comments: hematuria Do you want consulting provider notified?: Yes 05/08/23 08:50 Consult Physician Routine Consulting Provider: Nicole Torres Consult Reason/Comments: possible inpatient rehab admission Do you want consulting provider notified?: Yes 05/08/23 11:50 Consult Physician Routine Consulting Provider: Antony Britt Consult Reason/Comments: rt knee pain Do you want consulting provider notified?: Yes Primary care physician: Pat Angulo [facility] Course: Diagnosis on discharge: 1. Shortness of breath, related to acute congestive heart failure exacerbation and possible pneumonia 2. CHF exacerbation. Noted elevated BNP. 2-D echo ordered patient started on IV Lasix 3. Elevated d-dimer. CTA performed negative venous Doppler 4. Possible pneumonia. Pulmonary service is consulted 5. Urinary tract infection urine culture ordered 6. Lower extremity cellulitis. Patient started on IV antibiotics infectious disease service is consulted 7. History of diabetes mellitus 8. History of DVT 9. History of pneumonia 10. History of macular degeneration 11. Elevated CO2 patient started Diamox 12. Hematuria. With evidence of bilateral kidney stones , Urology service is following 13. Knee pain. Orthopedic service consulted Hospital course: Lorene Palma, is a 72-year-old female who presented with multiple complaints that have been occurring over the past few weeks. Patient reports she's had increased swelling to the lower extremity with weeping ulcers. Patient also reports she's had increased shortness of breath and cough. Patient also reports she's had tingling to hands bilaterally but has followed up with orthopedic surgeon outpatient. Patient has a past medical history of diabetes mellitus, DVT, I disorder, osteoporosis, pneumonia and macular degeneration. Chest x-ray completed showing marked interstitial phase pulmonary edema presumably cardiogenic etiology. Lab work revealing elevated d-dimer 2.31. CT of the chest performed showing trace pericardial effusion, scattered reticular infiltrates in the right upper lobe and both lung bases consider viral or interstitial pneumonia. Pulmonary arterial tree is adequately opacified with contrast no large central emboli are visible there is under opacification of a small segmental branch in the left lower lobe laterally no discrete thrombus is visible. This is of questioned significance small segmental pulmonary embolism cannot be excluded. Aortic arch is mildly calcified but nondilated. Will consult pulmonary services. Venous Doppler completed no deep vein thrombosis identified. Troponins negative. BNP elevated at 5250. UA positive for urinary tract infection. At this time patient will be admitted cardiology pulmonary service is consulted. Bilateral lower extremities noted for cellulitis. Infectious disease service is consulted patient started on IV antibiotics. 2-D echo ordered. COVID-19 negative. Patient started on IV Lasix On 04/26/2023 patient was seen and examined on the telemetry floor she is alert and oriented 3 in no apparent distress, she is complaining of bilateral lower extremity pain, site of cellulitis and ulcers, she is also complaining of left shoulder pain and shortness of breath with any activity, otherwise she denies any complaints there is no fever or chills no headache or dizziness no chest pain no cough no nausea or vomiting no abdominal pain no diarrhea no blood in the stools no burning with urination no frequency or urgency and no hematuria. At this time awaiting further recommendation from cardiology. Patient is maintained on IV antibiotic for bilateral lower extremity cellulitis with ulcers, awaiting further input from infectious disease. On 04/27/2023 patient alert and oriented 3. Patient reports improvement with lower infection many pain. Patient remains on IV cefazolin. Tessalon pearls added for cough. Pulmonary cardiology and infectious disease service is consulted. Vital signs temp 98.3, heart rate 97, respiratory rate 18, blood pressure 119/63 with pulse ox of 91% on 2 L On 04/28/2023 patient was seen and examined on the telemetry floor she is alert and oriented 3 in no apparent distress yesterday she had worsening shortness of breath at night with significant drop in her O2 sat duration down to the 70s O2 supplements was increased to 15 L high flow, pulmonary and cardiology are following patient is improving gradually during the day today, repeat chest x- ray ordered will follow closely. On 04/29/2023 patient is alert and oriented 3. Sliding scale insulin added. 97.9, heart rate 76, respiratory rate 14, blood pressure 112/73 with pulse ox of 94% on 6 L. Patient remains on IV Kefzol and IV steroids On 04/30/2023 patient is alert and oriented 3. Patient reports improvement with shortness of breath and bilateral leg pain. Oxygen decreasing to 5 L. Per pulmonary services steroids have been DC'd. Patient remains on IV antibiotics. Pulmonary, cardiology and infectious disease services following. Current vital signs temp 97.9, heart rate 80, respiratory rate 18, blood pressure 115/73 with pulse ox 93% on 5 L On 05/01/2023 patient was seen and examined on the telemetry floor she is alert and oriented 3 in no apparent distress there is no fever or chills no headache or dizziness she is still having shortness of breath she is still requiring 4 L of oxygen there is no chest pain no cough no nausea or vomiting no abdominal pain no diarrhea and no urinary symptoms, she remains on IV cefazolin for bilateral lower extremity cellulitis with ulcers. On 05/02/2023 patient is alert and oriented 3. Current vital signs temp 98, heart rate 86, respiratory rate 22, blood pressure 128/76 with a pulse ox 92% on 5 L. By mouth Lasix increased to twice daily. Patient remains on IV antibiotics. Infectious disease pulmonary and cardiology services following On 05/03/2023 patient alert and oriented 3 currently sitting up in chair. Patient was started on Diamox for elevated CO2. Patient also started on Aldactone per cardiology services. Pulmonary cardiology service is currently following. Current vital signs temp 97.9, pulse rate 79, respiratory rate 18, blood pressure 122/84 with a pulse ox 90% on 5 L On 05/04/2023 patient was seen and examined on the medical floor, she is alert and oriented 3 in no apparent distress, she is still complaining of shortness of breath with any activity, she is also complaining of bilateral lower extremity edema erythema and tenderness, there is a large ulcer on the right pretibial area. Patient remains on oxygen supplements at 5 L/m, she remains on Lasix and Aldactone and Diamox vital exam reveals a temperature of 98.3 pulse 72 respiration 18 blood pressure 123/71 pulse ox 93% on 5 L nasal cannula, labs today are still pending. On 05/05/2023 patient was seen and examined on the medical floor she is alert and oriented 3 in no apparent distress there is no fever or chills no headache or dizziness no chest pain no shortness of breath at rest, she is still having significant shortness of breath with any activity she is still maintained on oxygen 3 L nasal cannula, she is still having some cough no nausea or vomiting no abdominal pain no diarrhea and no urinary symptoms. Patient is maintained on Ancef for bilateral lower extremity cellulitis infectious disease following, will recheck labs and follow-up in the am On 05/06/2023 patient's alert and oriented 3. Still complaining of some shortness breath and coughing. Pulmonary services are following. Current vital signs temp 97.9, heart rate 79, respiratory rate 16, blood pressure 107/70 with a pulse ox of 93% on 4 L Chest x-ray done yesterday revealed evidence of cardiomegaly with ongoing interstitial densities and patchy density at the right mid lung which is increas ing. On 05/07/2023 patient is alert and oriented 3. Sputum culture ordered per pulmonary. Ultrasound of bladder and abdomen completed results pending. Vital signs temp 98.2, her 85, respiratory rate 16, blood pressure 117/76 with pulse ox of 91% on 4 L. On 05/08/2023 patient is alert and oriented 3. Pulmonary services are following. Orthopedic services and urology services consulted. Patient still complaining of some shortness of breath. Patient denies chest pain. Patient denies nausea vomiting or diarrhea. Patient denies any urinary burning or frequency On 05/09/2023 patient's alert and oriented 3. Patient has been started on IV Lasix per pulmonary. orthopedic services evaluated continue conservative management for knee pain. Urology service is following for hematuria. Patient playing of dry cough. Patient denies chest pain. Patient denies nausea vomiting or diarrhea. Patient denies any urinary burning or frequency. On 05/10/2023 patient was seen and examined on the medical floor she is alert and oriented 3 in no apparent distress she is sitting up in a chair she is complaining of cough and shortness of breath with any activity otherwise she denies any complaints there is no fever or chills no headache or dizziness no chest pain or vomiting no abdominal pain no diarrhea no blood in the stools no burning with urination no frequency or urgency . On 05/11/2023 patient's alert and oriented 3. Patient remains on IV Maxipime per infectious disease awaiting culture finalization. Patient also proved for home oxygen. continues to express that she is not ready to go home due to continued cough. Patient remains on IV Lasix. Patient denies chest pain. Patient denies nausea vomiting or diarrhea. Patient denies any urinary burning or frequency. Current vital signs temp 98.2, pulse rate 80, respiratory rate 20, blood pressure 144/76 with pulse is 92% on 4 L On 05/12/2023 patient was seen and examined on the medical floor she is alert a nd oriented 3 in no apparent distress there is no fever or chills no headache or dizziness no chest pain no shortness of breath at rest, she is still having significant shortness of breath with any activity she is still maintained on oxygen 4 L nasal cannula, she is still complaining of cough no nausea or vomiting no abdominal pain no diarrhea and no urinary symptoms. Patient is maintained on Cefepime for bilateral lower extremity cellulitis, urinary tract infection and possible pneumonia, urine and sputum culture positive for Pseudomonas aeroginosa, infectious disease following, will recheck labs and follow-up in the am, plan is for transfer to inpatient rehab in am. On 05/13/2023 patient was seen and examined on the medical floor she is alert and oriented 3 in no apparent distress there is no fever or chills no headache or dizziness no chest pain no shortness of breath at rest, she is still having significant shortness of breath with any activity she is still maintained on oxygen 4 L nasal cannula, she is still complaining of cough no nausea or vomiting no abdominal pain no diarrhea and no urinary symptoms. Patient is maintained on Cefepime for bilateral lower extremity cellulitis, urinary tract infection and possible pneumonia, urine and sputum culture positive for Pseudomonas aeroginosa, infectious disease following, will recheck labs and follow-up in the am, plan is for transfer to inpatient rehab today. Patient Condition at Discharge: Fair Plan - Discharge Summary Discharge Rx Participant: No New Discharge Prescriptions: New Spironolactone [Aldactone] 25 mg PO BID tab Furosemide [Lasix] 40 mg PO BID@0900,1600 tab Pantoprazole [Protonix] 40 mg PO AC-BRKFST tab Benzonatate [Tessalon Perles] 200 mg PO TID cap Metoprolol Succinate (ER) [Toprol XL] 25 mg PO BID tab Ciprofloxacin HCl [Cipro] 750 mg PO Q12H 10 Days #20 tab bisacodyL [Dulcolax] 5 mg PO DAILY PRN tab PRN Reason: Constipation Ipratropium-Albuterol Nebulize [Duoneb 0.5 mg-3 mg/3 ml Soln] 3 ml INHALATION RT-QID each Dapagliflozin Propanediol [Farxiga] 10 mg PO DAILY tab Atorvastatin [Lipitor] 20 mg PO DAILY tab Nystatin 100,000 Unit/gm Powd [Mycostatin Powder] 1 applic TOPICAL TID each guaiFENesin-Coden 100-10MG/5ML [Robitussin AC] 10 ml PO Q6HR PRN ml PRN Reason: Cough Continue metFORMIN HCL [Glucophage] 500 mg PO BID Aspirin EC [Ecotrin Low Dose] 81 mg PO BID Albuterol Sulfate [Proair Hfa] 2 puff INHALATION RT-Q6H PRN PRN Reason: Shortness Of Breath Acetaminophen [Tylenol 8 Hour] 650 mg PO Q8H PRN PRN Reason: Pain Tolterodine ER [Detrol LA] 4 mg PO HS Cholecalciferol [Vitamin D3 (25 Mcg = 1000 Iu)] 25 mcg PO BID Discontinued traMADol HCl [Ultram] 50 mg PO TID PRN PRN Reason: Pain Discharge Medication List Acetaminophen [Tylenol 8 Hour] 650 mg PO Q8H PRN 12/01/18 [History] Albuterol Sulfate [Proair Hfa] 2 puff INHALATION RT-Q6H PRN 12/01/18 [History] Aspirin EC [Ecotrin Low Dose] 81 mg PO BID 12/01/18 [History] metFORMIN HCL [Glucophage] 500 mg PO BID 12/01/18 [History] Cholecalciferol [Vitamin D3 (25 Mcg = 1000 Iu)] 25 mcg PO BID 04/24/23 [History] Tolterodine ER [Detrol LA] 4 mg PO HS 04/24/23 [History] Ciprofloxacin HCl [Cipro] 750 mg PO Q12H 10 Days #20 tab 05/12/23 [Rx] Atorvastatin [Lipitor] 20 mg PO DAILY tab 05/13/23 [Rx] Benzonatate [Tessalon Perles] 200 mg PO TID cap 05/13/23 [Rx] Dapagliflozin Propanediol [Farxiga] 10 mg PO DAILY tab 05/13/23 [Rx] Furosemide [Lasix] 40 mg PO BID@0900,1600 tab 05/13/23 [Rx] Ipratropium-Albuterol Nebulize [Duoneb 0.5 mg-3 mg/3 ml Soln] 3 ml INHALATION RT-QID each 05/13/23 [Rx] Metoprolol Succinate (ER) [Toprol XL] 25 mg PO BID tab 05/13/23 [Rx] Nystatin 100,000 Unit/gm Powd [Mycostatin Powder] 1 applic TOPICAL TID each 05/13/23 [Rx] Pantoprazole [Protonix] 40 mg PO AC-BRKFST tab 05/13/23 [Rx] Spironolactone [Aldactone] 25 mg PO BID tab 05/13/23 [Rx] bisacodyL [Dulcolax] 5 mg PO DAILY PRN tab 05/13/23 [Rx] guaiFENesin-Coden 100-10MG/5ML [Robitussin AC] 10 ml PO Q6HR PRN ml 05/13/23 [Rx] Follow up Appointment(s)/Referral(s): [facility], [NON-STAFF] - 1 Week Malik Carrasquillo MD [STAFF PHYSICIAN] - 1 Week ([facility] will call you with appointment date and time.) Ayush Nicole MD [STAFF PHYSICIAN] - 1 Week Raheel Manzano DO [Doctor of Osteopathic Medicine] - 05/21/23 10:15 am Pat Angulo MD [Primary Care Provider] - 05/07/23 2:15 pm Mónica Longoria MD [STAFF PHYSICIAN] - 1 Week
[2023-05-13 12:31] LABS: Glucose,Whole Blood 210 mg/dL (70-110)
[2023-05-13 14:04] VITALS: BP 126/75; PULSE 87; RESP 19; TEMP 98.5
--- NOTE | 2023-05-13 14:37 | P.PN ---
Subjective Progress Note Date: 05/13/23 Principal diagnosis: Reason for follow-up is bilateral lower extremity cellulitis Patient is a 72-year-old female with a past medical history significant for diabetes mellitus DVT osteoarthritis pneumonia patient was brought into the hospital for evaluation of increasing swelling to bilateral lower extremity, patient has been diagnosed with bilateral lower extremity cellulitis. On today's evaluation that is 05/13/2023 the patient remains to be afebrile patient is breathing comfortably on 4 L nasal cannula oxygen , the patient is still complaining of a dry hacking cough unable to bring up any sputum some nausea vomiting no abdominal pain and no diarrhea patient lower extremity swelling has decreased in intensity Patient did have a white count of 9.40 creatinine is 1.0as of 05/12/2023 Objective - Vital Signs Vital signs: Vital Signs Temp 98.5 F 05/13/23 12:27 Pulse 87 05/13/23 12:27 Resp 19 05/13/23 12:27 BP 126/75 05/13/23 12:27 Pulse Ox 89 L 05/13/23 12:27 FiO2 Intake & Output 05/12/23 05/13/23 05/13/23 18:59 06:59 18:59 Output Total 1201 625 Balance -1201 -625 Weight 126.5 kg Output: Urine 1200 625 Stool 1 Other: Voiding Method Diaper Diaper Diaper Incontinent Incontinent Incontinent External Catheter External Catheter External Catheter # Voids 2 1 # Bowel Movements 1 - Exam GENERAL DESCRIPTION: An elderly female lying in bed in no distress RESPIRATORY SYSTEM: Unlabored breathing ,coarse breath sounds bilaterally HEART: S1 S2 regular rate and rhythm , ABDOMEN: Soft , no tenderness EXTREMITIES: Bilateral lower extremity covered with compression stocking with no drainage - Labs CBC & Chem 7: 05/12/23 05:58 05/12/23 05:58 Labs: Abnormal Lab Results - Last 24 Hours (Table) 05/12/23 05/12/23 05/13/23 Range/Units 17:11 20:12 07:54 POC Glucose (mg/dL) 204 H 266 H 185 H (70-110) mg/dL 05/13/23 Range/Units 12:29 POC Glucose (mg/dL) 210 H (70-110) mg/dL Assessment and Plan (1) Bilateral lower leg cellulitis Status: Acute Code(s): L03.116 - CELLULITIS OF LEFT LOWER LIMB; L03.115 - CELLULITIS OF RIGHT LOWER LIMB SNOMED Code(s): 044085856 (2) Penicillin allergy Status: Acute Code(s): Z88.0 - ALLERGY STATUS TO PENICILLIN SNOMED Code(s): 45273598 (3) Abnormal chest x-ray Status: Acute Code(s): R93.89 - ABNORMAL FINDINGS ON DX IMAGING OF OTH BODY STRUCTURES SNOMED Code(s): 922534272 Plan: 1patient presented to hospital with increasing swelling to bilateral lower extremity patient did have evidence of erythema warmth and tenderness to touch concerning for cellulitis likely from gram-positive skin poli such as trapped less likely MRSA or gram-negative infection 2-patient local wound care continue with silver dressing to the open area followed by Matthias wrap dressing to be changed every 72 hours 3patient did have hematuria with evidence of bilateral renal stones being monitored by urology urine is growing Pseudomonas , Sputum culture has been finalized with Pseudomonas aeruginosa that is sensitive to cefepime and Cipro. 4patient the Clinical improvement with cefepime with cefepime, plan is to fini sh therapy with oral Cipro at the bedside multiple questions concern answered Dictation was produced using [employer] dictation software. please excuse any grammatical, word or spelling errors. Time with Patient: Less than 30
== END 2023-05-13 13:38 | DRG 602 ==
LOC: EC 15:15 → 3SCARD 18:56 → 5NMEDONC 05-02 22:54
PROVIDERS: ADMIT Internal Medicine; ATTEND Internal Medicine
DX: L03.115 Cellulitis of right lower limb (principal); I50.33 Acute on chronic diastolic (congestive) heart failure; J96.01 Acute respiratory failure with hypoxia; J98.11 Atelectasis; N39.0 Urinary tract infection, site not specified; Z68.43 Body mass index [BMI] 50.0-59.9, adult; J84.9 Interstitial pulmonary disease, unspecified; L97.919 Non-pressure chronic ulcer of unspecified part of right lower leg with unspecified severity; L97.929 Non-pressure chronic ulcer of unspecified part of left lower leg with unspecified severity; L03.116 Cellulitis of left lower limb; H35.30 Unspecified macular degeneration; I27.29 Other secondary pulmonary hypertension; I25.10 Atherosclerotic heart disease of native coronary artery without angina pectoris; I50.82 Biventricular heart failure; B96.5 Pseudomonas (aeruginosa) (mallei) (pseudomallei) as the cause of diseases classified elsewhere; E66.01 Morbid (severe) obesity due to excess calories; Z11.52 Encounter for screening for COVID-19; Z88.0 Allergy status to penicillin; R31.0 Gross hematuria; G89.29 Other chronic pain; N28.1 Cyst of kidney, acquired; Z74.1 Need for assistance with personal care; R79.1 Abnormal coagulation profile; M81.0 Age-related osteoporosis without current pathological fracture; E55.9 Vitamin D deficiency, unspecified; N39.3 Stress incontinence (female) (male); R26.9 Unspecified abnormalities of gait and mobility; N20.0 Calculus of kidney; M17.0 Bilateral primary osteoarthritis of knee; Z87.01 Personal history of pneumonia (recurrent); Z86.718 Personal history of other venous thrombosis and embolism; Z79.84 Long term (current) use of oral hypoglycemic drugs; Z79.82 Long term (current) use of aspirin; Z87.891 Personal history of nicotine dependence; Z79.899 Other long term (current) drug therapy; Z87.442 Personal history of urinary calculi; Z90.710 Acquired absence of both cervix and uterus
CPT/HCPCS: 36415; 71045; 71046; 71275; 74178; 74400; 76770; 80053; 81001; 82803; 83036; 83605; 83880; 84145; 84484; 84550; 85025; 85379; 85610; 85730; 87040; 87070; 87077; 87086; 87186; 87205; 87635; 93005; 93306; 93970; 94640; 94760; 96365; 96366; 96372; 96375; 99285

== ENCOUNTER 2023-08-05 16:14 | Inpatient (IN) | payer MEDICARE, BC ==
--- NOTE | 2023-08-05 16:39 | ED ---
General Adult HPI - General Chief complaint: Anxiety Stated complaint: Weakness Time Seen by Provider: 08/05/23 16:25 Source: patient, family, EMS, RN notes reviewed, old records reviewed Mode of arrival: EMS Limitations: no limitations - History of Present Illness Initial comments: This is a 73-year-old female who presents to the emergency department with a past medical history significant for congestive heart failure. Patient states she was discharged from the hospital to a group home and is only been home a week or 2. Patient states she became lightheaded and weak at home and started having some shaking so her called the ambulance. states he thought she was having some difficulty breathing and was concerned about that as well. Patient denies any chest pain or palpitations. Patient has any fever chills or cough. Patient denies any abdominal pain patient has any back pain. Patient denies any dysuria hematuria urinary frequency. - Related Data Home Medications Medication Instructions Recorded Confirmed Acetaminophen [Tylenol 8 Hour] 650 mg PO Q8H PRN 12/01/18 04/24/23 Albuterol Sulfate [Proair Hfa] 2 puff INHALATION RT-Q6H PRN 12/01/18 04/24/23 Aspirin EC [Ecotrin Low Dose] 81 mg PO BID 12/01/18 04/24/23 metFORMIN HCL [Glucophage] 500 mg PO BID 12/01/18 04/24/23 Cholecalciferol [Vitamin D3 (25 25 mcg PO BID 04/24/23 04/24/23 Mcg = 1000 Iu)] Tolterodine ER [Detrol LA] 4 mg PO HS 04/24/23 04/24/23 Previous Rx's Medication Instructions Recorded Ciprofloxacin HCl [Cipro] 750 mg PO Q12H 10 Days #20 tab 05/12/23 Atorvastatin [Lipitor] 20 mg PO DAILY tab 05/13/23 Benzonatate [Tessalon Perles] 200 mg PO TID cap 05/13/23 Dapagliflozin Propanediol [Farxiga] 10 mg PO DAILY tab 05/13/23 Furosemide [Lasix] 40 mg PO BID@0900,1600 tab 05/13/23 Ipratropium-Albuterol Nebulize 3 ml INHALATION RT-QID each 05/13/23 [Duoneb 0.5 mg-3 mg/3 ml Soln] Metoprolol Succinate (ER) [Toprol 25 mg PO BID tab 05/13/23 XL] Nystatin 100,000 Unit/gm Powd 1 applic TOPICAL TID each 05/13/23 [Mycostatin Powder] Pantoprazole [Protonix] 40 mg PO AC-BRKFST tab 05/13/23 Spironolactone [Aldactone] 25 mg PO BID tab 05/13/23 bisacodyL [Dulcolax] 5 mg PO DAILY PRN tab 05/13/23 guaiFENesin-Coden 100-10MG/5ML 10 ml PO Q6HR PRN ml 05/13/23 [Robitussin AC] Allergies Allergy/AdvReac Type Severity Reaction Status Date / Time amoxicillin Allergy Rash/Hives Verified 08/05/23 16:27 dill weed Allergy Rash/Hives Uncoded 08/05/23 16:27 Review of Systems ROS Statement: Those systems with pertinent positive or pertinent negative responses have been documented in the HPI. ROS Other: All systems not noted in ROS Statement are negative. Past Medical History Past Medical History: Diabetes Mellitus, Deep Vein Thrombosis (DVT), Eye Disorder, Osteoarthritis (OA), Pneumonia Additional Past Medical History / Comment(s): Seasonal allergies, recent congestions and also bladder infection, finishing po AB Rx. Macular degeneration, Rt eye worse. Edema in legs, hx water blisters, wears jobst stockings. kidney stones. Hx blood clot in leg History of Any Multi-Drug Resistant Organisms: None Reported Past Surgical History: Hysterectomy, Tubal Ligation Additional Past Surgical History / Comment(s): Multiple Kidney stone removals, LITHOTRIPSY. Blood clot removal left thigh, placed stent lt groin 2012 est. Past Anesthesia/Blood Transfusion Reactions: Previous Problems w/ Anesthesia Additional Past Anesthesia/Blood Transfusion Reaction / Comment(s): difficulty with breathing when waking up from previous kidney stone surgery x1 Past Psychological History: No Psychological Hx Reported Smoking Status: Former smoker Past Alcohol Use History: None Reported Past Drug Use History: None Reported - Past Family History Mother Family Medical History: Cancer Additional Family Medical History / Comment(s): colon cancer Father Family Medical History: Cancer Additional Family Medical History / Comment(s): lung cancer Sister(s) Family Medical History: Cancer Additional Family Medical History / Comment(s): breast cancer Brother(s) Family Medical History: Cancer, Pulmonary Embolus Daughter(s) Additional Family Medical History / Comment(s): daughter developed blood clot to shoulder and neck after IV PICC line insertion. granddaughter hx MTHFR with blood clot to groin General Exam - General Exam Comments Initial Comments: GENERAL: Patient is well-developed and well-nourished. Patient is nontoxic and well- hydrated and is in mild distress. ENT: Neck is soft and supple. No significant lymphadenopathy is noted. Oropharynx is clear. Moist mucous membranes. Neck has full range of motion without eliciting any pain. EYES: The sclera were anicteric and conjunctiva were pink and moist. Extraocular movements were intact and pupils were equal round and reactive to light. Eyelids were unremarkable. PULMONARY: Unlabored respirations. Good breath sounds bilaterally. Subtle crackles right base. CARDIOVASCULAR: There is a regular rate and rhythm without any murmurs gallops or rubs. ABDOMEN: Soft and nontender with normal bowel sounds. SKIN: Skin is clear with no lesions or rashes and otherwise unremarkable. NEUROLOGIC: Patient is alert and oriented x3. Cranial nerves II through XII are grossly intact. Motor and sensory are also intact. Normal speech, volume and content. Symmetrical smile. MUSCULOSKELETAL: Normal extremities with adequate strength and full range of motion. No lower extremity swelling or edema. No calf tenderness. LYMPHATICS: No significant lymphadenopathy is noted PSYCHIATRIC: Normal psychiatric evaluation. Limitations: no limitations Course Vital Signs 08/05/23 08/05/23 08/05/23 16:20 19:00 19:35 Temperature 98.0 F Pulse Rate 81 85 89 Respiratory 20 20 18 Rate Blood Pressure 98/69 102/62 96/57 O2 Sat by Pulse 97 94 L 96 Oximetry Medical Decision Making - Medical Decision Making EKG shows a sinus rhythm at 80 bpm parables 191 QRS is 96 QT interval is 423 QTc is 459. Patient's EKG shows no ST segment ovation or depression Was pt. sent in by a medical professional or institution (, PA, SHADE BANDER, urgent care, hospital, or group home...) When possible be specific @ -[No] Did you speak to anyone other than the patient for history (EMS, parent, family, police, friend...)? What history was obtained from this source @ -[No] Did you review nursing and triage notes (agree or disagree)? Why? @ -[I reviewed and agree with nursing and triage notes] Were old charts reviewed (outside hosp., previous admission, EMS record, old EKG, old radiological studies, urgent care reports/EKG's, group home records)? Report findings @ -I reviewed prior charts prior lab work and prior radiological studies. Differential Diagnosis (chest pain, altered mental status, abdominal pain women, abdominal pain men, vaginal bleeding, weakness, fever, dyspnea, syncope, headache, dizziness, GI bleed, back pain, seizure, CVA, palpatations, mental health, musculoskeletal)? @ -Differential Weakness: Hypoglycemia, shock, sepsis, hyponatremia, anemia, infection, MT, ETOH, adverse medicine reaction, overdose, stroke, this is not meant to be an all-inclusive list. Differential Dizziness: Benign paroxysmal positional Vertigo, Menieres disease, otitis media, acoustic neuroma, vertebrobasilar insufficiency, cerebellar stroke, encephalitis, hypovolemic, arrhythmia, coronary artery syndrome, anemia, this is not meant to be an all-inclusive list EKG interpreted by me (3pts min.). @ -[As above] X-rays interpreted by me (1pt min.). @ -Chest x-ray shows some slight hazy opacification much improved from last x- ray CT interpreted by me (1pt min.). @ -[None done] U/S interpreted by me (1pt. min.). @ -[None done] What testing was considered but not performed or refused? (CT, X-rays, U/S, labs)? Why? @ -[None] What meds were considered but not given or refused? Why? @ -[None] Did you discuss the management of the patient with other professionals (professionals i.e. , PA, SH[employer] B[employer]ER, lab, RT, psych nurse, social work lecturer, business lawyer, teacher, principal gifts officer, case management coordinator)? Give summary @ -I spoke with Dr. Angulo and he agreed to admit the patient admit the patient wrote admitting orders Was smoking cessation discussed for >3mins.? @ -[No] Was critical care preformed (if so, how long)? @ -[No] Were there social determinants of health that impacted care today? How? (Homelessness, low income, unemployed, alcoholism, drug addiction, transportation, low edu. Level, literacy, decrease access to med. care, intermediate, rehab)? @ -[No] Was there de-escalation of care discussed even if they declined (Discuss DNR or withdrawal of care, Hospice)? DNR status @ -[No] What co-morbidities impacted this encounter? (DM, HTN, Smoking, COPD, CAD, Cancer, CVA, ARF, Chemo, Hep., AIDS, mental health diagnosis, sleep apnea, morbid obesity)? @ -[None] Was patient admitted / discharged? Hospital course, mention meds given and route, prescriptions, significant lab abnormalities, going to OR and other pertinent info. @ -Patient's blood pressure was in the upper 90s systolic and low 100s. Patient felt lightheaded when she stood up. I did not want to give the patient any fluids at this time secondary to the fact that the patient had a slight indication of some pulmonary edema on the x-ray Undiagnosed new problem with uncertain prognosis? @ -[No] Drug Therapy requiring intensive monitoring for toxicity (Heparin, Nitro, Insulin, Cardizem)? @ -[No] Were any procedures done? @ -[No] Diagnosis/symptom? @ -Hypotension Acute, or Chronic, or Acute on Chronic? @ -Acute Uncomplicated (without systemic symptoms) or Complicated (systemic symptoms)? @ -Complicated Side effects of treatment? @ -[No] Exacerbation, Progression, or Severe Exacerbation? @ -[No] Poses a threat to life or bodily function? How? (Chest pain, USA, MT, pneumonia, PE, COPD, DKA, ARF, appy, cholecystitis, CVA, Diverticulitis, Homicidal, Suicidal, threat to staff... and all critical care pts) @ -Yes patient's blood pressure can lower she can fall and fracture her hip or hit her head and causing intracranial hemorrhage. - Lab Data Result diagrams: 08/05/23 16:59 08/05/23 16:59 Lab Results 08/05/23 08/05/23 08/05/23 Range/Units 16:59 16:59 16:59 WBC 6.9 (3.8-10.6) k/uL RBC 3.45 L (3.80-5.40) m/uL Hgb 11.4 (11.4-16.0) gm/dL Hct 34.4 (34.0-46.0) % MCV 99.8 (80.0-100.0) fL MCH 33.2 (25.0-35.0) pg MCHC 33.3 (31.0-37.0) g/dL RDW 15.0 (11.5-15.5) % Plt Count 202 (150-450) k/uL MPV 8.7 Neutrophils % 82 % Lymphocytes % 10 % Monocytes % 4 % Eosinophils % 3 % Basophils % 0 % Neutrophils # 5.6 (1.3-7.7) k/uL Lymphocytes # 0.7 L (1.0-4.8) k/uL Monocytes # 0.3 (0-1.0) k/uL Eosinophils # 0.2 (0-0.7) k/uL Basophils # 0.0 (0-0.2) k/uL Poikilocytosis Slight Macrocytosis Slight PT 10.9 (10.0-12.5) sec INR 1.0 (<1.2) APTT 23.1 (22.0-30.0) sec Sodium 134 L (137-145) mmol/L Potassium 4.4 (3.5-5.1) mmol/L Chloride 100 (98-107) mmol/L Carbon Dioxide 25 (22-30) mmol/L Anion Gap 9 mmol/L BUN 28 H (7-17) mg/dL Creatinine 0.90 (0.52-1.04) mg/dL Est GFR (CKD-EPI)AfAm 74 (>60 ml/min/1.73 sqM) Est GFR (CKD-EPI)NonAf 64 (>60 ml/min/1.73 sqM) Glucose 132 H (74-99) mg/dL POC Glucose (mg/dL) (70-110) mg/dL POC Glu [place] Packer ID Plasma Lactic Acid Srinivasa (0.7-2.0) mmol/L Calcium 8.5 (8.4-10.2) mg/dL Magnesium 1.6 (1.6-2.3) mg/dL Total Bilirubin 1.2 (0.2-1.3) mg/dL AST 56 H (14-36) U/L ALT 22 (4-34) U/L Alkaline Phosphatase 77 (38-126) U/L Troponin I (0.000-0.034) ng/mL NT-Pro-B Natriuret Pep 2030 pg/mL Total Protein 6.4 (6.3-8.2) g/dL Albumin 3.1 L (3.5-5.0) g/dL 08/05/23 08/05/23 08/05/23 Range/Units 16:59 16:59 17:44 WBC (3.8-10.6) k/uL RBC (3.80-5.40) m/uL Hgb (11.4-16.0) gm/dL Hct (34.0-46.0) % MCV (80.0-100.0) fL MCH (25.0-35.0) pg MCHC (31.0-37.0) g/dL RDW (11.5-15.5) % Plt Count (150-450) k/uL MPV Neutrophils % % Lymphocytes % % Monocytes % % Eosinophils % % Basophils % % Neutrophils # (1.3-7.7) k/uL Lymphocytes # (1.0-4.8) k/uL Monocytes # (0-1.0) k/uL Eosinophils # (0-0.7) k/uL Basophils # (0-0.2) k/uL Poikilocytosis Macrocytosis PT (10.0-12.5) sec INR (<1.2) APTT (22.0-30.0) sec Sodium (137-145) mmol/L Potassium (3.5-5.1) mmol/L Chloride (98-107) mmol/L Carbon Dioxide (22-30) mmol/L Anion Gap mmol/L BUN (7-17) mg/dL Creatinine (0.52-1.04) mg/dL Est GFR (CKD-EPI)AfAm (>60 ml/min/1.73 sqM) Est GFR (CKD-EPI)NonAf (>60 ml/min/1.73 sqM) Glucose (74-99) mg/dL POC Glucose (mg/dL) 128 H (70-110) mg/dL POC Glu [place] Packer ID Mya Singh Plasma Lactic Acid Srinivasa 1.9 (0.7-2.0) mmol/L Calcium (8.4-10.2) mg/dL Magnesium (1.6-2.3) mg/dL Total Bilirubin (0.2-1.3) mg/dL AST (14-36) U/L ALT (4-34) U/L Alkaline Phosphatase (38-126) U/L Troponin I <0.012 (0.000-0.034) ng/mL NT-Pro-B Natriuret Pep pg/mL Total Protein (6.3-8.2) g/dL Albumin (3.5-5.0) g/dL Disposition Clinical Impression: Hypotension Disposition: ADMITTED IP TO THIS HOSP Referrals: Pat Angulo MD [Primary Care Provider] - 1-2 days Time of Disposition: 20:15
[2023-08-05] MEDS: LORazepam 2 MG/ML INJ IV STA (17:11)
[2023-08-05 17:35] LABS: Basophils % (A) 0 %; Eosinophils # (A) 0.2 k/uL (0-0.7); Eosinophils % (A) 3 %; HCT 34.4 % (34.0-46.0); HGB 11.4 gm/dL (11.4-16.0); Lymphocytes # (A) 0.7 k/uL (1.0-4.8); Lymphocytes % (A) 10 %; MCH 33.2 pg (25.0-35.0); MCHC 33.3 g/dL (31.0-37.0); MCV 99.8 fL (80.0-100.0); Macrocytosis Slight; Mean Platelet Volume 8.7; Monocytes # (A) 0.3 k/uL (0-1.0); Monocytes % (A) 4 %; Neutrophils # (A) 5.6 k/uL (1.3-7.7); Neutrophils % (A) 82 %; Platelet Count 202 k/uL (150-450); Poikilocytosis Slight; RBC 3.45 m/uL (3.80-5.40); WBC 6.9 k/uL (3.8-10.6)
[2023-08-05 17:45] LABS: Glucose,Whole Blood 128 mg/dL (70-110)
--- NOTE | 2023-08-05 17:47 | XR ---
EXAMINATION TYPE: XR chest 2V DATE OF EXAM: 08/05/2023 COMPARISON: 05/12/2023 HISTORY: 73 year-old female shortness of breath, difficulty breathing TECHNIQUE: AP and lateral views FINDINGS: Low lung volumes. Patchy interstitial densities bilaterally. Heart is mildly enlarged. No pleural eff usion. IMPRESSION: Hypoventilatory changes but with patchy groundglass changes persisting in the mid and lower lungs. Co nsider interstitial pneumonitis or atypical/COVID pneumonias.
[2023-08-05 17:57] LABS: ALT 22 U/L (4-34); African American GFR (CKD) 74 (>60 ml/min/1.73 sqM); Anion Gap 9 mmol/L; Blood Urea Nitrogen 28 mg/dL (7-17); Calcium 8.5 mg/dL (8.4-10.2); Carbon Dioxide 25 mmol/L (22-30); Chloride 100 mmol/L (98-107); Glucose 132 mg/dL (74-99); Non-African American GFR(CKD) 64 (>60 ml/min/1.73 sqM); Sodium 134 mmol/L (137-145); Total Bilirubin 1.2 mg/dL (0.2-1.3)
[2023-08-05 18:04] LABS: NT-Pro-B-Type Natriuretic Pept 2030 pg/mL
[2023-08-05 18:05] LABS: Partial Thromboplastin Time 23.1 sec (22.0-30.0); Prothrombin Time 10.9 sec (10.0-12.5)
[2023-08-05 18:30] LABS: AST 56 U/L (14-36); Albumin 3.1 g/dL (3.5-5.0); Alkaline Phosphatase 77 U/L (38-126); Magnesium 1.6 mg/dL (1.6-2.3); Potassium 4.4 mmol/L (3.5-5.1); Total Protein 6.4 g/dL (6.3-8.2)
[2023-08-05] MEDS: FUROSEMIDE 10 MG/ML 4 ML VIAL IV STA (19:04)
[2023-08-05] MEDS: FUROSEMIDE 10 MG/ML 10 ML VIAL IV STA (19:52)
[2023-08-05] MEDS ORDERED: ALBUTEROL NEBULIZED 2.5 MG/3 ML INHALATION PRN (20:16)
[2023-08-06] MEDS: ACETAMINOPHEN TAB 325 MG TAB PO PRN (06:13)
[2023-08-06] MEDS: PANTOPRAZOLE 40 MG TABLET PO SCH (06:13)
[2023-08-06 06:30] LABS: Glucose,Whole Blood 120 mg/dL (70-110)
[2023-08-06] MEDS: IPRATROPIUM-ALBUTEROL 3 ML NEB INHALATION SCH (08:23)
[2023-08-06] MEDS ORDERED: NITROGLYCERIN SL TABS 0.4 MG TAB SUBLINGUAL PRN (08:26)
[2023-08-06] MEDS ORDERED: ALPRAZolam 0.5 MG TAB PO PRN (08:26)
[2023-08-06] MEDS ORDERED: ALPRAZolam 0.25 MG TAB PO PRN (08:26)
[2023-08-06] MEDS: ATORVASTATIN 20 MG TAB PO SCH (08:30)
[2023-08-06] MEDS: DAPAGLIFLOZIN PROPANEDIOL 10 MG TABLET PO SCH (08:43)
[2023-08-06] MEDS: FUROSEMIDE 40 MG TAB PO SCH (08:43)
[2023-08-06] MEDS: ASPIRIN 325 MG TAB PO STA (08:43)
[2023-08-06] MEDS: METOPROLOL TARTRATE 25 MG TAB PO SCH (08:44)
[2023-08-06] MEDS: ATORVASTATIN 80 MG TAB PO STA (08:45)
[2023-08-06] MEDS: SODIUM CHLORIDE 0.9% 1,000 ML in EMPTY BAG 1 BAG IV SCH (08:45)
--- NOTE | 2023-08-06 10:00 | P.CRDCN ---
History of Present Illness Consult date: 08/06/23 Consult reason: hypotension History of present illness: History of present illness: This is a 73-year-old female patient of Dr. Carrasquillo with past medical history of diabetes mellitus type 2, pulmonary hypertension, tricuspid regurgitation, chronic diastolic heart failure, moderate to severe coronary calcifications per CT scan, hypertension, dyslipidemia, history of DVT. We have been asked to evaluate the patient for hypotension. Patient had a hospitalization in April at which time she was diagnosed with diastolic heart failure. She has had follow-up with Dr. Carrasquillo in the office on 07/24 and is scheduled for cardiac catheterization on 08/10. Patient states she came to the hospital because she was feeling weak and shaky. She states her breathing was okay. No chest pain and no dizziness. She may have had a little bit of lightheadedness when she first got up. She was very drowsy and sleepy all day. Occasional nausea. She has had a little cough with yellow sputum production. She does have history of smoking and quit many years ago. She denies having any palpitations. She admits to not being active at home. Patient presented with blood pressure of 98/69. EKG sinus rhythm Chest x-ray: Hypoventilatory changes but with patchy groundglass changes persisting in the mid and lower lungs. Consider interstitial pneumonitis or atypical COVID-pneumonia. CBC unremarkable. INR 1. Sodium 134, potassium 4.4, BUN 28 creatinine 0.9. Troponin negative x 1. proBNP 2030. AST 56 otherwise liver function test are normal. Magnesium 1.6. Calcium 1.9. Home cardiac medications: Aspirin 81 mg twice daily, atorvastatin 20 mg daily, Farxiga 10 mg daily, Lasix 60 mg twice daily, Lopressor 25 mg twice daily. Echocardiogram performed 04/25/2023 reveals normal EF, moderate to severe TR, severe pulmonary hypertension. Review Of Systems: At the time of my exam: CONSTITUTIONAL: Denies fever or chills. + Fatigue, weakness, shakiness. HEENT: Denies blurred vision, vision changes, or eye pain. Denies hemoptysis CARDIOVASCULAR: Denies chest pain. Denies orthopnea. Denies PND. Denies palpitations RESPIRATORY: Denies shortness of breath. + Cough. + Sputum production. GASTROINTESTINAL: Denies abdominal pain. Denies nausea or vomiting. HEMATOLOGIC: Denies bleeding disorders. GENITOURINARY: Denies any blood in urine. SKIN: Denies pruitis. Denies rash. Physical examination: Gen: This is a 73-year-old morbidly obese female in no acute distress VS: reviewed HEENT: Head is atraumatic, normocephalic. Pupils equal, round. Sclerae is anicteric. NECK: Supple. No JVD. LUNGS: Diminished breath sounds bilaterally. No intercostal retractions. HEART: Regular rate and rhythm. Systolic murmur. ABDOMEN: Soft No tenderness. EXTREMITIES: 1+ lower extremity edema. No calf tenderness. NEUROLOGICAL: Patient is awake, alert and oriented x3. Assessment: Generalized weakness, cough and sputum production Pulmonary hypertension Chronic diastolic heart failure Moderate to severe coronary calcifications on CT rule out coronary artery disease Hypertension Dyslipidemia Moderate to severe TR Plan: Resume patient's home cardiac medications Schedule patient for cardiac catheterization today with Dr. Carrasquillo Obtain 2-D echocardiogram and Doppler study to assess cardiac structure and function Further recommendations to follow based upon clinical course Thank you kindly for this consultation. Nurse practitioner note has been reviewed, I agree with documented findings and plan of care. Patient was seen and examined. Past Medical History Past Medical History: Heart Failure, Diabetes Mellitus, Deep Vein Thrombosis (DVT), Eye Disorder, Osteoarthritis (OA), Pneumonia Additional Past Medical History / Comment(s): Seasonal allergies. Macular degeneration, Rt eye worse. Edema in legs, hx water blisters, wears jobst stockings. kidney stones. Hx blood clot in leg History of Any Multi-Drug Resistant Organisms: None Reported Past Surgical History: Hysterectomy, Tubal Ligation Additional Past Surgical History / Comment(s): Multiple Kidney stone removals, LITHOTRIPSY. Blood clot removal left thigh, placed stent lt groin 2012 est. Past Anesthesia/Blood Transfusion Reactions: Previous Problems w/ Anesthesia Additional Past Anesthesia/Blood Transfusion Reaction / Comment(s): difficulty with breathing when waking up from previous kidney stone surgery x1 Past Psychological History: No Psychological Hx Reported Smoking Status: Former smoker Past Alcohol Use History: None Reported Additional Past Alcohol Use History / Comment(s): smoker for 6 years, 1 ppd, quit 2001 Past Drug Use History: None Reported - Past Family History Mother Family Medical History: Cancer Additional Family Medical History / Comment(s): colon cancer Father Family Medical History: Cancer Additional Family Medical History / Comment(s): lung cancer Sister(s) Family Medical History: Cancer Additional Family Medical History / Comment(s): breast cancer Brother(s) Family Medical History: Cancer, Pulmonary Embolus Daughter(s) Additional Family Medical History / Comment(s): daughter developed blood clot to shoulder and neck after IV PICC line insertion, TIA. granddaughter hx blood clot to groin Medications and Allergies Home Medications Medication Instructions Recorded Confirmed Type Acetaminophen [Tylenol 8 Hour] 650 mg PO Q8H PRN 12/01/18 08/05/23 History Albuterol Sulfate [Proair Hfa] 2 puff INHALATION RT-Q6H PRN 12/01/18 08/05/23 History Aspirin EC [Ecotrin Low Dose] 81 mg PO BID 12/01/18 08/05/23 History metFORMIN HCL [Glucophage] 500 mg PO BID 12/01/18 08/05/23 History Cholecalciferol [Vitamin D3 (25 25 mcg PO BID 04/24/23 08/05/23 History Mcg = 1000 Iu)] Atorvastatin [Lipitor] 20 mg PO DAILY tab 05/13/23 08/05/23 Rx Dapagliflozin Propanediol [Farxiga] 10 mg PO DAILY tab 05/13/23 08/05/23 Rx Pantoprazole [Protonix] 40 mg PO AC-BRKFST tab 05/13/23 08/05/23 Rx Docusate [Colace] 100 mg PO BID 08/05/23 08/05/23 History Furosemide [Lasix] 60 mg PO BID@0900,1600 08/05/23 08/05/23 History Metoprolol Tartrate [Lopressor] 25 mg PO BID 08/05/23 08/05/23 History Montelukast [Singulair] 10 mg PO HS 08/05/23 08/05/23 History oxyBUTYnin chloride [Ditropan] 5 mg PO BID 08/05/23 08/05/23 History Allergies Allergy/AdvReac Type Severity Reaction Status Date / Time amoxicillin Allergy Rash/Hives Verified 08/05/23 22:35 dill weed Allergy Rash/Hives Uncoded 08/05/23 22:35 Physical Exam Vitals: Vital Signs Temp Pulse Pulse Resp BP BP Pulse Ox 08/06/23 04:00 92 20 118/74 93 L 08/06/23 02:00 87 24 125/71 95 08/06/23 01:00 90 23 101/67 93 L 08/06/23 00:00 84 21 106/66 95 08/05/23 22:16 98.3 F 93 24 104/56 96 08/05/23 19:35 89 18 96/57 96 08/05/23 19:00 85 20 102/62 94 L 08/05/23 16:20 98.0 F 81 20 98/69 97 Intake and Output 08/05/23 08/06/23 08/06/23 22:59 06:59 14:59 Other: Voiding Method Bedside Commode # Voids 1 Weight 116.12 kg 116.12 kg Results 08/05/23 16:59 08/05/23 16:59 Cardiac Enzymes 08/05/23 08/05/23 Range/Units 16:59 16:59 AST 56 H (14-36) U/L Troponin I <0.012 (0.000-0.034) ng/mL Coagulation 08/05/23 Range/Units 16:59 PT 10.9 (10.0-12.5) sec APTT 23.1 (22.0-30.0) sec CBC 08/05/23 Range/Units 16:59 WBC 6.9 (3.8-10.6) k/uL RBC 3.45 L (3.80-5.40) m/uL Hgb 11.4 (11.4-16.0) gm/dL Hct 34.4 (34.0-46.0) % Plt Count 202 (150-450) k/uL Comprehensive Metabolic Panel 08/05/23 Range/Units 16:59 Sodium 134 L (137-145) mmol/L Potassium 4.4 (3.5-5.1) mmol/L Chloride 100 (98-107) mmol/L Carbon Dioxide 25 (22-30) mmol/L BUN 28 H (7-17) mg/dL Creatinine 0.90 (0.52-1.04) mg/dL Glucose 132 H (74-99) mg/dL Calcium 8.5 (8.4-10.2) mg/dL AST 56 H (14-36) U/L ALT 22 (4-34) U/L Alkaline Phosphatase 77 (38-126) U/L Total Protein 6.4 (6.3-8.2) g/dL Albumin 3.1 L (3.5-5.0) g/dL Current Medications Generic Name Dose Route Start Last Admin Trade Name Marly PRN Reason Stop Dose Admin Acetaminophen 650 mg 08/06/23 06:07 08/06/23 06:13 Acetaminophen Tab 325 Mg Tab PO 650 mg Q6HR PRN Administration Fever and/ or Pain Albuterol Sulfate 2.5 mg 08/05/23 20:16 Albuterol Nebulized 2.5 Mg/3 Ml INHALATION RT-Q6H PRN Shortness Of Breath Albuterol/Ipratropium 3 ml 08/06/23 08:00 Ipratropium-Albuterol 3 Ml Neb INHALATION RT-QID GUS Atorvastatin Calcium 20 mg 08/06/23 09:00 Atorvastatin 20 Mg Tab PO DAILY [facility] Furosemide 40 mg 08/06/23 09:00 Furosemide 40 Mg Tab PO BID@0900,1600 [facility] Pantoprazole Sodium 40 mg 08/06/23 07:30 08/06/23 06:13 Pantoprazole 40 Mg Tablet PO 40 mg AC-BRKFST [facility] Administration Intake and Output 08/05/23 08/06/23 08/06/23 22:59 06:59 14:59 Other: Voiding Method Bedside Commode # Voids 1 Weight 116.12 kg 116.12 kg 08/05/23 16:59 08/05/23 16:59
--- NOTE | 2023-08-06 10:40 | P.HPIM ---
History of Present Illness H&P Date: 08/06/23 This is a 73-year-old female patient who presented with concerns of increased weakness and shakiness over the past 3 days patient recently had a prolonged hospitalization for CHF exacerbation as discharge to rehab. Patient was home for a week or 2 when symptoms started over the past few days. Patient denies fever but does report cough. Denies sick contacts. Patient had scheduled for cardiac catheterization on [address] Joseph outpatient. Patient has past medical history of diastolic heart failure, diabetes mellitus, DVT, osteoarthritis. Chest x-ray completed showing hypoventilatory changes but with patchy groundglass changes persist in the mid and lower lung or interstitial pneumonitis or atypical pneumonitis. EKG completed showing sinus rhythm. Troponin negative.. BNP 2030. White blood cell 6.9 in globin 11.4. Current vital signs temp 93, heart rate 93, respiratory rate 24, blood pressure 05/29/1955 with pulse ox 96% on 3 L. This time cardiology services have been consulted plans for cardiac catheterization inpatient. Due to patient's chest x-ray will consult pulmonary services in order influenza and COVID-19 test. This time patient is resting comfortably in bed. Patient's at bedside all questions answered. Review of Systems Please refer to HPI otherwise unremarkable Past Medical History Past Medical History: Heart Failure, Diabetes Mellitus, Deep Vein Thrombosis (DVT), Eye Disorder, Osteoarthritis (OA), Pneumonia Additional Past Medical History / Comment(s): Seasonal allergies. Macular degeneration, Rt eye worse. Edema in legs, hx water blisters, wears jobst stockings. kidney stones. Hx blood clot in leg History of Any Multi-Drug Resistant Organisms: None Reported Past Surgical History: Hysterectomy, Tubal Ligation Additional Past Surgical History / Comment(s): Multiple Kidney stone removals, LITHOTRIPSY. Blood clot removal left thigh, placed stent lt groin 2012 est. Past Anesthesia/Blood Transfusion Reactions: Previous Problems w/ Anesthesia Additional Past Anesthesia/Blood Transfusion Reaction / Comment(s): difficulty with breathing when waking up from previous kidney stone surgery x1 Past Psychological History: No Psychological Hx Reported Smoking Status: Former smoker Past Alcohol Use History: None Reported Additional Past Alcohol Use History / Comment(s): smoker for 6 years, 1 ppd, quit 2001 Past Drug Use History: None Reported - Past Family History Mother Family Medical History: Cancer Additional Family Medical History / Comment(s): colon cancer Father Family Medical History: Cancer Additional Family Medical History / Comment(s): lung cancer Sister(s) Family Medical History: Cancer Additional Family Medical History / Comment(s): breast cancer Brother(s) Family Medical History: Cancer, Pulmonary Embolus Daughter(s) Additional Family Medical History / Comment(s): daughter developed blood clot to shoulder and neck after IV PICC line insertion, TIA. granddaughter hx blood clot to groin Medications and Allergies Home Medications Medication Instructions Recorded Confirmed Type RX: Acetaminophen [Tylenol 8 Hour] 650 mg PO Q8H PRN 12/01/18 08/05/23 History RX: Albuterol Sulfate [Proair Hfa] 2 puff INHALATION RT-Q6H PRN 12/01/18 08/05/23 History RX: Aspirin EC [Ecotrin Low Dose] 81 mg PO BID 12/01/18 08/05/23 History RX: metFORMIN HCL [Glucophage] 500 mg PO BID 12/01/18 08/05/23 History RX: Cholecalciferol [Vitamin D3 25 mcg PO BID 04/24/23 08/05/23 History (25 Mcg = 1000 Iu)] RX: Atorvastatin [Lipitor] 20 mg PO DAILY tab 05/13/23 08/05/23 Rx RX: Dapagliflozin Propanediol 10 mg PO DAILY tab 05/13/23 08/05/23 Rx [Farxiga] RX: Pantoprazole [Protonix] 40 mg PO AC-BRKFST tab 05/13/23 08/05/23 Rx Docusate [Colace] 100 mg PO BID 08/05/23 08/05/23 History Furosemide [Lasix] 60 mg PO BID@0900,1600 08/05/23 08/05/23 History Metoprolol Tartrate [Lopressor] 25 mg PO BID 08/05/23 08/05/23 History Montelukast [Singulair] 10 mg PO HS 08/05/23 08/05/23 History oxyBUTYnin chloride [Ditropan] 5 mg PO BID 08/05/23 08/05/23 History Allergies Allergy/AdvReac Type Severity Reaction Status Date / Time amoxicillin Allergy Rash/Hives Verified 08/05/23 22:35 dill weed Allergy Rash/Hives Uncoded 08/05/23 22:35 Physical Exam Vitals: Vital Signs Temp Pulse Pulse Pulse Resp BP BP 08/06/23 07:55 93 92 20 08/06/23 07:48 93 20 98/63 08/06/23 04:00 92 20 118/74 08/06/23 02:00 87 24 125/71 08/06/23 01:00 90 23 101/67 08/06/23 00:00 84 21 106/66 08/05/23 22:16 98.3 F 93 24 104/56 08/05/23 19:35 89 18 96/57 08/05/23 19:00 85 20 102/62 08/05/23 16:20 98.0 F 81 20 98/69 Pulse Ox 08/06/23 07:55 08/06/23 07:48 93 L 08/06/23 04:00 93 L 08/06/23 02:00 95 08/06/23 01:00 93 L 08/06/23 00:00 95 08/05/23 22:16 96 08/05/23 19:35 96 08/05/23 19:00 94 L 08/05/23 16:20 97 Intake and Output 08/05/23 08/06/23 08/06/23 22:59 06:59 14:59 Intake Total 360 Balance 360 Intake: Oral 360 Other: Voiding Method Bedside Commode # Voids 1 Weight 116.12 kg 116.12 kg Head normocephalic Neck supple Lungs clear to auscultation bilaterally no wheezing or crackles Heart regular rate and rhythm S1-S2, no rub or gallop Abdomen is soft nontender nondistended positive bowel sounds no hepatosplenomegaly Extremities no edema Neuro alert and orientated to 3 Results CBC & Chem 7: 08/05/23 16:59 08/05/23 16:59 Labs: Abnormal Lab Results - Last 24 Hours (Table) 08/05/23 08/05/23 08/05/23 Range/Units 16:59 16:59 17:44 RBC 3.45 L (3.80-5.40) m/uL Lymphocytes # 0.7 L (1.0-4.8) k/uL Sodium 134 L (137-145) mmol/L BUN 28 H (7-17) mg/dL Glucose 132 H (74-99) mg/dL POC Glucose (mg/dL) 128 H (70-110) mg/dL AST 56 H (14-36) U/L Albumin 3.1 L (3.5-5.0) g/dL 08/06/23 Range/Units 06:08 RBC (3.80-5.40) m/uL Lymphocytes # (1.0-4.8) k/uL Sodium (137-145) mmol/L BUN (7-17) mg/dL Glucose (74-99) mg/dL POC Glucose (mg/dL) 120 H (70-110) mg/dL AST (14-36) U/L Albumin (3.5-5.0) g/dL Thrombosis Risk Factor Assmnt - Choose All That Apply Any of the Below Risk Factors Present?: Yes Each Factor Represents 1 point: Obesity (BMI >25), Swollen legs (current) Each Risk Factor Represents 2 Points: Age 61-74 years Each Risk Factor Represents 3 Points: History of DVT/PE Thrombosis Risk Factor Assessment Total Risk Factor Score: 7 Thrombosis Risk Factor Assessment Level: High Risk Assessment and Plan Assessment: 1. Generalized weakness and cough. COVID-19 and influenza ordered 2. Chronic diastolic congestive heart failure 3. History of pulmonary hypertension 4. Moderate severe coronary calcification seen on CT. Cardiac catheterization scheduled per cardiology 5. History of essential hypertension 6. History of hyperlipidemia 7. History of diabetes mellitus 8. History of macular degeneration 9. History of DVT At this time patient will be admitted Cardiology and pulmonary service is consulted Influenza and COVID-19 ordered Repeat labs ordered Cardiac catheterization scheduled for 08/06/2023 Time with Patient: Greater than 30 (Greater than 60% of the total time spent in counseling and coordination of care)
[2023-08-06 11:36] LABS: Glucose,Whole Blood 121 mg/dL (70-110)
[2023-08-06] MEDS ORDERED: VERAPAMIL 2.5 MG/ML 2 ML AMP ONE (11:49)
[2023-08-06] MEDS ORDERED: LIDOCAINE 1% INJ 10MG/ML (20 ML MDV) ONE (11:49)
[2023-08-06] MEDS ORDERED: HEPARIN SODIUM 1,000 UN/ML (10ML VL) ONE (12:11)
[2023-08-06] MEDS: MIDAZOLAM 2 MG/2 ML VIAL IVP ONE ×2 (12:40→12:44)
[2023-08-06] MEDS: LIDOCAINE 1% INJ 10MG/ML (20 ML MDV) SQ ONE (12:42)
[2023-08-06] MEDS ORDERED: fentaNYL (PF) 50 MCG/ML 2 ML AMP ONE (12:43)
[2023-08-06] MEDS: fentaNYL (PF) 50 MCG/ML 2 ML AMP IVP ONE ×2 (12:44→12:45)
[2023-08-06] MEDS: VERAPAMIL SYRINGE (5 MG/10 ML) INTRAARTER ONE (12:52)
[2023-08-06] MEDS: HEPARIN SODIUM 1,000 UN/ML (10ML VL) IVP ONE (12:53)
[2023-08-06] MEDS: IV FLUID CONTINUATION 950 ML IV ONE (12:54)
[2023-08-06] MEDS: CLOPIDOGREL 75 MG TAB PO ONE (13:00)
[2023-08-06] MEDS ORDERED: CLOPIDOGREL 75 MG TAB ONE (13:01)
[2023-08-06] MEDS: IOPAMIDOL-370 100ML BTL INJ ONE ×2 (13:20→13:26)
[2023-08-06] MEDS ORDERED: ZOLPIDEM 5 MG TAB PO PRN (13:33)
[2023-08-06] MEDS ORDERED: RX INFO: IV CONTRAST WAS GIVEN 1 EACH MISC MISCELLANE PRN (13:33)
[2023-08-06] MEDS ORDERED: MAG HYDROX/AL HYDROX/SIMETH 30 ML CUP PO PRN (13:33)
[2023-08-06] MEDS ORDERED: ATROPINE SULFATE 0.1 MG/ML 10ML SYRINGE IV PRN (13:33)
--- NOTE | 2023-08-06 13:40 | P.PCN ---
Date of Procedure: 08/06/23 Operative Findings: CARDIAC CATHETERIZATION AND PERCUTANEOUS CORONARY INTERVENTION PERFORMING PHYSICIAN: Malik Carrasquillo MD, [facility] PROCEDURE PERFORMED: 1. Selective right and left coronary angiogram 2. Left heart catheterization and right heart catheterization 3. Successful stenting of mid left circumflex using 3.5 x 20 Xience KRYSTIAN with an excellent angiographic results 4. Ultrasound-guided access of the right radial artery INDICATION: Shortness of breath concerning for angina COMPLICATION: None APPROACH: Right medial artery LEVEL OF SEDATION: Moderate with the sedation time off 45 minutes PROCEDURE DESCRIPTION: After obtaining informed was brought to the cardiac Nodulizer the right radial a rtery was cannulated with ultrasound guidance micropuncture wire passed easily then at least a 6 Burkinan sheath of the right radial artery. I did exchange the venous sheath over 018 wire into a 6 Burkinan sheath. Subsequently right heart catheterization was performed using 6 [place] catheter. Subsequently left heart catheterization was performed using the pigtail catheter. And I did selective right and left coronary angiogram using JR4 and JL 3 point catheters. After that I decided to intervene on the left circumflex coronary artery. Anticoagulation was initiated using heparin with continuous ACT monitoring. I did engage the left I did wired the left circumflex using a Runthrough wire. After that I did enter vascular imaging and that showed a diameter around 3.5 mm. I decided to start with NC balloon. I attempted to advance a 2.5 mm noncompliant but the balloon would not cross the lesion but I was able to get the balloon close the patient presented: Angioplasty was performed of the left circumflex midportion using 2.5 V was inflated multiple times. After dilated advance a 3.5 x 23 mm stent where the stent was positioned under fluoroscopic guidance and deployed under 14 isak for 20 seconds. Intravascular ultrasound performed in subsequently a postdilated the stent using 3.5 mm noncompliant balloon. Final angiogram showed excellent angiographic results and the proced ure was completed with local SELECTIVE CORONARY ANGIOGRAM: The right coronary artery: Large-caliber vessel and a dominant vessel with a distal lesion hazy appears to be in the range of 60%. Left main: Not exist. The left circumflex and LAD have separate ostium The left circumflex: Large-caliber vessel with severe disease in the midportion with a very calcified lesion The left anterior descending artery: Large-caliber vessel with only mild disease. The LAD gives rise into a diagonal branch which appears to have mild disease as well. HEMODYNAMICS: The pulmonary capillary wedge pressure was 6 mmHg PA pressures were as follows systolic of 45 and diastolic of 12 mmHg and mean of 28 mmHg RV pressures were as follows systolic of 42 and end-diastolic of 3 mmHg RA pressure was 2 mmHg The LVEDP was 5 mmHg Transpulmonary gradient was 23 mmHg CONCLUSION: Left and right sided filling pressure Pulmonary hypertension likely related to WHO 1 pulmonary hypertension. Calcified right and left coronary systems Critical disease involving the mid left circumflex. I performed successful stenting of the left circumflex as described above Intermediate disease involving the distal LAD with a hazy and calcified lesion POSTPROCEDURE MANAGEMENT: 1. Dual antiplatelet therapy using aspirin and Plavix for 6 month 2. Aggressive cholesterol control 3. Follow-up with the patient
[2023-08-06 16:20] LABS: Glucose,Whole Blood 137 mg/dL (70-110)
[2023-08-06 20:03] LABS: Glucose,Whole Blood 173 mg/dL (70-110)
[2023-08-06] MEDS: MONTELUKAST 10 MG TAB PO SCH (21:17)
[2023-08-06] MEDS: NYSTATIN 100,000 UNIT/GM POWD 15 GM TOPICAL SCH (21:17)
[2023-08-07] MEDS: CEFEPIME 2 GM in SODIUM CHLORIDE 0.9% 100 ML IVPB SCH (04:31)
--- NOTE | 2023-08-07 04:34 | P.CNPUL ---
History of Present Illness Consult date: 08/07/23 Requesting physician: Pat Angulo Reason for consult: abnormal CXR/CT Chief complaint: lightheaded, weakness, shaking History of present illness: Patient is a 73-year-old white female with past medically significant for diabetes mellitus, DVT, obesity, pneumonia. Her primary care provider is Dr. Angulo. Patient had a recent extended hospitalization 04/24/2023 through 05/13/2023 mostly for exacerbation of diastolic heart failure, She also did have positive sputum and urine cultures for Pseudomonas aeruginosa, she was treated with a course of cefepime and discharged on a course of ciprofloxacin. She was also sent home on oxygen 3 L/min nasal cannula. She has no known pre-existing lung disease. Non-smoker. She returned to the emergency room 2 days ago complaining of generalized shaking, weakness, fatigue ongoing for the last 3 days. She does endorse exertional shortness of breath and an occasional cough with yellow phlegm. Denies fevers. Denies any hemoptysis. Denies any chest pain. She is currently sitting up in bed, 3 L/min nasal cannula. She is in no acute respiratory distress at rest. Chest x-ray on arrival shows hypoventilatory changes with patchy ground place changes persisting in the mid to lower lungs. There is concern for interstitial pneumonitis or atypica l/COVID-pneumonia's. Negative for influenza, RSV, COVID. Procalcitonin level pending. NT proBNP was elevated. Patient was started on Lasix 40 mg twice daily. She has been urinating frequently. Echocardiogram done on previous admission shows a normal left ventricular ejection fraction estimated at 50 to 55%, severe pulmonary hypertension, moderate to severe tricuspid regurgitation, and a small pericardial effusion. She was taken to the [facility] yesterday, apparently she had a scheduled heart catheterization, she did receive a stent to the mid left circumflex. She has a right wrist TR band on. CBC on arrival unremarkable. No leukocytosis. BMP on arrival also unremarkable. Creatinine 0.9. Troponin less than 0.012. NT proBNP 2030. Afebrile. Vital signs are stable. Review of Systems REVIEW OF SYSTEMS: CONSTITUTIONAL: Denies any recent significant weight loss or weight gain. Denies fevers/chills. Admits generalized fatigue and shaking EYES: Denies change in vision. EARS, NOSE, MOUTH, THROAT: Denies headaches, denies sore throat. CARDIOVASCULAR: Denies chest pain, palpitations or syncopal episodes. RESPIRATORY: See HPI GASTROINTESTINAL: Denies change in appetite, abdominal pain, nausea and vomiting, or diarrhea GENITOURINARY: Denies hematuria, denies infections. MUSKULOSKELETAL: Denies pain, denies swelling. INTEGUMENTARY: Denies rash, denies eczema. NEUROLOGICAL: Denies recent memory loss, no recent seizure activity. PSYCHIATRIC: Denies anxiety, denies depression. HEMATOLOGIC/LYMPHATIC: Denies anemia, denies enlarged lymph node Past Medical History Past Medical History: Heart Failure, Diabetes Mellitus, Deep Vein Thrombosis (DVT), Eye Disorder, Osteoarthritis (OA), Pneumonia Additional Past Medical History / Comment(s): Seasonal allergies. Macular degeneration, Rt eye worse. Edema in legs, hx water blisters, wears jobst stockings. kidney stones. Hx blood clot in leg History of Any Multi-Drug Resistant Organisms: None Reported Past Surgical History: Hysterectomy, Tubal Ligation Additional Past Surgical History / Comment(s): Multiple Kidney stone removals, LITHOTRIPSY. Blood clot removal left thigh, placed stent lt groin 2012 est. Past Anesthesia/Blood Transfusion Reactions: Previous Problems w/ Anesthesia Additional Past Anesthesia/Blood Transfusion Reaction / Comment(s): difficulty with breathing when waking up from previous kidney stone surgery x1 Past Psychological History: No Psychological Hx Reported Smoking Status: Former smoker Past Alcohol Use History: None Reported Additional Past Alcohol Use History / Comment(s): smoker for 6 years, 1 ppd, quit 2001 Past Drug Use History: None Reported - Past Family History Mother Family Medical History: Cancer Additional Family Medical History / Comment(s): colon cancer Father Family Medical History: Cancer Additional Family Medical History / Comment(s): lung cancer Sister(s) Family Medical History: Cancer Additional Family Medical History / Comment(s): breast cancer Brother(s) Family Medical History: Cancer, Pulmonary Embolus Daughter(s) Additional Family Medical History / Comment(s): daughter developed blood clot to shoulder and neck after IV PICC line insertion, TIA. granddaughter hx blood clot to groin Medications and Allergies Home Medications Medication Instructions Recorded Confirmed Type Acetaminophen [Tylenol 8 Hour] 650 mg PO Q8H PRN 12/01/18 08/05/23 History Albuterol Sulfate [Proair Hfa] 2 puff INHALATION RT-Q6H PRN 12/01/18 08/05/23 History Aspirin EC [Ecotrin Low Dose] 81 mg PO BID 12/01/18 08/05/23 History metFORMIN HCL [Glucophage] 500 mg PO BID 12/01/18 08/05/23 History Cholecalciferol [Vitamin D3 (25 25 mcg PO BID 04/24/23 08/05/23 History Mcg = 1000 Iu)] Atorvastatin [Lipitor] 20 mg PO DAILY tab 05/13/23 08/05/23 Rx Dapagliflozin Propanediol [Farxiga] 10 mg PO DAILY tab 05/13/23 08/05/23 Rx Pantoprazole [Protonix] 40 mg PO AC-BRKFST tab 05/13/23 08/05/23 Rx Docusate [Colace] 100 mg PO BID 08/05/23 08/05/23 History Furosemide [Lasix] 60 mg PO BID@0900,1600 08/05/23 08/05/23 History Metoprolol Tartrate [Lopressor] 25 mg PO BID 08/05/23 08/05/23 History Montelukast [Singulair] 10 mg PO HS 08/05/23 08/05/23 History oxyBUTYnin chloride [Ditropan] 5 mg PO BID 08/05/23 08/05/23 History Allergies Allergy/AdvReac Type Severity Reaction Status Date / Time amoxicillin Allergy Rash/Hives Verified 08/05/23 22:35 dill weed Allergy Rash/Hives Uncoded 08/05/23 22:35 Physical Exam Vitals: Vital Signs Temp Pulse Pulse Resp BP Pulse Ox 08/07/23 02:00 79 18 08/07/23 00:00 79 18 110/69 94 L 08/06/23 20:00 97.5 F L 98 20 112/75 96 08/06/23 15:19 98.2 F 94 18 98/61 92 L 08/06/23 11:59 93 92 20 08/06/23 07:55 93 92 20 08/06/23 07:48 93 20 98/63 93 L 08/06/23 04:00 92 20 118/74 93 L Intake and Output 08/06/23 08/06/23 08/07/23 14:59 22:59 06:59 Intake Total 560 240 Balance 560 240 Intake: IV 200 Oral 360 240 Other: Voiding Method Bedside Commode Bedside Commode # Voids 5 GENERAL EXAM: Alert, 73-year-old obese white female, comfortable in no apparent distress. HEAD: Normocephalic and atraumatic EYES: Normal reaction of pupils, equal size. NOSE: Clear with pink turbinates. THROAT: No erythema or exudates. NECK: No masses, no JVD. CHEST: No chest wall deformity. LUNGS: Equal air entry with bibasilar inspiratory crackles. No wheezing, rhonchi, or focal dullness. On 3 L/min nasal cannula.. No conversational dyspnea or accessory muscle use.. CVS: S1 and S2 normal with no audible murmur, regular rhythm. No extra heart sounds ABDOMEN: No hepatosplenomegaly, active bowel sounds, no guarding or rigidity. SPINE: No scoliosis or deformity SKIN: No rashes CENTRAL NERVOUS SYSTEM: No focal deficits, tone is normal in all 4 extremities. EXTREMITIES: There is no peripheral edema, clubbing, or cyanosis. Peripheral pulses are intact. TR band in place, no hematoma. Results - Laboratory Findings CBC and BMP: 08/05/23 16:59 08/05/23 16:59 PT/INR, D-dimer PT 10.9 sec (10.0-12.5) 08/05/23 16:59 INR 1.0 (<1.2) 08/05/23 16:59 Abnormal lab findings: Abnormal Labs 08/05/23 08/05/23 08/05/23 16:59 16:59 17:44 RBC 3.45 L Lymphocytes # 0.7 L Sodium 134 L BUN 28 H Glucose 132 H POC Glucose (mg/dL) 128 H AST 56 H Albumin 3.1 L 08/06/23 08/06/23 08/06/23 06:08 11:35 16:19 RBC Lymphocytes # Sodium BUN Glucose POC Glucose (mg/dL) 120 H 121 H 137 H AST Albumin 08/06/23 20:02 RBC Lymphocytes # Sodium BUN Glucose POC Glucose (mg/dL) 173 H AST Albumin - Diagnostic Findings Chest x-ray: image reviewed Assessment and Plan Assessment: Coronary artery disease, status post PCI/stent to the mid left circumflex done 08/06/2023 Chronic diastolic congestive heart failure Severe pulmonary hypertension Moderate to severe tricuspid regurgitation Acute hypoxemic respiratory failure, possibly secondary to above, however, unable to exclude infectious etiology at this point. Chest x-ray shows hypoventilatory changes with patchy ground glass opacities persisting in the mid to lower lungs. Differential includes interstitial pneumonitis or atypical pneumonia. Patient negative for influenza, RSV, COVID. She did have a positive sputum culture for Pseudomonas aeruginosa on her recent hospital admission in April,. This was treated with cefepime and patient was discharged on a course of ciprofloxacin. Recent UTI, isolated organism Pseudomonas aeruginosa, treated same as above History of kidney stones Diabetes mellitus type 2 History of hyperlipidemia History of DVT History of pneumonia Morbid obesity, with a BMI of 42.6 kg/m Plan: Patient's medications, labs, chest x-ray reviewed Continue supplemental oxygen, currently on 3 L/min nasal cannula, which is what she was discharged on in April, Patient continues on Lasix 40 mg p.o. twice daily, also on dapagliflozin. She was started on dual antiplatelet medications per cardiology Added empiric antibiotics. Procalcitonin level pending. Antibiotics will be managed accordingly. We will continue to follow I have personally seen and examined the patient, performed the documentation and the assessment and plan as written. Number of minutes spent on the visit:20 Time with Patient: Greater than 30
[2023-08-07 06:26] LABS: Glucose,Whole Blood 128 mg/dL (70-110)
[2023-08-07] MEDS ORDERED: HEPARIN SODIUM,PORCINE (1 ML) 2,500 UNIT in SODIUM CHLORIDE 0.9% 250 ML IRRIGATION PRN (07:00)
[2023-08-07] MEDS ORDERED: HEPARIN SODIUM,PORCINE 10,000 UNIT in SODIUM CHLORIDE 0.9% 1,000 ML IRRIGATION PRN (07:00)
[2023-08-07 08:06] LABS: Basophils % (A) 1 %; Eosinophils # (A) 0.3 k/uL (0-0.7); Eosinophils % (A) 5 %; HCT 32.4 % (34.0-46.0); HGB 10.8 gm/dL (11.4-16.0); Hypochromasia Slight; Lymphocytes # (A) 1.3 k/uL (1.0-4.8); Lymphocytes % (A) 21 %; MCH 33.2 pg (25.0-35.0); MCHC 33.3 g/dL (31.0-37.0); MCV 99.8 fL (80.0-100.0); Macrocytosis Slight; Mean Platelet Volume 8.2; Monocytes # (A) 0.4 k/uL (0-1.0); Monocytes % (A) 7 %; Neutrophils # (A) 4.1 k/uL (1.3-7.7); Neutrophils % (A) 65 %; Platelet Count 178 k/uL (150-450); Poikilocytosis Slight; RBC 3.25 m/uL (3.80-5.40); RDW 14.9 % (11.5-15.5); WBC 6.3 k/uL (3.8-10.6)
[2023-08-07 08:17] LABS: ALT 28 U/L (4-34); AST 49 U/L (14-36); African American GFR (CKD) >90 (>60 ml/min/1.73 sqM); Albumin 2.9 g/dL (3.5-5.0); Alkaline Phosphatase 130 U/L (38-126); Anion Gap 8 mmol/L; Blood Urea Nitrogen 15 mg/dL (7-17); Calcium 8.5 mg/dL (8.4-10.2); Carbon Dioxide 25 mmol/L (22-30); Chloride 104 mmol/L (98-107); Glucose 154 mg/dL (74-99); Non-African American GFR(CKD) 86 (>60 ml/min/1.73 sqM); Potassium 3.7 mmol/L (3.5-5.1); Sodium 137 mmol/L (137-145); Total Bilirubin 0.8 mg/dL (0.2-1.3); Total Protein 5.8 g/dL (6.3-8.2)
[2023-08-07] MEDS: CLOPIDOGREL 75 MG TAB PO SCH (08:49)
[2023-08-07] MEDS: ASPIRIN 81 MG PO SCH (08:49)
--- NOTE | 2023-08-07 11:01 | P.PN ---
Subjective Progress Note Date: 08/07/23 Consult reason: hypotension History of present illness: History of present illness: This is a 73-year-old female patient of Dr. Carrasquillo with past medical history of diabetes mellitus type 2, pulmonary hypertension, tricuspid regurgitation, chronic diastolic heart failure, moderate to severe coronary calcifications per CT scan, hypertension, dyslipidemia, history of DVT. We have been asked to evaluate the patient for hypotension. Patient had a hospitalization in April at which time she was diagnosed with diastolic heart failure. She has had follo w-up with Dr. Carrasquillo in the office on 07/24 and is scheduled for cardiac catheterization on 08/10. Patient states she came to the hospital because she was feeling weak and shaky. She states her breathing was okay. No chest pain and no dizziness. She may have had a little bit of lightheadedness when she first got up. She was very drowsy and sleepy all day. Occasional nausea. She has had a little cough with yellow sputum production. She does have history of smoking and quit many years ago. She denies having any palpitations. She admits to not being active at home. Patient presented with blood pressure of 98/69. EKG sinus rhythm Chest x-ray: Hypoventilatory changes but with patchy groundglass changes persisting in the mid and lower lungs. Consider interstitial pneumonitis or atypical COVID-pneumonia. CBC unremarkable. INR 1. Sodium 134, potassium 4.4, BUN 28 creatinine 0.9. Troponin negative x 1. proBNP 2030. AST 56 otherwise liver function test are normal. Magnesium 1.6. Calcium 1.9. Home cardiac medications: Aspirin 81 mg twice daily, atorvastatin 20 mg daily, Farxiga 10 mg daily, Lasix 60 mg twice daily, Lopressor 25 mg twice daily. Echocardiogram performed 04/25/2023 reveals normal EF, moderate to severe TR, severe pulmonary hypertension. 08/06 Patient states that she had a good night, breathing is improved. She denies having any chest pain. Yesterday, patient underwent cardiac catheterization with Dr. Carrasquillo that revealed pulmonary hypertension, calcified right and left coronary systems, critical disease involving the mid left circumflex status post stenting of the left circumflex. Intermediate disease involving the distal LAD and hazy calcified lesion. Patient has been started on Plavix aspirin, continue atorvastatin. Right wrist no sign of hematoma. Physical examination: Gen: This is a 73-year-old morbidly obese female in no acute distress VS: reviewed HEENT: Head is atraumatic, normocephalic. Pupils equal, round. Sclerae is anicteric. NECK: Supple. No JVD. LUNGS: Diminished breath sounds bilaterally. No intercostal retractions. HEART: Regular rate and rhythm. Systolic murmur. ABDOMEN: Soft No tenderness. EXTREMITIES: 1+ lower extremity edema. No calf tenderness. NEUROLOGICAL: Patient is awake, alert and oriented x3. Assessment: Generalized weakness, cough and sputum production Pulmonary hypertension Chronic diastolic heart failure Moderate to severe coronary calcifications on CT rule out coronary artery disease Hypertension Dyslipidemia Moderate to severe TR Plan: Continue current cardiac medications Patient is cleared for discharge from cardiology May follow-up with Dr. Carrasquillo in 1 week. Nurse practitioner note has been reviewed, I agree with documented findings and plan of care. Patient was seen and examined. Objective - Vital Signs Vital signs: Vital Signs Temp 97.5 F L 08/06/23 20:00 Pulse 77 08/07/23 04:00 Resp 16 08/07/23 04:00 BP 121/65 08/07/23 04:00 Pulse Ox 94 L 08/07/23 04:00 FiO2 Intake & Output 08/06/23 08/07/23 08/07/23 18:59 06:59 18:59 Intake Total 800 180 Balance 800 180 Intake: IV 200 Oral 600 180 Other: Voiding Method Bedside Commode # Voids 5 - Labs CBC & Chem 7: 08/07/23 07:38 08/07/23 07:38 Labs: Abnormal Lab Results - Last 24 Hours (Table) 08/06/23 08/06/23 08/06/23 Range/Units 11:35 16:19 20:02 RBC (3.80-5.40) m/uL Hgb (11.4-16.0) gm/dL Hct (34.0-46.0) % Glucose (74-99) mg/dL POC Glucose (mg/dL) 121 H 137 H 173 H (70-110) mg/dL AST (14-36) U/L Alkaline Phosphatase (38-126) U/L Total Protein (6.3-8.2) g/dL Albumin (3.5-5.0) g/dL 03/14/24 03/14/24 03/14/24 Range/Units 06:24 07:38 07:38 RBC 3.25 L (3.80-5.40) m/uL Hgb 10.8 L (11.4-16.0) gm/dL Hct 32.4 L (34.0-46.0) % Glucose 154 H (74-99) mg/dL POC Glucose (mg/dL) 128 H (70-110) mg/dL AST 49 H (14-36) U/L Alkaline Phosphatase 130 H (38-126) U/L Total Protein 5.8 L (6.3-8.2) g/dL Albumin 2.9 L (3.5-5.0) g/dL
[2023-08-07 11:45] LABS: Glucose,Whole Blood 131 mg/dL (70-110)
[2023-08-07 16:46] LABS: Glucose,Whole Blood 114 mg/dL (70-110)
--- NOTE | 2023-08-07 16:55 | P.PN ---
Subjective Progress Note Date: 08/07/23 This is a 73-year-old female patient who presented with concerns of increased weakness and shakiness over the past 3 days patient recently had a prolonged hospitalization for CHF exacerbation as discharge to rehab. Patient was home for a week or 2 when symptoms started over the past few days. Patient denies fever but does report cough. Denies sick contacts. Patient had scheduled for cardiac catheterization on [address] Joseph outpatient. Patient has past medical history of diastolic heart failure, diabetes mellitus, DVT, osteoarthritis. Chest x-ray completed showing hypoventilatory changes but with patchy groundglass changes persist in the mid and lower lung or interstitial pneumonitis or atypical pneumonitis. EKG completed showing sinus rhythm. Troponin negative.. BNP 2029. White blood cell 6.9 in globin 11.4. Current vital signs temp 93, heart rate 93, respiratory rate 24, blood pressure 05/29/1955 with pulse ox 96% on 3 L. This time cardiology services have been consulted plans for cardiac catheterization inpatient. Due to patient's chest x-ray will consult pulmonary services in order influenza and COVID-19 test. This time patient is resting comfortably in bed. Patient's at bedside all questions answered. On 08/07/2023 patient was seen and examined on the medical floor she is alert and oriented 3 in no apparent distress she is complaining of generalized weakness, she is also complaining of cough and shortness of breath with any activity otherwise she denies any complaints there is no fever or chills no headache or dizziness no chest pain no nausea or vomiting no abdominal pain no diarrhea and no urinary symptoms, pro-calcitonin level was significantly elevated at 2.26 patient was started on IV cefepime, she was evaluated by cardiology and was cleared from cardiology standpoint, pulmonary are following. Objective - Vital Signs Vital signs: Vital Signs Temp 97.5 F L 08/06/23 20:00 Pulse 86 08/07/23 12:00 Resp 18 08/07/23 12:00 BP 134/76 08/07/23 12:00 Pulse Ox 96 08/07/23 12:00 FiO2 Intake & Output 08/06/23 08/07/23 08/07/23 18:59 06:59 18:59 Intake Total 800 540 Balance 800 540 Weight 106.254 kg Intake: IV 200 Oral 600 540 Other: Voiding Method Bedside Commode Bedside Commode # Voids 5 1 # Bowel Movements 1 - Exam Head normocephalic Neck supple Lungs clear to auscultation bilaterally no wheezing or crackles Heart regular rate and rhythm S1-S2, no rub or gallop Abdomen is soft nontender nondistended positive bowel sounds no hepatosplenomegaly Extremities no edema Neuro alert and orientated to 3 - Labs CBC & Chem 7: 08/07/23 07:38 08/07/23 07:38 Labs: Abnormal Lab Results - Last 24 Hours (Table) 08/06/23 08/06/23 08/07/23 Range/Units 16:19 20:02 06:24 RBC (3.80-5.40) m/uL Hgb (11.4-16.0) gm/dL Hct (34.0-46.0) % Glucose (74-99) mg/dL POC Glucose (mg/dL) 137 H 173 H 128 H (70-110) mg/dL AST (14-36) U/L Alkaline Phosphatase (38-126) U/L Total Protein (6.3-8.2) g/dL Albumin (3.5-5.0) g/dL Procalcitonin (0.02-0.09) ng/mL 08/07/23 08/07/23 08/07/23 Range/Units 07:38 07:38 07:38 RBC 3.25 L (3.80-5.40) m/uL Hgb 10.8 L (11.4-16.0) gm/dL Hct 32.4 L (34.0-46.0) % Glucose 154 H (74-99) mg/dL POC Glucose (mg/dL) (70-110) mg/dL AST 49 H (14-36) U/L Alkaline Phosphatase 130 H (38-126) U/L Total Protein 5.8 L (6.3-8.2) g/dL Albumin 2.9 L (3.5-5.0) g/dL Procalcitonin 2.61 H (0.02-0.09) ng/mL 08/07/23 Range/Units 11:44 RBC (3.80-5.40) m/uL Hgb (11.4-16.0) gm/dL Hct (34.0-46.0) % Glucose (74-99) mg/dL POC Glucose (mg/dL) 131 H (70-110) mg/dL AST (14-36) U/L Alkaline Phosphatase (38-126) U/L Total Protein (6.3-8.2) g/dL Albumin (3.5-5.0) g/dL Procalcitonin (0.02-0.09) ng/mL Assessment and Plan Assessment: 1. Generalized weakness and cough. COVID-19 and influenza ordered 2. Chronic diastolic congestive heart failure 3. History of pulmonary hypertension 4. Moderate severe coronary calcification seen on CT. Cardiac catheterization scheduled per cardiology 5. History of essential hypertension 6. History of hyperlipidemia 7. History of diabetes mellitus 8. History of macular degeneration 9. History of DVT At this time patient will be admitted Cardiology and pulmonary service is consulted Influenza and COVID-19 ordered Repeat labs ordered Cardiac catheterization scheduled for 08/06/2023
--- NOTE | 2023-08-07 17:57 | XR ---
EXAMINATION TYPE: XR chest 1V portable DATE OF EXAM: 08/07/2023 Comparison: 08/05/2023 Clinical History: 74-year-old female Follow-up pneumonia Findings: Low lung volumes. Heart upper limits of normal in size. Persists. Prominent interstitial density pers ists especially in the mid and lower lungs. Impression: Hypoventilatory changes. Prominent interstitial densities persists in the mid and lower lungs. Findin gs may be seen with atypical pneumonia. Some of the changes may be chronic as the appearance was wors e on 05/12/2023.
[2023-08-07 20:48] LABS: Glucose,Whole Blood 147 mg/dL (70-110)
[2023-08-08 05:47] LABS: Glucose,Whole Blood 135 mg/dL (70-110)
[2023-08-08 09:53] LABS: Basophils % (A) 1 %; Eosinophils # (A) 0.3 k/uL (0-0.7); Eosinophils % (A) 5 %; HCT 32.2 % (34.0-46.0); HGB 10.4 gm/dL (11.4-16.0); Hypochromasia Slight; Lymphocytes % (A) 16 %; MCH 32.4 pg (25.0-35.0); MCHC 32.3 g/dL (31.0-37.0); MCV 100.4 fL (80.0-100.0); Macrocytosis Slight; Mean Platelet Volume 8.6; Monocytes # (A) 0.4 k/uL (0-1.0); Monocytes % (A) 6 %; Neutrophils # (A) 4.5 k/uL (1.3-7.7); Neutrophils % (A) 70 %; Platelet Count 194 k/uL (150-450); Poikilocytosis Slight; RBC 3.21 m/uL (3.80-5.40); RDW 14.7 % (11.5-15.5); WBC 6.4 k/uL (3.8-10.6)
--- NOTE | 2023-08-08 09:53 | P.PN ---
Subjective Progress Note Date: 08/08/23 This is a 73-year-old female patient who presented with concerns of increased weakness and shakiness over the past 3 days patient recently had a prolonged hospitalization for CHF exacerbation as discharge to rehab. Patient was home for a week or 2 when symptoms started over the past few days. Patient denies fever but does report cough. Denies sick contacts. Patient had scheduled for cardiac catheterization on [address] Joseph outpatient. Patient has past medical history of diastolic heart failure, diabetes mellitus, DVT, osteoarthritis. Chest x-ray completed showing hypoventilatory changes but with patchy groundglass changes persist in the mid and lower lung or interstitial pneumonitis or atypical pneumonitis. EKG completed showing sinus rhythm. Troponin negative.. BNP 2030. White blood cell 6.9 in globin 11.4. Current vital signs temp 93, heart rate 93, respiratory rate 24, blood pressure 05/29/1955 with pulse ox 96% on 3 L. This time cardiology services have been consulted plans for cardiac catheterization inpatient. Due to patient's chest x-ray will consult pulmonary services in order influenza and COVID-19 test. This time patient is resting comfortably in bed. Patient's at bedside all questions answered. On 08/07/2023 patient was seen and examined on the medical floor she is alert and oriented 3 in no apparent distress she is complaining of generalized weakness, she is also complaining of cough and shortness of breath with any activity otherwise she denies any complaints there is no fever or chills no headache or dizziness no chest pain no nausea or vomiting no abdominal pain no diarrhea and no urinary symptoms, pro-calcitonin level was significantly elevated at 2.26 patient was started on IV cefepime, she was evaluated by cardiology and was cleared from cardiology standpoint, pulmonary are following. On 08/08/2023 patient's alert and oriented 3. Current vital signs temp 97.9, heart rate 82, respiratory rate 16, blood pressure 103/67 with pulse ox of 95% on 2 L. Patient remains on IV Maxipime cardiology services have cleared patient. Patient denies chest pain. Patient denies nausea vomiting or diarrhea. Patient denies any urinary burning or frequency Objective - Vital Signs Vital signs: Vital Signs Temp 97.9 F 08/08/23 08:40 Pulse 82 08/08/23 08:40 Resp 16 08/08/23 08:40 BP 103/67 08/08/23 08:40 Pulse Ox 95 08/08/23 08:40 FiO2 Intake & Output 08/07/23 08/08/23 08/08/23 18:59 06:59 18:59 Intake Total 900 240 358 Balance 900 240 358 Weight 106.254 kg 116 kg Intake: Oral 900 240 358 Other: Voiding Method Bedside Commode Bedside Commode Bedside Commode # Voids 1 1 1 # Bowel Movements 1 - Exam Head normocephalic Neck supple Lungs clear to auscultation bilaterally no wheezing or crackles Heart regular rate and rhythm S1-S2, no rub or gallop Abdomen is soft nontender nondistended positive bowel sounds no hepatosplenomegaly Extremities no edema Neuro alert and orientated to 3 - Labs CBC & Chem 7: 08/07/23 07:38 08/07/23 07:38 Labs: Abnormal Lab Results - Last 24 Hours (Table) 08/07/23 08/07/23 08/07/23 Range/Units 07:38 11:44 16:45 POC Glucose (mg/dL) 131 H 114 H (70-110) mg/dL Procalcitonin 2.61 H (0.02-0.09) ng/mL 08/07/23 08/08/23 Range/Units 20:37 05:43 POC Glucose (mg/dL) 147 H 135 H (70-110) mg/dL Procalcitonin (0.02-0.09) ng/mL Assessment and Plan Assessment: 1. Generalized weakness and cough. COVID-19 and influenza ordered 2. Chronic diastolic congestive heart failure 3. Acute hypoxic respiratory failure secondary to infectious etiology. Elevated pro-calcitonin level. Negative RSV Covid and influenza 4. History of pulmonary hypertension 5. Moderate severe coronary calcification seen on CT. Cardiac catheterization scheduled per cardiology 6. History of essential hypertension 7. History of hyperlipidemia 8. History of diabetes mellitus 9. History of macular degeneration 10. History of DVT At this time patient will be admitted Cardiology and pulmonary service is consulted Status post stent to the left circumflex Patient remains on IV antibiotics Repeat labs ordered
--- NOTE | 2023-08-08 09:58 | P.PN ---
Subjective Progress Note Date: 08/08/23 Consult reason: hypotension History of present illness: History of present illness: This is a 73-year-old female patient of Dr. Carrasquillo with past medical history of diabetes mellitus type 2, pulmonary hypertension, tricuspid regurgitation, chronic diastolic heart failure, moderate to severe coronary calcifications per CT scan, hypertension, dyslipidemia, history of DVT. We have been asked to evaluate the patient for hypotension. Patient had a hospitalization in April at which time she was diagnosed with diastolic heart failure. She has had follo w-up with Dr. Carrasquillo in the office on 07/24 and is scheduled for cardiac catheterization on 08/10. Patient states she came to the hospital because she was feeling weak and shaky. She states her breathing was okay. No chest pain and no dizziness. She may have had a little bit of lightheadedness when she first got up. She was very drowsy and sleepy all day. Occasional nausea. She has had a little cough with yellow sputum production. She does have history of smoking and quit many years ago. She denies having any palpitations. She admits to not being active at home. Patient presented with blood pressure of 98/69. EKG sinus rhythm Chest x-ray: Hypoventilatory changes but with patchy groundglass changes persisting in the mid and lower lungs. Consider interstitial pneumonitis or atypical COVID-pneumonia. CBC unremarkable. INR 1. Sodium 134, potassium 4.4, BUN 28 creatinine 0.9. Troponin negative x 1. proBNP 2030. AST 56 otherwise liver function test are normal. Magnesium 1.6. Calcium 1.9. Home cardiac medications: Aspirin 81 mg twice daily, atorvastatin 20 mg daily, Farxiga 10 mg daily, Lasix 60 mg twice daily, Lopressor 25 mg twice daily. Echocardiogram performed 04/25/2023 reveals normal EF, moderate to severe TR, severe pulmonary hypertension. 08/06 Patient states that she had a good night, breathing is improved. She denies having any chest pain. Yesterday, patient underwent cardiac catheterization with Dr. Carrasquillo that revealed pulmonary hypertension, calcified right and left coronary systems, critical disease involving the mid left circumflex status post stenting of the left circumflex. Intermediate disease involving the distal LAD and hazy calcified lesion. Patient has been started on Plavix aspirin, continue atorvastatin. Right wrist no sign of hematoma. 08/07 Patient has been started on antibiotics for possible pneumonia. She states her breathing is a little bit better. She denies having any chest pain. Blood pressure 103/67, heart rate 82, pulse ox 95% on 2 L nasal cannula. Repeat blood work reveals WBC 6.4, hemoglobin 10.4, platelet count 194. Physical examination: Gen: This is a 73-year-old morbidly obese female in no acute distress VS: reviewed HEENT: Head is atraumatic, normocephalic. Pupils equal, round. Sclerae is anicte butch. NECK: Supple. No JVD. LUNGS: Diminished breath sounds bilaterally. No intercostal retractions. HEART: Regular rate and rhythm. Systolic murmur. ABDOMEN: Soft No tenderness. EXTREMITIES: 1+ lower extremity edema. No calf tenderness. NEUROLOGICAL: Patient is awake, alert and oriented x3. Assessment: Generalized weakness, cough and sputum production, possible pneumonia await minute we did see her waiting on her echo to come back so she was 1 Pulmonary hypertension Chronic diastolic heart failure Moderate to severe coronary calcifications on CT ruled in for coronary artery disease as above Hypertension Dyslipidemia Moderate to severe TR Plan: Continue current cardiac medications Patient is cleared for discharge from cardiology and may follow-up with Dr. Carrasquillo in 1 week. Cardiology will sign off this case and follow on an as-needed basis. Please reconsult for any new concerns. Nurse practitioner note has been reviewed, I agree with documented findings and plan of care. Patient was seen and examined. Objective - Vital Signs Vital signs: Vital Signs Temp 97.9 F 08/08/23 08:40 Pulse 82 08/08/23 08:40 Resp 16 08/08/23 08:40 BP 103/67 08/08/23 08:40 Pulse Ox 95 08/08/23 08:40 FiO2 Intake & Output 08/07/23 08/08/23 08/08/23 18:59 06:59 18:59 Intake Total 900 240 358 Balance 900 240 358 Weight 106.254 kg 116 kg Intake: Oral 900 240 358 Other: Voiding Method Bedside Commode Bedside Commode Bedside Commode # Voids 1 1 1 # Bowel Movements 1 - Labs CBC & Chem 7: 08/08/23 09:32 08/07/23 07:38 Labs: Abnormal Lab Results - Last 24 Hours (Table) 08/07/23 08/07/23 08/07/23 Range/Units 07:38 11:44 16:45 POC Glucose (mg/dL) 131 H 114 H (70-110) mg/dL Procalcitonin 2.61 H (0.02-0.09) ng/mL 08/07/23 08/08/23 Range/Units 20:37 05:43 POC Glucose (mg/dL) 147 H 135 H (70-110) mg/dL Procalcitonin (0.02-0.09) ng/mL
[2023-08-08 10:03] LABS: ALT 23 U/L (4-34); AST 31 U/L (14-36); African American GFR (CKD) >90 (>60 ml/min/1.73 sqM); Albumin 2.8 g/dL (3.5-5.0); Alkaline Phosphatase 112 U/L (38-126); Anion Gap 8 mmol/L; Blood Urea Nitrogen 12 mg/dL (7-17); Calcium 8.4 mg/dL (8.4-10.2); Carbon Dioxide 26 mmol/L (22-30); Chloride 102 mmol/L (98-107); Glucose 189 mg/dL (74-99); Non-African American GFR(CKD) 88 (>60 ml/min/1.73 sqM); Potassium 3.4 mmol/L (3.5-5.1); Sodium 136 mmol/L (137-145); Total Bilirubin 0.7 mg/dL (0.2-1.3); Total Protein 5.7 g/dL (6.3-8.2)
--- NOTE | 2023-08-08 10:19 | P.PN ---
Subjective Progress Note Date: 08/08/23 Principal diagnosis: Status post stent placement. Patient is a 73-year-old white female with past medically significant for diabetes mellitus, DVT, obesity, pneumonia. Her primary care provider is Dr. Angulo. Patient had a recent extended hospitalization 04/24/2023 through mostly for exacerbation of diastolic heart failure, She also did have positive sputum and urine cultures for Pseudomonas aeruginosa, she was treated with a course of cefepime and discharged on a course of ciprofloxacin. She was also sent home on oxygen 3 L/min nasal cannula. She has no known pre-existing lung disease. Non-smoker. She returned to the emergency room 2 days ago complaining of generalized shaking, weakness, fatigue ongoing for the last 3 days. She does endorse exertional shortness of breath and an occasional cough with yellow phlegm. Denies fevers. Denies any hemoptysis. Denies any chest pain. She is currently sitting up in bed, 3 L/min nasal cannula. She is in no acute respiratory distress at rest. Chest x-ray on arrival shows hypoventilatory changes with patchy ground place changes persisting in the mid to lower lungs. There is concern for interstitial pneumonitis or atypical/COVID-pneumonia's. Negative for influenza, RSV, COVID. Procalcitonin level pending. NT proBNP was elevated. Patient was started on Lasix 40 mg twice daily. She has been urinating frequently. Echocardiogram done on previous admission shows a normal left ventricular ejection fraction estimated at 50 to 55%, severe pulmonary hypertension, moderate to severe tricuspid regurg itation, and a small pericardial effusion. She was taken to the Be[facility] Saw Operator yesterday, apparently she had a scheduled heart catheterization, she did receive a stent to the mid left circumflex. She has a right wrist TR band on. CBC on arrival unremarkable. No leukocytosis. BMP on arrival also unremarkable. Creatinine 0.9. Troponin less than 0.012. NT proBNP 2030. Afebrile. Vital signs are stable. Progress note dated August 08, 2023. 73-year-old female seen today in room 354. The patient is doing better. She is on 2 L of oxygen. Saturations are 95 to 96%. She is on Maxipime, which can be converted to Zithromax, 500 mg a day. Her procalcitonin level was elevated at 2.61. She is not receiving any IV fluids. The patient underwent a cardiac catheterization, and had a stent placed in her mid left circumflex coronary artery. Current labs include a white count 6.4, hemoglobin 10.4, hematocrit 32.2, and a normal platelet count. Sodium 136, potassium 3.4, chlorides 102, CO2 26, BUN 12, and creatinine 0.66. Glucose is 189. Albumin is 2.8. Chest x- ray shows atelectatic changes and chronic changes, in the lower lung davis. Objective - Vital Signs Vital signs: Vital Signs Temp 97.9 F 08/08/23 08:40 Pulse 82 08/08/23 08:40 Resp 16 08/08/23 08:40 BP 103/67 08/08/23 08:40 Pulse Ox 95 08/08/23 08:40 FiO2 Intake & Output 08/07/23 08/08/23 08/08/23 18:59 06:59 18:59 Intake Total 900 240 358 Balance 900 240 358 Weight 106.254 kg 116 kg Intake: Oral 900 240 358 Other: Voiding Method Bedside Commode Bedside Commode Bedside Commode # Voids 1 1 1 # Bowel Movements 1 - Exam No acute distress, oriented 3. No respiratory distress. Currently on 2 L. No conversational dyspnea. HEENT examination is grossly unremarkable. Mucous membranes are moist. No oral lesions. Neck supple. Full range of motion. No adenopathy thyromegaly or neck vein distention. Cardiovascular examination reveals regular rhythm rate. S1-S2 normal. No S3 or S4. No discernible murmur noted. Heart rate is 79 bpm. Lungs reveal mostly clear breath sounds. No wheezes or crackles. Minimal scattered rhonchi. 2 L saturation is 95 to 96%. Abdomen soft bowel sounds are heard. No masses or tenderness. Extremities are intact. No cyanosis clubbing or edema. Skin is without rash or lesion. Neurologic examination is brief but nonfocal. - Labs CBC & Chem 7: 08/08/23 09:32 08/08/23 09:32 Labs: Abnormal Lab Results - Last 24 Hours (Table) 08/07/23 08/07/23 08/07/23 Range/Units 07:38 11:44 16:45 RBC (3.80-5.40) m/uL Hgb (11.4-16.0) gm/dL Hct (34.0-46.0) % MCV (80.0-100.0) fL Sodium (137-145) mmol/L Potassium (3.5-5.1) mmol/L Glucose (74-99) mg/dL POC Glucose (mg/dL) 131 H 114 H (70-110) mg/dL Total Protein (6.3-8.2) g/dL Albumin (3.5-5.0) g/dL Procalcitonin 2.61 H (0.02-0.09) ng/mL 08/07/23 08/08/23 08/08/23 Range/Units 20:37 05:43 09:32 RBC 3.21 L (3.80-5.40) m/uL Hgb 10.4 L (11.4-16.0) gm/dL Hct 32.2 L (34.0-46.0) % MCV 100.4 H (80.0-100.0) fL Sodium (137-145) mmol/L Potassium (3.5-5.1) mmol/L Glucose (74-99) mg/dL POC Glucose (mg/dL) 147 H 135 H (70-110) mg/dL Total Protein (6.3-8.2) g/dL Albumin (3.5-5.0) g/dL Procalcitonin (0.02-0.09) ng/mL 08/08/23 Range/Units 09:32 RBC (3.80-5.40) m/uL Hgb (11.4-16.0) gm/dL Hct (34.0-46.0) % MCV (80.0-100.0) fL Sodium 136 L (137-145) mmol/L Potassium 3.4 L (3.5-5.1) mmol/L Glucose 189 H (74-99) mg/dL POC Glucose (mg/dL) (70-110) mg/dL Total Protein 5.7 L (6.3-8.2) g/dL Albumin 2.8 L (3.5-5.0) g/dL Procalcitonin (0.02-0.09) ng/mL Assessment and Plan Assessment: Coronary artery disease,S/P PCI/stent to the mid left circumflex done 08/06/2023. Chronic diastolic congestive heart failure. Severe pulmonary hypertension. Moderate to severe tricuspid regurgitation. Acute hypoxemic respiratory failure, likely multifactorial. Recent UTI, isolated organism Pseudomonas aeruginosa. History of kidney stones. Diabetes mellitus type 2. History of hyperlipidemia. History of DVT. History of pneumonia, secondary to Pseudomonas. Morbid obesity, with a BMI of 42.6 kg/m. Plan: Plan dated August 08, 2023. The patient is stable from the pulmonary standpoint. She is on 2 L of oxygen. Saturations are 95 to 96%. The patient's not receiving any IV fluids. Her procalcitonin level was elevated, 2.61. Chest x-ray shows some patchy infiltrates, which may be chronic, or may relate to atelectasis, or fluid overload. The patient's Maxipime, can be discontinued in favor of Zithromax 500 mg a day. The patient was previously infected with Pseudomonas, and was treated with Maxipime, and then ciprofloxacin as an outpatient. Cultures on this admission are negative. From the pulmonary standpoint, the patient is stable for discharge. Time with Patient: Less than 30
[2023-08-08 12:29] LABS: Glucose,Whole Blood 131 mg/dL (70-110)
[2023-08-08] MEDS ORDERED: Potassium Replacement Protocol 1 EACH MISC MISCELLANE PRN (12:46)
[2023-08-08] MEDS: POTASSIUM CHLORIDE ER 20 MEQ TAB.ER PO SCH (16:29)
[2023-08-08 16:41] LABS: Glucose,Whole Blood 136 mg/dL (70-110)
[2023-08-08 20:23] LABS: Glucose,Whole Blood 198 mg/dL (70-110)
[2023-08-08 21:22] LABS: % Iron Saturation 16.38 (12.00-45.00); Iron 38 UG/DL (50-170); Total Iron Binding Capacity 232 UG/DL (228-460)
[2023-08-08 21:48] LABS: Vitamin B12 <150.0 pg/mL (200.0-944.0)
[2023-08-09 06:07] LABS: Glucose,Whole Blood 136 mg/dL (70-110)
--- NOTE | 2023-08-09 07:57 | P.PN ---
Subjective Progress Note Date: 08/09/23 This is a 73-year-old female patient who presented with concerns of increased weakness and shakiness over the past 3 days patient recently had a prolonged hospitalization for CHF exacerbation as discharge to rehab. Patient was home for a week or 2 when symptoms started over the past few days. Patient denies fever but does report cough. Denies sick contacts. Patient had scheduled for cardiac catheterization on [address] Joseph outpatient. Patient has past medical history of diastolic heart failure, diabetes mellitus, DVT, osteoarthritis. Chest x-ray completed showing hypoventilatory changes but with patchy groundglass changes persist in the mid and lower lung or interstitial pneumonitis or atypical pneumonitis. EKG completed showing sinus rhythm. Troponin negative.. BNP 2030. White blood cell 6.9 in globin 11.4. Current vital signs temp 93, heart rate 93, respiratory rate 24, blood pressure 05/29/1955 with pulse ox 96% on 3 L. This time cardiology services have been consulted plans for cardiac catheterization inpatient. Due to patient's chest x-ray will consult pulmonary services in order influenza and COVID-19 test. This time patient is resting comfortably in bed. Patient's at bedside all questions answered. On 08/07/2023 patient was seen and examined on the medical floor she is alert and oriented 3 in no apparent distress she is complaining of generalized weakness, she is also complaining of cough and shortness of breath with any activity otherwise she denies any complaints there is no fever or chills no headache or dizziness no chest pain no nausea or vomiting no abdominal pain no diarrhea and no urinary symptoms, pro-calcitonin level was significantly elevated at 2.26 patient was started on IV cefepime, she was evaluated by cardiology and was cleared from cardiology standpoint, pulmonary are following. On 08/08/2023 patient's alert and oriented 3. Current vital signs temp 97.9, heart rate 82, respiratory rate 16, blood pressure 103/67 with pulse ox of 95% on 2 L. Patient remains on IV Maxipime cardiology services have cleared saeed ent. Patient denies chest pain. Patient denies nausea vomiting or diarrhea. Patient denies any urinary burning or frequency On 08/09/2023 patient was seen and examined she is alert and oriented 3 no distress, she is still complaining of cough and chest congestion, she is complaining of sores in her mouth, she is complaining of fatigue and generalized weakness otherwise she denies any complaints, there is no fever or chills no headache or dizziness no chest pain, no shortness of breath at rest she has some shortness of breath with activity, no nausea or vomiting no abdominal pain no diarrhea no blood in the stools no burning with urination no frequency or urgency and no hematuria. Patient has moderate to severe protein calorie malnutrition, she was started on ensure supplements, she also has significant anemia, with evidence of low iron level and severely low vitamin B12 level, she was started on iron and vitamin B12 supplements, will continue to follow. Objective - Vital Signs Vital signs: Vital Signs Temp 97.9 F 08/08/23 20:01 Pulse 65 08/09/23 04:00 Resp 16 08/09/23 04:00 BP 133/84 08/09/23 04:00 Pulse Ox 95 08/09/23 04:00 FiO2 Intake & Output 08/08/23 08/09/23 08/09/23 18:59 06:59 18:59 Intake Total 358 540 Balance 358 540 Intake: Oral 358 540 Other: Voiding Method Bedside Commode Bedside Commode # Voids 1 1 - Exam Head normocephalic Neck supple Lungs clear to auscultation bilaterally no wheezing or crackles Heart regular rate and rhythm S1-S2, no rub or gallop Abdomen is soft nontender nondistended positive bowel sounds no hepatosplenomegaly Extremities no edema Neuro alert and orientated to 3 - Labs CBC & Chem 7: 08/08/23 09:32 08/08/23 09:32 Labs: Abnormal Lab Results - Last 24 Hours (Table) 08/08/23 08/08/23 08/08/23 Range/Units 09:32 09:32 09:32 RBC 3.21 L (3.80-5.40) m/uL Hgb 10.4 L (11.4-16.0) gm/dL Hct 32.2 L (34.0-46.0) % MCV 100.4 H (80.0-100.0) fL Sodium 136 L (137-145) mmol/L Potassium 3.4 L (3.5-5.1) mmol/L Glucose 189 H (74-99) mg/dL POC Glucose (mg/dL) (70-110) mg/dL Iron 38 L (50-170) UG/DL Transferrin 166.0 L (204.0-354.0) mg/dL Total Protein 5.7 L (6.3-8.2) g/dL Albumin 2.8 L (3.5-5.0) g/dL Vitamin B12 <150.0 L (200.0-944.0) pg/mL 08/08/23 08/08/23 08/08/23 Range/Units 12:28 16:40 20:22 RBC (3.80-5.40) m/uL Hgb (11.4-16.0) gm/dL Hct (34.0-46.0) % MCV (80.0-100.0) fL Sodium (137-145) mmol/L Potassium (3.5-5.1) mmol/L Glucose (74-99) mg/dL POC Glucose (mg/dL) 131 H 136 H 198 H (70-110) mg/dL Iron (50-170) UG/DL Transferrin (204.0-354.0) mg/dL Total Protein (6.3-8.2) g/dL Albumin (3.5-5.0) g/dL Vitamin B12 (200.0-944.0) pg/mL 08/09/23 Range/Units 06:06 RBC (3.80-5.40) m/uL Hgb (11.4-16.0) gm/dL Hct (34.0-46.0) % MCV (80.0-100.0) fL Sodium (137-145) mmol/L Potassium (3.5-5.1) mmol/L Glucose (74-99) mg/dL POC Glucose (mg/dL) 136 H (70-110) mg/dL Iron (50-170) UG/DL Transferrin (204.0-354.0) mg/dL Total Protein (6.3-8.2) g/dL Albumin (3.5-5.0) g/dL Vitamin B12 (200.0-944.0) pg/mL Assessment and Plan Assessment: 1. Generalized weakness and cough. COVID-19 and influenza ordered 2. Chronic diastolic congestive heart failure 3. History of pulmonary hypertension 4. Moderate severe coronary calcification seen on CT. Cardiac catheterization scheduled per cardiology 5. History of essential hypertension 6. History of hyperlipidemia 7. History of diabetes mellitus 8. History of macular degeneration 9. History of DVT At this time patient will be admitted Cardiology and pulmonary service is consulted Influenza and COVID-19 ordered Repeat labs ordered Cardiac catheterization scheduled for 08/06/2023
[2023-08-09] MEDS: SODIUM FERRIC GLUCONAT-SUCROSE 125 MG in SODIUM CHLORIDE 0.9% 100 ML IVPB ONE (08:29)
[2023-08-09] MEDS: CYANOCOBALAMIN 500 MCG TAB PO SCH (08:29)
[2023-08-09] MEDS: NYSTATIN 100,000 UNIT/ML SUSP 500,000 UNIT/5 ML CUP PO SCH (08:30)
[2023-08-09 09:18] LABS: HCT 35.5 % (34.0-46.0); HGB 11.2 gm/dL (11.4-16.0); Hypochromasia Moderate; MCHC 31.6 g/dL (31.0-37.0); MCV 101.3 fL (80.0-100.0); Macrocytosis Slight; Mean Platelet Volume 9.2; Platelet Count 222 k/uL (150-450); Poikilocytosis Slight; RBC 3.51 m/uL (3.80-5.40); RDW 15.1 % (11.5-15.5); WBC 6.6 k/uL (3.8-10.6)
[2023-08-09 09:41] LABS: ALT 21 U/L (4-34); AST 29 U/L (14-36); African American GFR (CKD) >90 (>60 ml/min/1.73 sqM); Alkaline Phosphatase 122 U/L (38-126); Anion Gap 9 mmol/L; Blood Urea Nitrogen 12 mg/dL (7-17); Calcium 8.7 mg/dL (8.4-10.2); Carbon Dioxide 26 mmol/L (22-30); Chloride 103 mmol/L (98-107); Glucose 147 mg/dL (74-99); Non-African American GFR(CKD) 88 (>60 ml/min/1.73 sqM); Potassium 3.9 mmol/L (3.5-5.1); Sodium 138 mmol/L (137-145); Total Bilirubin 0.8 mg/dL (0.2-1.3); Total Protein 6.1 g/dL (6.3-8.2)
[2023-08-09 10:09] LABS: Band Neutrophils % 1 %; Eosinophils # (M) 0.53 k/uL (0-0.7); Lymphocytes # (M) 1.39 k/uL (1.0-4.8); Metamyelocytes # (M) 0.07 k/uL (0); Metamyelocytes % 1 %; Myelocytes # (M) 0.13 k/uL (0); Myelocytes % 2 %; Neutrophils % (M) 63 %; Nucleated Red Blood Cells 0 /100 WBC (0-0); Polychromasia Present; Total Cells Counted 200
--- NOTE | 2023-08-09 11:20 | P.PN ---
Subjective Progress Note Date: 08/09/23 Principal diagnosis: Status post stent placement. Patient is a 73-year-old white female with past medically significant for diabetes mellitus, DVT, obesity, pneumonia. Her primary care provider is Dr. Angulo. Patient had a recent extended hospitalization 04/24/2023 through mostly for exacerbation of diastolic heart failure, She also did have positive sputum and urine cultures for Pseudomonas aeruginosa, she was treated with a course of cefepime and discharged on a course of ciprofloxacin. She was also sent home on oxygen 3 L/min nasal cannula. She has no known pre-existing lung disease. Non-smoker. She returned to the emergency room 2 days ago complaining of generalized shaking, weakness, fatigue ongoing for the last 3 days. She does endorse exertional shortness of breath and an occasional cough with yellow phlegm. Denies fevers. Denies any hemoptysis. Denies any chest pain. She is currently sitting up in bed, 3 L/min nasal cannula. She is in no acute respiratory distress at rest. Chest x-ray on arrival shows hypoventilatory changes with patchy ground place changes persisting in the mid to lower lungs. There is concern for interstitial pneumonitis or atypical/COVID-pneumonia's. Negative for influenza, RSV, COVID. Procalcitonin level pending. NT proBNP was elevated. Patient was started on Lasix 40 mg twice daily. She has been urinating frequently. Echocardiogram done on previous admission shows a normal left ventricular ejection fraction estimated at 50 to 55%, severe pulmonary hypertension, moderate to severe tricuspid regurg itation, and a small pericardial effusion. She was taken to the [facility]iance Project [facility] yesterday, apparently she had a scheduled heart catheterization, she did receive a stent to the mid left circumflex. She has a right wrist TR band on. CBC on arrival unremarkable. No leukocytosis. BMP on arrival also unremarkable. Creatinine 0.9. Troponin less than 0.012. NT proBNP 2030. Afebrile. Vital signs are stable. Progress note dated August 08, 2023. 73-year-old female seen today in room 354. The patient is doing better. She is on 2 L of oxygen. Saturations are 95 to 96%. She is on Maxipime, which can be converted to Zithromax, 500 mg a day. Her procalcitonin level was elevated at 2.61. She is not receiving any IV fluids. The patient underwent a cardiac catheterization, and had a stent placed in her mid left circumflex coronary artery. Current labs include a white count 6.4, hemoglobin 10.4, hematocrit 32.2, and a normal platelet count. Sodium 136, potassium 3.4, chlorides 102, CO2 26, BUN 12, and creatinine 0.66. Glucose is 189. Albumin is 2.8. Chest x- ray shows atelectatic changes and chronic changes, in the lower lung davis. Progress note dated August 09, 2023. 73-year-old female seen today in room 354. Currently, the patient is on 3 L of oxygen. She remains on cefepime. Procalcitonin level was 2.61. The patient is not receiving any IV fluids. She apparently was ready for discharge, but apparently refused discharge, and appeal with Medicare about her discharge date. We have not heard anything more about that. Current laboratory data includes a white count of 6.6, hemoglobin 11.2, hematocrit 35.5, and a platelet count of 222,000. Sodium 138, potassium 3.9, chlorides 103, CO2 26, BUN 12, creatinine 0.67. Glucose is 147. Total protein is 6.1. Albumin is 3.0. Chest x-ray shows primarily atelectatic changes. Objective - Vital Signs Vital signs: Vital Signs Temp 97.6 F 08/09/23 08:00 Pulse 78 08/09/23 08:00 Resp 17 08/09/23 08:00 BP 117/56 08/09/23 08:00 Pulse Ox 97 08/09/23 08:00 FiO2 Intake & Output 08/08/23 08/09/23 08/09/23 18:59 06:59 18:59 Intake Total 358 540 Balance 358 540 Intake: Oral 358 540 Other: Voiding Method Bedside Commode Bedside Commode # Voids 1 1 - Exam No acute distress, oriented 3. No respiratory distress. Currently on 3 L. No conversational dyspnea. HEENT examination is grossly unremarkable. Mucous membranes are moist. No oral lesions. Neck supple. Full range of motion. No adenopathy thyromegaly or neck vein distention. Cardiovascular examination reveals regular rhythm rate. S1-S2 normal. No S3 or S4. No discernible murmur noted. Heart rate is 78 bpm. Lungs reveal mostly clear breath sounds. No wheezes or crackles. Minimal scattered rhonchi. 3 L saturation is 97% Abdomen soft bowel sounds are heard. No masses or tenderness. Extremities are intact. No cyanosis clubbing or edema. Skin is without rash or lesion. Neurologic examination is brief but nonfocal. - Labs CBC & Chem 7: 08/09/23 07:31 08/09/23 07:31 Labs: Abnormal Lab Results - Last 24 Hours (Table) 08/08/23 08/08/23 08/08/23 Range/Units 09:32 12:28 16:40 RBC (3.80-5.40) m/uL Hgb (11.4-16.0) gm/dL MCV (80.0-100.0) fL Metamyelocytes # (Man) (0) k/uL Myelocytes # (Manual) (0) k/uL Glucose (74-99) mg/dL POC Glucose (mg/dL) 131 H 136 H (70-110) mg/dL Iron 38 L (50-170) UG/DL Transferrin 166.0 L (204.0-354.0) mg/dL Total Protein (6.3-8.2) g/dL Albumin (3.5-5.0) g/dL Vitamin B12 <150.0 L (200.0-944.0) pg/mL 08/08/23 08/09/23 08/09/23 Range/Units 20:22 06:06 07:31 RBC 3.51 L (3.80-5.40) m/uL Hgb 11.2 L (11.4-16.0) gm/dL MCV 101.3 H (80.0-100.0) fL Metamyelocytes # (Man) 0.07 H (0) k/uL Myelocytes # (Manual) 0.13 H (0) k/uL Glucose (74-99) mg/dL POC Glucose (mg/dL) 198 H 136 H (70-110) mg/dL Iron (50-170) UG/DL Transferrin (204.0-354.0) mg/dL Total Protein (6.3-8.2) g/dL Albumin (3.5-5.0) g/dL Vitamin B12 (200.0-944.0) pg/mL 08/09/23 Range/Units 07:31 RBC (3.80-5.40) m/uL Hgb (11.4-16.0) gm/dL MCV (80.0-100.0) fL Metamyelocytes # (Man) (0) k/uL Myelocytes # (Manual) (0) k/uL Glucose 147 H (74-99) mg/dL POC Glucose (mg/dL) (70-110) mg/dL Iron (50-170) UG/DL Transferrin (204.0-354.0) mg/dL Total Protein 6.1 L (6.3-8.2) g/dL Albumin 3.0 L (3.5-5.0) g/dL Vitamin B12 (200.0-944.0) pg/mL Assessment and Plan Assessment: Coronary artery disease,S/P PCI/stent to the mid left circumflex done 08/06/2023. Chronic diastolic congestive heart failure. Severe pulmonary hypertension. Moderate to severe tricuspid regurgitation. Acute hypoxemic respiratory failure, likely multifactorial. Recent UTI, isolated organism Pseudomonas aeruginosa. History of kidney stones. Diabetes mellitus type 2. History of hyperlipidemia. History of DVT. History of pneumonia, secondary to Pseudomonas. Morbid obesity, with a BMI of 42.6 kg/m. Plan: Plan dated August 08, 2023. The patient is stable from the pulmonary standpoint. She is on 2 L of oxygen. Saturations are 95 to 96%. The patient's not receiving any IV fluids. Her pro calcitonin level was elevated, 2.61. Chest x-ray shows some patchy infiltrates, which may be chronic, or may relate to atelectasis, or fluid overload. The patient's Maxipime, can be discontinued in favor of Zithromax 500 mg a day. The patient was previously infected with Pseudomonas, and was treated with Maxipime, and then ciprofloxacin as an outpatient. Cultures on this admission are negative. From the pulmonary standpoint, the patient is stable for discharge. Plan dated August 09, 2023. The patient is stable from the pulmonary standpoint. She remains on oxygen between 2 to 3 L. Saturations are excellent. The patient continues on cefepime as per the primary service. Labs, x-rays, medications are reviewed. The patient has a previous history of Pseudomonas infection. Clinically, the patient is stable, and could be considered for possible discharge. Will leave that up to the primary service. Labs, x-rays, and medications are all reviewed. Prognosis is thought to be generally good. Time with Patient: Less than 30
[2023-08-09 11:55] LABS: Glucose,Whole Blood 138 mg/dL (70-110)
[2023-08-09 16:56] LABS: Glucose,Whole Blood 139 mg/dL (70-110)
[2023-08-09 20:21] LABS: Glucose,Whole Blood 162 mg/dL (70-110)
[2023-08-10 06:15] LABS: Glucose,Whole Blood 130 mg/dL (70-110)
--- NOTE | 2023-08-10 08:36 | P.PN ---
Subjective Progress Note Date: 08/10/23 This is a 73-year-old female patient who presented with concerns of increased weakness and shakiness over the past 3 days patient recently had a prolonged hospitalization for CHF exacerbation as discharge to rehab. Patient was home for a week or 2 when symptoms started over the past few days. Patient denies fever but does report cough. Denies sick contacts. Patient had scheduled for cardiac catheterization on [address] Joseph outpatient. Patient has past medical history of diastolic heart failure, diabetes mellitus, DVT, osteoarthritis. Chest x-ray completed showing hypoventilatory changes but with patchy groundglass changes persist in the mid and lower lung or interstitial pneumonitis or atypical pneumonitis. EKG completed showing sinus rhythm. Troponin negative.. BNP 2030. White blood cell 6.9 in globin 11.4. Current vital signs temp 93, heart rate 93, respiratory rate 24, blood pressure 05/29/1955 with pulse ox 96% on 3 L. This time cardiology services have been consulted plans for cardiac catheterization inpatient. Due to patient's chest x-ray will consult pulmonary services in order influenza and COVID-19 test. This time patient is resting comfortably in bed. Patient's at bedside all questions answered. On 08/07/2023 patient was seen and examined on the medical floor she is alert and oriented 3 in no apparent distress she is complaining of generalized weakness, she is also complaining of cough and shortness of breath with any activity otherwise she denies any complaints there is no fever or chills no headache or dizziness no chest pain no nausea or vomiting no abdominal pain no diarrhea and no urinary symptoms, pro-calcitonin level was significantly elevated at 2.26 patient was started on IV cefepime, she was evaluated by cardiology and was cleared from cardiology standpoint, pulmonary are following. On 08/08/2023 patient's alert and oriented 3. Current vital signs temp 97.9, heart rate 82, respiratory rate 16, blood pressure 103/67 with pulse ox of 95% on 2 L. Patient remains on IV Maxipime cardiology services have cleared saeed ent. Patient denies chest pain. Patient denies nausea vomiting or diarrhea. Patient denies any urinary burning or frequency On 08/09/2023 patient was seen and examined she is alert and oriented 3 no distress, she is still complaining of cough and chest congestion, she is complaining of sores in her mouth, she is complaining of fatigue and generalized weakness otherwise she denies any complaints, there is no fever or chills no headache or dizziness no chest pain, no shortness of breath at rest she has some shortness of breath with activity, no nausea or vomiting no abdominal pain no diarrhea no blood in the stools no burning with urination no frequency or urgency and no hematuria. Patient has moderate to severe protein calorie malnutrition, she was started on ensure supplements, she also has significant anemia, with evidence of low iron level and severely low vitamin B12 level, she was started on iron and vitamin B12 supplements, will continue to follow. On 08/10/2023 patient was seen and examined on the medical floor she is alert and oriented 3 in no apparent distress she is complaining of generalized weakness and shortness of breath otherwise she denies any complaints there is no fever or chills no headache or dizziness no chest pain no shortness of breath no cough no nausea or vomiting no abdominal pain no diarrhea and no urinary symptoms. Objective - Vital Signs Vital signs: Vital Signs Temp 97.9 F 08/09/23 20:00 Pulse 74 08/10/23 04:00 Resp 17 08/10/23 04:00 BP 112/75 08/10/23 04:00 Pulse Ox 92 L 08/10/23 04:00 FiO2 Intake & Output 08/09/23 08/10/23 08/10/23 18:59 06:59 18:59 Intake Total 1194 540 Balance 1194 540 Intake: Oral 1194 540 Other: Voiding Method Bedside Commode # Voids 2 1 # Bowel Movements 1 - Exam Head normocephalic Neck supple Lungs clear to auscultation bilaterally no wheezing or crackles Heart regular rate and rhythm S1-S2, no rub or gallop Abdomen is soft nontender nondistended positive bowel sounds no hepatosplenomegaly Extremities no edema Neuro alert and orientated to 3 - Labs CBC & Chem 7: 08/09/23 07:31 08/09/23 07:31 Labs: Abnormal Lab Results - Last 24 Hours (Table) 08/09/23 08/09/23 08/09/23 Range/Units 07:31 07:31 11:53 RBC 3.51 L (3.80-5.40) m/uL Hgb 11.2 L (11.4-16.0) gm/dL MCV 101.3 H (80.0-100.0) fL Metamyelocytes # (Man) 0.07 H (0) k/uL Myelocytes # (Manual) 0.13 H (0) k/uL Glucose 147 H (74-99) mg/dL POC Glucose (mg/dL) 138 H (70-110) mg/dL Total Protein 6.1 L (6.3-8.2) g/dL Albumin 3.0 L (3.5-5.0) g/dL 08/09/23 08/09/23 08/10/23 Range/Units 16:49 20:19 06:13 RBC (3.80-5.40) m/uL Hgb (11.4-16.0) gm/dL MCV (80.0-100.0) fL Metamyelocytes # (Man) (0) k/uL Myelocytes # (Manual) (0) k/uL Glucose (74-99) mg/dL POC Glucose (mg/dL) 139 H 162 H 130 H (70-110) mg/dL Total Protein (6.3-8.2) g/dL Albumin (3.5-5.0) g/dL Assessment and Plan Assessment: 1. Generalized weakness and cough. COVID-19 and influenza ordered 2. Chronic diastolic congestive heart failure 3. History of pulmonary hypertension 4. Moderate severe coronary calcification seen on CT. Cardiac catheterization scheduled per cardiology 5. History of essential hypertension 6. History of hyperlipidemia 7. History of diabetes mellitus 8. History of macular degeneration 9. History of DVT 10. Anemia, with evidence of low iron and low vitamin B12 11. Moderate to severe protein calorie malnutrition At this time patient will be admitted Cardiology and pulmonary service is consulted Influenza and COVID-19 ordered Repeat labs ordered Cardiac catheterization scheduled for 08/06/2023
[2023-08-10 08:37] LABS: Basophils % (A) 1 %; Eosinophils # (A) 0.6 k/uL (0-0.7); Eosinophils % (A) 8 %; HGB 9.9 gm/dL (11.4-16.0); Hypochromasia Slight; Lymphocytes # (A) 1.3 k/uL (1.0-4.8); Lymphocytes % (A) 17 %; MCH 32.3 pg (25.0-35.0); MCV 100.7 fL (80.0-100.0); Macrocytosis Slight; Mean Platelet Volume 8.7; Monocytes # (A) 0.6 k/uL (0-1.0); Monocytes % (A) 8 %; Neutrophils # (A) 5.2 k/uL (1.3-7.7); Neutrophils % (A) 67 %; Platelet Count 237 k/uL (150-450); Poikilocytosis Slight; RBC 3.07 m/uL (3.80-5.40); WBC 7.9 k/uL (3.8-10.6)
[2023-08-10 09:20] LABS: ALT 18 U/L (4-34); AST 22 U/L (14-36); African American GFR (CKD) >90 (>60 ml/min/1.73 sqM); Albumin 2.7 g/dL (3.5-5.0); Alkaline Phosphatase 113 U/L (38-126); Anion Gap 7 mmol/L; Blood Urea Nitrogen 16 mg/dL (7-17); Calcium 8.4 mg/dL (8.4-10.2); Carbon Dioxide 24 mmol/L (22-30); Chloride 105 mmol/L (98-107); Glucose 114 mg/dL (74-99); Non-African American GFR(CKD) 90 (>60 ml/min/1.73 sqM); Potassium 3.8 mmol/L (3.5-5.1); Sodium 136 mmol/L (137-145); Total Bilirubin 0.6 mg/dL (0.2-1.3); Total Protein 5.6 g/dL (6.3-8.2)
--- NOTE | 2023-08-10 09:58 | P.PN ---
Subjective Progress Note Date: 08/10/23 Principal diagnosis: Status post stent placement. Patient is a 73-year-old white female with past medically significant for diabetes mellitus, DVT, obesity, pneumonia. Her primary care provider is Dr. Angulo. Patient had a recent extended hospitalization 04/24/2023 through mostly for exacerbation of diastolic heart failure, She also did have positive sputum and urine cultures for Pseudomonas aeruginosa, she was treated with a course of cefepime and discharged on a course of ciprofloxacin. She was also sent home on oxygen 3 L/min nasal cannula. She has no known pre-existing lung disease. Non-smoker. She returned to the emergency room 2 days ago complaining of generalized shaking, weakness, fatigue ongoing for the last 3 days. She does endorse exertional shortness of breath and an occasional cough with yellow phlegm. Denies fevers. Denies any hemoptysis. Denies any chest pain. She is currently sitting up in bed, 3 L/min nasal cannula. She is in no acute respiratory distress at rest. Chest x-ray on arrival shows hypoventilatory changes with patchy ground place changes persisting in the mid to lower lungs. There is concern for interstitial pneumonitis or atypical/COVID-pneumonia's. Negative for influenza, RSV, COVID. Procalcitonin level pending. NT proBNP was elevated. Patient was started on Lasix 40 mg twice daily. She has been urinating frequently. Echocardiogram done on previous admission shows a normal left ventricular ejection fraction estimated at 50 to 55%, severe pulmonary hypertension, moderate to severe tricuspid regurg itation, and a small pericardial effusion. She was taken to the [facility] yesterday, apparently she had a scheduled heart catheterization, she did receive a stent to the mid left circumflex. She has a right wrist TR band on. CBC on arrival unremarkable. No leukocytosis. BMP on arrival also unremarkable. Creatinine 0.9. Troponin less than 0.012. NT proBNP 2030. Afebrile. Vital signs are stable. Progress note dated August 08, 2023. 73-year-old female seen today in room 354. The patient is doing better. She is on 2 L of oxygen. Saturations are 95 to 96%. She is on Maxipime, which can be converted to Zithromax, 500 mg a day. Her procalcitonin level was elevated at 2.61. She is not receiving any IV fluids. The patient underwent a cardiac catheterization, and had a stent placed in her mid left circumflex coronary artery. Current labs include a white count 6.4, hemoglobin 10.4, hematocrit 32.2, and a normal platelet count. Sodium 136, potassium 3.4, chlorides 102, CO2 26, BUN 12, and creatinine 0.66. Glucose is 189. Albumin is 2.8. Chest x- ray shows atelectatic changes and chronic changes, in the lower lung davis. Progress note dated August 09, 2023. 73-year-old female seen today in room 354. Currently, the patient is on 3 L of oxygen. She remains on cefepime. Procalcitonin level was 2.61. The patient is not receiving any IV fluids. She apparently was ready for discharge, but apparently refused discharge, and appeal with Medicare about her discharge date. We have not heard anything more about that. Current laboratory data includes a white count of 6.6, hemoglobin 11.2, hematocrit 35.5, and a platelet count of 222,000. Sodium 138, potassium 3.9, chlorides 103, CO2 26, BUN 12, creatinine 0.67. Glucose is 147. Total protein is 6.1. Albumin is 3.0. Chest x-ray shows primarily atelectatic changes. Progress note dated August 10, 2023. 73-year-old female seen today in room 354. The patient continues on oxygen at 3 L. She also continues on cefepime. She complains of generalized weakness today, and some shortness of breath. Laboratory data today includes a white count 7.9, hemoglobin 9.9, hematocrit 31, and a platelet count of 237,000. S odium 136, potassium 3.8, chlorides 105, CO2 24, BUN 16, creatinine 0.62. Glucose is 114. Albumin is 2.7. No chest x-ray today. Objective - Vital Signs Vital signs: Vital Signs Temp 98.1 F 08/10/23 08:00 Pulse 88 08/10/23 08:00 Resp 20 08/10/23 08:00 BP 145/73 08/10/23 08:00 Pulse Ox 95 08/10/23 08:00 FiO2 Intake & Output 08/09/23 08/10/23 08/10/23 18:59 06:59 18:59 Intake Total 1194 540 Balance 1194 540 Weight 115.711 kg Intake: Oral 1194 540 Other: Voiding Method Bedside Commode # Voids 2 1 # Bowel Movements 1 - Exam No acute distress, oriented 3. No respiratory distress. Currently on 3 L. No conversational dyspnea. HEENT examination is grossly unremarkable. Mucous membranes are moist. No oral lesions. Neck supple. Full range of motion. No adenopathy thyromegaly or neck vein dis tention. Cardiovascular examination reveals regular rhythm rate. S1-S2 normal. No S3 or S4. No discernible murmur noted. Heart rate is 88 bpm. Lungs reveal mostly clear breath sounds. No wheezes or crackles. Minimal scattered rhonchi. 3 L saturation is 95 % Abdomen soft bowel sounds are heard. No masses or tenderness. Extremities are intact. No cyanosis clubbing or edema. Skin is without rash or lesion. Neurologic examination is brief but nonfocal. - Labs CBC & Chem 7: 08/10/23 06:49 08/10/23 06:49 Labs: Abnormal Lab Results - Last 24 Hours (Table) 08/09/23 08/09/23 08/09/23 Range/Units 07:31 11:53 16:49 RBC (3.80-5.40) m/uL Hgb (11.4-16.0) gm/dL Hct (34.0-46.0) % MCV (80.0-100.0) fL Metamyelocytes # (Man) 0.07 H (0) k/uL Myelocytes # (Manual) 0.13 H (0) k/uL Sodium (137-145) mmol/L Glucose (74-99) mg/dL POC Glucose (mg/dL) 138 H 139 H (70-110) mg/dL Total Protein (6.3-8.2) g/dL Albumin (3.5-5.0) g/dL 08/09/23 08/10/23 08/10/23 Range/Units 20:19 06:13 06:49 RBC 3.07 L (3.80-5.40) m/uL Hgb 9.9 L (11.4-16.0) gm/dL Hct 31.0 L (34.0-46.0) % MCV 100.7 H (80.0-100.0) fL Metamyelocytes # (Man) (0) k/uL Myelocytes # (Manual) (0) k/uL Sodium (137-145) mmol/L Glucose (74-99) mg/dL POC Glucose (mg/dL) 162 H 130 H (70-110) mg/dL Total Protein (6.3-8.2) g/dL Albumin (3.5-5.0) g/dL 08/10/23 Range/Units 06:49 RBC (3.80-5.40) m/uL Hgb (11.4-16.0) gm/dL Hct (34.0-46.0) % MCV (80.0-100.0) fL Metamyelocytes # (Man) (0) k/uL Myelocytes # (Manual) (0) k/uL Sodium 136 L (137-145) mmol/L Glucose 114 H (74-99) mg/dL POC Glucose (mg/dL) (70-110) mg/dL Total Protein 5.6 L (6.3-8.2) g/dL Albumin 2.7 L (3.5-5.0) g/dL Assessment and Plan Assessment: Coronary artery disease, S/P PCI/stent to the mid left circumflex done 08/06/2023. Chronic diastolic congestive heart failure. Severe pulmonary hypertension. Moderate to severe tricuspid regurgitation. Acute hypoxemic respiratory failure, likely multifactorial. Recent UTI, isolated organism Pseudomonas aeruginosa. History of kidney stones. Diabetes mellitus type 2. History of hyperlipidemia. History of DVT. History of pneumonia, secondary to Pseudomonas. Morbid obesity, with a BMI of 42.6 kg/m. Plan: Plan dated August 08, 2023. The patient is stable from the pulmonary standpoint. She is on 2 L of oxygen. Saturations are 95 to 96%. The patient's not receiving any IV fluids. Her procalcitonin level was elevated, 2.61. Chest x-ray shows some patchy infiltrates, which may be chronic, or may relate to atelectasis, or fluid overload. The patient's Maxipime, can be discontinued in favor of Zithromax 500 mg a day. The patient was previously infected with Pseudomonas, and was treated with Maxipime, and then ciprofloxacin as an outpatient. Cultures on this admission are negative. From the pulmonary standpoint, the patient is stable for discharge. Plan dated August 09, 2023. The patient is stable from the pulmonary standpoint. She remains on oxygen between 2 to 3 L. Saturations are excellent. The patient continues on cefepime as per the primary service. Labs, x-rays, medications are reviewed. The patient has a previous history of Pseudomonas infection. Clinically, the patient is stable, and could be considered for possible discharge. Will leave that up to the primary service. Labs, x-rays, and medications are all reviewed. Prognosis is thought to be generally good. Plan dated August 10, 2023. The patient appears stable from the pulmonary standpoint. Saturations are in the mid to high 90s on 3 L of oxygen. Her biggest complaint is some generalized weakness. The patient continues on cefepime. Labs, x-rays, and medications are reviewed. We thought the patient was able to be discharged on Friday. She apparently appealed the discharge, and is currently still in the hospital. Labs, x-rays, and medications are all reviewed. The patient's overall prognosis remains good. We will continue to follow the patient, and make recommendations. Time with Patient: Less than 30
[2023-08-10 11:22] LABS: Glucose,Whole Blood 129 mg/dL (70-110)
[2023-08-10 16:43] LABS: Glucose,Whole Blood 161 mg/dL (70-110)
[2023-08-10 19:47] LABS: Glucose,Whole Blood 276 mg/dL (70-110)
[2023-08-10] MEDS: INSULIN ASPART (NovoLOG) 100 UNIT/ML VIAL SQ SCH (20:15)
[2023-08-11 05:58] LABS: Glucose,Whole Blood 133 mg/dL (70-110)
[2023-08-11 08:03] LABS: Basophils # (A) 0.1 k/uL (0-0.2); Basophils % (A) 1 %; Eosinophils # (A) 0.6 k/uL (0-0.7); Eosinophils % (A) 7 %; HCT 31.9 % (34.0-46.0); HGB 10.3 gm/dL (11.4-16.0); Hypochromasia Slight; Lymphocytes # (A) 1.3 k/uL (1.0-4.8); Lymphocytes % (A) 15 %; MCH 32.3 pg (25.0-35.0); MCHC 32.3 g/dL (31.0-37.0); MCV 99.8 fL (80.0-100.0); Macrocytosis Slight; Mean Platelet Volume 9.1; Monocytes # (A) 0.6 k/uL (0-1.0); Monocytes % (A) 7 %; Neutrophils # (A) 6.2 k/uL (1.3-7.7); Neutrophils % (A) 69 %; Platelet Count 258 k/uL (150-450); Poikilocytosis Slight; RDW 15.2 % (11.5-15.5)
[2023-08-11 08:27] LABS: ALT 17 U/L (4-34); AST 22 U/L (14-36); African American GFR (CKD) >90 (>60 ml/min/1.73 sqM); Albumin 2.8 g/dL (3.5-5.0); Alkaline Phosphatase 118 U/L (38-126); Anion Gap 8 mmol/L; Blood Urea Nitrogen 16 mg/dL (7-17); Calcium 8.6 mg/dL (8.4-10.2); Carbon Dioxide 23 mmol/L (22-30); Chloride 105 mmol/L (98-107); Glucose 126 mg/dL (74-99); Non-African American GFR(CKD) 89 (>60 ml/min/1.73 sqM); Potassium 3.9 mmol/L (3.5-5.1); Sodium 136 mmol/L (137-145); Total Bilirubin 0.5 mg/dL (0.2-1.3); Total Protein 5.8 g/dL (6.3-8.2)
[2023-08-11 11:29] LABS: Glucose,Whole Blood 172 mg/dL (70-110)
--- NOTE | 2023-08-11 13:03 | P.PN ---
Subjective Progress Note Date: 08/11/23 On today's evaluation of 08/11/2023, the patient is being seen for a follow-up. This patient is 73-year-old white female patient with known history of diabetes mellitus, and she is morbidly obese with a BMI of 42. She has had previous infections with Pseudomonas and a previous serum sample that was positive for Pseudomonas aeruginosa and the patient was treated for that back in April 2023. She came in with generalized weakness and fatigue and shortness of breath and worsening cough and congestion. The patient has a preserved LV function on echocardiogram with an EF of around 50 to 55%. Nevertheless she has severe pulmonary hypertension and moderate severe tricuspid regurgitation. During course current admission, the blood work was unremarkable and the patient's proBNP level was in the 2000 range. She also has coronary artery disease and she has a stent placed in her mid circumflex coronary artery. At this point in time, the patient is being treated with bronchodilators and she is also on IV cefepime based on her previous microbiology. No recent sputum samples are available. The chest x-ray that was done on 08/07/2023 showed smaller lung volumes and some interstitial densities in the mid and lower lung davis bilaterally. The viral serology/screen that was done during this current admission was negative. She is currently on oxygen at 3 L/min nasal cannula with a pulse ox of 94%. Objective - Vital Signs Vital signs: Vital Signs Temp 97.6 F 08/11/23 04:00 Pulse 85 08/11/23 04:00 Resp 16 08/11/23 04:00 BP 138/63 08/11/23 04:00 Pulse Ox 94 L 08/11/23 04:00 FiO2 Intake & Output 08/10/23 08/11/23 08/11/23 18:59 06:59 18:59 Intake Total 898 354 Balance 898 354 Weight 115.7 kg Intake: Oral 898 354 Other: Voiding Method Bedside Commode # Voids 3 - Exam No acute distress, oriented 3. No respiratory distress. Currently on 3 L. Morbidly obese with a BMI of 42 HEENT examination is grossly unremarkable. Mucous membranes are moist. No oral lesions. Neck supple. Full range of motion. No adenopathy thyromegaly or neck vein distention. Cardiovascular examination reveals regular rhythm rate. S1-S2 normal. No S3 or S4. No discernible murmur noted. Lungs reveal mostly clear breath sounds. No wheezes or crackles. Minimal scattered rhonchi. Abdomen soft bowel sounds are heard. No masses or tenderness. Extremities are intact. No cyanosis clubbing or edema. Skin is without rash or lesion. Neurologic examination is brief but nonfocal. - Labs CBC & Chem 7: 08/11/23 06:53 08/11/23 06:53 Labs: Abnormal Lab Results - Last 24 Hours (Table) 08/10/23 08/10/23 08/10/23 Range/Units 11:20 16:41 19:45 RBC (3.80-5.40) m/uL Hgb (11.4-16.0) gm/dL Hct (34.0-46.0) % Sodium (137-145) mmol/L Glucose (74-99) mg/dL POC Glucose (mg/dL) 129 H 161 H 276 H (70-110) mg/dL Total Protein (6.3-8.2) g/dL Albumin (3.5-5.0) g/dL 08/11/23 08/11/23 08/11/23 Range/Units 05:57 06:53 06:53 RBC 3.20 L (3.80-5.40) m/uL Hgb 10.3 L (11.4-16.0) gm/dL Hct 31.9 L (34.0-46.0) % Sodium 136 L (137-145) mmol/L Glucose 126 H (74-99) mg/dL POC Glucose (mg/dL) 133 H (70-110) mg/dL Total Protein 5.8 L (6.3-8.2) g/dL Albumin 2.8 L (3.5-5.0) g/dL Assessment and Plan Plan: Shortness of breath, multifactorial. Pneumonia is felt to be less likely at this point in time. Based on previous microbiology, the patient is currently on IV cefepime covering pseudomonal infection/pneumonia. Coronary artery disease, S/P PCI/stent to the mid left circumflex done 2023. Chronic diastolic congestive heart failure. Patient has preserved LV function with secondary pulm hypertension. Severe pulmonary hypertension. Moderate to severe tricuspid regurgitation. Acute hypoxemic respiratory failure, likely multifactorial. Patient is currently on 3 L O2 nasal cannula Previous UTI, isolated organism Pseudomonas aeruginosa. History of kidney stones. Diabetes mellitus type 2. History of hyperlipidemia. History of DVT. History of pneumonia, secondary to Pseudomonas. Morbid obesity, with a BMI of 42.6 kg/m. Plan: Wean FiO2 as tolerated to maintain saturation above 90% Try to obtain a sputum Gram stain and culture Repeat chest x-ray in the morning Continue DuoNeb updrajohn [id number] Continue aspirin 81 mg p.o. daily in combination with Plavix Continue metoprolol 25 mg twice a day Lasix 40 mg p.o. twice a day Statins in the form of Lipitor 20 mg p.o. daily Incentive spirometer Increase mobility Will follow
[2023-08-11 16:06] LABS: Glucose,Whole Blood 174 mg/dL (70-110)
--- NOTE | 2023-08-11 16:51 | XR ---
EXAMINATION TYPE: XR chest 2V DATE OF EXAM: 08/11/2023 3:27 PM CLINICAL INDICATION:Female, 73 years old with history of follow up pneumonia; [facility] COMPARISON: Chest radiographs from 05/12/2023. TECHNIQUE: XR chest 2V Frontal and lateral views of the chest. FINDINGS: Lungs/Pleura: Prominent interstitial lung markings are seen scattered throughout the lungs. No eviden ce of focal consolidation, pneumothorax or pleural effusion. Pulmonary vascularity: Unremarkable. Heart/mediastinum: Cardiomediastinal silhouette is unremarkable. Musculoskeletal: No acute osseous pathology. Other findings: None IMPRESSION: 1. Interstitial prominence throughout the lungs not significantly changed from priors. Correlate for congestive heart failure changes. Superimposed left lower lung infection is not excluded. 2. COPD changes. 3.
--- NOTE | 2023-08-11 16:58 | P.PN ---
Subjective Progress Note Date: 08/11/23 This is a 73-year-old female patient who presented with concerns of increased weakness and shakiness over the past 3 days patient recently had a prolonged hospitalization for CHF exacerbation as discharge to rehab. Patient was home for a week or 2 when symptoms started over the past few days. Patient denies fever but does report cough. Denies sick contacts. Patient had scheduled for cardiac catheterization on [address] Joseph outpatient. Patient has past medical history of diastolic heart failure, diabetes mellitus, DVT, osteoarthritis. Chest x-ray completed showing hypoventilatory changes but with patchy groundglass changes persist in the mid and lower lung or interstitial pneumonitis or atypical pneumonitis. EKG completed showing sinus rhythm. Troponin negative.. BNP 2030. White blood cell 6.9 in globin 11.4. Current vital signs temp 93, heart rate 93, respiratory rate 24, blood pressure 05/29/1955 with pulse ox 96% on 3 L. This time cardiology services have been consulted plans for cardiac catheterization inpatient. Due to patient's chest x-ray will consult pulmonary services in order influenza and COVID-19 test. This time patient is resting comfortably in bed. Patient's at bedside all questions answered. On 08/07/2023 patient was seen and examined on the medical floor she is alert and oriented 3 in no apparent distress she is complaining of generalized weakness, she is also complaining of cough and shortness of breath with any activity otherwise she denies any complaints there is no fever or chills no headache or dizziness no chest pain no nausea or vomiting no abdominal pain no diarrhea and no urinary symptoms, pro-calcitonin level was significantly elevated at 2.26 patient was started on IV cefepime, she was evaluated by cardiology and was cleared from cardiology standpoint, pulmonary are following. On 08/08/2023 patient's alert and oriented 3. Current vital signs temp 97.9, heart rate 82, respiratory rate 16, blood pressure 103/67 with pulse ox of 95% on 2 L. Patient remains on IV Maxipime cardiology services have cleared saeed ent. Patient denies chest pain. Patient denies nausea vomiting or diarrhea. Patient denies any urinary burning or frequency On 08/09/2023 patient was seen and examined she is alert and oriented 3 no distress, she is still complaining of cough and chest congestion, she is complaining of sores in her mouth, she is complaining of fatigue and generalized weakness otherwise she denies any complaints, there is no fever or chills no headache or dizziness no chest pain, no shortness of breath at rest she has some shortness of breath with activity, no nausea or vomiting no abdominal pain no diarrhea no blood in the stools no burning with urination no frequency or urgency and no hematuria. Patient has moderate to severe protein calorie malnutrition, she was started on ensure supplements, she also has significant anemia, with evidence of low iron level and severely low vitamin B12 level, she was started on iron and vitamin B12 supplements, will continue to follow. On 08/10/2023 patient was seen and examined on the medical floor she is alert and oriented 3 in no apparent distress she is complaining of generalized weakness and shortness of breath otherwise she denies any complaints there is no fever or chills no headache or dizziness no chest pain no shortness of breath no cough no nausea or vomiting no abdominal pain no diarrhea and no urinary symptoms. On 08/11/2023 patient was seen and examined on the medical floor she is alert and oriented 3 in no apparent distress, she stated that she is not feeling well she is still complaining of cough shortness of breath and had 1 episode of vomiting today, pulmonary input was reviewed will repeat chest x-ray continue with current medication at this time will follow in a.m.. Objective - Vital Signs Vital signs: Vital Signs Temp 97.9 F 08/11/23 08:00 Pulse 95 08/11/23 12:00 Resp 16 08/11/23 08:00 BP 132/79 08/11/23 08:00 Pulse Ox 94 L 08/11/23 08:00 FiO2 Intake & Output 08/10/23 08/11/23 08/11/23 18:59 06:59 18:59 Intake Total 898 794 Balance 898 794 Weight 115.7 kg Intake: Intake, IV Titration 100 Amount Cefepime 2 gm In Sodium 100 Chloride 0.9% 100 ml @ 25 mls/hr IVPB Q8H [facility] Rx#: [id number] Oral [id number] [id number] Other: Voiding Method Bedside Commode Bedside Commode # Voids 3 - Exam Head normocephalic Neck supple Lungs clear to auscultation bilaterally no wheezing or crackles Heart regular rate and rhythm S1-S2, no rub or gallop Abdomen is soft nontender nondistended positive bowel sounds no hepatosplenome keisha Extremities no edema Neuro alert and orientated to 3 - Labs CBC & Chem 7: 08/11/23 06:53 08/11/23 06:53 Labs: Abnormal Lab Results - Last 24 Hours (Table) 08/10/23 08/10/23 08/11/23 Range/Units 16:41 19:45 05:57 RBC (3.80-5.40) m/uL Hgb (11.4-16.0) gm/dL Hct (34.0-46.0) % Sodium (137-145) mmol/L Glucose (74-99) mg/dL POC Glucose (mg/dL) 161 H 276 H 133 H (70-110) mg/dL Total Protein (6.3-8.2) g/dL Albumin (3.5-5.0) g/dL 08/11/23 08/11/23 08/11/23 Range/Units 06:53 06:53 11:27 RBC 3.20 L (3.80-5.40) m/uL Hgb 10.3 L (11.4-16.0) gm/dL Hct 31.9 L (34.0-46.0) % Sodium 136 L (137-145) mmol/L Glucose 126 H (74-99) mg/dL POC Glucose (mg/dL) 172 H (70-110) mg/dL Total Protein 5.8 L (6.3-8.2) g/dL Albumin 2.8 L (3.5-5.0) g/dL Assessment and Plan Assessment: 1. Generalized weakness and cough. COVID-19 and influenza ordered 2. Chronic diastolic congestive heart failure 3. History of pulmonary hypertension 4. Moderate severe coronary calcification seen on CT. Cardiac catheterization scheduled per cardiology 5. History of essential hypertension 6. History of hyperlipidemia 7. History of diabetes mellitus 8. History of macular degeneration 9. History of DVT 10. Anemia, with evidence of low iron and low vitamin B12 11. Moderate to severe protein calorie malnutrition At this time patient will be admitted Cardiology and pulmonary service is consulted Influenza and COVID-19 ordered Repeat labs ordered Cardiac catheterization scheduled for 08/06/2023
[2023-08-11] MEDS: SODIUM FERRIC GLUCONAT-SUCROSE 125 MG in SODIUM CHLORIDE 0.9% 100 ML IVPB ONE (17:35)
--- NOTE | 2023-08-11 19:55 | CDI ---
Documentation Clarification Form Date: 08/11/2023 07:23:45 PM From: Zuleika Cheney RN, CCDS Phone: [phone] Admit Date: 08/07/2023 12:25:00 PM Patient Name: Lorene Palma Visit Number: [id number] Discharge Date: ATTENTION: The Clinical Documentation Specialists (CDI) and [facility] Coding Staff appreciate your assistance in clarifying documentation. Please respond to the clarification below the line at the bottom and electronically sign. The CDI & [facility] Coding staff will review the response and follow-up if needed. Please note: Queries are made part of the Legal Health Record. If you have any questions, please contact the author of this message via ITS. Dr. Pat Angulo The patients principal diagnosis the diagnosis that was chiefly responsible for the admission - has not been clearly identified and clarification is requested. The patient presented with increased weakness and shakiness shortness of breath over the past 3 days. History/Risk factors: Diabetes Mellitus, Deep Vein Thrombosis (DVT), Eye Disorder, Osteoarthritis (OA), Pneumonia Clinical Indicators: 73-year-old female with weakness cough and shortness of breath with any activity. Chest x-ray completed showing hypoventilatory changes but with patchy groundglass changes persist in the mid and lower lung or interstitial pneumonitis or atypical pneumonitis. 08/04 Vital Signs: 98/69 81 20 97% 3/L NC Lab findings: WBC 6.9, NA+ 234, Procalcitonin 2.61 Influenza Type A, B Not Detected RSV -Not Detected COVID-Not Detected Treatment: Cardiac/Telemetry Monitoring DuoNeb's per Orders Cefepime HCl 2 GM IVPB Q 8 HRS 08/06-08/10 ASA 81 MG PO Daily Lipitor 80 mg po daily Plavix 75 MG PO Daily 08/06-08/10' Lasix 40 MG PO BID 08/05-08/10 Consults: Pulmonary consult/progress note: Shortness of breath, multifactorial. Pneumonia is felt to be less likely at this point in time. Based on previous microbiology, the patient is currently on IV Cefepime covering pseudomonal infection/pneumonia. In your professional opinion, can you please clarify which diagnosis, after study, was the reason chiefly responsible for the admission? [ x ] Pneumonia (specify type if known) [ ] Moderate to severe coronary calcifications with coronary artery disease [ ] Other, please specify [ ] Unable to determine (Template Last Revised: July 2020) MTDD
[2023-08-11 20:05] LABS: Glucose,Whole Blood 207 mg/dL (70-110)
--- NOTE | 2023-08-11 20:16 | CDI ---
Documentation Clarification Form Date: 08/11/2023 07:57:07 PM From: Zuleika Cheney RN, CCDS Phone: [phone] Admit Date: 08/07/2023 12:25:00 PM Patient Name: Lorene Palma Visit Number: [id number] Discharge Date: ATTENTION: The Clinical Documentation Specialists (CDI) and [facility] Coding Staff appreciate your assistance in clarifying documentation. Please respond to the clarification below the line at the bottom and electronically sign. The CDI & [facility] Coding staff will review the response and follow-up if needed. Please note: Queries are made part of the Legal Health Record. If you have any questions, please contact the author of this message via ITS. Dr. Pat Angulo Moderate to severe protein calorie malnutrition is documented in the ongoing progress notes starting on 08/09/23 which may lack sufficient clinical evidence/support in the medical record. Additional clarification is requested. History/Risk Factors: Diabetes Mellitus, Deep Vein Thrombosis (DVT), Eye Disorder, Osteoarthritis (OA), Pneumonia Clinical Indicators: 73-year-old female with weakness cough and shortness of breath with any activity. Nutritional assessment: Weight 116.12 kg; Height 5ft 5 in BMI 42,5 Body Mass Index: Overweight Nutrition diagnosis: No nutrition diagnosis at this time. Provided Nutrition education Mediterranean diet handout, declined diet instruction Treatment: Handouts provided. RD name and number for future questions. Please clarify if moderate or severe protein calorie malnutrition is a valid diagnosis? [ ] Yes, Moderate protein calorie malnutrition is present as evidence by (additional clinical support): [ ] Yes, Severe protein calorie malnutrition is present as evident by ( additional clinical support): [ ] No, both moderate and severe protein calorie malnutrition is ruled out. [ ] Other (please specify diagnosis) [ ] Unable to determine (Template Last Revised: July 2020) MTDD
[2023-08-12 06:06] LABS: Glucose,Whole Blood 130 mg/dL (70-110)
--- NOTE | 2023-08-12 09:13 | P.PN ---
Subjective Progress Note Date: 08/12/23 This is a 73-year-old female patient who presented with concerns of increased weakness and shakiness over the past 3 days patient recently had a prolonged hospitalization for CHF exacerbation as discharge to rehab. Patient was home for a week or 2 when symptoms started over the past few days. Patient denies fever but does report cough. Denies sick contacts. Patient had scheduled for cardiac catheterization on [address] Joseph outpatient. Patient has past medical history of diastolic heart failure, diabetes mellitus, DVT, osteoarthritis. Chest x-ray completed showing hypoventilatory changes but with patchy groundglass changes persist in the mid and lower lung or interstitial pneumonitis or atypical pneumonitis. EKG completed showing sinus rhythm. Troponin negative.. BNP 2030. White blood cell 6.9 in globin 11.4. Current vital signs temp 93, heart rate 93, respiratory rate 24, blood pressure 05/29/1955 with pulse ox 96% on 3 L. This time cardiology services have been consulted plans for cardiac catheterization inpatient. Due to patient's chest x-ray will consult pulmonary services in order influenza and COVID-19 test. This time patient is resting comfortably in bed. Patient's at bedside all questions answered. On 08/07/2023 patient was seen and examined on the medical floor she is alert and oriented 3 in no apparent distress she is complaining of generalized weakness, she is also complaining of cough and shortness of breath with any activity otherwise she denies any complaints there is no fever or chills no headache or dizziness no chest pain no nausea or vomiting no abdominal pain no diarrhea and no urinary symptoms, pro-calcitonin level was significantly elevated at 2.26 patient was started on IV cefepime, she was evaluated by cardiology and was cleared from cardiology standpoint, pulmonary are following. On 08/08/2023 patient's alert and oriented 3. Current vital signs temp 97.9, heart rate 82, respiratory rate 16, blood pressure 103/67 with pulse ox of 95% on 2 L. Patient remains on IV Maxipime cardiology services have cleared pat ient. Patient denies chest pain. Patient denies nausea vomiting or diarrhea. Patient denies any urinary burning or frequency On 08/09/2023 patient was seen and examined she is alert and oriented 3 no distress, she is still complaining of cough and chest congestion, she is complaining of sores in her mouth, she is complaining of fatigue and generalized weakness otherwise she denies any complaints, there is no fever or chills no headache or dizziness no chest pain, no shortness of breath at rest she has some shortness of breath with activity, no nausea or vomiting no abdominal pain no diarrhea no blood in the stools no burning with urination no frequency or urgency and no hematuria. Patient has moderate to severe protein calorie malnutrition, she was started on ensure supplements, she also has significant anemia, with evidence of low iron level and severely low vitamin B12 level, she was started on iron and vitamin B12 supplements, will continue to follow. On 08/10/2023 patient was seen and examined on the medical floor she is alert and oriented 3 in no apparent distress she is complaining of generalized weakness and shortness of breath otherwise she denies any complaints there is no fever or chills no headache or dizziness no chest pain no shortness of breath no cough no nausea or vomiting no abdominal pain no diarrhea and no urinary symptoms. On 08/11/2023 patient was seen and examined on the medical floor she is alert and oriented 3 in no apparent distress, she stated that she is not feeling well she is still complaining of cough shortness of breath and had 1 episode of vomiting today, pulmonary input was reviewed will repeat chest x-ray continue with current medication at this time will follow in a.m.. 08/11/2022 for patient's alert and oriented 3. Patient reports some improvement with shortness of breath. Discussed case with pulmonary services chest x-ray showing improvement will repeat pro-calcitonin level. Also encouraged patient to get out of bed and up to chair. Current vital signs temp 97.8, heart rate 71, respiratory rate 16, blood pressure 112/69 with pulse ox 92% on 3 L Objective - Vital Signs Vital signs: Vital Signs Temp 97.4 F L 08/12/23 08:41 Pulse 80 08/12/23 09:01 Resp 16 08/12/23 08:41 BP 112/69 08/12/23 08:41 Pulse Ox 92 L 08/12/23 08:41 FiO2 Intake & Output 08/11/23 08/12/23 08/12/23 18:59 06:59 18:59 Intake Total 1216 460 Balance 1216 460 Intake: Intake, IV Titration 300 100 Amount Cefepime 2 gm In Sodium 200 100 Chloride 0.9% 100 ml @ 25 mls/hr IVPB Q8H [facility] Rx#: [id number] Sodium Ferric Gluconat- 100 Sucrose 125 mg In Sodium Chloride 0.9% 100 ml @ 100 mls/hr IVPB ONCE ONE Rx#:[id number] Oral 916 360 Other: Voiding Method Bedside Commode Bedside Commode # Voids 2 - Exam Head normocephalic Neck supple Lungs clear to auscultation bilaterally no wheezing or crackles Heart regular rate and rhythm S1-S2, no rub or gallop Abdomen is soft nontender nondistended positive bowel sounds no hepatosplenomegaly Extremities no edema Neuro alert and orientated to 3 - Labs CBC & Chem 7: 08/11/23 06:53 08/11/23 06:53 Labs: Abnormal Lab Results - Last 24 Hours (Table) 08/11/23 08/11/23 08/11/23 Range/Units 11:27 16:01 20:03 POC Glucose (mg/dL) 172 H 174 H 207 H (70-110) mg/dL 08/12/23 Range/Units 06:05 POC Glucose (mg/dL) 130 H (70-110) mg/dL Assessment and Plan Assessment: 1. Generalized weakness and cough. COVID-19 and influenza ordered 2. Chronic diastolic congestive heart failure 3. Acute hypoxic respiratory failure secondary to infectious etiology. Elevated pro-calcitonin level. Negative RSV Covid and influenza 4. History of pulmonary hypertension 5. Moderate severe coronary calcification seen on CT. Cardiac catheterization scheduled per cardiology 6. History of essential hypertension 7. History of hyperlipidemia 8. History of diabetes mellitus 9. History of macular degeneration 10. History of DVT At this time patient will be admitted Cardiology and pulmonary service is consulted Status post stent to the left circumflex Patient remains on IV antibiotics Repeat labs ordered
[2023-08-12 10:18] LABS: Basophils % (A) 1 %; Eosinophils # (A) 0.5 k/uL (0-0.7); Eosinophils % (A) 6 %; HCT 32.2 % (34.0-46.0); HGB 10.2 gm/dL (11.4-16.0); Hypochromasia Moderate; Lymphocytes # (A) 1.3 k/uL (1.0-4.8); Lymphocytes % (A) 15 %; MCH 32.5 pg (25.0-35.0); MCHC 31.6 g/dL (31.0-37.0); MCV 102.7 fL (80.0-100.0); Macrocytosis Slight; Mean Platelet Volume 8.2; Monocytes # (A) 0.5 k/uL (0-1.0); Monocytes % (A) 6 %; Neutrophils # (A) 6.1 k/uL (1.3-7.7); Neutrophils % (A) 71 %; Platelet Count 295 k/uL (150-450); Poikilocytosis Slight; RBC 3.13 m/uL (3.80-5.40); RDW 14.7 % (11.5-15.5); WBC 8.5 k/uL (3.8-10.6)
[2023-08-12 10:34] LABS: ALT 18 U/L (4-34); AST 22 U/L (14-36); African American GFR (CKD) >90 (>60 ml/min/1.73 sqM); Albumin 2.9 g/dL (3.5-5.0); Alkaline Phosphatase 115 U/L (38-126); Anion Gap 10 mmol/L; Blood Urea Nitrogen 20 mg/dL (7-17); Calcium 8.8 mg/dL (8.4-10.2); Carbon Dioxide 22 mmol/L (22-30); Chloride 104 mmol/L (98-107); Glucose 244 mg/dL (74-99); Non-African American GFR(CKD) 87 (>60 ml/min/1.73 sqM); Potassium 3.7 mmol/L (3.5-5.1); Sodium 136 mmol/L (137-145); Total Bilirubin 0.5 mg/dL (0.2-1.3); Total Protein 6.1 g/dL (6.3-8.2)
--- NOTE | 2023-08-12 10:51 | P.PN ---
Subjective Progress Note Date: 08/12/23 On today's evaluation of 08/11/2023, the patient is being seen for a follow-up. This patient is 73-year-old white female patient with known history of diabetes mellitus, and she is morbidly obese with a BMI of 42. She has had previous infections with Pseudomonas and a previous serum sample that was positive for Pseudomonas aeruginosa and the patient was treated for that back in April 2023. She came in with generalized weakness and fatigue and shortness of breath and worsening cough and congestion. The patient has a preserved LV function on echocardiogram with an EF of around 50 to 55%. Nevertheless she has severe pulmonary hypertension and moderate severe tricuspid regurgitation. During course current admission, the blood work was unremarkable and the patient's proBNP level was in the 2000 range. She also has coronary artery disease and she has a stent placed in her mid circumflex coronary artery. At this point in time, the patient is being treated with bronchodilators and she is also on IV cefepime based on her previous microbiology. No recent sputum samples are available. The chest x-ray that was done on 08/07/2023 showed smaller lung volumes and some interstitial densities in the mid and lower lung davis bilaterally. The viral serology/screen that was done during this current admission was negative. She is currently on oxygen at 3 L/min nasal cannula with a pulse ox of 94%. On today's evaluation of 3 92,024, the patient is comfortable in bed. She continues to have some limited congested cough. No significant sputum production. Pulse ox 92% on 3 selection by nasal cannula. Repeat chest x-ray from yesterday showed some interstitial infiltrates in the left lung base in the right lung base. Noted the patient also has background COPD. She has been infected with Pseudomonas back in April 2023. During this current admission, the patient's procalcitonin level was elevated at 2.61 and the patient was started back on IV cefepime. Overall, she is doing well. Sodium levels at 136 potassium level is 3.7 with a BUN of 20 creatinine of 0.6 and the white cell count is at 8.5 with a hemoglobin 10.2. She has no other new complaints otherwise for now. She remains on IV cefepime. She is also on Lasix 40 mg p.o. twice a day patient on [facility]. Objective - Vital Signs Vital signs: Vital Signs Temp 97.4 F L 08/12/23 08:41 Pulse 96 08/12/23 08:41 Resp 16 08/12/23 08:41 BP 112/69 08/12/23 08:41 Pulse Ox 92 L 08/12/23 08:41 FiO2 Intake & Output 08/11/23 08/12/23 08/12/23 18:59 06:59 18:59 Intake Total 1216 460 Balance 1216 460 Intake: Intake, IV Titration 300 100 Amount Cefepime 2 gm In Sodium 200 100 Chloride 0.9% 100 ml @ 25 mls/hr IVPB Q8H [facility] Rx#: [id number] Sodium Ferric Gluconat- 100 Sucrose 125 mg In Sodium Chloride 0.9% 100 ml @ 100 mls/hr IVPB ONCE ONE Rx#:[id number] Oral 916 360 Other: Voiding Method Bedside Commode Bedside Commode # Voids 2 - Exam No acute distress, oriented 3. No respiratory distress. Currently on 3 L. Morbidly obese with a BMI of 42 HEENT examination is grossly unremarkable. Mucous membranes are moist. No oral lesions. Neck supple. Full range of motion. No adenopathy thyromegaly or neck vein distention. Cardiovascular examination reveals regular rhythm rate. S1-S2 normal. No S3 or S4. No discernible murmur noted. Lungs reveal mostly clear breath sounds. No wheezes or crackles. Minimal scattered rhonchi. Abdomen soft bowel sounds are heard. No masses or tenderness. Extremities are intact. No cyanosis clubbing or edema. Skin is without rash or lesion. Neurologic examination is brief but nonfocal. - Labs CBC & Chem 7: 08/12/23 09:52 08/12/23 09:52 Labs: Abnormal Lab Results - Last 24 Hours (Table) 08/11/23 08/11/23 08/11/23 Range/Units 11:27 16:01 20:03 POC Glucose (mg/dL) 172 H 174 H 207 H (70-110) mg/dL 08/12/23 Range/Units 06:05 POC Glucose (mg/dL) 130 H (70-110) mg/dL Assessment and Plan Plan: Shortness of breath, multifactorial. Pneumonia is felt to be less likely at this point in time. Based on previous microbiology, the patient is currently on IV cefepime covering pseudomonal infection/pneumonia. Procalcitonin level was elevated at time of admission. Based on that, the patient was covered with IV cefepime suspecting a pseudomonal pneumonia. Acuity of exacerbation secondary to above, improving Coronary artery disease, S/P PCI/stent to the mid left circumflex done 08/06/2023. Chronic diastolic congestive heart failure. Patient has preserved LV function with secondary pulm hypertension. Severe pulmonary hypertension. Moderate to severe tricuspid regurgitation. Acute hypoxemic respiratory failure, likely multifactorial. Patient is curren tly on 3 L O2 nasal cannula Previous UTI, isolated organism Pseudomonas aeruginosa. History of kidney stones. Diabetes mellitus type 2. History of hyperlipidemia. History of DVT. History of pneumonia, secondary to Pseudomonas. Morbid obesity, with a BMI of 42.6 kg/m. Plan: Repeat procalcitonin level May switch to oral antibiotics with ciprofloxacin if there is significant drop in the procalcitonin level more than 80% drop. Wean FiO2 as tolerated to maintain saturation above 90% Obtain another chest x-ray in the morning Continue Mathew avitia [id number] Continue aspirin 81 mg p.o. daily in combination with Plavix Continue metoprolol 25 mg twice a day Lasix 40 mg p.o. twice a day Statins in the form of Lipitor 20 mg p.o. daily Incentive spirometer Increase mobility Will follow
[2023-08-12 12:01] LABS: Glucose,Whole Blood 159 mg/dL (70-110)
[2023-08-12 16:36] LABS: Glucose,Whole Blood 157 mg/dL (70-110)
[2023-08-12 20:18] LABS: Glucose,Whole Blood 233 mg/dL (70-110)
[2023-08-13 05:50] LABS: Glucose,Whole Blood 145 mg/dL (70-110)
--- NOTE | 2023-08-13 08:27 | XR ---
EXAMINATION TYPE: XR chest 1V DATE OF EXAM: 08/13/2023 6:48 AM CLINICAL INDICATION:Female, 73 years old with history of Pneumonia follow-up; [facility] COMPARISON: Chest radiographs from 1824 TECHNIQUE: XR chest 1V Frontal view of the chest. FINDINGS: Lungs/Pleura: There is no evidence of pleural effusion, focal consolidation, or pneumothorax. Pulmonary vascularity: Unremarkable. Heart/mediastinum: Cardiomediastinal silhouette is unremarkable. Musculoskeletal: No acute osseous pathology. IMPRESSION: No evidence for airspace consolidation, No acute cardiopulmonary disease/process.
[2023-08-13 09:14] LABS: ALT 17 U/L (8-44); AST 15 U/L (13-35); Albumin 3.3 g/dL (3.8-4.9); Albumin/Globulin Ratio 1.27 Ratio (1.60-3.17); Alkaline Phosphatase 105 U/L (41-126); BUN/Creat Ratio 29.86 Ratio (12.00-20.00); Blood Urea Nitrogen 20.9 mg/dL (9.0-27.0); Carbon Dioxide 25.5 mmol/L (21.6-31.8); Chloride 105 mmol/L (96-109); Globulin 2.6 g/dL (1.6-3.3); Glucose 151 mg/dL (70-110); Potassium 3.8 mmol/L (3.5-5.5); Sodium 140 mmol/L (135-145); Total Bilirubin 0.3 mg/dL (0.3-1.2); Total Protein 5.9 g/dL (6.2-8.2)
[2023-08-13 09:15] LABS: Basophils # (A) 0.05 X 10*3/uL (0.00-0.10); Basophils % (A) 0.5 %; Eosinophils # (A) 0.54 X 10*3/uL (0.04-0.35); Eosinophils % (A) 5.7 %; HCT 31.1 % (37.2-46.3); HGB 10.1 g/dL (12.0-15.0); Lymphocytes # (A) 1.91 X 10*3/uL (0.90-5.00); MCH 32.3 pg (27.0-32.0); MCHC 32.5 g/dL (32.0-37.0); MCV 99.4 FL (80.0-97.0); Mean Platelet Volume 10.4 FL (9.5-12.2); Monocytes # (A) 0.77 X 10*3/uL (0.20-1.00); Monocytes % (A) 8.1 %; NRBC Per 100 WBC 0 X 10*3/uL (0.00-0.01); Neutrophils # (A) 5.83 X 10*3/uL (1.80-7.70); Neutrophils % (A) 61.1 %; Platelet Count 308 X 10*3/uL (140-440); RBC 3.13 X 10*6/uL (4.10-5.20); RDW 14.8 % (11.5-14.5); WBC 9.54 X 10*3/uL (4.50-10.00)
--- NOTE | 2023-08-13 10:53 | P.PN ---
Subjective Progress Note Date: 08/13/23 This is a 73-year-old female patient who presented with concerns of increased weakness and shakiness over the past 3 days patient recently had a prolonged hospitalization for CHF exacerbation as discharge to rehab. Patient was home for a week or 2 when symptoms started over the past few days. Patient denies fever but does report cough. Denies sick contacts. Patient had scheduled for cardiac catheterization on [address] Joseph outpatient. Patient has past medical history of diastolic heart failure, diabetes mellitus, DVT, osteoarthritis. Chest x-ray completed showing hypoventilatory changes but with patchy groundglass changes persist in the mid and lower lung or interstitial pneumonitis or atypical pneumonitis. EKG completed showing sinus rhythm. Troponin negative.. BNP 2030. White blood cell 6.9 in globin 11.4. Current vital signs temp 93, heart rate 93, respiratory rate 24, blood pressure 05/29/1955 with pulse ox 96% on 3 L. This time cardiology services have been consulted plans for cardiac catheterization inpatient. Due to patient's chest x-ray will consult pulmonary services in order influenza and COVID-19 test. This time patient is resting comfortably in bed. Patient's at bedside all questions answered. On 08/07/2023 patient was seen and examined on the medical floor she is alert and oriented 3 in no apparent distress she is complaining of generalized weakness, she is also complaining of cough and shortness of breath with any activity otherwise she denies any complaints there is no fever or chills no headache or dizziness no chest pain no nausea or vomiting no abdominal pain no diarrhea and no urinary symptoms, pro-calcitonin level was significantly elevated at 2.26 patient was started on IV cefepime, she was evaluated by cardiology and was cleared from cardiology standpoint, pulmonary are following. On 08/08/2023 patient's alert and oriented 3. Current vital signs temp 97.9, heart rate 82, respiratory rate 16, blood pressure 103/67 with pulse ox of 95% on 2 L. Patient remains on IV Maxipime cardiology services have cleared patie nt. Patient denies chest pain. Patient denies nausea vomiting or diarrhea. Patient denies any urinary burning or frequency On 08/09/2023 patient was seen and examined she is alert and oriented 3 no distress, she is still complaining of cough and chest congestion, she is complaining of sores in her mouth, she is complaining of fatigue and generalized weakness otherwise she denies any complaints, there is no fever or chills no headache or dizziness no chest pain, no shortness of breath at rest she has some shortness of breath with activity, no nausea or vomiting no abdominal pain no diarrhea no blood in the stools no burning with urination no frequency or urgency and no hematuria. Patient has moderate to severe protein calorie malnutrition, she was started on ensure supplements, she also has significant anemia, with evidence of low iron level and severely low vitamin B12 level, she was started on iron and vitamin B12 supplements, will continue to follow. On 08/10/2023 patient was seen and examined on the medical floor she is alert and oriented 3 in no apparent distress she is complaining of generalized weakness and shortness of breath otherwise she denies any complaints there is no fever or chills no headache or dizziness no chest pain no shortness of breath no cough no nausea or vomiting no abdominal pain no diarrhea and no urinary symptoms. On 08/11/2023 patient was seen and examined on the medical floor she is alert and oriented 3 in no apparent distress, she stated that she is not feeling well she is still complaining of cough shortness of breath and had 1 episode of vomiting today, pulmonary input was reviewed will repeat chest x-ray continue with current medication at this time will follow in a.m.. 08/11/2022 for patient's alert and oriented 3. Patient reports some improvement with shortness of breath. Discussed case with pulmonary services chest x-ray showing improvement will repeat pro-calcitonin level. Also encouraged patient to get out of bed and up to chair. Current vital signs temp 97.8, heart rate 71, respiratory rate 16, blood pressure 112/69 with pulse ox 92% on 3 L On 08/12/2022 patient alert and oriented 3. pulmonary service explaining to patient pro-calcitonin level is significantly decreased chest x-ray improved patient will be transitioned to by mouth antibiotics. Patient and unhappy and not wanting to go home at this time due to concerns of increased swelling to lower extremity and patient's weakness patient admits that she has not been getting out of bed. Explained to patient that she needs to get out of bed to increase her physical mobility patient has been declining any referral to rehab at this time. Patient remains on Lasix 40 mg twice daily and switched to Cipro antibiotic pro-calcitonin improving to 0.33. Patient vital signs temp 97.5, heart rate 81, respiratory rate 20, blood pressure 104/67 with pulse ox 96% on 3 L Objective - Vital Signs Vital signs: Vital Signs Temp 97.5 F L 08/13/23 07:25 Pulse 96 08/13/23 08:55 Resp 20 08/13/23 07:25 BP 104/67 08/13/23 07:25 Pulse Ox 94 L 08/13/23 08:47 FiO2 Intake & Output 08/12/23 08/13/23 08/13/23 18:59 06:59 18:59 Intake Total 688 Balance 688 Weight 103.5 kg 103.5 kg Intake: Oral 688 Other: Voiding Method Bedside Commode Toilet # Voids 3 2 - Exam Head normocephalic Neck supple Lungs clear to auscultation bilaterally no wheezing or crackles Heart regular rate and rhythm S1-S2, no rub or gallop Abdomen is soft nontender nondistended positive bowel sounds no hep atosplenomegaly Extremities no edema Neuro alert and orientated to 3 - Labs CBC & Chem 7: 08/13/23 04:44 08/13/23 04:44 Labs: Abnormal Lab Results - Last 24 Hours (Table) 08/12/23 08/12/23 08/12/23 Range/Units 09:52 12:00 16:35 RBC (4.10-5.20) X 10*6/uL Hgb (12.0-15.0) g/dL Hct (37.2-46.3) % MCV (80.0-97.0) FL MCH (27.0-32.0) pg RDW (11.5-14.5) % Immature Gran # (0.00-0.04) X 10*3/uL Eosinophils # (0.04-0.35) X 10*3/uL BUN/Creatinine Ratio (12.00-20.00) Ratio Glucose (70-110) mg/dL POC Glucose (mg/dL) 159 H 157 H (70-110) mg/dL Total Protein (6.2-8.2) g/dL Albumin (3.8-4.9) g/dL Albumin/Globulin Ratio (1.60-3.17) Ratio Procalcitonin 0.33 H (0.02-0.09) ng/mL 08/12/23 08/13/23 08/13/23 Range/Units 20:16 04:44 04:44 RBC 3.13 L (4.10-5.20) X 10*6/uL Hgb 10.1 L (12.0-15.0) g/dL Hct 31.1 L (37.2-46.3) % MCV 99.4 H (80.0-97.0) FL MCH 32.3 H (27.0-32.0) pg RDW 14.8 H (11.5-14.5) % Immature Gran # 0.44 H (0.00-0.04) X 10*3/uL Eosinophils # 0.54 H (0.04-0.35) X 10*3/uL BUN/Creatinine Ratio 29.86 H (12.00-20.00) Ratio Glucose 151 H (70-110) mg/dL POC Glucose (mg/dL) 233 H (70-110) mg/dL Total Protein 5.9 L (6.2-8.2) g/dL Albumin 3.3 L (3.8-4.9) g/dL Albumin/Globulin Ratio 1.27 L (1.60-3.17) Ratio Procalcitonin (0.02-0.09) ng/mL 08/13/23 Range/Units 05:49 RBC (4.10-5.20) X 10*6/uL Hgb (12.0-15.0) g/dL Hct (37.2-46.3) % MCV (80.0-97.0) FL MCH (27.0-32.0) pg RDW (11.5-14.5) % Immature Gran # (0.00-0.04) X 10*3/uL Eosinophils # (0.04-0.35) X 10*3/uL BUN/Creatinine Ratio (12.00-20.00) Ratio Glucose (70-110) mg/dL POC Glucose (mg/dL) 145 H (70-110) mg/dL Total Protein (6.2-8.2) g/dL Albumin (3.8-4.9) g/dL Albumin/Globulin Ratio (1.60-3.17) Ratio Procalcitonin (0.02-0.09) ng/mL Assessment and Plan Assessment: 1. Generalized weakness and cough. 2. Chronic diastolic congestive heart failure 3. History of pulmonary hypertension 4. Moderate severe coronary calcification seen on CT. status post cardiac catheterization 5. History of essential hypertension 6. History of hyperlipidemia 7. History of diabetes mellitus 8. History of macular degeneration 9. History of DVT 10. Anemia, with evidence of low iron and low vitamin B12 11. Moderate to severe protein calorie malnutrition At this time patient will be admitted Cardiology and pulmonary service is consulted Repeat labs ordered Cardiac catheterization completed on 08/06/2023 patient currently on Plavix Propulsid troponin dropping to 0.33 switched to oral antibiotic per pulmonary services
[2023-08-13 11:02] VITALS: BMI 38.0
[2023-08-13 11:27] LABS: Glucose,Whole Blood 188 mg/dL (70-110)
--- NOTE | 2023-08-13 12:29 | P.PN ---
Subjective Progress Note Date: 08/13/23 On today's evaluation of 08/11/2023, the patient is being seen for a follow-up. This patient is 73-year-old white female patient with known history of diabetes mellitus, and she is morbidly obese with a BMI of 42. She has had previous infections with Pseudomonas and a previous serum sample that was positive for Pseudomonas aeruginosa and the patient was treated for that back in April 2023. She came in with generalized weakness and fatigue and shortness of breath and worsening cough and congestion. The patient has a preserved LV function on echocardiogram with an EF of around 50 to 55%. Nevertheless she has severe pulmonary hypertension and moderate severe tricuspid regurgitation. During course current admission, the blood work was unremarkable and the patient's proBNP level was in the 2000 range. She also has coronary artery disease and she has a stent placed in her mid circumflex coronary artery. At this point in time, the patient is being treated with bronchodilators and she is also on IV cefepime based on her previous microbiology. No recent sputum samples are available. The chest x-ray that was done on 08/07/2023 showed smaller lung volumes and some interstitial densities in the mid and lower lung davis bilaterally. The viral serology/screen that was done during this current admission was negative. She is currently on oxygen at 3 L/min nasal cannula with a pulse ox of 94%. On today's evaluation of 3 ,024, the patient is comfortable in bed. She continues to have some limited congested cough. No significant sputum production. Pulse ox 92% on 3 selection by nasal cannula. Repeat chest x-ray from yesterday showed some interstitial infiltrates in the left lung base in the right lung base. Noted the patient also has background COPD. She has been infected with Pseudomonas back in April 2023. During this current admission, the patient's procalcitonin level was elevated at 2.61 and the patient was started back on IV cefepime. Overall, she is doing well. Sodium levels at 136 potassium level is 3.7 with a BUN of 20 creatinine of 0.6 and the white cell count is at 8.5 with a hemoglobin 10.2. She has no other new complaints otherwise for now. She remains on IV cefepime. She is also on Lasix 40 mg p.o. twice a day patient [facility]. On today's evaluation of 08/13/2023, I am seeing the patient for a follow-up. The patient is doing well. The patient remains on oxygen and she is currently on 3 L of O2 nasal cannula with a pulse ox of 94%. Cough remains congested. Repeat chest x-ray was done today and shows no evidence of any airspace disease or consolidation. Meanwhile, repeat blood work and procalcitonin level showed improvement in the patient's procalcitonin level has dropped from 2.6 down to 0.33. Rest of the blood work shows a WBC count of 9.5 with a hemoglobin 10.1 and a platelet count of 308. Sodium is at 140, BUN is at 20 with a creatinine of 0.7. The patient was on IV cefepime and the patient will be switched to oral ciprofloxacin 500 mg p.o. twice a day. She remains on Lasix 40 mg p.o. twice daily guarding lower extremity edema. She remains on DuoNeb updrafts [id number]. Obviously, there is interest to discharge patient home. I do not think the patient herself and is interested in being discharged. Case was discussed with the medical team. Objective - Vital Signs Vital signs: Vital Signs Temp 97.5 F L 08/13/23 07:25 Pulse 96 08/13/23 08:55 Resp 20 08/13/23 07:25 BP 104/67 08/13/23 07:25 Pulse Ox 94 L 08/13/23 08:47 FiO2 Intake & Output 08/12/23 08/13/23 08/13/23 18:59 06:59 18:59 Intake Total 688 Balance 688 Weight 103.5 kg Intake: Oral 688 Other: Voiding Method Bedside Commode Toilet # Voids 3 2 - Exam No acute distress, oriented 3. No respiratory distress. Currently on 3 L. Morbidly obese with a BMI of 42 HEENT examination is grossly unremarkable. Mucous membranes are moist. No oral lesions. Neck supple. Full range of motion. No adenopathy thyromegaly or neck vein distention. Cardiovascular examination reveals regular rhythm rate. S1-S2 normal. No S3 or S4. No discernible murmur noted. Lungs reveal mostly clear breath sounds. No wheezes or crackles. Minimal scattered rhonchi. Abdomen soft bowel sounds are heard. No masses or tenderness. Extremities are intact. No cyanosis clubbing or edema. Skin is without rash or lesion. Neurologic examination is brief but nonfocal. - Labs CBC & Chem 7: 08/13/23 04:44 08/13/23 04:44 Labs: Abnormal Lab Results - Last 24 Hours (Table) 08/12/23 08/12/23 08/12/23 Range/Units 09:52 09:52 09:52 RBC 3.13 L (3.80-5.40) m/uL Hgb 10.2 L (11.4-16.0) gm/dL Hct 32.2 L (34.0-46.0) % MCV 102.7 H (80.0-100.0) fL MCH (27.0-32.0) pg RDW (11.5-14.5) % Immature Gran # (0.00-0.04) X 10*3/uL Eosinophils # (0.04-0.35) X 10*3/uL Sodium 136 L (137-145) mmol/L BUN 20 H (7-17) mg/dL BUN/Creatinine Ratio (12.00-20.00) Ratio Glucose 244 H (74-99) mg/dL POC Glucose (mg/dL) (70-110) mg/dL Total Protein 6.1 L (6.3-8.2) g/dL Albumin 2.9 L (3.5-5.0) g/dL Albumin/Globulin Ratio (1.60-3.17) Ratio Procalcitonin 0.33 H (0.02-0.09) ng/mL 08/12/23 08/12/23 08/12/23 Range/Units 12:00 16:35 20:16 RBC (3.80-5.40) m/uL Hgb (11.4-16.0) gm/dL Hct (34.0-46.0) % MCV (80.0-100.0) fL MCH (27.0-32.0) pg RDW (11.5-14.5) % Immature Gran # (0.00-0.04) X 10*3/uL Eosinophils # (0.04-0.35) X 10*3/uL Sodium (137-145) mmol/L BUN (7-17) mg/dL BUN/Creatinine Ratio (12.00-20.00) Ratio Glucose (74-99) mg/dL POC Glucose (mg/dL) 159 H 157 H 233 H (70-110) mg/dL Total Protein (6.3-8.2) g/dL Albumin (3.5-5.0) g/dL Albumin/Globulin Ratio (1.60-3.17) Ratio Procalcitonin (0.02-0.09) ng/mL 08/13/23 08/13/23 08/13/23 Range/Units 04:44 04:44 05:49 RBC 3.13 L (3.80-5.40) m/uL Hgb 10.1 L (11.4-16.0) gm/dL Hct 31.1 L (34.0-46.0) % MCV 99.4 H (80.0-100.0) fL MCH 32.3 H (27.0-32.0) pg RDW 14.8 H (11.5-14.5) % Immature Gran # 0.44 H (0.00-0.04) X 10*3/uL Eosinophils # 0.54 H (0.04-0.35) X 10*3/uL Sodium (137-145) mmol/L BUN (7-17) mg/dL BUN/Creatinine Ratio 29.86 H (12.00-20.00) Ratio Glucose 151 H (74-99) mg/dL POC Glucose (mg/dL) 145 H (70-110) mg/dL Total Protein 5.9 L (6.3-8.2) g/dL Albumin 3.3 L (3.5-5.0) g/dL Albumin/Globulin Ratio 1.27 L (1.60-3.17) Ratio Procalcitonin (0.02-0.09) ng/mL Assessment and Plan Plan: Acute on chronic shortness of breath, multifactorial. Pneumonia is felt to be less likely at this point in time. Based on previous microbiology, the patient is currently on IV cefepime covering pseudomonal infection/pneumonia. Procalcitonin level was elevated at time of admission. Based on that, the patient was covered with IV cefepime suspecting a pseudomonal pneumonia. The repeat chest x-ray from today shows no evidence of any airspace consolidation or infiltrates. The patient was switched to oral ciprofloxacin. Procalcitonin level has dropped. Antibiotics have been de-escalated. Acute COPD exacerbation secondary to above, improving Coronary artery disease, S/P PCI/stent to the mid left circumflex done 08/06/2023. Chronic diastolic congestive heart failure. Patient has preserved LV function with secondary pulm hypertension. Severe pulmonary hypertension. Moderate to severe tricuspid regurgitation. Acute hypoxemic respiratory failure, likely multifactorial. Patient is currently on 3 L O2 nasal cannula Previous UTI, isolated organism Pseudomonas aeruginosa. History of kidney stones. Diabetes mellitus type 2. History of hyperlipidemia. History of DVT. History of pneumonia, secondary to Pseudomonas. Morbid obesity, with a BMI of 42.6 kg/m. Plan: Repeat procalcitonin level shows marked drop in the level and the antibiotics have been de-escalated to oral ciprofloxacin. Wean FiO2 as tolerated to maintain saturation above 90%, currently on 3 L Chest x-ray from this morning shows no acute cardiopulmonary process Continue DuoNeb updrafts [id number] Continue aspirin 81 mg p.o. daily in combination with Plavix Continue metoprolol 25 mg twice a day Lasix 40 mg p.o. twice a day Statins in the form of Lipitor 20 mg p.o. daily Incentive spirometer Increase mobility Will follow
[2023-08-13] MEDS: SODIUM FERRIC GLUCONAT-SUCROSE 125 MG in SODIUM CHLORIDE 0.9% 100 ML IVPB ONE (12:32)
[2023-08-13 16:58] LABS: Glucose,Whole Blood 151 mg/dL (70-110)
--- NOTE | 2023-08-13 17:41 | CDI ---
Documentation Clarification Form Date: 08/11/2023 07:57:00 PM From: Zuleika Cheney RN, CCDS Phone: [phone] Admit Date: 08/07/2023 12:25:00 PM Patient Name: Lorene Palma Visit Number: [id number] Discharge Date: ATTENTION: The Clinical Documentation Specialists (CDI) and [facility] Coding Staff appreciate your assistance in clarifying documentation. Please respond to the clarification below the line at the bottom and electronically sign. The CDI & [facility] Coding staff will review the response and follow-up if needed. Please note: Queries are made part of the Legal Health Record. If you have any questions, please contact the author of this message via ITS. Dr. Pat Angulo Moderate to severe protein calorie malnutrition is documented in the ongoing progress notes starting on 08/09/23 which may lack sufficient clinical evidence/support in the medical record. Additional clarification is requested. History/Risk Factors: Diabetes Mellitus, Deep Vein Thrombosis (DVT), Eye Disorder, Osteoarthritis (OA), Pneumonia Clinical Indicators: 73-year-old female with weakness cough and shortness of breath with any activity. Nutritional assessment: Weight 116.12 kg, Height 5ft 5 in BMI 42.5 Body Mass Index: Overweight Nutrition diagnosis: No nutrition diagnosis at this time. Provided Nutrition education Mediterranean diet handout, declined diet instruction Treatment: Handouts provided. RD name and number for future questions. Please clarify if moderate or severe protein calorie malnutrition is a valid diagnosis? [ xxxxx ] Yes, Moderate protein calorie malnutrition is present as evidence by (additional clinical support): low albumin [ ] No, both moderate and severe protein calorie malnutrition is ruled out. [ ] Other (please specify diagnosis) [ ] Unable to determine (Template Last Revised: July 2020) MTDD
[2023-08-13 20:30] LABS: Glucose,Whole Blood 238 mg/dL (70-110)
[2023-08-13] MEDS: CIPROFLOXACIN HCL 500 MG TAB PO SCH (20:49)
[2023-08-14 05:46] LABS: Glucose,Whole Blood 148 mg/dL (70-110)
[2023-08-14 08:32] VITALS: BP 103/65; RESP 16; TEMP 97.4
[2023-08-14 09:43] VITALS: PULSE 81
[2023-08-14 11:34] LABS: Glucose,Whole Blood 199 mg/dL (70-110)
--- NOTE | 2023-08-14 12:32 | P.DS ---
Providers Date of admission: 08/07/23 12:25 Expected date of discharge: 08/14/23 Attending physician: Pat Angulo Consults: 08/05/23 20:16 Consult Physician Urgent Consulting Provider: Geremias Retana Consult Reason/Comments: Hypotension Do you want consulting provider notified?: Yes 08/06/23 09:01 Consult Physician Routine Consulting Provider: Raheel Manzano Reason/Comments: chest xray Do you want consulting provider notified?: Yes 08/06/23 13:34 Consult Physician Routine Consulting Provider: Geremias Retana Consult Reason/Comments: Post Interventional patient Do you want consulting provider notified?: Already Contacted Primary care physician: [facility] Hospital Course: Diagnosis on discharge: 1. Generalized weakness and cough. 2. Chronic diastolic congestive heart failure 3. History of pulmonary hypertension 4. Moderate severe coronary calcification seen on CT. status post cardiac catheterization 5. History of essential hypertension 6. History of hyperlipidemia 7. History of diabetes mellitus 8. History of macular degeneration 9. History of DVT 10. Anemia, with evidence of low iron and low vitamin B12 11. Moderate to severe protein calorie malnutrition Hospital course: This is a 73-year-old female patient who presented with concerns of increased weakness and shakiness over the past 3 days patient recently had a prolonged hospitalization for CHF exacerbation as discharge to rehab. Patient was home for a week or 2 when symptoms started over the past few days. Patient denies fever but does report cough. Denies sick contacts. Patient had scheduled for cardiac catheterization on [address] Joseph outpatient. Patient has past medical history of diastolic heart failure, diabetes mellitus, DVT, osteoarthritis. Chest x-ray completed showing hypoventilatory changes but with patchy groundglass changes persist in the mid and lower lung or interstitial pneumonitis or atypical pneumonitis. EKG completed showing sinus rhythm. Troponin negative.. BNP 2030. White blood cell 6.9 in globin 11.4. Current vital signs temp 93, heart rate 93, respiratory rate 24, blood pressure 05/29/1955 with pulse ox 96% on 3 L. This time cardiology services have been consulted plans for cardiac catheterization inpatient. Due to patient's chest x-ray will consult pulmonary services in order influenza and COVID-19 test. This time patient is resting comfortably in bed. Patient's at bedside all questions answered. On 08/07/2023 patient was seen and examined on the medical floor she is alert and oriented 3 in no apparent distress she is complaining of generalized weakness, she is also complaining of cough and shortness of breath with any activity otherwise she denies any complaints there is no fever or chills no headache or dizziness no chest pain no nausea or vomiting no abdominal pain no diarrhea and no urinary symptoms, pro-calcitonin level was significantly elevated at 2.26 patient was started on IV cefepime, she was evaluated by cardiology and was cleared from cardiology standpoint, pulmonary are following. On 08/08/2023 patient's alert and oriented 3. Current vital signs temp 97.9, heart rate 82, respiratory rate 16, blood pressure 103/67 with pulse ox of 95% on 2 L. Patient remains on IV Maxipime cardiology services have cleared patient. Patient denies chest pain. Patient denies nausea vomiting or diarrhea. Patient denies any urinary burning or frequency On 08/09/2023 patient was seen and examined she is alert and oriented 3 no distress, she is still complaining of cough and chest congestion, she is complaining of sores in her mouth, she is complaining of fatigue and generalized weakness otherwise she denies any complaints, there is no fever or chills no headache or dizziness no chest pain, no shortness of breath at rest she has some shortness of breath with activity, no nausea or vomiting no abdominal pain no diarrhea no blood in the stools no burning with urination no frequency or urgency and no hematuria. Patient has moderate to severe protein calorie malnutrition, she was started on ensure supplements, she also has significant anemia, with evidence of low iron level and severely low vitamin B12 level, she was started on iron and vitamin B12 supplements, will continue to follow. On 08/10/2023 patient was seen and examined on the medical floor she is alert and oriented 3 in no apparent distress she is complaining of generalized weakness and shortness of breath otherwise she denies any complaints there is no fever or chills no headache or dizziness no chest pain no shortness of breath no cough no nausea or vomiting no abdominal pain no diarrhea and no urinary symptoms. On 08/11/2023 patient was seen and examined on the medical floor she is alert and oriented 3 in no apparent distress, she stated that she is not feeling well she is still complaining of cough shortness of breath and had 1 episode of vomiting today, pulmonary input was reviewed will repeat chest x-ray continue with current medication at this time will follow in a.m.. 08/12/2023 for patient's alert and oriented 3. Patient reports some improvement with shortness of breath. Discussed case with pulmonary services chest x-ray showing improvement will repeat pro-calcitonin level. Also encouraged patient to get out of bed and up to chair. Current vital signs temp 97.8, heart rate 71, respiratory rate 16, blood pressure 112/69 with pulse ox 92% on 3 L On 08/13/2023 patient alert and oriented 3. pulmonary service explaining to patient pro-calcitonin level is significantly decreased chest x-ray improved patient will be transitioned to by mouth antibiotics. Patient and unhappy and not wanting to go home at this time due to concerns of increased swelling to lower extremity and patient's weakness patient admits that she has not been getting out of bed. Explained to patient that she needs to get out of bed to increase her physical mobility patient has been declining any referral to rehab at this time. Patient remains on Lasix 40 mg twice daily and switched to Cipro antibiotic pro-calcitonin improving to 0.33. Patient vital signs temp 97.5, heart rate 81, respiratory rate 20, blood pressure 104/67 with pulse ox 96% on 3 L 08/14/2023 patient was seen and examined on the medical floor she is alert and oriented 3 in no apparent distress there is no fever or chills no headache or dizziness no chest pain, she is still complaining of cough and shortness of breath with activity that is no nausea or vomiting no abdominal pain no diarrhea and no urinary symptoms. Patient was evaluated by by pulmonary and was cleared for discharge, she has been cleared by cardiology several days ago. She will be discharged to home today, she will have a course of Cipro, will follow in the office in the next few days. Plan - Discharge Summary Discharge Rx Participant: No New Discharge Prescriptions: New Ipratropium-Albuterol Nebulize [Duoneb 0.5 mg-3 mg/3 ml Soln] 3 ml INHALATION RT-QID 30 Days #120 each Nitroglycerin Sl Tabs [Nitrostat] 0.4 mg SUBLINGUAL Q5M PRN 30 Days #25 tab PRN Reason: Chest Pain Clopidogrel [Plavix] 75 mg PO DAILY 30 Days #30 tab Cyanocobalamin [Vitamin B-12] 1,000 mcg PO DAILY 90 Days #90 tab Ciprofloxacin HCl [Cipro] 500 mg PO BID 5 Days #10 tab Ferrous Sulfate [Feosol] 325 mg PO DAILY 30 Days #30 tab Furosemide [Lasix] 40 mg PO BID@0900,1600 60 Days #30 tab Nystatin 100,000 Unit/ml Susp [Mycostatin Oral Susp] 500,000 unit PO QID 10 Days #200 ml Nystatin 100,000 Unit/gm Powd [Mycostatin Powder] 1 applic TOPICAL BID 15 Days #100 each ALPRAZolam [Xanax] 0.25 mg PO Q6HR PRN 60 Days #30 tab PRN Reason: Mild Anxiety Continue metFORMIN HCL [Glucophage] 500 mg PO BID Aspirin EC [Ecotrin Low Dose] 81 mg PO BID Albuterol Sulfate [Proair Hfa] 2 puff INHALATION RT-Q6H PRN PRN Reason: Shortness Of Breath Acetaminophen [Tylenol 8 Hour] 650 mg PO Q8H PRN PRN Reason: Pain Cholecalciferol [Vitamin D3 (25 Mcg = 1000 Iu)] 25 mcg PO BID Pantoprazole [Protonix] 40 mg PO AC-BRKFST tab Docusate [Colace] 100 mg PO BID Montelukast [Singulair] 10 mg PO HS Dapagliflozin Propanediol [Farxiga] 10 mg PO DAILY tab Atorvastatin [Lipitor] 20 mg PO DAILY tab Metoprolol Tartrate [Lopressor] 25 mg PO BID oxyBUTYnin chloride [Ditropan] 5 mg PO BID Discontinued Furosemide [Lasix] 60 mg PO BID@0900,1600 Discharge Medication List Acetaminophen [Tylenol 8 Hour] 650 mg PO Q8H PRN 12/01/18 [History] Albuterol Sulfate [Proair Hfa] 2 puff INHALATION RT-Q6H PRN 12/01/18 [History] Aspirin EC [Ecotrin Low Dose] 81 mg PO BID 12/01/18 [History] metFORMIN HCL [Glucophage] 500 mg PO BID 12/01/18 [History] Cholecalciferol [Vitamin D3 (25 Mcg = 1000 Iu)] 25 mcg PO BID 04/24/23 [History] Atorvastatin [Lipitor] 20 mg PO DAILY tab 05/13/23 [Rx] Dapagliflozin Propanediol [Farxiga] 10 mg PO DAILY tab 05/13/23 [Rx] Pantoprazole [Protonix] 40 mg PO AC-BRKFST tab 05/13/23 [Rx] Docusate [Colace] 100 mg PO BID 08/05/23 [History] Metoprolol Tartrate [Lopressor] 25 mg PO BID 08/05/23 [History] Montelukast [Singulair] 10 mg PO HS 08/05/23 [History] oxyBUTYnin chloride [Ditropan] 5 mg PO BID 08/05/23 [History] ALPRAZolam [Xanax] 0.25 mg PO Q6HR PRN 60 Days #30 tab 08/14/23 [Rx] Ciprofloxacin HCl [Cipro] 500 mg PO BID 5 Days #10 tab 08/14/23 [Rx] Clopidogrel [Plavix] 75 mg PO DAILY 30 Days #30 tab 08/14/23 [Rx] Cyanocobalamin [Vitamin B-12] 1,000 mcg PO DAILY 90 Days #90 tab 08/14/23 [Rx] Ferrous Sulfate [Feosol] 325 mg PO DAILY 30 Days #30 tab 08/14/23 [Rx] Furosemide [Lasix] 40 mg PO BID@0900,1600 60 Days #30 tab 08/14/23 [Rx] Ipratropium-Albuterol Nebulize [Duoneb 0.5 mg-3 mg/3 ml Soln] 3 ml INHALATION RT-QID 30 Days #120 each 08/14/23 [Rx] Nitroglycerin Sl Tabs [Nitrostat] 0.4 mg SUBLINGUAL Q5M PRN 30 Days #25 tab 08/14/23 [Rx] Nystatin 100,000 Unit/gm Powd [Mycostatin Powder] 1 applic TOPICAL BID 15 Days #100 each 08/14/23 [Rx] Nystatin 100,000 Unit/ml Susp [Mycostatin Oral Susp] 500,000 unit PO QID 10 Days #200 ml 08/14/23 [Rx] Follow up Appointment(s)/Referral(s): [facility], [NON-STAFF] - Malik Carrasquillo MD [STAFF PHYSICIAN] - 1 Week Pat Angulo MD [Primary Care Provider] - 1-2 days
== END 2023-08-14 14:37 | disposition home health service (06) | DRG 981 ==
LOC: EC 16:14 → 3SCARD 20:16 → OBSVTOIN 08-07 12:25 → 4SSUR 08-12 18:16
PROVIDERS: ADMIT Internal Medicine; ATTEND Internal Medicine
PROC: 027034Z Dilation of Coronary Artery, One Artery with Drug-eluting Intraluminal Device, Percutaneous Approach (ICD-10-PCS; principal; 2023-08-07)
PROC: 4A023N8 Measurement of Cardiac Sampling and Pressure, Bilateral, Percutaneous Approach (ICD-10-PCS; 2023-08-07)
PROC: B2111ZZ Fluoroscopy of Multiple Coronary Arteries using Low Osmolar Contrast (ICD-10-PCS; 2023-08-07)
DX: J18.9 Pneumonia, unspecified organism (principal); J96.01 Acute respiratory failure with hypoxia; I50.32 Chronic diastolic (congestive) heart failure; Z68.41 Body mass index [BMI] 40.0-44.9, adult; E87.1 Hypo-osmolality and hyponatremia; E44.0 Moderate protein-calorie malnutrition; J44.0 Chronic obstructive pulmonary disease with (acute) lower respiratory infection; I25.10 Atherosclerotic heart disease of native coronary artery without angina pectoris; E66.01 Morbid (severe) obesity due to excess calories; E78.5 Hyperlipidemia, unspecified; D50.9 Iron deficiency anemia, unspecified; D51.9 Vitamin B12 deficiency anemia, unspecified; Z87.19 Personal history of other diseases of the digestive system; F41.9 Anxiety disorder, unspecified; I11.0 Hypertensive heart disease with heart failure; I27.20 Pulmonary hypertension, unspecified; J98.4 Other disorders of lung; Z79.84 Long term (current) use of oral hypoglycemic drugs; Z79.899 Other long term (current) drug therapy; Z86.718 Personal history of other venous thrombosis and embolism; Z87.01 Personal history of pneumonia (recurrent); Z98.51 Tubal ligation status; Z87.442 Personal history of urinary calculi; Z90.710 Acquired absence of both cervix and uterus
CPT/HCPCS: 36415; 71045; 71046; 76937; 80053; 82607; 82746; 83540; 83550; 83605; 83735; 83880; 84145; 84484; 85025; 85610; 85730; 87636; 92978; 93005; 93460; 94640; 94760; 96374; 99285

== ENCOUNTER 2023-11-03 18:35 | Inpatient (IN) | payer MEDICARE, BC ==
--- NOTE | 2023-11-03 19:33 | ED ---
SOB HPI - General Chief Complaint: Shortness of Breath Stated Complaint: Side Pain,DAKOTA Time Seen by Provider: 11/03/23 18:44 Source: EMS, RN notes reviewed, old records reviewed Mode of arrival: EMS Limitations: no limitations - History of Present Illness Initial Comments: This is a 73-year-old female complaining of multiple complaints including abdominal pain chest pain shortness of breath bilateral leg pain decreased activity or strength in lower extremities as well as increasing shortness of breath with exertion. History of same history of CHF MD Complaint: shortness of breath -: days(s), week(s) Severity: moderate Severity scale (1-10): 7 Quality: dull, aching Consistency: constant Improves With: nothing Worsens With: nothing Context: recent illness Associated Symptoms: chest pain, cough, sputum production Treatments Prior to Arrival: none - Related Data Home Medications Medication Instructions Recorded Confirmed Acetaminophen [Tylenol 8 Hour] 1,300 mg PO Q8H 12/01/18 11/03/23 Aspirin EC [Ecotrin Low Dose] 81 mg PO DAILY 12/01/18 11/03/23 metFORMIN HCL [Glucophage] 500 mg PO BID 12/01/18 11/03/23 Cholecalciferol [Vitamin D3 (25 100 mcg PO DAILY 04/24/23 11/03/23 Mcg = 1000 Iu)] Metoprolol Tartrate [Lopressor] 25 mg PO BID 08/05/23 11/03/23 Montelukast [Singulair] 10 mg PO HS 08/05/23 11/03/23 oxyBUTYnin chloride [Ditropan] 5 mg PO BID 08/05/23 11/03/23 Furosemide [Lasix] 40 mg PO BID@0900,1600 11/03/23 11/03/23 Multivit-Min/FA/Lycopen/Lutein 1 tab PO DAILY 11/03/23 11/03/23 [Centrum Silver Tablet] Pantoprazole [Protonix] 40 mg PO DAILY 11/03/23 11/03/23 Previous Rx's Medication Instructions Recorded Atorvastatin [Lipitor] 20 mg PO DAILY tab 05/13/23 Dapagliflozin Propanediol [Farxiga] 10 mg PO DAILY tab 05/13/23 Clopidogrel [Plavix] 75 mg PO DAILY 30 Days #30 tab 08/14/23 Cyanocobalamin [Vitamin B-12] 1,000 mcg PO DAILY 90 Days #90 tab 08/14/23 Ferrous Sulfate [Feosol] 325 mg PO DAILY 30 Days #30 tab 08/14/23 Allergies Allergy/AdvReac Type Severity Reaction Status Date / Time amoxicillin Allergy Rash/Hives Verified 11/03/23 21:14 dill weed Allergy Rash/Hives Uncoded 11/03/23 21:14 Review of Systems ROS Statement: Those systems with pertinent positive or pertinent negative responses have been documented in the HPI. ROS Other: All systems not noted in ROS Statement are negative. Past Medical History Past Medical History: Heart Failure, Diabetes Mellitus, Deep Vein Thrombosis (DV T), Eye Disorder, Osteoarthritis (OA), Pneumonia Additional Past Medical History / Comment(s): Seasonal allergies. Macular degeneration, Rt eye worse. Edema in legs, hx water blisters, wears jobst stockings. kidney stones. Hx blood clot in leg History of Any Multi-Drug Resistant Organisms: None Reported Past Surgical History: Hysterectomy, Tubal Ligation Additional Past Surgical History / Comment(s): Multiple Kidney stone removals, LITHOTRIPSY. Blood clot removal left thigh, placed stent lt groin 2012 est. Past Anesthesia/Blood Transfusion Reactions: Previous Problems w/ Anesthesia Additional Past Anesthesia/Blood Transfusion Reaction / Comment(s): difficulty with breathing when waking up from previous kidney stone surgery x1 Past Psychological History: No Psychological Hx Reported Smoking Status: Former smoker Past Alcohol Use History: None Reported Past Drug Use History: None Reported - Past Family History Mother Family Medical History: Cancer Additional Family Medical History / Comment(s): colon cancer Father Family Medical History: Cancer Additional Family Medical History / Comment(s): lung cancer Sister(s) Family Medical History: Cancer Additional Family Medical History / Comment(s): breast cancer Brother(s) Family Medical History: Cancer, Pulmonary Embolus Daughter(s) Additional Family Medical History / Comment(s): daughter developed blood clot to shoulder and neck after IV PICC line insertion, TIA. granddaughter hx blood clot to groin General Exam Limitations: no limitations General appearance: alert, in no apparent distress Head exam: Present: atraumatic, normocephalic, normal inspection Eye exam: Present: normal appearance, PERRL, EOMI. Absent: scleral icterus, conjunctival injection, periorbital swelling ENT exam: Present: normal exam, mucous membranes moist Neck exam: Present: normal inspection. Absent: tenderness, meningismus, lymphadenopathy Respiratory exam: Present: normal lung sounds bilaterally. Absent: respiratory distress, wheezes, rales, rhonchi, stridor Cardiovascular Exam: Present: regular rate, normal rhythm, normal heart sounds. Absent: systolic murmur, diastolic murmur, rubs, gallop, clicks GI/Abdominal exam: Present: soft, normal bowel sounds. Absent: distended, tenderness, guarding, rebound, rigid Extremities exam: Present: normal inspection, full ROM, normal capillary refill. Absent: tenderness, pedal edema, joint swelling, calf tenderness Back exam: Present: normal inspection Neurological exam: Present: alert, oriented X3, CN II-XII intact Psychiatric exam: Present: normal affect, normal mood Skin exam: Present: warm, dry, intact, normal color. Absent: rash Course Vital Signs 11/03/23 11/03/23 11/03/23 18:41 19:43 19:54 Temperature 97.7 F Pulse Rate 89 84 98 Respiratory 19 Rate Blood Pressure 124/67 O2 Sat by Pulse 97 Oximetry 11/03/23 11/03/23 11/04/23 20:40 22:00 01:47 Temperature Pulse Rate 87 98 98 Respiratory 18 18 18 Rate Blood Pressure 112/63 121/75 114/70 O2 Sat by Pulse 97 96 97 Oximetry - Reevaluation(s) Reevaluation #1: 11/03/23 19:31 Medical records reviewed Reevaluation #2: 11/03/23 19:31 Patient symptoms are improved here in the ER Reevaluation #3: 11/03/23 20:56 Informed of results and questions answered Reevaluation #4: Was pt. sent in by a medical professional or institution (, PA, BRIDGE MAINTENANCE WORKER, urgent care, hospital, or prison...) When possible be specific @ -no Did you speak to anyone other than the patient for history (EMS, parent, family, police, friend...)? What history was obtained from this source @ -no Did you review nursing and triage notes (agree or disagree)? Why? @ -agree Are old charts reviewed (outside hosp., previous admission, EMS record, old EKG, old radiological studies, urgent care reports/EKG's, prison records)? Report findings @ -yes Differential Diagnosis (chest pain, altered mental status, abdominal pain women, abdominal pain men, vaginal bleeding, weakness, fever, dyspnea, syncope, headache, dizziness, GI bleed, back pain, seizure, CVA, palpatations, mental health, musculoskeletal)? @ -prior EKG interpreted by me (3pts min.). @ -yes X-rays interpreted by me (1pt min.). @ -yes positive for pneumonia CT interpreted by me (1pt min.). @ -no U/S interpreted by me (1pt. min.). @ -no What testing was considered but not performed or refused? (CT, X-rays, U/S, labs)? Why? @ -none What meds were considered but not given or refused? Why? @ -none Did you discuss the management of the patient with other professionals (professionals i.e. , PA, BRIDGE MAINTENANCE WORKER, lab, RT, psych nurse, director of social services, television maintenance man, teacher, aeronautical engineering officer, case folder)? Give summary @ -no Was smoking cessation discussed for >3mins.? @ -no Were there social determinants of health that impacted care today? How? (Homelessness, low income, unemployed, alcoholism, drug addiction, transportation, low edu. Level, literacy, decrease access to med. care, fdc, rehab)? @ -none Was there de-escalation of care discussed even if they declined (Discuss DNR or withdrawal of care, Hospice)? DNR status @ -no What co-morbidities impacted this encounter? (DM, HTN, Smoking, COPD, CAD, Cancer, CVA, ARF, Chemo, Hep., AIDS, mental health diagnosis, sleep apnea, morbid obesity)? @ -none Was patient admitted / discharged? Hospital course, mention meds given and route, prescriptions, significant lab abnormalities, going to OR and other pertinent info. @ - 73 female to ER with chronic pain chronic abdominal pain cough and congestion left lower lobe pneumonia. Patient will be admitted for IV antibiotics Admitted Was critical care preformed (if so, how long)? @ -no Undiagnosed new problem with uncertain prognosis? @ -no Drug Therapy requiring intensive monitoring for toxicity (Heparin, Nitro, Insulin, Cardizem)? @ -no Were any procedures done? @ -no Diagnosis/symptom? @ -Left lower lobe pneumonia Acute, or Chronic, or Acute on Chronic? @ -Acute Uncomplicated (without systemic symptoms) or Complicated (systemic symptoms)? @ -Complicated Side effects of treatment? @ -no Exacerbation, Progression, or Severe Exacerbation? @ -exacerbation Poses a threat to life or bodily function? How? (Chest pain, [place], [place], pneumonia, PE, COPD, DKA, ARF, appy, cholecystitis, CVA, Diverticulitis, Homicidal, Suicidal, threat to staff... and all critical care pts) @ -yes extremes of age Reevaluation #5: Differential Dyspnea: Coronary syndrome, arrhythmia, tamponade, asthma, COPD, pulmonary embolism, pneumonia, pneumothorax, pulmonary effusion, anaphylaxis, diabetic ketoacidosis, flailed chest, pulmonary contusion, diaphragmatic rupture, anemia, neuromuscular, this is not meant to be an all-inclusive list. Differential Abdominal Pain Women: Appendicitis, Cholecystitis, diverticulosis, ischemic bowel, pancreatitis, hepatitis, UTI, gastroenteritis, AAA, incarcerated hernia, bowel obstruction, constipation, inflammatory bowel, hepatitis, peptic ulcer disease, splenic infarction, perforated viscus, vulvitis, ovarian torsion, PID, kidney stone, placenta abruption, this is not meant to be an all-inclusive list - Consultations Consultation #1: Spoke with Dr. Angulo who agrees to admit this patient Medical Decision Making - Medical Decision Making 73 female to ER with chronic pain chronic abdominal pain cough and congestion left lower lobe pneumonia. Patient will be admitted for IV antibiotics - Lab Data Result diagrams: 11/09/23 05:43 11/09/23 05:43 Lab Results 11/03/23 11/03/23 11/03/23 Range/Units 19:31 19:31 19:31 WBC 14.1 H (3.8-10.6) k/uL RBC 3.91 (3.80-5.40) m/uL Hgb 12.2 (11.4-16.0) gm/dL Hct 38.8 (34.0-46.0) % MCV 99.2 (80.0-100.0) fL MCH 31.1 (25.0-35.0) pg MCHC 31.3 (31.0-37.0) g/dL RDW 14.7 (11.5-15.5) % Plt Count 399 (150-450) k/uL MPV 8.0 Immature Gran % (Auto) % Absolute Nucleated RBC % Neutrophils % % Neutrophils % (Manual) 78 % Lymphocytes % % Lymphocytes % (Manual) 14 % Monocytes % % Monocytes % (Manual) 3 % Eosinophils % % Eosinophils % (Manual) 5 % Basophils % % Immature Gran # (0.00-0.04) X 10*3/uL Neutrophils # (1.80-7.70) X 10*3/uL Neutrophils # (Manual) 11.00 H (1.3-7.7) k/uL Lymphocytes # (0.90-5.00) X 10*3/uL Lymphocytes # (Manual) 1.97 (1.0-4.8) k/uL Monocytes # (0.20-1.00) X 10*3/uL Monocytes # (Manual) 0.42 (0-1.0) k/uL Eosinophils # (0.04-0.35) X 10*3/uL Eosinophils # (Manual) 0.71 H (0-0.7) k/uL Basophils # (0.00-0.10) X 10*3/uL Nucleated RBCs 0 (0-0) /100 WBC NRBC/100 WBC Diff (0.00-0.01) X 10*3/uL Manual Slide Review Performed Hypochromasia Moderate PT 11.3 (10.0-12.5) sec INR 1.0 (<1.2) APTT 25.7 (22.0-30.0) sec Sodium (137-145) mmol/L Potassium (3.5-5.1) mmol/L Chloride (98-107) mmol/L Carbon Dioxide (22-30) mmol/L Anion Gap mmol/L BUN (7-17) mg/dL Creatinine (0.52-1.04) mg/dL Est GFR (CKD-EPI) (>=60) Est GFR (CKD-EPI)AfAm (>60 ml/min/1.73 sqM) Est GFR (CKD-EPI)NonAf (>60 ml/min/1.73 sqM) BUN/Creatinine Ratio (12.00-20.00) Ratio Glucose (74-99) mg/dL POC Glucose (mg/dL) (70-110) mg/dL POC Glu Pet Sitting ID Plasma Lactic Acid Srinivasa 1.4 (0.7-2.0) mmol/L Calcium (8.4-10.2) mg/dL Phosphorus (2.4-5.1) mg/dL Magnesium (1.6-2.3) mg/dL Total Bilirubin (0.2-1.3) mg/dL AST (14-36) U/L ALT (4-34) U/L Alkaline Phosphatase (38-126) U/L Troponin I (0.000-0.034) ng/mL NT-Pro-B Natriuret Pep pg/mL Total Protein (6.3-8.2) g/dL Albumin (3.5-5.0) g/dL Globulin (1.6-3.3) g/dL Albumin/Globulin Ratio (1.60-3.17) Ratio Procalcitonin (0.02-0.09) ng/mL Urine Color Urine Appearance (Clear) Urine pH (5.0-8.0) Ur Specific [place] (1.001-1.035) Urine Protein (Negative) Urine Glucose (UA) (Negative) Urine Ketones (Negative) Urine Blood (Negative) Urine Nitrite (Negative) Urine Bilirubin (Negative) Urine Urobilinogen (<2.0) mg/dL Ur Leukocyte Esterase (Negative) Urine RBC (0-5) /hpf Urine WBC (0-5) /hpf Urine WBC Clumps (None) /hpf Ur Squamous Epith Cells (0-4) /hpf Urine Bacteria (None) /hpf Hyaline Casts (0-2) /lpf Urine Mucus (None) /hpf Urine Yeast (Budding) (None) /hpf Urine Legionella Ag (Negative) 11/03/23 11/03/23 11/03/23 Range/Units 20:34 20:34 21:30 WBC (3.8-10.6) k/uL RBC (3.80-5.40) m/uL Hgb (11.4-16.0) gm/dL Hct (34.0-46.0) % MCV (80.0-100.0) fL MCH (25.0-35.0) pg MCHC (31.0-37.0) g/dL RDW (11.5-15.5) % Plt Count (150-450) k/uL MPV Immature Gran % (Auto) % Absolute Nucleated RBC % Neutrophils % % Neutrophils % (Manual) % Lymphocytes % % Lymphocytes % (Manual) % Monocytes % % Monocytes % (Manual) % Eosinophils % % Eosinophils % (Manual) % Basophils % % Immature Gran # (0.00-0.04) X 10*3/uL Neutrophils # (1.80-7.70) X 10*3/uL Neutrophils # (Manual) (1.3-7.7) k/uL Lymphocytes # (0.90-5.00) X 10*3/uL Lymphocytes # (Manual) (1.0-4.8) k/uL Monocytes # (0.20-1.00) X 10*3/uL Monocytes # (Manual) (0-1.0) k/uL Eosinophils # (0.04-0.35) X 10*3/uL Eosinophils # (Manual) (0-0.7) k/uL Basophils # (0.00-0.10) X 10*3/uL Nucleated RBCs (0-0) /100 WBC NRBC/100 WBC Diff (0.00-0.01) X 10*3/uL Manual Slide Review Hypochromasia PT (10.0-12.5) sec INR (<1.2) APTT (22.0-30.0) sec Sodium 136 L (137-145) mmol/L Potassium 3.7 (3.5-5.1) mmol/L Chloride 104 (98-107) mmol/L Carbon Dioxide 28 (22-30) mmol/L Anion Gap 4 mmol/L BUN 14 (7-17) mg/dL Creatinine 0.56 (0.52-1.04) mg/dL Est GFR (CKD-EPI) (>=60) Est GFR (CKD-EPI)AfAm >90 (>60 ml/min/1.73 sqM) Est GFR (CKD-EPI)NonAf >90 (>60 ml/min/1.73 sqM) BUN/Creatinine Ratio (12.00-20.00) Ratio Glucose 93 (74-99) mg/dL POC Glucose (mg/dL) (70-110) mg/dL POC Glu Pet Sitting ID Plasma Lactic Acid Srinivasa (0.7-2.0) mmol/L Calcium 7.9 L (8.4-10.2) mg/dL Phosphorus (2.4-5.1) mg/dL Magnesium 1.4 L (1.6-2.3) mg/dL Total Bilirubin 0.9 (0.2-1.3) mg/dL AST 20 (14-36) U/L ALT 8 (4-34) U/L Alkaline Phosphatase 154 H (38-126) U/L Troponin I <0.012 <0.012 (0.000-0.034) ng/mL NT-Pro-B Natriuret Pep 2920 pg/mL Total Protein 5.8 L (6.3-8.2) g/dL Albumin 2.4 L (3.5-5.0) g/dL Globulin (1.6-3.3) g/dL Albumin/Globulin Ratio (1.60-3.17) Ratio Procalcitonin (0.02-0.09) ng/mL Urine Color Urine Appearance (Clear) Urine pH (5.0-8.0) Ur Specific [place] (1.001-1.035) Urine Protein (Negative) Urine Glucose (UA) (Negative) Urine Ketones (Negative) Urine Blood (Negative) Urine Nitrite (Negative) Urine Bilirubin (Negative) Urine Urobilinogen (<2.0) mg/dL Ur Leukocyte Esterase (Negative) Urine RBC (0-5) /hpf Urine WBC (0-5) /hpf Urine WBC Clumps (None) /hpf Ur Squamous Epith Cells (0-4) /hpf Urine Bacteria (None) /hpf Hyaline Casts (0-2) /lpf Urine Mucus (None) /hpf Urine Yeast (Budding) (None) /hpf Urine Legionella Ag (Negative) 11/03/23 11/03/23 11/04/23 Range/Units 23:53 23:53 04:35 WBC (3.8-10.6) k/uL RBC (3.80-5.40) m/uL Hgb (11.4-16.0) gm/dL Hct (34.0-46.0) % MCV (80.0-100.0) fL MCH (25.0-35.0) pg MCHC (31.0-37.0) g/dL RDW (11.5-15.5) % Plt Count (150-450) k/uL MPV Immature Gran % (Auto) % Absolute Nucleated RBC % Neutrophils % % Neutrophils % (Manual) % Lymphocytes % % Lymphocytes % (Manual) % Monocytes % % Monocytes % (Manual) % Eosinophils % % Eosinophils % (Manual) % Basophils % % Immature Gran # (0.00-0.04) X 10*3/uL Neutrophils # (1.80-7.70) X 10*3/uL Neutrophils # (Manual) (1.3-7.7) k/uL Lymphocytes # (0.90-5.00) X 10*3/uL Lymphocytes # (Manual) (1.0-4.8) k/uL Monocytes # (0.20-1.00) X 10*3/uL Monocytes # (Manual) (0-1.0) k/uL Eosinophils # (0.04-0.35) X 10*3/uL Eosinophils # (Manual) (0-0.7) k/uL Basophils # (0.00-0.10) X 10*3/uL Nucleated RBCs (0-0) /100 WBC NRBC/100 WBC Diff (0.00-0.01) X 10*3/uL Manual Slide Review Hypochromasia PT (10.0-12.5) sec INR (<1.2) APTT (22.0-30.0) sec Sodium (137-145) mmol/L Potassium (3.5-5.1) mmol/L Chloride (98-107) mmol/L Carbon Dioxide (22-30) mmol/L Anion Gap mmol/L BUN (7-17) mg/dL Creatinine (0.52-1.04) mg/dL Est GFR (CKD-EPI) (>=60) Est GFR (CKD-EPI)AfAm (>60 ml/min/1.73 sqM) Est GFR (CKD-EPI)NonAf (>60 ml/min/1.73 sqM) BUN/Creatinine Ratio (12.00-20.00) Ratio Glucose (74-99) mg/dL POC Glucose (mg/dL) (70-110) mg/dL POC Glu Pet Sitting ID Plasma Lactic Acid Srinivasa (0.7-2.0) mmol/L Calcium (8.4-10.2) mg/dL Phosphorus (2.4-5.1) mg/dL Magnesium (1.6-2.3) mg/dL Total Bilirubin (0.2-1.3) mg/dL AST (14-36) U/L ALT (4-34) U/L Alkaline Phosphatase (38-126) U/L Troponin I <0.012 (0.000-0.034) ng/mL NT-Pro-B Natriuret Pep pg/mL Total Protein (6.3-8.2) g/dL Albumin (3.5-5.0) g/dL Globulin (1.6-3.3) g/dL Albumin/Globulin Ratio (1.60-3.17) Ratio Procalcitonin 15.80 H (0.02-0.09) ng/mL Urine Color Urine Appearance (Clear) Urine pH (5.0-8.0) Ur Specific [place] (1.001-1.035) Urine Protein (Negative) Urine Glucose (UA) (Negative) Urine Ketones (Negative) Urine Blood (Negative) Urine Nitrite (Negative) Urine Bilirubin (Negative) Urine Urobilinogen (<2.0) mg/dL Ur Leukocyte Esterase (Negative) Urine RBC (0-5) /hpf Urine WBC (0-5) /hpf Urine WBC Clumps (None) /hpf Ur Squamous Epith Cells (0-4) /hpf Urine Bacteria (None) /hpf Hyaline Casts (0-2) /lpf Urine Mucus (None) /hpf Urine Yeast (Budding) (None) /hpf Urine Legionella Ag Negative (Negative) 11/04/23 11/04/23 11/04/23 Range/Units 04:35 07:13 07:13 WBC 16.04 H (3.8-10.6) k/uL RBC 3.91 L (3.80-5.40) m/uL Hgb 11.9 L (11.4-16.0) gm/dL Hct 39.3 (34.0-46.0) % MCV 100.5 H (80.0-100.0) fL MCH 30.4 (25.0-35.0) pg MCHC 30.3 L (31.0-37.0) g/dL RDW 14.5 (11.5-15.5) % Plt Count 483 H (150-450) k/uL MPV 9.7 Immature Gran % (Auto) 1.40 % Absolute Nucleated RBC 0 % Neutrophils % 82.8 % Neutrophils % (Manual) % Lymphocytes % 8.7 % Lymphocytes % (Manual) % Monocytes % 5.0 % Monocytes % (Manual) % Eosinophils % 1.7 % Eosinophils % (Manual) % Basophils % 0.4 % Immature Gran # 0.22 H (0.00-0.04) X 10*3/uL Neutrophils # 13.29 H (1.80-7.70) X 10*3/uL Neutrophils # (Manual) (1.3-7.7) k/uL Lymphocytes # 1.39 (0.90-5.00) X 10*3/uL Lymphocytes # (Manual) (1.0-4.8) k/uL Monocytes # 0.81 (0.20-1.00) X 10*3/uL Monocytes # (Manual) (0-1.0) k/uL Eosinophils # 0.27 (0.04-0.35) X 10*3/uL Eosinophils # (Manual) (0-0.7) k/uL Basophils # 0.06 (0.00-0.10) X 10*3/uL Nucleated RBCs (0-0) /100 WBC NRBC/100 WBC Diff 0 (0.00-0.01) X 10*3/uL Manual Slide Review Hypochromasia PT (10.0-12.5) sec INR (<1.2) APTT (22.0-30.0) sec Sodium 139 (137-145) mmol/L Potassium 3.6 (3.5-5.1) mmol/L Chloride 102 (98-107) mmol/L Carbon Dioxide 24.7 (22-30) mmol/L Anion Gap 12.30 H mmol/L BUN 10.2 (7-17) mg/dL Creatinine 0.6 (0.52-1.04) mg/dL Est GFR (CKD-EPI) 95 (>=60) Est GFR (CKD-EPI)AfAm (>60 ml/min/1.73 sqM) Est GFR (CKD-EPI)NonAf (>60 ml/min/1.73 sqM) BUN/Creatinine Ratio 17.00 (12.00-20.00) Ratio Glucose 99 (74-99) mg/dL POC Glucose (mg/dL) (70-110) mg/dL POC Glu Pet Sitting ID Plasma Lactic Acid Srinivasa (0.7-2.0) mmol/L Calcium 8.1 L (8.4-10.2) mg/dL Phosphorus 3.6 (2.4-5.1) mg/dL Magnesium 1.6 (1.6-2.3) mg/dL Total Bilirubin 0.3 (0.2-1.3) mg/dL AST 15 (14-36) U/L ALT 7 L (4-34) U/L Alkaline Phosphatase 163 H (38-126) U/L Troponin I (0.000-0.034) ng/mL NT-Pro-B Natriuret Pep pg/mL Total Protein 6.1 L (6.3-8.2) g/dL Albumin 2.6 L (3.5-5.0) g/dL Globulin 3.5 H (1.6-3.3) g/dL Albumin/Globulin Ratio 0.74 L (1.60-3.17) Ratio Procalcitonin (0.02-0.09) ng/mL Urine Color Light Yellow Urine Appearance Cloudy H (Clear) Urine pH 5.5 (5.0-8.0) Ur Specific [place] 1.016 (1.001-1.035) Urine Protein Trace H (Negative) Urine Glucose (UA) 2+ H (Negative) Urine Ketones Negative (Negative) Urine Blood Small H (Negative) Urine Nitrite Negative (Negative) Urine Bilirubin Negative (Negative) Urine Urobilinogen <2.0 (<2.0) mg/dL Ur Leukocyte Esterase Large H (Negative) Urine RBC 11 H (0-5) /hpf Urine WBC >182 H (0-5) /hpf Urine WBC Clumps Few H (None) /hpf Ur Squamous Epith Cells 6 H (0-4) /hpf Urine Bacteria Rare H (None) /hpf Hyaline Casts 8 H (0-2) /lpf Urine Mucus Rare H (None) /hpf Urine Yeast (Budding) Many H (None) /hpf Urine Legionella Ag (Negative) 11/04/23 11/04/23 11/05/23 Range/Units 11:03 20:07 04:29 WBC 14.28 H (3.8-10.6) k/uL RBC 3.50 L (3.80-5.40) m/uL Hgb 10.7 L (11.4-16.0) gm/dL Hct 35.4 L (34.0-46.0) % MCV 101.1 H (80.0-100.0) fL MCH 30.6 (25.0-35.0) pg MCHC 30.2 L (31.0-37.0) g/dL RDW 14.6 H (11.5-15.5) % Plt Count 481 H (150-450) k/uL MPV 10.5 Immature Gran % (Auto) 1.60 % Absolute Nucleated RBC 0 % Neutrophils % 77.4 % Neutrophils % (Manual) % Lymphocytes % 9.5 % Lymphocytes % (Manual) % Monocytes % 6.6 % Monocytes % (Manual) % Eosinophils % 4.6 % Eosinophils % (Manual) % Basophils % 0.3 % Immature Gran # 0.23 H (0.00-0.04) X 10*3/uL Neutrophils # 11.07 H (1.80-7.70) X 10*3/uL Neutrophils # (Manual) (1.3-7.7) k/uL Lymphocytes # 1.35 (0.90-5.00) X 10*3/uL Lymphocytes # (Manual) (1.0-4.8) k/uL Monocytes # 0.94 (0.20-1.00) X 10*3/uL Monocytes # (Manual) (0-1.0) k/uL Eosinophils # 0.65 H (0.04-0.35) X 10*3/uL Eosinophils # (Manual) (0-0.7) k/uL Basophils # 0.04 (0.00-0.10) X 10*3/uL Nucleated RBCs (0-0) /100 WBC NRBC/100 WBC Diff 0 (0.00-0.01) X 10*3/uL Manual Slide Review Hypochromasia PT (10.0-12.5) sec INR (<1.2) APTT (22.0-30.0) sec Sodium (137-145) mmol/L Potassium (3.5-5.1) mmol/L Chloride (98-107) mmol/L Carbon Dioxide (22-30) mmol/L Anion Gap mmol/L BUN (7-17) mg/dL Creatinine (0.52-1.04) mg/dL Est GFR (CKD-EPI) (>=60) Est GFR (CKD-EPI)AfAm (>60 ml/min/1.73 sqM) Est GFR (CKD-EPI)NonAf (>60 ml/min/1.73 sqM) BUN/Creatinine Ratio (12.00-20.00) Ratio Glucose (74-99) mg/dL POC Glucose (mg/dL) 208 H 120 H (70-110) mg/dL POC Glu Pet Sitting ID Brown, Yazid[employer] Mix, [place] Plasma Lactic Acid Srinivasa (0.7-2.0) mmol/L Calcium (8.4-10.2) mg/dL Phosphorus (2.4-5.1) mg/dL Magnesium (1.6-2.3) mg/dL Total Bilirubin (0.2-1.3) mg/dL AST (14-36) U/L ALT (4-34) U/L Alkaline Phosphatase (38-126) U/L Troponin I (0.000-0.034) ng/mL NT-Pro-B Natriuret Pep pg/mL Total Protein (6.3-8.2) g/dL Albumin (3.5-5.0) g/dL Globulin (1.6-3.3) g/dL Albumin/Globulin Ratio (1.60-3.17) Ratio Procalcitonin (0.02-0.09) ng/mL Urine Color Urine Appearance (Clear) Urine pH (5.0-8.0) Ur Specific [place] (1.001-1.035) Urine Protein (Negative) Urine Glucose (UA) (Negative) Urine Ketones (Negative) Urine Blood (Negative) Urine Nitrite (Negative) Urine Bilirubin (Negative) Urine Urobilinogen (<2.0) mg/dL Ur Leukocyte Esterase (Negative) Urine RBC (0-5) /hpf Urine WBC (0-5) /hpf Urine WBC Clumps (None) /hpf Ur Squamous Epith Cells (0-4) /hpf Urine Bacteria (None) /hpf Hyaline Casts (0-2) /lpf Urine Mucus (None) /hpf Urine Yeast (Budding) (None) /hpf Urine Legionella Ag (Negative) 11/05/23 11/05/23 Range/Units 04:29 06:02 WBC (3.8-10.6) k/uL RBC (3.80-5.40) m/uL Hgb (11.4-16.0) gm/dL Hct (34.0-46.0) % MCV (80.0-100.0) fL MCH (25.0-35.0) pg MCHC (31.0-37.0) g/dL RDW (11.5-15.5) % Plt Count (150-450) k/uL MPV Immature Gran % (Auto) % Absolute Nucleated RBC % Neutrophils % % Neutrophils % (Manual) % Lymphocytes % % Lymphocytes % (Manual) % Monocytes % % Monocytes % (Manual) % Eosinophils % % Eosinophils % (Manual) % Basophils % % Immature Gran # (0.00-0.04) X 10*3/uL Neutrophils # (1.80-7.70) X 10*3/uL Neutrophils # (Manual) (1.3-7.7) k/uL Lymphocytes # (0.90-5.00) X 10*3/uL Lymphocytes # (Manual) (1.0-4.8) k/uL Monocytes # (0.20-1.00) X 10*3/uL Monocytes # (Manual) (0-1.0) k/uL Eosinophils # (0.04-0.35) X 10*3/uL Eosinophils # (Manual) (0-0.7) k/uL Basophils # (0.00-0.10) X 10*3/uL Nucleated RBCs (0-0) /100 WBC NRBC/100 WBC Diff (0.00-0.01) X 10*3/uL Manual Slide Review Hypochromasia PT (10.0-12.5) sec INR (<1.2) APTT (22.0-30.0) sec Sodium 139 (137-145) mmol/L Potassium 3.5 (3.5-5.1) mmol/L Chloride 102 (98-107) mmol/L Carbon Dioxide 22.0 (22-30) mmol/L Anion Gap 15.00 H mmol/L BUN 9.3 (7-17) mg/dL Creatinine 0.6 (0.52-1.04) mg/dL Est GFR (CKD-EPI) 95 (>=60) Est GFR (CKD-EPI)AfAm (>60 ml/min/1.73 sqM) Est GFR (CKD-EPI)NonAf (>60 ml/min/1.73 sqM) BUN/Creatinine Ratio 15.50 (12.00-20.00) Ratio Glucose 106 (74-99) mg/dL POC Glucose (mg/dL) 101 (70-110) mg/dL POC Glu Pet Sitting ID Mix, [place] Plasma Lactic Acid Srin[place]asa (0.7-2.0) mmol/L Calcium 7.8 L (8.4-10.2) mg/dL Phosphorus (2.4-5.1) mg/dL Magnesium (1.6-2.3) mg/dL Total Bilirubin 0.2 L (0.2-1.3) mg/dL AST 17 (14-36) U/L ALT 6 L (4-34) U/L Alkaline Phosphatase 143 H (38-126) U/L Troponin I (0.000-0.034) ng/mL NT-Pro-B Natriuret Pep pg/mL Total Protein 5.7 L (6.3-8.2) g/dL Albumin 2.3 L (3.5-5.0) g/dL Globulin 3.4 H (1.6-3.3) g/dL Albumin/Globulin Ratio 0.68 L (1.60-3.17) Ratio Procalcitonin (0.02-0.09) ng/mL Urine Color Urine Appearance (Clear) Urine pH (5.0-8.0) Ur Specific [place] (1.001-1.035) Urine Protein (Negative) Urine Glucose (UA) (Negative) Urine Ketones (Negative) Urine Blood (Negative) Urine Nitrite (Negative) Urine Bilirubin (Negative) Urine Urobilinogen (<2.0) mg/dL Ur Leukocyte Esterase (Negative) Urine RBC (0-5) /hpf Urine WBC (0-5) /hpf Urine WBC Clumps (None) /hpf Ur Squamous Epith Cells (0-4) /hpf Urine Bacteria (None) /hpf Hyaline Casts (0-2) /lpf Urine Mucus (None) /hpf Urine Yeast (Budding) (None) /hpf Urine Legionella Ag (Negative) - EKG Data -: EKG Interpreted by Me (EKG is sinus 87 VA 168 QRS 84 QTc 432) - Radiology Data Radiology results: report reviewed (Is positive for pneumonia CT abdomen pelvis negative for acute disease), image reviewed Disposition Clinical Impression: UTI (urinary tract infection), CHF (congestive heart failure), Pneumonia, Chronic pain Disposition: ADMITTED IP TO THIS HOSP Condition: Fair Is patient prescribed a controlled substance at d/c from ED?: No
[2023-11-03] MEDS: IPRATROPIUM-ALBUTEROL 3 ML NEB INHALATION STA (19:42)
[2023-11-03 19:58] LABS: HCT 38.8 % (34.0-46.0); HGB 12.2 gm/dL (11.4-16.0); Hypochromasia Moderate; MCH 31.1 pg (25.0-35.0); MCHC 31.3 g/dL (31.0-37.0); MCV 99.2 fL (80.0-100.0); Platelet Count 399 k/uL (150-450); RBC 3.91 m/uL (3.80-5.40); RDW 14.7 % (11.5-15.5); WBC 14.1 k/uL (3.8-10.6)
--- NOTE | 2023-11-03 19:58 | XR ---
EXAMINATION TYPE: XR chest 1V portable DATE OF EXAM: 11/03/2023 COMPARISON: 08/07/2023 HISTORY: Shortness of breath TECHNIQUE: Single frontal view of the chest is obtained. FINDINGS: There is mild diffuse interstitial opacity suggestive of mild pulmonary vascular congestion and inter stitial edema. There is no pleural effusion or pneumothorax. There is no airspace consolidation. The osseous structures are intact. IMPRESSION: Findings most consistent with mild CHF. IMPRESSION: No acute process.
[2023-11-03] MEDS: HYDROmorphone 1 MG/ML 1 ML SYRINGE IVP STA (20:05)
[2023-11-03 20:25] LABS: Partial Thromboplastin Time 25.7 sec (22.0-30.0); Prothrombin Time 11.3 sec (10.0-12.5)
[2023-11-03] MEDS: traMADol 50 MG TAB PO STA (20:44)
--- NOTE | 2023-11-03 20:48 | CT ---
EXAMINATION TYPE: CT abdomen pelvis wo con DATE OF EXAM: 11/03/2023 COMPARISON: 05/09/2023 HISTORY: ABD PAIN/RENAL STONES CT DLP: 1035.4 mGycm Automated exposure control for dose reduction was used. TECHNIQUE: Helical acquisition of images was performed from the lung bases through the pelvis. FINDINGS: There is a small left lower lobe infiltrate and pleural effusion.. Gallbladder is normal and there is no gallstone, wall thickening, pericholecystic fluid or distention . There is no biliary ductal dilatation. There is no organomegaly of the liver, pancreas, spleen or adrenal glands. Pancreas is markedly atrop hic. There are 2 nonobstructing calcifications in the right kidney the largest of which is 11 mm. There are 2 nonobstructing calcifications in the left kidney the largest of which is 14 mm. The caliber of the abdominal aorta is normal and there is no retroperitoneal adenopathy or hemorrhage . There is a left common iliac artery stent. The bowel loops are normal in caliber is no evidence of obstruction. No inflammatory changes are iden tified in the mesentery. There is free intraperitoneal fluid surrounding the spleen. There is no pelvic mass, free fluid, abscess or adenopathy. There is surgical absence of the uterus. The osseous structures and soft tissues are unremarkable. IMPRESSION: 1. Small left lower lobe infiltrate and pleural effusion. 2. Small amount of free fluid surrounding the spleen. 3. Stable nonobstructing bilateral renal calcifications
[2023-11-03] MEDS ORDERED: NALOXONE 0.4 MG/ML 1 ML VIAL IV PRN (20:53)
[2023-11-03] MEDS ORDERED: PNEUMONIA PROTOCOL UTILIZED 1 EACH MISC PO PRN (20:53)
[2023-11-03 21:05] LABS: Eosinophils # (M) 0.71 k/uL (0-0.7); Lymphocytes # (M) 1.97 k/uL (1.0-4.8); Monocytes # (M) 0.42 k/uL (0-1.0); Neutrophils % (M) 78 %; Nucleated Red Blood Cells 0 /100 WBC (0-0); Total Cells Counted 100
[2023-11-03 21:38] LABS: ALT 8 U/L (4-34); AST 20 U/L (14-36); African American GFR (CKD) >90 (>60 ml/min/1.73 sqM); Albumin 2.4 g/dL (3.5-5.0); Alkaline Phosphatase 154 U/L (38-126); Anion Gap 4 mmol/L; Blood Urea Nitrogen 14 mg/dL (7-17); Calcium 7.9 mg/dL (8.4-10.2); Carbon Dioxide 28 mmol/L (22-30); Chloride 104 mmol/L (98-107); Glucose 93 mg/dL (74-99); Magnesium 1.4 mg/dL (1.6-2.3); Non-African American GFR(CKD) >90 (>60 ml/min/1.73 sqM); Potassium 3.7 mmol/L (3.5-5.1); Sodium 136 mmol/L (137-145); Total Bilirubin 0.9 mg/dL (0.2-1.3); Total Protein 5.8 g/dL (6.3-8.2)
[2023-11-03 21:44] LABS: NT-Pro-B-Type Natriuretic Pept 2920 pg/mL
[2023-11-03] MEDS: SODIUM CHLORIDE 0.9% 1,000 ML IV SCH (21:57)
[2023-11-04] MEDS: AZITHROMYCIN 500 MG in SODIUM CHLORIDE 0.9% 250 ML IVPB STA (00:10)
--- NOTE | 2023-11-04 02:30 | P.CNPUL ---
History of Present Illness Consult date: 11/04/23 Requesting physician: Henrik Cardenas Reason for consult: pleural effusion Chief complaint: Generalized weakness, right flank pain, recent treatment for UTI outpatient History of present illness: Patient is a 73-year-old white female with past medical history significant for congestive heart failure, kidney stones, coronary artery disease with recent PCI/stenting of the left circumflex artery, diabetes mellitus, DVT, obesity. Patient presented emergency room yesterday evening with multiple complaints. Approximately, 1 week ago she began to noticed right-sided flank pain with radiation to the right upper abdomen. Of note, she states that she was recently treated outpatient for urinary tract infection by her primary care provider, Dr. Angulo, and she completed her antibiotics approximately 1 week ago. She denies any further urinary complaints such as dysuria, urinary frequency, incontinence, hematuria. She does have history of bilateral kidney stones. Also, reports an isolated episode of nausea and vomiting and intermittent diarrhea. A CT of the abdomen and pelvis without contrast demonstrated stable nonobstructing bilateral renal calcifications. Otherwise, unremarkable for intrabdominal process. There was incidentally a small left lower lobe pleural effusion and likely atelectasis versus infiltrate. More recently, she has noticed increased shortness of breath with exertion. She has been generally weak and fatigued. Also, sleeping alot in the chair. She has bilateral lower extremity swelling. Denies any chest pain, heart palpitations, syncopal events. Patient has known chronic diastolic congestive heart failure with preserved left ventricular ejection fraction and secondary pulmonary hypertension. She takes Lasix 40 mg twice a day. She has not missed any doses. Chest x-ray demonstrates cardiomegaly with mild pulmonary vascular congestion and interstitial edema. NT proBNP elevated at 2900. Of note, she was recently hospitalized July, and treated for possible pneumonia. Initially, completed a course of IV cefepime and then ciprofloxacin. She does endorse a intermittent cough with mostly clear sputum, occasionally yellow in color. Denies any fevers, hemoptysis, chest pain. During the same hospitalization mentioned above, she also underwent heart catheterization on 08/06/2023, and received a stent to the mid left circumflex. She states she has been taking all of her medications as directed. CBC: WBC count 14.1, hemoglobin 12.2, hematocrit 38.8, platelets 399. CMP: Sodium 136, potassium 3.7, chloride 104, serum bicarb 28, BUN 14, creatinine 0.56, glucose 93. Lactic acid level 1.4. LFTs unremarkable. EKG shows normal sinus rhythm with nonspecific t wave changes. Troponin less than 0.012 x 2. She is currently in the emergency department, room 5. She is resting comfortably on the stretcher, on 3 L/min nasal cannula. SpO2 96%. Vital signs are stable. Review of Systems REVIEW OF SYSTEMS: CONSTITUTIONAL: Denies any recent significant weight loss or weight gain. EYES: Denies change in vision. EARS, NOSE, MOUTH, THROAT: Denies headaches, denies sore throat. CARDIOVASCULAR: Denies any chest pain, heart palpitations, lightheadedness, syncopal events. Admits increased lower extremity swelling. RESPIRATORY: See HPI GASTROINTESTINAL: See HPI GENITOURINARY: Denies recent treatment for urinary tract infection outpatient, completed all antibiotics. She has urinary frequency after taking Lasix. No other urinary complaints. MUSKULOSKELETAL: Denies pain, denies swelling. INTEGUMENTARY: Denies rash, denies eczema. NEUROLOGICAL: Denies recent memory loss, no recent seizure activity. PSYCHIATRIC: Denies anxiety, denies depression. HEMATOLOGIC/LYMPHATIC: Denies anemia, denies enlarged lymph node Past Medical History Past Medical History: Heart Failure, Diabetes Mellitus, Deep Vein Thrombosis (DVT), Eye Disorder, Osteoarthritis (OA), Pneumonia Additional Past Medical History / Comment(s): Seasonal allergies. Macular degeneration, Rt eye worse. Edema in legs, hx water blisters, wears jobst stockings. kidney stones. Hx blood clot in leg History of Any Multi-Drug Resistant Organisms: None Reported Past Surgical History: Hysterectomy, Tubal Ligation Additional Past Surgical History / Comment(s): Multiple Kidney stone removals, LITHOTRIPSY. Blood clot removal left thigh, placed stent lt groin 2012 est. Past Anesthesia/Blood Transfusion Reactions: Previous Problems w/ Anesthesia Additional Past Anesthesia/Blood Transfusion Reaction / Comment(s): difficulty with breathing when waking up from previous kidney stone surgery x1 Past Psychological History: No Psychological Hx Reported Smoking Status: Former smoker Past Alcohol Use History: None Reported Past Drug Use History: None Reported - Past Family History Mother Family Medical History: Cancer Additional Family Medical History / Comment(s): colon cancer Father Family Medical History: Cancer Additional Family Medical History / Comment(s): lung cancer Sister(s) Family Medical History: Cancer Additional Family Medical History / Comment(s): breast cancer Brother(s) Family Medical History: Cancer, Pulmonary Embolus Daughter(s) Additional Family Medical History / Comment(s): daughter developed blood clot to shoulder and neck after IV PICC line insertion, TIA. granddaughter hx blood clot to groin Medications and Allergies Home Medications Medication Instructions Recorded Confirmed Type Acetaminophen [Tylenol 8 Hour] 1,300 mg PO Q8H 12/01/18 11/03/23 History Aspirin EC [Ecotrin Low Dose] 81 mg PO DAILY 12/01/18 11/03/23 History metFORMIN HCL [Glucophage] 500 mg PO BID 12/01/18 11/03/23 History Cholecalciferol [Vitamin D3 (25 100 mcg PO DAILY 04/24/23 11/03/23 History Mcg = 1000 Iu)] Atorvastatin [Lipitor] 20 mg PO DAILY tab 05/13/23 11/03/23 Rx Dapagliflozin Propanediol [Farxiga] 10 mg PO DAILY tab 05/13/23 11/03/23 Rx Metoprolol Tartrate [Lopressor] 25 mg PO BID 08/05/23 11/03/23 History Montelukast [Singulair] 10 mg PO HS 08/05/23 11/03/23 History oxyBUTYnin chloride [Ditropan] 5 mg PO BID 08/05/23 11/03/23 History Clopidogrel [Plavix] 75 mg PO DAILY 30 Days #30 tab 08/14/23 11/03/23 Rx Cyanocobalamin [Vitamin B-12] 1,000 mcg PO DAILY 90 Days #90 tab 08/14/23 11/03/23 Rx Ferrous Sulfate [Feosol] 325 mg PO DAILY 30 Days #30 tab 08/14/23 11/03/23 Rx Furosemide [Lasix] 40 mg PO BID@0900,1600 11/03/23 11/03/23 History Multivit-Min/FA/Lycopen/Lutein 1 tab PO DAILY 11/03/23 11/03/23 History [Centrum Silver Tablet] Pantoprazole [Protonix] 40 mg PO DAILY 11/03/23 11/03/23 History Allergies Allergy/AdvReac Type Severity Reaction Status Date / Time amoxicillin Allergy Rash/Hives Verified 11/03/23 21:14 dill weed Allergy Rash/Hives Uncoded 11/03/23 21:14 Physical Exam Vitals: Vital Signs Temp Pulse Resp BP Pulse Ox 11/03/23 22:00 98 18 121/75 96 11/03/23 20:40 87 18 112/63 97 11/03/23 19:54 98 11/03/23 19:43 84 11/03/23 18:41 97.7 F 89 19 124/67 97 Intake and Output 11/03/23 11/03/23 11/04/23 14:59 22:59 06:59 Other: Weight 113.398 kg GENERAL EXAM: Alert, 73-year-old morbidly obese white female, comfortable in no apparent distress. HEAD: Normocephalic and atraumatic EYES: Normal reaction of pupils, equal size. NOSE: Clear with pink turbinates. THROAT: No erythema or exudates. NECK: No masses, no JVD. CHEST: No chest wall deformity. LUNGS: Equal air entry with bibasilar inspiratory crackles. On 3 L/min nasal cannula. No conversational dyspnea or accessory muscle use while at rest CVS: S1 and S2 normal with no audible murmur, regular rhythm. No extra heart sounds ABDOMEN: No hepatosplenomegaly, active bowel sounds, no guarding or rigidity. SPINE: No scoliosis or deformity SKIN: No rashes CENTRAL NERVOUS SYSTEM: No focal deficits, tone is normal in all 4 extremities. EXTREMITIES: There is bilateral lower extremity 1+ pitting edema. No clubbing, or cyanosis. Peripheral pulses are intact. Results - Laboratory Findings CBC and BMP: 11/04/23 07:13 11/04/23 07:13 PT/INR, D-dimer PT 11.3 sec (10.0-12.5) 11/03/23 19:31 INR 1.0 (<1.2) 11/03/23 19:31 Abnormal lab findings: Abnormal Labs 11/03/23 11/03/23 19:31 20:34 WBC 14.1 H Neutrophils # (Manual) 11.00 H Eosinophils # (Manual) 0.71 H Sodium 136 L Calcium 7.9 L Magnesium 1.4 L Alkaline Phosphatase 154 H Total Protein 5.8 L Albumin 2.4 L - Diagnostic Findings Chest x-ray: image reviewed Assessment and Plan Assessment: Acute hypoxemic respiratory failure, likely secondary to mild exacerbation of diastolic congestive heart failure. Chest x-ray demonstrates cardiomegaly with mild pulmonary vascular congestion and interstitial edema. NT proBNP elevated at 2900. Abdominal CT demonstrated incidental small left lower lobe pleural effusion and possible atelectasis. Pneumonia and parapneumonic effusion felt less likely. Right flank pain, with history of bilateral kidney stones. CT of the abdomen and pelvis without contrast demonstrated stable nonobstructing bilateral renal calcifications. Unremarkable for acute intra-abdominal process Recent outpatient treatment for urinary tract infection, reportedly completed entire course of antibiotics Coronary artery disease with recent history of PCI/stenting of the left circumflex artery on 08/06/2023 Chronic diastolic heart failure, patient is known to have a preserved left ventr icular ejection fraction, severe pulmonary hypertension, and moderate to severe tricuspid regurgitation Diabetes mellitus type 2 History of hyperlipidemia History of DVT History of pneumonia, secondary to Pseudomonas Morbid obesity, with a BMI of 40.4 kg/m Plan: Patient's medications, labs, imaging reviewed Continue supplemental oxygen to maintain oxygen saturation of 92% or greater Continue Lasix 40 mg twice daily Left-sided pleural effusion not large enough for thoracentesis at this time Continue empiric antibiotics Check procalcitonin level Check urinalysis Home medications resumed We will continue to follow I have personally seen and examined the patient, performed the documentation and the assessment and plan as written. Number of minutes spent on the visit:20 This is a joint evaluation that was done along with the nurse practitioner. This evaluation was done more than 30 minutes. The current presentation is typical for an underlying urine tract infection. The patient has an elevated white cell count of 16. Procalcitonin level is also elevated at 15.8. UA is a bnormal and the patient has multiple white cell counts and WBC clumps and many bacteria and yeast. The patient was started on IV Rocephin. No clear indication for pneumonia. The chest x-ray findings are essentially nonspecific and there is no clear indication of any airspace disease or pulmonary infiltrates. There is no acute process and a CAT scan of the abdomen and pelvis showed that the lung bases are essentially clear and there are some atelectatic change in lung bases along with a small left-sided pleural effusion. There is nonobstructive bilateral renal stones without evidence of any hydronephrosis. Awaiting urine cultures. Currently afebrile. Breathing is nonlabored. Hemodynamic stable on 3 L of oxygen by nasal cannula. Pending further cultures. Will continue to follow. As per the pleural effusion on the left. This is very small and not amenable for thoracentesis. Time with Patient: Greater than 30
[2023-11-04] MEDS: traMADol 50 MG TAB PO PRN (03:14)
[2023-11-04] MEDS: ONDANSETRON 4 MG/2 ML VIAL IVP PRN (04:55)
[2023-11-04 06:20] LABS: Appearance,Urine Cloudy (Clear); Bacteria,Urine Rare /hpf; Bilirubin,Urine Negative (Negative); Blood,Urine Small (Negative); Budding Yeast,Urine Many /hpf; Color,Urine Light Yellow; Glucose,Urine (UA) 2+ (Negative); Hyaline Casts,Urine 8 /lpf (0-2); Ketones,Urine Negative (Negative); Leukocyte Esterase,Urine Large (Negative); Mucus,Urine Rare /hpf; Nitrite,Urine Negative (Negative); PH, Urine 5.5 (5.0-8.0); Protein,Urine Trace (Negative); RBC,Urine 11 /hpf (0-5); Specific Gravity,Urine 1.016 (1.001-1.035); Squamous Epithelial Cell,Urine 6 /hpf (0-4); Urobilinogen,Urine <2.0 mg/dL (<2.0); WBC,Urine >182 /hpf (0-5)
[2023-11-04] MEDS: oxyBUTYnin chloride 5 MG TAB PO SCH (09:24)
[2023-11-04] MEDS: DAPAGLIFLOZIN PROPANEDIOL 10 MG TABLET PO SCH (09:24)
[2023-11-04] MEDS: METOPROLOL TARTRATE 25 MG TAB PO SCH (09:24)
[2023-11-04] MEDS: ASPIRIN 81 MG PO SCH (09:24)
[2023-11-04] MEDS: CYANOCOBALAMIN 500 MCG TAB PO SCH (09:24)
[2023-11-04] MEDS: PANTOPRAZOLE 40 MG TABLET PO SCH (09:24)
[2023-11-04] MEDS: CLOPIDOGREL 75 MG TAB PO SCH (09:24)
[2023-11-04] MEDS: FERROUS SULFATE 325 MG TAB PO SCH (09:24)
[2023-11-04] MEDS: ATORVASTATIN 20 MG TAB PO SCH (09:24)
[2023-11-04] MEDS: FUROSEMIDE 40 MG TAB PO SCH (09:27)
--- NOTE | 2023-11-04 10:43 | P.HPIM ---
History of Present Illness H&P Date: 11/04/23 This is a 73-year-old female patient who presented to the ER with concerns of chest and abdominal pain that she believes is secondary from pneumonia. Patient reports she was recently treated for UTI outpatient reports that she has had increased weakness and shortness of breath over the past week. Patient has a past medical history of CHF, diabetes mellitus, DVT, I disorder, osteoarthritis, obesity and ex-smoker. Chest x-ray completed in ER showing no acute process. CT of abdomen and pelvis completed showing small left lower lobe infiltrate and pleural effusion small amount of free fluid surrounding the spleen stable nonobstructing bilateral renal calcifications. Troponins negative 3. UA showing positive for urinary tract infection. ProCalcitonin also elevated at 15.8. Patient was started on IV antibiotics Rocephin and Zithromax. Creatinine 0.56 bun 14 BNP elevated 2920. At this time pulmonary cardiology services will be consulted. Sputum culture ordered. Blood culture ordered. Current vital signs temp 98.7, heart rate 86, respiratory rate 17, blood pressure 111/62 with pulse ox of 92% on 3 L Review of Systems Please refer to HPI otherwise unremarkable Past Medical History Past Medical History: Heart Failure, Diabetes Mellitus, Deep Vein Thrombosis (DVT), Eye Disorder, Osteoarthritis (OA), Pneumonia Additional Past Medical History / Comment(s): Seasonal allergies. Macular d egeneration, Rt eye worse. Edema in legs, hx water blisters, wears jobst stockings. kidney stones. Hx blood clot in leg History of Any Multi-Drug Resistant Organisms: None Reported Past Surgical History: Hysterectomy, Tubal Ligation Additional Past Surgical History / Comment(s): Multiple Kidney stone removals, LITHOTRIPSY. Blood clot removal left thigh, placed stent lt groin 2012 est. Past Anesthesia/Blood Transfusion Reactions: Previous Problems w/ Anesthesia Additional Past Anesthesia/Blood Transfusion Reaction / Comment(s): difficulty with breathing when waking up from previous kidney stone surgery x1 Past Psychological History: No Psychological Hx Reported Smoking Status: Former smoker Past Alcohol Use History: None Reported Past Drug Use History: None Reported - Past Family History Mother Family Medical History: Cancer Additional Family Medical History / Comment(s): colon cancer Father Family Medical History: Cancer Additional Family Medical History / Comment(s): lung cancer Sister(s) Family Medical History: Cancer Additional Family Medical History / Comment(s): breast cancer Brother(s) Family Medical History: Cancer, Pulmonary Embolus Daughter(s) Additional Family Medical History / Comment(s): daughter developed blood clot to shoulder and neck after IV PICC line insertion, TIA. granddaughter hx blood clot to groin Medications and Allergies Home Medications Medication Instructions Recorded Confirmed Type Acetaminophen [Tylenol 8 Hour] 1,300 mg PO Q8H 12/01/18 11/03/23 History Aspirin EC [Ecotrin Low Dose] 81 mg PO DAILY 12/01/18 11/03/23 History metFORMIN HCL [Glucophage] 500 mg PO BID 12/01/18 11/03/23 History Cholecalciferol [Vitamin D3 (25 100 mcg PO DAILY 04/24/23 11/03/23 History Mcg = 1000 Iu)] Atorvastatin [Lipitor] 20 mg PO DAILY tab 05/13/23 11/03/23 Rx Dapagliflozin Propanediol [Farxiga] 10 mg PO DAILY tab 05/13/23 11/03/23 Rx Metoprolol Tartrate [Lopressor] 25 mg PO BID 08/05/23 11/03/23 History Montelukast [Singulair] 10 mg PO HS 08/05/23 11/03/23 History oxyBUTYnin chloride [Ditropan] 5 mg PO BID 08/05/23 11/03/23 History Clopidogrel [Plavix] 75 mg PO DAILY 30 Days #30 tab 08/14/23 11/03/23 Rx Cyanocobalamin [Vitamin B-12] 1,000 mcg PO DAILY 90 Days #90 tab 08/14/23 11/03/23 Rx Ferrous Sulfate [Feosol] 325 mg PO DAILY 30 Days #30 tab 08/14/23 11/03/23 Rx Furosemide [Lasix] 40 mg PO BID@0900,1600 11/03/23 11/03/23 History Multivit-Min/FA/Lycopen/Lutein 1 tab PO DAILY 11/03/23 11/03/23 History [Centrum Silver Tablet] Pantoprazole [Protonix] 40 mg PO DAILY 11/03/23 11/03/23 History Allergies Allergy/AdvReac Type Severity Reaction Status Date / Time amoxicillin Allergy Rash/Hives Verified 11/03/23 21:14 dill weed Allergy Rash/Hives Uncoded 11/03/23 21:14 Physical Exam Vitals: Vital Signs Temp Pulse Pulse Resp BP BP Pulse Ox 11/04/23 08:36 92 L 11/04/23 08:00 19 11/04/23 07:00 98.7 F 86 17 111/62 94 L 11/04/23 02:14 98.2 F 108 H 20 127/72 98 11/04/23 01:47 98 18 114/70 97 11/03/23 22:00 98 18 121/75 96 11/03/23 20:40 87 18 112/63 97 11/03/23 19:54 98 11/03/23 19:43 84 11/03/23 18:41 97.7 F 89 19 124/67 97 Intake and Output 11/03/23 11/04/23 11/04/23 22:59 06:59 14:59 Output Total 20 Balance -20 Output: Urine 20 Other: Weight 113.398 kg 113.398 kg Head normocephalic Neck supple Lungs clear to auscultation bilaterally no wheezing or crackles Heart regular rate and rhythm S1-S2, no rub or gallop Abdomen is soft nontender nondistended positive bowel sounds no hepatosplenomegaly Extremities no edema Neuro alert and orientated to 3 Results CBC & Chem 7: 11/03/23 19:31 11/03/23 20:34 Labs: Abnormal Lab Results - Last 24 Hours (Table) 11/03/23 11/03/23 11/03/23 Range/Units 19:31 20:34 23:53 WBC 14.1 H (3.8-10.6) k/uL Neutrophils # (Manual) 11.00 H (1.3-7.7) k/uL Eosinophils # (Manual) 0.71 H (0-0.7) k/uL Sodium 136 L (137-145) mmol/L Calcium 7.9 L (8.4-10.2) mg/dL Magnesium 1.4 L (1.6-2.3) mg/dL Alkaline Phosphatase 154 H (38-126) U/L Total Protein 5.8 L (6.3-8.2) g/dL Albumin 2.4 L (3.5-5.0) g/dL Procalcitonin 15.80 H (0.02-0.09) ng/mL Urine Appearance (Clear) Urine Protein (Negative) Urine Glucose (UA) (Negative) Urine Blood (Negative) Ur Leukocyte Esterase (Negative) Urine RBC (0-5) /hpf Urine WBC (0-5) /hpf Urine WBC Clumps (None) /hpf Ur Squamous Epith Cells (0-4) /hpf Urine Bacteria (None) /hpf Hyaline Casts (0-2) /lpf Urine Mucus (None) /hpf Urine Yeast (Budding) (None) /hpf 11/04/23 Range/Units 04:35 WBC (3.8-10.6) k/uL Neutrophils # (Manual) (1.3-7.7) k/uL Eosinophils # (Manual) (0-0.7) k/uL Sodium (137-145) mmol/L Calcium (8.4-10.2) mg/dL Magnesium (1.6-2.3) mg/dL Alkaline Phosphatase (38-126) U/L Total Protein (6.3-8.2) g/dL Albumin (3.5-5.0) g/dL Procalcitonin (0.02-0.09) ng/mL Urine Appearance Cloudy H (Clear) Urine Protein Trace H (Negative) Urine Glucose (UA) 2+ H (Negative) Urine Blood Small H (Negative) Ur Leukocyte Esterase Large H (Negative) Urine RBC 11 H (0-5) /hpf Urine WBC >182 H (0-5) /hpf Urine WBC Clumps Few H (None) /hpf Ur Squamous Epith Cells 6 H (0-4) /hpf Urine Bacteria Rare H (None) /hpf Hyaline Casts 8 H (0-2) /lpf Urine Mucus Rare H (None) /hpf Urine Yeast (Budding) Many H (None) /hpf Assessment and Plan Assessment: 1.Chest pain and shortness of breath possibly secondary to acute exacerbation of diastolic congestive heart failure and/or pneumonia 2.Urinary tract infection. Patient did complete outpatient treatment will order urine culture 3. Acute on chronic diastolic congestive heart failure 4. Possible pneumonia seen on computed tomography scan with elevated calcitonin 5. History of coronary artery disease with recent history of PCI to the left circumflex in July 2023 6. History of diabetes mellitus type 2 7. History of hyperlipidemia 8. History of DVT 9. History of previous pneumonia secondary to Pseudomonas DVT prophylaxis Lovenox. GI prophylaxis Protonix Pulmonary cardiology services consulted Patient started on IV antibiotics Sputum urine and blood cultures ordered Repeat labs ordered PT OT service is consulted Time with Patient: Greater than 30 (Greater than 60% of the total time spent in counseling and coordination of care)
[2023-11-04 11:04] LABS: Glucose,Whole Blood 208 mg/dL (70-110)
[2023-11-04 11:18] LABS: Basophils # (A) 0.06 X 10*3/uL (0.00-0.10); Basophils % (A) 0.4 %; Eosinophils # (A) 0.27 X 10*3/uL (0.04-0.35); Eosinophils % (A) 1.7 %; HCT 39.3 % (37.2-46.3); HGB 11.9 g/dL (12.0-15.0); Lymphocytes # (A) 1.39 X 10*3/uL (0.90-5.00); Lymphocytes % (A) 8.7 %; MCH 30.4 pg (27.0-32.0); MCHC 30.3 g/dL (32.0-37.0); MCV 100.5 FL (80.0-97.0); Mean Platelet Volume 9.7 FL (9.5-12.2); Monocytes # (A) 0.81 X 10*3/uL (0.20-1.00); NRBC Per 100 WBC 0 X 10*3/uL (0.00-0.01); Neutrophils # (A) 13.29 X 10*3/uL (1.80-7.70); Neutrophils % (A) 82.8 %; Platelet Count 483 X 10*3/uL (140-440); RBC 3.91 X 10*6/uL (4.10-5.20); RDW 14.5 % (11.5-14.5); WBC 16.04 X 10*3/uL (4.50-10.00)
[2023-11-04 11:32] LABS: Blood Urea Nitrogen 10.2 mg/dL (9.0-27.0); Chloride 102 mmol/L (96-109); Glucose 99 mg/dL (70-110); Potassium 3.6 mmol/L (3.5-5.5); Sodium 139 mmol/L (135-145)
[2023-11-04 11:33] LABS: ALT 7 U/L (8-44); AST 15 U/L (13-35); Albumin 2.6 g/dL (3.8-4.9); Albumin/Globulin Ratio 0.74 Ratio (1.60-3.17); Alkaline Phosphatase 163 U/L (41-126); Calcium 8.1 mg/dL (8.7-10.3); Carbon Dioxide 24.7 mmol/L (21.6-31.8); Globulin 3.5 g/dL (1.6-3.3); Magnesium 1.6 mg/dL (1.5-2.4); Phosphorus 3.6 mg/dL (2.4-5.1); Total Bilirubin 0.3 mg/dL (0.3-1.2); Total Protein 6.1 g/dL (6.2-8.2)
--- NOTE | 2023-11-04 14:05 | US ---
EXAMINATION TYPE: US kidneys/renal and bladder DATE OF EXAM: 11/04/2023 COMPARISON: NONE CLINICAL INDICATION: Female, 73 years old with history of UTI; UTI exam limited due to body habitus EXAM MEASUREMENTS: Right Kidney: 11.7 x 4.9 x 4.2 cm Left Kidney: 8.1 x 5.4 x 5.3 cm Right Kidney: Hypoechoic area upper pole 7.4 x 4.7 x 7.1 cm. Echogenic area lower pole. Left Kidney: Hypoechoic area lower pole 2.9 x 3.0 x 2.1 cm. Bladder: Not fully distended There is no evidence for hydronephrosis at this point in time. No nephrolithiasis is seen. No solid masses are identified. The urinary bladder is anechoic. Bilateral ureteral jets are seen. IMPRESSION: Renal cystic changes.
--- NOTE | 2023-11-04 14:17 | P.CRDCN ---
History of Present Illness Consult date: 11/04/23 Consult reason: congestive heart failure History of present illness: This is a 73-year-old female patient of Dr. Carrasquillo with past medical history of diabetes mellitus type 2, pulmonary hypertension, tricuspid regurgitation, chronic diastolic heart failure, hypertension, dyslipidemia, history of DVT, coronary artery disease. Patient has a recent hospitalization in August 05 underwent cardiac catheterization with Dr. Carrasquillo which revealed pulmonary hypertension, calcified right and left coronary systems, critical disease involving the mid left circumflex status post stenting of the left circumflex. Intermediate disease involving the distal LAD and hazy calcified lesion. Patient has been started on Plavix aspirin, continue atorvastatin. Patient has subsequent follow-up in the office on 08/28 and plan was to continue current medication regime. Patient presented to the hospital due to dyspnea on exertion. She denies shortness of breath at rest. She always sleeps on 2 pillows at home, no change. She has had decreased appetite. She also presented with abdominal pain found to have a urinary tract infection and started on antibiotics. Patient states that she has lost 70 pounds since April unintentionally. Blood pressure and heart rate have been stable. EKG sinus rhythm no acute ST changes Chest x-ray: Mild CHF, no acute process CT of the abdomen and pelvis reveals small left lower lobe infiltrate and pleural effusion. Small amount of free fluid surrounding the spleen. Stable nonobstructing bilateral renal calcifications. Laboratory studies: WBC 16, hemoglobin 11.9, platelet count 483. Sodium 139, potassium 3.6, BUN 10 and creatinine 0.6. Procalcitonin 15.8. Troponin negative x 3. proBNP 2920. Home cardiac medications: Aspirin 81 mg daily, atorvastatin 20 mg daily, Plavix 75 mg daily, Farxiga 10 mg daily, Lasix 40 mg twice daily, Lopressor 25 mg twice daily. Echocardiogram performed 04/25/2023 reveals normal EF, moderate to severe TR, severe pulmonary hypertension. Cardiac catheterization performed on 08/06/[address] Carrasquillo that revealed pulmonary hypertension, calcified right and left coronary systems, critical disease involving the mid left circumflex status post stenting of the left circumflex. Intermediate disease involving the distal LAD and hazy calcified lesion. Review Of Systems: At the time of my exam: CONSTITUTIONAL: Denies fever or chills. + Fatigue, + weakness, shakiness. HEENT: Denies blurred vision, vision changes, or eye pain. Denies hemoptysis CARDIOVASCULAR: Denies chest pain. Denies orthopnea. Denies PND. Denies palpitations RESPIRATORY: Denies shortness of breath. No cough. Denies sputum production. GASTROINTESTINAL: Denies abdominal pain. Denies nausea or vomiting. HEMATOLOGIC: Denies bleeding disorders. GENITOURINARY: Denies any blood in urine. SKIN: Denies pruitis. Denies rash. Physical examination: Gen: This is a 73-year-old morbidly obese female in no acute distress VS: reviewed HEENT: Head is atraumatic, normocephalic. Pupils equal, round. Sclerae is anicteric. NECK: Supple. No JVD. LUNGS: Diminished breath sounds bilaterally. No intercostal retractions. HEART: Regular rate and rhythm. Systolic murmur. ABDOMEN: Soft No tenderness. EXTREMITIES: 1+ lower extremity edema. No calf tenderness. NEUROLOGICAL: Patient is awake, alert and oriented x3. Assessment: Dyspnea on exertion Mild acute on chronic diastolic heart failure Urinary tract infection Bilateral kidney stones Coronary artery disease with recent stenting of the left circumflex 08/06/2023 Pulmonary hypertension Hypertension Dyslipidemia Moderate to severe TR Unintentional weight loss of 70 pounds since April Plan: Continue patient's home cardiac medications Start patient on IV Lasix 40 mg daily Monitor WILNER, daily weights, electrolytes and renal function Obtain 2-D echocardiogram and Doppler study to assess cardiac structure and function Further recommendations to follow based upon clinical course Thank you kindly for this consultation. Nurse practitioner note has been reviewed, I agree with documented findings and plan of care. Patient was seen and examined. Past Medical History Past Medical History: Heart Failure, Diabetes Mellitus, Deep Vein Thrombosis (DVT), Eye Disorder, Osteoarthritis (OA), Pneumonia Additional Past Medical History / Comment(s): Seasonal allergies. Macular deg eneration, Rt eye worse. Edema in legs, hx water blisters, wears jobst stockings. kidney stones. Hx blood clot in leg History of Any Multi-Drug Resistant Organisms: None Reported Past Surgical History: Hysterectomy, Tubal Ligation Additional Past Surgical History / Comment(s): Multiple Kidney stone removals, LITHOTRIPSY. Blood clot removal left thigh, placed stent lt groin 2012 est. Past Anesthesia/Blood Transfusion Reactions: Previous Problems w/ Anesthesia Additional Past Anesthesia/Blood Transfusion Reaction / Comment(s): difficulty with breathing when waking up from previous kidney stone surgery x1 Past Psychological History: No Psychological Hx Reported Smoking Status: Former smoker Past Alcohol Use History: None Reported Past Drug Use History: None Reported - Past Family History Mother Family Medical History: Cancer Additional Family Medical History / Comment(s): colon cancer Father Family Medical History: Cancer Additional Family Medical History / Comment(s): lung cancer Sister(s) Family Medical History: Cancer Additional Family Medical History / Comment(s): breast cancer Brother(s) Family Medical History: Cancer, Pulmonary Embolus Daughter(s) Additional Family Medical History / Comment(s): daughter developed blood clot to shoulder and neck after IV PICC line insertion, TIA. granddaughter hx blood clot to groin Medications and Allergies Home Medications Medication Instructions Recorded Confirmed Type Acetaminophen [Tylenol 8 Hour] 1,300 mg PO Q8H 12/01/18 11/03/23 History Aspirin EC [Ecotrin Low Dose] 81 mg PO DAILY 12/01/18 11/03/23 History metFORMIN HCL [Glucophage] 500 mg PO BID 12/01/18 11/03/23 History Cholecalciferol [Vitamin D3 (25 100 mcg PO DAILY 04/24/23 11/03/23 History Mcg = 1000 Iu)] Atorvastatin [Lipitor] 20 mg PO DAILY tab 05/13/23 11/03/23 Rx Dapagliflozin Propanediol [Farxiga] 10 mg PO DAILY tab 05/13/23 11/03/23 Rx Metoprolol Tartrate [Lopressor] 25 mg PO BID 08/05/23 11/03/23 History Montelukast [Singulair] 10 mg PO HS 08/05/23 11/03/23 History oxyBUTYnin chloride [Ditropan] 5 mg PO BID 08/05/23 11/03/23 History Clopidogrel [Plavix] 75 mg PO DAILY 30 Days #30 tab 08/14/23 11/03/23 Rx Cyanocobalamin [Vitamin B-12] 1,000 mcg PO DAILY 90 Days #90 tab 08/14/23 11/03/23 Rx Ferrous Sulfate [Feosol] 325 mg PO DAILY 30 Days #30 tab 08/14/23 11/03/23 Rx Furosemide [Lasix] 40 mg PO BID@0900,1600 11/03/23 11/03/23 History Multivit-Min/FA/Lycopen/Lutein 1 tab PO DAILY 11/03/23 11/03/23 History [Centrum Silver Tablet] Pantoprazole [Protonix] 40 mg PO DAILY 11/03/23 11/03/23 History Allergies Allergy/AdvReac Type Severity Reaction Status Date / Time amoxicillin Allergy Rash/Hives Verified 11/03/23 21:14 dill weed Allergy Rash/Hives Uncoded 11/03/23 21:14 Physical Exam Vitals: Vital Signs Temp Pulse Pulse Resp BP BP Pulse Ox 11/04/23 13:36 98.0 F 89 17 118/78 97 11/04/23 08:36 92 L 11/04/23 08:00 19 11/04/23 07:00 98.7 F 86 17 111/62 94 L 11/04/23 02:14 98.2 F 108 H 20 127/72 98 11/04/23 01:47 98 18 114/70 97 11/03/23 22:00 98 18 121/75 96 11/03/23 20:40 87 18 112/63 97 11/03/23 19:54 98 11/03/23 19:43 84 11/03/23 18:41 97.7 F 89 19 124/67 97 Intake and Output 11/03/23 11/04/23 11/04/23 22:59 06:59 14:59 Output Total 20 Balance -20 Output: Urine 20 Other: Weight 113.398 kg 113.398 kg Results 11/04/23 07:13 11/04/23 07:13 Cardiac Enzymes 11/03/23 11/03/23 11/03/23 Range/Units 20:34 20:34 21:30 AST 20 (14-36) U/L Troponin I <0.012 <0.012 (0.000-0.034) ng/mL 11/03/23 11/04/23 Range/Units 23:53 07:13 AST 15 (14-36) U/L Troponin I <0.012 (0.000-0.034) ng/mL Coagulation 11/03/23 Range/Units 19:31 PT 11.3 (10.0-12.5) sec APTT 25.7 (22.0-30.0) sec CBC 06/10/24 06/11/24 Range/Units 19:31 07:13 WBC 14.1 H 16.04 H (3.8-10.6) k/uL RBC 3.91 3.91 L (3.80-5.40) m/uL Hgb 12.2 11.9 L (11.4-16.0) gm/dL Hct 38.8 39.3 (34.0-46.0) % Plt Count 399 483 H (150-450) k/uL Comprehensive Metabolic Panel 11/03/23 11/04/23 Range/Units 20:34 07:13 Sodium 136 L 139 (137-145) mmol/L Potassium 3.7 3.6 (3.5-5.1) mmol/L Chloride 104 102 (98-107) mmol/L Carbon Dioxide 28 24.7 (22-30) mmol/L BUN 14 10.2 (7-17) mg/dL Creatinine 0.56 0.6 (0.52-1.04) mg/dL Glucose 93 99 (74-99) mg/dL Calcium 7.9 L 8.1 L (8.4-10.2) mg/dL AST 20 15 (14-36) U/L ALT 8 7 L (4-34) U/L Alkaline Phosphatase 154 H 163 H (38-126) U/L Total Protein 5.8 L 6.1 L (6.3-8.2) g/dL Albumin 2.4 L 2.6 L (3.5-5.0) g/dL Current Medications Generic Name Dose Route Start Last Admin Trade Name Freq PRN Reason Stop Dose Admin Albuterol/Ipratropium 3 ml 11/03/23 20:53 Ipratropium-Albuterol 3 Ml Neb INHALATION RT-Q4H PRN shortness of breath Aspirin 81 mg 11/04/23 09:00 11/04/23 09:24 Aspirin 81 Mg PO 81 mg DAILY GUS Administration Atorvastatin Calcium 20 mg 11/04/23 09:00 11/04/23 09:24 Atorvastatin 20 Mg Tab PO 20 mg DAILY GSU Administration Azithromycin 500 mg 11/04/23 21:00 Azithromycin 500 Mg Tab PO 11/05/23 21:01 HS [facility] Protocol Clopidogrel Bisulfate 75 mg 11/04/23 09:00 11/04/23 09:24 Clopidogrel 75 Mg Tab PO 75 mg DAILY GUS Administration Cyanocobalamin 1,000 mcg 11/04/23 09:00 11/04/23 09:24 Cyanocobalamin 500 Mcg Tab PO 1,000 mcg DAILY GUS Administration Dapagliflozin 10 mg 11/04/23 09:00 11/04/23 09:24 Dapagliflozin Propanediol 10 Mg Tablet PO 10 mg DAILY GUS Administration Enoxaparin Sodium 40 mg 11/05/23 09:00 Enoxaparin 40 Mg/0.4 Ml Syringe SQ DAILY GUS Ferrous Sulfate 325 mg 11/04/23 09:00 11/04/23 09:24 Ferrous Sulfate 325 Mg Tab PO 325 mg DAILY GUS Administration Furosemide 40 mg 11/04/23 09:00 11/04/23 09:27 Furosemide 40 Mg Tab PO 40 mg BID@0900,1600 GUS Administration Sodium Chloride 1,000 mls @ 20 mls/hr 11/03/23 21:00 11/03/23 21:57 Saline 0.9% IV 20 mls/hr .Q24H GUS Administration Ceftriaxone Sodium 2 gm/ 50 mls @ 100 mls/hr 11/04/23 09:00 11/04/23 09:24 Sodium Chloride IVPB 11/07/23 09:29 100 mls/hr Q24HR GUS Administration Protocol Metoprolol Tartrate 25 mg 11/04/23 09:00 11/04/23 09:24 Metoprolol Tartrate 25 Mg Tab PO 25 mg BID GUS Administration Miscellaneous Information 1 each 11/03/23 20:53 Pneumonia Protocol Utilized 1 Each Misc PO ONCE PRN Per Protocol Montelukast Sodium 10 mg 11/04/23 21:00 Montelukast 10 Mg Tab PO HS GUS Naloxone HCl 0.2 mg 11/03/23 20:53 Naloxone 0.4 Mg/Ml 1 Ml Vial IV Q2M PRN Opioid Reversal Ondansetron HCl 4 mg 11/03/23 20:53 11/04/23 04:55 Ondansetron 4 Mg/2 Ml Vial IVP 4 mg Q8HR PRN Administration Nausea And Vomiting Oxybutynin Chloride 5 mg 11/04/23 09:00 11/04/23 09:24 Oxybutynin Chloride 5 Mg Tab PO 5 mg BID GUS Administration Pantoprazole Sodium 40 mg 11/04/23 09:00 11/04/23 09:24 Pantoprazole 40 Mg Tablet PO 40 mg DAILY GUS Administration Tramadol HCl 50 mg 11/04/23 03:08 11/04/23 09:34 Tramadol 50 Mg Tab PO 50 mg Q6H PRN Administration Pain Control Intake and Output 11/03/23 11/04/23 11/04/23 22:59 06:59 14:59 Output Total 20 Balance -20 Output: Urine 20 Other: Weight 113.398 kg 113.398 kg 11/04/23 07:13 11/04/23 07:13
[2023-11-04] MEDS: FUROSEMIDE 10 MG/ML 4 ML VIAL IV SCH (15:27)
[2023-11-04 20:08] LABS: Glucose,Whole Blood 120 mg/dL (70-110)
[2023-11-04] MEDS: AZITHROMYCIN 500 MG TAB PO SCH (20:26)
[2023-11-04] MEDS: MONTELUKAST 10 MG TAB PO SCH (20:26)
[2023-11-04] MEDS: IPRATROPIUM-ALBUTEROL 3 ML NEB INHALATION PRN (20:39)
[2023-11-05 06:03] LABS: Glucose,Whole Blood 101 mg/dL (70-110)
[2023-11-05] MEDS: ENOXAPARIN 40 MG/0.4 ML SYRINGE SQ SCH (08:36)
[2023-11-05 08:48] LABS: Basophils # (A) 0.04 X 10*3/uL (0.00-0.10); Basophils % (A) 0.3 %; Eosinophils # (A) 0.65 X 10*3/uL (0.04-0.35); Eosinophils % (A) 4.6 %; HCT 35.4 % (37.2-46.3); HGB 10.7 g/dL (12.0-15.0); Lymphocytes # (A) 1.35 X 10*3/uL (0.90-5.00); Lymphocytes % (A) 9.5 %; MCH 30.6 pg (27.0-32.0); MCHC 30.2 g/dL (32.0-37.0); MCV 101.1 FL (80.0-97.0); Mean Platelet Volume 10.5 FL (9.5-12.2); Monocytes # (A) 0.94 X 10*3/uL (0.20-1.00); Monocytes % (A) 6.6 %; NRBC Per 100 WBC 0 X 10*3/uL (0.00-0.01); Neutrophils # (A) 11.07 X 10*3/uL (1.80-7.70); Neutrophils % (A) 77.4 %; Platelet Count 481 X 10*3/uL (140-440); RDW 14.6 % (11.5-14.5); WBC 14.28 X 10*3/uL (4.50-10.00)
[2023-11-05 10:11] LABS: ALT 6 U/L (8-44); AST 17 U/L (13-35); Albumin 2.3 g/dL (3.8-4.9); Albumin/Globulin Ratio 0.68 Ratio (1.60-3.17); Alkaline Phosphatase 143 U/L (41-126); Blood Urea Nitrogen 9.3 mg/dL (9.0-27.0); Calcium 7.8 mg/dL (8.7-10.3); Chloride 102 mmol/L (96-109); Globulin 3.4 g/dL (1.6-3.3); Glucose 106 mg/dL (70-110); Potassium 3.5 mmol/L (3.5-5.5); Sodium 139 mmol/L (135-145); Total Bilirubin 0.2 mg/dL (0.3-1.2); Total Protein 5.7 g/dL (6.2-8.2)
--- NOTE | 2023-11-05 10:47 | P.PN ---
Subjective Progress Note Date: 11/05/23 This is a 73-year-old female patient who presented to the ER with concerns of chest and abdominal pain that she believes is secondary from pneumonia. Patient reports she was recently treated for UTI outpatient reports that she has had increased weakness and shortness of breath over the past week. Patient has a past medical history of CHF, diabetes mellitus, DVT, I disorder, osteoarthritis, obesity and ex-smoker. Chest x-ray completed in ER showing no acute process. CT of abdomen and pelvis completed showing small left lower lobe infiltrate and pleural effusion small amount of free fluid surrounding the spleen stable nonobstructing bilateral renal calcifications. Troponins negative 3. UA show ing positive for urinary tract infection. ProCalcitonin also elevated at 15.8. Patient was started on IV antibiotics Rocephin and Zithromax. Creatinine 0.56 bun 14 BNP elevated 2920. At this time pulmonary cardiology services will be consulted. Sputum culture ordered. Blood culture ordered. Current vital signs temp 98.7, heart rate 86, respiratory rate 17, blood pressure 111/62 with pulse ox of 92% on 3 L On 11/05/2023 patient's alert and oriented 3. Patient reports generalized weakness and pain. Patient remains on IV Rocephin and Zithromax. Patient also started on IV Lasix per cardiology. Patient denies chest pain.Current vital signs temp 98.1, heart rate 11, respiratory rate 16, blood pressure 122/63 with pulse ox 96% on room air Objective - Vital Signs Vital signs: Vital Signs Temp 98.1 F 11/05/23 07:00 Pulse 101 H 11/05/23 07:00 Resp 16 11/05/23 07:00 BP 122/63 11/05/23 07:00 Pulse Ox 95 11/05/23 08:08 FiO2 Intake & Output 11/04/23 11/05/23 11/05/23 18:59 06:59 18:59 Intake Total 50 Output Total 250 Balance 50 -250 Intake: Intake, IV Titration 50 Amount cefTRIAXone 2 gm In 50 Sodium Chloride 0.9% 50 ml @ 100 mls/hr IVPB Q24HR [facility] Rx#:[id number] Output: Urine 250 Other: Voiding Method External Catheter # Voids 3 - Exam Head normocephalic Neck supple Lungs clear to auscultation bilaterally no wheezing or crackles Heart regular rate and rhythm S1-S2, no rub or gallop Abdomen is soft nontender nondistended positive bowel sounds no hepato splenomegaly Extremities no edema Neuro alert and orientated to 3 - Labs CBC & Chem 7: 11/05/23 04:29 11/05/23 04:29 Labs: Abnormal Lab Results - Last 24 Hours (Table) 11/04/23 11/04/23 11/04/23 Range/Units 07:13 07:13 11:03 WBC 16.04 H (4.50-10.00) X 10*3/uL RBC 3.91 L (4.10-5.20) X 10*6/uL Hgb 11.9 L (12.0-15.0) g/dL Hct (37.2-46.3) % MCV 100.5 H (80.0-97.0) FL MCHC 30.3 L (32.0-37.0) g/dL RDW (11.5-14.5) % Plt Count 483 H (140-440) X 10*3/uL Immature Gran # 0.22 H (0.00-0.04) X 10*3/uL Neutrophils # 13.29 H (1.80-7.70) X 10*3/uL Eosinophils # (0.04-0.35) X 10*3/uL Anion Gap 12.30 H (4.00-12.00) mmol/L POC Glucose (mg/dL) 208 H (70-110) mg/dL Calcium 8.1 L (8.7-10.3) mg/dL Total Bilirubin (0.3-1.2) mg/dL ALT 7 L (8-44) U/L Alkaline Phosphatase 163 H (41-126) U/L Total Protein 6.1 L (6.2-8.2) g/dL Albumin 2.6 L (3.8-4.9) g/dL Globulin 3.5 H (1.6-3.3) g/dL Albumin/Globulin Ratio 0.74 L (1.60-3.17) Ratio 11/04/23 11/05/23 11/05/23 Range/Units 20:07 04:29 04:29 WBC 14.28 H (4.50-10.00) X 10*3/uL RBC 3.50 L (4.10-5.20) X 10*6/uL Hgb 10.7 L (12.0-15.0) g/dL Hct 35.4 L (37.2-46.3) % MCV 101.1 H (80.0-97.0) FL MCHC 30.2 L (32.0-37.0) g/dL RDW 14.6 H (11.5-14.5) % Plt Count 481 H (140-440) X 10*3/uL Immature Gran # 0.23 H (0.00-0.04) X 10*3/uL Neutrophils # 11.07 H (1.80-7.70) X 10*3/uL Eosinophils # 0.65 H (0.04-0.35) X 10*3/uL Anion Gap 15.00 H (4.00-12.00) mmol/L POC Glucose (mg/dL) 120 H (70-110) mg/dL Calcium 7.8 L (8.7-10.3) mg/dL Total Bilirubin 0.2 L (0.3-1.2) mg/dL ALT 6 L (8-44) U/L Alkaline Phosphatase 143 H (41-126) U/L Total Protein 5.7 L (6.2-8.2) g/dL Albumin 2.3 L (3.8-4.9) g/dL Globulin 3.4 H (1.6-3.3) g/dL Albumin/Globulin Ratio 0.68 L (1.60-3.17) Ratio Microbiology - Last 24 Hours (Table) 11/03/23 21:15 Blood Culture - Preliminary Blood 11/03/23 21:30 Blood Culture - Preliminary Blood Assessment and Plan Assessment: 1.Chest pain and shortness of breath possibly secondary to acute exacerbation of diastolic congestive heart failure and/or pneumonia 2.Urinary tract infection. Patient did complete outpatient treatment will order urine culture 3. Acute on chronic diastolic congestive heart failure 4. Possible pneumonia seen on computed tomography scan with elevated calcitonin 5. History of coronary artery disease with recent history of PCI to the left circumflex in July 2023 6. History of diabetes mellitus type 2 7. History of hyperlipidemia 8. History of DVT 9. History of previous pneumonia secondary to Pseudomonas DVT prophylaxis Lovenox. GI prophylaxis Protonix Pulmonary cardiology services consulted Patient started on IV antibiotics Sputum urine and blood cultures ordered Repeat labs ordered PT OT service is consulted
[2023-11-05 12:13] LABS: Glucose,Whole Blood 124 mg/dL (70-110)
--- NOTE | 2023-11-05 15:21 | P.PN ---
Subjective Progress Note Date: 11/05/23 Consult reason: congestive heart failure History of present illness: This is a 73-year-old female patient of Dr. Carrasquillo with past medical history of diabetes mellitus type 2, pulmonary hypertension, tricuspid regurgitation, chronic diastolic heart failure, hypertension, dyslipidemia, history of DVT, coronary artery disease. Patient has a recent hospitalization in August 05 underwent cardiac catheterization with Dr. Carrasquillo which revealed pulmonary hypertension, calcified right and left coronary systems, critical disease involving the mid left circumflex status post stenting of the left circumflex. Intermediate disease involving the distal LAD and hazy calcified lesion. Patient has been started on Plavix aspirin, continue atorvastatin. Patient has subsequent follow-up in the office on 08/28 and plan was to continue current medication regime. Patient presented to the hospital due to dyspnea on exertion. She denies shortness of breath at rest. She always sleeps on 2 pillows at home, no change. She has had decreased appetite. She also presented with abdominal pain found to have a urinary tract infection and started on antibiotics. Patient states that she has lost 70 pounds since April unintentionally. Blood pressure and heart rate have been stable. EKG sinus rhythm no acute ST changes Chest x-ray: Mild CHF, no acute process CT of the abdomen and pelvis reveals small left lower lobe infiltrate and pleural effusion. Small amount of free fluid surrounding the spleen. Stable nonobstructing bilateral renal calcifications. Laboratory studies: WBC 16, hemoglobin 11.9, platelet count 483. Sodium 139, potassium 3.6, BUN 10 and creatinine 0.6. Procalcitonin 15.8. Troponin negative x 3. proBNP 2920. Home cardiac medications: Aspirin 81 mg daily, atorvastatin 20 mg daily, Plavix 75 mg daily, Farxiga 10 mg daily, Lasix 40 mg twice daily, Lopressor 25 mg twice daily. Echocardiogram performed 04/25/2023 reveals normal EF, moderate to severe TR, severe pulmonary hypertension. Cardiac catheterization performed on 08/06/[address] Carrasquillo that revealed pulmonary hypertension, calcified right and left coronary systems, critical d isease involving the mid left circumflex status post stenting of the left circumflex. Intermediate disease involving the distal LAD and hazy calcified lesion. 11/04 Patient is seen today in follow-up. She states her breathing is much improved from yesterday. She did not have any problems overnight. She is able to lay flat in bed. Patient has been started on IV Lasix 40 mg daily. Patient has a negative fluid balance this morning. Blood pressure 122/63, heart rate 101, pulse ox 96% on 3 L nasal cannula. Repeat blood work reveals WBC 14, hemoglobin 10.7. BUN 9.3 and creatinine 0.6. Echocardiogram has been obtained and report is pending. Physical examination: Gen: This is a 73-year-old morbidly obese female in no acute distress VS: reviewed HEENT: Head is atraumatic, normocephalic. Pupils equal, round. Sclerae is anicteric. NECK: Supple. No JVD. LUNGS: Diminished breath sounds bilaterally. No intercostal retractions. HEART: Regular rate and rhythm. Systolic murmur. ABDOMEN: Soft No tenderness. EXTREMITIES: Minimal lower extremity edema. No calf tenderness. NEUROLOGICAL: Patient is awake, alert and oriented x3. Assessment: Dyspnea on exertion Mild acute on chronic diastolic heart failure Urinary tract infection Bilateral kidney stones Coronary artery disease with recent stenting of the left circumflex 08/06/2023 Pulmonary hypertension Hypertension Dyslipidemia Moderate to severe TR Unintentional weight loss of 70 pounds since April Plan: Continue patient's home cardiac medications Transition IV Lasix to oral 60 mg in the morning and 40 mg in the afternoon Monitor WILNER, daily weights, electrolytes and renal function Obtain 2-D echocardiogram and Doppler study to assess cardiac structure and function Patient is cleared from cardiology for discharge later today. She may follow-up with Dr. Carrasquillo in 1 to 2 weeks. Nurse practitioner note has been reviewed, I agree with documented findings and plan of care. Patient was seen and examined. Objective - Vital Signs Vital signs: Vital Signs Temp 97.6 F 11/05/23 14:32 Pulse 97 11/05/23 14:32 Resp 17 11/05/23 14:32 BP 104/62 11/05/23 14:32 Pulse Ox 93 L 11/05/23 14:32 FiO2 Intake & Output 11/04/23 11/05/23 11/05/23 18:59 06:59 18:59 Intake Total 50 Output Total 250 1200 Balance 50 -250 -1200 Intake: Intake, IV Titration 50 Amount cefTRIAXone 2 gm In 50 Sodium Chloride 0.9% 50 ml @ 100 mls/hr IVPB Q24HR [facility] Rx#:[id number] Output: Urine 250 1200 Other: Voiding Method External Catheter External Catheter # Voids 3 - Labs CBC & Chem 7: 11/05/23 04:29 11/05/23 04:29 Labs: Abnormal Lab Results - Last 24 Hours (Table) 11/04/23 11/05/23 11/05/23 Range/Units 20:07 04:29 04:29 WBC 14.28 H (4.50-10.00) X 10*3/uL RBC 3.50 L (4.10-5.20) X 10*6/uL Hgb 10.7 L (12.0-15.0) g/dL Hct 35.4 L (37.2-46.3) % MCV 101.1 H (80.0-97.0) FL MCHC 30.2 L (32.0-37.0) g/dL RDW 14.6 H (11.5-14.5) % Plt Count 481 H (140-440) X 10*3/uL Immature Gran # 0.23 H (0.00-0.04) X 10*3/uL Neutrophils # 11.07 H (1.80-7.70) X 10*3/uL Eosinophils # 0.65 H (0.04-0.35) X 10*3/uL Anion Gap 15.00 H (4.00-12.00) mmol/L POC Glucose (mg/dL) 120 H (70-110) mg/dL Calcium 7.8 L (8.7-10.3) mg/dL Total Bilirubin 0.2 L (0.3-1.2) mg/dL ALT 6 L (8-44) U/L Alkaline Phosphatase 143 H (41-126) U/L Total Protein 5.7 L (6.2-8.2) g/dL Albumin 2.3 L (3.8-4.9) g/dL Globulin 3.4 H (1.6-3.3) g/dL Albumin/Globulin Ratio 0.68 L (1.60-3.17) Ratio 11/05/23 Range/Units 12:12 WBC (4.50-10.00) X 10*3/uL RBC (4.10-5.20) X 10*6/uL Hgb (12.0-15.0) g/dL Hct (37.2-46.3) % MCV (80.0-97.0) FL MCHC (32.0-37.0) g/dL RDW (11.5-14.5) % Plt Count (140-440) X 10*3/uL Immature Gran # (0.00-0.04) X 10*3/uL Neutrophils # (1.80-7.70) X 10*3/uL Eosinophils # (0.04-0.35) X 10*3/uL Anion Gap (4.00-12.00) mmol/L POC Glucose (mg/dL) 124 H (70-110) mg/dL Calcium (8.7-10.3) mg/dL Total Bilirubin (0.3-1.2) mg/dL ALT (8-44) U/L Alkaline Phosphatase (41-126) U/L Total Protein (6.2-8.2) g/dL Albumin (3.8-4.9) g/dL Globulin (1.6-3.3) g/dL Albumin/Globulin Ratio (1.60-3.17) Ratio Microbiology - Last 24 Hours (Table) 11/04/23 15:40 Gram Stain - Preliminary Sputum Sputum Culture - Preliminary 11/03/23 21:15 Blood Culture - Preliminary Blood 11/03/23 21:30 Blood Culture - Preliminary Blood
--- NOTE | 2023-11-05 15:28 | P.PN ---
Subjective Progress Note Date: 11/05/23 Patient is a 73-year-old white female with past medical history significant for congestive heart failure, kidney stones, coronary artery disease with recent PCI/stenting of the left circumflex artery, diabetes mellitus, DVT, obesity. Patient presented emergency room yesterday evening with multiple complaints. Approximately, 1 week ago she began to noticed right-sided flank pain with radiation to the right upper abdomen. Of note, she states that she was recently treated outpatient for urinary tract infection by her primary care provider, Dr. Angulo, and she completed her antibiotics approximately 1 week ago. She denies any further urinary complaints such as dysuria, urinary frequency, incontinence, hematuria. She does have history of bilateral kidney stones. Also, reports an isolated episode of nausea and vomiting and intermittent diarrhea. A CT of the abdomen and pelvis without contrast demonstrated stable nonobstructing bilateral renal calcifications. Otherwise, unremarkable for intrabdominal process. There was incidentally a small left lower lobe pleural effusion and likely atelectasis versus infiltrate. More recently, she has noticed increased shortness of breath with exertion. She has been generally weak and fatigued. Also, sleeping alot in the chair. She has bilateral lower extremity swelling. Denies any chest pain, heart palpitations, syncopal events. Patient has known chronic diastolic congestive heart failure with preserved left ventricular ejection fraction and secondary pulmonary hypertension. She takes Lasix 40 mg twice a day. She has not missed any doses. Chest x-ray demonstrates cardiomegaly with mild pulmonary vascular congestion and interstitial edema. NT proBNP elevated at 2900. Of note, she was recently hospitalized July, and treated for possible pneumonia. Initially, completed a course of IV cefepime and then ciprofloxacin. She does endorse a intermittent cough with mostly clear sputum, occasionally yellow in color. Denies any fevers, hemoptysis, chest pain. During the same hospitalization mentioned above, she also underwent heart catheterization on 08/06/2023, and received a stent to the mid left circumflex. She states she has been taking all of her medications as directed. CBC: WBC count 14.1, hemoglobin 12.2, hematocrit 38.8, platelets 399. CMP: Sodium 136, potassium 3.7, chloride 104, serum bicarb 28, BUN 14, creatinine 0.56, glucose 93. Lactic acid level 1.4. LFTs unremarkable. EKG shows normal sinus rhythm with nonspecific t wave changes. Troponin less than 0.012 x 2. She is currently in the emergency department, room 5. She is resting comfortably on the stretcher, on 3 L/min nasal cannula. SpO2 96%. Vital signs are stable. 11/05/2023, the patient continues to have pain in her back.. No fever. No chills. Hemodynamic stable and she remains on liters of oxygen by nasal cannula. The patient remains on IV Rocephin and Zithromax. Blood cultures are still pending for now. They are still negative. The white cell count of 14 with a hemoglobin of 10.7 and a platelet count of 481. Sodium is at 139, BUN is 9 with a creatinine of 0.6 and a potassium level of 3.5. Echocardiogram has been ordered and the results are still pending. Ultrasound of the kidneys and the bladder showed renal cystic changes without any acute abnormalities. Objective - Vital Signs Vital signs: Vital Signs Temp 98.1 F 11/05/23 07:00 Pulse 101 H 11/05/23 07:00 Resp 16 11/05/23 07:00 BP 122/63 11/05/23 07:00 Pulse Ox 95 11/05/23 08:08 FiO2 Intake & Output 11/04/23 11/05/23 11/05/23 18:59 06:59 18:59 Intake Total 50 Output Total 250 Balance 50 -250 Intake: Intake, IV Titration 50 Amount cefTRIAXone 2 gm In 50 Sodium Chloride 0.9% 50 ml @ 100 mls/hr IVPB Q24HR [facility] Rx#:[id number] Output: Urine 250 Other: Voiding Method External Catheter External Catheter # Voids 3 - Exam GENERAL EXAM: Alert, 73-year-old morbidly obese white female, comfortable in no apparent distress. HEAD: Normocephalic and atraumatic EYES: Normal reaction of pupils, equal size. NOSE: Clear with pink turbinates. THROAT: No erythema or exudates. NECK: No masses, no JVD. CHEST: No chest wall deformity. LUNGS: Equal air entry with bibasilar inspiratory crackles. On 3 L/min nasal cannula. No conversational dyspnea or accessory muscle use while at rest CVS: S1 and S2 normal with no audible murmur, regular rhythm. No extra heart sounds ABDOMEN: No hepatosplenomegaly, active bowel sounds, no guarding or rigidity. SPINE: No scoliosis or deformity SKIN: No rashes CENTRAL NERVOUS SYSTEM: No focal deficits, tone is normal in all 4 extremities. EXTREMITIES: There is bilateral lower extremity 1+ pitting edema. No clubbing, or cyanosis. Peripheral pulses are intact. - Labs CBC & Chem 7: 11/05/23 04:29 11/05/23 04:29 Labs: Abnormal Lab Results - Last 24 Hours (Table) 11/04/23 11/04/23 11/04/23 Range/Units 07:13 07:13 11:03 WBC 16.04 H (4.50-10.00) X 10*3/uL RBC 3.91 L (4.10-5.20) X 10*6/uL Hgb 11.9 L (12.0-15.0) g/dL Hct (37.2-46.3) % MCV 100.5 H (80.0-97.0) FL MCHC 30.3 L (32.0-37.0) g/dL RDW (11.5-14.5) % Plt Count 483 H (140-440) X 10*3/uL Immature Gran # 0.22 H (0.00-0.04) X 10*3/uL Neutrophils # 13.29 H (1.80-7.70) X 10*3/uL Eosinophils # (0.04-0.35) X 10*3/uL Anion Gap 12.30 H (4.00-12.00) mmol/L POC Glucose (mg/dL) 208 H (70-110) mg/dL Calcium 8.1 L (8.7-10.3) mg/dL Total Bilirubin (0.3-1.2) mg/dL ALT 7 L (8-44) U/L Alkaline Phosphatase 163 H (41-126) U/L Total Protein 6.1 L (6.2-8.2) g/dL Albumin 2.6 L (3.8-4.9) g/dL Globulin 3.5 H (1.6-3.3) g/dL Albumin/Globulin Ratio 0.74 L (1.60-3.17) Ratio 11/04/23 11/05/23 11/05/23 Range/Units 20:07 04:29 04:29 WBC 14.28 H (4.50-10.00) X 10*3/uL RBC 3.50 L (4.10-5.20) X 10*6/uL Hgb 10.7 L (12.0-15.0) g/dL Hct 35.4 L (37.2-46.3) % MCV 101.1 H (80.0-97.0) FL MCHC 30.2 L (32.0-37.0) g/dL RDW 14.6 H (11.5-14.5) % Plt Count 481 H (140-440) X 10*3/uL Immature Gran # 0.23 H (0.00-0.04) X 10*3/uL Neutrophils # 11.07 H (1.80-7.70) X 10*3/uL Eosinophils # 0.65 H (0.04-0.35) X 10*3/uL Anion Gap 15.00 H (4.00-12.00) mmol/L POC Glucose (mg/dL) 120 H (70-110) mg/dL Calcium 7.8 L (8.7-10.3) mg/dL Total Bilirubin 0.2 L (0.3-1.2) mg/dL ALT 6 L (8-44) U/L Alkaline Phosphatase 143 H (41-126) U/L Total Protein 5.7 L (6.2-8.2) g/dL Albumin 2.3 L (3.8-4.9) g/dL Globulin 3.4 H (1.6-3.3) g/dL Albumin/Globulin Ratio 0.68 L (1.60-3.17) Ratio Microbiology - Last 24 Hours (Table) 11/04/23 15:40 Gram Stain - Preliminary Sputum Sputum Culture - Preliminary 11/03/23 21:15 Blood Culture - Preliminary Blood 11/03/23 21:30 Blood Culture - Preliminary Blood Assessment and Plan Assessment: UTI/sepsis suspected. Procalcitonin level is considerably elevated at 15. Remains on Rocephin and Zithromax. Awaiting cultures. Afebrile, hemodynamically stable. Acute hypoxemic respiratory failure, likely secondary to mild exacerbation of diastolic congestive heart failure. Chest x-ray demonstrates cardiomegaly with mild pulmonary vascular congestion and interstitial edema. NT proBNP elevated at 2900. Abdominal CT demonstrated incidental small left lower lobe pleural effusion and possible atelectasis. Pneumonia and parapneumonic effusion felt less likely. Right flank pain, with history of bilateral kidney stones. CT of the abdomen and pelvis without contrast demonstrated stable nonobstructing bilateral renal calcifications. Unremarkable for acute intra-abdominal process Recent outpatient treatment for urinary tract infection, reportedly completed entire course of antibiotics Coronary artery disease with recent history of PCI/stenting of the left circumflex artery on 08/06/2023 Chronic diastolic heart failure, patient is known to have a preserved left ventricular ejection fraction, severe pulmonary hypertension, and moderate to severe tricuspid regurgitation Diabetes mellitus type 2 History of hyperlipidemia History of DVT History of pneumonia, secondary to Pseudomonas Morbid obesity, with a BMI of 40.4 kg/m Plan: Clinically stable and the patient is still being treated for an underlying urine tract infection. Ultrasound of the kidneys shows no acute abnormalities. The chest x-ray findings are essentially nonspecific and there is no clear indication of any airspace disease or pulmonary infiltrates. There is no acute process and a CAT scan of the abdomen and pelvis showed that the lung bases are essentially clear and there are some atelectatic change in lung bases along with a small left-sided pleural effusion. There is nonobstructive bilateral renal stones without evidence of any hydronephrosis. Continue supplemental oxygen to maintain oxygen saturation of 92% or greater Continue Lasix 40 mg twice daily Left-sided pleural effusion not large enough for thoracentesis at this time Continue empiric antibiotics Awaiting blood culture results Check urinalysis Home medications resumed Repeat procalcitonin level in the morning. We will continue to follow
[2023-11-05 16:33] LABS: Glucose,Whole Blood 107 mg/dL (70-110)
[2023-11-05] MEDS: FUROSEMIDE 40 MG TAB PO SCH (17:17)
[2023-11-05 20:35] LABS: Glucose,Whole Blood 144 mg/dL (70-110)
[2023-11-06 06:16] LABS: Glucose,Whole Blood 111 mg/dL (70-110)
--- NOTE | 2023-11-06 07:38 | CA ---
Transthoracic Echo Report Name: Lorene Palma Age: 73 Gender: F : 1950 Exam Date: 11/05/2023 11:14 Exam Location: [facility] Ht (in): 66 Wt (lb): 250 Ordering Physician: Debi Lucas Attending/Referring Phys: Raheel Manzano DO Director Industrial Relations Elaine Garcia, TERE Procedure CPT: Indications: LVF Cardiac Hx: Technical Quality: Fair Contrast 1: Total Dose (mL): Contrast 2: Total Dose (mL): MEASUREMENTS (Male / Female) Normal Values 2D ECHO LV Diastolic Diameter PLAX 4.9 cm 4.2 - 5.9 / 3.9 - 5.3 cm LV Systolic Diameter PLAX 3.2 cm IVS Diastolic Thickness 1.2 cm 0.6 - 1.0 / 0.6 - 0.9 cm LVPW Diastolic Thickness 1.2 cm 0.6 - 1.0 / 0.6 - 0.9 cm LV Relative Wall Thickness 0.5 RV Internal Dim ED PLAX 3.8 cm LA Systolic Diameter LX 3.4 cm 3.0 - 4.0 / 2.7 - 3.8 cm M-MODE Aortic Root Diameter MM 3.2 cm DOPPLER AV Peak Velocity 99.0 cm/s AV Peak Gradient 3.9 mmHg Mitral E Point Velocity 66.5 cm/s Mitral A Point Velocity 101.1 cm/s Mitral E to A Ratio 0.7 MV Deceleration Time 335.0 ms MV E' Velocity 6.2 cm/s Mitral E to MV E' Ratio 10.7 TR Peak Velocity 398.6 cm/s TR Peak Gradient 63.5 mmHg Right Ventricular Systolic Press 73.5 mmHg FINDINGS Left Ventricle Left ventricular ejection fraction is estimated at 55-60 %. Left ventricular cavity size normal. Mildly increased septal wall thickness. Mildly increased posterior wall thickness. No obvious regional wall motion abnormalities. Right Ventricle Mild right ventricular dilatation. Severe pulmonary hypertension. Right ventricular systolic pressure estimated at 74 mm hg. Right Atrium Normal right atrial size. No right atrial thrombus or mass seen. Left Atrium Normal left atrial size. No left atrial thrombus or mass present. Mitral Valve Structurally normal mitral valve. Mitral annular calcification. No mitral stenosis, regurgitation or prolapse. Aortic Valve Trileaflet aortic valve. No aortic valve stenosis or regurgitation. Aortic valve sclerosis. Tricuspid Valve Structurally normal tricuspid valve. Moderate tricuspid regurgitation. Pulmonic Valve Structurally normal pulmonic valve. No pulmonic regurgitation. Pericardium No pericardial or pleural effusion. Aorta Normal size aortic root and proximal ascending aorta. CONCLUSIONS LVH with preserved systolic function Severe pulmonary hypertension with mild RV enlargement Previewed by: Dr. Angel Orellana MD (Electronically Signed) Final Date: 06 November 2023 07:37
[2023-11-06] MEDS: FUROSEMIDE 20 MG TAB PO SCH (08:35)
[2023-11-06 10:36] LABS: Basophils # (A) 0.06 X 10*3/uL (0.00-0.10); Basophils % (A) 0.4 %; Eosinophils # (A) 0.55 X 10*3/uL (0.04-0.35); Eosinophils % (A) 3.9 %; HCT 35.3 % (37.2-46.3); HGB 10.8 g/dL (12.0-15.0); Lymphocytes # (A) 1.47 X 10*3/uL (0.90-5.00); Lymphocytes % (A) 10.5 %; MCH 30.7 pg (27.0-32.0); MCHC 30.6 g/dL (32.0-37.0); MCV 100.3 FL (80.0-97.0); Mean Platelet Volume 9.8 FL (9.5-12.2); Monocytes # (A) 0.96 X 10*3/uL (0.20-1.00); Monocytes % (A) 6.9 %; NRBC Per 100 WBC 0 X 10*3/uL (0.00-0.01); Neutrophils % (A) 76.7 %; Platelet Count 505 X 10*3/uL (140-440); RBC 3.52 X 10*6/uL (4.10-5.20); RDW 14.5 % (11.5-14.5); WBC 13.96 X 10*3/uL (4.50-10.00)
[2023-11-06 10:51] LABS: ALT <5 U/L (8-44); AST 15 U/L (13-35); Albumin 2.3 g/dL (3.8-4.9); Albumin/Globulin Ratio 0.64 Ratio (1.60-3.17); Alkaline Phosphatase 146 U/L (41-126); Blood Urea Nitrogen 8.7 mg/dL (9.0-27.0); Calcium 8.3 mg/dL (8.7-10.3); Chloride 99 mmol/L (96-109); Globulin 3.6 g/dL (1.6-3.3); Glucose 117 mg/dL (70-110); Potassium 3.5 mmol/L (3.5-5.5); Sodium 137 mmol/L (135-145); Total Bilirubin 0.5 mg/dL (0.3-1.2); Total Protein 5.9 g/dL (6.2-8.2)
[2023-11-06 10:54] LABS: Glucose,Whole Blood 125 mg/dL (70-110)
--- NOTE | 2023-11-06 12:58 | P.PN ---
Subjective Progress Note Date: 11/06/23 This is a 73-year-old female patient who presented to the ER with concerns of chest and abdominal pain that she believes is secondary from pneumonia. Patient reports she was recently treated for UTI outpatient reports that she has had increased weakness and shortness of breath over the past week. Patient has a past medical history of CHF, diabetes mellitus, DVT, I disorder, osteoarthritis, obesity and ex-smoker. Chest x-ray completed in ER showing no acute process. CT of abdomen and pelvis completed showing small left lower lobe infiltrate and pleural effusion small amount of free fluid surrounding the spleen stable nonobstructing bilateral renal calcifications. Troponins negative 3. UA show ing positive for urinary tract infection. ProCalcitonin also elevated at 15.8. Patient was started on IV antibiotics Rocephin and Zithromax. Creatinine 0.56 bun 14 BNP elevated 2920. At this time pulmonary cardiology services will be consulted. Sputum culture ordered. Blood culture ordered. Current vital signs temp 98.7, heart rate 86, respiratory rate 17, blood pressure 111/62 with pulse ox of 92% on 3 L On 11/05/2023 patient's alert and oriented 3. Patient reports generalized weakness and pain. Patient remains on IV Rocephin and Zithromax. Patient also started on IV Lasix per cardiology. Patient denies chest pain.Current vital signs temp 98.1, heart rate 11, respiratory rate 16, blood pressure 122/63 with pulse ox 96% on room air. On 11/06/2023 patient was seen and examined on the medical floor she is alert and oriented x 3 in no apparent distress there is no fever or chills no headache or dizziness no chest pain no shortness of breath at rest she has some shortness of breath with activity, no cough no nausea or vomiting no abdominal pain no diarrhea no urinary symptoms. White blood count is coming down gradually, patient remains on IV Rocephin and IV Zithromax, pulmonary critical care, and cardiology are following, echocardiogram revealed severe pulmonary hypertension. Objective - Vital Signs Vital signs: Vital Signs Temp 97.8 F 11/06/23 07:00 Pulse 68 11/06/23 08:30 Resp 18 11/06/23 09:50 BP 104/69 11/06/23 07:00 Pulse Ox 90 L 11/06/23 09:50 FiO2 Intake & Output 11/05/23 11/06/23 11/06/23 18:59 06:59 18:59 Output Total 1200 800 Balance -1200 -800 Output: Urine 1200 800 Other: Voiding Method External Catheter External Catheter External Catheter - Exam Head normocephalic Neck supple Lungs clear to auscultation bilaterally no wheezing or crackles Heart regular rate and rhythm S1-S2, no rub or gallop Abdomen is soft nontender nondistended positive bowel sounds no hepatosplenomegaly Extremities no edema Neuro alert and orientated to 3 - Labs CBC & Chem 7: 11/06/23 07:54 11/06/23 07:54 Labs: Abnormal Lab Results - Last 24 Hours (Table) 11/05/23 11/06/23 11/06/23 Range/Units 20:33 06:14 07:54 WBC 13.96 H (4.50-10.00) X 10*3/uL RBC 3.52 L (4.10-5.20) X 10*6/uL Hgb 10.8 L (12.0-15.0) g/dL Hct 35.3 L (37.2-46.3) % MCV 100.3 H (80.0-97.0) FL MCHC 30.6 L (32.0-37.0) g/dL Plt Count 505 H (140-440) X 10*3/uL Immature Gran # 0.22 H (0.00-0.04) X 10*3/uL Neutrophils # 10.70 H (1.80-7.70) X 10*3/uL Eosinophils # 0.55 H (0.04-0.35) X 10*3/uL Anion Gap (4.00-12.00) mmol/L BUN (9.0-27.0) mg/dL Glucose (70-110) mg/dL POC Glucose (mg/dL) 144 H 111 H (70-110) mg/dL Calcium (8.7-10.3) mg/dL ALT (8-44) U/L Alkaline Phosphatase (41-126) U/L Total Protein (6.2-8.2) g/dL Albumin (3.8-4.9) g/dL Globulin (1.6-3.3) g/dL Albumin/Globulin Ratio (1.60-3.17) Ratio 11/06/23 11/06/23 Range/Units 07:54 10:51 WBC (4.50-10.00) X 10*3/uL RBC (4.10-5.20) X 10*6/uL Hgb (12.0-15.0) g/dL Hct (37.2-46.3) % MCV (80.0-97.0) FL MCHC (32.0-37.0) g/dL Plt Count (140-440) X 10*3/uL Immature Gran # (0.00-0.04) X 10*3/uL Neutrophils # (1.80-7.70) X 10*3/uL Eosinophils # (0.04-0.35) X 10*3/uL Anion Gap 13.00 H (4.00-12.00) mmol/L BUN 8.7 L (9.0-27.0) mg/dL Glucose 117 H (70-110) mg/dL POC Glucose (mg/dL) 125 H (70-110) mg/dL Calcium 8.3 L (8.7-10.3) mg/dL ALT <5 L (8-44) U/L Alkaline Phosphatase 146 H (41-126) U/L Total Protein 5.9 L (6.2-8.2) g/dL Albumin 2.3 L (3.8-4.9) g/dL Globulin 3.6 H (1.6-3.3) g/dL Albumin/Globulin Ratio 0.64 L (1.60-3.17) Ratio Microbiology - Last 24 Hours (Table) 11/04/23 15:40 Gram Stain - Final Sputum Sputum Culture - Final 11/03/23 21:15 Blood Culture - Preliminary Blood 11/03/23 21:30 Blood Culture - Preliminary Blood 11/04/23 15:00 Urine Culture - Preliminary Urine,Voided Assessment and Plan Assessment: 1.Chest pain and shortness of breath possibly secondary to acute exacerbation of diastolic congestive heart failure and/or pneumonia 2. Urinary tract infection. Patient did complete outpatient treatment will order urine culture 3. Acute on chronic diastolic congestive heart failure 4. Possible pneumonia seen on computed tomography scan with elevated calcitonin 5. History of coronary artery disease with recent history of PCI to the left circumflex in July 2023 6. History of diabetes mellitus type 2 7. History of hyperlipidemia 8. History of DVT 9. Evidence of severe pulmonary hypertension on echocardiogram 10. History of previous pneumonia secondary to Pseudomonas DVT prophylaxis Lovenox. GI prophylaxis Protonix Pulmonary cardiology services consulted Patient started on IV antibiotics Sputum urine and blood cultures ordered Repeat labs ordered PT OT service is consulted
[2023-11-06 16:16] LABS: Glucose,Whole Blood 128 mg/dL (70-110)
[2023-11-06 20:16] LABS: Glucose,Whole Blood 159 mg/dL (70-110)
[2023-11-07 05:52] LABS: Glucose,Whole Blood 117 mg/dL (70-110)
--- NOTE | 2023-11-07 10:25 | P.PN ---
Subjective Progress Note Date: 11/07/23 This is a 73-year-old female patient who presented to the ER with concerns of chest and abdominal pain that she believes is secondary from pneumonia. Patient reports she was recently treated for UTI outpatient reports that she has had increased weakness and shortness of breath over the past week. Patient has a past medical history of CHF, diabetes mellitus, DVT, I disorder, osteoarthritis, obesity and ex-smoker. Chest x-ray completed in ER showing no acute process. CT of abdomen and pelvis completed showing small left lower lobe infiltrate and pleural effusion small amount of free fluid surrounding the spleen stable nonobstructing bilateral renal calcifications. Troponins negative 3. UA show ing positive for urinary tract infection. ProCalcitonin also elevated at 15.8. Patient was started on IV antibiotics Rocephin and Zithromax. Creatinine 0.56 bun 14 BNP elevated 2920. At this time pulmonary cardiology services will be consulted. Sputum culture ordered. Blood culture ordered. Current vital signs temp 98.7, heart rate 86, respiratory rate 17, blood pressure 111/62 with pulse ox of 92% on 3 L On 11/05/2023 patient's alert and oriented 3. Patient reports generalized weakness and pain. Patient remains on IV Rocephin and Zithromax. Patient also started on IV Lasix per cardiology. Patient denies chest pain.Current vital signs temp 98.1, heart rate 11, respiratory rate 16, blood pressure 122/63 with pulse ox 96% on room air. On 11/06/2023 patient was seen and examined on the medical floor she is alert and oriented x 3 in no apparent distress there is no fever or chills no headache or dizziness no chest pain no shortness of breath at rest she has some shortness of breath with activity, no cough no nausea or vomiting no abdominal pain no diarrhea no urinary symptoms. White blood count is coming down gradually, patient remains on IV Rocephin and IV Zithromax, pulmonary critical care, and cardiology are following, echocardiogram revealed severe pulmonary hypertension. On 11/07/2023 for patient's alert and oriented 3.repeat chest x-ray has been ordered. Patient also started on nystatin for thrush. Incentive spirometer ordered. Patient complaining of constipation will order Colace. Patient remains on IV antibiotics. radiology pulmonary service is following Objective - Vital Signs Vital signs: Vital Signs Temp 98.2 F 11/07/23 07:00 Pulse 88 11/07/23 07:00 Resp 18 11/07/23 07:00 BP 107/72 11/07/23 07:00 Pulse Ox 92 L 11/07/23 07:00 FiO2 Intake & Output 11/06/23 11/07/23 11/07/23 18:59 06:59 18:59 Output Total 500 1300 Balance -500 -1300 Output: Urine 500 1300 Other: Voiding Method External Catheter External Catheter - Exam Head normocephalic Neck supple Lungs clear to auscultation bilaterally no wheezing or crackles Heart regular rate and rhythm S1-S2, no rub or gallop Abdomen is soft nontender nondistended positive bowel sounds no hepatosplenomegaly Extremities no edema Neuro alert and orientated to 3 - Labs CBC & Chem 7: 11/06/23 07:54 11/06/23 07:54 Labs: Abnormal Lab Results - Last 24 Hours (Table) 11/06/23 11/06/23 11/06/23 Range/Units 07:54 07:54 07:54 WBC 13.96 H (4.50-10.00) X 10*3/uL RBC 3.52 L (4.10-5.20) X 10*6/uL Hgb 10.8 L (12.0-15.0) g/dL Hct 35.3 L (37.2-46.3) % MCV 100.3 H (80.0-97.0) FL MCHC 30.6 L (32.0-37.0) g/dL Plt Count 505 H (140-440) X 10*3/uL Immature Gran # 0.22 H (0.00-0.04) X 10*3/uL Neutrophils # 10.70 H (1.80-7.70) X 10*3/uL Eosinophils # 0.55 H (0.04-0.35) X 10*3/uL Anion Gap 13.00 H (4.00-12.00) mmol/L BUN 8.7 L (9.0-27.0) mg/dL Glucose 117 H (70-110) mg/dL POC Glucose (mg/dL) (70-110) mg/dL Calcium 8.3 L (8.7-10.3) mg/dL ALT <5 L (8-44) U/L Alkaline Phosphatase 146 H (41-126) U/L Total Protein 5.9 L (6.2-8.2) g/dL Albumin 2.3 L (3.8-4.9) g/dL Globulin 3.6 H (1.6-3.3) g/dL Albumin/Globulin Ratio 0.64 L (1.60-3.17) Ratio Procalcitonin 2.60 H (0.02-0.09) ng/mL 11/06/23 11/06/23 11/06/23 Range/Units 10:51 16:14 20:14 WBC (4.50-10.00) X 10*3/uL RBC (4.10-5.20) X 10*6/uL Hgb (12.0-15.0) g/dL Hct (37.2-46.3) % MCV (80.0-97.0) FL MCHC (32.0-37.0) g/dL Plt Count (140-440) X 10*3/uL Immature Gran # (0.00-0.04) X 10*3/uL Neutrophils # (1.80-7.70) X 10*3/uL Eosinophils # (0.04-0.35) X 10*3/uL Anion Gap (4.00-12.00) mmol/L BUN (9.0-27.0) mg/dL Glucose (70-110) mg/dL POC Glucose (mg/dL) 125 H 128 H 159 H (70-110) mg/dL Calcium (8.7-10.3) mg/dL ALT (8-44) U/L Alkaline Phosphatase (41-126) U/L Total Protein (6.2-8.2) g/dL Albumin (3.8-4.9) g/dL Globulin (1.6-3.3) g/dL Albumin/Globulin Ratio (1.60-3.17) Ratio Procalcitonin (0.02-0.09) ng/mL 11/07/23 Range/Units 05:50 WBC (4.50-10.00) X 10*3/uL RBC (4.10-5.20) X 10*6/uL Hgb (12.0-15.0) g/dL Hct (37.2-46.3) % MCV (80.0-97.0) FL MCHC (32.0-37.0) g/dL Plt Count (140-440) X 10*3/uL Immature Gran # (0.00-0.04) X 10*3/uL Neutrophils # (1.80-7.70) X 10*3/uL Eosinophils # (0.04-0.35) X 10*3/uL Anion Gap (4.00-12.00) mmol/L BUN (9.0-27.0) mg/dL Glucose (70-110) mg/dL POC Glucose (mg/dL) 117 H (70-110) mg/dL Calcium (8.7-10.3) mg/dL ALT (8-44) U/L Alkaline Phosphatase (41-126) U/L Total Protein (6.2-8.2) g/dL Albumin (3.8-4.9) g/dL Globulin (1.6-3.3) g/dL Albumin/Globulin Ratio (1.60-3.17) Ratio Procalcitonin (0.02-0.09) ng/mL Microbiology - Last 24 Hours (Table) 11/03/23 21:15 Blood Culture - Preliminary Blood 11/03/23 21:30 Blood Culture - Preliminary Blood 11/04/23 15:00 Urine Culture - Final Urine,Voided [place] gl[place] 11/04/23 15:40 Gram Stain - Final Sputum Sputum Culture - Final Assessment and Plan Assessment: 1.Chest pain and shortness of breath possibly secondary to acute exacerbation of diastolic congestive heart failure and/or pneumonia 2. Urinary tract infection. Patient did complete outpatient treatment will order urine culture 3. Acute on chronic diastolic congestive heart failure 4. Possible pneumonia seen on computed tomography scan with elevated calcitonin 5. History of coronary artery disease with recent history of PCI to the left circumflex in July 2023 6. History of diabetes mellitus type 2 7. History of hyperlipidemia 8. History of DVT 9. Evidence of severe pulmonary hypertension on echocardiogram 10. History of previous pneumonia secondary to Pseudomonas 11. Oral thrush patient started next DVT prophylaxis Lovenox. GI prophylaxis Protonix Pulmonary cardiology services consulted Patient started on IV antibiotics Sputum urine and blood cultures ordered Repeat labs ordered PT OT service is consulted
[2023-11-07 10:39] LABS: Glucose,Whole Blood 196 mg/dL (70-110)
[2023-11-07 10:47] LABS: ALT 10 U/L (4-34); AST 18 U/L (14-36); African American GFR (CKD) >90 (>60 ml/min/1.73 sqM); Albumin 2.2 g/dL (3.5-5.0); Albumin/Globulin Ratio 0.7; Alkaline Phosphatase 145 U/L (38-126); Anion Gap 3 mmol/L; Blood Urea Nitrogen 12 mg/dL (7-17); Calcium 7.6 mg/dL (8.4-10.2); Carbon Dioxide 32 mmol/L (22-30); Chloride 98 mmol/L (98-107); Globulin 3.3 g/dL; Glucose 208 mg/dL (74-99); Non-African American GFR(CKD) >90 (>60 ml/min/1.73 sqM); Potassium 3.3 mmol/L (3.5-5.1); Sodium 133 mmol/L (137-145); Total Bilirubin 0.5 mg/dL (0.2-1.3); Total Protein 5.5 g/dL (6.3-8.2)
[2023-11-07 10:48] LABS: HCT 34.2 % (34.0-46.0); Hypochromasia Marked; MCH 29.7 pg (25.0-35.0); MCHC 29.2 g/dL (31.0-37.0); MCV 101.7 fL (80.0-100.0); Macrocytosis Slight; Mean Platelet Volume 7.6; Platelet Count 464 k/uL (150-450); RBC 3.36 m/uL (3.80-5.40); RDW 14.4 % (11.5-15.5); WBC 13.7 k/uL (3.8-10.6)
[2023-11-07] MEDS ORDERED: Potassium Replacement Protocol 1 EACH MISC MISCELLANE PRN (12:04)
--- NOTE | 2023-11-07 13:50 | XR ---
EXAMINATION TYPE: XR chest 2V DATE OF EXAM: 11/07/2023 COMPARISON: 11/04/2023 HISTORY: Shortness of breath TECHNIQUE: Frontal and lateral views of the chest are obtained. FINDINGS: Scattered senescent parenchymal changes noted. Hyperinflation compatible with COPD. Patchy perihilar and left basilar infiltrate. Correlate for pneumonia. Heart size is stable. Mediastinal structures are stable and grossly unremarkable. No evidence for hilar prominence. Degenerative changes dorsal spine. IMPRESSION: 1 Patchy perihilar and left basilar infiltrate. Correlate for pneumonia.
[2023-11-07] MEDS: POTASSIUM CHLORIDE ER 20 MEQ TAB.ER PO SCH (13:56)
[2023-11-07] MEDS: AZITHROMYCIN 500 MG in SODIUM CHLORIDE 0.9% 250 ML IVPB SCH (13:56)
[2023-11-07] MEDS: DOCUSATE 100 MG CAP PO SCH (13:56)
[2023-11-07] MEDS: NYSTATIN 100,000 UNIT/ML SUSP 500,000 UNIT/5 ML CUP PO SCH (13:57)
[2023-11-07 17:08] LABS: Glucose,Whole Blood 99 mg/dL (70-110)
[2023-11-07 20:21] LABS: Glucose,Whole Blood 145 mg/dL (70-110)
[2023-11-08 05:49] LABS: Glucose,Whole Blood 103 mg/dL (70-110)
[2023-11-08 07:46] LABS: ALT 9 U/L (4-34); AST 22 U/L (14-36); African American GFR (CKD) >90 (>60 ml/min/1.73 sqM); Albumin 2.3 g/dL (3.5-5.0); Albumin/Globulin Ratio 0.7; Alkaline Phosphatase 143 U/L (38-126); Anion Gap 1 mmol/L; Blood Urea Nitrogen 12 mg/dL (7-17); Calcium 7.8 mg/dL (8.4-10.2); Carbon Dioxide 35 mmol/L (22-30); Chloride 97 mmol/L (98-107); Globulin 3.3 g/dL; Glucose 96 mg/dL (74-99); Non-African American GFR(CKD) >90 (>60 ml/min/1.73 sqM); Sodium 133 mmol/L (137-145); Total Bilirubin 0.5 mg/dL (0.2-1.3); Total Protein 5.6 g/dL (6.3-8.2)
[2023-11-08 08:02] LABS: Basophils % (A) 0 %; Eosinophils # (A) 0.6 k/uL (0-0.7); Eosinophils % (A) 4 %; Hypochromasia Moderate; Lymphocytes # (A) 1.1 k/uL (1.0-4.8); Lymphocytes % (A) 9 %; MCH 30.4 pg (25.0-35.0); MCHC 30.4 g/dL (31.0-37.0); Macrocytosis Slight; Mean Platelet Volume 8.2; Monocytes # (A) 1.1 k/uL (0-1.0); Monocytes % (A) 9 %; Neutrophils # (A) 9.8 k/uL (1.3-7.7); Neutrophils % (A) 76 %; Platelet Count 462 k/uL (150-450); RDW 14.5 % (11.5-15.5); WBC 12.8 k/uL (3.8-10.6)
[2023-11-08 08:37] LABS: Polychromasia Present
--- NOTE | 2023-11-08 10:06 | P.PN ---
Subjective Progress Note Date: 11/08/23 This is a 73-year-old female patient who presented to the ER with concerns of chest and abdominal pain that she believes is secondary from pneumonia. Patient reports she was recently treated for UTI outpatient reports that she has had increased weakness and shortness of breath over the past week. Patient has a past medical history of CHF, diabetes mellitus, DVT, I disorder, osteoarthritis, obesity and ex-smoker. Chest x-ray completed in ER showing no acute process. CT of abdomen and pelvis completed showing small left lower lobe infiltrate and pleural effusion small amount of free fluid surrounding the spleen stable nonobstructing bilateral renal calcifications. Troponins negative 3. UA show ing positive for urinary tract infection. ProCalcitonin also elevated at 15.8. Patient was started on IV antibiotics Rocephin and Zithromax. Creatinine 0.56 bun 14 BNP elevated 2920. At this time pulmonary cardiology services will be consulted. Sputum culture ordered. Blood culture ordered. Current vital signs temp 98.7, heart rate 86, respiratory rate 17, blood pressure 111/62 with pulse ox of 92% on 3 L On 11/05/2023 patient's alert and oriented 3. Patient reports generalized weakness and pain. Patient remains on IV Rocephin and Zithromax. Patient also started on IV Lasix per cardiology. Patient denies chest pain.Current vital signs temp 98.1, heart rate 11, respiratory rate 16, blood pressure 122/63 with pulse ox 96% on room air. On 11/06/2023 patient was seen and examined on the medical floor she is alert and oriented x 3 in no apparent distress there is no fever or chills no headache or dizziness no chest pain no shortness of breath at rest she has some shortness of breath with activity, no cough no nausea or vomiting no abdominal pain no diarrhea no urinary symptoms. White blood count is coming down gradually, patient remains on IV Rocephin and IV Zithromax, pulmonary critical care, and cardiology are following, echocardiogram revealed severe pulmonary hypertension. On 11/07/2023 for patient's alert and oriented 3.repeat chest x-ray has been ordered. Patient also started on nystatin for thrush. Incentive spirometer ordered. Patient complaining of constipation will order Colace. Patient remains on IV antibiotics. radiology pulmonary service is following On 11/08/2023 Patient is alert and oriented 3. Repeat chest x-ray completed showing patchy perihilar and left basal infiltrate correlate for pneumonia patient remains on azithromycin and IV Rocephin.Current vital signs temp 98.3, heart rate 90, respiratory rate 18, blood pressure for over 63 with pulse ox of 100% on 4 L Objective - Vital Signs Vital signs: Vital Signs Temp 98.3 F 11/08/23 01:43 Pulse 90 11/08/23 01:43 Resp 18 11/08/23 01:43 BP 94/63 11/08/23 01:43 Pulse Ox 93 L 11/08/23 01:43 FiO2 Intake & Output 11/07/23 11/08/23 11/08/23 18:59 06:59 18:59 Intake Total 960 Output Total 700 850 Balance -700 110 Intake: Oral 960 Output: Urine 700 850 Other: Voiding Method External Catheter External Catheter - Exam Head normocephalic Neck supple Lungs clear to auscultation bilaterally no wheezing or crackles Heart regular rate and rhythm S1-S2, no rub or gallop Abdomen is soft nontender nondistended positive bowel sounds no hepatosplenomegaly Extremities no edema Neuro alert and orientated to 3 - Labs CBC & Chem 7: 11/08/23 07:02 11/08/23 07:02 Labs: Abnormal Lab Results - Last 24 Hours (Table) 11/07/23 11/07/23 11/07/23 Range/Units 10:09 10:09 10:36 WBC 13.7 H (3.8-10.6) k/uL RBC 3.36 L (3.80-5.40) m/uL Hgb 10.0 L D (11.4-16.0) gm/dL Hct (34.0-46.0) % MCV 101.7 H (80.0-100.0) fL MCHC 29.2 L (31.0-37.0) g/dL Plt Count 464 H (150-450) k/uL Neutrophils # (1.3-7.7) k/uL Monocytes # (0-1.0) k/uL Sodium 133 L (137-145) mmol/L Potassium 3.3 L (3.5-5.1) mmol/L Chloride (98-107) mmol/L Carbon Dioxide 32 H (22-30) mmol/L Creatinine 0.50 L (0.52-1.04) mg/dL Glucose 208 H (74-99) mg/dL POC Glucose (mg/dL) 196 H (70-110) mg/dL Calcium 7.6 L (8.4-10.2) mg/dL Alkaline Phosphatase 145 H (38-126) U/L Total Protein 5.5 L (6.3-8.2) g/dL Albumin 2.2 L (3.5-5.0) g/dL 11/07/23 11/08/23 11/08/23 Range/Units 20:19 07:02 07:02 WBC 12.8 H (3.8-10.6) k/uL RBC 3.30 L (3.80-5.40) m/uL Hgb 10.0 L (11.4-16.0) gm/dL Hct 33.0 L (34.0-46.0) % MCV (80.0-100.0) fL MCHC 30.4 L (31.0-37.0) g/dL Plt Count 462 H (150-450) k/uL Neutrophils # 9.8 H (1.3-7.7) k/uL Monocytes # 1.1 H (0-1.0) k/uL Sodium 133 L (137-145) mmol/L Potassium (3.5-5.1) mmol/L Chloride 97 L (98-107) mmol/L Carbon Dioxide 35 H (22-30) mmol/L Creatinine 0.50 L (0.52-1.04) mg/dL Glucose (74-99) mg/dL POC Glucose (mg/dL) 145 H (70-110) mg/dL Calcium 7.8 L (8.4-10.2) mg/dL Alkaline Phosphatase 143 H (38-126) U/L Total Protein 5.6 L (6.3-8.2) g/dL Albumin 2.3 L (3.5-5.0) g/dL Assessment and Plan Assessment: 1.Chest pain and shortness of breath possibly secondary to acute exacerbation of diastolic congestive heart failure and/or pneumonia 2. Urinary tract infection. Patient did complete outpatient treatment will order urine culture 3. Acute on chronic diastolic congestive heart failure 4. Possible pneumonia seen on computed tomography scan with elevated calcitonin 5. History of coronary artery disease with recent history of PCI to the left circumflex in July 2023 6. History of diabetes mellitus type 2 7. History of hyperlipidemia 8. History of DVT 9. Evidence of severe pulmonary hypertension on echocardiogram 10. History of previous pneumonia secondary to Pseudomonas 11. Oral thrush patient started on nystatin DVT prophylaxis Lovenox. GI prophylaxis Protonix Pulmonary cardiology services consulted Patient started on IV antibiotics Sputum urine and blood cultures ordered Repeat labs ordered PT OT service is consulted
[2023-11-08 12:16] LABS: Glucose,Whole Blood 113 mg/dL (70-110)
[2023-11-08 17:11] LABS: Glucose,Whole Blood 129 mg/dL (70-110)
[2023-11-08 21:04] LABS: Glucose,Whole Blood 145 mg/dL (70-110)
[2023-11-09 05:18] LABS: Glucose,Whole Blood 97 mg/dL (70-110)
[2023-11-09 11:00] LABS: Basophils # (A) 0.08 X 10*3/uL (0.00-0.10); Basophils % (A) 0.6 %; Eosinophils % (A) 5.1 %; HCT 31.9 % (37.2-46.3); HGB 9.3 g/dL (12.0-15.0); Lymphocytes # (A) 1.58 X 10*3/uL (0.90-5.00); Lymphocytes % (A) 11.6 %; MCHC 29.2 g/dL (32.0-37.0); MCV 102.9 FL (80.0-97.0); Monocytes # (A) 0.97 X 10*3/uL (0.20-1.00); Monocytes % (A) 7.1 %; NRBC Per 100 WBC 0 X 10*3/uL (0.00-0.01); Neutrophils # (A) 10.14 X 10*3/uL (1.80-7.70); Neutrophils % (A) 74.3 %; Platelet Count 437 X 10*3/uL (140-440); RDW 14.3 % (11.5-14.5); WBC 13.65 X 10*3/uL (4.50-10.00)
[2023-11-09 11:18] LABS: Blood Urea Nitrogen 11.2 mg/dL (9.0-27.0); Carbon Dioxide 33.6 mmol/L (21.6-31.8); Chloride 95 mmol/L (96-109); Glucose 86 mg/dL (70-110); Potassium 4.1 mmol/L (3.5-5.5); Sodium 138 mmol/L (135-145)
[2023-11-09 11:19] LABS: ALT 12 U/L (8-44); AST 25 U/L (13-35); Albumin 2.3 g/dL (3.8-4.9); Albumin/Globulin Ratio 0.64 Ratio (1.60-3.17); Alkaline Phosphatase 131 U/L (41-126); Calcium 8.1 mg/dL (8.7-10.3); Globulin 3.6 g/dL (1.6-3.3); Total Bilirubin 0.3 mg/dL (0.3-1.2); Total Protein 5.9 g/dL (6.2-8.2)
[2023-11-09 12:02] LABS: Glucose,Whole Blood 106 mg/dL (70-110)
--- NOTE | 2023-11-09 12:28 | P.PN ---
Subjective Progress Note Date: 11/09/23 This is a 73-year-old female patient who presented to the ER with concerns of chest and abdominal pain that she believes is secondary from pneumonia. Patient reports she was recently treated for UTI outpatient reports that she has had increased weakness and shortness of breath over the past week. Patient has a past medical history of CHF, diabetes mellitus, DVT, I disorder, osteoarthritis, obesity and ex-smoker. Chest x-ray completed in ER showing no acute process. CT of abdomen and pelvis completed showing small left lower lobe infiltrate and pleural effusion small amount of free fluid surrounding the spleen stable nonobstructing bilateral renal calcifications. Troponins negative 3. UA show ing positive for urinary tract infection. ProCalcitonin also elevated at 15.8. Patient was started on IV antibiotics Rocephin and Zithromax. Creatinine 0.56 bun 14 BNP elevated 2920. At this time pulmonary cardiology services will be consulted. Sputum culture ordered. Blood culture ordered. Current vital signs temp 98.7, heart rate 86, respiratory rate 17, blood pressure 111/62 with pulse ox of 92% on 3 L On 11/05/2023 patient's alert and oriented 3. Patient reports generalized weakness and pain. Patient remains on IV Rocephin and Zithromax. Patient also started on IV Lasix per cardiology. Patient denies chest pain.Current vital signs temp 98.1, heart rate 11, respiratory rate 16, blood pressure 122/63 with pulse ox 96% on room air. On 11/06/2023 patient was seen and examined on the medical floor she is alert and oriented x 3 in no apparent distress there is no fever or chills no headache or dizziness no chest pain no shortness of breath at rest she has some shortness of breath with activity, no cough no nausea or vomiting no abdominal pain no diarrhea no urinary symptoms. White blood count is coming down gradually, patient remains on IV Rocephin and IV Zithromax, pulmonary critical care, and cardiology are following, echocardiogram revealed severe pulmonary hypertension. On 11/07/2023 for patient's alert and oriented 3.repeat chest x-ray has been ordered. Patient also started on nystatin for thrush. Incentive spirometer ordered. Patient complaining of constipation will order Colace. Patient remains on IV antibiotics. radiology pulmonary service is following On 11/08/2023 Patient is alert and oriented 3. Repeat chest x-ray completed showing patchy perihilar and left basal infiltrate correlate for pneumonia patient remains on azithromycin and IV Rocephin.Current vital signs temp 98.3, heart rate 90, respiratory rate 18, blood pressure for over 63 with pulse ox of 100% on 4 L On 11/09/2023 patient was seen and examined on the medical floor she is alert and oriented x 3 in no apparent distress there is no fever or chills no headache or dizziness no chest pain no shortness of breath at rest she has some shortness of breath with activity, she has occasional cough, no nausea or vomiting, no diarrhea no urinary symptoms. White blood count is coming down gradually, patient remains on IV Rocephin and IV Zithromax, echocardiogram revealed severe pulmonary hypertension. I will ask pulmonary to reevaluate the patient, she is not feeling better, patient has generalized abdominal pain, will check abdominal ultrasound, consultation for infectious disease was initiated. Objective - Vital Signs Vital signs: Vital Signs Temp 98.5 F 11/09/23 06:43 Pulse 100 11/09/23 06:43 Resp 19 11/09/23 06:43 BP 102/57 11/09/23 06:43 Pulse Ox 93 L 11/09/23 09:30 FiO2 Intake & Output 11/08/23 11/09/23 11/09/23 18:59 06:59 18:59 Output Total 550 1300 Balance -550 -1300 Output: Urine 550 1300 Other: Voiding Method External Catheter External Catheter # Voids 1 - Exam Head normocephalic Neck supple Lungs clear to auscultation bilaterally no wheezing or crackles Heart regular rate and rhythm S1-S2, no rub or gallop Abdomen is soft nontender nondistended positive bowel sounds no hepato splenomegaly Extremities no edema Neuro alert and orientated to 3 - Labs CBC & Chem 7: 11/09/23 05:43 11/09/23 05:43 Labs: Abnormal Lab Results - Last 24 Hours (Table) 11/08/23 11/08/23 11/08/23 Range/Units 12:15 17:10 21:01 POC Glucose (mg/dL) 113 H 129 H 145 H (70-110) mg/dL Microbiology - Last 24 Hours (Table) 11/03/23 21:15 Blood Culture - Final Blood 11/03/23 21:30 Blood Culture - Final Blood Assessment and Plan Assessment: 1.Chest pain and shortness of breath possibly secondary to acute exacerbation of diastolic congestive heart failure and/or pneumonia 2. Urinary tract infection. Patient did complete outpatient treatment will order urine culture 3. Acute on chronic diastolic congestive heart failure 4. Possible pneumonia seen on computed tomography scan with elevated calcitonin 5. History of coronary artery disease with recent history of PCI to the left circumflex in July 2023 6. History of diabetes mellitus type 2 7. History of hyperlipidemia 8. History of DVT 9. Evidence of severe pulmonary hypertension on echocardiogram 10. History of previous pneumonia secondary to Pseudomonas 11. Oral thrush patient started on nystatin DVT prophylaxis Lovenox. GI prophylaxis Protonix Pulmonary cardiology services consulted Patient started on IV antibiotics Sputum urine and blood cultures ordered Repeat labs ordered PT OT service is consulted
[2023-11-09] MEDS: LACTULOSE 20 GM/30 ML CUP PO ONE (12:42)
--- NOTE | 2023-11-09 13:43 | XR ---
EXAMINATION TYPE: XR chest 2V DATE OF EXAM: 11/09/2023 1:23 PM CLINICAL INDICATION:Female, 73 years old with history of follow up pneumonia; [facility] COMPARISON: Chest radiographs from 11/07/2023 TECHNIQUE: XR chest 2V Frontal and lateral views of the chest. FINDINGS: Lungs/Pleura: There is no evidence of pleural effusion, focal consolidation, or pneumothorax. Pulmonary vascularity: Pulmonary vascular congestion. Heart/mediastinum: Cardiomediastinal silhouette is enlarged and stable. Musculoskeletal: No acute osseous pathology. IMPRESSION: Cardiomegaly, pulmonary vascular congestion and bilateral pleural effusions. Correlate with BNP for c ongestive heart failure.
[2023-11-09] MEDS: VORICONAZOLE 200 MG TAB PO SCH (15:25)
[2023-11-09 16:49] LABS: Glucose,Whole Blood 124 mg/dL (70-110)
[2023-11-09 20:07] LABS: Glucose,Whole Blood 205 mg/dL (70-110)
[2023-11-10 05:37] LABS: Glucose,Whole Blood 93 mg/dL (70-110)
--- NOTE | 2023-11-10 08:17 | P.CONS ---
History of Present Illness - Reason for Consult Consult date: 11/09/23 UTI, pneumonia Requesting physician: Pat Angulo - Chief Complaint Left--sided flank pain x few days - History of Present Illness Patient is a 73-year-old female with a past medical history significant for diabetes mellitus DVT osteoarthritis heart failure pneumonia and UTI presenting to the hospital 5 days ago for evaluation of right-sided flank pain radiating to the right upper abdominal area patient describes the pain to be dull aching to sharp moderate intensity did have some associated nausea and vomiting also have some diarrhea patient denies high-grade fever or any chills and no fever has been according to her this hospital stay patient did have a white count of 14.1 which is still elevated 13.65 today creatinine has been normal liver enzymes are normal procalcitonin was 15.80 she did have a positive UA with urine culture finalized with Sri glabrata prompting this consultation patient did have negative blood culture as well as negative sputum culture patient did have a chest x-ray no acute process CT abdominal pelvis small left lower lobe infiltrate and effusion small amount of free fluid surrounding the spleen nonobstructive bilateral renal calcification abdominal bladder Ultrasound read as cystic changes, patient has been on Rocephin infectious was consulted today for further management of antibiotic therapy Review of Systems Positive point and negatives has been mentioned in the HPI, complete review of systems was performed and all other systems are negative Past Medical History Past Medical History: Heart Failure, Diabetes Mellitus, Deep Vein Thrombosis (DVT), Eye Disorder, Osteoarthritis (OA), Pneumonia Additional Past Medical History / Comment(s): Seasonal allergies. Macular degeneration, Rt eye worse. Edema in legs, hx water blisters, wears jobst stockings. kidney stones. Hx blood clot in leg History of Any Multi-Drug Resistant Organisms: None Reported Past Surgical History: Hysterectomy, Tubal Ligation Additional Past Surgical History / Comment(s): Multiple Kidney stone removals, LITHOTRIPSY. Blood clot removal left thigh, placed stent lt groin 2012 est. Past Anesthesia/Blood Transfusion Reactions: Previous Problems w/ Anesthesia Additional Past Anesthesia/Blood Transfusion Reaction / Comm: difficulty with breathing when waking up from previous kidney stone surgery x1 Past Psychological History: No Psychological Hx Reported Smoking Status: Former smoker Past Alcohol Use History: None Reported Past Drug Use History: None Reported - Past Family History Mother Family Medical History: Cancer Additional Family Medical History / Comment(s): colon cancer Father Family Medical History: Cancer Additional Family Medical History / Comment(s): lung cancer Sister(s) Family Medical History: Cancer Additional Family Medical History / Comment(s): breast cancer Brother(s) Family Medical History: Cancer, Pulmonary Embolus Daughter(s) Additional Family Medical History / Comment(s): daughter developed blood clot to shoulder and neck after IV PICC line insertion, TIA. granddaughter hx blood clot to groin Medications and Allergies Home Medications Medication Instructions Recorded Confirmed Type Acetaminophen [Tylenol 8 Hour] 1,300 mg PO Q8H 12/01/18 11/03/23 History Aspirin EC [Ecotrin Low Dose] 81 mg PO DAILY 12/01/18 11/03/23 History metFORMIN HCL [Glucophage] 500 mg PO BID 12/01/18 11/03/23 History Cholecalciferol [Vitamin D3 (25 100 mcg PO DAILY 04/24/23 11/03/23 History Mcg = 1000 Iu)] Atorvastatin [Lipitor] 20 mg PO DAILY tab 05/13/23 11/03/23 Rx Dapagliflozin Propanediol [Farxiga] 10 mg PO DAILY tab 05/13/23 11/03/23 Rx Metoprolol Tartrate [Lopressor] 25 mg PO BID 08/05/23 11/03/23 History Montelukast [Singulair] 10 mg PO HS 08/05/23 11/03/23 History oxyBUTYnin chloride [Ditropan] 5 mg PO BID 08/05/23 11/03/23 History Cyanocobalamin [Vitamin B-12] 1,000 mcg PO DAILY 90 Days #90 tab 08/14/23 11/03/23 Rx Ferrous Sulfate [Feosol] 325 mg PO DAILY 30 Days #30 tab 08/14/23 11/03/23 Rx Multivit-Min/FA/Lycopen/Lutein 1 tab PO DAILY 11/03/23 11/03/23 History [Centrum Silver Tablet] Pantoprazole [Protonix] 40 mg PO DAILY 11/03/23 11/03/23 History Anidulafungin [Eraxis] 100 mg IVPB DAILY@1200 each 11/21/23 Rx Cefepime [Maxipime] 2 gm IVPB Q12H each 11/21/23 Rx Docusate [Colace] 100 mg PO DAILY cap 11/21/23 Rx Enoxaparin [Lovenox] 40 mg SQ DAILY each 11/21/23 Rx Furosemide [Lasix] 40 mg PO 1600 tab 11/21/23 Rx Furosemide [Lasix] 60 mg PO DAILY tab 11/21/23 Rx Ipratropium-Albuterol Nebulize 3 ml INHALATION RT-Q4H PRN each 11/21/23 Rx [Duoneb 0.5 mg-3 mg/3 ml Soln] Lactulose [Cephulac] 20 gm PO BID PRN ml 11/21/23 Rx Magnesium Hydroxide [Milk of 2,400 mg PO ONCE PRN ml 11/21/23 Rx Magnesia] Nystatin 100,000 Unit/gm Powd 1 applic TOPICAL BID each 11/21/23 Rx [Mycostatin Powder] Nystatin 100,000 Unit/ml Susp 500,000 unit PO QID ml 11/21/23 Rx [Mycostatin Oral Susp] traMADol HCl [Ultram] 50 mg PO Q6H PRN tab 11/21/23 Rx Allergies Allergy/AdvReac Type Severity Reaction Status Date / Time amoxicillin Allergy Rash/Hives Verified 11/03/23 21:14 dill weed Allergy Rash/Hives Uncoded 11/03/23 21:14 Physical Exam Vitals: Vital Signs Temp Pulse Resp BP Pulse Ox 11/09/23 09:50 100 19 11/09/23 09:30 93 L 11/09/23 06:43 98.5 F 100 19 102/57 95 11/09/23 02:32 98.1 F 101 H 18 92/56 96 11/08/23 20:37 101 H 18 11/08/23 20:10 97.9 F 101 H 18 98/63 92 L 11/08/23 15:27 97.8 F 85 19 95/63 94 L Intake and Output 11/08/23 11/09/23 11/09/23 22:59 06:59 14:59 Output Total 700 600 Balance -700 -600 Output: Urine 700 600 Other: Voiding Method External Catheter External Catheter # Voids 1 GENERAL DESCRIPTION: Elderly female lying in bed, no distress. No tachypnea or accessory muscle of respiration use. HEENT: Shows Pallor , no scleral icterus. Oral mucous membrane is dry. No pharyngeal erythema or thrush NECK: Trachea central, no thyromegaly. LUNGS: Unlabored breathing. Decreased breath sound at the base HEART: S1, S2, regular rate and rhythm. No loud murmur ABDOMEN: Soft, no tenderness , EXTREMITIES: No edema of feet. SKIN: No rash, no masses palpable. NEUROLOGICAL: The patient is awake, alert, oriented x3, mood and affect normal. Results CBC & Chem 7: 11/21/23 06:58 11/21/23 06:58 Labs: Abnormal Lab Results - Last 24 Hours (Table) 11/08/23 11/08/23 11/09/23 Range/Units 17:10 21:01 05:43 WBC 13.65 H (4.50-10.00) X 10*3/uL RBC 3.10 L (4.10-5.20) X 10*6/uL Hgb 9.3 L (12.0-15.0) g/dL Hct 31.9 L (37.2-46.3) % MCV 102.9 H (80.0-97.0) FL MCHC 29.2 L (32.0-37.0) g/dL Immature Gran # 0.18 H (0.00-0.04) X 10*3/uL Neutrophils # 10.14 H (1.80-7.70) X 10*3/uL Eosinophils # 0.70 H (0.04-0.35) X 10*3/uL Chloride (96-109) mmol/L Carbon Dioxide (21.6-31.8) mmol/L Creatinine (0.6-1.5) mg/dL BUN/Creatinine Ratio (12.00-20.00) Ratio POC Glucose (mg/dL) 129 H 145 H (70-110) mg/dL Calcium (8.7-10.3) mg/dL Alkaline Phosphatase (41-126) U/L Total Protein (6.2-8.2) g/dL Albumin (3.8-4.9) g/dL Globulin (1.6-3.3) g/dL Albumin/Globulin Ratio (1.60-3.17) Ratio 11/09/23 Range/Units 05:43 WBC (4.50-10.00) X 10*3/uL RBC (4.10-5.20) X 10*6/uL Hgb (12.0-15.0) g/dL Hct (37.2-46.3) % MCV (80.0-97.0) FL MCHC (32.0-37.0) g/dL Immature Gran # (0.00-0.04) X 10*3/uL Neutrophils # (1.80-7.70) X 10*3/uL Eosinophils # (0.04-0.35) X 10*3/uL Chloride 95 L (96-109) mmol/L Carbon Dioxide 33.6 H (21.6-31.8) mmol/L Creatinine 0.5 L (0.6-1.5) mg/dL BUN/Creatinine Ratio 22.40 H (12.00-20.00) Ratio POC Glucose (mg/dL) (70-110) mg/dL Calcium 8.1 L (8.7-10.3) mg/dL Alkaline Phosphatase 131 H (41-126) U/L Total Protein 5.9 L (6.2-8.2) g/dL Albumin 2.3 L (3.8-4.9) g/dL Globulin 3.6 H (1.6-3.3) g/dL Albumin/Globulin Ratio 0.64 L (1.60-3.17) Ratio Microbiology - Last 24 Hours (Table) 11/03/23 21:15 Blood Culture - Final Blood 11/03/23 21:30 Blood Culture - Final Blood Assessment and Plan (1) Penicillin allergy Status: Acute Code(s): Z88.0 - ALLERGY STATUS TO PENICILLIN SNOMED Code(s): 24866853 (2) UTI (urinary tract infection) Status: Acute Code(s): N39.0 - URINARY TRACT INFECTION, SITE NOT SPECIFIED SNOMED Code(s): 57123991 Plan: 1patient is in the hospital with the flank pain nausea and vomiting did have a positive UA likely concerning for symptomatic UTI/pyelonephritis with urine culture growing Sri glabrata likely etiology of her illness, patient did have a chest x-ray was reported negative for acute infiltrate CT abdominal pelvis did show some left lower lobe infiltrate and effusion questionably atelectasis clinically not behaving as pneumonia. 2we will add voriconazole 200 mg p.o. twice daily for her UTI/pyelonephritis and watch clinical course closely , instructed with incentive spirometry for atelectasis at the bedside multiple questions answered We will follow on clinical condition and cultures to further adjust medication if needed Thank you for this consultation we will follow the patient along with you Dictation was produced using [employer] dictation software. please excuse any grammatical, word or spelling errors. Time with Patient: Greater than 30
[2023-11-10 08:30] LABS: Basophils # (A) 0.05 X 10*3/uL (0.00-0.10); Basophils % (A) 0.4 %; Eosinophils # (A) 0.66 X 10*3/uL (0.04-0.35); HGB 9.5 g/dL (12.0-15.0); Lymphocytes # (A) 1.73 X 10*3/uL (0.90-5.00); MCH 31.3 pg (27.0-32.0); MCHC 30.6 g/dL (32.0-37.0); Mean Platelet Volume 9.9 FL (9.5-12.2); Monocytes # (A) 0.91 X 10*3/uL (0.20-1.00); Monocytes % (A) 6.8 %; NRBC Per 100 WBC 0 X 10*3/uL (0.00-0.01); Neutrophils # (A) 9.83 X 10*3/uL (1.80-7.70); Neutrophils % (A) 73.7 %; Platelet Count 435 X 10*3/uL (140-440); RBC 3.04 X 10*6/uL (4.10-5.20); RDW 14.3 % (11.5-14.5); WBC 13.33 X 10*3/uL (4.50-10.00)
[2023-11-10 08:42] LABS: ALT 14 U/L (8-44); AST 25 U/L (13-35); Albumin 2.3 g/dL (3.8-4.9); Albumin/Globulin Ratio 0.62 Ratio (1.60-3.17); Alkaline Phosphatase 131 U/L (41-126); Blood Urea Nitrogen 10.6 mg/dL (9.0-27.0); Calcium 8.3 mg/dL (8.7-10.3); Chloride 93 mmol/L (96-109); Globulin 3.7 g/dL (1.6-3.3); Glucose 85 mg/dL (70-110); Potassium 4.2 mmol/L (3.5-5.5); Sodium 137 mmol/L (135-145); Total Bilirubin 0.3 mg/dL (0.3-1.2)
--- NOTE | 2023-11-10 09:06 | US ---
EXAMINATION TYPE: US abdomen complete DATE OF EXAM: 11/10/2023 COMPARISON: CLINICAL INDICATION: Female, 73 years old with history of abdominal pain; Lower pain. NPO. Patient states she has not pooped in 6 days. TECHNIQUE: Multiple sonographic images of the abdomen are obtained. FINDINGS: EXAM MEASUREMENTS: Liver Length: 16.7 cm. normal less than 15.5 cm Gallbladder Wall: 0.2 cm CBD: 0.4 cm Spleen: 13.1 cm. Normal less than 12.5 cm. Right Kidney: 9.9 x 6.1 x 5.7 cm Left Kidney: 11.8 x 5.6 x 5.3 cm Pancreas: Limited visualization Liver: Slightly enlarged. Gallbladder: No stones or wall thickening Evidence for sonographic Gasca's sign: neg CBD: wnl Spleen: Slightly Enlarged in size Right Kidney: Inferior pole obscured by bowel gas. Superior anechoic lesion = 5.9 x 5.9 x 6.2 cm. Superior echogenic focus with no shadowing seen = 0.5 cm Left Kidney: Upper pole posterior hypoechoic lesion = 3.5 x 2.1 x 2.9 cm. Upper IVC: wnl Abd Aorta: No AAA visualized at time of scan IMPRESSION: 1. Mild Hepatosplenomegaly 2. Nonobstructing superior pole right renal calcification. 2. Simple appearing large cyst superior pole right kidney and smaller simple appearing upper pole lef t renal cyst.
[2023-11-10 11:28] LABS: Glucose,Whole Blood 200 mg/dL (70-110)
--- NOTE | 2023-11-10 12:40 | P.PN ---
Subjective Progress Note Date: 11/10/23 Patient is a 73-year-old white female with past medical history significant for congestive heart failure, kidney stones, coronary artery disease with recent PCI/stenting of the left circumflex artery, diabetes mellitus, DVT, obesity. Patient presented emergency room yesterday evening with multiple complaints. Approximately, 1 week ago she began to noticed right-sided flank pain with radiation to the right upper abdomen. Of note, she states that she was recently treated outpatient for urinary tract infection by her primary care provider, Dr. Angulo, and she completed her antibiotics approximately 1 week ago. She denies any further urinary complaints such as dysuria, urinary frequency, incontinence, hematuria. She does have history of bilateral kidney stones. Also, reports an isolated episode of nausea and vomiting and intermittent diarrhea. A CT of the abdomen and pelvis without contrast demonstrated stable nonobstructing bilateral renal calcifications. Otherwise, unremarkable for intrabdominal process. There was incidentally a small left lower lobe pleural effusion and likely atelectasis versus infiltrate. More recently, she has noticed increased shortness of breath with exertion. She has been generally weak and fatigued. Also, sleeping alot in the chair. She has bilateral lower extremity swelling. Denies any chest pain, heart palpitations, syncopal events. Patient has known chronic diastolic congestive heart failure with preserved left ventricular ejection fraction and secondary pulmonary hypertension. She takes Lasix 40 mg twice a day. She has not missed any doses. Chest x-ray demonstrates cardiomegaly with mild pulmonary vascular congestion and interstitial edema. NT proBNP elevated at 2900. Of note, she was recently hospitalized July, and treated for possible pneumonia. Initially, completed a course of IV cefepime and then ciprofloxacin. She does endorse a intermittent cough with mostly clear sputum, occasionally yellow in color. Denies any fevers, hemoptysis, chest pain. During the same hospitalization mentioned above, she also underwent heart catheterization on 08/06/2023, and received a stent to the mid left circumflex. She states she has been taking all of her medications as directed. CBC: WBC count 14.1, hemoglobin 12.2, hematocrit 38.8, platelets 399. CMP: Sodium 136, potassium 3.7, chloride 104, serum bicarb 28, BUN 14, creatinine 0.56, glucose 93. Lactic acid level 1.4. LFTs unremarkable. EKG shows normal sinus rhythm with nonspecific t wave changes. Troponin less than 0.012 x 2. She is currently in the emergency depa rtment, room 5. She is resting comfortably on the stretcher, on 3 L/min nasal cannula. SpO2 96%. Vital signs are stable. 11/05/2023, the patient continues to have pain in her back.. No fever. No chills. Hemodynamic stable and she remains on liters of oxygen by nasal cannula. The patient remains on IV Rocephin and Zithromax. Blood cultures are still pending for now. They are still negative. The white cell count of 14 with a hemoglobin of 10.7 and a platelet count of 481. Sodium is at 139, BUN is 9 with a creatinine of 0.6 and a potassium level of 3.5. Echocardiogram has been ordered and the results are still pending. Ultrasound of the kidneys and the bladder showed renal cystic changes without any acute abnormalities. The patient is seen today November 10, 2023 in follow-up on the regular medical floor. She is currently awake and alert in no acute distress. Maintaining O2 saturations in the 90s on 6 L high flow nasal cannula. She has been afebrile. Hemodynamically stable. Follow-up chest x-ray reveals cardiomegaly with pulmonary vascular congestion and small pleural effusions. White count 13.3. Hemoglobin 9.5. Platelets 435. Sodium 137. Potassium 4.2. Bicarb 33. BUN 10.6. Creatinine 0.5. Glucose 85. Procalcitonin 0.33. She remains on antibiotics in the form of ceftriaxone. Continued on diuretics. Lovenox for DVT prophylaxis. Currently net -2.4 L balance. Abdominal ultrasound revealed mild hepatosplenomegaly. Nonobstructing superior pole right renal calcification. Simple appearing cyst in the superior pole of the right kidney and smaller simple appearing upper pole left renal cyst. Objective - Vital Signs Vital signs: Vital Signs Temp 98.1 F 11/10/23 07:00 Pulse 65 11/10/23 07:00 Resp 15 11/10/23 07:00 BP 110/74 11/10/23 07:00 Pulse Ox 91 L 11/10/23 07:00 FiO2 Intake & Output 11/09/23 11/10/23 11/10/23 18:59 06:59 18:59 Output Total 1500 900 Balance -1500 -900 Output: Urine 1500 900 Other: Voiding Method External Catheter External Catheter Bedside Commode # Voids 1 - Exam GENERAL EXAM: Alert, 73-year-old female, on 6 L high flow nasal cannula, comfortable in no apparent distress. HEAD: Normocephalic. EYES: Normal reaction of pupils, equal size. NOSE: Clear with pink turbinates. THROAT: No erythema or exudates. NECK: No masses, no JVD. CHEST: No chest wall deformity. LUNGS: Equal air entry with basilar crackles bilaterally. CVS: S1 and S2 normal with no audible murmur, regular rhythm. ABDOMEN: No hepatosplenomegaly, normal bowel sounds, no guarding or rigidity. SPINE: No scoliosis or deformity SKIN: No rashes CENTRAL NERVOUS SYSTEM: No focal deficits, tone is normal in all 4 extremities. EXTREMITIES: There is 1-2+ peripheral edema. No clubbing, no cyanosis. Peripheral pulses are intact. - Labs CBC & Chem 7: 11/10/23 04:06 11/10/23 04:06 Labs: Abnormal Lab Results - Last 24 Hours (Table) 11/09/23 11/09/23 11/10/23 Range/Units 16:47 19:59 04:06 WBC (4.50-10.00) X 10*3/uL RBC (4.10-5.20) X 10*6/uL Hgb (12.0-15.0) g/dL Hct (37.2-46.3) % MCV (80.0-97.0) FL MCHC (32.0-37.0) g/dL Immature Gran # (0.00-0.04) X 10*3/uL Neutrophils # (1.80-7.70) X 10*3/uL Eosinophils # (0.04-0.35) X 10*3/uL Chloride (96-109) mmol/L Carbon Dioxide (21.6-31.8) mmol/L Creatinine (0.6-1.5) mg/dL BUN/Creatinine Ratio (12.00-20.00) Ratio POC Glucose (mg/dL) 124 H 205 H (70-110) mg/dL Calcium (8.7-10.3) mg/dL Alkaline Phosphatase (41-126) U/L C-Reactive Protein (0.00-0.80) mg/dL Total Protein (6.2-8.2) g/dL Albumin (3.8-4.9) g/dL Globulin (1.6-3.3) g/dL Albumin/Globulin Ratio (1.60-3.17) Ratio Procalcitonin 0.33 H (0.02-0.09) ng/mL 11/10/23 11/10/23 11/10/23 Range/Units 04:06 04:06 11:26 WBC 13.33 H (4.50-10.00) X 10*3/uL RBC 3.04 L (4.10-5.20) X 10*6/uL Hgb 9.5 L (12.0-15.0) g/dL Hct 31.0 L (37.2-46.3) % MCV 102.0 H (80.0-97.0) FL MCHC 30.6 L (32.0-37.0) g/dL Immature Gran # 0.15 H (0.00-0.04) X 10*3/uL Neutrophils # 9.83 H (1.80-7.70) X 10*3/uL Eosinophils # 0.66 H (0.04-0.35) X 10*3/uL Chloride 93 L (96-109) mmol/L Carbon Dioxide 33.0 H (21.6-31.8) mmol/L Creatinine 0.5 L (0.6-1.5) mg/dL BUN/Creatinine Ratio 21.20 H (12.00-20.00) Ratio POC Glucose (mg/dL) 200 H (70-110) mg/dL Calcium 8.3 L (8.7-10.3) mg/dL Alkaline Phosphatase 131 H (41-126) U/L C-Reactive Protein 12.50 H (0.00-0.80) mg/dL Total Protein 6.0 L (6.2-8.2) g/dL Albumin 2.3 L (3.8-4.9) g/dL Globulin 3.7 H (1.6-3.3) g/dL Albumin/Globulin Ratio 0.62 L (1.60-3.17) Ratio Procalcitonin (0.02-0.09) ng/mL Assessment and Plan Assessment: UTI/sepsis suspected. Procalcitonin level is considerably elevated at 15 initially, currently down to 0.33. Remains on Rocephin and completed Zithromax. Afebrile, hemodynamically stable. Acute hypoxemic respiratory failure, likely secondary to mild exacerbation of diastolic congestive heart failure. Chest x-ray demonstrates cardiomegaly with mild pulmonary vascular congestion and interstitial edema. NT proBNP elevated at 2900. Abdominal CT demonstrated incidental small left lower lobe pleural effusion and possible atelectasis. Pneumonia and parapneumonic effusion felt less likely. Echocardiogram revealed preserved left ventricular systolic function. There is severe pulmonary hypertension with an RVSP of 74 mmHg. Right flank pain, with history of bilateral kidney stones. CT of the abdomen and pelvis without contrast demonstrated stable nonobstructing bilateral renal calcifications. Unremarkable for acute intra-abdominal process Recent outpatient treatment for urinary tract infection, reportedly completed entire course of antibiotics Coronary artery disease with recent history of PCI/stenting of the left circumflex artery on 08/06/2023 Chronic diastolic heart failure, patient is known to have a preserved left ventricular ejection fraction, severe pulmonary hypertension, and moderate to severe tricuspid regurgitation Diabetes mellitus type 2 History of hyperlipidemia History of DVT History of pneumonia, secondary to Pseudomonas Morbid obesity, with a BMI of 40.4 kg/m Plan: The patient was seen and evaluated Chest x-ray, abdominal ultrasound, labs and medications reviewed No significant fluid for thoracentesis on chest x-ray Remains on diuretics, diuresing well Remains on antibiotics Titrate down the FiO2 as tolerated Pulmonary will follow on an as-needed basis This patient was seen independently by the pulmonary nurse practitioner addressing pulmonary issues I have personally seen and examined the patient, performed the documentation and the assessment and plan as written. Number of minutes spent on the visit: 25.
[2023-11-10 16:34] LABS: Glucose,Whole Blood 130 mg/dL (70-110)
--- NOTE | 2023-11-10 18:09 | P.PN ---
Subjective Progress Note Date: 11/10/23 Principal diagnosis: Reason for follow-up is urinary tract infection Patient is a 73-year-old female with a past medical history significant for diabetes mellitus DVT osteoarthritis heart failure pneumonia and UTI presenting to the hospital for evaluation of right-sided flank pain and abdominal area patient did have a positive UA elevated white count urine culture with Sri glabrata prompted this consultation on today's evaluation that is 11/10/2023, the patient continues to be afebrile, the patient is on 6 L nasal cannula oxygen and breathing comfortably, the Pt denies having any chest pain or worsening cough, the patient denies having any abdominal pain no vomiting or any diarrhea has been reported by the nursing staff. Patient white count is 13.3 slightly lower than yesterday creatinine 0.5 Objective - Vital Signs Vital signs: Vital Signs Temp 98.1 F 11/10/23 07:00 Pulse 65 11/10/23 07:00 Resp 15 11/10/23 07:00 BP 110/74 11/10/23 07:00 Pulse Ox 91 L 11/10/23 07:00 FiO2 Intake & Output 11/09/23 11/10/23 11/10/23 18:59 06:59 18:59 Output Total 1500 900 Balance -1500 -900 Output: Urine 1500 900 Other: Voiding Method External Catheter External Catheter Bedside Commode # Voids 1 - Exam GENERAL DESCRIPTION: An elderly female lying in bed in no distress RESPIRATORY SYSTEM: Unlabored breathing , decreased breath sounds at bases HEART: S1 S2 regular rate and rhythm , ABDOMEN: Soft , no tenderness EXTREMITIES: No edema feet - Labs CBC & Chem 7: 11/10/23 04:06 11/10/23 04:06 Labs: Abnormal Lab Results - Last 24 Hours (Table) 11/09/23 11/09/23 11/10/23 Range/Units 16:47 19:59 04:06 WBC (4.50-10.00) X 10*3/uL RBC (4.10-5.20) X 10*6/uL Hgb (12.0-15.0) g/dL Hct (37.2-46.3) % MCV (80.0-97.0) FL MCHC (32.0-37.0) g/dL Immature Gran # (0.00-0.04) X 10*3/uL Neutrophils # (1.80-7.70) X 10*3/uL Eosinophils # (0.04-0.35) X 10*3/uL Chloride (96-109) mmol/L Carbon Dioxide (21.6-31.8) mmol/L Creatinine (0.6-1.5) mg/dL BUN/Creatinine Ratio (12.00-20.00) Ratio POC Glucose (mg/dL) 124 H 205 H (70-110) mg/dL Calcium (8.7-10.3) mg/dL Alkaline Phosphatase (41-126) U/L C-Reactive Protein (0.00-0.80) mg/dL Total Protein (6.2-8.2) g/dL Albumin (3.8-4.9) g/dL Globulin (1.6-3.3) g/dL Albumin/Globulin Ratio (1.60-3.17) Ratio Procalcitonin 0.33 H (0.02-0.09) ng/mL 11/10/23 11/10/23 11/10/23 Range/Units 04:06 04:06 11:26 WBC 13.33 H (4.50-10.00) X 10*3/uL RBC 3.04 L (4.10-5.20) X 10*6/uL Hgb 9.5 L (12.0-15.0) g/dL Hct 31.0 L (37.2-46.3) % MCV 102.0 H (80.0-97.0) FL MCHC 30.6 L (32.0-37.0) g/dL Immature Gran # 0.15 H (0.00-0.04) X 10*3/uL Neutrophils # 9.83 H (1.80-7.70) X 10*3/uL Eosinophils # 0.66 H (0.04-0.35) X 10*3/uL Chloride 93 L (96-109) mmol/L Carbon Dioxide 33.0 H (21.6-31.8) mmol/L Creatinine 0.5 L (0.6-1.5) mg/dL BUN/Creatinine Ratio 21.20 H (12.00-20.00) Ratio POC Glucose (mg/dL) 200 H (70-110) mg/dL Calcium 8.3 L (8.7-10.3) mg/dL Alkaline Phosphatase 131 H (41-126) U/L C-Reactive Protein 12.50 H (0.00-0.80) mg/dL Total Protein 6.0 L (6.2-8.2) g/dL Albumin 2.3 L (3.8-4.9) g/dL Globulin 3.7 H (1.6-3.3) g/dL Albumin/Globulin Ratio 0.62 L (1.60-3.17) Ratio Procalcitonin (0.02-0.09) ng/mL Assessment and Plan (1) UTI (urinary tract infection) Current Visit: Yes Status: Acute Code(s): N39.0 - URINARY TRACT INFECTION, SITE NOT SPECIFIED SNOMED Code(s): 08264461 Plan: 1patient is in the hospital with the flank pain nausea and vomiting did have a positive UA likely concerning for symptomatic UTI/pyelonephritis with urine culture growing Sri glabrata likely etiology of her illness, patient did have a chest x-ray was reported negative for acute infiltrate CT abdominal pelvis did show some left lower lobe infiltrate and effusion questionably complex atelectasis clinically not behaving as pneumonia. 2patient to continue with voriconazole 20 mg p.o. twice daily for her UTI/pyelonephritis repeat a CBC with a.m. lab to make sure the white count is trending down at the bedside multiple questions answered Dictation was produced using [employer] dictation software. please excuse any grammatical, word or spelling errors. Time with Patient: Less than 30
[2023-11-10 20:29] LABS: Glucose,Whole Blood 150 mg/dL (70-110)
[2023-11-11 05:45] LABS: Glucose,Whole Blood 96 mg/dL (70-110)
[2023-11-11 10:01] LABS: Basophils # (A) 0.1 k/uL (0-0.2); Basophils % (A) 0 %; Eosinophils # (A) 0.5 k/uL (0-0.7); Eosinophils % (A) 3 %; Hypochromasia Marked; Lymphocytes # (A) 1.1 k/uL (1.0-4.8); Lymphocytes % (A) 8 %; MCH 30.3 pg (25.0-35.0); MCHC 29.5 g/dL (31.0-37.0); MCV 102.6 fL (80.0-100.0); Macrocytosis Slight; Mean Platelet Volume 7.5; Monocytes # (A) 0.8 k/uL (0-1.0); Monocytes % (A) 6 %; Neutrophils # (A) 11.3 k/uL (1.3-7.7); Neutrophils % (A) 81 %; Platelet Count 470 k/uL (150-450); RBC 3.31 m/uL (3.80-5.40); RDW 14.4 % (11.5-15.5); WBC 13.9 k/uL (3.8-10.6)
[2023-11-11 10:11] LABS: ALT 12 U/L (4-34); AST 23 U/L (14-36); African American GFR (CKD) >90 (>60 ml/min/1.73 sqM); Albumin 2.5 g/dL (3.5-5.0); Albumin/Globulin Ratio 0.7; Alkaline Phosphatase 145 U/L (38-126); Anion Gap 5 mmol/L; Blood Urea Nitrogen 12 mg/dL (7-17); Calcium 8.1 mg/dL (8.4-10.2); Carbon Dioxide 35 mmol/L (22-30); Chloride 93 mmol/L (98-107); Globulin 3.8 g/dL; Glucose 192 mg/dL (74-99); Non-African American GFR(CKD) >90 (>60 ml/min/1.73 sqM); Potassium 3.9 mmol/L (3.5-5.1); Sodium 133 mmol/L (137-145); Total Bilirubin 0.5 mg/dL (0.2-1.3); Total Protein 6.3 g/dL (6.3-8.2)
--- NOTE | 2023-11-11 10:35 | P.PN ---
Subjective Progress Note Date: 11/10/23 This is a 73-year-old female patient who presented to the ER with concerns of chest and abdominal pain that she believes is secondary from pneumonia. Patient reports she was recently treated for UTI outpatient reports that she has had increased weakness and shortness of breath over the past week. Patient has a past medical history of CHF, diabetes mellitus, DVT, I disorder, osteoarthritis, obesity and ex-smoker. Chest x-ray completed in ER showing no acute process. CT of abdomen and pelvis completed showing small left lower lobe infiltrate and pleural effusion small amount of free fluid surrounding the spleen stable nonobstructing bilateral renal calcifications. Troponins negative 3. UA show ing positive for urinary tract infection. ProCalcitonin also elevated at 15.8. Patient was started on IV antibiotics Rocephin and Zithromax. Creatinine 0.56 bun 14 BNP elevated 2920. At this time pulmonary cardiology services will be consulted. Sputum culture ordered. Blood culture ordered. Current vital signs temp 98.7, heart rate 86, respiratory rate 17, blood pressure 111/62 with pulse ox of 92% on 3 L On 11/05/2023 patient's alert and oriented 3. Patient reports generalized weakness and pain. Patient remains on IV Rocephin and Zithromax. Patient also started on IV Lasix per cardiology. Patient denies chest pain.Current vital signs temp 98.1, heart rate 11, respiratory rate 16, blood pressure 122/63 with pulse ox 96% on room air. On 11/06/2023 patient was seen and examined on the medical floor she is alert and oriented x 3 in no apparent distress there is no fever or chills no headache or dizziness no chest pain no shortness of breath at rest she has some shortness of breath with activity, no cough no nausea or vomiting no abdominal pain no diarrhea no urinary symptoms. White blood count is coming down gradually, patient remains on IV Rocephin and IV Zithromax, pulmonary critical care, and cardiology are following, echocardiogram revealed severe pulmonary hypertension. On 11/07/2023 for patient's alert and oriented 3.repeat chest x-ray has been ordered. Patient also started on nystatin for thrush. Incentive spirometer ordered. Patient complaining of constipation will order Colace. Patient remains on IV antibiotics. radiology pulmonary service is following On 11/08/2023 Patient is alert and oriented 3. Repeat chest x-ray completed showing patchy perihilar and left basal infiltrate correlate for pneumonia patient remains on azithromycin and IV Rocephin.Current vital signs temp 98.3, heart rate 90, respiratory rate 18, blood pressure for over 63 with pulse ox of 100% on 4 L On 11/09/2023 patient was seen and examined on the medical floor she is alert and oriented x 3 in no apparent distress there is no fever or chills no headache or dizziness no chest pain no shortness of breath at rest she has some shortness of breath with activity, she has occasional cough, no nausea or vomiting, no diarrhea no urinary symptoms. White blood count is coming down gradually, patient remains on IV Rocephin and IV Zithromax, echocardiogram revealed severe pulmonary hypertension. I will ask pulmonary to reevaluate the patient, she is not feeling better, patient has generalized abdominal pain, will check abdominal ultrasound, consultation for infectious disease was initiated. On 12/10/2023 patient was seen and examined on the medical floor she is alert and oriented x 3 in no apparent distress she is complaining of generalized weakness otherwise she denies any complaints there is no fever or chills no headache or dizziness no chest pain no shortness of breath no cough no nausea or vomiting no abdominal pain no diarrhea and no urinary symptoms, her vital exam reveals a temperature of 98.1 pulse 65 respiration 15 blood pressure 110/74 pulse ox 91% on 6 L nasal cannula, white blood count 13.3 hemoglobin 9.5 platelet count 435 BUN 10.6 creatinine 0.5 chest x-ray reveals evidence of pulmonary venous congestion, echocardiogram reveals severe pulmonary hypertension. Objective - Vital Signs Vital signs: Vital Signs Temp 98.1 F 11/10/23 07:00 Pulse 65 11/10/23 07:00 Resp 15 11/10/23 07:00 BP 110/74 11/10/23 07:00 Pulse Ox 91 L 11/10/23 07:00 FiO2 Intake & Output 11/09/23 11/10/23 11/10/23 18:59 06:59 18:59 Output Total 1500 900 Balance -1500 -900 Output: Urine 1500 900 Other: Voiding Method External Catheter External Catheter Bedside Commode # Voids 1 - Exam Head normocephalic Neck supple Lungs clear to auscultation bilaterally no wheezing or crackles Heart regular rate and rhythm S1-S2, no rub or gallop Abdomen is soft nontender nondistended positive bowel sounds no hepatosplenomegaly Extremities no edema Neuro alert and orientated to 3 - Labs CBC & Chem 7: 11/10/23 04:06 11/10/23 04:06 Labs: Abnormal Lab Results - Last 24 Hours (Table) 11/09/23 11/09/23 11/10/23 Range/Units 16:47 19:59 04:06 WBC (4.50-10.00) X 10*3/uL RBC (4.10-5.20) X 10*6/uL Hgb (12.0-15.0) g/dL Hct (37.2-46.3) % MCV (80.0-97.0) FL MCHC (32.0-37.0) g/dL Immature Gran # (0.00-0.04) X 10*3/uL Neutrophils # (1.80-7.70) X 10*3/uL Eosinophils # (0.04-0.35) X 10*3/uL Chloride (96-109) mmol/L Carbon Dioxide (21.6-31.8) mmol/L Creatinine (0.6-1.5) mg/dL BUN/Creatinine Ratio (12.00-20.00) Ratio POC Glucose (mg/dL) 124 H 205 H (70-110) mg/dL Calcium (8.7-10.3) mg/dL Alkaline Phosphatase (41-126) U/L C-Reactive Protein (0.00-0.80) mg/dL Total Protein (6.2-8.2) g/dL Albumin (3.8-4.9) g/dL Globulin (1.6-3.3) g/dL Albumin/Globulin Ratio (1.60-3.17) Ratio Procalcitonin 0.33 H (0.02-0.09) ng/mL 11/10/23 11/10/23 11/10/23 Range/Units 04:06 04:06 11:26 WBC 13.33 H (4.50-10.00) X 10*3/uL RBC 3.04 L (4.10-5.20) X 10*6/uL Hgb 9.5 L (12.0-15.0) g/dL Hct 31.0 L (37.2-46.3) % MCV 102.0 H (80.0-97.0) FL MCHC 30.6 L (32.0-37.0) g/dL Immature Gran # 0.15 H (0.00-0.04) X 10*3/uL Neutrophils # 9.83 H (1.80-7.70) X 10*3/uL Eosinophils # 0.66 H (0.04-0.35) X 10*3/uL Chloride 93 L (96-109) mmol/L Carbon Dioxide 33.0 H (21.6-31.8) mmol/L Creatinine 0.5 L (0.6-1.5) mg/dL BUN/Creatinine Ratio 21.20 H (12.00-20.00) Ratio POC Glucose (mg/dL) 200 H (70-110) mg/dL Calcium 8.3 L (8.7-10.3) mg/dL Alkaline Phosphatase 131 H (41-126) U/L C-Reactive Protein 12.50 H (0.00-0.80) mg/dL Total Protein 6.0 L (6.2-8.2) g/dL Albumin 2.3 L (3.8-4.9) g/dL Globulin 3.7 H (1.6-3.3) g/dL Albumin/Globulin Ratio 0.62 L (1.60-3.17) Ratio Procalcitonin (0.02-0.09) ng/mL Assessment and Plan Assessment: 1.Chest pain and shortness of breath possibly secondary to acute exacerbation of diastolic congestive heart failure and/or pneumonia 2. Urinary tract infection. Patient did complete outpatient treatment will order urine culture 3. Acute on chronic diastolic congestive heart failure 4. Possible pneumonia seen on computed tomography scan with elevated calcitonin 5. History of coronary artery disease with recent history of PCI to the left circumflex in July 2023 6. History of diabetes mellitus type 2 7. History of hyperlipidemia 8. History of DVT 9. Evidence of severe pulmonary hypertension on echocardiogram 10. History of previous pneumonia secondary to Pseudomonas 11. Oral thrush patient started on nystatin DVT prophylaxis Lovenox. GI prophylaxis Protonix Pulmonary cardiology services consulted Patient started on IV antibiotics Sputum urine and blood cultures ordered Repeat labs ordered PT OT service is consulted
--- NOTE | 2023-11-11 11:05 | P.PN ---
Subjective Progress Note Date: 11/11/23 This is a 73-year-old female patient who presented to the ER with concerns of chest and abdominal pain that she believes is secondary from pneumonia. Patient reports she was recently treated for UTI outpatient reports that she has had increased weakness and shortness of breath over the past week. Patient has a past medical history of CHF, diabetes mellitus, DVT, I disorder, osteoarthritis, obesity and ex-smoker. Chest x-ray completed in ER showing no acute process. CT of abdomen and pelvis completed showing small left lower lobe infiltrate and pleural effusion small amount of free fluid surrounding the spleen stable nonobstructing bilateral renal calcifications. Troponins negative 3. UA show ing positive for urinary tract infection. ProCalcitonin also elevated at 15.8. Patient was started on IV antibiotics Rocephin and Zithromax. Creatinine 0.56 bun 14 BNP elevated 2920. At this time pulmonary cardiology services will be consulted. Sputum culture ordered. Blood culture ordered. Current vital signs temp 98.7, heart rate 86, respiratory rate 17, blood pressure 111/62 with pulse ox of 92% on 3 L On 11/05/2023 patient's alert and oriented 3. Patient reports generalized weakness and pain. Patient remains on IV Rocephin and Zithromax. Patient also started on IV Lasix per cardiology. Patient denies chest pain.Current vital signs temp 98.1, heart rate 11, respiratory rate 16, blood pressure 122/63 with pulse ox 96% on room air. On 11/06/2023 patient was seen and examined on the medical floor she is alert and oriented x 3 in no apparent distress there is no fever or chills no headache or dizziness no chest pain no shortness of breath at rest she has some shortness of breath with activity, no cough no nausea or vomiting no abdominal pain no diarrhea no urinary symptoms. White blood count is coming down gradually, patient remains on IV Rocephin and IV Zithromax, pulmonary critical care, and cardiology are following, echocardiogram revealed severe pulmonary hypertension. On 11/07/2023 for patient's alert and oriented 3.repeat chest x-ray has been ordered. Patient also started on nystatin for thrush. Incentive spirometer ordered. Patient complaining of constipation will order Colace. Patient remains on IV antibiotics. radiology pulmonary service is following On 11/08/2023 Patient is alert and oriented 3. Repeat chest x-ray completed showing patchy perihilar and left basal infiltrate correlate for pneumonia patient remains on azithromycin and IV Rocephin.Current vital signs temp 98.3, heart rate 90, respiratory rate 18, blood pressure for over 63 with pulse ox of 100% on 4 L On 11/09/2023 patient was seen and examined on the medical floor she is alert and oriented x 3 in no apparent distress there is no fever or chills no headache or dizziness no chest pain no shortness of breath at rest she has some shortness of breath with activity, she has occasional cough, no nausea or vomiting, no diarrhea no urinary symptoms. White blood count is coming down gradually, patient remains on IV Rocephin and IV Zithromax, echocardiogram revealed severe pulmonary hypertension. I will ask pulmonary to reevaluate the patient, she is not feeling better, patient has generalized abdominal pain, will check abdominal ultrasound, consultation for infectious disease was initiated. On 12/10/2023 patient was seen and examined on the medical floor she is alert and oriented x 3 in no apparent distress she is complaining of generalized weakness otherwise she denies any complaints there is no fever or chills no headache or dizziness no chest pain no shortness of breath no cough no nausea or vomiting no abdominal pain no diarrhea and no urinary symptoms, her vital exam reveals a temperature of 98.1 pulse 65 respiration 15 blood pressure 110/74 pulse ox 91% on 6 L nasal cannula, white blood count 13.3 hemoglobin 9.5 platelet count 435 BUN 10.6 creatinine 0.5 chest x-ray reveals evidence of pulmonary venous congestion, echocardiogram reveals severe pulmonary hypertension. On 11/11/2023 patient is alert and oriented 3. Patient planning to some nausea this morning Zofran ordered. Patient remains on IV antibiotics.current vital signs temp 97.8, heart rate 89, respiratory rate 15, blood pressure 119/73 with a pulse ox of 93% on 5 L. Objective - Vital Signs Vital signs: Vital Signs Temp 97.8 F 11/11/23 07:27 Pulse 89 11/11/23 07:27 Resp 15 11/11/23 07:27 BP 119/73 11/11/23 07:27 Pulse Ox 95 11/11/23 09:41 FiO2 Intake & Output 11/10/23 11/11/23 11/11/23 18:59 06:59 18:59 Output Total 1000 Balance -1000 Output: Urine 1000 Other: Voiding Method Bedside Commode External Catheter Bedside Commode # Voids 5 # Bowel Movements 2 - Exam Head normocephalic Neck supple Lungs clear to auscultation bilaterally no wheezing or crackles Heart regular rate and rhythm S1-S2, no rub or gallop Abdomen is soft nontender nondistended positive bowel sounds no hepatosplenomegaly Extremities no edema Neuro alert and orientated to 3 - Labs CBC & Chem 7: 11/11/23 09:31 11/11/23 09:31 Labs: Abnormal Lab Results - Last 24 Hours (Table) 11/10/23 11/10/23 11/10/23 Range/Units 11:26 16:33 20:26 WBC (3.8-10.6) k/uL RBC (3.80-5.40) m/uL Hgb (11.4-16.0) gm/dL MCV (80.0-100.0) fL MCHC (31.0-37.0) g/dL Plt Count (150-450) k/uL Neutrophils # (1.3-7.7) k/uL Sodium (137-145) mmol/L Chloride (98-107) mmol/L Carbon Dioxide (22-30) mmol/L Glucose (74-99) mg/dL POC Glucose (mg/dL) 200 H 130 H 150 H (70-110) mg/dL Calcium (8.4-10.2) mg/dL Alkaline Phosphatase (38-126) U/L Albumin (3.5-5.0) g/dL 11/11/23 11/11/23 Range/Units 09:31 09:31 WBC 13.9 H (3.8-10.6) k/uL RBC 3.31 L (3.80-5.40) m/uL Hgb 10.0 L (11.4-16.0) gm/dL MCV 102.6 H (80.0-100.0) fL MCHC 29.5 L (31.0-37.0) g/dL Plt Count 470 H (150-450) k/uL Neutrophils # 11.3 H (1.3-7.7) k/uL Sodium 133 L (137-145) mmol/L Chloride 93 L (98-107) mmol/L Carbon Dioxide 35 H (22-30) mmol/L Glucose 192 H (74-99) mg/dL POC Glucose (mg/dL) (70-110) mg/dL Calcium 8.1 L (8.4-10.2) mg/dL Alkaline Phosphatase 145 H (38-126) U/L Albumin 2.5 L (3.5-5.0) g/dL Assessment and Plan Assessment: 1.Chest pain and shortness of breath possibly secondary to acute exacerbation of diastolic congestive heart failure and/or pneumonia 2. Urinary tract infection. Patient did complete outpatient treatment will order urine culture 3. Acute on chronic diastolic congestive heart failure 4. Possible pneumonia seen on computed tomography scan with elevated calcitonin 5. History of coronary artery disease with recent history of PCI to the left circumflex in July 2023 6. History of diabetes mellitus type 2 7. History of hyperlipidemia 8. History of DVT 9. Evidence of severe pulmonary hypertension on echocardiogram 10. History of previous pneumonia secondary to Pseudomonas 11. Oral thrush patient started on nystatin DVT prophylaxis Lovenox. GI prophylaxis Protonix Pulmonary cardiology services consulted Patient started on IV antibiotics Sputum urine and blood cultures ordered Repeat labs ordered PT OT service is consulted
[2023-11-11 11:26] LABS: Glucose,Whole Blood 113 mg/dL (70-110)
[2023-11-11 11:56] LABS: Appearance,Urine Clear (Clear); Bacteria,Urine Many /hpf; Bilirubin,Urine Negative (Negative); Blood,Urine Trace (Negative); Budding Yeast,Urine Occasional /hpf; Color,Urine Light Yellow; Glucose,Urine (UA) 3+ (Negative); Ketones,Urine Negative (Negative); Leukocyte Esterase,Urine Large (Negative); Nitrite,Urine Negative (Negative); PH, Urine 6.5 (5.0-8.0); Protein,Urine Trace (Negative); RBC,Urine 1 /hpf (0-5); Specific Gravity,Urine 1.013 (1.001-1.035); Squamous Epithelial Cell,Urine 1 /hpf (0-4); Urobilinogen,Urine <2.0 mg/dL (<2.0); WBC,Urine 65 /hpf (0-5)
[2023-11-11 16:44] LABS: Glucose,Whole Blood 124 mg/dL (70-110)
[2023-11-11 20:33] LABS: Glucose,Whole Blood 160 mg/dL (70-110)
[2023-11-12 06:00] LABS: Glucose,Whole Blood 88 mg/dL (70-110)
[2023-11-12 09:38] VITALS: BMI 40.3
--- NOTE | 2023-11-12 10:38 | P.PN ---
Subjective Progress Note Date: 11/12/23 This is a 73-year-old female patient who presented to the ER with concerns of chest and abdominal pain that she believes is secondary from pneumonia. Patient reports she was recently treated for UTI outpatient reports that she has had increased weakness and shortness of breath over the past week. Patient has a past medical history of CHF, diabetes mellitus, DVT, I disorder, osteoarthritis, obesity and ex-smoker. Chest x-ray completed in ER showing no acute process. CT of abdomen and pelvis completed showing small left lower lobe infiltrate and pleural effusion small amount of free fluid surrounding the spleen stable nonobstructing bilateral renal calcifications. Troponins negative 3. UA show ing positive for urinary tract infection. ProCalcitonin also elevated at 15.8. Patient was started on IV antibiotics Rocephin and Zithromax. Creatinine 0.56 bun 14 BNP elevated 2920. At this time pulmonary cardiology services will be consulted. Sputum culture ordered. Blood culture ordered. Current vital signs temp 98.7, heart rate 86, respiratory rate 17, blood pressure 111/62 with pulse ox of 92% on 3 L On 11/05/2023 patient's alert and oriented 3. Patient reports generalized weakness and pain. Patient remains on IV Rocephin and Zithromax. Patient also started on IV Lasix per cardiology. Patient denies chest pain.Current vital signs temp 98.1, heart rate 11, respiratory rate 16, blood pressure 122/63 with pulse ox 96% on room air. On 11/06/2023 patient was seen and examined on the medical floor she is alert and oriented x 3 in no apparent distress there is no fever or chills no headache or dizziness no chest pain no shortness of breath at rest she has some shortness of breath with activity, no cough no nausea or vomiting no abdominal pain no diarrhea no urinary symptoms. White blood count is coming down gradually, patient remains on IV Rocephin and IV Zithromax, pulmonary critical care, and cardiology are following, echocardiogram revealed severe pulmonary hypertension. On 11/07/2023 for patient's alert and oriented 3.repeat chest x-ray has been ordered. Patient also started on nystatin for thrush. Incentive spirometer ordered. Patient complaining of constipation will order Colace. Patient remains on IV antibiotics. radiology pulmonary service is following On 11/08/2023 Patient is alert and oriented 3. Repeat chest x-ray completed showing patchy perihilar and left basal infiltrate correlate for pneumonia patient remains on azithromycin and IV Rocephin.Current vital signs temp 98.3, heart rate 90, respiratory rate 18, blood pressure for over 63 with pulse ox of 100% on 4 L On 11/09/2023 patient was seen and examined on the medical floor she is alert and oriented x 3 in no apparent distress there is no fever or chills no headache or dizziness no chest pain no shortness of breath at rest she has some shortness of breath with activity, she has occasional cough, no nausea or vomiting, no diarrhea no urinary symptoms. White blood count is coming down gradually, patient remains on IV Rocephin and IV Zithromax, echocardiogram revealed severe pulmonary hypertension. I will ask pulmonary to reevaluate the patient, she is not feeling better, patient has generalized abdominal pain, will check abdominal ultrasound, consultation for infectious disease was initiated. On 12/10/2023 patient was seen and examined on the medical floor she is alert and oriented x 3 in no apparent distress she is complaining of generalized weakness otherwise she denies any complaints there is no fever or chills no headache or dizziness no chest pain no shortness of breath no cough no nausea or vomiting no abdominal pain no diarrhea and no urinary symptoms, her vital exam reveals a temperature of 98.1 pulse 65 respiration 15 blood pressure 110/74 pulse ox 91% on 6 L nasal cannula, white blood count 13.3 hemoglobin 9.5 platelet count 435 BUN 10.6 creatinine 0.5 chest x-ray reveals evidence of pulmonary venous congestion, echocardiogram reveals severe pulmonary hypertension. On 11/11/2023 patient is alert and oriented 3. Patient planning to some nausea this morning Zofran ordered. Patient remains on IV antibiotics.current vital signs temp 97.8, heart rate 89, respiratory rate 15, blood pressure 119/73 with a pulse ox of 93% on 5 L. On 11/12/2023 patient is alert and oriented 3. Patient reports improvement with nausea. Repeat labs pending. Infectious disease services is following patient remains on by mouth antibiotic. Current vital signs temp 97.8, heart rate 68, respiratory rate 15, blood pressure 97/62 with a pulse ox of 94% on 5 L. Objective - Vital Signs Vital signs: Vital Signs Temp 97.8 F 11/12/23 07:11 Pulse 68 11/12/23 07:11 Resp 15 11/12/23 07:11 BP 97/62 11/12/23 07:11 Pulse Ox 94 L 11/12/23 07:11 FiO2 Intake & Output 11/11/23 11/12/23 11/12/23 18:59 06:59 18:59 Output Total 500 Balance -500 Weight 113.398 kg Output: Urine 500 Other: Voiding Method Bedside Commode Bedside Commode External Catheter # Voids 4 # Bowel Movements 1 - Exam Head normocephalic Neck supple Lungs clear to auscultation bilaterally no wheezing or crackles Heart regular rate and rhythm S1-S2, no rub or gallop Abdomen is soft nontender nondistended positive bowel sounds no hepatosplenomegaly Extremities no edema Neuro alert and orientated to 3 - Labs CBC & Chem 7: 11/11/23 09:31 11/11/23 09:31 Labs: Abnormal Lab Results - Last 24 Hours (Table) 11/11/23 11/11/23 11/11/23 Range/Units 11:25 11:30 16:43 POC Glucose (mg/dL) 113 H 124 H (70-110) mg/dL Urine Protein Trace H (Negative) Urine Glucose (UA) 3+ H (Negative) Urine Blood Trace H (Negative) Ur Leukocyte Esterase Large H (Negative) Urine WBC 65 H (0-5) /hpf Urine Bacteria Many H (None) /hpf Urine Yeast (Budding) Occasional H (None) /hpf 11/11/23 Range/Units 19:58 POC Glucose (mg/dL) 160 H (70-110) mg/dL Urine Protein (Negative) Urine Glucose (UA) (Negative) Urine Blood (Negative) Ur Leukocyte Esterase (Negative) Urine WBC (0-5) /hpf Urine Bacteria (None) /hpf Urine Yeast (Budding) (None) /hpf Assessment and Plan Assessment: 1.Chest pain and shortness of breath possibly secondary to acute exacerbation of diastolic congestive heart failure and/or pneumonia 2. Urinary tract infection. Patient did complete outpatient treatment will order urine culture 3. Acute on chronic diastolic congestive heart failure 4. Possible pneumonia seen on computed tomography scan with elevated calcitonin 5. History of coronary artery disease with recent history of PCI to the left circumflex in July 2023 6. History of diabetes mellitus type 2 7. History of hyperlipidemia 8. History of DVT 9. Evidence of severe pulmonary hypertension on echocardiogram 10. History of previous pneumonia secondary to Pseudomonas 11. Oral thrush patient started on nystatin DVT prophylaxis Lovenox. GI prophylaxis Protonix Infectious disease service is following Sputum urine and blood cultures ordered Repeat labs ordered PT OT service is consulted
[2023-11-12 11:07] LABS: Glucose,Whole Blood 185 mg/dL (70-110)
[2023-11-12 11:16] LABS: Basophils # (A) 0.1 k/uL (0-0.2); Basophils % (A) 1 %; Eosinophils # (A) 0.4 k/uL (0-0.7); Eosinophils % (A) 3 %; HCT 32.2 % (34.0-46.0); HGB 9.6 gm/dL (11.4-16.0); Hypochromasia Marked; Lymphocytes % (A) 8 %; MCH 30.2 pg (25.0-35.0); MCHC 29.8 g/dL (31.0-37.0); MCV 101.1 fL (80.0-100.0); Macrocytosis Slight; Mean Platelet Volume 7.6; Monocytes # (A) 0.8 k/uL (0-1.0); Monocytes % (A) 7 %; Neutrophils # (A) 10.1 k/uL (1.3-7.7); Neutrophils % (A) 81 %; Platelet Count 436 k/uL (150-450); RBC 3.18 m/uL (3.80-5.40); RDW 14.5 % (11.5-15.5); WBC 12.5 k/uL (3.8-10.6)
[2023-11-12 12:10] LABS: ALT 13 U/L (4-34); AST 18 U/L (14-36); African American GFR (CKD) >90 (>60 ml/min/1.73 sqM); Albumin 2.4 g/dL (3.5-5.0); Albumin/Globulin Ratio 0.7; Alkaline Phosphatase 147 U/L (38-126); Anion Gap 4 mmol/L; Blood Urea Nitrogen 13 mg/dL (7-17); Calcium 7.8 mg/dL (8.4-10.2); Carbon Dioxide 33 mmol/L (22-30); Chloride 95 mmol/L (98-107); Globulin 3.6 g/dL; Glucose 203 mg/dL (74-99); Non-African American GFR(CKD) >90 (>60 ml/min/1.73 sqM); Potassium 3.9 mmol/L (3.5-5.1); Sodium 132 mmol/L (137-145); Total Bilirubin 0.5 mg/dL (0.2-1.3)
[2023-11-12 16:20] LABS: Glucose,Whole Blood 140 mg/dL (70-110)
[2023-11-12 20:38] LABS: Glucose,Whole Blood 170 mg/dL (70-110)
[2023-11-13 06:12] LABS: Glucose,Whole Blood 94 mg/dL (70-110)
[2023-11-13 10:52] LABS: Basophils # (A) 0.07 X 10*3/uL (0.00-0.10); Basophils % (A) 0.6 %; Eosinophils # (A) 0.47 X 10*3/uL (0.04-0.35); Eosinophils % (A) 4.4 %; HCT 29.8 % (37.2-46.3); HGB 8.6 g/dL (12.0-15.0); Lymphocytes # (A) 1.37 X 10*3/uL (0.90-5.00); Lymphocytes % (A) 12.7 %; MCH 29.6 pg (27.0-32.0); MCHC 28.9 g/dL (32.0-37.0); MCV 102.4 FL (80.0-97.0); Mean Platelet Volume 10.2 FL (9.5-12.2); Monocytes # (A) 0.79 X 10*3/uL (0.20-1.00); Monocytes % (A) 7.3 %; NRBC Per 100 WBC 0 X 10*3/uL (0.00-0.01); Neutrophils # (A) 7.97 X 10*3/uL (1.80-7.70); Neutrophils % (A) 73.8 %; Platelet Count 387 X 10*3/uL (140-440); RBC 2.91 X 10*6/uL (4.10-5.20); RDW 14.4 % (11.5-14.5)
[2023-11-13 11:10] LABS: ALT 11 U/L (8-44); AST 20 U/L (13-35); Albumin 2.4 g/dL (3.8-4.9); Albumin/Globulin Ratio 0.62 Ratio (1.60-3.17); Alkaline Phosphatase 118 U/L (41-126); Blood Urea Nitrogen 10.8 mg/dL (9.0-27.0); Calcium 8.2 mg/dL (8.7-10.3); Carbon Dioxide 30.7 mmol/L (21.6-31.8); Chloride 95 mmol/L (96-109); Globulin 3.9 g/dL (1.6-3.3); Glucose 83 mg/dL (70-110); Potassium 4.5 mmol/L (3.5-5.5); Sodium 138 mmol/L (135-145); Total Bilirubin 0.3 mg/dL (0.3-1.2); Total Protein 6.3 g/dL (6.2-8.2)
[2023-11-13] MEDS ORDERED: VANCOMYCIN IV PER PHARMACY 1 EACH MISC MISCELLANE PRN (11:13)
[2023-11-13 11:34] LABS: Glucose,Whole Blood 191 mg/dL (70-110)
[2023-11-13] MEDS ORDERED: CALAMINE/ZINC OXIDE LOTION 177 ML BTL TOPICAL PRN (12:15)
[2023-11-13] MEDS: VANCOMYCIN 1,750 MG in SODIUM CHLORIDE 0.9% 500 ML 500 ML IVPB SCH (13:46)
--- NOTE | 2023-11-13 16:15 | P.PN ---
Subjective Progress Note Date: 11/11/23 Principal diagnosis: Reason for follow-up is urinary tract infection Patient is a 73-year-old female with a past medical history significant for diabetes mellitus DVT osteoarthritis heart failure pneumonia and UTI presenting to the hospital for evaluation of right-sided flank pain and abdominal area patient did have a positive UA elevated white count urine culture with Sri glabrata prompted this consultation on today's evaluation that is 11/11/2023, Patient is afebrile patient is currently on 5 L nasal cannula oxygen and denies having any shortness of breath, the patient denies any chest pain or cough, the patient denies any nausea vomiting complaining of some lower rib cage flank pain no diarrhea. Patient white count is 13.9 creatinine 0.52 Objective - Vital Signs Vital signs: Vital Signs Temp 97.8 F 11/11/23 07:27 Pulse 89 11/11/23 07:27 Resp 15 11/11/23 07:27 BP 119/73 11/11/23 07:27 Pulse Ox 95 11/11/23 09:41 FiO2 Intake & Output 11/10/23 11/11/23 11/11/23 18:59 06:59 18:59 Output Total 1000 Balance -1000 Output: Urine 1000 Other: Voiding Method Bedside Commode External Catheter Bedside Commode # Voids 5 # Bowel Movements 2 - Exam GENERAL DESCRIPTION: An elderly female lying in bed in no distress RESPIRATORY SYSTEM: Unlabored breathing , decreased breath sounds at bases HEART: S1 S2 regular rate and rhythm , ABDOMEN: Soft , no tenderness EXTREMITIES: No edema feet - Labs CBC & Chem 7: 11/13/23 06:59 11/13/23 06:59 Labs: Abnormal Lab Results - Last 24 Hours (Table) 11/10/23 11/10/23 11/10/23 Range/Units 11:26 16:33 20:26 WBC (3.8-10.6) k/uL RBC (3.80-5.40) m/uL Hgb (11.4-16.0) gm/dL MCV (80.0-100.0) fL MCHC (31.0-37.0) g/dL Plt Count (150-450) k/uL Neutrophils # (1.3-7.7) k/uL Sodium (137-145) mmol/L Chloride (98-107) mmol/L Carbon Dioxide (22-30) mmol/L Glucose (74-99) mg/dL POC Glucose (mg/dL) 200 H 130 H 150 H (70-110) mg/dL Calcium (8.4-10.2) mg/dL Alkaline Phosphatase (38-126) U/L Albumin (3.5-5.0) g/dL 11/11/23 11/11/23 Range/Units 09:31 09:31 WBC 13.9 H (3.8-10.6) k/uL RBC 3.31 L (3.80-5.40) m/uL Hgb 10.0 L (11.4-16.0) gm/dL MCV 102.6 H (80.0-100.0) fL MCHC 29.5 L (31.0-37.0) g/dL Plt Count 470 H (150-450) k/uL Neutrophils # 11.3 H (1.3-7.7) k/uL Sodium 133 L (137-145) mmol/L Chloride 93 L (98-107) mmol/L Carbon Dioxide 35 H (22-30) mmol/L Glucose 192 H (74-99) mg/dL POC Glucose (mg/dL) (70-110) mg/dL Calcium 8.1 L (8.4-10.2) mg/dL Alkaline Phosphatase 145 H (38-126) U/L Albumin 2.5 L (3.5-5.0) g/dL Assessment and Plan (1) UTI (urinary tract infection) Current Visit: Yes Status: Acute Code(s): N39.0 - URINARY TRACT INFECTION, SITE NOT SPECIFIED SNOMED Code(s): 07099707 Plan: 1patient is in the hospital with the flank pain nausea and vomiting did have a positive UA likely concerning for symptomatic UTI/pyelonephritis with urine culture growing Sri glabrata likely etiology of her illness, patient did have a chest x-ray was reported negative for acute infiltrate CT abdominal pelvis did show some left lower lobe infiltrate and effusion questionably complex atelectasis clinically not behaving as pneumonia. 2patient to continue with voriconazole 200 mg p.o. twice daily for her UTI/pyelonephritis keeping in mind the white count still elevated we will repeat a UA discontinue Rocephin Dictation was produced using [employer] dictation software. please excuse any g rammatical, word or spelling errors. Time with Patient: Less than 30
--- NOTE | 2023-11-13 16:16 | P.PN ---
Subjective Progress Note Date: 11/12/23 Principal diagnosis: Reason for follow-up is urinary tract infection Patient is a 73-year-old female with a past medical history significant for diabetes mellitus DVT osteoarthritis heart failure pneumonia and UTI presenting to the hospital for evaluation of right-sided flank pain and abdominal area patient did have a positive UA elevated white count urine culture with Sri glabrata prompted this consultation on today's evaluation that is 11/12/2023, patient has been afebrile, patient is breathing comfortably and is currently on 4 L nasal cannula oxygen, patient denies having any significant cough no chest pain shortness of breath, patient denies nausea vomiting or diarrhea complaining of some flank pain. Patient white count is down to 12.5, creatinine 0.5 4 repeat UA did show improvement Objective - Vital Signs Vital signs: Vital Signs Temp 97.8 F 11/12/23 07:11 Pulse 68 11/12/23 07:11 Resp 15 11/12/23 07:11 BP 97/62 11/12/23 07:11 Pulse Ox 94 L 11/12/23 07:11 FiO2 Intake & Output 11/11/23 11/12/23 11/12/23 18:59 06:59 18:59 Output Total 500 Balance -500 Weight 113.398 kg Output: Urine 500 Other: Voiding Method Bedside Commode Bedside Commode External Catheter # Voids 4 # Bowel Movements 1 - Exam GENERAL DESCRIPTION: An elderly female lying in bed in no distress RESPIRATORY SYSTEM: Unlabored breathing , decreased breath sounds at bases HEART: S1 S2 regular rate and rhythm , ABDOMEN: Soft , no tenderness EXTREMITIES: No edema feet - Labs CBC & Chem 7: 11/13/23 06:59 11/13/23 06:59 Labs: Abnormal Lab Results - Last 24 Hours (Table) 11/11/23 11/11/23 11/11/23 Range/Units 09:31 09:31 11:25 WBC 13.9 H (3.8-10.6) k/uL RBC 3.31 L (3.80-5.40) m/uL Hgb 10.0 L (11.4-16.0) gm/dL MCV 102.6 H (80.0-100.0) fL MCHC 29.5 L (31.0-37.0) g/dL Plt Count 470 H (150-450) k/uL Neutrophils # 11.3 H (1.3-7.7) k/uL Sodium 133 L (137-145) mmol/L Chloride 93 L (98-107) mmol/L Carbon Dioxide 35 H (22-30) mmol/L Glucose 192 H (74-99) mg/dL POC Glucose (mg/dL) 113 H (70-110) mg/dL Calcium 8.1 L (8.4-10.2) mg/dL Alkaline Phosphatase 145 H (38-126) U/L Albumin 2.5 L (3.5-5.0) g/dL Urine Protein (Negative) Urine Glucose (UA) (Negative) Urine Blood (Negative) Ur Leukocyte Esterase (Negative) Urine WBC (0-5) /hpf Urine Bacteria (None) /hpf Urine Yeast (Budding) (None) /hpf 11/11/23 11/11/23 11/11/23 Range/Units 11:30 16:43 19:58 WBC (3.8-10.6) k/uL RBC (3.80-5.40) m/uL Hgb (11.4-16.0) gm/dL MCV (80.0-100.0) fL MCHC (31.0-37.0) g/dL Plt Count (150-450) k/uL Neutrophils # (1.3-7.7) k/uL Sodium (137-145) mmol/L Chloride (98-107) mmol/L Carbon Dioxide (22-30) mmol/L Glucose (74-99) mg/dL POC Glucose (mg/dL) 124 H 160 H (70-110) mg/dL Calcium (8.4-10.2) mg/dL Alkaline Phosphatase (38-126) U/L Albumin (3.5-5.0) g/dL Urine Protein Trace H (Negative) Urine Glucose (UA) 3+ H (Negative) Urine Blood Trace H (Negative) Ur Leukocyte Esterase Large H (Negative) Urine WBC 65 H (0-5) /hpf Urine Bacteria Many H (None) /hpf Urine Yeast (Budding) Occasional H (None) /hpf Assessment and Plan (1) UTI (urinary tract infection) Current Visit: Yes Status: Acute Code(s): N39.0 - URINARY TRACT INFECTION, SITE NOT SPECIFIED SNOMED Code(s): 91073014 Plan: 1patient is in the hospital with the flank pain nausea and vomiting did have a positive UA likely concerning for symptomatic UTI/pyelonephritis with urine culture growing Sri glabrata likely etiology of her illness, patient did have a chest x-ray was reported negative for acute infiltrate CT abdominal pelvis did show some left lower lobe infiltrate and effusion questionably complex atelectasis clinically not behaving as pneumonia. 2patient did have some improvement of white count as well as improvement her UA, patient to continue with voriconazole 200 mg p.o. twice daily while waiting for repeat urine culture to finalize Dictation was produced using [employer] dictation software. please excuse any grammatical, word or spelling errors. Time with Patient: Less than 30
--- NOTE | 2023-11-13 16:17 | P.PN ---
Subjective Progress Note Date: 11/13/23 Principal diagnosis: Reason for follow-up is urinary tract infection Patient is a 73-year-old female with a past medical history significant for diabetes mellitus DVT osteoarthritis heart failure pneumonia and UTI presenting to the hospital for evaluation of right-sided flank pain and abdominal area patient did have a positive UA elevated white count urine culture with Sri glabrata prompted this consultation on today's evaluation that is 11/13/2023, Patient is afebrile this morning and denies any chills, patient mention breathing comfortably and is currently on 4 L nasal cannula oxygen, patient denies any chest pain occasional cough patient denies nausea no vomiting however has been complaining of mostly pain to lower back flank area mostly with movement. Patient white count is down to 10.80, creatinine 0.6 urine not showing Enterococcus Objective - Vital Signs Vital signs: Vital Signs Temp 98.1 F 11/13/23 07:11 Pulse 95 11/13/23 07:11 Resp 17 11/13/23 07:11 BP 107/70 11/13/23 07:11 Pulse Ox 90 L 11/13/23 07:11 FiO2 Intake & Output 11/12/23 11/13/23 11/13/23 18:59 06:59 18:59 Output Total 300 Balance -300 Weight 113.398 kg Output: Urine 300 Other: Voiding Method Bedside Commode Bedside Commode External Catheter External Catheter # Voids 4 # Bowel Movements 2 - Exam GENERAL DESCRIPTION: An elderly female lying in bed in no distress RESPIRATORY SYSTEM: Unlabored breathing , decreased breath sounds at bases HEART: S1 S2 regular rate and rhythm , ABDOMEN: Soft , no tenderness EXTREMITIES: No edema feet - Labs CBC & Chem 7: 11/13/23 06:59 11/13/23 06:59 Labs: Abnormal Lab Results - Last 24 Hours (Table) 11/12/23 11/12/23 11/12/23 Range/Units 10:49 10:49 16:18 WBC 12.5 H (3.8-10.6) k/uL RBC 3.18 L (3.80-5.40) m/uL Hgb 9.6 L (11.4-16.0) gm/dL Hct 32.2 L (34.0-46.0) % MCV 101.1 H (80.0-100.0) fL MCHC 29.8 L (31.0-37.0) g/dL Immature Gran # (0.00-0.04) X 10*3/uL Neutrophils # 10.1 H (1.3-7.7) k/uL Eosinophils # (0.04-0.35) X 10*3/uL Sodium 132 L (137-145) mmol/L Chloride 95 L (98-107) mmol/L Carbon Dioxide 33 H (22-30) mmol/L Anion Gap (4.00-12.00) mmol/L Glucose 203 H (74-99) mg/dL POC Glucose (mg/dL) 140 H (70-110) mg/dL Calcium 7.8 L (8.4-10.2) mg/dL Alkaline Phosphatase 147 H (38-126) U/L Total Protein 6.0 L (6.3-8.2) g/dL Albumin 2.4 L (3.5-5.0) g/dL Globulin (1.6-3.3) g/dL Albumin/Globulin Ratio (1.60-3.17) Ratio 11/12/23 11/13/23 11/13/23 Range/Units 20:37 06:59 06:59 WBC 10.80 H (3.8-10.6) k/uL RBC 2.91 L (3.80-5.40) m/uL Hgb 8.6 L (11.4-16.0) gm/dL Hct 29.8 L (34.0-46.0) % MCV 102.4 H (80.0-100.0) fL MCHC 28.9 L (31.0-37.0) g/dL Immature Gran # 0.13 H (0.00-0.04) X 10*3/uL Neutrophils # 7.97 H (1.3-7.7) k/uL Eosinophils # 0.47 H (0.04-0.35) X 10*3/uL Sodium (137-145) mmol/L Chloride 95 L (98-107) mmol/L Carbon Dioxide (22-30) mmol/L Anion Gap 12.30 H (4.00-12.00) mmol/L Glucose (74-99) mg/dL POC Glucose (mg/dL) 170 H (70-110) mg/dL Calcium 8.2 L (8.4-10.2) mg/dL Alkaline Phosphatase (38-126) U/L Total Protein (6.3-8.2) g/dL Albumin 2.4 L (3.5-5.0) g/dL Globulin 3.9 H (1.6-3.3) g/dL Albumin/Globulin Ratio 0.62 L (1.60-3.17) Ratio Microbiology - Last 24 Hours (Table) 11/11/23 11:30 Urine Culture - Preliminary Urine,Voided Group D Enterococcus Assessment and Plan (1) UTI (urinary tract infection) Current Visit: Yes Status: Acute Code(s): N39.0 - URINARY TRACT INFECTION, SITE NOT SPECIFIED SNOMED Code(s): 32369256 Plan: 1patient is in the hospital with the flank pain nausea and vomiting did have a positive UA likely concerning for symptomatic UTI/pyelonephritis with urine culture growing Sri glabrata likely etiology of her illness, patient did have a chest x-ray was reported negative for acute infiltrate CT abdominal pelvis did show some left lower lobe infiltrate and effusion questionably complex atelectasis clinically not behaving as pneumonia. 2patient did have improvement her white count urine is now growing Enterococcus sensitivities pending patient is allergic to amoxicillin we will add vancomycin while waiting for sensitivity finalized to determine her discharge antibiotic discussed with the admitting physician Dictation was produced using [employer] dictation software. please excuse any grammatical, word or spelling errors. Time with Patient: Less than 30
[2023-11-13 16:22] LABS: Glucose,Whole Blood 120 mg/dL (70-110)
--- NOTE | 2023-11-13 17:34 | P.PN ---
Subjective Progress Note Date: 11/13/23 This is a 73-year-old female patient who presented to the ER with concerns of chest and abdominal pain that she believes is secondary from pneumonia. Patient reports she was recently treated for UTI outpatient reports that she has had increased weakness and shortness of breath over the past week. Patient has a past medical history of CHF, diabetes mellitus, DVT, I disorder, osteoarthritis, obesity and ex-smoker. Chest x-ray completed in ER showing no acute process. CT of abdomen and pelvis completed showing small left lower lobe infiltrate and pleural effusion small amount of free fluid surrounding the spleen stable nonobstructing bilateral renal calcifications. Troponins negative 3. UA show ing positive for urinary tract infection. ProCalcitonin also elevated at 15.8. Patient was started on IV antibiotics Rocephin and Zithromax. Creatinine 0.56 bun 14 BNP elevated 2920. At this time pulmonary cardiology services will be consulted. Sputum culture ordered. Blood culture ordered. Current vital signs temp 98.7, heart rate 86, respiratory rate 17, blood pressure 111/62 with pulse ox of 92% on 3 L On 11/05/2023 patient's alert and oriented 3. Patient reports generalized weakness and pain. Patient remains on IV Rocephin and Zithromax. Patient also started on IV Lasix per cardiology. Patient denies chest pain.Current vital signs temp 98.1, heart rate 11, respiratory rate 16, blood pressure 122/63 with pulse ox 96% on room air. On 11/06/2023 patient was seen and examined on the medical floor she is alert and oriented x 3 in no apparent distress there is no fever or chills no headache or dizziness no chest pain no shortness of breath at rest she has some shortness of breath with activity, no cough no nausea or vomiting no abdominal pain no diarrhea no urinary symptoms. White blood count is coming down gradually, patient remains on IV Rocephin and IV Zithromax, pulmonary critical care, and cardiology are following, echocardiogram revealed severe pulmonary hypertension. On 11/07/2023 for patient's alert and oriented 3.repeat chest x-ray has been ordered. Patient also started on nystatin for thrush. Incentive spirometer ordered. Patient complaining of constipation will order Colace. Patient remains on IV antibiotics. radiology pulmonary service is following On 11/08/2023 Patient is alert and oriented 3. Repeat chest x-ray completed showing patchy perihilar and left basal infiltrate correlate for pneumonia patient remains on azithromycin and IV Rocephin.Current vital signs temp 98.3, heart rate 90, respiratory rate 18, blood pressure for over 63 with pulse ox of 100% on 4 L On 11/09/2023 patient was seen and examined on the medical floor she is alert and oriented x 3 in no apparent distress there is no fever or chills no headache or dizziness no chest pain no shortness of breath at rest she has some shortness of breath with activity, she has occasional cough, no nausea or vomiting, no diarrhea no urinary symptoms. White blood count is coming down gradually, patient remains on IV Rocephin and IV Zithromax, echocardiogram revealed severe pulmonary hypertension. I will ask pulmonary to reevaluate the patient, she is not feeling better, patient has generalized abdominal pain, will check abdominal ultrasound, consultation for infectious disease was initiated. On 12/10/2023 patient was seen and examined on the medical floor she is alert and oriented x 3 in no apparent distress she is complaining of generalized weakness otherwise she denies any complaints there is no fever or chills no headache or dizziness no chest pain no shortness of breath no cough no nausea or vomiting no abdominal pain no diarrhea and no urinary symptoms, her vital exam reveals a temperature of 98.1 pulse 65 respiration 15 blood pressure 110/74 pulse ox 91% on 6 L nasal cannula, white blood count 13.3 hemoglobin 9.5 platelet count 435 BUN 10.6 creatinine 0.5 chest x-ray reveals evidence of pulmonary venous congestion, echocardiogram reveals severe pulmonary hypertension. On 11/11/2023 patient is alert and oriented 3. Patient planning to some nausea this morning Zofran ordered. Patient remains on IV antibiotics.current vital signs temp 97.8, heart rate 89, respiratory rate 15, blood pressure 119/73 with a pulse ox of 93% on 5 L. On 11/12/2023 patient is alert and oriented 3. Patient reports improvement with nausea. Repeat labs pending. Infectious disease services is following patient remains on by mouth antibiotic. Current vital signs temp 97.8, heart rate 68, respiratory rate 15, blood pressure 97/62 with a pulse ox of 94% on 5 L. On 11/13/2023 patient was seen and examined on the medical floor she is complaining of generalized weakness and complaining of back pain, otherwise she denies any complaints at this time, today she developed a rash on the left upper back area compatible with herpes zoster eruption, she will be started on Valtrex 1 g 3 times daily, she will be continued on Vfend and IV vancomycin infectious disease are following, white blood count is coming down, will follow closely Objective - Vital Signs Vital signs: Vital Signs Temp 98.1 F 11/13/23 07:11 Pulse 95 11/13/23 07:11 Resp 17 11/13/23 07:11 BP 107/70 11/13/23 07:11 Pulse Ox 90 L 11/13/23 07:11 FiO2 Intake & Output 11/12/23 11/13/23 11/13/23 18:59 06:59 18:59 Output Total 300 Balance -300 Weight 113.398 kg Output: Urine 300 Other: Voiding Method Bedside Commode Bedside Commode External Catheter External Catheter # Voids 4 # Bowel Movements 2 - Exam Head normocephalic Neck supple Lungs clear to auscultation bilaterally no wheezing or crackles Heart regular rate and rhythm S1-S2, no rub or gallop Abdomen is soft nontender nondistended positive bowel sounds no hepatosplenomegaly Extremities no edema Neuro alert and orientated to 3 - Labs CBC & Chem 7: 11/13/23 06:59 11/13/23 06:59 Labs: Abnormal Lab Results - Last 24 Hours (Table) 11/12/23 11/12/23 11/12/23 Range/Units 10:49 10:49 11:06 WBC 12.5 H (3.8-10.6) k/uL RBC 3.18 L (3.80-5.40) m/uL Hgb 9.6 L (11.4-16.0) gm/dL Hct 32.2 L (34.0-46.0) % MCV 101.1 H (80.0-100.0) fL MCHC 29.8 L (31.0-37.0) g/dL Neutrophils # 10.1 H (1.3-7.7) k/uL Sodium 132 L (137-145) mmol/L Chloride 95 L (98-107) mmol/L Carbon Dioxide 33 H (22-30) mmol/L Glucose 203 H (74-99) mg/dL POC Glucose (mg/dL) 185 H (70-110) mg/dL Calcium 7.8 L (8.4-10.2) mg/dL Alkaline Phosphatase 147 H (38-126) U/L Total Protein 6.0 L (6.3-8.2) g/dL Albumin 2.4 L (3.5-5.0) g/dL 11/12/23 11/12/23 Range/Units 16:18 20:37 WBC (3.8-10.6) k/uL RBC (3.80-5.40) m/uL Hgb (11.4-16.0) gm/dL Hct (34.0-46.0) % MCV (80.0-100.0) fL MCHC (31.0-37.0) g/dL Neutrophils # (1.3-7.7) k/uL Sodium (137-145) mmol/L Chloride (98-107) mmol/L Carbon Dioxide (22-30) mmol/L Glucose (74-99) mg/dL POC Glucose (mg/dL) 140 H 170 H (70-110) mg/dL Calcium (8.4-10.2) mg/dL Alkaline Phosphatase (38-126) U/L Total Protein (6.3-8.2) g/dL Albumin (3.5-5.0) g/dL Microbiology - Last 24 Hours (Table) 11/11/23 11:30 Urine Culture - Preliminary Urine,Voided Group D Enterococcus Assessment and Plan Assessment: 1.Chest pain and shortness of breath possibly secondary to acute exacerbation of diastolic congestive heart failure and/or pneumonia 2. Urinary tract infection. Patient did complete outpatient treatment will order urine culture 3. Acute on chronic diastolic congestive heart failure 4. Possible pneumonia seen on computed tomography scan with elevated calcitonin 5. History of coronary artery disease with recent history of PCI to the left circumflex in July 2023 6. History of diabetes mellitus type 2 7. History of hyperlipidemia 8. History of DVT 9. Evidence of severe pulmonary hypertension on echocardiogram 10. History of previous pneumonia secondary to Pseudomonas 11. Oral thrush patient started on nystatin DVT prophylaxis Lovenox. GI prophylaxis Protonix Infectious disease service is following Sputum urine and blood cultures ordered Repeat labs ordered PT OT service is consulted
[2023-11-13] MEDS: valACYclovir HCL 1,000 MG TABLET PO SCH (18:25)
[2023-11-13 20:27] LABS: Glucose,Whole Blood 255 mg/dL (70-110)
[2023-11-13 23:57] LABS: % Iron Saturation 20.98 (12.00-45.00)
[2023-11-14 05:39] LABS: Glucose,Whole Blood 97 mg/dL (70-110)
[2023-11-14] MEDS: ONDANSETRON 4 MG/2 ML VIAL IVP PRN (09:21)
[2023-11-14 10:40] LABS: Basophils # (A) 0.05 X 10*3/uL (0.00-0.10); Basophils % (A) 0.5 %; Eosinophils # (A) 0.49 X 10*3/uL (0.04-0.35); Eosinophils % (A) 4.7 %; HCT 28.9 % (37.2-46.3); HGB 8.6 g/dL (12.0-15.0); Lymphocytes % (A) 10.7 %; MCH 30.2 pg (27.0-32.0); MCHC 29.8 g/dL (32.0-37.0); MCV 101.4 FL (80.0-97.0); Mean Platelet Volume 9.8 FL (9.5-12.2); Monocytes # (A) 0.71 X 10*3/uL (0.20-1.00); Monocytes % (A) 6.9 %; NRBC Per 100 WBC 0 X 10*3/uL (0.00-0.01); Neutrophils # (A) 7.86 X 10*3/uL (1.80-7.70); Neutrophils % (A) 76.1 %; Platelet Count 382 X 10*3/uL (140-440); RBC 2.85 X 10*6/uL (4.10-5.20); RDW 14.6 % (11.5-14.5); WBC 10.32 X 10*3/uL (4.50-10.00)
--- NOTE | 2023-11-14 10:49 | P.PN ---
Subjective Progress Note Date: 11/14/23 This is a 73-year-old female patient who presented to the ER with concerns of chest and abdominal pain that she believes is secondary from pneumonia. Patient reports she was recently treated for UTI outpatient reports that she has had increased weakness and shortness of breath over the past week. Patient has a past medical history of CHF, diabetes mellitus, DVT, I disorder, osteoarthritis, obesity and ex-smoker. Chest x-ray completed in ER showing no acute process. CT of abdomen and pelvis completed showing small left lower lobe infiltrate and pleural effusion small amount of free fluid surrounding the spleen stable nonobstructing bilateral renal calcifications. Troponins negative 3. UA show ing positive for urinary tract infection. ProCalcitonin also elevated at 15.8. Patient was started on IV antibiotics Rocephin and Zithromax. Creatinine 0.56 bun 14 BNP elevated 2920. At this time pulmonary cardiology services will be consulted. Sputum culture ordered. Blood culture ordered. Current vital signs temp 98.7, heart rate 86, respiratory rate 17, blood pressure 111/62 with pulse ox of 92% on 3 L On 11/05/2023 patient's alert and oriented 3. Patient reports generalized weakness and pain. Patient remains on IV Rocephin and Zithromax. Patient also started on IV Lasix per cardiology. Patient denies chest pain.Current vital signs temp 98.1, heart rate 11, respiratory rate 16, blood pressure 122/63 with pulse ox 96% on room air. On 11/06/2023 patient was seen and examined on the medical floor she is alert and oriented x 3 in no apparent distress there is no fever or chills no headache or dizziness no chest pain no shortness of breath at rest she has some shortness of breath with activity, no cough no nausea or vomiting no abdominal pain no diarrhea no urinary symptoms. White blood count is coming down gradually, patient remains on IV Rocephin and IV Zithromax, pulmonary critical care, and cardiology are following, echocardiogram revealed severe pulmonary hypertension. On 11/07/2023 for patient's alert and oriented 3.repeat chest x-ray has been ordered. Patient also started on nystatin for thrush. Incentive spirometer ordered. Patient complaining of constipation will order Colace. Patient remains on IV antibiotics. radiology pulmonary service is following On 11/08/2023 Patient is alert and oriented 3. Repeat chest x-ray completed showing patchy perihilar and left basal infiltrate correlate for pneumonia patient remains on azithromycin and IV Rocephin.Current vital signs temp 98.3, heart rate 90, respiratory rate 18, blood pressure for over 63 with pulse ox of 100% on 4 L On 11/09/2023 patient was seen and examined on the medical floor she is alert and oriented x 3 in no apparent distress there is no fever or chills no headache or dizziness no chest pain no shortness of breath at rest she has some shortness of breath with activity, she has occasional cough, no nausea or vomiting, no diarrhea no urinary symptoms. White blood count is coming down gradually, patient remains on IV Rocephin and IV Zithromax, echocardiogram revealed severe pulmonary hypertension. I will ask pulmonary to reevaluate the patient, she is not feeling better, patient has generalized abdominal pain, will check abdominal ultrasound, consultation for infectious disease was initiated. On 12/10/2023 patient was seen and examined on the medical floor she is alert and oriented x 3 in no apparent distress she is complaining of generalized weakness otherwise she denies any complaints there is no fever or chills no headache or dizziness no chest pain no shortness of breath no cough no nausea or vomiting no abdominal pain no diarrhea and no urinary symptoms, her vital exam reveals a temperature of 98.1 pulse 65 respiration 15 blood pressure 110/74 pulse ox 91% on 6 L nasal cannula, white blood count 13.3 hemoglobin 9.5 platelet count 435 BUN 10.6 creatinine 0.5 chest x-ray reveals evidence of pulmonary venous congestion, echocardiogram reveals severe pulmonary hypertension. On 11/11/2023 patient is alert and oriented 3. Patient planning to some nausea this morning Zofran ordered. Patient remains on IV antibiotics.current vital signs temp 97.8, heart rate 89, respiratory rate 15, blood pressure 119/73 with a pulse ox of 93% on 5 L. On 11/12/2023 patient is alert and oriented 3. Patient reports improvement with nausea. Repeat labs pending. Infectious disease services is following patient remains on by mouth antibiotic. Current vital signs temp 97.8, heart rate 68, respiratory rate 15, blood pressure 97/62 with a pulse ox of 94% on 5 L. On 11/13/2023 patient was seen and examined on the medical floor she is complaining of generalized weakness and complaining of back pain, otherwise she denies any complaints at this time, today she developed a rash on the left upper back area compatible with herpes zoster eruption, she will be started on Valtrex 1 g 3 times daily, she will be continued on Vfend and IV vancomycin infectious disease are following, white blood count is coming down, will follow closely On 11/14/2023 patient's alert and oriented 3 complaining of painOn rash area. Patient remains on Valtrex and vancomycin patient reports a generalized weakness. Patient denies chest pain or shortness breath.Current vital signs temp 98.1, heart rate 80, respiratory rate 19, blood pressure 120/78 with pulse ox 94% on 4 L Objective - Vital Signs Vital signs: Vital Signs Temp 98.1 F 11/14/23 07:42 Pulse 90 11/14/23 07:42 Resp 21 11/14/23 07:42 BP 94/60 11/14/23 07:42 Pulse Ox 90 L 11/14/23 07:42 FiO2 Intake & Output 11/13/23 11/14/23 11/14/23 18:59 06:59 18:59 Output Total 800 550 Balance -800 -550 Output: Urine 800 550 Other: Voiding Method Diaper External Catheter Incontinent External Catheter # Voids 4 4 - Exam Head normocephalic Neck supple Lungs clear to auscultation bilaterally no wheezing or crackles Heart regular rate and rhythm S1-S2, no rub or gallop Abdomen is soft nontender nondistended positive bowel sounds no hepatosplenomegaly Extremities no edema Neuro alert and orientated to 3 - Labs CBC & Chem 7: 11/14/23 07:38 11/13/23 06:59 Labs: Abnormal Lab Results - Last 24 Hours (Table) 11/13/23 11/13/23 11/13/23 Range/Units 06:59 06:59 06:59 WBC 10.80 H (4.50-10.00) X 10*3/uL RBC 2.91 L (4.10-5.20) X 10*6/uL Hgb 8.6 L (12.0-15.0) g/dL Hct 29.8 L (37.2-46.3) % MCV 102.4 H (80.0-97.0) FL MCHC 28.9 L (32.0-37.0) g/dL RDW (11.5-14.5) % Immature Gran # 0.13 H (0.00-0.04) X 10*3/uL Neutrophils # 7.97 H (1.80-7.70) X 10*3/uL Eosinophils # 0.47 H (0.04-0.35) X 10*3/uL Chloride 95 L (96-109) mmol/L Anion Gap 12.30 H (4.00-12.00) mmol/L POC Glucose (mg/dL) (70-110) mg/dL Calcium 8.2 L (8.7-10.3) mg/dL Iron 30 L (50-170) UG/DL TIBC 143 L (228-460) UG/DL Transferrin 102.0 L (204.0-354.0) mg/dL Albumin 2.4 L (3.8-4.9) g/dL Globulin 3.9 H (1.6-3.3) g/dL Albumin/Globulin Ratio 0.62 L (1.60-3.17) Ratio 11/13/23 11/13/23 11/13/23 Range/Units 11:33 16:21 20:26 WBC (4.50-10.00) X 10*3/uL RBC (4.10-5.20) X 10*6/uL Hgb (12.0-15.0) g/dL Hct (37.2-46.3) % MCV (80.0-97.0) FL MCHC (32.0-37.0) g/dL RDW (11.5-14.5) % Immature Gran # (0.00-0.04) X 10*3/uL Neutrophils # (1.80-7.70) X 10*3/uL Eosinophils # (0.04-0.35) X 10*3/uL Chloride (96-109) mmol/L Anion Gap (4.00-12.00) mmol/L POC Glucose (mg/dL) 191 H 120 H 255 H (70-110) mg/dL Calcium (8.7-10.3) mg/dL Iron (50-170) UG/DL TIBC (228-460) UG/DL Transferrin (204.0-354.0) mg/dL Albumin (3.8-4.9) g/dL Globulin (1.6-3.3) g/dL Albumin/Globulin Ratio (1.60-3.17) Ratio 11/14/23 Range/Units 07:38 WBC 10.32 H (4.50-10.00) X 10*3/uL RBC 2.85 L (4.10-5.20) X 10*6/uL Hgb 8.6 L (12.0-15.0) g/dL Hct 28.9 L (37.2-46.3) % MCV 101.4 H (80.0-97.0) FL MCHC 29.8 L (32.0-37.0) g/dL RDW 14.6 H (11.5-14.5) % Immature Gran # 0.11 H (0.00-0.04) X 10*3/uL Neutrophils # 7.86 H (1.80-7.70) X 10*3/uL Eosinophils # 0.49 H (0.04-0.35) X 10*3/uL Chloride (96-109) mmol/L Anion Gap (4.00-12.00) mmol/L POC Glucose (mg/dL) (70-110) mg/dL Calcium (8.7-10.3) mg/dL Iron (50-170) UG/DL TIBC (228-460) UG/DL Transferrin (204.0-354.0) mg/dL Albumin (3.8-4.9) g/dL Globulin (1.6-3.3) g/dL Albumin/Globulin Ratio (1.60-3.17) Ratio Microbiology - Last 24 Hours (Table) 11/11/23 11:30 Urine Culture - Final Urine,Voided Enterococcus faecium Assessment and Plan Assessment: 1.Chest pain and shortness of breath possibly secondary to acute exacerbation of diastolic congestive heart failure and/or pneumonia 2. Urinary tract infection. Patient did complete outpatient treatment will order urine culture 3. Acute on chronic diastolic congestive heart failure 4. Possible pneumonia seen on computed tomography scan with elevated calcitonin 5. History of coronary artery disease with recent history of PCI to the left circumflex in July 2023 6. History of diabetes mellitus type 2 7. History of hyperlipidemia 8. History of DVT 9. Evidence of severe pulmonary hypertension on echocardiogram 10. History of previous pneumonia secondary to Pseudomonas 11. Oral thrush patient started on nystatin 12. Shingles. Patient started on Valtrex DVT prophylaxis Lovenox. GI prophylaxis Protonix Infectious disease service is following Sputum urine and blood cultures ordered Repeat labs ordered PT OT service is consulted
[2023-11-14 10:57] LABS: ALT 11 U/L (8-44); AST 17 U/L (13-35); Albumin 2.4 g/dL (3.8-4.9); Albumin/Globulin Ratio 0.62 Ratio (1.60-3.17); Alkaline Phosphatase 111 U/L (41-126); BUN/Creat Ratio 16.33 Ratio (12.00-20.00); Blood Urea Nitrogen 9.8 mg/dL (9.0-27.0); Calcium 8.1 mg/dL (8.7-10.3); Carbon Dioxide 28.9 mmol/L (21.6-31.8); Chloride 97 mmol/L (96-109); Globulin 3.9 g/dL (1.6-3.3); Glucose 95 mg/dL (70-110); Potassium 3.7 mmol/L (3.5-5.5); Sodium 137 mmol/L (135-145); Total Bilirubin 0.4 mg/dL (0.3-1.2); Total Protein 6.3 g/dL (6.2-8.2)
[2023-11-14 12:15] LABS: Glucose,Whole Blood 107 mg/dL (70-110)
--- NOTE | 2023-11-14 14:45 | XR ---
EXAMINATION TYPE: XR chest 2V DATE OF EXAM: 11/14/2023 COMPARISON: 11/09/2023 INDICATION: Pleural effusion and atelectasis TECHNIQUE: Frontal and lateral views of the chest are obtained. FINDINGS: The heart size is normal. The pulmonary vasculature is somewhat prominent. Mild scattered infiltrates are present. Some more focal infiltrate may be at the left base. Correlate for atelectasis or pneumonia.. There is blunting left costophrenic angle. Small left pleural effusi on may be present IMPRESSION: 1. Scattered bilateral lung infiltrates may be more focal in the left lower lobe. Correlate for atele ctasis. Developing left lower lobe pneumonia is not excluded. Follow-up is recommended.
[2023-11-14 16:37] LABS: Glucose,Whole Blood 138 mg/dL (70-110)
[2023-11-14 21:33] LABS: Glucose,Whole Blood 125 mg/dL (70-110)
[2023-11-15 05:51] LABS: Glucose,Whole Blood 106 mg/dL (70-110)
[2023-11-15 06:55] LABS: Glucose,Whole Blood 96 mg/dL (70-110)
[2023-11-15 09:27] LABS: Basophils # (A) 0.06 X 10*3/uL (0.00-0.10); Basophils % (A) 0.6 %; Eosinophils # (A) 0.71 X 10*3/uL (0.04-0.35); Eosinophils % (A) 6.6 %; HCT 27.9 % (37.2-46.3); HGB 8.4 g/dL (12.0-15.0); Lymphocytes # (A) 1.56 X 10*3/uL (0.90-5.00); Lymphocytes % (A) 14.6 %; MCH 30.5 pg (27.0-32.0); MCHC 30.1 g/dL (32.0-37.0); MCV 101.5 FL (80.0-97.0); Mean Platelet Volume 9.9 FL (9.5-12.2); Monocytes # (A) 0.75 X 10*3/uL (0.20-1.00); NRBC Per 100 WBC 0 X 10*3/uL (0.00-0.01); Neutrophils # (A) 7.49 X 10*3/uL (1.80-7.70); Neutrophils % (A) 70.1 %; Platelet Count 379 X 10*3/uL (140-440); RBC 2.75 X 10*6/uL (4.10-5.20); RDW 14.9 % (11.5-14.5); WBC 10.69 X 10*3/uL (4.50-10.00)
--- NOTE | 2023-11-15 09:36 | P.PN ---
Subjective Progress Note Date: 11/14/23 Principal diagnosis: Reason for follow-up is urinary tract infection Patient is a 73-year-old female with a past medical history significant for diabetes mellitus DVT osteoarthritis heart failure pneumonia and UTI presenting to the hospital for evaluation of right-sided flank pain and abdominal area patient did have a positive UA elevated white count urine culture with Sri glabrata prompted this consultation on today's evaluation that is 11/14/2023,the patient denies any fever or any chills, patient is breathing comfortably on 3 L nasal cannula oxygen the patient denies shortness of breath and no significant cough, patient denies abdominal pain, no nausea vomiting or diarrhea. Still complaining of some pain to his lower rib cage and back area. Patient did have a creatinine 0.6 electrolytes are normal liver enzymes are normal Objective - Vital Signs Vital signs: Vital Signs Temp 98.1 F 11/14/23 07:42 Pulse 90 11/14/23 07:42 Resp 21 11/14/23 07:42 BP 94/60 11/14/23 07:42 Pulse Ox 90 L 11/14/23 07:42 FiO2 Intake & Output 11/13/23 11/14/23 11/14/23 18:59 06:59 18:59 Output Total 800 550 Balance -800 -550 Output: Urine 800 550 Other: Voiding Method Diaper External Catheter Incontinent External Catheter # Voids 4 4 - Exam GENERAL DESCRIPTION: An elderly female lying in bed in no distress RESPIRATORY SYSTEM: Unlabored breathing , decreased breath sounds at bases HEART: S1 S2 regular rate and rhythm , ABDOMEN: Soft , no tenderness EXTREMITIES: No edema feet SKIN: Right side upper back did have some skin tear, does not look vesicles if she did have shingles which would have seen more extensive rash in lateral distribution - Labs CBC & Chem 7: 11/15/23 04:01 11/14/23 07:38 Labs: Abnormal Lab Results - Last 24 Hours (Table) 11/13/23 11/13/23 11/13/23 Range/Units 06:59 16:21 20:26 WBC (4.50-10.00) X 10*3/uL RBC (4.10-5.20) X 10*6/uL Hgb (12.0-15.0) g/dL Hct (37.2-46.3) % MCV (80.0-97.0) FL MCHC (32.0-37.0) g/dL RDW (11.5-14.5) % Immature Gran # (0.00-0.04) X 10*3/uL Neutrophils # (1.80-7.70) X 10*3/uL Eosinophils # (0.04-0.35) X 10*3/uL POC Glucose (mg/dL) 120 H 255 H (70-110) mg/dL Calcium (8.7-10.3) mg/dL Iron 30 L (50-170) UG/DL TIBC 143 L (228-460) UG/DL Transferrin 102.0 L (204.0-354.0) mg/dL Albumin (3.8-4.9) g/dL Globulin (1.6-3.3) g/dL Albumin/Globulin Ratio (1.60-3.17) Ratio 11/14/23 11/14/23 Range/Units 07:38 07:38 WBC 10.32 H (4.50-10.00) X 10*3/uL RBC 2.85 L (4.10-5.20) X 10*6/uL Hgb 8.6 L (12.0-15.0) g/dL Hct 28.9 L (37.2-46.3) % MCV 101.4 H (80.0-97.0) FL MCHC 29.8 L (32.0-37.0) g/dL RDW 14.6 H (11.5-14.5) % Immature Gran # 0.11 H (0.00-0.04) X 10*3/uL Neutrophils # 7.86 H (1.80-7.70) X 10*3/uL Eosinophils # 0.49 H (0.04-0.35) X 10*3/uL POC Glucose (mg/dL) (70-110) mg/dL Calcium 8.1 L (8.7-10.3) mg/dL Iron (50-170) UG/DL TIBC (228-460) UG/DL Transferrin (204.0-354.0) mg/dL Albumin 2.4 L (3.8-4.9) g/dL Globulin 3.9 H (1.6-3.3) g/dL Albumin/Globulin Ratio 0.62 L (1.60-3.17) Ratio Microbiology - Last 24 Hours (Table) 11/11/23 11:30 Urine Culture - Final Urine,Voided Enterococcus faecium Assessment and Plan (1) UTI (urinary tract infection) Current Visit: Yes Status: Acute Code(s): N39.0 - URINARY TRACT INFECTION, SITE NOT SPECIFIED SNOMED Code(s): 44908646 Plan: 1patient is in the hospital with the flank pain nausea and vomiting did have a positive UA likely concerning for symptomatic UTI/pyelonephritis with urine culture growing Sri glabrata likely etiology of her illness, patient did have a chest x-ray was reported negative for acute infiltrate CT abdominal pelvis did show some left lower lobe infiltrate and effusion questionably complex atelectasis clinically not behaving as pneumonia. 2patient did have improvement her white count urine is now growing Enterococcus patient that is sensitive to both vancomycin as well as Macrobid will finish therapy with oral Macrobid 3-patient did have some skin lesion on the left upper back area not clinically compatible with shingles if she has any shingles for the last 3 to 4 days we should have seen more extensive distribution in no pattern which I did not see this has been explained to the patient and the I do not see any use for Valtrex at this point discussed with admitting physician 4patient with the rib cage pain likely atelectasis as the patient has not been using incentive spirometry as advised repeat x-ray has been requested Dictation was produced using [employer] dictation software. please excuse any grammatical, word or spelling errors. Time with Patient: Greater than 30
[2023-11-15 09:43] LABS: ALT 11 U/L (8-44); AST 20 U/L (13-35); Albumin 2.3 g/dL (3.8-4.9); Albumin/Globulin Ratio 0.59 Ratio (1.60-3.17); Alkaline Phosphatase 109 U/L (41-126); BUN/Creat Ratio 16.14 Ratio (12.00-20.00); Blood Urea Nitrogen 11.3 mg/dL (9.0-27.0); Calcium 7.9 mg/dL (8.7-10.3); Chloride 98 mmol/L (96-109); Globulin 3.9 g/dL (1.6-3.3); Glucose 100 mg/dL (70-110); Sodium 138 mmol/L (135-145); Total Bilirubin 0.3 mg/dL (0.3-1.2); Total Protein 6.2 g/dL (6.2-8.2)
--- NOTE | 2023-11-15 09:50 | P.PN ---
Subjective Progress Note Date: 11/15/23 This is a 73-year-old female patient who presented to the ER with concerns of chest and abdominal pain that she believes is secondary from pneumonia. Patient reports she was recently treated for UTI outpatient reports that she has had increased weakness and shortness of breath over the past week. Patient has a past medical history of CHF, diabetes mellitus, DVT, I disorder, osteoarthritis, obesity and ex-smoker. Chest x-ray completed in ER showing no acute process. CT of abdomen and pelvis completed showing small left lower lobe infiltrate and pleural effusion small amount of free fluid surrounding the spleen stable nonobstructing bilateral renal calcifications. Troponins negative 3. UA show ing positive for urinary tract infection. ProCalcitonin also elevated at 15.8. Patient was started on IV antibiotics Rocephin and Zithromax. Creatinine 0.56 bun 14 BNP elevated 2920. At this time pulmonary cardiology services will be consulted. Sputum culture ordered. Blood culture ordered. Current vital signs temp 98.7, heart rate 86, respiratory rate 17, blood pressure 111/62 with pulse ox of 92% on 3 L On 11/05/2023 patient's alert and oriented 3. Patient reports generalized weakness and pain. Patient remains on IV Rocephin and Zithromax. Patient also started on IV Lasix per cardiology. Patient denies chest pain.Current vital signs temp 98.1, heart rate 11, respiratory rate 16, blood pressure 122/63 with pulse ox 96% on room air. On 11/06/2023 patient was seen and examined on the medical floor she is alert and oriented x 3 in no apparent distress there is no fever or chills no headache or dizziness no chest pain no shortness of breath at rest she has some shortness of breath with activity, no cough no nausea or vomiting no abdominal pain no diarrhea no urinary symptoms. White blood count is coming down gradually, patient remains on IV Rocephin and IV Zithromax, pulmonary critical care, and cardiology are following, echocardiogram revealed severe pulmonary hypertension. On 11/07/2023 for patient's alert and oriented 3.repeat chest x-ray has been ordered. Patient also started on nystatin for thrush. Incentive spirometer ordered. Patient complaining of constipation will order Colace. Patient remains on IV antibiotics. radiology pulmonary service is following On 11/08/2023 Patient is alert and oriented 3. Repeat chest x-ray completed showing patchy perihilar and left basal infiltrate correlate for pneumonia patient remains on azithromycin and IV Rocephin.Current vital signs temp 98.3, heart rate 90, respiratory rate 18, blood pressure for over 63 with pulse ox of 100% on 4 L On 11/09/2023 patient was seen and examined on the medical floor she is alert and oriented x 3 in no apparent distress there is no fever or chills no headache or dizziness no chest pain no shortness of breath at rest she has some shortness of breath with activity, she has occasional cough, no nausea or vomiting, no diarrhea no urinary symptoms. White blood count is coming down gradually, patient remains on IV Rocephin and IV Zithromax, echocardiogram revealed severe pulmonary hypertension. I will ask pulmonary to reevaluate the patient, she is not feeling better, patient has generalized abdominal pain, will check abdominal ultrasound, consultation for infectious disease was initiated. On 12/10/2023 patient was seen and examined on the medical floor she is alert and oriented x 3 in no apparent distress she is complaining of generalized weakness otherwise she denies any complaints there is no fever or chills no headache or dizziness no chest pain no shortness of breath no cough no nausea or vomiting no abdominal pain no diarrhea and no urinary symptoms, her vital exam reveals a temperature of 98.1 pulse 65 respiration 15 blood pressure 110/74 pulse ox 91% on 6 L nasal cannula, white blood count 13.3 hemoglobin 9.5 platelet count 435 BUN 10.6 creatinine 0.5 chest x-ray reveals evidence of pulmonary venous congestion, echocardiogram reveals severe pulmonary hypertension. On 11/11/2023 patient is alert and oriented 3. Patient planning to some nausea this morning Zofran ordered. Patient remains on IV antibiotics.current vital signs temp 97.8, heart rate 89, respiratory rate 15, blood pressure 119/73 with a pulse ox of 93% on 5 L. On 11/12/2023 patient is alert and oriented 3. Patient reports improvement with nausea. Repeat labs pending. Infectious disease services is following patient remains on by mouth antibiotic. Current vital signs temp 97.8, heart rate 68, respiratory rate 15, blood pressure 97/62 with a pulse ox of 94% on 5 L. On 11/13/2023 patient was seen and examined on the medical floor she is complaining of generalized weakness and complaining of back pain, otherwise she denies any complaints at this time, today she developed a rash on the left upper back area compatible with herpes zoster eruption, she will be started on Valtrex 1 g 3 times daily, she will be continued on Vfend and IV vancomycin infectious disease are following, white blood count is coming down, will follow closely On 11/14/2023 patient's alert and oriented 3 complaining of painOn rash area. Patient remains on Valtrex and vancomycin patient reports a generalized weakness. Patient denies chest pain or shortness breath.Current vital signs temp 98.1, heart rate 80, respiratory rate 19, blood pressure 120/78 with pulse ox 94% on 4 L On 11/15/2023 patient is alert and oriented x 3. Patient is complaining of some left-sided pain. Valtrex DC'd per infectious disease. WBC 10.69, hemoglobin 8.4. Current vital signs temp 98.0, heart rate 102, respiratory rate 18, blood pressure 97/68 with a pulse ox of 93% on room air Objective - Vital Signs Vital signs: Vital Signs Temp 98.0 F 11/15/23 08:00 Pulse 102 H 11/15/23 08:00 Resp 18 11/15/23 08:00 BP 97/68 11/15/23 08:00 Pulse Ox 91 L 11/15/23 08:00 FiO2 Intake & Output 11/14/23 11/15/23 11/15/23 18:59 06:59 18:59 Output Total 800 300 Balance -800 -300 Weight 113.398 kg Output: Urine 800 300 Other: Voiding Method Incontinent Incontinent External Catheter - Exam Head normocephalic Neck supple Lungs clear to auscultation bilaterally no wheezing or crackles Heart regular rate and rhythm S1-S2, no rub or gallop Abdomen is soft nontender nondistended positive bowel sounds no hepatosplenomegaly Extremities no edema Neuro alert and orientated to 3 - Labs CBC & Chem 7: 11/15/23 04:01 11/15/23 04:01 Labs: Abnormal Lab Results - Last 24 Hours (Table) 11/14/23 11/14/23 11/14/23 Range/Units 07:38 07:38 16:36 WBC 10.32 H (4.50-10.00) X 10*3/uL RBC 2.85 L (4.10-5.20) X 10*6/uL Hgb 8.6 L (12.0-15.0) g/dL Hct 28.9 L (37.2-46.3) % MCV 101.4 H (80.0-97.0) FL MCHC 29.8 L (32.0-37.0) g/dL RDW 14.6 H (11.5-14.5) % Immature Gran # 0.11 H (0.00-0.04) X 10*3/uL Neutrophils # 7.86 H (1.80-7.70) X 10*3/uL Eosinophils # 0.49 H (0.04-0.35) X 10*3/uL POC Glucose (mg/dL) 138 H (70-110) mg/dL Calcium 8.1 L (8.7-10.3) mg/dL Albumin 2.4 L (3.8-4.9) g/dL Globulin 3.9 H (1.6-3.3) g/dL Albumin/Globulin Ratio 0.62 L (1.60-3.17) Ratio 11/14/23 11/15/23 11/15/23 Range/Units 21:22 04:01 04:01 WBC 10.69 H (4.50-10.00) X 10*3/uL RBC 2.75 L (4.10-5.20) X 10*6/uL Hgb 8.4 L (12.0-15.0) g/dL Hct 27.9 L (37.2-46.3) % MCV 101.5 H (80.0-97.0) FL MCHC 30.1 L (32.0-37.0) g/dL RDW 14.9 H (11.5-14.5) % Immature Gran # 0.12 H (0.00-0.04) X 10*3/uL Neutrophils # (1.80-7.70) X 10*3/uL Eosinophils # 0.71 H (0.04-0.35) X 10*3/uL POC Glucose (mg/dL) 125 H (70-110) mg/dL Calcium 7.9 L (8.7-10.3) mg/dL Albumin 2.3 L (3.8-4.9) g/dL Globulin 3.9 H (1.6-3.3) g/dL Albumin/Globulin Ratio 0.59 L (1.60-3.17) Ratio Assessment and Plan Assessment: 1.Chest pain and shortness of breath possibly secondary to acute exacerbation of diastolic congestive heart failure and/or pneumonia 2. Urinary tract infection. Patient did complete outpatient treatment will order urine culture 3. Acute on chronic diastolic congestive heart failure 4. Possible pneumonia seen on computed tomography scan with elevated calcitonin 5. History of coronary artery disease with recent history of PCI to the left circumflex in July 2023 6. History of diabetes mellitus type 2 7. History of hyperlipidemia 8. History of DVT 9. Evidence of severe pulmonary hypertension on echocardiogram 10. History of previous pneumonia secondary to Pseudomonas 11. Oral thrush patient started on nystatin 12. Shingles. Patient started on Valtrex. Valtrex DC'd per infectious disease DVT prophylaxis Lovenox. GI prophylaxis Protonix Infectious disease service is following Sputum urine and blood cultures ordered Repeat labs ordered PT OT service is consulted
[2023-11-15 11:17] LABS: African American GFR (CKD) >90 (>60 ml/min/1.73 sqM); Non-African American GFR(CKD) 89 (>60 ml/min/1.73 sqM)
[2023-11-15 11:33] LABS: Glucose,Whole Blood 145 mg/dL (70-110)
[2023-11-15] MEDS: VANCOMYCIN TROUGH DUE 1 EACH MISC MISCELLANE ONE (12:35)
--- NOTE | 2023-11-15 14:43 | P.PN ---
Subjective Progress Note Date: 11/15/23 Principal diagnosis: Reason for follow-up is urinary tract infection Patient is a 73-year-old female with a past medical history significant for diabetes mellitus DVT osteoarthritis heart failure pneumonia and UTI presenting to the hospital for evaluation of right-sided flank pain and abdominal area patient did have a positive UA elevated white count urine culture with Sri glabrata prompted this consultation on today's evaluation that is 11/15/2023,the patient remains to be afebrile, patient is on 3 L nasal cannula supplemental oxygen and denies any shortness of breath no no significant cough or sputum production to complain of left lower rib cage pain.Patient denies having any nausea or vomiting, no abdominal pain and no diarrhea has been reported, no urinary symptoms. Patient white count is 10.69, creatinine 0.7 Vanco trough elevated at 34 point 0 repeat chest x-ray with the left lower lobe atelectasis and effusion Objective - Vital Signs Vital signs: Vital Signs Temp 98.0 F 11/15/23 08:00 Pulse 102 H 11/15/23 08:00 Resp 18 11/15/23 08:00 BP 97/68 11/15/23 08:00 Pulse Ox 91 L 11/15/23 08:00 FiO2 Intake & Output 11/14/23 11/15/23 11/15/23 18:59 06:59 18:59 Output Total 800 300 Balance -800 -300 Weight 113.398 kg Output: Urine 800 300 Other: Voiding Method Incontinent Incontinent External Catheter External Catheter - Exam GENERAL DESCRIPTION: An elderly female lying in bed in no distress RESPIRATORY SYSTEM: Unlabored breathing , decreased breath sounds at bases HEART: S1 S2 regular rate and rhythm , ABDOMEN: Soft , no tenderness EXTREMITIES: No edema feet SKIN: Right side upper back did have some skin tear, does not look vesicles if she did have shingles which would have seen more extensive rash in lateral distribution - Labs CBC & Chem 7: 11/15/23 04:01 11/15/23 10:08 Labs: Abnormal Lab Results - Last 24 Hours (Table) 11/14/23 11/14/23 11/15/23 Range/Units 16:36 21: 04:01 WBC 10.69 H (4.50-10.00) X 10*3/uL RBC 2.75 L (4.10-5.20) X 10*6/uL Hgb 8.4 L (12.0-15.0) g/dL Hct 27.9 L (37.2-46.3) % MCV 101.5 H (80.0-97.0) FL MCHC 30.1 L (32.0-37.0) g/dL RDW 14.9 H (11.5-14.5) % Immature Gran # 0.12 H (0.00-0.04) X 10*3/uL Eosinophils # 0.71 H (0.04-0.35) X 10*3/uL POC Glucose (mg/dL) 138 H 125 H (70-110) mg/dL Calcium (8.7-10.3) mg/dL Albumin (3.8-4.9) g/dL Globulin (1.6-3.3) g/dL Albumin/Globulin Ratio (1.60-3.17) Ratio Vancomycin Trough ug/mL 11/15/23 11/15/23 11/15/23 Range/Units 04:01 10:08 11:31 WBC (4.50-10.00) X 10*3/uL RBC (4.10-5.20) X 10*6/uL Hgb (12.0-15.0) g/dL Hct (37.2-46.3) % MCV (80.0-97.0) FL MCHC (32.0-37.0) g/dL RDW (11.5-14.5) % Immature Gran # (0.00-0.04) X 10*3/uL Eosinophils # (0.04-0.35) X 10*3/uL POC Glucose (mg/dL) 145 H (70-110) mg/dL Calcium 7.9 L (8.7-10.3) mg/dL Albumin 2.3 L (3.8-4.9) g/dL Globulin 3.9 H (1.6-3.3) g/dL Albumin/Globulin Ratio 0.59 L (1.60-3.17) Ratio Vancomycin Trough 34.0 H* ug/mL Assessment and Plan (1) UTI (urinary tract infection) Current Visit: Yes Status: Acute Code(s): N39.0 - URINARY TRACT INFECTION, SITE NOT SPECIFIED SNOMED Code(s): 32874400 Plan: 1patient is in the hospital with the flank pain nausea and vomiting did have a positive UA likely concerning for symptomatic UTI/pyelonephritis with urine culture growing Sri glabrata likely etiology of her illness, patient did have a chest x-ray was reported negative for acute infiltrate CT abdominal pelvis did show some left lower lobe infiltrate and effusion questionably complex atelectasis clinically not behaving as pneumonia. 2patient did have improvement her white count urine is now growing Enterococcus patient that is sensitive to both vancomycin as well as Macrobid, patient have elevated vancomycin trough vancomycin has been discontinued to decrease risk of nephrotoxicity patient started on Macrobid to continue to follow-up 5 days to finish her course of therapy 3-patient did have some skin lesion on the left upper back area not clinically c ompatible with shingles if she has any shingles for the last 3 to 4 days we should have seen more extensive distribution in no pattern which I did not see this has been explained to the patient and the I do not see any use for Valtrex which has been discontinued and no worsening rash has been noticed on today's evaluation 4patient with the rib cage pain likely atelectasis, with repeat chest x-ray shows evidence of small effusion and atelectasis has been instructed again on incentive spirometry to help open up that areas of atelectasis Multiple question concern answered Dictation was produced using [employer] dictation software. please excuse any grammatical, word or spelling errors. Time with Patient: Less than 30
[2023-11-15 16:34] LABS: Glucose,Whole Blood 135 mg/dL (70-110)
[2023-11-15 20:43] LABS: Glucose,Whole Blood 157 mg/dL (70-110)
[2023-11-15] MEDS: NITROFURANTOIN MONOHYD/M-CRYST 100 MG CAP PO SCH (21:20)
[2023-11-16 05:50] LABS: Glucose,Whole Blood 108 mg/dL (70-110)
[2023-11-16 09:04] LABS: Basophils # (A) 0.1 k/uL (0-0.2); Basophils % (A) 1 %; Eosinophils # (A) 0.6 k/uL (0-0.7); Eosinophils % (A) 4 %; HCT 34.5 % (34.0-46.0); HGB 10.2 gm/dL (11.4-16.0); Hypochromasia Marked; Lymphocytes # (A) 1.3 k/uL (1.0-4.8); Lymphocytes % (A) 8 %; MCH 30.4 pg (25.0-35.0); MCHC 29.6 g/dL (31.0-37.0); MCV 102.4 fL (80.0-100.0); Macrocytosis Slight; Mean Platelet Volume 7.7; Monocytes # (A) 0.8 k/uL (0-1.0); Monocytes % (A) 5 %; Neutrophils % (A) 81 %; Platelet Count 456 k/uL (150-450); RBC 3.37 m/uL (3.80-5.40)
[2023-11-16 09:33] LABS: ALT 12 U/L (4-34); AST 25 U/L (14-36); African American GFR (CKD) 89 (>60 ml/min/1.73 sqM); Albumin 2.9 g/dL (3.5-5.0); Albumin/Globulin Ratio 0.7; Alkaline Phosphatase 146 U/L (38-126); Anion Gap 6 mmol/L; Blood Urea Nitrogen 14 mg/dL (7-17); Calcium 8.7 mg/dL (8.4-10.2); Carbon Dioxide 30 mmol/L (22-30); Chloride 98 mmol/L (98-107); Globulin 4.3 g/dL; Glucose 166 mg/dL (74-99); Non-African American GFR(CKD) 77 (>60 ml/min/1.73 sqM); Potassium 4.7 mmol/L (3.5-5.1); Sodium 134 mmol/L (137-145); Total Bilirubin 0.7 mg/dL (0.2-1.3); Total Protein 7.2 g/dL (6.3-8.2)
--- NOTE | 2023-11-16 10:50 | XR ---
EXAMINATION TYPE: XR chest 2V DATE OF EXAM: 11/16/2023 COMPARISON: 11/14/2023 INDICATION: Elevated white count, back pain TECHNIQUE: Frontal and lateral views of the chest are obtained. FINDINGS: The heart size is normal. The pulmonary vasculature is somewhat prominent. Mild infiltrate in the left lower lung field. Some minimal infiltrate may be at the right base. Findi ngs are increasing. Correlate for pneumonia. Atypical pulmonary edema be considered.. IMPRESSION: 1. Bibasilar infiltrates greater on the left. Correlate for pneumonia. Atypical pulmonary edema could be considered.
--- NOTE | 2023-11-16 10:51 | XR ---
EXAMINATION TYPE: XR thoracic spine complete DATE OF EXAM: 11/16/2023 COMPARISON: None HISTORY: Back pain TECHNIQUE: 3 view thoracic spine FINDINGS: Frontal projection is somewhat underpenetrated. Vertebral body heights appear preserved. Al ignment is preserved. Disc heights appear preserved. Note is made of the basilar infiltrates in the l ateral projection. IMPRESSION: 1. Limited thoracic spine. No suspicious acute osseous abnormality
[2023-11-16 11:52] LABS: Glucose,Whole Blood 186 mg/dL (70-110)
[2023-11-16 14:07] LABS: Appearance,Urine Clear (Clear); Bilirubin,Urine Negative (Negative); Blood,Urine Small (Negative); Color,Urine Colorless; Glucose,Urine (UA) 3+ (Negative); Ketones,Urine Negative (Negative); Leukocyte Esterase,Urine Large (Negative); Nitrite,Urine Negative (Negative); PH, Urine 7.5 (5.0-8.0); Protein,Urine Negative (Negative); RBC,Urine 12 /hpf (0-5); Specific Gravity,Urine 1.006 (1.001-1.035); Squamous Epithelial Cell,Urine 1 /hpf (0-4); Urobilinogen,Urine <2.0 mg/dL (<2.0); WBC,Urine 36 /hpf (0-5)
--- NOTE | 2023-11-16 14:12 | P.PN ---
Subjective Progress Note Date: 11/16/23 This is a 73-year-old female patient who presented to the ER with concerns of chest and abdominal pain that she believes is secondary from pneumonia. Patient reports she was recently treated for UTI outpatient reports that she has had increased weakness and shortness of breath over the past week. Patient has a past medical history of CHF, diabetes mellitus, DVT, I disorder, osteoarthritis, obesity and ex-smoker. Chest x-ray completed in ER showing no acute process. CT of abdomen and pelvis completed showing small left lower lobe infiltrate and pleural effusion small amount of free fluid surrounding the spleen stable nonobstructing bilateral renal calcifications. Troponins negative 3. UA show ing positive for urinary tract infection. ProCalcitonin also elevated at 15.8. Patient was started on IV antibiotics Rocephin and Zithromax. Creatinine 0.56 bun 14 BNP elevated 2920. At this time pulmonary cardiology services will be consulted. Sputum culture ordered. Blood culture ordered. Current vital signs temp 98.7, heart rate 86, respiratory rate 17, blood pressure 111/62 with pulse ox of 92% on 3 L On 11/05/2023 patient's alert and oriented 3. Patient reports generalized weakness and pain. Patient remains on IV Rocephin and Zithromax. Patient also started on IV Lasix per cardiology. Patient denies chest pain.Current vital signs temp 98.1, heart rate 11, respiratory rate 16, blood pressure 122/63 with pulse ox 96% on room air. On 11/06/2023 patient was seen and examined on the medical floor she is alert and oriented x 3 in no apparent distress there is no fever or chills no headache or dizziness no chest pain no shortness of breath at rest she has some shortness of breath with activity, no cough no nausea or vomiting no abdominal pain no diarrhea no urinary symptoms. White blood count is coming down gradually, patient remains on IV Rocephin and IV Zithromax, pulmonary critical care, and cardiology are following, echocardiogram revealed severe pulmonary hypertension. On 11/07/2023 for patient's alert and oriented 3.repeat chest x-ray has been ordered. Patient also started on nystatin for thrush. Incentive spirometer ordered. Patient complaining of constipation will order Colace. Patient remains on IV antibiotics. radiology pulmonary service is following On 11/08/2023 Patient is alert and oriented 3. Repeat chest x-ray completed showing patchy perihilar and left basal infiltrate correlate for pneumonia patient remains on azithromycin and IV Rocephin.Current vital signs temp 98.3, heart rate 90, respiratory rate 18, blood pressure for over 63 with pulse ox of 100% on 4 L On 11/09/2023 patient was seen and examined on the medical floor she is alert and oriented x 3 in no apparent distress there is no fever or chills no headache or dizziness no chest pain no shortness of breath at rest she has some shortness of breath with activity, she has occasional cough, no nausea or vomiting, no diarrhea no urinary symptoms. White blood count is coming down gradually, patient remains on IV Rocephin and IV Zithromax, echocardiogram revealed severe pulmonary hypertension. I will ask pulmonary to reevaluate the patient, she is not feeling better, patient has generalized abdominal pain, will check abdominal ultrasound, consultation for infectious disease was initiated. On 12/10/2023 patient was seen and examined on the medical floor she is alert and oriented x 3 in no apparent distress she is complaining of generalized weakness otherwise she denies any complaints there is no fever or chills no headache or dizziness no chest pain no shortness of breath no cough no nausea or vomiting no abdominal pain no diarrhea and no urinary symptoms, her vital exam reveals a temperature of 98.1 pulse 65 respiration 15 blood pressure 110/74 pulse ox 91% on 6 L nasal cannula, white blood count 13.3 hemoglobin 9.5 platelet count 435 BUN 10.6 creatinine 0.5 chest x-ray reveals evidence of pulmonary venous congestion, echocardiogram reveals severe pulmonary hypertension. On 11/11/2023 patient is alert and oriented 3. Patient planning to some nausea this morning Zofran ordered. Patient remains on IV antibiotics.current vital signs temp 97.8, heart rate 89, respiratory rate 15, blood pressure 119/73 with a pulse ox of 93% on 5 L. On 11/12/2023 patient is alert and oriented 3. Patient reports improvement with nausea. Repeat labs pending. Infectious disease services is following patient remains on by mouth antibiotic. Current vital signs temp 97.8, heart rate 68, respiratory rate 15, blood pressure 97/62 with a pulse ox of 94% on 5 L. On 11/13/2023 patient was seen and examined on the medical floor she is complaining of generalized weakness and complaining of back pain, otherwise she denies any complaints at this time, today she developed a rash on the left upper back area compatible with herpes zoster eruption, she will be started on Valtrex 1 g 3 times daily, she will be continued on Vfend and IV vancomycin infectious disease are following, white blood count is coming down, will follow closely On 11/14/2023 patient's alert and oriented 3 complaining of painOn rash area. Patient remains on Valtrex and vancomycin patient reports a generalized weakness. Patient denies chest pain or shortness breath.Current vital signs temp 98.1, heart rate 80, respiratory rate 19, blood pressure 120/78 with pulse ox 94% on 4 L On 11/15/2023 patient is alert and oriented x 3. Patient is complaining of some left-sided pain. Valtrex DC'd per infectious disease. WBC 10.69, hemoglobin 8.4. Current vital signs temp 98.0, heart rate 102, respiratory rate 18, blood pressure 97/68 with a pulse ox of 93% on room air On 11/16/2023 patient was seen and examined on the medical floor she is alert and oriented x 3 in no apparent distress she is complaining mostly of left flank pain otherwise she denies any complaints there is no fever or chills no headache or dizziness no chest pain no shortness of breath no cough no nausea or vomiting no abdominal pain no diarrhea no urinary symptoms. White blood count is up from 10-16, repeat chest x-ray revealed bibasilar infiltrate, at this time consultation again for pulmonary was initiated, blood culture and urine culture were repeated, infectious disease will be notified, also speech therapy was consulted for swallow evaluation to rule out aspiration. Continue with current management otherwise, Dr. English will manage antibiotics. Objective - Vital Signs Vital signs: Vital Signs Temp 98.7 F 11/16/23 01:23 Pulse 92 11/16/23 01:23 Resp 17 11/16/23 01:23 BP 101/61 11/16/23 01:23 Pulse Ox 91 L 11/16/23 01:23 FiO2 Intake & Output 11/15/23 11/16/23 11/16/23 18:59 06:59 18:59 Intake Total 120 Output Total 250 300 Balance -130 -300 Intake: Oral 120 Output: Urine 250 300 Other: Voiding Method External Catheter External Catheter # Voids 5 - Exam Head normocephalic Neck supple Lungs clear to auscultation bilaterally no wheezing or crackles Heart regular rate and rhythm S1-S2, no rub or gallop Abdomen is soft nontender nondistended positive bowel sounds no hepatosplenomegaly Extremities no edema Neuro alert and orientated to 3 - Labs CBC & Chem 7: 11/16/23 08:38 11/16/23 08:38 Labs: Abnormal Lab Results - Last 24 Hours (Table) 11/15/23 11/15/23 11/15/23 Range/Units 04:01 04:01 10:08 WBC 10.69 H (4.50-10.00) X 10*3/uL RBC 2.75 L (4.10-5.20) X 10*6/uL Hgb 8.4 L (12.0-15.0) g/dL Hct 27.9 L (37.2-46.3) % MCV 101.5 H (80.0-97.0) FL MCHC 30.1 L (32.0-37.0) g/dL RDW 14.9 H (11.5-14.5) % Immature Gran # 0.12 H (0.00-0.04) X 10*3/uL Eosinophils # 0.71 H (0.04-0.35) X 10*3/uL POC Glucose (mg/dL) (70-110) mg/dL Calcium 7.9 L (8.7-10.3) mg/dL Albumin 2.3 L (3.8-4.9) g/dL Globulin 3.9 H (1.6-3.3) g/dL Albumin/Globulin Ratio 0.59 L (1.60-3.17) Ratio Vancomycin Trough 34.0 H* ug/mL 11/15/23 11/15/23 11/15/23 Range/Units 11:31 16:32 20:39 WBC (4.50-10.00) X 10*3/uL RBC (4.10-5.20) X 10*6/uL Hgb (12.0-15.0) g/dL Hct (37.2-46.3) % MCV (80.0-97.0) FL MCHC (32.0-37.0) g/dL RDW (11.5-14.5) % Immature Gran # (0.00-0.04) X 10*3/uL Eosinophils # (0.04-0.35) X 10*3/uL POC Glucose (mg/dL) 145 H 135 H 157 H (70-110) mg/dL Calcium (8.7-10.3) mg/dL Albumin (3.8-4.9) g/dL Globulin (1.6-3.3) g/dL Albumin/Globulin Ratio (1.60-3.17) Ratio Vancomycin Trough ug/mL Assessment and Plan Assessment: 1.Chest pain and shortness of breath possibly secondary to acute exacerbation of diastolic congestive heart failure and/or pneumonia 2. Urinary tract infection. Patient did complete outpatient treatment will order urine culture 3. Acute on chronic diastolic congestive heart failure 4. Possible pneumonia seen on computed tomography scan with elevated calcitonin 5. History of coronary artery disease with recent history of PCI to the left circumflex in July 2023 6. History of diabetes mellitus type 2 7. History of hyperlipidemia 8. History of DVT 9. Evidence of severe pulmonary hypertension on echocardiogram 10. History of previous pneumonia secondary to Pseudomonas 11. Oral thrush patient started on nystatin 12. Shingles. Patient started on Valtrex. Valtrex DC'd per infectious disease DVT prophylaxis Lovenox. GI prophylaxis Protonix Infectious disease service is following Sputum urine and blood cultures ordered Repeat labs ordered PT OT service is consulted
[2023-11-16] MEDS ORDERED: IOPAMIDOL CONTRAST (ORAL USE) VIAL PO PRN (14:13)
--- NOTE | 2023-11-16 16:17 | US ---
EXAMINATION TYPE: US kidneys/renal and bladder DATE OF EXAM: 11/16/2023 COMPARISON: NONE CLINICAL INDICATION: Female, 73 years old with history of left flank pain; h/o stones, left flank libia n, large habitus, known renal cysts EXAM MEASUREMENTS: Right Kidney: 11.6 x 4.6 x 6.6 cm Left Kidney: 11.0 x 5.3 x 7.1 cm Right Kidney: known large cyst seen on the right, tiny inferior pole stones 1.0 x 0.9cm Left Kidney: inferior pole 1.4 x 1.3cm stone seen Bladder: wnl There is no evidence for hydronephrosis at this point in time. No solid masses are identified. The urinary bladder is anechoic. Bilateral ureteral jets are seen. IMPRESSION: Stable cystic changes. Nonobstructing calculi bilaterally.
[2023-11-16 17:00] LABS: Glucose,Whole Blood 130 mg/dL (70-110)
[2023-11-16 20:18] LABS: Glucose,Whole Blood 210 mg/dL (70-110)
--- NOTE | 2023-11-16 22:51 | P.PN ---
Subjective Progress Note Date: 11/16/23 Principal diagnosis: Reason for follow-up is urinary tract infection Patient is a 73-year-old female with a past medical history significant for diabetes mellitus DVT osteoarthritis heart failure pneumonia and UTI presenting to the hospital for evaluation of right-sided flank pain and abdominal area patient did have a positive UA elevated white count urine culture with Sri glabrata prompted this consultation on today's evaluation that is 11/16/2023, the patient continues to be afebrile, the patient is on 2.5 L nasal cannula oxygen and breathing comfortably, the Pt has recovered from lower rib cage chest pain she did have a cough with occasional sputum production no nausea no vomiting no abdominal pain or any diarrhea. Patient white count is up to 16,000 today, creatinine 0.77 Objective - Vital Signs Vital signs: Vital Signs Temp 98.4 F 11/16/23 08:09 Pulse 116 H 11/16/23 08:09 Resp 16 11/16/23 08:09 BP 123/66 11/16/23 08:09 Pulse Ox 92 L 11/16/23 08:09 FiO2 Intake & Output 11/15/23 11/16/23 11/16/23 18:59 06:59 18:59 Intake Total 120 Output Total 250 300 200 Balance -130 -300 -200 Intake: Oral 120 Output: Urine 250 300 200 Other: Voiding Method External Catheter External Catheter Incontinent External Catheter # Voids 5 - Exam GENERAL DESCRIPTION: An elderly female lying in bed in no distress RESPIRATORY SYSTEM: Unlabored breathing , decreased breath sounds at bases HEART: S1 S2 regular rate and rhythm , ABDOMEN: Soft , no tenderness EXTREMITIES: No edema feet SKIN: Right side upper back did have some skin tear, does not look vesicles if she did have shingles which would have seen more extensive rash in lateral distribution - Labs CBC & Chem 7: 11/16/23 08:38 11/16/23 08:38 Labs: Abnormal Lab Results - Last 24 Hours (Table) 11/15/23 11/15/23 11/16/23 Range/Units 16:32 20:39 08:38 WBC (3.8-10.6) k/uL RBC (3.80-5.40) m/uL Hgb (11.4-16.0) gm/dL MCV (80.0-100.0) fL MCHC (31.0-37.0) g/dL Plt Count (150-450) k/uL Neutrophils # (1.3-7.7) k/uL Sodium 134 L (137-145) mmol/L Glucose 166 H (74-99) mg/dL POC Glucose (mg/dL) 135 H 157 H (70-110) mg/dL Alkaline Phosphatase 146 H (38-126) U/L Albumin 2.9 L (3.5-5.0) g/dL 11/16/23 11/16/23 Range/Units 08:38 11:51 WBC 16.0 H (3.8-10.6) k/uL RBC 3.37 L (3.80-5.40) m/uL Hgb 10.2 L (11.4-16.0) gm/dL MCV 102.4 H (80.0-100.0) fL MCHC 29.6 L (31.0-37.0) g/dL Plt Count 456 H (150-450) k/uL Neutrophils # 13.0 H (1.3-7.7) k/uL Sodium (137-145) mmol/L Glucose (74-99) mg/dL POC Glucose (mg/dL) 186 H (70-110) mg/dL Alkaline Phosphatase (38-126) U/L Albumin (3.5-5.0) g/dL Assessment and Plan (1) UTI (urinary tract infection) Current Visit: Yes Status: Acute Code(s): N39.0 - URINARY TRACT INFECTION, SITE NOT SPECIFIED SNOMED Code(s): 62666268 (2) Leukocytosis Current Visit: Yes Status: Acute Code(s): D72.829 - ELEVATED WHITE BLOOD CELL COUNT, UNSPECIFIED SNOMED Code(s): 534212297 Plan: 1patient is in the hospital with the flank pain nausea and vomiting did have a positive UA likely concerning for symptomatic UTI/pyelonephritis with urine culture growing Sri glabrata likely etiology of her illness, patient did have a chest x-ray was reported negative for acute infiltrate CT abdominal pelvis did show some left lower lobe infiltrate and effusion questionably complex atelectasis clinically not behaving as pneumonia. 2patient did have improvement her white count urine is now growing Enterococcus patient that is sensitive to both vancomycin as well as Macrobid, patient have elevated vancomycin trough vancomycin has been discontinued to decrease risk of nephrotoxicity patient started on Macrobid to continue to follow-up 5 days to finish her course of therapy 3-patient did have some skin lesion on the left upper back area not clinically compatible with shingles if she has any shingles for the last 3 to 4 days we should have seen more extensive distribution in no pattern which I did not see this has been explained to the patient and the I do not see any use for Valtrex which has been discontinued and no worsening rash has been noticed 4patient with the rib cage pain likely atelectasis, with repeat chest x-ray shows evidence of small effusion and atelectasis has been instructed again on incentive spirometry 5-patient did have worsening of the white count workup has been ordered by admitting physician including a UA chest x-ray and culture results will be followed we will check a CRP and a procalcitonin level and also try to obtain sputum for Gram stain and culture Dictation was produced using [employer] dictation software. please excuse any grammatical, word or spelling errors. Time with Patient: Less than 30
[2023-11-17 06:01] LABS: Glucose,Whole Blood 96 mg/dL (70-110)
--- NOTE | 2023-11-17 06:35 | P.PN ---
Subjective Progress Note Date: 11/17/23 Principal diagnosis: Urinary tract infection, acute on chronic diastolic CHF exacerbation Patient is a 73-year-old white female with past medical history significant for congestive heart failure, kidney stones, coronary artery disease with recent PCI/stenting of the left circumflex artery, diabetes mellitus, DVT, obesity. Patient presented emergency room yesterday evening with multiple complaints. Approximately, 1 week ago she began to noticed right-sided flank pain with r adiation to the right upper abdomen. Of note, she states that she was recently treated outpatient for urinary tract infection by her primary care provider, Dr. Angulo, and she completed her antibiotics approximately 1 week ago. She denies any further urinary complaints such as dysuria, urinary frequency, incontinence, hematuria. She does have history of bilateral kidney stones. Also, reports an isolated episode of nausea and vomiting and intermittent diarrhea. A CT of the abdomen and pelvis without contrast demonstrated stable nonobstructing bilateral renal calcifications. Otherwise, unremarkable for intrabdominal process. There was incidentally a small left lower lobe pleural effusion and likely atelectasis versus infiltrate. More recently, she has noticed increased shortness of breath with exertion. She has been generally weak and fatigued. Also, sleeping alot in the chair. She has bilateral lower extremity swelling. Denies any chest pain, heart palpitations, syncopal events. Patient has known chronic diastolic congestive heart failure with preserved left ventricular ejection fraction and secondary pulmonary hypertension. She takes Lasix 40 mg twice a day. She has not missed any doses. Chest x-ray demonstrates cardiomegaly with mild pulmonary vascular congestion and interstitial edema. NT proBNP elevated at 2900. Of note, she was recently hospitalized July, and treated for possible pneumonia. Initially, completed a course of IV cefepime and then ciprofloxacin. She does endorse a intermittent cough with mostly clear sputum, occasionally yellow in color. Denies any fevers, hemoptysis, chest pain. During the same hospitalization mentioned above, she also underwent heart catheterization on 08/06/2023, and received a stent to the mid left circumflex. She states she has been taking all of her medications as directed. CBC: WBC count 14.1, hemoglobin 12.2, hematocrit 38.8, platelets 399. CMP: Sodium 136, potassium 3.7, chloride 104, serum bicarb 28, BUN 14, creatinine 0.56, glucose 93. Lactic acid level 1.4. LFTs unremarkable. EKG shows normal sinus rhythm with nonspecific t wave changes. Troponin less than 0.012 x 2. She is currently in the emergency department, room 5. She is resting comfortably on the stretcher, on 3 L/min nasal cannula. SpO2 96%. Vital signs are stable. Patient is being seen in follow-up, today 11/17/2023. She was originally admitted back on November 02, chiefly with a urinary tract infection, in which she failed outpatient treatment. She was also felt to have an exacerbation of her diastolic congestive heart failure. Chest x-ray on admission showed cardiomegaly, mild pulmonary vascular congestion, interstitial edema, and with a small left lower lobe pleural effusion and suspected associated atelectasis. NT proBNP initially 2900. She has been started on Lasix currently 60 mg in the morning and 40 mg in the evening. She has a pure wick suction catheter. Continues to have pitting lower extremity edema. Follow-up echocardiogram done this admission demonstrates LVH with preserved systolic function and severe pulmonary hypertension with mild RV enlargement and moderate tricuspid regurgitation. Urine culture was positive for Enterococcus faecium, sensitive to Macrobid. Blood cultures have remained negative. Infectious disease specialist is providing antibiotic recommendations. Most recent ultrasound of the renals and bladder continues to show cystic changes with nonobstructive calculi bi laterally. She is still complaining of lower back pain, and pain management has been added to the case. An x-ray of the thoracic spine did not show any suspicious acute osseous abnormalities. Most recent CBC from yesterday: WBC count 16, hemoglobin 10.2, hematocrit 34.5, platelets 456. Most recent BMP from yesterday: Sodium 134, potassium 4.7, chloride 98, serum bicarb 30, BUN 14, creatinine 0.77, glucose 166. Procalcitonin level as high as 15.8 and was down to 0.33. She did have increasing leukocytosis, and pancultures have been reordered. She is currently lying in bed on 3 L/min nasal cannula, in no acute distress. Still denies any significant coughing, sputum production, chest pain. Most recent chest x-ray continues to show scattered bilateral lung infiltrates, with a persistent left lower lobe opacity, likely representing the previous mentioned small left pleural effusion with associated atelectasis. Pneumonia could be considered, but felt to be less likely. There is also cardiomegaly and prominent pulmonary vasculature. Continues to be afebrile. Remaining vital signs are stable. Objective - Vital Signs Vital signs: Vital Signs Temp 97.9 F 11/17/23 02:00 Pulse 68 11/17/23 02:00 Resp 13 11/17/23 02:00 BP 108/70 11/17/23 02:00 Pulse Ox 92 L 11/17/23 02:00 FiO2 Intake & Output 11/16/23 11/16/23 11/17/23 06:59 18:59 06:59 Output Total 300 1250 550 Balance -300 -1250 -550 Output: Urine 300 1250 550 Other: Voiding Method External Catheter Incontinent Incontinent External Catheter External Catheter - Exam GENERAL EXAM: Alert, 73-year-old, morbidly obese, white female who appears comfortable in no apparent distress. HEAD: Normocephalic and atraumatic EYES: Normal reaction of pupils, equal size. NOSE: Clear with pink turbinates. THROAT: No erythema or exudates. NECK: No masses, no JVD. CHEST: No chest wall deformity. LUNGS: Equal air entry with minimal bibasilar inspiratory crackles. There is scattered wheezing. On 3 L/min nasal cannula. No conversational dyspnea or accessory muscle use.. CVS: S1 and S2 normal with no audible murmur, regular rhythm. No extra heart sounds ABDOMEN: No hepatosplenomegaly, active bowel sounds, no guarding or rigidity. SPINE: No scoliosis or deformity SKIN: No rashes CENTRAL NERVOUS SYSTEM: No focal deficits, tone is normal in all 4 extremities. EXTREMITIES: There is 1-2+ bilateral pitting lower extremity edema. No clubbing, or cyanosis. Peripheral pulses are intact. - Labs CBC & Chem 7: 11/16/23 08:38 11/16/23 08:38 Labs: Abnormal Lab Results - Last 24 Hours (Table) 11/16/23 11/16/23 11/16/23 Range/Units 08:38 08:38 11:51 WBC 16.0 H (3.8-10.6) k/uL RBC 3.37 L (3.80-5.40) m/uL Hgb 10.2 L (11.4-16.0) gm/dL MCV 102.4 H (80.0-100.0) fL MCHC 29.6 L (31.0-37.0) g/dL Plt Count 456 H (150-450) k/uL Neutrophils # 13.0 H (1.3-7.7) k/uL Sodium 134 L (137-145) mmol/L Glucose 166 H (74-99) mg/dL POC Glucose (mg/dL) 186 H (70-110) mg/dL Alkaline Phosphatase 146 H (38-126) U/L Albumin 2.9 L (3.5-5.0) g/dL Urine Glucose (UA) (Negative) Urine Blood (Negative) Ur Leukocyte Esterase (Negative) Urine RBC (0-5) /hpf Urine WBC (0-5) /hpf 11/16/23 11/16/23 11/16/23 Range/Units 13:47 16:43 20:15 WBC (3.8-10.6) k/uL RBC (3.80-5.40) m/uL Hgb (11.4-16.0) gm/dL MCV (80.0-100.0) fL MCHC (31.0-37.0) g/dL Plt Count (150-450) k/uL Neutrophils # (1.3-7.7) k/uL Sodium (137-145) mmol/L Glucose (74-99) mg/dL POC Glucose (mg/dL) 130 H 210 H (70-110) mg/dL Alkaline Phosphatase (38-126) U/L Albumin (3.5-5.0) g/dL Urine Glucose (UA) 3+ H (Negative) Urine Blood Small H (Negative) Ur Leukocyte Esterase Large H (Negative) Urine RBC 12 H (0-5) /hpf Urine WBC 36 H (0-5) /hpf Assessment and Plan Assessment: UTI/sepsis suspected. Urine culture was positive, has isolated Enterococcus faecium, and is sensitive to Macrobid. Procalcitonin level was previously considerably elevated at 15 initially, most recently down to 0.33. Acute hypoxemic respiratory failure, likely secondary to mild exacerbation of diastolic congestive heart failure. Most recent chest x-ray from yesterday continues to show scattered bilateral lung infiltrates/atelectasis, with a persistent left lower lobe opacity, likely representing the previous mentioned small left pleural effusion with associated atelectasis. Pneumonia could be considered, but felt to be less likely. There is also cardiomegaly and prominent pulmonary vasculature. Echocardiogram from this admission revealed preserved left ventricular systolic function with LVH, severe pulmonary hypertension with an RVSP of 74 mmHg, and moderate tricuspid regurgitation. Acute leukocytosis, slightly worsened Flank pain, previously reported right-sided now left, with bilateral nonocclusive kidney stones. CT of the abdomen and pelvis without contrast demo nstrated stable nonobstructing bilateral renal calcifications. Unremarkable for acute intra-abdominal process Recent outpatient treatment for urinary tract infection, reportedly completed entire course of antibiotics Coronary artery disease with recent history of PCI/stenting of the left circumflex artery on 08/06/2023 Chronic diastolic heart failure, patient is known to have a preserved left v entricular ejection fraction, severe pulmonary hypertension, and moderate to severe tricuspid regurgitation Diabetes mellitus type 2 History of hyperlipidemia History of DVT History of pneumonia, secondary to Pseudomonas Morbid obesity, with a BMI of 40.4 kg/m Plan: Patient's medications, labs, imaging reviewed Continues on 3 L/min nasal cannula, wean FiO2 as tolerated The pulmonary team was reconsulted yesterday, the patient has a persistent left lower lobe opacity, likely coinciding with the patient's left-sided pleural effusion and suspected associated atelectasis. Which is likely too small to consider thoracentesis. Patient continues to receive Lasix 60 mg in the morning and 40 mg in the afternoon. Recheck NT proBNP Antibiotics are being directed by infectious disease specialist. Previously covered with vancomycin and now continues on Macrobid for UTI. Procalcitonin level has been trending down, and was 15.8 on arrival down to 0.33. Recheck is pending Case will be discussed with Dr. Manzano this morning We will continue to follow I have personally seen and examined the patient, performed the documentation and the assessment and plan as written. Number of minutes spent on the visit:10 Time with Patient: Less than 30
[2023-11-17 08:19] LABS: Basophils % (A) 0 %; Eosinophils # (A) 0.5 k/uL (0-0.7); Eosinophils % (A) 5 %; HCT 32.5 % (34.0-46.0); HGB 9.8 gm/dL (11.4-16.0); Hypochromasia Moderate; Lymphocytes # (A) 1.1 k/uL (1.0-4.8); Lymphocytes % (A) 10 %; MCH 30.1 pg (25.0-35.0); MCV 100.2 fL (80.0-100.0); Macrocytosis Slight; Mean Platelet Volume 7.6; Monocytes # (A) 0.8 k/uL (0-1.0); Monocytes % (A) 7 %; Neutrophils # (A) 8.5 k/uL (1.3-7.7); Neutrophils % (A) 78 %; Platelet Count 424 k/uL (150-450); RBC 3.24 m/uL (3.80-5.40); RDW 15.1 % (11.5-15.5)
[2023-11-17 11:29] LABS: NT-Pro-B-Type Natriuretic Pept 3144 pg/mL (0-125)
[2023-11-17 11:30] LABS: BUN/Creat Ratio 14.11 Ratio (12.00-20.00); Blood Urea Nitrogen 12.7 mg/dL (9.0-27.0); Chloride 94 mmol/L (96-109); Glucose 92 mg/dL (70-110); Potassium 4.5 mmol/L (3.5-5.5); Sodium 137 mmol/L (135-145)
[2023-11-17 11:31] LABS: ALT 11 U/L (8-44); AST 18 U/L (13-35); Albumin 2.7 g/dL (3.8-4.9); Albumin/Globulin Ratio 0.63 Ratio (1.60-3.17); Alkaline Phosphatase 118 U/L (41-126); Calcium 8.7 mg/dL (8.7-10.3); Carbon Dioxide 29.5 mmol/L (21.6-31.8); Globulin 4.3 g/dL (1.6-3.3); Total Bilirubin 0.4 mg/dL (0.3-1.2)
[2023-11-17 11:47] LABS: Glucose,Whole Blood 179 mg/dL (70-110)
--- NOTE | 2023-11-17 15:35 | P.PAINPG ---
Objective - Vital Signs Vital signs: Vital Signs Temp 97.5 F L 11/17/23 14:00 Pulse 110 H 11/17/23 14:00 Resp 15 11/17/23 14:00 BP 106/60 11/17/23 14:00 Pulse Ox 88 L 11/17/23 14:00 FiO2 Intake & Output 11/16/23 11/17/23 11/17/23 18:59 06:59 18:59 Output Total 1250 550 Balance -1250 -550 Output: Urine 1250 550 Other: Voiding Method Incontinent Incontinent Incontinent External Catheter External Catheter External Catheter # Voids 1 # Bowel Movements 1 - Labs CBC & Chem 7: 11/17/23 07:36 11/17/23 07:36 Labs: Abnormal Lab Results - Last 24 Hours (Table) 11/16/23 11/16/23 11/17/23 Range/Units 16:43 20:15 07:36 WBC (3.8-10.6) k/uL RBC (3.80-5.40) m/uL Hgb (11.4-16.0) gm/dL Hct (34.0-46.0) % MCV (80.0-100.0) fL MCHC (31.0-37.0) g/dL Neutrophils # (1.3-7.7) k/uL Chloride (96-109) mmol/L Anion Gap (4.00-12.00) mmol/L POC Glucose (mg/dL) 130 H 210 H (70-110) mg/dL C-Reactive Protein (0.00-0.80) mg/dL NT-Pro-B Natriuret Pep (0-125) pg/mL Albumin (3.8-4.9) g/dL Globulin (1.6-3.3) g/dL Albumin/Globulin Ratio (1.60-3.17) Ratio Procalcitonin 0.30 H (0.02-0.09) ng/mL 11/17/23 11/17/23 11/17/23 Range/Units 07:36 07:36 11:45 WBC 11.0 H (3.8-10.6) k/uL RBC 3.24 L (3.80-5.40) m/uL Hgb 9.8 L (11.4-16.0) gm/dL Hct 32.5 L (34.0-46.0) % MCV 100.2 H (80.0-100.0) fL MCHC 30.0 L (31.0-37.0) g/dL Neutrophils # 8.5 H (1.3-7.7) k/uL Chloride 94 L (96-109) mmol/L Anion Gap 13.50 H (4.00-12.00) mmol/L POC Glucose (mg/dL) 179 H (70-110) mg/dL C-Reactive Protein 13.40 H (0.00-0.80) mg/dL NT-Pro-B Natriuret Pep 3144 H (0-125) pg/mL Albumin 2.7 L (3.8-4.9) g/dL Globulin 4.3 H (1.6-3.3) g/dL Albumin/Globulin Ratio 0.63 L (1.60-3.17) Ratio Procalcitonin (0.02-0.09) ng/mL PQRS Measure Charge Sheet Comment: HISTORY OF PRESENT ILLNESS: A 73 yr old inpatient female w and daughter at side as a referral from Dr Angulo presents today w severe and chronic mid back pain secondary to DDD, spondylosis and facet arthropathy without myelopathy for evaluation. Pt states pain level is provoked at 8 /10 in intensity, constant, localized in the mid back, predominantly axial, sharp in character w occasional shooting pain towards the L flank. Pain is provoked by any movement. Pain is alleviated by medications (Tramadol q6h prn, ASA QD), manual massage, repositioning and rest . PMH: OA, CHF, IDDM II, DVT, Seasonal Allergies, Macular Degeneration, Nephrolithiasis PSH: Hysterectomy, Tubal Ligation, Lithotripsy, L Thigh Stent (2011), Cardiac Stent (per pt) SH: Former tobacco user, No ETOH use, No illicit drug use. . FH: Mo- Colon CA. Fa- Lung CA. Sis- Breast CA. Bro- CA, PE. Daughter- TIA after PICC line insertion. Granddaughter- DVT in groin. All: See list Meds: See list REVIEW OF ORGAN SYSTEMS: CONSTITUTIONAL: No fevers or chills. No recent weight loss. NEUROLOGICAL: + numbness and tingling along the distal extremities. No seizure disorders or headaches. MUSCULOSKELETAL: + pain PSYCHIATRIC: Denies current depression or suicidal thoughts. Physical Examinations : Constitutional : Cooperative , not in acute distress . Neurologic : Cranial nerve II to XII intact. No focal neurological deficits. Psychiatric : alert & oriented x 3. Matching mood & appropriate affect. Judgment & insight intact. Musculoskeletal : Cervical Spine Motor strength in the deltoid and biceps: Normal right side. Normal Left side Motor strength biceps and the wrist extensors: Normal right side . Normal left side Motor strength in the triceps muscle: Normal right side. Normal left side Deep tendon reflexes: Normal at the biceps. Normal at Brachioradialis. Normal at triceps Vertebral body tenderness to deep palpation over Cervical facet loading test: positive bilaterally Spurling test: positive bilaterally Neck distraction test: positive bilaterally Ovi sign: positive bilaterally Thoracic spine Vertebral body TTP over T6-T11 Mora test positive L T7-T10 Lumbar spine Motor strength lower extremities ,thigh and legs 5/5 Right side , 5/5 Left side Deep tendon reflexes : Normal Knee Jerk. Normal Ankle Jerk Vertebral body tenderness over Mora Test positive Lumbar facet Loading Test: positive Right / positive Left Range of motion of the lumbar spine Flexion 30 degrees, extension 10 degrees Straight Leg Raise test: Left/ Right positive at degrees Laura test: positive right / positive left. Severe tenderness over the Sacroiliac joint on the Right / Left sides Gaenslen test: positive bilaterally Seated flexion test: positive bilaterally. Sacral spine : Severe tenderness over the Sacroiliac joint: right side / left side Range of motion: Flexion of the lumbar spine <60 degrees Range of motion: Extension of the lumbar spine <20 degrees Gaenslen's Test positive Laura test: positive right side / left side Thigh Thrust Test Sacral Thrust Test Imaging: Thoracic xray reviewed Assessment/ Plan : Thoracic DDD Recommendation of CT thoracic spine non contrast M51.34. Will stop Plavix and ASA now as there is a likelihood of TESI . Will need to stop Lovenox within 1 day of procedure. All questions answered. I have spent greater than 30 minutes on patient care today. Dr Win was available by phone for the evaluation of this patient. The time was used to review the medical records including relevant urine studies and Prescription history (MAPs), review of the available imaging, evaluation and examination of the patient, coordination of care with the medical staff and if applicable referring physicians, as well as creation of the medical record - Pain Location None Pharmacological Interventions: Discuss Pain Med Options Lower Back Non-Pharmacological Interventions: Emotional/Spiritual Support, Heat, Position/Reposition, Reduce Environmental Stimuli Pharmacological Interventions: Discuss Pain Med Options, PRN Medication Pain Comment: Referenced MAR; offered Tramadol as reflects that not given since 101. Patient reports that was given before dinner. Declining at this time PQRS Narrative: Smoking Status Former smoker Blood Pressure [Right Arm] 106/60 Blood Pressure [Left Arm] 112/63 Blood Pressure 114/70 Pain Intensity [Lower Back] 0 Pain Intensity [None] 0 Pain Intensity 7 Pain Scale Used Numeric (1 - 10) Scale Used Numeric (1 - 10) Home Medications: Ambulatory Orders Acetaminophen [Tylenol 8 Hour] 1,300 mg PO Q8H 12/01/18 Aspirin EC [Ecotrin Low Dose] 81 mg PO DAILY 12/01/18 metFORMIN HCL [Glucophage] 500 mg PO BID 12/01/18 Cholecalciferol [Vitamin D3 (25 Mcg = 1000 Iu)] 100 mcg PO DAILY 04/24/23 Atorvastatin [Lipitor] 20 mg PO DAILY tab 05/13/23 Dapagliflozin Propanediol [Farxiga] 10 mg PO DAILY tab 05/13/23 Metoprolol Tartrate [Lopressor] 25 mg PO BID 08/05/23 Montelukast [Singulair] 10 mg PO HS 08/05/23 oxyBUTYnin chloride [Ditropan] 5 mg PO BID 08/05/23 Clopidogrel [Plavix] 75 mg PO DAILY 30 Days #30 tab 08/14/23 Cyanocobalamin [Vitamin B-12] 1,000 mcg PO DAILY 90 Days #90 tab 08/14/23 Ferrous Sulfate [Feosol] 325 mg PO DAILY 30 Days #30 tab 08/14/23 Furosemide [Lasix] 40 mg PO BID@0900,1600 11/03/23 Multivit-Min/FA/Lycopen/Lutein [Centrum Silver Tablet] 1 tab PO DAILY 11/03/23 Pantoprazole [Protonix] 40 mg PO DAILY 11/03/23 Controlled Substance Measures - Controlled Substance Measures Is patient prescribed a controlled substance at discharge?: No
[2023-11-17 16:48] LABS: Glucose,Whole Blood 124 mg/dL (70-110)
--- NOTE | 2023-11-17 17:48 | P.PN ---
Subjective Progress Note Date: 11/17/23 This is a 73-year-old female patient who presented to the ER with concerns of chest and abdominal pain that she believes is secondary from pneumonia. Patient reports she was recently treated for UTI outpatient reports that she has had increased weakness and shortness of breath over the past week. Patient has a past medical history of CHF, diabetes mellitus, DVT, I disorder, osteoarthritis, obesity and ex-smoker. Chest x-ray completed in ER showing no acute process. CT of abdomen and pelvis completed showing small left lower lobe infiltrate and pleural effusion small amount of free fluid surrounding the spleen stable nonobstructing bilateral renal calcifications. Troponins negative 3. UA show ing positive for urinary tract infection. ProCalcitonin also elevated at 15.8. Patient was started on IV antibiotics Rocephin and Zithromax. Creatinine 0.56 bun 14 BNP elevated 2920. At this time pulmonary cardiology services will be consulted. Sputum culture ordered. Blood culture ordered. Current vital signs temp 98.7, heart rate 86, respiratory rate 17, blood pressure 111/62 with pulse ox of 92% on 3 L On 11/05/2023 patient's alert and oriented 3. Patient reports generalized weakness and pain. Patient remains on IV Rocephin and Zithromax. Patient also started on IV Lasix per cardiology. Patient denies chest pain.Current vital signs temp 98.1, heart rate 11, respiratory rate 16, blood pressure 122/63 with pulse ox 96% on room air. On 11/06/2023 patient was seen and examined on the medical floor she is alert and oriented x 3 in no apparent distress there is no fever or chills no headache or dizziness no chest pain no shortness of breath at rest she has some shortness of breath with activity, no cough no nausea or vomiting no abdominal pain no diarrhea no urinary symptoms. White blood count is coming down gradually, patient remains on IV Rocephin and IV Zithromax, pulmonary critical care, and cardiology are following, echocardiogram revealed severe pulmonary hypertension. On 11/07/2023 for patient's alert and oriented 3.repeat chest x-ray has been ordered. Patient also started on nystatin for thrush. Incentive spirometer ordered. Patient complaining of constipation will order Colace. Patient remains on IV antibiotics. radiology pulmonary service is following On 11/08/2023 Patient is alert and oriented 3. Repeat chest x-ray completed showing patchy perihilar and left basal infiltrate correlate for pneumonia patient remains on azithromycin and IV Rocephin.Current vital signs temp 98.3, heart rate 90, respiratory rate 18, blood pressure for over 63 with pulse ox of 100% on 4 L On 11/09/2023 patient was seen and examined on the medical floor she is alert and oriented x 3 in no apparent distress there is no fever or chills no headache or dizziness no chest pain no shortness of breath at rest she has some shortness of breath with activity, she has occasional cough, no nausea or vomiting, no diarrhea no urinary symptoms. White blood count is coming down gradually, patient remains on IV Rocephin and IV Zithromax, echocardiogram revealed severe pulmonary hypertension. I will ask pulmonary to reevaluate the patient, she is not feeling better, patient has generalized abdominal pain, will check abdominal ultrasound, consultation for infectious disease was initiated. On 12/10/2023 patient was seen and examined on the medical floor she is alert and oriented x 3 in no apparent distress she is complaining of generalized weakness otherwise she denies any complaints there is no fever or chills no headache or dizziness no chest pain no shortness of breath no cough no nausea or vomiting no abdominal pain no diarrhea and no urinary symptoms, her vital exam reveals a temperature of 98.1 pulse 65 respiration 15 blood pressure 110/74 pulse ox 91% on 6 L nasal cannula, white blood count 13.3 hemoglobin 9.5 platelet count 435 BUN 10.6 creatinine 0.5 chest x-ray reveals evidence of pulmonary venous congestion, echocardiogram reveals severe pulmonary hypertension. On 11/11/2023 patient is alert and oriented 3. Patient planning to some nausea this morning Zofran ordered. Patient remains on IV antibiotics.current vital signs temp 97.8, heart rate 89, respiratory rate 15, blood pressure 119/73 with a pulse ox of 93% on 5 L. On 11/12/2023 patient is alert and oriented 3. Patient reports improvement with nausea. Repeat labs pending. Infectious disease services is following patient remains on by mouth antibiotic. Current vital signs temp 97.8, heart rate 68, respiratory rate 15, blood pressure 97/62 with a pulse ox of 94% on 5 L. On 11/13/2023 patient was seen and examined on the medical floor she is complaining of generalized weakness and complaining of back pain, otherwise she denies any complaints at this time, today she developed a rash on the left upper back area compatible with herpes zoster eruption, she will be started on Valtrex 1 g 3 times daily, she will be continued on Vfend and IV vancomycin infectious disease are following, white blood count is coming down, will follow closely On 11/14/2023 patient's alert and oriented 3 complaining of painOn rash area. Patient remains on Valtrex and vancomycin patient reports a generalized weakness. Patient denies chest pain or shortness breath.Current vital signs temp 98.1, heart rate 80, respiratory rate 19, blood pressure 120/78 with pulse ox 94% on 4 L On 11/15/2023 patient is alert and oriented x 3. Patient is complaining of some left-sided pain. Valtrex DC'd per infectious disease. WBC 10.69, hemoglobin 8.4. Current vital signs temp 98.0, heart rate 102, respiratory rate 18, blood pressure 97/68 with a pulse ox of 93% on room air On 11/16/2023 patient was seen and examined on the medical floor she is alert and oriented x 3 in no apparent distress she is complaining mostly of left flank pain otherwise she denies any complaints there is no fever or chills no headache or dizziness no chest pain no shortness of breath no cough no nausea or vomiting no abdominal pain no diarrhea no urinary symptoms. White blood count is up from 10-16, repeat chest x-ray revealed bibasilar infiltrate, at this time consultation again for pulmonary was initiated, blood culture and urine culture were repeated, infectious disease will be notified, also speech therapy was consulted for swallow evaluation to rule out aspiration. Continue with current management otherwise, Dr. English will manage antibiotics. On 11/17/2023 patient was seen and examined on the medical floor she is alert and oriented x 3 in no apparent distress she is still complaining of pain in the left flank area otherwise she denies any complaints at this time patient is reporting severe pain, pain management services were consulted, and a CT scan of the thoracic spine was ordered, otherwise patient is improving gradually, white blood count is down from 16-11 today pulmonary input and infectious disease input reviewed, will follow closely Objective - Vital Signs Vital signs: Vital Signs Temp 97.9 F 06/24/24 07:53 Pulse 98 11/17/23 07:53 Resp 16 11/17/23 07:53 BP 107/67 11/17/23 07:53 Pulse Ox 91 L 11/17/23 07:53 FiO2 Intake & Output 11/16/23 11/17/23 11/17/23 18:59 06:59 18:59 Output Total 1250 550 Balance -1250 -550 Output: Urine 1250 550 Other: Voiding Method Incontinent Incontinent Incontinent External Catheter External Catheter External Catheter # Voids 1 # Bowel Movements 1 - Exam Head normocephalic Neck supple Lungs clear to auscultation bilaterally no wheezing or crackles Heart regular rate and rhythm S1-S2, no rub or gallop Abdomen is soft nontender nondistended positive bowel sounds no hepatosplenomegaly Extremities no edema Neuro alert and orientated to 3 - Labs CBC & Chem 7: 11/17/23 07:36 11/17/23 07:36 Labs: Abnormal Lab Results - Last 24 Hours (Table) 11/16/23 11/16/23 11/16/23 Range/Units 11:51 13:47 16:43 WBC (3.8-10.6) k/uL RBC (3.80-5.40) m/uL Hgb (11.4-16.0) gm/dL Hct (34.0-46.0) % MCV (80.0-100.0) fL MCHC (31.0-37.0) g/dL Neutrophils # (1.3-7.7) k/uL Chloride (96-109) mmol/L Anion Gap (4.00-12.00) mmol/L POC Glucose (mg/dL) 186 H 130 H (70-110) mg/dL C-Reactive Protein (0.00-0.80) mg/dL NT-Pro-B Natriuret Pep (0-125) pg/mL Albumin (3.8-4.9) g/dL Globulin (1.6-3.3) g/dL Albumin/Globulin Ratio (1.60-3.17) Ratio Procalcitonin (0.02-0.09) ng/mL Urine Glucose (UA) 3+ H (Negative) Urine Blood Small H (Negative) Ur Leukocyte Esterase Large H (Negative) Urine RBC 12 H (0-5) /hpf Urine WBC 36 H (0-5) /hpf 11/16/23 11/17/23 11/17/23 Range/Units 20:15 07:36 07:36 WBC 11.0 H (3.8-10.6) k/uL RBC 3.24 L (3.80-5.40) m/uL Hgb 9.8 L (11.4-16.0) gm/dL Hct 32.5 L (34.0-46.0) % MCV 100.2 H (80.0-100.0) fL MCHC 30.0 L (31.0-37.0) g/dL Neutrophils # 8.5 H (1.3-7.7) k/uL Chloride (96-109) mmol/L Anion Gap (4.00-12.00) mmol/L POC Glucose (mg/dL) 210 H (70-110) mg/dL C-Reactive Protein (0.00-0.80) mg/dL NT-Pro-B Natriuret Pep (0-125) pg/mL Albumin (3.8-4.9) g/dL Globulin (1.6-3.3) g/dL Albumin/Globulin Ratio (1.60-3.17) Ratio Procalcitonin 0.30 H (0.02-0.09) ng/mL Urine Glucose (UA) (Negative) Urine Blood (Negative) Ur Leukocyte Esterase (Negative) Urine RBC (0-5) /hpf Urine WBC (0-5) /hpf 11/17/23 11/17/23 Range/Units 07:36 11:45 WBC (3.8-10.6) k/uL RBC (3.80-5.40) m/uL Hgb (11.4-16.0) gm/dL Hct (34.0-46.0) % MCV (80.0-100.0) fL MCHC (31.0-37.0) g/dL Neutrophils # (1.3-7.7) k/uL Chloride 94 L (96-109) mmol/L Anion Gap 13.50 H (4.00-12.00) mmol/L POC Glucose (mg/dL) 179 H (70-110) mg/dL C-Reactive Protein 13.40 H (0.00-0.80) mg/dL NT-Pro-B Natriuret Pep 3144 H (0-125) pg/mL Albumin 2.7 L (3.8-4.9) g/dL Globulin 4.3 H (1.6-3.3) g/dL Albumin/Globulin Ratio 0.63 L (1.60-3.17) Ratio Procalcitonin (0.02-0.09) ng/mL Urine Glucose (UA) (Negative) Urine Blood (Negative) Ur Leukocyte Esterase (Negative) Urine RBC (0-5) /hpf Urine WBC (0-5) /hpf Assessment and Plan Assessment: 1.Chest pain and shortness of breath possibly secondary to acute exacerbation of diastolic congestive heart failure and/or pneumonia 2. Urinary tract infection. Patient did complete outpatient treatment will order urine culture 3. Acute on chronic diastolic congestive heart failure 4. Possible pneumonia seen on computed tomography scan with elevated calcitonin 5. History of coronary artery disease with recent history of PCI to the left circumflex in July 2023 6. History of diabetes mellitus type 2 7. History of hyperlipidemia 8. History of DVT 9. Evidence of severe pulmonary hypertension on echocardiogram 10. History of previous pneumonia secondary to Pseudomonas 11. Oral thrush patient started on nystatin 12. Shingles. Patient started on Valtrex. Valtrex DC'd per infectious disease DVT prophylaxis Lovenox. GI prophylaxis Protonix Infectious disease service is following Sputum urine and blood cultures ordered Repeat labs ordered PT OT service is consulted
--- NOTE | 2023-11-17 18:42 | CT ---
EXAMINATION TYPE: CT thoracic spine wo con CT DLP: 1483.2 mGycm, Automated exposure control for dose reduction was used. DATE OF EXAM: 11/17/2023 5:41 PM COMPARISON: CT 04/24/2023 CLINICAL INDICATION:Female, 73 years old with history of pain; PHH, back pain TECHNIQUE: Axial images of the thoracic spine were obtained without contrast. Coronal and sagittal re formats were performed. Contrast used: mL of , none Oral contrast used: none FINDINGS: Moderate multilevel degeneration changes throughout the joint space narrowing osteophyte f ormation and Schmorl's nodes, vacuum disc phenomenon and facet joint arthropathy. The thoracic verteb ral bodies have preserved heights and alignment. Intervertebral discs and osseous structures have n ormal appearance. No extradural defects definitively visualized. Small left pleural effusion. Atherosclerosis of the coronary arteries. Calcifications aortic valve. I ntralobular septal thickening of the pulmonary vasculature. Bilateral renal cysts. Thin calcification along the right renal cyst. IMPRESSION: 1. No spinal canal stenosis is identified. 2. Moderate multilevel degeneration changes spine No evidence for significant neural foraminal steno sis. 3. Left pleural effusion with pulmonary vascular congestion correlate with serum BNP.
--- NOTE | 2023-11-17 19:53 | XR ---
EXAMINATION TYPE: XR chest 2V DATE OF EXAM: 11/04/2023 3:10 PM CLINICAL INDICATION:Female, 73 years old with history of pneumonia; [facility] COMPARISON: Chest radiographs from 11/03/2023. TECHNIQUE: XR chest 2V Frontal and lateral views of the chest. FINDINGS: Lungs/Pleura: Improved aeration the left lower lung airspace opacities. There is no evidence of pleur al effusion, focal consolidation, or pneumothorax. Pulmonary vascularity: Unremarkable. Heart/mediastinum: Cardiomediastinal silhouette is unremarkable. Musculoskeletal: No acute osseous pathology. IMPRESSION: Improved aeration of the left lower lung airspace opacities.
[2023-11-17 21:38] LABS: Glucose,Whole Blood 183 mg/dL (70-110)
[2023-11-18 06:04] LABS: Glucose,Whole Blood 96 mg/dL (70-110)
--- NOTE | 2023-11-18 07:36 | P.PN ---
Subjective Progress Note Date: 11/17/23 Principal diagnosis: Reason for follow-up is urinary tract infection Patient is a 73-year-old female with a past medical history significant for diabetes mellitus DVT osteoarthritis heart failure pneumonia and UTI presenting to the hospital for evaluation of right-sided flank pain and abdominal area patient did have a positive UA elevated white count urine culture with Sri glabrata prompted this consultation on today's evaluation that is 11/17/2023, Patient is afebrile patient is currently on 4 L nasal cannula oxygen and denies having any worsening shortness of breath, the patient still complaining of left lower rib cage chest pain she did have a cough unable to bring up any sputum no vomiting or diarrhea has been reported. Patient white count is down to 11,000 creatinine 0 point 9 repeat procalcitonin is 0.30 blood culture repeat pending repeat urine is negative Objective - Vital Signs Vital signs: Vital Signs Temp 97.9 F 11/17/23 07:53 Pulse 98 11/17/23 07:53 Resp 16 11/17/23 07:53 BP 107/67 11/17/23 07:53 Pulse Ox 91 L 11/17/23 07:53 FiO2 Intake & Output 11/16/23 11/17/23 11/17/23 18:59 06:59 18:59 Output Total 1250 550 Balance -1250 -550 Output: Urine 1250 550 Other: Voiding Method Incontinent Incontinent Incontinent External Catheter External Catheter External Catheter # Voids 1 # Bowel Movements 1 - Exam GENERAL DESCRIPTION: An elderly female lying in bed in no distress RESPIRATORY SYSTEM: Unlabored breathing , decreased breath sounds at bases HEART: S1 S2 regular rate and rhythm , ABDOMEN: Soft , no tenderness EXTREMITIES: No edema feet SKIN: Right side upper back did have some skin tear, does not look vesicles if she did have shingles which would have seen more extensive rash in lateral distribution - Labs CBC & Chem 7: 11/17/23 07:36 11/17/23 07:36 Labs: Abnormal Lab Results - Last 24 Hours (Table) 11/16/23 11/16/23 11/16/23 Range/Units 11:51 13:47 16:43 WBC (3.8-10.6) k/uL RBC (3.80-5.40) m/uL Hgb (11.4-16.0) gm/dL Hct (34.0-46.0) % MCV (80.0-100.0) fL MCHC (31.0-37.0) g/dL Neutrophils # (1.3-7.7) k/uL Chloride (96-109) mmol/L Anion Gap (4.00-12.00) mmol/L POC Glucose (mg/dL) 186 H 130 H (70-110) mg/dL C-Reactive Protein (0.00-0.80) mg/dL NT-Pro-B Natriuret Pep (0-125) pg/mL Albumin (3.8-4.9) g/dL Globulin (1.6-3.3) g/dL Albumin/Globulin Ratio (1.60-3.17) Ratio Urine Glucose (UA) 3+ H (Negative) Urine Blood Small H (Negative) Ur Leukocyte Esterase Large H (Negative) Urine RBC 12 H (0-5) /hpf Urine WBC 36 H (0-5) /hpf 11/16/23 11/17/23 11/17/23 Range/Units 20:15 07:36 07:36 WBC 11.0 H (3.8-10.6) k/uL RBC 3.24 L (3.80-5.40) m/uL Hgb 9.8 L (11.4-16.0) gm/dL Hct 32.5 L (34.0-46.0) % MCV 100.2 H (80.0-100.0) fL MCHC 30.0 L (31.0-37.0) g/dL Neutrophils # 8.5 H (1.3-7.7) k/uL Chloride 94 L (96-109) mmol/L Anion Gap 13.50 H (4.00-12.00) mmol/L POC Glucose (mg/dL) 210 H (70-110) mg/dL C-Reactive Protein 13.40 H (0.00-0.80) mg/dL NT-Pro-B Natriuret Pep 3144 H (0-125) pg/mL Albumin 2.7 L (3.8-4.9) g/dL Globulin 4.3 H (1.6-3.3) g/dL Albumin/Globulin Ratio 0.63 L (1.60-3.17) Ratio Urine Glucose (UA) (Negative) Urine Blood (Negative) Ur Leukocyte Esterase (Negative) Urine RBC (0-5) /hpf Urine WBC (0-5) /hpf Assessment and Plan (1) UTI (urinary tract infection) Current Visit: Yes Status: Acute Code(s): N39.0 - URINARY TRACT INFECTION, SITE NOT SPECIFIED SNOMED Code(s): 06516812 (2) Leukocytosis Current Visit: Yes Status: Acute Code(s): D72.829 - ELEVATED WHITE BLOOD CELL COUNT, UNSPECIFIED SNOMED Code(s): 192816625 Plan: 1patient is in the hospital with the flank pain nausea and vomiting did have a positive UA likely concerning for symptomatic UTI/pyelonephritis with urine culture growing Sri glabrata likely etiology of her illness, patient did have a chest x-ray was reported negative for acute infiltrate CT abdominal pelvis did show some left lower lobe infiltrate and effusion questionably complex atelectasis clinically not behaving as pneumonia. 2patient did have improvement her white count urine is now growing Enterococcus patient that is sensitive to both vancomycin as well as Macrobid, patient have elevated vancomycin trough vancomycin has been discontinued to decrease risk of nephrotoxicity patient started on Macrobid to continue to follow-up 5 days to finish her course of therapy 3-patient did have some skin lesion on the left upper back area not clinically compatible with shingles if she has any shingles for the last 3 to 4 days we should have seen more extensive distribution in no pattern which I did not see this has been explained to the patient and the I do not see any use for Valtrex which has been discontinued and no worsening rash has been noticed 4patient with the rib cage pain likely atelectasis, with repeat chest x-ray shows evidence of small effusion and atelectasis has been instructed again on incentive spirometry, patient has been offered CT of the chest for better definition of the left lower lobe abnormality however the patient has been refusing mention she cannot go for the CT pain medicine has been consulted will wait for the recommendation 5-patient white count down to 11,000 from yesterday without any change in her antibiotic, continue with the Macrobid pulmonary has also seen the patient and recommended to continue with the Lasix Case was discussed with the admitting physician Dictation was produced using [employer] dictation software. please excuse any grammatical, word or spelling errors. Time with Patient: Greater than 30
[2023-11-18 10:45] LABS: ALT 12 U/L (4-34); AST 20 U/L (14-36); African American GFR (CKD) 80 (>60 ml/min/1.73 sqM); Albumin 2.8 g/dL (3.5-5.0); Albumin/Globulin Ratio 0.7; Alkaline Phosphatase 126 U/L (38-126); Anion Gap 6 mmol/L; Blood Urea Nitrogen 15 mg/dL (7-17); Calcium 8.7 mg/dL (8.4-10.2); Carbon Dioxide 34 mmol/L (22-30); Chloride 95 mmol/L (98-107); Globulin 4.1 g/dL; Glucose 204 mg/dL (74-99); Non-African American GFR(CKD) 69 (>60 ml/min/1.73 sqM); Potassium 3.8 mmol/L (3.5-5.1); Sodium 135 mmol/L (137-145); Total Bilirubin 0.5 mg/dL (0.2-1.3); Total Protein 6.9 g/dL (6.3-8.2)
[2023-11-18 10:47] LABS: Basophils % (A) 0 %; Eosinophils # (A) 0.7 k/uL (0-0.7); Eosinophils % (A) 6 %; HCT 32.6 % (34.0-46.0); HGB 9.5 gm/dL (11.4-16.0); Hypochromasia Marked; Lymphocytes # (A) 0.8 k/uL (1.0-4.8); Lymphocytes % (A) 7 %; MCH 29.5 pg (25.0-35.0); MCHC 29.1 g/dL (31.0-37.0); MCV 101.5 fL (80.0-100.0); Macrocytosis Slight; Mean Platelet Volume 8.3; Monocytes # (A) 0.8 k/uL (0-1.0); Monocytes % (A) 7 %; Neutrophils % (A) 79 %; Platelet Count 394 k/uL (150-450); Poikilocytosis Slight; RBC 3.21 m/uL (3.80-5.40); RDW 15.1 % (11.5-15.5); WBC 11.4 k/uL (3.8-10.6)
--- NOTE | 2023-11-18 10:55 | P.PN ---
Subjective Progress Note Date: 11/18/23 This is a 73-year-old female patient who presented to the ER with concerns of chest and abdominal pain that she believes is secondary from pneumonia. Patient reports she was recently treated for UTI outpatient reports that she has had increased weakness and shortness of breath over the past week. Patient has a past medical history of CHF, diabetes mellitus, DVT, I disorder, osteoarthritis, obesity and ex-smoker. Chest x-ray completed in ER showing no acute process. CT of abdomen and pelvis completed showing small left lower lobe infiltrate and pleural effusion small amount of free fluid surrounding the spleen stable nonobstructing bilateral renal calcifications. Troponins negative 3. UA show ing positive for urinary tract infection. ProCalcitonin also elevated at 15.8. Patient was started on IV antibiotics Rocephin and Zithromax. Creatinine 0.56 bun 14 BNP elevated 2920. At this time pulmonary cardiology services will be consulted. Sputum culture ordered. Blood culture ordered. Current vital signs temp 98.7, heart rate 86, respiratory rate 17, blood pressure 111/62 with pulse ox of 92% on 3 L On 11/05/2023 patient's alert and oriented 3. Patient reports generalized weakness and pain. Patient remains on IV Rocephin and Zithromax. Patient also started on IV Lasix per cardiology. Patient denies chest pain.Current vital signs temp 98.1, heart rate 11, respiratory rate 16, blood pressure 122/63 with pulse ox 96% on room air. On 11/06/2023 patient was seen and examined on the medical floor she is alert and oriented x 3 in no apparent distress there is no fever or chills no headache or dizziness no chest pain no shortness of breath at rest she has some shortness of breath with activity, no cough no nausea or vomiting no abdominal pain no diarrhea no urinary symptoms. White blood count is coming down gradually, patient remains on IV Rocephin and IV Zithromax, pulmonary critical care, and cardiology are following, echocardiogram revealed severe pulmonary hypertension. On 11/07/2023 for patient's alert and oriented 3.repeat chest x-ray has been ordered. Patient also started on nystatin for thrush. Incentive spirometer ordered. Patient complaining of constipation will order Colace. Patient remains on IV antibiotics. radiology pulmonary service is following On 11/08/2023 Patient is alert and oriented 3. Repeat chest x-ray completed showing patchy perihilar and left basal infiltrate correlate for pneumonia patient remains on azithromycin and IV Rocephin.Current vital signs temp 98.3, heart rate 90, respiratory rate 18, blood pressure for over 63 with pulse ox of 100% on 4 L On 11/09/2023 patient was seen and examined on the medical floor she is alert and oriented x 3 in no apparent distress there is no fever or chills no headache or dizziness no chest pain no shortness of breath at rest she has some shortness of breath with activity, she has occasional cough, no nausea or vomiting, no diarrhea no urinary symptoms. White blood count is coming down gradually, patient remains on IV Rocephin and IV Zithromax, echocardiogram revealed severe pulmonary hypertension. I will ask pulmonary to reevaluate the patient, she is not feeling better, patient has generalized abdominal pain, will check abdominal ultrasound, consultation for infectious disease was initiated. On 12/10/2023 patient was seen and examined on the medical floor she is alert and oriented x 3 in no apparent distress she is complaining of generalized weakness otherwise she denies any complaints there is no fever or chills no headache or dizziness no chest pain no shortness of breath no cough no nausea or vomiting no abdominal pain no diarrhea and no urinary symptoms, her vital exam reveals a temperature of 98.1 pulse 65 respiration 15 blood pressure 110/74 pulse ox 91% on 6 L nasal cannula, white blood count 13.3 hemoglobin 9.5 platelet count 435 BUN 10.6 creatinine 0.5 chest x-ray reveals evidence of pulmonary venous congestion, echocardiogram reveals severe pulmonary hypertension. On 11/11/2023 patient is alert and oriented 3. Patient planning to some nausea this morning Zofran ordered. Patient remains on IV antibiotics.current vital signs temp 97.8, heart rate 89, respiratory rate 15, blood pressure 119/73 with a pulse ox of 93% on 5 L. On 11/12/2023 patient is alert and oriented 3. Patient reports improvement with nausea. Repeat labs pending. Infectious disease services is following patient remains on by mouth antibiotic. Current vital signs temp 97.8, heart rate 68, respiratory rate 15, blood pressure 97/62 with a pulse ox of 94% on 5 L. On 11/13/2023 patient was seen and examined on the medical floor she is complaining of generalized weakness and complaining of back pain, otherwise she denies any complaints at this time, today she developed a rash on the left upper back area compatible with herpes zoster eruption, she will be started on Valtrex 1 g 3 times daily, she will be continued on Vfend and IV vancomycin infectious disease are following, white blood count is coming down, will follow closely On 11/14/2023 patient's alert and oriented 3 complaining of painOn rash area. Patient remains on Valtrex and vancomycin patient reports a generalized weakness. Patient denies chest pain or shortness breath.Current vital signs temp 98.1, heart rate 80, respiratory rate 19, blood pressure 120/78 with pulse ox 94% on 4 L On 11/15/2023 patient is alert and oriented x 3. Patient is complaining of some left-sided pain. Valtrex DC'd per infectious disease. WBC 10.69, hemoglobin 8.4. Current vital signs temp 98.0, heart rate 102, respiratory rate 18, blood pressure 97/68 with a pulse ox of 93% on room air On 11/16/2023 patient was seen and examined on the medical floor she is alert and oriented x 3 in no apparent distress she is complaining mostly of left flank pain otherwise she denies any complaints there is no fever or chills no headache or dizziness no chest pain no shortness of breath no cough no nausea or vomiting no abdominal pain no diarrhea no urinary symptoms. White blood count is up from 10-16, repeat chest x-ray revealed bibasilar infiltrate, at this time consultation again for pulmonary was initiated, blood culture and urine culture were repeated, infectious disease will be notified, also speech therapy was consulted for swallow evaluation to rule out aspiration. Continue with current management otherwise, Dr. English will manage antibiotics. On 11/17/2023 patient was seen and examined on the medical floor she is alert and oriented x 3 in no apparent distress she is still complaining of pain in the left flank area otherwise she denies any complaints at this time patient is reporting severe pain, pain management services were consulted, and a CT scan of the thoracic spine was ordered, otherwise patient is improving gradually, white blood count is down from 16-11 today pulmonary input and infectious disease input reviewed, will follow closely on 11/18/2023atient's alert and oriented 3. CT of thoracic spine completed showing no spinal canal stenosis moderate multilevel degeneration changes no evidence for significant stenosis.pain management has been consulted. Chest x- ray completed showing improved aeration of the left lower lung disease. Objective - Vital Signs Vital signs: Vital Signs Temp 97.5 F L 11/18/23 08:38 Pulse 76 11/18/23 08:38 Resp 14 11/18/23 08:38 BP 113/74 11/18/23 08:38 Pulse Ox 94 L 11/18/23 08:38 FiO2 Intake & Output 11/17/23 11/18/23 11/18/23 18:59 06:59 18:59 Output Total 550 Balance -550 Output: Urine 550 Other: Voiding Method Incontinent Incontinent External Catheter External Catheter # Voids 2 # Bowel Movements 1 - Exam Head normocephalic Neck supple Lungs clear to auscultation bilaterally no wheezing or crackles Heart regular rate and rhythm S1-S2, no rub or gallop Abdomen is soft nontender nondistended positive bowel sounds no hepatosplenomegaly Extremities no edema Neuro alert and orientated to 3 - Labs CBC & Chem 7: 11/18/23 09:50 11/18/23 09:50 Labs: Abnormal Lab Results - Last 24 Hours (Table) 11/17/23 11/17/23 11/17/23 Range/Units 07:36 07:36 11:45 WBC (3.8-10.6) k/uL RBC (3.80-5.40) m/uL Hgb (11.4-16.0) gm/dL Hct (34.0-46.0) % MCV (80.0-100.0) fL MCHC (31.0-37.0) g/dL Neutrophils # (1.3-7.7) k/uL Lymphocytes # (1.0-4.8) k/uL Sodium (137-145) mmol/L Chloride 94 L (96-109) mmol/L Carbon Dioxide (22-30) mmol/L Anion Gap 13.50 H (4.00-12.00) mmol/L Glucose (74-99) mg/dL POC Glucose (mg/dL) 179 H (70-110) mg/dL C-Reactive Protein 13.40 H (0.00-0.80) mg/dL NT-Pro-B Natriuret Pep 3144 H (0-125) pg/mL Albumin 2.7 L (3.8-4.9) g/dL Globulin 4.3 H (1.6-3.3) g/dL Albumin/Globulin Ratio 0.63 L (1.60-3.17) Ratio Procalcitonin 0.30 H (0.02-0.09) ng/mL 11/17/23 11/17/23 11/18/23 Range/Units 16:46 21:37 09:50 WBC 11.4 H (3.8-10.6) k/uL RBC 3.21 L (3.80-5.40) m/uL Hgb 9.5 L (11.4-16.0) gm/dL Hct 32.6 L (34.0-46.0) % MCV 101.5 H (80.0-100.0) fL MCHC 29.1 L (31.0-37.0) g/dL Neutrophils # 9.0 H (1.3-7.7) k/uL Lymphocytes # 0.8 L (1.0-4.8) k/uL Sodium (137-145) mmol/L Chloride (96-109) mmol/L Carbon Dioxide (22-30) mmol/L Anion Gap (4.00-12.00) mmol/L Glucose (74-99) mg/dL POC Glucose (mg/dL) 124 H 183 H (70-110) mg/dL C-Reactive Protein (0.00-0.80) mg/dL NT-Pro-B Natriuret Pep (0-125) pg/mL Albumin (3.8-4.9) g/dL Globulin (1.6-3.3) g/dL Albumin/Globulin Ratio (1.60-3.17) Ratio Procalcitonin (0.02-0.09) ng/mL 11/18/23 Range/Units 09:50 WBC (3.8-10.6) k/uL RBC (3.80-5.40) m/uL Hgb (11.4-16.0) gm/dL Hct (34.0-46.0) % MCV (80.0-100.0) fL MCHC (31.0-37.0) g/dL Neutrophils # (1.3-7.7) k/uL Lymphocytes # (1.0-4.8) k/uL Sodium 135 L (137-145) mmol/L Chloride 95 L (96-109) mmol/L Carbon Dioxide 34 H (22-30) mmol/L Anion Gap (4.00-12.00) mmol/L Glucose 204 H (74-99) mg/dL POC Glucose (mg/dL) (70-110) mg/dL C-Reactive Protein (0.00-0.80) mg/dL NT-Pro-B Natriuret Pep (0-125) pg/mL Albumin 2.8 L (3.8-4.9) g/dL Globulin (1.6-3.3) g/dL Albumin/Globulin Ratio (1.60-3.17) Ratio Procalcitonin (0.02-0.09) ng/mL Microbiology - Last 24 Hours (Table) 11/16/23 11:13 Blood Culture - Preliminary Blood 11/16/23 13:47 Urine Culture - Final Urine,Clean Catch Assessment and Plan Assessment: 1.Chest pain and shortness of breath possibly secondary to acute exacerbation of diastolic congestive heart failure and/or pneumonia 2. Urinary tract infection. Patient did complete outpatient treatment will order urine culture 3. Acute on chronic diastolic congestive heart failure 4. Possible pneumonia seen on computed tomography scan with elevated calcitonin 5. History of coronary artery disease with recent history of PCI to the left circumflex in July 2023 6. History of diabetes mellitus type 2 7. History of hyperlipidemia 8. History of DVT 9. Evidence of severe pulmonary hypertension on echocardiogram 10. History of previous pneumonia secondary to Pseudomonas 11. Oral thrush patient started on nystatin 12. Shingles. Patient started on Valtrex. Valtrex DC'd per infectious disease DVT prophylaxis Lovenox. GI prophylaxis Protonix Infectious disease service is following Sputum urine and blood cultures ordered Repeat labs ordered PT OT service is consulted
[2023-11-18] MEDS: NYSTATIN 100,000 UNIT/GM POWD 15 GM TOPICAL SCH (11:35)
[2023-11-18 11:41] LABS: Glucose,Whole Blood 168 mg/dL (70-110)
--- NOTE | 2023-11-18 13:02 | P.PN ---
Subjective Progress Note Date: 11/18/23 Patient is a 73-year-old white female with past medical history significant for congestive heart failure, kidney stones, coronary artery disease with recent PCI/stenting of the left circumflex artery, diabetes mellitus, DVT, obesity. Patient presented emergency room yesterday evening with multiple complaints. Approximately, 1 week ago she began to noticed right-sided flank pain with radiation to the right upper abdomen. Of note, she states that she was recently treated outpatient for urinary tract infection by her primary care provider, Dr. Angulo, and she completed her antibiotics approximately 1 week ago. She denies any further urinary complaints such as dysuria, urinary frequency, incontinence, hematuria. She does have history of bilateral kidney stones. Also, reports an isolated episode of nausea and vomiting and intermittent diarrhea. A CT of the abdomen and pelvis without contrast demonstrated stable nonobstructing bilateral renal calcifications. Otherwise, unremarkable for intrabdominal process. There was incidentally a small left lower lobe pleural effusion and likely atelectasis versus infiltrate. More recently, she has noticed increased shortness of breath with exertion. She has been generally weak and fatigued. Also, sleeping alot in the chair. She has bilateral lower extremity swelling. Denies any chest pain, heart palpitations, syncopal events. Patient has known chronic diastolic congestive heart failure with preserved left ventricular ejection fraction and secondary pulmonary hypertension. She takes Lasix 40 mg twice a day. She has not missed any doses. Chest x-ray demonstrates cardiomegaly with mild pulmonary vascular congestion and interstitial edema. NT proBNP elevated at 2900. Of note, she was recently hospitalized July, and treated for possible pneumonia. Initially, completed a course of IV cefepime and then ciprofloxacin. She does endorse a intermittent cough with mostly clear sputum, occasionally yellow in color. Denies any fevers, hemoptysis, chest pain. During the same hospitalization mentioned above, she also underwent heart catheterization on 08/06/2023, and received a stent to the mid left circumflex. She states she has been taking all of her medications as directed. CBC: WBC count 14.1, hemoglobin 12.2, hematocrit 38.8, platelets 399. CMP: Sodium 136, potassium 3.7, chloride 104, serum bicarb 28, BUN 14, creatinine 0.56, glucose 93. Lactic acid level 1.4. LFTs unremarkable. EKG shows normal sinus rhythm with nonspecific t wave changes. Troponin less than 0.012 x 2. She is currently in the emergency depa rtment, room 5. She is resting comfortably on the stretcher, on 3 L/min nasal cannula. SpO2 96%. Vital signs are stable. 11/05/2023, the patient continues to have pain in her back.. No fever. No chills. Hemodynamic stable and she remains on liters of oxygen by nasal cannula. The patient remains on IV Rocephin and Zithromax. Blood cultures are still pending for now. They are still negative. The white cell count of 14 with a hemoglobin of 10.7 and a platelet count of 481. Sodium is at 139, BUN is 9 with a creatinine of 0.6 and a potassium level of 3.5. Echocardiogram has been ordered and the results are still pending. Ultrasound of the kidneys and the bladder showed renal cystic changes without any acute abnormalities. The patient is seen today November 10, 2023 in follow-up on the regular medical floor. She is currently awake and alert in no acute distress. Maintaining O2 saturations in the 90s on 6 L high flow nasal cannula. She has been afebrile. Hemodynamically stable. Follow-up chest x-ray reveals cardiomegaly with pulmonary vascular congestion and small pleural effusions. White count 13.3. Hemoglobin 9.5. Platelets 435. Sodium 137. Potassium 4.2. Bicarb 33. BUN 10.6. Creatinine 0.5. Glucose 85. Procalcitonin 0.33. She remains on antibiotics in the form of ceftriaxone. Continued on diuretics. Lovenox for DVT prophylaxis. Currently net -2.4 L balance. Abdominal ultrasound revealed mild hepatosplenomegaly. Nonobstructing superior pole right renal calcification. Simple appearing cyst in the superior pole of the right kidney and smaller simple appearing upper pole left renal cyst. The patient is seen today November 18, 2023 in follow-up on the regular medical floor. She is currently resting comfortably in bed. Maintaining O2 saturations in the 90s on 2 L/min per nasal cannula. Her procalcitonin was 0.3. She does have Enterococcus faecium urinary tract infection. She remains on ceftriaxone and Macrobid per ID service. She has normal saline at KVO. Chest x-ray shows some atelectasis of the left lung base. Improved left lower lobe infiltrate. Blood cultures revealed no growth. She remains afebrile. Hemodynamically stable. White count 11.4. Hemoglobin 9.5. Platelets 394. Sodium 135. Potassium 3.8. Bicarb 34. BUN 15. Creatinine 0.84. Glucose 204. She is continued on bronchodilators as needed. Remains on oral diuretics. Lovenox for DVT prophylaxis. Objective - Vital Signs Vital signs: Vital Signs Temp 97.5 F L 11/18/23 08:38 Pulse 76 11/18/23 08:38 Resp 14 11/18/23 08:38 BP 113/74 11/18/23 08:38 Pulse Ox 94 L 11/18/23 12:00 FiO2 Intake & Output 11/17/23 11/18/23 11/18/23 18:59 06:59 18:59 Output Total 550 Balance -550 Weight 113.398 kg Output: Urine 550 Other: Voiding Method Incontinent Incontinent Incontinent External Catheter External Catheter External Catheter # Voids 2 # Bowel Movements 1 - Exam GENERAL EXAM: Alert, 73-year-old female, on 2 L high flow nasal cannula, comfortable in no apparent distress. HEAD: Normocephalic. EYES: Normal reaction of pupils, equal size. NOSE: Clear with pink turbinates. THROAT: No erythema or exudates. NECK: No masses, no JVD. CHEST: No chest wall deformity. LUNGS: Equal air entry with basilar crackles bilaterally. CVS: S1 and S2 normal with no audible murmur, regular rhythm. ABDOMEN: No hepatosplenomegaly, normal bowel sounds, no guarding or rigidity. SPINE: No scoliosis or deformity SKIN: No rashes CENTRAL NERVOUS SYSTEM: No focal deficits, tone is normal in all 4 extremities. EXTREMITIES: There is 1-2+ peripheral edema. No clubbing, no cyanosis. Peripheral pulses are intact. - Labs CBC & Chem 7: 11/18/23 09:50 11/18/23 09:50 Labs: Abnormal Lab Results - Last 24 Hours (Table) 11/17/23 11/17/23 11/18/23 Range/Units 16:46 21:37 09:50 WBC 11.4 H (3.8-10.6) k/uL RBC 3.21 L (3.80-5.40) m/uL Hgb 9.5 L (11.4-16.0) gm/dL Hct 32.6 L (34.0-46.0) % MCV 101.5 H (80.0-100.0) fL MCHC 29.1 L (31.0-37.0) g/dL Neutrophils # 9.0 H (1.3-7.7) k/uL Lymphocytes # 0.8 L (1.0-4.8) k/uL Sodium (137-145) mmol/L Chloride (98-107) mmol/L Carbon Dioxide (22-30) mmol/L Glucose (74-99) mg/dL POC Glucose (mg/dL) 124 H 183 H (70-110) mg/dL Albumin (3.5-5.0) g/dL 11/18/23 11/18/23 Range/Units 09:50 11:40 WBC (3.8-10.6) k/uL RBC (3.80-5.40) m/uL Hgb (11.4-16.0) gm/dL Hct (34.0-46.0) % MCV (80.0-100.0) fL MCHC (31.0-37.0) g/dL Neutrophils # (1.3-7.7) k/uL Lymphocytes # (1.0-4.8) k/uL Sodium 135 L (137-145) mmol/L Chloride 95 L (98-107) mmol/L Carbon Dioxide 34 H (22-30) mmol/L Glucose 204 H (74-99) mg/dL POC Glucose (mg/dL) 168 H (70-110) mg/dL Albumin 2.8 L (3.5-5.0) g/dL Microbiology - Last 24 Hours (Table) 11/16/23 11:13 Blood Culture - Preliminary Blood 11/16/23 13:47 Urine Culture - Final Urine,Clean Catch Assessment and Plan Assessment: Urinary tract infection secondary to Enterococcus faecium. Procalcitonin level is considerably elevated at 15 initially, currently down to 0.30. Remains on Rocephin and Macrobid. Acute hypoxemic respiratory failure, likely secondary to mild exacerbation of diastolic congestive heart failure. Chest x-ray demonstrates cardiomegaly with mild pulmonary vascular congestion and interstitial edema. NT proBNP elevated at 2900. Abdominal CT demonstrated incidental small left lower lobe pleural effusion and possible atelectasis. Pneumonia and parapneumonic effusion felt less likely. Echocardiogram revealed preserved left ventricular systolic function. There is severe pulmonary hypertension with an RVSP of 74 mmHg. Follow-up chest x-ray reveals improved aeration of the left lung base. Right flank pain, with history of bilateral kidney stones. CT of the abdomen and pelvis without contrast demonstrated stable nonobstructing bilateral renal calcifications. Unremarkable for acute intra-abdominal process Recent outpatient treatment for urinary tract infection, reportedly completed entire course of antibiotics Coronary artery disease with recent history of PCI/stenting of the left circumflex artery on 08/06/2023 Chronic diastolic heart failure, patient is known to have a preserved left ventricular ejection fraction, severe pulmonary hypertension, and moderate to severe tricuspid regurgitation Diabetes mellitus type 2 History of hyperlipidemia History of DVT History of pneumonia, secondary to Pseudomonas Morbid obesity, with a BMI of 40.4 kg/m Plan: The patient was seen and evaluated Chest x-ray, labs and medications reviewed Chest x-ray showing improvement Currently down to oxygen at 2 L nasal cannula Remains on oral diuretics Remains on antibiotics per ID service Plan is for home with home care at discharge I have personally seen and examined the patient, performed the documentation and the assessment and plan as written. Number of minutes spent on the visit: 10.
[2023-11-18] MEDS: MAGNESIUM HYDROXIDE 2,400 MG/30 ML CUP PO PRN (14:00)
--- NOTE | 2023-11-18 16:44 | P.PN ---
Subjective Progress Note Date: 11/18/23 Principal diagnosis: Reason for follow-up is urinary tract infection Patient is a 73-year-old female with a past medical history significant for diabetes mellitus DVT osteoarthritis heart failure pneumonia and UTI presenting to the hospital for evaluation of right-sided flank pain and abdominal area patient did have a positive UA elevated white count urine culture with Sri glabrata prompted this consultation on today's evaluation that is 11/18/2023, patient has been afebrile, patient is breathing comfortably and is currently on 2 L nasal cannula oxygen patient still complaining of some left-sided chest pain she did have a cough with minimal sputum production apparently sputum culture has been collected per patient however I do not see that in the computer section is a still level as ordered. No nausea vomiting and no diarrhea. Patient white count is 11.4, creatinine 0.84 Objective - Vital Signs Vital signs: Vital Signs Temp 97.5 F L 11/18/23 08:38 Pulse 76 11/18/23 08:38 Resp 14 11/18/23 08:38 BP 113/74 11/18/23 08:38 Pulse Ox 94 L 11/18/23 12:00 FiO2 Intake & Output 11/17/23 11/18/23 11/18/23 18:59 06:59 18:59 Output Total 550 Balance -550 Weight 113.398 kg Output: Urine 550 Other: Voiding Method Incontinent Incontinent Incontinent External Catheter External Catheter External Catheter # Voids 2 # Bowel Movements 1 - Exam GENERAL DESCRIPTION: An elderly female lying in bed in no distress RESPIRATORY SYSTEM: Unlabored breathing , decreased breath sounds at bases HEART: S1 S2 regular rate and rhythm , ABDOMEN: Soft , no tenderness EXTREMITIES: No edema feet SKIN: Right side upper back did have some skin tear, does not look vesicles if she did have shingles which would have seen more extensive rash in lateral distribution - Labs CBC & Chem 7: 11/18/23 09:50 11/18/23 09:50 Labs: Abnormal Lab Results - Last 24 Hours (Table) 11/17/23 11/17/23 11/18/23 Range/Units 16:46 21:37 09:50 WBC 11.4 H (3.8-10.6) k/uL RBC 3.21 L (3.80-5.40) m/uL Hgb 9.5 L (11.4-16.0) gm/dL Hct 32.6 L (34.0-46.0) % MCV 101.5 H (80.0-100.0) fL MCHC 29.1 L (31.0-37.0) g/dL Neutrophils # 9.0 H (1.3-7.7) k/uL Lymphocytes # 0.8 L (1.0-4.8) k/uL Sodium (137-145) mmol/L Chloride (98-107) mmol/L Carbon Dioxide (22-30) mmol/L Glucose (74-99) mg/dL POC Glucose (mg/dL) 124 H 183 H (70-110) mg/dL Albumin (3.5-5.0) g/dL 11/18/23 11/18/23 Range/Units 09:50 11:40 WBC (3.8-10.6) k/uL RBC (3.80-5.40) m/uL Hgb (11.4-16.0) gm/dL Hct (34.0-46.0) % MCV (80.0-100.0) fL MCHC (31.0-37.0) g/dL Neutrophils # (1.3-7.7) k/uL Lymphocytes # (1.0-4.8) k/uL Sodium 135 L (137-145) mmol/L Chloride 95 L (98-107) mmol/L Carbon Dioxide 34 H (22-30) mmol/L Glucose 204 H (74-99) mg/dL POC Glucose (mg/dL) 168 H (70-110) mg/dL Albumin 2.8 L (3.5-5.0) g/dL Microbiology - Last 24 Hours (Table) 11/16/23 11:13 Blood Culture - Preliminary Blood 11/16/23 13:47 Urine Culture - Final Urine,Clean Catch Assessment and Plan (1) UTI (urinary tract infection) Current Visit: Yes Status: Acute Code(s): N39.0 - URINARY TRACT INFECTION, SITE NOT SPECIFIED SNOMED Code(s): 25330157 (2) Leukocytosis Current Visit: Yes Status: Acute Code(s): D72.829 - ELEVATED WHITE BLOOD CELL COUNT, UNSPECIFIED SNOMED Code(s): 911912152 Plan: 1patient is in the hospital with the flank pain nausea and vomiting did have a positive UA likely concerning for symptomatic UTI/pyelonephritis with urine culture growing Sri glabrata likely etiology of her illness, patient did have a chest x-ray was reported negative for acute infiltrate CT abdominal pelvis did show some left lower lobe infiltrate and effusion questionably complex atelectasis clinically not behaving as pneumonia. 2patient did have improvement her white count urine is now growing Enterococcus patient that is sensitive to both vancomycin as well as Macrobid, patient have elevated vancomycin trough vancomycin has been discontinued to decrease risk of nephrotoxicity patient started on Macrobid to continue to follow-up 5 days to finish her course of therapy 3-patient did have some skin lesion on the left upper back area not clinically compatible with shingles if she has any shingles for the last 3 to 4 days we should have seen more extensive distribution in no pattern which I did not see this has been explained to the patient and the I do not see any use for Valtrex which has been discontinued and no worsening rash has been noticed 4patient with the rib cage pain likely atelectasis, with repeat chest x-ray shows evidence of small effusion and atelectasis has been instructed again on incentive spirometry, patient has been offered CT of the chest for better definition of the left lower lobe abnormality however the patient has been refusing mention she cannot go for the CT pain medicine has been consulted will wait for the recommendation 5-patient received adequate antibiotic for UTI with the repeat urine culture negative Macrobid will be discontinued 6patient started on Rocephin with the question of possible her morning see clinical response sputum culture has been requested again Dictation was produced using [employer] dictation software. please excuse any grammatical, word or spelling errors. Time with Patient: Less than 30
[2023-11-18 17:01] LABS: Glucose,Whole Blood 133 mg/dL (70-110)
[2023-11-18 20:46] LABS: Glucose,Whole Blood 208 mg/dL (70-110)
[2023-11-19 02:31] LABS: % Iron Saturation 20.71 (12.00-45.00)
[2023-11-19 06:05] LABS: Glucose,Whole Blood 109 mg/dL (70-110)
[2023-11-19] MEDS: IOPAMIDOL CONTRAST (ORAL USE) VIAL PO PRN (08:37)
[2023-11-19 09:02] LABS: Basophils # (A) 0.1 k/uL (0-0.2); Basophils % (A) 1 %; Eosinophils # (A) 0.6 k/uL (0-0.7); Eosinophils % (A) 6 %; HCT 30.9 % (34.0-46.0); HGB 9.2 gm/dL (11.4-16.0); Hypochromasia Moderate; Lymphocytes # (A) 1.1 k/uL (1.0-4.8); Lymphocytes % (A) 12 %; MCH 29.8 pg (25.0-35.0); MCHC 29.8 g/dL (31.0-37.0); Macrocytosis Slight; Mean Platelet Volume 7.5; Monocytes # (A) 0.5 k/uL (0-1.0); Monocytes % (A) 5 %; Neutrophils # (A) 7.2 k/uL (1.3-7.7); Neutrophils % (A) 76 %; Platelet Count 433 k/uL (150-450); RBC 3.09 m/uL (3.80-5.40); RDW 15.3 % (11.5-15.5); WBC 9.5 k/uL (3.8-10.6)
[2023-11-19 09:23] LABS: ALT 9 U/L (4-34); AST 20 U/L (14-36); African American GFR (CKD) >90 (>60 ml/min/1.73 sqM); Albumin 2.7 g/dL (3.5-5.0); Albumin/Globulin Ratio 0.7; Alkaline Phosphatase 117 U/L (38-126); Anion Gap 4 mmol/L; Blood Urea Nitrogen 15 mg/dL (7-17); Calcium 8.4 mg/dL (8.4-10.2); Carbon Dioxide 34 mmol/L (22-30); Chloride 96 mmol/L (98-107); Glucose 108 mg/dL (74-99); Non-African American GFR(CKD) 82 (>60 ml/min/1.73 sqM); Potassium 3.8 mmol/L (3.5-5.1); Sodium 134 mmol/L (137-145); Total Bilirubin 0.6 mg/dL (0.2-1.3); Total Protein 6.7 g/dL (6.3-8.2)
--- NOTE | 2023-11-19 10:55 | CT ---
EXAMINATION TYPE: CT ChestAbdPelvis w con DATE OF EXAM: 11/19/2023 COMPARISON: Abdomen and pelvis 11/03/2023 HISTORY: 73-year-old female Left chest pain, epigastric pain and leukocytosis TECHNIQUE: Contiguous axial scanning of the chest, abdomen, and pelvis performed with IV Contrast, pa tient injected with 100ml mL of Isovue 300. Delayed images through the kidneys were obtained. Coronal /sagittal reconstructions performed. CT DLP: 1646.7 mGycm Automated exposure control for dose reduction was used. FINDINGS: Chest: Heart upper limits of normal in size without pericardial effusion. Extensive LAD and circumflex coron kev calcifications are present. Aorta normal caliber with mild atherosclerotic calcifications of the mesenteric vessel branching lokesh manuel. Borderline sized lower right paratracheal lymph nodes measuring up to 1 cm. Otherwise, no thoracic ly mphadenopathy by CT size criteria. Borderline caliber main right pulmonary arteries measuring up to 2.6 cm may be seen with pulmonary hy pertension. Septal lines and groundglass persist in the lower lungs. Scattered pulmonary nodules are present on the right measuring up to 1.1 cm. Background mild emphysem a. Increasing small left pleural effusion with adjacent atelectasis. Abdomen: Ronni abnormality along the posterior fundus of the stomach with low-density masslike contour measuri ng 5.0 cm. This appears larger from 11/03/2023 where it measured 4.7 cm and is contiguous with abnorma l subcapsular splenic fluid wrapping around the upper pole of the spleen. This subcapsular collection measures 11.7 mm wide by 2.2 cm x 7.4 cm AP. This extends around the posterior aspect of the spleen and into the splenic parenchyma with a wedgelike configuration measuring 4.4 cm, axial image 49. No focal liver lesion or biliary ductal dilatation. Portal venous system is patent. Gallbladder, adrenal glands, and no gross abnormality. Bilateral renal cortical cysts measuring up to 6.5 cm. Bilateral renal calculi, punctate in the right kidney measuring up to 3 mm. A couple stones measuring up to 6 mm are located within the left lower pole calyceal system and an additional 1 cm stone is present in the left renal pelvis. No hydronephro sis. No dilated small bowel, free fluid, or free air. No mesenteric or retroperitoneal lymphadenopathy. Small caliber normal appendix. Mild to moderate stool burden. Sigmoid diverticulosis. Prominent stool distending the rectum up to 6.5 cm wide. No pericolonic inflammatory change. Pelvis: Bladder partially distended. Uterus surgically absent. Suspect visualization of small bilateral ovari es. No abnormal fluid collection in the pelvis or pelvic lymphadenopathy. Bones: No osseous destructive process. Degenerated levoconvex curvature along the upper to mid lumbar spine IMPRESSION: 1. CORRELATE FOR ANY trauma history. The spleen again demonstrates subcapsular fluid measuring 11.2 x 7.4 cm and 2.2 cm thick. There is an associated splenic laceration measuring 4.4 cm deep. This would correspond to a grade 3 splenic injury in the setting of injury. 2. Given the contiguous rounded contour extending from this area to the posterior wall of the gastric fundus, additional consideration can be that of a large gastric ulcer eroding into the splenic capsu le or a gastric wall mass. No free air or free fluid. Correlate with symptoms. 3. Enlarging small left pleural effusion. Diffuse groundglass and septal changes throughout the lungs may reflect interstitial pulmonary edema. 4. Follow-up after treatment to reassess scattered pulmonary nodules on the right measuring up to 1.1 cm. 5. Bilateral nephrolithiasis. A couple small 6 mm stones are located within the calyceal system of th e left lower pole as well as a larger 1.0 cm stone in the left renal pelvis. No obstructive uropathy.
[2023-11-19 11:50] LABS: Glucose,Whole Blood 135 mg/dL (70-110)
[2023-11-19] MEDS: ANIDULAFUNGIN 100 MG in SODIUM CHLORIDE 0.9% 100 ML IVPB SCH (13:00)
--- NOTE | 2023-11-19 13:18 | P.PN ---
Subjective Progress Note Date: 11/19/23 This is a 73-year-old female patient who presented to the ER with concerns of chest and abdominal pain that she believes is secondary from pneumonia. Patient reports she was recently treated for UTI outpatient reports that she has had increased weakness and shortness of breath over the past week. Patient has a past medical history of CHF, diabetes mellitus, DVT, I disorder, osteoarthritis, obesity and ex-smoker. Chest x-ray completed in ER showing no acute process. CT of abdomen and pelvis completed showing small left lower lobe infiltrate and pleural effusion small amount of free fluid surrounding the spleen stable nonobstructing bilateral renal calcifications. Troponins negative 3. UA show ing positive for urinary tract infection. ProCalcitonin also elevated at 15.8. Patient was started on IV antibiotics Rocephin and Zithromax. Creatinine 0.56 bun 14 BNP elevated 2920. At this time pulmonary cardiology services will be consulted. Sputum culture ordered. Blood culture ordered. Current vital signs temp 98.7, heart rate 86, respiratory rate 17, blood pressure 111/62 with pulse ox of 92% on 3 L On 11/05/2023 patient's alert and oriented 3. Patient reports generalized weakness and pain. Patient remains on IV Rocephin and Zithromax. Patient also started on IV Lasix per cardiology. Patient denies chest pain.Current vital signs temp 98.1, heart rate 11, respiratory rate 16, blood pressure 122/63 with pulse ox 96% on room air. On 11/06/2023 patient was seen and examined on the medical floor she is alert and oriented x 3 in no apparent distress there is no fever or chills no headache or dizziness no chest pain no shortness of breath at rest she has some shortness of breath with activity, no cough no nausea or vomiting no abdominal pain no diarrhea no urinary symptoms. White blood count is coming down gradually, patient remains on IV Rocephin and IV Zithromax, pulmonary critical care, and cardiology are following, echocardiogram revealed severe pulmonary hypertension. On 11/07/2023 for patient's alert and oriented 3.repeat chest x-ray has been ordered. Patient also started on nystatin for thrush. Incentive spirometer ordered. Patient complaining of constipation will order Colace. Patient remains on IV antibiotics. radiology pulmonary service is following On 11/08/2023 Patient is alert and oriented 3. Repeat chest x-ray completed showing patchy perihilar and left basal infiltrate correlate for pneumonia patient remains on azithromycin and IV Rocephin.Current vital signs temp 98.3, heart rate 90, respiratory rate 18, blood pressure for over 63 with pulse ox of 100% on 4 L On 11/09/2023 patient was seen and examined on the medical floor she is alert and oriented x 3 in no apparent distress there is no fever or chills no headache or dizziness no chest pain no shortness of breath at rest she has some shortness of breath with activity, she has occasional cough, no nausea or vomiting, no diarrhea no urinary symptoms. White blood count is coming down gradually, patient remains on IV Rocephin and IV Zithromax, echocardiogram revealed severe pulmonary hypertension. I will ask pulmonary to reevaluate the patient, she is not feeling better, patient has generalized abdominal pain, will check abdominal ultrasound, consultation for infectious disease was initiated. On 12/10/2023 patient was seen and examined on the medical floor she is alert and oriented x 3 in no apparent distress she is complaining of generalized weakness otherwise she denies any complaints there is no fever or chills no headache or dizziness no chest pain no shortness of breath no cough no nausea or vomiting no abdominal pain no diarrhea and no urinary symptoms, her vital exam reveals a temperature of 98.1 pulse 65 respiration 15 blood pressure 110/74 pulse ox 91% on 6 L nasal cannula, white blood count 13.3 hemoglobin 9.5 platelet count 435 BUN 10.6 creatinine 0.5 chest x-ray reveals evidence of pulmonary venous congestion, echocardiogram reveals severe pulmonary hypertension. On 11/11/2023 patient is alert and oriented 3. Patient planning to some nausea this morning Zofran ordered. Patient remains on IV antibiotics.current vital signs temp 97.8, heart rate 89, respiratory rate 15, blood pressure 119/73 with a pulse ox of 93% on 5 L. On 11/12/2023 patient is alert and oriented 3. Patient reports improvement with nausea. Repeat labs pending. Infectious disease services is following patient remains on by mouth antibiotic. Current vital signs temp 97.8, heart rate 68, respiratory rate 15, blood pressure 97/62 with a pulse ox of 94% on 5 L. On 11/13/2023 patient was seen and examined on the medical floor she is complaining of generalized weakness and complaining of back pain, otherwise she denies any complaints at this time, today she developed a rash on the left upper back area compatible with herpes zoster eruption, she will be started on Valtrex 1 g 3 times daily, she will be continued on Vfend and IV vancomycin infectious disease are following, white blood count is coming down, will follow closely On 11/14/2023 patient's alert and oriented 3 complaining of painOn rash area. Patient remains on Valtrex and vancomycin patient reports a generalized weakness. Patient denies chest pain or shortness breath.Current vital signs temp 98.1, heart rate 80, respiratory rate 19, blood pressure 120/78 with pulse ox 94% on 4 L On 11/15/2023 patient is alert and oriented x 3. Patient is complaining of some left-sided pain. Valtrex DC'd per infectious disease. WBC 10.69, hemoglobin 8.4. Current vital signs temp 98.0, heart rate 102, respiratory rate 18, blood pressure 97/68 with a pulse ox of 93% on room air On 11/16/2023 patient was seen and examined on the medical floor she is alert and oriented x 3 in no apparent distress she is complaining mostly of left flank pain otherwise she denies any complaints there is no fever or chills no headache or dizziness no chest pain no shortness of breath no cough no nausea or vomiting no abdominal pain no diarrhea no urinary symptoms. White blood count is up from 10-16, repeat chest x-ray revealed bibasilar infiltrate, at this time consultation again for pulmonary was initiated, blood culture and urine culture were repeated, infectious disease will be notified, also speech therapy was consulted for swallow evaluation to rule out aspiration. Continue with current management otherwise, Dr. English will manage antibiotics. On 11/17/2023 patient was seen and examined on the medical floor she is alert and oriented x 3 in no apparent distress she is still complaining of pain in the left flank area otherwise she denies any complaints at this time patient is reporting severe pain, pain management services were consulted, and a CT scan of the thoracic spine was ordered, otherwise patient is improving gradually, white blood count is down from 16-11 today pulmonary input and infectious disease input reviewed, will follow closely on 11/18/2023atient's alert and oriented 3. CT of thoracic spine completed showing no spinal canal stenosis moderate multilevel degeneration changes no evidence for significant stenosis.pain management has been consulted. Chest x- ray completed showing improved aeration of the left lower lung disease. On 11/19/2023 patient is alert and oriented 3. Patient was now agreeable to CT of abdomen for ongoing abdominal pain, Patient had previously refused. CT of abdomen was completed showing fluid around the spleen and associated splenic laceration measuring 4.4 cm deep. Also showing large gastric ulcer eroding into the splenic capsule or gastric wall mass. Enlarging small left pleural effusion. Diffuse groundglass and septal changes throughout the lungs may reflect interstitial pulmonary edema. With these findings we are recommending transfer to [facility] discussed with patient patient and agreeable at this time. Transferred to [facility] initiated Objective - Vital Signs Vital signs: Vital Signs Temp 97.5 F L 11/19/23 07:07 Pulse 92 11/19/23 07:07 Resp 19 11/19/23 07:07 BP 125/77 11/19/23 07:07 Pulse Ox 91 L 11/19/23 07:07 FiO2 Intake & Output 11/18/23 11/19/23 11/19/23 18:59 06:59 18:59 Output Total 700 800 Balance -700 -800 Weight 113.398 kg Output: Urine 700 800 Other: Voiding Method Incontinent Incontinent External Catheter External Catheter External Catheter # Voids 1 - Exam Head normocephalic Neck supple Lungs clear to auscultation bilaterally no wheezing or crackles Heart regular rate and rhythm S1-S2, no rub or gallop Abdomen is soft nontender nondistended positive bowel sounds no hepatosplenomegaly Extremities no edema Neuro alert and orientated to 3 - Labs CBC & Chem 7: 11/19/23 08:42 11/19/23 08:42 Labs: Abnormal Lab Results - Last 24 Hours (Table) 11/18/23 11/18/23 11/18/23 Range/Units 09:50 17:00 20:44 RBC (3.80-5.40) m/uL Hgb (11.4-16.0) gm/dL Hct (34.0-46.0) % MCHC (31.0-37.0) g/dL Sodium (137-145) mmol/L Chloride (98-107) mmol/L Carbon Dioxide (22-30) mmol/L Glucose (74-99) mg/dL POC Glucose (mg/dL) 133 H 208 H (70-110) mg/dL Iron 35 L (50-170) UG/DL TIBC 169 L (228-460) UG/DL Transferrin 121.0 L (204.0-354.0) mg/dL Albumin (3.5-5.0) g/dL 11/19/23 11/19/23 11/19/23 Range/Units 08:42 08:42 11:48 RBC 3.09 L (3.80-5.40) m/uL Hgb 9.2 L (11.4-16.0) gm/dL Hct 30.9 L (34.0-46.0) % MCHC 29.8 L (31.0-37.0) g/dL Sodium 134 L (137-145) mmol/L Chloride 96 L (98-107) mmol/L Carbon Dioxide 34 H (22-30) mmol/L Glucose 108 H (74-99) mg/dL POC Glucose (mg/dL) 135 H (70-110) mg/dL Iron (50-170) UG/DL TIBC (228-460) UG/DL Transferrin (204.0-354.0) mg/dL Albumin 2.7 L (3.5-5.0) g/dL Microbiology - Last 24 Hours (Table) 11/16/23 11:13 Blood Culture - Preliminary Blood Assessment and Plan Assessment: 1.Chest pain and shortness of breath possibly secondary to acute exacerbation of diastolic congestive heart failure and/or pneumonia 2. Urinary tract infection. Patient did complete outpatient treatment will order urine culture 3. Acute on chronic diastolic congestive heart failure 4. Possible pneumonia seen on computed tomography scan with elevated calcitonin 5. History of coronary artery disease with recent history of PCI to the left circumflex in July 2023 6. History of diabetes mellitus type 2 7. History of hyperlipidemia 8. History of DVT 9. Evidence of severe pulmonary hypertension on echocardiogram 10. History of previous pneumonia secondary to Pseudomonas 11. Oral thrush patient started on nystatin 12. Abnormal CT of abdomen showing splenic laceration and large gastric ulcer eroding into the splenic capsule or gastric wall mass. Recommend transfer to [facility] for further surgical evaluation at this time DVT prophylaxis Lovenox. GI prophylaxis Protonix Infectious disease service is following Sputum urine and blood cultures ordered Repeat labs ordered PT OT service is consulted
--- NOTE | 2023-11-19 14:03 | P.PN ---
Subjective Progress Note Date: 11/19/23 Patient is a 73-year-old white female with past medical history significant for congestive heart failure, kidney stones, coronary artery disease with recent PCI/stenting of the left circumflex artery, diabetes mellitus, DVT, obesity. Patient presented emergency room yesterday evening with multiple complaints. Approximately, 1 week ago she began to noticed right-sided flank pain with radiation to the right upper abdomen. Of note, she states that she was recently treated outpatient for urinary tract infection by her primary care provider, Dr. Angulo, and she completed her antibiotics approximately 1 week ago. She denies any further urinary complaints such as dysuria, urinary frequency, incontinence, hematuria. She does have history of bilateral kidney stones. Also, reports an isolated episode of nausea and vomiting and intermittent diarrhea. A CT of the abdomen and pelvis without contrast demonstrated stable nonobstructing bilateral renal calcifications. Otherwise, unremarkable for intrabdominal process. There was incidentally a small left lower lobe pleural effusion and likely atelectasis versus infiltrate. More recently, she has noticed increased shortness of breath with exertion. She has been generally weak and fatigued. Also, sleeping alot in the chair. She has bilateral lower extremity swelling. Denies any chest pain, heart palpitations, syncopal events. Patient has known chronic diastolic congestive heart failure with preserved left ventricular ejection fraction and secondary pulmonary hypertension. She takes Lasix 40 mg twice a day. She has not missed any doses. Chest x-ray demonstrates cardiomegaly with mild pulmonary vascular congestion and interstitial edema. NT proBNP elevated at 2900. Of note, she was recently hospitalized July, and treated for possible pneumonia. Initially, completed a course of IV cefepime and then ciprofloxacin. She does endorse a intermittent cough with mostly clear sputum, occasionally yellow in color. Denies any fevers, hemoptysis, chest pain. During the same hospitalization mentioned above, she also underwent heart catheterization on 08/06/2023, and received a stent to the mid left circumflex. She states she has been taking all of her medications as directed. CBC: WBC count 14.1, hemoglobin 12.2, hematocrit 38.8, platelets 399. CMP: Sodium 136, potassium 3.7, chloride 104, serum bicarb 28, BUN 14, creatinine 0.56, glucose 93. Lactic acid level 1.4. LFTs unremarkable. EKG shows normal sinus rhythm with nonspecific t wave changes. Troponin less than 0.012 x 2. She is currently in the emergency depa rtment, room 5. She is resting comfortably on the stretcher, on 3 L/min nasal cannula. SpO2 96%. Vital signs are stable. 11/05/2023, the patient continues to have pain in her back.. No fever. No chills. Hemodynamic stable and she remains on liters of oxygen by nasal cannula. The patient remains on IV Rocephin and Zithromax. Blood cultures are still pending for now. They are still negative. The white cell count of 14 with a hemoglobin of 10.7 and a platelet count of 481. Sodium is at 139, BUN is 9 with a creatinine of 0.6 and a potassium level of 3.5. Echocardiogram has been ordered and the results are still pending. Ultrasound of the kidneys and the bladder showed renal cystic changes without any acute abnormalities. The patient is seen today November 10, 2023 in follow-up on the regular medical floor. She is currently awake and alert in no acute distress. Maintaining O2 saturations in the 90s on 6 L high flow nasal cannula. She has been afebrile. Hemodynamically stable. Follow-up chest x-ray reveals cardiomegaly with pulmonary vascular congestion and small pleural effusions. White count 13.3. Hemoglobin 9.5. Platelets 435. Sodium 137. Potassium 4.2. Bicarb 33. BUN 10.6. Creatinine 0.5. Glucose 85. Procalcitonin 0.33. She remains on antibiotics in the form of ceftriaxone. Continued on diuretics. Lovenox for DVT prophylaxis. Currently net -2.4 L balance. Abdominal ultrasound revealed mild hepatosplenomegaly. Nonobstructing superior pole right renal calcification. Simple appearing cyst in the superior pole of the right kidney and smaller simple appearing upper pole left renal cyst. The patient is seen today November 18, 2023 in follow-up on the regular medical floor. She is currently resting comfortably in bed. Maintaining O2 saturations in the 90s on 2 L/min per nasal cannula. Her procalcitonin was 0.3. She does have Enterococcus faecium urinary tract infection. She remains on ceftriaxone and Macrobid per ID service. She has normal saline at KVO. Chest x-ray shows some atelectasis of the left lung base. Improved left lower lobe infiltrate. Blood cultures revealed no growth. She remains afebrile. Hemodynamically stable. White count 11.4. Hemoglobin 9.5. Platelets 394. Sodium 135. Potassium 3.8. Bicarb 34. BUN 15. Creatinine 0.84. Glucose 204. She is continued on bronchodilators as needed. Remains on oral diuretics. Lovenox for DVT prophylaxis. The patient is seen today November 19, 2023 in follow-up on the regular medical floor. She is awake and alert in no acute distress. She is having some issues with abdominal discomfort. She is maintaining O2 saturations in the 90s on 2 L nasal cannula. She denies any worsening shortness of breath, cough or congestion. She is continued on ceftriaxone. Urine culture was positive for Enterococcus faecium and Sri glabrata. Follow-up urine culture revealed no growth. Blood culture revealed no growth. White count 9.5. Hemoglobin 9.2. Platelets 433. Sodium 134. Potassium 3.8. Bicarb 34. BUN 15. Creatinine 0.73. Glucose 108. CT scan of the chest abdomen and pelvis revealed scattered pulmonary met nodules. Background mild emphysema. Increasing small left pleural effusion with adjacent atelectasis. There is evidence of subcapsular fluid around the spleen. Associated splenic laceration measuring 4.4 cm deep. There is additional consideration there is a large gastric ulcer eroding into the splenic capsule or a gastric wall mass. Objective - Vital Signs Vital signs: Vital Signs Temp 97.5 F L 11/19/23 07:07 Pulse 92 11/19/23 07:07 Resp 19 11/19/23 07:07 BP 125/77 11/19/23 07:07 Pulse Ox 91 L 11/19/23 07:07 FiO2 Intake & Output 11/18/23 11/19/23 11/19/23 18:59 06:59 18:59 Output Total 700 800 Balance -700 -800 Weight 113.398 kg Output: Urine 700 800 Other: Voiding Method Incontinent Incontinent External Catheter External Catheter External Catheter # Voids 1 - Labs CBC & Chem 7: 11/19/23 08:42 11/19/23 08:42 Labs: Abnormal Lab Results - Last 24 Hours (Table) 11/18/23 11/18/23 11/18/23 Range/Units 09:50 17:00 20:44 RBC (3.80-5.40) m/uL Hgb (11.4-16.0) gm/dL Hct (34.0-46.0) % MCHC (31.0-37.0) g/dL Sodium (137-145) mmol/L Chloride (98-107) mmol/L Carbon Dioxide (22-30) mmol/L Glucose (74-99) mg/dL POC Glucose (mg/dL) 133 H 208 H (70-110) mg/dL Iron 35 L (50-170) UG/DL TIBC 169 L (228-460) UG/DL Transferrin 121.0 L (204.0-354.0) mg/dL Albumin (3.5-5.0) g/dL 11/19/23 11/19/23 11/19/23 Range/Units 08:42 08:42 11:48 RBC 3.09 L (3.80-5.40) m/uL Hgb 9.2 L (11.4-16.0) gm/dL Hct 30.9 L (34.0-46.0) % MCHC 29.8 L (31.0-37.0) g/dL Sodium 134 L (137-145) mmol/L Chloride 96 L (98-107) mmol/L Carbon Dioxide 34 H (22-30) mmol/L Glucose 108 H (74-99) mg/dL POC Glucose (mg/dL) 135 H (70-110) mg/dL Iron (50-170) UG/DL TIBC (228-460) UG/DL Transferrin (204.0-354.0) mg/dL Albumin 2.7 L (3.5-5.0) g/dL Microbiology - Last 24 Hours (Table) 11/16/23 11:13 Blood Culture - Preliminary Blood Assessment and Plan Assessment: Urinary tract infection secondary to Enterococcus faecium. Procalcitonin level is considerably elevated at 15 initially, currently down to 0.30. Treated with Rocephin and Macrobid. Follow-up urine culture revealed no growth. Acute hypoxemic respiratory failure, likely secondary to mild exacerbation of diastolic congestive heart failure. Chest x-ray demonstrates cardiomegaly with mild pulmonary vascular congestion and interstitial edema. NT proBNP elevated at 2900. Abdominal CT demonstrated incidental small left lower lobe pleural effusion and possible atelectasis. Pneumonia and parapneumonic effusion felt less likely. Echocardiogram revealed preserved left ventricular systolic function. There is severe pulmonary hypertension with an RVSP of 74 mmHg. Follow-up chest x-ray reveals improved aeration of the left lung base. Right flank pain, with history of bilateral kidney stones. CT of the abdomen and pelvis without contrast demonstrated stable nonobstructing bilateral renal calcifications. Unremarkable for acute intra-abdominal process. CT scan of the chest abdomen and pelvis revealed scattered pulmonary met nodules. Background mild emphysema. Increasing small left pleural effusion with adjacent atelectasis. There is evidence of subcapsular fluid around the spleen. Associated splenic laceration measuring 4.4 cm deep. There is additional consideration there is a large gastric ulcer eroding into the splenic capsule or a gastric wall mass. Recent outpatient treatment for urinary tract infection, reportedly completed entire course of antibiotics Coronary artery disease with recent history of PCI/stenting of the left circumflex artery on 08/06/2023 Chronic diastolic heart failure, patient is known to have a preserved left ventricular ejection fraction, severe pulmonary hypertension, and moderate to severe tricuspid regurgitation Diabetes mellitus type 2 History of hyperlipidemia History of DVT History of pneumonia, secondary to Pseudomonas Morbid obesity, with a BMI of 40.4 kg/m Plan: The patient was seen and evaluated CT scan chest, abdomen and pelvis, labs and medications reviewed The patient is being considered for transfer based on CT findings The patient's was quite rude and rolling his eyes and sighing at us throughout the assessment We will see the patient on an as-needed basis, stable from the pulmonary standpoint I have personally seen and examined the patient, performed the documentation and the assessment and plan as written. Number of minutes spent on the visit: 10.
[2023-11-19 16:29] LABS: Glucose,Whole Blood 116 mg/dL (70-110)
[2023-11-19] MEDS: metroNIDAZOLE-NS PMX 500 MG in SALINE 1 100ML.BAG IVPB SCH (17:06)
[2023-11-19] MEDS: CEFEPIME 2 GM in SODIUM CHLORIDE 0.9% 100 ML IVPB SCH (18:10)
[2023-11-19 20:59] LABS: Glucose,Whole Blood 102 mg/dL (70-110)
[2023-11-20 06:16] LABS: Glucose,Whole Blood 92 mg/dL (70-110)
--- NOTE | 2023-11-20 07:17 | P.PN ---
Subjective Progress Note Date: 11/19/23 Principal diagnosis: Reason for follow-up is urinary tract infection Patient is a 73-year-old female with a past medical history significant for diabetes mellitus DVT osteoarthritis heart failure pneumonia and UTI presenting to the hospital for evaluation of right-sided flank pain and abdominal area patient did have a positive UA elevated white count urine culture with Sri glabrata prompted this consultation on today's evaluation that is 11/19/2023, Patient is afebrile this morning and denies any chills, patient mention breathing comfortably and is currently on 4 L nasal cannula oxygen, patient has been complaining of mostly left lower rib cage/abdominal pain nausea but no vomiting no diarrhea. Patient white count normal at 9.5 creatinine 0.[address] of the chest abdominal pelvis completed concerning for perforated peptic ulcer with sp lenic laceration Objective - Vital Signs Vital signs: Vital Signs Temp 97.5 F L 11/19/23 07:07 Pulse 92 11/19/23 07:07 Resp 19 11/19/23 07:07 BP 125/77 11/19/23 07:07 Pulse Ox 91 L 11/19/23 07:07 FiO2 Intake & Output 11/18/23 11/19/23 11/19/23 18:59 06:59 18:59 Output Total 700 800 Balance -700 -800 Weight 113.398 kg Output: Urine 700 800 Other: Voiding Method Incontinent Incontinent External Catheter External Catheter # Voids 1 - Exam GENERAL DESCRIPTION: An elderly female lying in bed in no distress RESPIRATORY SYSTEM: Unlabored breathing , decreased breath sounds at bases HEART: S1 S2 regular rate and rhythm , ABDOMEN: Soft , no tenderness EXTREMITIES: No edema feet SKIN: Right side upper back did have some skin tear, does not look vesicles if she did have shingles which would have seen more extensive rash in lateral distribution - Labs CBC & Chem 7: 11/19/23 08:42 11/19/23 08:42 Labs: Abnormal Lab Results - Last 24 Hours (Table) 11/18/23 11/18/23 11/18/23 Range/Units 09:50 11:40 17:00 RBC (3.80-5.40) m/uL Hgb (11.4-16.0) gm/dL Hct (34.0-46.0) % MCHC (31.0-37.0) g/dL Sodium (137-145) mmol/L Chloride (98-107) mmol/L Carbon Dioxide (22-30) mmol/L Glucose (74-99) mg/dL POC Glucose (mg/dL) 168 H 133 H (70-110) mg/dL Iron 35 L (50-170) UG/DL TIBC 169 L (228-460) UG/DL Transferrin 121.0 L (204.0-354.0) mg/dL Albumin (3.5-5.0) g/dL 11/18/23 11/19/23 11/19/23 Range/Units 20:44 08:42 08:42 RBC 3.09 L (3.80-5.40) m/uL Hgb 9.2 L (11.4-16.0) gm/dL Hct 30.9 L (34.0-46.0) % MCHC 29.8 L (31.0-37.0) g/dL Sodium 134 L (137-145) mmol/L Chloride 96 L (98-107) mmol/L Carbon Dioxide 34 H (22-30) mmol/L Glucose 108 H (74-99) mg/dL POC Glucose (mg/dL) 208 H (70-110) mg/dL Iron (50-170) UG/DL TIBC (228-460) UG/DL Transferrin (204.0-354.0) mg/dL Albumin 2.7 L (3.5-5.0) g/dL Microbiology - Last 24 Hours (Table) 11/16/23 11:13 Blood Culture - Preliminary Blood Assessment and Plan (1) UTI (urinary tract infection) Current Visit: Yes Status: Acute Code(s): N39.0 - URINARY TRACT INFECTION, SITE NOT SPECIFIED SNOMED Code(s): 59131191 (2) Leukocytosis Current Visit: Yes Status: Acute Code(s): D72.829 - ELEVATED WHITE BLOOD CELL COUNT, UNSPECIFIED SNOMED Code(s): 229763641 Plan: 1patient with left lower rib cage pain for which the patient has previously refused CT abdominal pelvis over the last [address] abdominal pelvis on admission did not show any intra-abdominal pathology there was concern for some left sided effusion atelectasis however no significant changes has been noticed on the CT abdominal pelvis this morning this has been discussed with admitting physician as well as with the patient and the patient is currently being considered for transfer to [facility] for surgical evaluation I will broaden her antibiotic coverage to cefepime Flagyl and Eraxis with concern for perforated peptic ulcer and peritonitis and possibility of splenic injury and patient has multiple questions and concerns those has been answered in layman terms Dictation was produced using [employer] dictation software. please excuse any grammatical, word or spelling errors. Time with Patient: Greater than 30
[2023-11-20] MEDS: MAGNESIUM HYDROXIDE 2,400 MG/30 ML CUP PO PRN (09:23)
[2023-11-20 11:30] LABS: Glucose,Whole Blood 169 mg/dL (70-110)
[2023-11-20] MEDS: bisacodyL 10 MG SUPP RECTAL STA (15:07)
[2023-11-20] MEDS: LACTULOSE 20 GM/30 ML CUP PO SCH (15:07)
--- NOTE | 2023-11-20 16:24 | P.PN ---
Subjective Progress Note Date: 11/20/23 Principal diagnosis: Reason for follow-up is urinary tract infection Patient is a 73-year-old female with a past medical history significant for diabetes mellitus DVT osteoarthritis heart failure pneumonia and UTI presenting to the hospital for evaluation of right-sided flank pain and abdominal area patient did have a positive UA elevated white count urine culture with Sri glabrata prompted this consultation on today's evaluation that is 11/19/2023, Patient is afebrile this morning and denies any chills, patient mention breathing comfortably and is currently on 4 L nasal cannula oxygen patient has been complaining of mostly constipation unable to have a bowel movement and discomfort associated with this no vomiting or any other changes reported as also seem to be slightly absent for as currently waiting for transfer to [facility]. No new labs has been obtained today COVID testing was negative Objective - Vital Signs Vital signs: Vital Signs Temp 97.6 F 11/20/23 07:45 Pulse 94 11/20/23 07:45 Resp 16 11/20/23 07:45 BP 131/82 11/20/23 07:45 Pulse Ox 96 11/20/23 07:45 FiO2 Intake & Output 11/19/23 11/20/23 11/20/23 18:59 06:59 18:59 Output Total 950 Balance -950 Output: Urine 950 Other: Voiding Method External Catheter External Catheter Diaper External Catheter # Voids 5 - Labs CBC & Chem 7: 11/19/23 08:42 11/19/23 08:42 Labs: Abnormal Lab Results - Last 24 Hours (Table) 11/19/23 11/20/23 Range/Units 16:28 11:28 POC Glucose (mg/dL) 116 H 169 H (70-110) mg/dL Microbiology - Last 24 Hours (Table) 11/16/23 11:13 Blood Culture - Preliminary Blood Assessment and Plan (1) UTI (urinary tract infection) Current Visit: Yes Status: Acute Code(s): N39.0 - URINARY TRACT INFECTION, SITE NOT SPECIFIED SNOMED Code(s): 13307499 (2) Leukocytosis Current Visit: Yes Status: Acute Code(s): D72.829 - ELEVATED WHITE BLOOD CELL COUNT, UNSPECIFIED SNOMED Code(s): 078257165 Plan: 1patient with left lower rib cage pain for which the patient has previously refused CT abdominal pelvis over the last [address] abdominal pelvis on admission did not show any intra-abdominal pathology there was concern for some left sided effusion atelectasis however no significant changes has been noticed on the CT abdominal pelvis this morning this has been discussed with admitting physician as well as with the patient and the patient is currently waiting for transfer to [facility] for surgical evaluation patient is covered with cefepime Flagyl and Eraxis with concern for perforated peptic ulcer and peritonitis and possibility of splenic injury 2-patient with constipation has received milk of magnesia as well as laxative with no response nursing staff is advised to give the patient suppository x 1 Dictation was produced using [employer] dictation software. please excuse any grammatical, word or spelling errors. Time with Patient: Less than 30
[2023-11-20 17:02] LABS: Glucose,Whole Blood 144 mg/dL (70-110)
[2023-11-20] MEDS: ZINC OXIDE PASTE (Z-GUARD) 1 APPLIC TOPICAL PRN (17:58)
[2023-11-20 20:39] LABS: Glucose,Whole Blood 200 mg/dL (70-110)
[2023-11-21 05:45] LABS: Glucose,Whole Blood 106 mg/dL (70-110)
--- NOTE | 2023-11-21 06:49 | P.PN ---
Subjective Progress Note Date: 11/20/23 This is a 73-year-old female patient who presented to the ER with concerns of chest and abdominal pain that she believes is secondary from pneumonia. Patient reports she was recently treated for UTI outpatient reports that she has had increased weakness and shortness of breath over the past week. Patient has a past medical history of CHF, diabetes mellitus, DVT, I disorder, osteoarthritis, obesity and ex-smoker. Chest x-ray completed in ER showing no acute process. CT of abdomen and pelvis completed showing small left lower lobe infiltrate and pleural effusion small amount of free fluid surrounding the spleen stable nonobstructing bilateral renal calcifications. Troponins negative 3. UA sh owing positive for urinary tract infection. ProCalcitonin also elevated at 15.8. Patient was started on IV antibiotics Rocephin and Zithromax. Creatinine 0.56 bun 14 BNP elevated 2920. At this time pulmonary cardiology services will be consulted. Sputum culture ordered. Blood culture ordered. Current vital signs temp 98.7, heart rate 86, respiratory rate 17, blood pressure 111/62 with pulse ox of 92% on 3 L On 11/05/2023 patient's alert and oriented 3. Patient reports generalized weakness and pain. Patient remains on IV Rocephin and Zithromax. Patient also started on IV Lasix per cardiology. Patient denies chest pain.Current vital signs temp 98.1, heart rate 11, respiratory rate 16, blood pressure 122/63 with pulse ox 96% on room air. On 11/06/2023 patient was seen and examined on the medical floor she is alert and oriented x 3 in no apparent distress there is no fever or chills no headache or dizziness no chest pain no shortness of breath at rest she has some shortness of breath with activity, no cough no nausea or vomiting no abdominal pain no diarrhea no urinary symptoms. White blood count is coming down gradually, patient remains on IV Rocephin and IV Zithromax, pulmonary critical care, and cardiology are following, echocardiogram revealed severe pulmonary hypertension. On 11/07/2023 for patient's alert and oriented 3.repeat chest x-ray has been ordered. Patient also started on nystatin for thrush. Incentive spirometer ordered. Patient complaining of constipation will order Colace. Patient remains on IV antibiotics. radiology pulmonary service is following On 11/08/2023 Patient is alert and oriented 3. Repeat chest x-ray completed showing patchy perihilar and left basal infiltrate correlate for pneumonia patient remains on azithromycin and IV Rocephin.Current vital signs temp 98.3, heart rate 90, respiratory rate 18, blood pressure for over 63 with pulse ox of 100% on 4 L On 11/09/2023 patient was seen and examined on the medical floor she is alert and oriented x 3 in no apparent distress there is no fever or chills no headache or dizziness no chest pain no shortness of breath at rest she has some shortness of breath with activity, she has occasional cough, no nausea or vomiting, no diarrhea no urinary symptoms. White blood count is coming down gradually, patient remains on IV Rocephin and IV Zithromax, echocardiogram revealed severe pulmonary hypertension. I will ask pulmonary to reevaluate the patient, she is not feeling better, patient has generalized abdominal pain, will check abdominal ultrasound, consultation for infectious disease was initiated. On 12/10/2023 patient was seen and examined on the medical floor she is alert and oriented x 3 in no apparent distress she is complaining of generalized weakness otherwise she denies any complaints there is no fever or chills no headache or dizziness no chest pain no shortness of breath no cough no nausea or vomiting no abdominal pain no diarrhea and no urinary symptoms, her vital exam reveals a temperature of 98.1 pulse 65 respiration 15 blood pressure 110/74 pulse ox 91% on 6 L nasal cannula, white blood count 13.3 hemoglobin 9.5 platelet count 435 BUN 10.6 creatinine 0.5 chest x-ray reveals evidence of pulmonary venous congestion, echocardiogram reveals severe pulmonary hypertension. On 11/11/2023 patient is alert and oriented 3. Patient planning to some nausea this morning Zofran ordered. Patient remains on IV antibiotics.current vital signs temp 97.8, heart rate 89, respiratory rate 15, blood pressure 119/73 with a pulse ox of 93% on 5 L. On 11/12/2023 patient is alert and oriented 3. Patient reports improvement with nausea. Repeat labs pending. Infectious disease services is following patient remains on by mouth antibiotic. Current vital signs temp 97.8, heart rate 68, respiratory rate 15, blood pressure 97/62 with a pulse ox of 94% on 5 L. On 11/13/2023 patient was seen and examined on the medical floor she is complaining of generalized weakness and complaining of back pain, otherwise she denies any complaints at this time, today she developed a rash on the left upper back area compatible with herpes zoster eruption, she will be started on Valtrex 1 g 3 times daily, she will be continued on Vfend and IV vancomycin infectious disease are following, white blood count is coming down, will follow closely On 11/14/2023 patient's alert and oriented 3 complaining of painOn rash area. Patient remains on Valtrex and vancomycin patient reports a generalized weakness. Patient denies chest pain or shortness breath.Current vital signs temp 98.1, heart rate 80, respiratory rate 19, blood pressure 120/78 with pulse ox 94% on 4 L On 11/15/2023 patient is alert and oriented x 3. Patient is complaining of some left-sided pain. Valtrex DC'd per infectious disease. WBC 10.69, hemoglobin 8.4. Current vital signs temp 98.0, heart rate 102, respiratory rate 18, blood pressure 97/68 with a pulse ox of 93% on room air On 11/16/2023 patient was seen and examined on the medical floor she is alert and oriented x 3 in no apparent distress she is complaining mostly of left flank pain otherwise she denies any complaints there is no fever or chills no headache or dizziness no chest pain no shortness of breath no cough no nausea or vomiting no abdominal pain no diarrhea no urinary symptoms. White blood count is up from 10-16, repeat chest x-ray revealed bibasilar infiltrate, at this time consultation again for pulmonary was initiated, blood culture and urine culture were repeated, infectious disease will be notified, also speech therapy was consulted for swallow evaluation to rule out aspiration. Continue with current management otherwise, Dr. English will manage antibiotics. On 11/17/2023 patient was seen and examined on the medical floor she is alert and oriented x 3 in no apparent distress she is still complaining of pain in the left flank area otherwise she denies any complaints at this time patient is reporting severe pain, pain management services were consulted, and a CT scan of the thoracic spine was ordered, otherwise patient is improving gradually, white blood count is down from 16-11 today pulmonary input and infectious disease input reviewed, will follow closely on 11/18/2023atient's alert and oriented 3. CT of thoracic spine completed showing no spinal canal stenosis moderate multilevel degeneration changes no evidence for significant stenosis.pain management has been consulted. Chest x- ray completed showing improved aeration of the left lower lung disease. On 11/19/2023 patient is alert and oriented 3. Patient was now agreeable to CT of abdomen for ongoing abdominal pain, Patient had previously refused. CT of abdomen was completed showing fluid around the spleen and associated splenic laceration measuring 4.4 cm deep. Also showing large gastric ulcer eroding into the splenic capsule or gastric wall mass. Enlarging small left pleural effusion. Diffuse groundglass and septal changes throughout the lungs may reflect interstitial pulmonary edema. With these findings we are recommending transfer to [facility] discussed with patient patient and agreeable at this time. Transferred to [facility] initiated 11/20/[address] Angulo Patient is seen and evaluated in follow-up this morning with at the bedside. Patient was agreeable to the CT abdomen which showed splenic laceration along with a large gastric ulcer that was read as eroding into the splenic capsule or gastric wall mass and has been accepted at [facility] for surgical evaluation currently awaiting a bed. Contacted [facility] transfer team and continues to have no bed available. Updated report provided. Vital signs are stable. Patient reports mild abdominal pain although stable when not moving around. Patient also reports has not had a bowel movement and will give a laxative along with suppository. Patient is afebrile with no reports of chest pain or worsening shortness of breath. Review of systems: Constitutional: No reports of fatigue, fever, or chills Cardiovascular: No reports of chest pain or palpitations Respiratory: No reports of shortness of breath or cough GI: No reports of nausea, vomiting, or diarrhea, reporting constipation and has not had a bowel movement in a few days : No reports of dysuria or retention Neurovascular: reports of generalized weakness All medications have been reviewed Physical exam: Gen: This is a 73-year-old female who is awake, alert and oriented x 3, well- developed, elderly appearing, morbidly obese HEENT: Head is atraumatic, normocephalic. Pupils equal, round. Sclerae is anicteric. NECK: Supple. No JVD. No lymphadenopathy. No thyromegaly. LUNGS: Diminished breath sounds bilaterally otherwise clear to auscultation. No wheezes or rhonchi. No intercostal retractions. HEART: S1, S2 are muffled ABDOMEN: Soft. Obese bowel sounds are present. No masses. Mild tenderness noted on palpation on the left. EXTREMITIES: No pedal edema. No calf tenderness. NEUROLOGICAL: Patient is awake, alert and oriented x3. Cranial nerves 2 through 12 are grossly intact. Diffusely weak Assessment: 1.Chest pain and shortness of breath likely secondary to acute exacerbation of diastolic congestive heart failure 2. Urinary tract infection present on admission with failure of outpatient treatment. 3. Acute on chronic diastolic congestive heart failure 4. Possible pneumonia seen on computed tomography scan with elevated calcitonin, ruled out by pulmonary 5. History of coronary artery disease with recent history of PCI to the left circumflex in July 2023 6. History of diabetes mellitus type 2 7. History of hyperlipidemia 8. History of DVT 9. Evidence of severe pulmonary hypertension on echocardiogram 10. History of previous pneumonia secondary to Pseudomonas 11. Oral thrush patient started on nystatin 12. Abnormal CT of abdomen showing splenic laceration and large gastric ulcer e roding into the splenic capsule or gastric wall mass. Recommend transfer to [facility] for further surgical evaluation at this time 13. Morbid obesity with a BMI of 40.4 GI prophylaxis DVT prophylaxis Full code Plan: Continue with current medications with infectious disease following. Patient continued on antibiotic therapy Patient underwent CT of the abdomen as patient was initially refusing. CT showed a splenic laceration and a large gastric ulcer eroding into the splenic capsule or a gastric wall mass. Recommending transfer to [facility] for tertiary treatment and patient has been accepted currently awaiting a bed. [employer] Member contacted transfer team and no bed remains available and is discharge dependent. Will follow-up with the transfer team again. Transfer team also re ported they will notify the unit once a bed is available. Patient reporting feeling some constipation and has not had a bowel movement in a few days. Will add a suppository along with lactulose due to multiple complex medical issues, overall prognosis is guarded The impression and plan of care has been dictated by Lisette Alegria, Nurse Practitioner as directed. Dr. Gordon MD I have performed a history and examination and MDM of this patient, discussed the same with the dictator, and agree with the dictator's assessment and plan as written ,documented as a scribe. Based on total visit time, I have performed more than 50% of the visit. Gordon Objective - Vital Signs Vital signs: Vital Signs Temp 97.6 F 11/20/23 07:45 Pulse 94 11/20/23 07:45 Resp 16 11/20/23 07:45 BP 131/82 11/20/23 07:45 Pulse Ox 96 11/20/23 07:45 FiO2 Intake & Output 11/19/23 11/20/23 11/20/23 18:59 06:59 18:59 Output Total 950 Balance -950 Output: Urine 950 Other: Voiding Method External Catheter External Catheter Diaper External Catheter # Voids 5 - Labs CBC & Chem 7: 11/19/23 08:42 11/19/23 08:42 Labs: Abnormal Lab Results - Last 24 Hours (Table) 11/19/23 11/20/23 Range/Units 16:28 11:28 POC Glucose (mg/dL) 116 H 169 H (70-110) mg/dL Microbiology - Last 24 Hours (Table) 11/16/23 11:13 Blood Culture - Preliminary Blood
[2023-11-21 10:31] LABS: Basophils # (A) 0.07 X 10*3/uL (0.00-0.10); Basophils % (A) 0.8 %; Eosinophils # (A) 0.57 X 10*3/uL (0.04-0.35); Eosinophils % (A) 6.3 %; HCT 29.3 % (37.2-46.3); HGB 8.4 g/dL (12.0-15.0); Lymphocytes # (A) 1.23 X 10*3/uL (0.90-5.00); Lymphocytes % (A) 13.6 %; MCH 29.9 pg (27.0-32.0); MCHC 28.7 g/dL (32.0-37.0); MCV 104.3 FL (80.0-97.0); Mean Platelet Volume 10.1 FL (9.5-12.2); Monocytes # (A) 0.66 X 10*3/uL (0.20-1.00); Monocytes % (A) 7.3 %; NRBC Per 100 WBC 0 X 10*3/uL (0.00-0.01); Neutrophils # (A) 6.45 X 10*3/uL (1.80-7.70); Neutrophils % (A) 71.1 %; Platelet Count 381 X 10*3/uL (140-440); RBC 2.81 X 10*6/uL (4.10-5.20); RDW 15.4 % (11.5-14.5); WBC 9.06 X 10*3/uL (4.50-10.00)
[2023-11-21 10:47] LABS: ALT 7 U/L (8-44); AST 16 U/L (13-35); Albumin 2.5 g/dL (3.8-4.9); Albumin/Globulin Ratio 0.62 Ratio (1.60-3.17); Alkaline Phosphatase 83 U/L (41-126); BUN/Creat Ratio 15.56 Ratio (12.00-20.00); Calcium 8.4 mg/dL (8.7-10.3); Carbon Dioxide 28.5 mmol/L (21.6-31.8); Chloride 100 mmol/L (96-109); Glucose 96 mg/dL (70-110); Magnesium 2.5 mg/dL (1.5-2.4); Potassium 3.5 mmol/L (3.5-5.5); Sodium 139 mmol/L (135-145); Total Bilirubin 0.3 mg/dL (0.3-1.2); Total Protein 6.5 g/dL (6.2-8.2)
[2023-11-21 11:48] LABS: Glucose,Whole Blood 169 mg/dL (70-110)
--- NOTE | 2023-11-21 15:22 | P.DS ---
Providers Date of admission: 11/05/23 09:55 Expected date of discharge: 11/21/23 Attending physician: Pat Angulo Consults: 11/04/23 10:33 Consult Physician Routine Consulting Provider: Angel Orellana Consult Reason/Comments: acute on chronic CHF Do you want consulting provider notified?: Yes 11/04/23 10:39 Consult Physician Routine Consulting Provider: Mónica Longoria Consult Reason/Comments: pneumonia, elevated procaltinion Do you want consulting provider notified?: Yes 11/08/23 10:04 Consult Physician Routine Consulting Provider: Mónica Longoria Consult Reason/Comments: pneumonia Do you want consulting provider notified?: Yes 11/09/23 11:41 Consult Physician Routine Consulting Provider: Ramandeep English Consult Reason/Comments: UTI, pneumonia Do you want consulting provider notified?: Yes 11/09/23 12:22 Consult Physician Routine Consulting Provider: Mónica Longoria Consult Reason/Comments: follow up pneumonia Do you want consulting provider notified?: Yes 11/15/23 14:33 Consult Physician Routine Consulting Provider: Lakisha Win Consult Reason/Comments: severe back pain Do you want consulting provider notified?: Yes 11/16/23 13:29 Consult Physician Routine Consulting Provider: Viktor Rueda Consult Reason/Comments: possible pneumonia Do you want consulting provider notified?: Yes Primary care physician: Patkaren Angulo [facility] Course: Final diagnosis 1.Chest pain and shortness of breath likely secondary to acute exacerbation of diastolic congestive heart failure 2. Urinary tract infection present on admission with failure of outpatient treatment. 3. Acute on chronic diastolic congestive heart failure 4. Possible pneumonia seen on computed tomography scan with elevated calcitonin, ruled out by pulmonary 5. History of coronary artery disease with recent history of PCI to the left circumflex in July 2023 6. History of diabetes mellitus type 2 7. History of hyperlipidemia 8. History of DVT 9. Evidence of severe pulmonary hypertension on echocardiogram 10. History of previous pneumonia secondary to Pseudomonas 11. Oral thrush patient started on nystatin 12. Abnormal CT of abdomen showing splenic laceration and large gastric ulcer eroding into the splenic capsule or gastric wall mass. Recommend transfer to [facility] for further surgical evaluation at this time 13. Morbid obesity with a BMI of 40.4 GI prophylaxis DVT prophylaxis Full code Discharge disposition Patient is being transferred in a stable condition with guarded prognosis to [facility] in [place] and has not been accepted by Dr. Boston. Patient will follow-up with Dr. Angulo in the outpatient setting upon discharge. Patient is to continue with current medications including anidulafungin, cefepime, Flagyl. Patient is going down for further surgical evaluation for splenic laceration with concerns of eroding ulceration. Total time taken is greater than 35 minutes. Hospital course This is a 73-year-old female who was recently admitted with abdominal pain with increased shortness of breath and lower extremity swelling with concerns of CHF exacerbation also noted to have a UTI being continued on antibiotics with infectious disease following. Urine culture finalized Enterococcus faecium and repeat culture is normal along with Sri and patient is maintained on an antifungal and along with antibiotics. Patient continued to have increased abdominal pain in the left and right lower quadrants and initially reluctant to receive a CT of the abdomen although agreeable as patient continued to report severe pain and CT was noted to have concerns for an associated splenic laceration measuring 4.4 cm deep corresponding with a grade 3 splenic injury in the setting of injury. Patient denies any current injuries although reports approximately 4 to 5 months ago did have a fall for generalized weakness. There is also a concern for a large gastric ulcer that is eroding into the splenic capsule or a gastric wall mass and there is no free air or free fluid noted within enlarging pleural effusion and interstitial pulmonary edema. Patient has been maintained on diuresis and has been transition to oral diuretics that she chronically takes. Given these continued symptoms and abdominal pain multiple consultations following including infectious disease recommending transfer to tertiary treatment center. Patient has been accepted by Dr. Boston at [facility] and has received a bed. Nurse to nurse report being conducted and EMS will be set up for transportation. Patient and family are agreeable to the transfer. Currently no reports of chest pain, shortness of breath, or palpitations. Patient is afebrile. reports of nausea, one-time vomiting and patient is tolerating diet. Patient was constipated although did receive bowel regimen and had a large bowel movement x 2 yesterday and today. Patient will be transferred to [facility] today. Guarded prognosis Physical exam: Gen: This is a 73-year-old female who is awake, alert and oriented x 3, well- developed, elderly appearing, morbidly obese HEENT: Head is atraumatic, normocephalic. Pupils equal, round. Sclerae is anicteric. NECK: Supple. No JVD. No lymphadenopathy. No thyromegaly. LUNGS: Diminished breath sounds bilaterally otherwise clear to auscultation. No wheezes or rhonchi. No intercostal retractions. HEART: S1, S2 are muffled ABDOMEN: Soft. Obese bowel sounds are present. No masses. Left and right lower quadrant tenderness on palpation. EXTREMITIES: No pedal edema. No calf tenderness. Generalized edema noted NEUROLOGICAL: Patient is awake, alert and oriented x3. Cranial nerves 2 through 12 are grossly intact. Diffusely weak Please refer to medication reconciliation sheet for a list of medications. The impression and plan of care has been dictated by Lisette Alegria, Nurse Practitioner as directed. Dr. Gordon MD I have performed a history and examination and MDM of this patient, discussed the same with the dictator, and agree with the dictator's assessment and plan as written ,documented as a scribe. Based on total visit time, I have performed more than 50% of the visit. Patient Condition at Discharge: Fair Plan - Discharge Summary Discharge Rx Participant: No New Discharge Prescriptions: No Action metFORMIN HCL [Glucophage] 500 mg PO BID Aspirin EC [Ecotrin Low Dose] 81 mg PO DAILY Acetaminophen [Tylenol 8 Hour] 1,300 mg PO Q8H Cholecalciferol [Vitamin D3 (25 Mcg = 1000 Iu)] 100 mcg PO DAILY Montelukast [Singulair] 10 mg PO HS Clopidogrel [Plavix] 75 mg PO DAILY 30 Days #30 tab Cyanocobalamin [Vitamin B-12] 1,000 mcg PO DAILY 90 Days #90 tab Pantoprazole [Protonix] 40 mg PO DAILY Multivit-Min/FA/Lycopen/Lutein [Centrum Silver Tablet] 1 tab PO DAILY Dapagliflozin Propanediol [Farxiga] 10 mg PO DAILY tab Atorvastatin [Lipitor] 20 mg PO DAILY tab Metoprolol Tartrate [Lopressor] 25 mg PO BID oxyBUTYnin chloride [Ditropan] 5 mg PO BID Ferrous Sulfate [Feosol] 325 mg PO DAILY 30 Days #30 tab Furosemide [Lasix] 40 mg PO BID@0900,1600 Discharge Medication List Acetaminophen [Tylenol 8 Hour] 1,300 mg PO Q8H 12/01/18 [History] Aspirin EC [Ecotrin Low Dose] 81 mg PO DAILY 12/01/18 [History] metFORMIN HCL [Glucophage] 500 mg PO BID 12/01/18 [History] Cholecalciferol [Vitamin D3 (25 Mcg = 1000 Iu)] 100 mcg PO DAILY 04/24/23 [History] Atorvastatin [Lipitor] 20 mg PO DAILY tab 05/13/23 [Rx] Dapagliflozin Propanediol [Farxiga] 10 mg PO DAILY tab 05/13/23 [Rx] Metoprolol Tartrate [Lopressor] 25 mg PO BID 08/05/23 [History] Montelukast [Singulair] 10 mg PO HS 08/05/23 [History] oxyBUTYnin chloride [Ditropan] 5 mg PO BID 08/05/23 [History] Clopidogrel [Plavix] 75 mg PO DAILY 30 Days #30 tab 08/14/23 [Rx] Cyanocobalamin [Vitamin B-12] 1,000 mcg PO DAILY 90 Days #90 tab 08/14/23 [Rx] Ferrous Sulfate [Feosol] 325 mg PO DAILY 30 Days #30 tab 08/14/23 [Rx] Furosemide [Lasix] 40 mg PO BID@0900,1600 11/03/23 [History] Multivit-Min/FA/Lycopen/Lutein [Centrum Silver Tablet] 1 tab PO DAILY 11/03/23 [History] Pantoprazole [Protonix] 40 mg PO DAILY 11/03/23 [History] Follow up Appointment(s)/Referral(s): Malik Carrasquillo MD [STAFF PHYSICIAN] - 1 Week Pat Angulo MD [Primary Care Provider] - 1-2 days
[2023-11-21 15:59] VITALS: PULSE 97; RESP 16; TEMP 97.3
--- NOTE | 2023-11-21 16:24 | P.PN ---
Subjective Progress Note Date: 11/21/23 Principal diagnosis: Reason for follow-up is urinary tract infection Patient is a 73-year-old female with a past medical history significant for diabetes mellitus DVT osteoarthritis heart failure pneumonia and UTI presenting to the hospital for evaluation of right-sided flank pain and abdominal area patient did have a positive UA elevated white count urine culture with Sri glabrata prompted this consultation on today's evaluation that is 11/21/2023,the patient remains to be afebrile, patient is on 4 L nasal cannula supplemental oxygen no vomiting diarrhea or worsening pain reported. Patient white count 9.06, creatinine 0.9 Objective - Vital Signs Vital signs: Vital Signs Temp 98 F 11/21/23 07:21 Pulse 46 L 11/21/23 07:21 Resp 15 11/21/23 07:21 BP 117/70 11/21/23 07:21 Pulse Ox 95 11/21/23 07:21 FiO2 Intake & Output 11/20/23 11/21/23 11/21/23 18:59 06:59 18:59 Intake Total 1150 Output Total 901 300 Balance 249 -300 Intake: Intake, IV Titration 300 Amount Anidulafungin 100 mg In 100 Sodium Chloride 0.9% 100 ml @ 84 mls/hr IVPB DAILY @1200 [facility] Rx#:[id number] Cefepime 2 gm In Sodium 100 Chloride 0.9% 100 ml @ 25 mls/hr IVPB Q8HR [facility] Rx# :[id number] metroNIDAZOLE-NS PMX 500 100 mg In Saline 1 100ml.bag @ 100 mls/hr IVPB Q8HR [facility] Rx#:[id number] Oral 850 Output: Urine 900 300 Stool 1 Other: Voiding Method Diaper External Catheter External Catheter External Catheter # Voids 1 # Bowel Movements 1 1 - Labs CBC & Chem 7: 11/21/23 06:58 11/21/23 06:58 Labs: Abnormal Lab Results - Last 24 Hours (Table) 11/20/23 11/20/23 11/21/23 Range/Units 17:01 20:38 06:58 RBC 2.81 L (4.10-5.20) X 10*6/uL Hgb 8.4 L (12.0-15.0) g/dL Hct 29.3 L (37.2-46.3) % MCV 104.3 H (80.0-97.0) FL MCHC 28.7 L (32.0-37.0) g/dL RDW 15.4 H (11.5-14.5) % Immature Gran # 0.08 H (0.00-0.04) X 10*3/uL Eosinophils # 0.57 H (0.04-0.35) X 10*3/uL POC Glucose (mg/dL) 144 H 200 H (70-110) mg/dL Calcium (8.7-10.3) mg/dL Magnesium (1.5-2.4) mg/dL ALT (8-44) U/L Albumin (3.8-4.9) g/dL Globulin (1.6-3.3) g/dL Albumin/Globulin Ratio (1.60-3.17) Ratio // Range/Units 06:58 RBC (4.10-5.20) X 10*6/uL Hgb (12.0-15.0) g/dL Hct (37.2-46.3) % MCV (80.0-97.0) FL MCHC (32.0-37.0) g/dL RDW (11.5-14.5) % Immature Gran # (0.00-0.04) X 10*3/uL Eosinophils # (0.04-0.35) X 10*3/uL POC Glucose (mg/dL) (70-110) mg/dL Calcium 8.4 L (8.7-10.3) mg/dL Magnesium 2.5 H (1.5-2.4) mg/dL ALT 7 L (8-44) U/L Albumin 2.5 L (3.8-4.9) g/dL Globulin 4.0 H (1.6-3.3) g/dL Albumin/Globulin Ratio 0.62 L (1.60-3.17) Ratio Assessment and Plan (1) UTI (urinary tract infection) Current Visit: Yes Status: Acute Code(s): N39.0 - URINARY TRACT INFECTION, SITE NOT SPECIFIED SNOMED Code(s): 97509143 (2) Leukocytosis Current Visit: Yes Status: Acute Code(s): D72.829 - ELEVATED WHITE BLOOD CELL COUNT, UNSPECIFIED SNOMED Code(s): 607456516 Plan: 1patient with left lower rib cage pain for which the patient has previously refused CT abdominal pelvis over the last [address] abdominal pelvis on admission did not show any intra-abdominal pathology there was concern for some left sided effusion atelectasis however no significant changes has been noticed on the CT abdominal pelvis this morning this has been discussed with admitting physician as well as with the patient and the patient is currently waiting for transfer to [facility] for surgical evaluation patient is covered with cefepime Flagyl and Eraxis with concern for perforated peptic ulcer and peritonitis and p ossibility of splenic injury, still waiting for transfer to [facility] due to discussion with the admitting team on the floor need to call and report and let them know urgency of this transfer if no transfer by this afternoon local surgeon should be consulted and the patient high risk of complication associated with her condition Dictation was produced using [email or web address] dictation software. please excuse any grammatical, word or spelling errors. Time with Patient: Less than 30
[2023-11-21 17:01] VITALS: BP 113/75
[2023-11-21 17:08] LABS: Glucose,Whole Blood 170 mg/dL (70-110)
[2023-11-21] MEDS: ALPRAZolam 0.25 MG TAB PO PRN (17:53)
[2023-11-21] MEDS ORDERED: CEFEPIME 2 GM in SODIUM CHLORIDE 0.9% 100 ML IVPB SCH (22:00)
== END 2023-11-21 18:11 | disposition short-term general hospital (02) | DRG 193 ==
LOC: EC 18:35 → 6NMEDSUR 20:55 → 4SSUR 11-04 01:02 → OBSVTOIN 11-05 09:55 → 4SSUR 11-10 01:36
PROVIDERS: ADMIT Internal Medicine; ATTEND Internal Medicine
PROC: 05HD33Z Insertion of Infusion Device into Right Cephalic Vein, Percutaneous Approach (ICD-10-PCS; principal; 2023-11-19 10:10)
DX: J18.9 Pneumonia, unspecified organism (principal); I50.33 Acute on chronic diastolic (congestive) heart failure; J96.01 Acute respiratory failure with hypoxia; B37.0 Candidal stomatitis; J98.11 Atelectasis; N39.0 Urinary tract infection, site not specified; S36.039A Unspecified laceration of spleen, initial encounter; Z68.41 Body mass index [BMI] 40.0-44.9, adult; I11.0 Hypertensive heart disease with heart failure; B02.9 Zoster without complications; B95.2 Enterococcus as the cause of diseases classified elsewhere; E11.9 Type 2 diabetes mellitus without complications; E66.01 Morbid (severe) obesity due to excess calories; E78.5 Hyperlipidemia, unspecified; G89.29 Other chronic pain; I07.1 Rheumatic tricuspid insufficiency; I25.10 Atherosclerotic heart disease of native coronary artery without angina pectoris; I27.29 Other secondary pulmonary hypertension; J43.9 Emphysema, unspecified; K25.9 Gastric ulcer, unspecified as acute or chronic, without hemorrhage or perforation; K59.00 Constipation, unspecified; N20.0 Calculus of kidney; N28.1 Cyst of kidney, acquired; N28.89 Other specified disorders of kidney and ureter; Z79.02 Long term (current) use of antithrombotics/antiplatelets; Z79.4 Long term (current) use of insulin; Z79.82 Long term (current) use of aspirin; Z79.84 Long term (current) use of oral hypoglycemic drugs; Z79.899 Other long term (current) drug therapy; Z80.0 Family history of malignant neoplasm of digestive organs; Z80.1 Family history of malignant neoplasm of trachea, bronchus and lung; Z80.3 Family history of malignant neoplasm of breast; Z86.718 Personal history of other venous thrombosis and embolism; Z87.01 Personal history of pneumonia (recurrent); Z87.440 Personal history of urinary (tract) infections; Z87.442 Personal history of urinary calculi; Z87.891 Personal history of nicotine dependence; Z88.0 Allergy status to penicillin; Z95.5 Presence of coronary angioplasty implant and graft
CPT/HCPCS: 36410; 36415; 71045; 71046; 71260; 72072; 72128; 74176; 74177; 76700; 76770; 76937; 80053; 80202; 81001; 82565; 82607; 82746; 83540; 83550; 83605; 83735; 83880; 84100; 84145; 84484; 85025; 85027; 85610; 85730; 86140; 87040; 87070; 87077; 87086; 87186; 87205; 87449; 87635; 93005; 93306; 94640; 94760; 96365; 96366; 96367; 99285

== ENCOUNTER → 2024-12-07 | Outpatient (CLI) | payer MEDICARE, BC ==
[2024-12-07 16:20] LABS: African American GFR (CKD) >90 (>60 ml/min/1.73 sqM); Blood Urea Nitrogen 24 mg/dL (7-17); Non-African American GFR(CKD) 82 (>60 ml/min/1.73 sqM)
--- NOTE | 2024-12-07 18:31 | CT ---
EXAMINATION TYPE: CT chest w con CT DLP: 517.0 mGycm, Automated exposure control for dose reduction was used. DATE OF EXAM: 12/07/2024 5:28 PM COMPARISON: CT chest abdomen pelvis 11/19/2023, CTA chest 04/24/2023 CLINICAL INDICATION:Female, 74 years old with history of G89.4 M79.605G89.4 M79.605; [facility], abnormal x- ray results TECHNIQUE: Multiple axial images were obtained through the chest following the administration of 100 cc of Isovue 300. . Coronal and sagittal reformats reviewed. FINDINGS: LUNGS/ PLEURA: No pleural effusion or pneumothorax. Scattered chronic reticular opacities within the bilateral upper lung and right lung base. No honeycombing. Stable left lower lobe subpleural solid 4 .7 mm pulmonary nodule (series 4, image 23). Stable left lower lobe subpleural 4.3 mm subpleural nodu le (series 4, image 30). Stable right lower lobe subpleural 7.1 mm pulmonary nodule (series 4, image 19). Stable right midlung 11 mm groundglass pulmonary nodule (series 4, image 19). Stable adjacent ri ght midlung 6.8 mm pulmonary nodule (series 4, image 19). No definitive new or enlarging pulmonary no dules. Elevation of the right hemidiaphragm. AIRWAY: Patent and unremarkable.. HEART: Size within normal limits. . No pericardial effusion. Moderate to severe coronary artery calci fications present. Most pronounced along the LAD and circumflex arteries. MEDIASTINUM: No evidence of adenopathy. VASCULATURE: No aortic aneurysm. Mild atherosclerotic calcification of the aorta and its branches. MUSCULOSKELETAL: No acute osseous abnormalities SOFT TISSUES/LYMPH NODES: Unremarkable. LOWER NECK: No significant findings. UPPER ABDOMEN: Renal upper pole partially visualized 6.8 cm simple cyst. Partial visualization of lef t renal simple cyst. No follow-up recommended. Remote injury to the spleen with linear defect. IMPRESSION: 1. No acute thoracic process. 2. Chronic scattered interstitial reticular opacities. Correlate for interstitial lung disease. 3. Stable few pulmonary nodules dating back to 2022. Stability from 2022 indicates benign nodules. 4. Moderate to severe coronary arterial calcifications. [facility], , 12/07/2024 6:28 PM
== END | disposition home or self-care (01) ==
LOC: RADCTMAIN 15:27
PROVIDERS: ATTEND Internal Medicine Critical Care Medicine
DX: I25.10 Atherosclerotic heart disease of native coronary artery without angina pectoris (principal); R91.8 Other nonspecific abnormal finding of lung field
CPT/HCPCS: 82565; 84520; 71260; 36415; Q9967